=== PATIENT | female | born 1950 | race Caucasian/White ===

== ENCOUNTER → 2018-09-28 | Outpatient (CLI) | payer MEDICARE, OTHER ==
[~2018-09-28] MED LIST: CALC600T12 PO; CRAN500C4 PO; CYAN100088 PO; DULO60CA6 PO; FERR-65 PO; FURO40TA4 PO; GABA-488 PO; LEVO750T9 PO; MORP-33 PO; NF-MYC250C PO; NF-PYRD60T PO; NFBIOT1000 PO; OMEP40CA36 PO; ONDN4T PO; OXYC10TA7 PO; PRD10T PO; ROPI0.5T2 PO; SPIR25TA5 PO
[2018-09-28 11:32] LABS: BASOPHILS # (AUTO) 0.1 10^3/uL (0.0-0.1); BASOPHILS % (AUTO) 1 % (0-10); EOSINOPHILS # (AUTO) 0.1 10^3/uL (0.0-0.3); EOSINOPHILS % (AUTO) 1 % (0-10); HEMATOCRIT 34 % (35-52); HEMOGLOBIN 10.7 G/DL (11.5-16.0); LYMPHOCYTES # (AUTO) 2.1 X 10^3 (1.0-4.0); LYMPHOCYTES % (AUTO) 22 % (12-44); MEAN CORPUSCULAR HEMOGLOBIN 33 PG (25-34); MEAN CORPUSCULAR HGB CONC 32 G/DL (32-36); MEAN CORPUSCULAR VOLUME 105 FL (80-99); MEAN PLATELET VOLUME 10.3 FL (7.4-10.4); MONOCYTES # (AUTO) 0.6 X 10^3 (0.0-1.0); MONOCYTES % (AUTO) 6 % (0-12); NEUTROPHILS # (AUTO) 6.8 X 10^3 (1.8-7.8); NEUTROPHILS % (AUTO) 71 % (42-75); PLATELET COUNT 319 10^3/uL (130-400); RED CELL DISTRIBUTION WIDTH 13.5 % (10.0-14.5); WHITE BLOOD COUNT 9.6 10^3/uL (4.3-11.0)
== END ==
LOC: LAB 11:19
PROVIDERS: ATTEND Surgery
DX: L98.494 Non-pressure chronic ulcer of skin of other sites with necrosis of bone (principal)
CPT/HCPCS: 36415; 85025

== ENCOUNTER → 2018-09-28 | Outpatient (CLI) | payer MEDICARE, OTHER | LOC: WOUNDCARE 09:06 | PROVIDERS: ATTEND Surgery | DX: M27.2 Inflammatory conditions of jaws (principal); M86.48 Chronic osteomyelitis with draining sinus, other site; E44.0 Moderate protein-calorie malnutrition; S01.80XA Unspecified open wound of other part of head, initial encounter; Z79.83 Long term (current) use of bisphosphonates | CPT/HCPCS: 99213 ==

== ENCOUNTER → 2018-10-16 | Outpatient (CLI) | payer MEDICARE, OTHER ==
[~2018-10-16] MED LIST changes: +ONDA4TAB11 PO
== END ==
LOC: WOUNDCARE 08:10
PROVIDERS: ATTEND Surgery
DX: M86.48 Chronic osteomyelitis with draining sinus, other site (principal); S01.80XA Unspecified open wound of other part of head, initial encounter; E44.0 Moderate protein-calorie malnutrition; M27.2 Inflammatory conditions of jaws; Z79.83 Long term (current) use of bisphosphonates
CPT/HCPCS: 99212

== ENCOUNTER 2018-10-17 23:47 | Emergency (ER) | payer MEDICARE, OTHER ==
[~2018-10-17] VITALS: Ht 165.1 cm; Wt 51.3 kg
[~2018-10-17 23:47] MED LIST changes: -ONDA4TAB11 PO
--- NOTE | 2018-10-18 00:09 | ED GI ---
General Stated Complaint: FEEDING TUBE CAME OUT Source of Information: Patient Exam Limitations: No Limitations History of Present Illness Date Seen by Provider: Oct 18, 2018 Time Seen by Provider: 23:55 Initial Comments The patient presents to ER by private conveyance from home with chief complaint that she had her jejunum nasal tube displaced tonight. She tried passing it back down herself was unable. She had it placed about 10 days ago at for malabsorption. She has not been able to tolerate any of the oral feeds she was put on. She is now on Isocal which has been working and she gained 8 pounds in the last 10 days. She originally had malabsorption secondary to having a Fidelia-en -Y gastric bypass secondary to multiple adhesions during surgery a few years ago. She also has been having some difficulties with eating because of a necrosis of the right lower mandible for which she is given start hyperbaric treatment with Dr. Dhaliwal next week. She denies any nausea vomiting fevers chills cough. Allergies and Home Medications Allergies Coded Allergies: No Known Drug Allergies (Unverified , 07/07/15) Home Medications Biotin 1,000 Mcg Tablet, 1,000 MCG PO DAILY, (Reported) Calcium Carbonate 600 Mg Tablet, 600 MG PO DAILY, (Reported) Cranberry Extract 500 Mg Capsule, 500 MG PO DAILY, (Reported) Cyanocobalamin (Vitamin B-12) 1,000 Mcg Tablet, 1,000 MCG PO DAILY, (Reported) Duloxetine HCl 60 Mg Capsule.dr, 60 MG PO DAILY, (Reported) Ferrous Sulfate 325 Mg Tablet, 325 MG PO DAILY, (Reported) Furosemide 40 Mg Tablet, 40 MG PO DAILY, (Reported) Gabapentin 300 Mg Capsule, 300 MG PO TID, (Reported) Mycophenolate Mofetil 250 Mg Capsule, 750 MG PO BID Prescribed by: ARIAS SANTANA on 07/09/15 0946 Omeprazole 40 Mg Capsule.dr, 40 MG PO DAILY, (Reported) Ondansetron HCl 4 Mg Tab, 4 MG PO Q6H PRN for NAUSEA, (Reported) Oxycodone HCl 10 Mg Tablet, 10 MG PO Q4H PRN for PAIN, (Reported) Prednisone 10 Mg Tab, 10 MG PO DAILY, (Reported) Pyridostigmine Duke 60 Mg Tab, 60 MG PO TID, (Reported) Ropinirole HCl 0.5 Mg Tablet, 0.5 MG PO HS, (Reported) Spironolactone 25 Mg Tablet, 25 MG PO DAILY, (Reported) Patient Home Medication List Home Medication List Reviewed: Yes Review of Systems Review of Systems Constitutional: No chills, No diaphoresis EENTM: No Blurred Vision, No Double Vision Respiratory: Denies Cough, Denies Shortness of Air Cardiovascular: Denies Chest Pain, Denies Edema Gastrointestinal: Denies Constipated, Denies Diarrhea Genitourinary: Denies Burning, Denies Discharge Musculoskeletal: No back pain, No joint pain Past Aawkbvq-Unqnoj-Msbnsf Hx Patient Social History Alcohol Use: Denies Use Recreational Drug Use: No Smoking Status: Never a Smoker Recent Foreign Travel: No Contact w/Someone Who Travel: No Immunizations Up To Date Date of Pneumonia Vaccine: Aug 18, 2012 Date of Influenza Vaccine: Jul 06, 2015 Past Medical History Pneumonia Currently Using CPAP: No Currently Using BIPAP: No Reproductive Disorders: No Fibromyalgia Anxiety, Depression Family Medical History Diabetes mellitus 19 MOTHER FH: lung cancer 19 FATHER Physical Exam Vital Signs Vital Signs - First Documented 10/18/18 00:08 Temp 99.3 Pulse 64 Resp 18 B/P (MAP) 112/55 (74) Pulse Ox 97 O2 Delivery Room Air Capillary Refill : Height/Weight/BMI Height: 5'6.00" Weight: 108lbs. 9.0oz. 49.067082wm; BMI Method: General Appearance: WD/WN, no apparent distress HEENT: PERRL/EOMI, normal ENT inspection, pharynx normal Neck: non-tender, full range of motion, normal inspection Respiratory: no respiratory distress, no accessory muscle use Cardiovascular: normal peripheral pulses, regular rate, rhythm, no edema Peripheral Pulses: 2+ Radial Pulses (R), 2+ Radial Pulses (L) Gastrointestinal: non tender, soft Progress/Results/Core Measures Results/Orders My Orders Orders - KIRT JAMES Ondansetron Injection (Zofran Injectio (10/18/18 00:30) Chest 1 View, Ap/Pa Only (10/18/18 00:42) Chest 1 View, Ap/Pa Only (10/18/18 ) Medications Given in ED Current Medications Medications Dose Ordered Sig/Lola Route Start Time Stop Time Status Last Admin Dose Admin Ondansetron HCl 4 mg ONCE ONCE IM 10/18/18 00:30 10/18/18 00:31 DC 10/18/18 00:52 4 MG Vital Signs/I&O 10/18/18 00:08 Temp 99.3 Pulse 64 Resp 18 B/P (MAP) 112/55 (74) Pulse Ox 97 O2 Delivery Room Air Progress Progress Note #1: Time: 00:09 Progress Note 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 Progress Note #2: Time: 01:02 Progress Note We'll let her lie on her right side for about 20-30 minutes and then repeat an x -ray. Diagnostic Imaging Diagonstic Imaging: Xray Plain Films/CT/US/NM/MRI: chest, abdomen Comments The distal tip of the nasoduodenal tube is on the left side of the midline moving into or away from the detector. Reviewed: Reviewed by Me Diagonstic Imaging: Xray Plain Films/CT/US/NM/MRI: chest, abdomen Comments No real interval change from previous x-ray. Reviewed: Reviewed by Me Departure Impression Primary Impression: Gastrointestinal tube present Additional Impression: Complaint associated with gastric tube Disposition: 01 HOME, SELF-CARE Condition: Improved Departure-Patient Inst. Decision time for Depature: 02:03 Referrals: SELFHAILEY MD (PCP/Family) Primary Care Physician Patient Instructions: Enteral Feeding Add. Discharge Instructions: Current sleep in her right side tonight. Tomorrow resume your feeds. If you have nausea or vomiting you can take the ondansetron one tablet every 6 hours as needed. Scripts Ondansetron (Ondansetron Odt) 4 Mg Tab.rapdis 4 MG PO Q6H PRN for NAUSEA/VOMITING, #8 TAB 0 Refills Prov: KIRT JAMES 10/18/18 KIRT JAMES Oct 18, 2018 00:09
[2018-10-18] MEDS ORDERED: ONDANSETRON 4 MG/2 ML (SDV) Z0FRAN IM ONE (00:30)
[2018-10-18] MEDS ORDERED: ONDA4TAB11 PO (02:04)
[2018-10-18 02:15] VITALS: BP 98/40
--- NOTE | 2018-10-18 05:44 | Diagnostic Imaging Report ---
INDICATION: CHECK TUBE PLACEMENT COMPARISON: Earlier the same day FINDINGS: Single frontal view of the chest demonstrates normal heart size and pulmonary vascularity. The lungs are well aerated and clear. No large pleural effusion or pneumothorax is seen. The visualized osseous structures show no acute abnormalities. Dobbhoff tube remains coiled in the stomach. IMPRESSION: 1. No acute cardiopulmonary process. 2. Dobbhoff tube coiled in the stomach. Dictated by: Dictated on workstation # [id number]
--- NOTE | 2018-10-18 05:45 | Diagnostic Imaging Report ---
INDICATION: Evaluate Dobbhoff tube COMPARISON: 07/10/2015 FINDINGS: Single frontal view of the chest demonstrates normal heart size and pulmonary vascularity. The lungs are well aerated and clear. No large pleural effusion or pneumothorax is seen. The visualized osseous structures show no acute abnormalities. Indwelling Dobbhoff tube is coiled in the stomach. IMPRESSION: 1. No acute cardiopulmonary process. Dictated by: Dictated on workstation # [id number]
== END 2018-10-18 02:16 | disposition home or self-care (01) ==
LOC: EDUNIT# 23:47 → ER 23:49
DX: K94.23 Gastrostomy malfunction (principal); F41.9 Anxiety disorder, unspecified; F32.9 Major depressive disorder, single episode, unspecified; Z98.84 Bariatric surgery status; Z79.52 Long term (current) use of systemic steroids; Z87.01 Personal history of pneumonia (recurrent); Z80.1 Family history of malignant neoplasm of trachea, bronchus and lung
CPT/HCPCS: 71045

== ENCOUNTER → 2018-10-23 | Outpatient (CLI) | payer MEDICARE, OTHER ==
[~2018-10-23] MED LIST changes: +ONDA4TAB11 PO
== END ==
LOC: WOUNDCARE 08:16
PROVIDERS: ATTEND Surgery
DX: M86.48 Chronic osteomyelitis with draining sinus, other site (principal); S01.80XA Unspecified open wound of other part of head, initial encounter; E44.0 Moderate protein-calorie malnutrition; M27.2 Inflammatory conditions of jaws; Z79.83 Long term (current) use of bisphosphonates
CPT/HCPCS: 99212

== ENCOUNTER → 2018-10-30 | Outpatient (CLI) | payer MEDICARE, OTHER | LOC: WOUNDCARE 08:21 | PROVIDERS: ATTEND Surgery | DX: M86.48 Chronic osteomyelitis with draining sinus, other site (principal); S01.80XA Unspecified open wound of other part of head, initial encounter; E44.0 Moderate protein-calorie malnutrition; M27.2 Inflammatory conditions of jaws; X58.XXXA Exposure to other specified factors, initial encounter; Z79.83 Long term (current) use of bisphosphonates | CPT/HCPCS: 99212 ==

== ENCOUNTER → 2018-11-06 | Outpatient (CLI) | payer MEDICARE, OTHER | LOC: WOUNDCARE 08:12 | PROVIDERS: ATTEND Surgery | DX: M86.48 Chronic osteomyelitis with draining sinus, other site (principal); S01.80XA Unspecified open wound of other part of head, initial encounter; E44.0 Moderate protein-calorie malnutrition; M27.2 Inflammatory conditions of jaws; Z79.83 Long term (current) use of bisphosphonates; X58.XXXA Exposure to other specified factors, initial encounter | CPT/HCPCS: 99212 ==

== ENCOUNTER → 2018-11-13 | Outpatient (CLI) | payer MEDICARE, OTHER | LOC: WOUNDCARE 08:08 | PROVIDERS: ATTEND Surgery | DX: M86.48 Chronic osteomyelitis with draining sinus, other site (principal); S01.80XA Unspecified open wound of other part of head, initial encounter; E44.0 Moderate protein-calorie malnutrition; M27.2 Inflammatory conditions of jaws; H61.21 Impacted cerumen, right ear; Z79.83 Long term (current) use of bisphosphonates; X58.XXXA Exposure to other specified factors, initial encounter | CPT/HCPCS: 99212 ==

== ENCOUNTER → 2018-11-27 | Outpatient (CLI) | payer MEDICARE, OTHER | LOC: WOUNDCARE 08:09 | PROVIDERS: ATTEND Surgery | DX: S01.80XA Unspecified open wound of other part of head, initial encounter (principal); M86.48 Chronic osteomyelitis with draining sinus, other site; M27.2 Inflammatory conditions of jaws; T70.0XXA Otitic barotrauma, initial encounter; Z79.83 Long term (current) use of bisphosphonates; X58.XXXA Exposure to other specified factors, initial encounter | CPT/HCPCS: 99212 ==

== ENCOUNTER → 2018-12-11 | Outpatient (CLI) | payer MEDICARE, OTHER | LOC: WOUNDCARE 08:15 | PROVIDERS: ATTEND Surgery | DX: S01.80XA Unspecified open wound of other part of head, initial encounter (principal); M86.48 Chronic osteomyelitis with draining sinus, other site; M27.2 Inflammatory conditions of jaws; Z79.83 Long term (current) use of bisphosphonates; X58.XXXA Exposure to other specified factors, initial encounter | CPT/HCPCS: 99212 ==

== ENCOUNTER → 2018-12-23 | Outpatient (CLI) | payer MEDICARE, OTHER | LOC: WOUNDCARE 12:36 | PROVIDERS: ATTEND Nurse Practitioner | DX: M86.48 Chronic osteomyelitis with draining sinus, other site (principal); M27.2 Inflammatory conditions of jaws; S01.80XA Unspecified open wound of other part of head, initial encounter; Z79.83 Long term (current) use of bisphosphonates; X58.XXXA Exposure to other specified factors, initial encounter | CPT/HCPCS: 99212 ==

== ENCOUNTER → 2018-12-30 | Outpatient (CLI) | payer MEDICARE, OTHER | LOC: WOUNDCARE 09:29 | PROVIDERS: ATTEND Surgery | DX: M86.48 Chronic osteomyelitis with draining sinus, other site (principal); M27.2 Inflammatory conditions of jaws; S01.80XA Unspecified open wound of other part of head, initial encounter; X58.XXXA Exposure to other specified factors, initial encounter; Z79.83 Long term (current) use of bisphosphonates | CPT/HCPCS: 99212 ==

== ENCOUNTER → 2019-01-04 | Outpatient (CLI) | payer MEDICARE, OTHER | LOC: WOUNDCARE 08:06 | PROVIDERS: ATTEND Surgery | DX: M86.48 Chronic osteomyelitis with draining sinus, other site (principal); M27.2 Inflammatory conditions of jaws | CPT/HCPCS: 99212 ==

== ENCOUNTER → 2019-01-15 | Outpatient (CLI) | payer MEDICARE, OTHER | LOC: WOUNDCARE 08:01 | PROVIDERS: ATTEND Surgery | DX: M86.48 Chronic osteomyelitis with draining sinus, other site (principal); M27.2 Inflammatory conditions of jaws | CPT/HCPCS: 99212 ==

== ENCOUNTER → 2019-01-20 | Outpatient (CLI) | payer MEDICARE, OTHER | LOC: WOUNDCARE 08:11 | PROVIDERS: ATTEND Surgery | DX: M86.48 Chronic osteomyelitis with draining sinus, other site (principal); M27.2 Inflammatory conditions of jaws | CPT/HCPCS: 99212 ==

== ENCOUNTER 2019-01-26 08:30 | Outpatient (RCR) | payer MEDICARE, OTHER | END 2019-01-26 12:00 | disposition home or self-care (01) | LOC: WOUNDCARE 08:30 | PROVIDERS: ATTEND Surgery | DX: M27.2 Inflammatory conditions of jaws (principal); M86.48 Chronic osteomyelitis with draining sinus, other site; S01.80XA Unspecified open wound of other part of head, initial encounter; E44.0 Moderate protein-calorie malnutrition; H61.21 Impacted cerumen, right ear; Z79.83 Long term (current) use of bisphosphonates; X58.XXXA Exposure to other specified factors, initial encounter | CPT/HCPCS: 99183; 99212 ==

== ENCOUNTER → 2019-01-27 | Outpatient (CLI) | payer MEDICARE, OTHER | LOC: WOUNDCARE 08:17 | PROVIDERS: ATTEND Surgery | DX: M86.48 Chronic osteomyelitis with draining sinus, other site (principal); M27.2 Inflammatory conditions of jaws | CPT/HCPCS: 99212 ==

== ENCOUNTER → 2019-02-15 | Outpatient (CLI) | payer MEDICARE, OTHER | LOC: WOUNDCARE 13:01 | PROVIDERS: ATTEND Surgery | DX: M86.48 Chronic osteomyelitis with draining sinus, other site (principal); M27.2 Inflammatory conditions of jaws | CPT/HCPCS: 99212 ==

== ENCOUNTER → 2019-03-10 | Outpatient (CLI) | payer MEDICARE, OTHER | LOC: WOUNDCARE 08:53 | PROVIDERS: ATTEND Surgery | DX: S01.80XA Unspecified open wound of other part of head, initial encounter (principal); M86.48 Chronic osteomyelitis with draining sinus, other site; M27.2 Inflammatory conditions of jaws; I96 Gangrene, not elsewhere classified | CPT/HCPCS: 99212 ==

== ENCOUNTER → 2019-03-23 | Outpatient (CLI) | payer MEDICARE, OTHER | LOC: WOUNDCARE 14:00 | PROVIDERS: ATTEND Surgery | DX: M86.48 Chronic osteomyelitis with draining sinus, other site (principal); S01.80XA Unspecified open wound of other part of head, initial encounter; M27.2 Inflammatory conditions of jaws; I96 Gangrene, not elsewhere classified | CPT/HCPCS: 99212 ==

== ENCOUNTER → 2019-04-02 | Outpatient (CLI) | payer MEDICARE, OTHER | LOC: WOUNDCARE 08:20 | PROVIDERS: ATTEND Surgery | DX: M46.48 Discitis, unspecified, sacral and sacrococcygeal region (principal); S01.80XA Unspecified open wound of other part of head, initial encounter; M27.2 Inflammatory conditions of jaws; E44.1 Mild protein-calorie malnutrition; I96 Gangrene, not elsewhere classified | CPT/HCPCS: 87070; 87075; 87076; 87077; 87205; 99212 ==

== ENCOUNTER → 2019-04-02 | Outpatient (CLI) | payer MEDICARE, OTHER | LOC: LAB 09:00 | PROVIDERS: ATTEND Surgery | DX: M86.48 Chronic osteomyelitis with draining sinus, other site (principal); S01.80XA Unspecified open wound of other part of head, initial encounter; M27.2 Inflammatory conditions of jaws; E44.1 Mild protein-calorie malnutrition | CPT/HCPCS: 36415; 84134; 85652 ==

== ENCOUNTER → 2019-04-07 | Outpatient (CLI) | payer MEDICARE, OTHER | LOC: WOUNDCARE 14:37 | PROVIDERS: ATTEND Surgery | DX: M86.48 Chronic osteomyelitis with draining sinus, other site (principal); S01.80XA Unspecified open wound of other part of head, initial encounter; M27.2 Inflammatory conditions of jaws; E44.1 Mild protein-calorie malnutrition; I96 Gangrene, not elsewhere classified | CPT/HCPCS: 99212 ==

== ENCOUNTER → 2019-04-16 | Outpatient (CLI) | payer MEDICARE, OTHER | LOC: WOUNDCARE 08:04 | PROVIDERS: ATTEND Surgery | DX: M86.48 Chronic osteomyelitis with draining sinus, other site (principal); S01.80XA Unspecified open wound of other part of head, initial encounter; M27.2 Inflammatory conditions of jaws; E44.1 Mild protein-calorie malnutrition | CPT/HCPCS: 99212 ==

== ENCOUNTER → 2019-04-23 | Outpatient (CLI) | payer MEDICARE, OTHER | LOC: WOUNDCARE 10:08 | PROVIDERS: ATTEND Surgery | DX: M86.48 Chronic osteomyelitis with draining sinus, other site (principal); S01.80XA Unspecified open wound of other part of head, initial encounter; M27.2 Inflammatory conditions of jaws; E44.1 Mild protein-calorie malnutrition | CPT/HCPCS: 99212 ==

== ENCOUNTER → 2019-04-28 | Outpatient (CLI) | payer MEDICARE, OTHER | LOC: WOUNDCARE 10:19 | PROVIDERS: ATTEND Surgery | DX: M86.48 Chronic osteomyelitis with draining sinus, other site (principal); S01.80XA Unspecified open wound of other part of head, initial encounter; M27.2 Inflammatory conditions of jaws; E44.1 Mild protein-calorie malnutrition | CPT/HCPCS: 99212 ==

== ENCOUNTER → 2019-05-12 | Outpatient (CLI) | payer MEDICARE, OTHER | LOC: WOUNDCARE 09:54 | PROVIDERS: ATTEND Surgery | DX: M86.48 Chronic osteomyelitis with draining sinus, other site (principal); S01.80XA Unspecified open wound of other part of head, initial encounter; M27.2 Inflammatory conditions of jaws; E44.1 Mild protein-calorie malnutrition | CPT/HCPCS: 99212 ==

== ENCOUNTER → 2019-05-18 | Outpatient (CLI) | payer MEDICARE, OTHER ==
--- NOTE | 2019-05-18 09:59 | Diagnostic Imaging Report ---
INDICATION: Mid back pain. COMPARISON: None. FINDINGS: 3 views of the thoracic column demonstrate a single mid thoracic compression fracture with approximately 30% height loss. This is chronic and was seen on the 2015 CT examination. Questionable minimal compression deformity seen involving T11. This was not present on the 2015 CT. There is no osseous lesion. Mild degenerative changes are seen throughout. IMPRESSION: 1. Age indeterminate T11 compression fracture. 2. Chronic T7 compression fracture. 3. Mild diffuse degenerative disc disease. Dictated by: Dictated on workstation # [id number]
== END ==
LOC: RAD FS 09:28
PROVIDERS: ATTEND Family Medicine
DX: M48.54XA Collapsed vertebra, not elsewhere classified, thoracic region, initial encounter for fracture (principal); M51.34 Other intervertebral disc degeneration, thoracic region
CPT/HCPCS: 72072

== ENCOUNTER → 2019-05-24 | Outpatient (CLI) | payer MEDICARE, OTHER | LOC: WOUNDCARE 08:21 | PROVIDERS: ATTEND Surgery | DX: M86.48 Chronic osteomyelitis with draining sinus, other site (principal); S01.80XA Unspecified open wound of other part of head, initial encounter; M27.2 Inflammatory conditions of jaws; E44.1 Mild protein-calorie malnutrition | CPT/HCPCS: 99212 ==

== ENCOUNTER 2019-06-09 09:39 | Inpatient (IN) | payer MEDICARE, OTHER ==
[~2019-06-09] VITALS: Ht 165.1 cm; Wt 56.1 kg
[2019-06-09] MEDS ORDERED: LOPERAMIDE 2 MG (IMODIUM) TABLET PO PRN (10:30)
[2019-06-09] MEDS ORDERED: diphenhydrAMINE 25 MG TAB (BENADRYL) PO PRN (10:30)
[2019-06-09] MEDS ORDERED: MELATONIN 3 MG TABLET PO PRN (10:30)
[2019-06-09] MEDS ORDERED: ONDANSETRON 4 MG (ZOFRAN) ORAL DISSOLVE TAB PO PRN (10:30)
[2019-06-09] MEDS ORDERED: CALCIUM CARBONATE 500 MG (TUMS) TAB.CHEW PO PRN (10:30)
[2019-06-09] MEDS ORDERED: DOCUSATE SODIUM 100 MG (COLACE) CAP PO PRN (10:30)
[2019-06-09] MEDS ORDERED: BIOT10005 PO (13:40)
[2019-06-09] MEDS ORDERED: POLY17PO6 PO (13:40)
[2019-06-09] MEDS ORDERED: VITA-203 PO (13:40)
[2019-06-09] MEDS ORDERED: CALC-231 PO (13:40)
[2019-06-09] MEDS ORDERED: IMMU1VIA SC (13:40)
[2019-06-09] MEDS ORDERED: CARV3.122 PO (13:40)
[2019-06-09] MEDS ORDERED: SENN-145 PO (13:40)
[2019-06-09] MEDS ORDERED: TEMA30CA PO (13:40)
[2019-06-09] MEDS ORDERED: DOXY100C2 PO (13:40)
[2019-06-09] MEDS ORDERED: LIPA1CAP4 PO ×2 (13:40)
[2019-06-09] MEDS ORDERED: CHOL5000 PO (13:40)
[2019-06-09] MEDS ORDERED: DULO60CA59 PO (13:40)
[2019-06-09] MEDS ORDERED: PRD20T JT (13:40)
[2019-06-09] MEDS ORDERED: MULT1TAB69 PO (13:40)
[2019-06-09] MEDS ORDERED: MELO15TA39 PO (13:40)
[2019-06-09] MEDS ORDERED: ERGO50006 PO (13:40)
[2019-06-09] MEDS ORDERED: PYRI100T2 PO (13:40)
[2019-06-09] MEDS ORDERED: PRAV10TA PO (13:40)
[2019-06-09] MEDS ORDERED: CYAN500T44 PO (13:40)
[2019-06-09] MEDS ORDERED: CALC-962 PO (13:48)
--- NOTE | 2019-06-09 13:49 | NUR ---
UPDATED MED REC WITH DISCHARGE ORDERS FROM AT THIS TIME. WHEN THE PATIENT ARRIVES AND I CAN SEE THE EXT MED HX I WILL CHECK THAT WITH WHAT WAS ON THE DISCHARGE FROM . I WILL CHANGE THE MED REC BACK TO WHAT THE PATIENT WAS TAKING PRIOR TO DISCHARGE FROM AT A LATER DATE FOR PROPER DISCHARGE TO HOME ORDERS. Addendum: 06/11/19 at 1100 by ANGELO SETH [facility] REMOVED NEW PRESCRIPTION ORDERED FOR PREDNISONE. I COMPARED THE OTHER ORDERS WITH THE EXT MED HX. ROPINIROLE 0.5MG 2 TABS AT HS WAS CONTINUED HOWEVER ACCORDING TO THE EXT MED HX ROPINIROLE 0.5MG #30 WAS FILLED 05-14-19 - I UPDATED THE MED REC WITH 1 AT HS DIRECTIONS. DOXYCYCLINE 100MG BID WAS CONTINUED, ACCORDING TO THE EXT MED HX IT WAS LAST FILLED #60 03-30-19 - I LEFT IT ON THE MED REC BUT NOTED THE PAST DUE FILL DATE. IN ADDITION TRAMADOL 50MG 1-2 BID PRN WAS FILLED #116 05-21-19 - THIS WAS NOT ADDRESSED ON THE DISCHARGE INSTRUCTIONS, I ADDED IT TO THE MED REC AT THIS TIME TO BE ADDRESSED AT DISCHARGE. OTC MEDS REPORTED: BIOTIN 10,000 DAILY CALCIUM +D TID VITAMIN D3 5000 UNITS DAILY B 12 DAILY IRON 325MG DAILY MTV 2 DAILY MIRALAX DAILY B6 DAILY SENNA S BID VITAMIN A DAILY
--- NOTE | 2019-06-09 21:10 | NUR ---
QuianaJack becker admitted to room 228-1, with an admitting diagnosis of Myasthenia Gravis Exacerbation, on 06/09/19 from home via private vehicle, accompanied by family. JACK CARDONA introduced to surroundings, call light, bed controls, phone, TV, temperature control, lights, meal times, smoking policy, visitor policy, side rail policy, bathrooms and showers. Patient Rights given to patient in the handbook. JACK CARDONA verbalizes understanding that [facility] is not responsible for the loss or damage to any personal effects or valuables that are kept in the patients posession during their hospitalization. The following Patient Care Plans were discussed with the patient and her family: Discharge Planning,Physical therapy, and tissue perfusion. JACK CARDONA verbalizes understanding of Interdisciplinary Patient Education. Patient and family were informed about the Rapid Response Team and its purpose. Patient received Patient Rights Booklet, which includes Privacy Act Statement and Data Collection Information Summary.
[2019-06-09] MEDS: SENNA W/DOCUSATE (SENOKOT S) TABLET PO SCH (21:47)
[2019-06-09 21:50] VITALS: BP 115/56
[2019-06-09 21:53] VITALS: BP 115/56
[2019-06-09] MEDS: rOPINIRole 0.25 MG (REQUIP) TAB PO SCH (22:16)
[2019-06-10] MEDS: FERROUS SULF 325 MG (IRON) TAB PO SCH (06:08)
[2019-06-10] MEDS: LIPASE/AMYLASE/PROTEASE (PANCRELIPASE) 5,000 UNITS CAP PO SCH ×3 (06:08→17:22)
[2019-06-10] MEDS: predniSONE 20 MG TAB PO SCH (06:08)
[2019-06-10] MEDS: MULTIVIT W/MINERALS TAB (THERAGRAN M) PO SCH (06:08)
[2019-06-10] MEDS: CYANOCOBALAMIN 1,000 MCG (VITAMIN B-12) TABLET PO SCH ×2 (06:10→09:53)
[2019-06-10 06:33] VITALS: BP 126/64
[2019-06-10] MEDS ORDERED: FLU QUADRIvalent (5+ YOA) 2019-2020 (AFLURIA) 0.5 ML IM ONE (07:15)
[2019-06-10] MEDS ORDERED: LIPASE/AMYLASE/PROTEASE (PANCRELIPASE) 5,000 UNITS CAP PO PRN (08:00)
[2019-06-10] MEDS ORDERED: DOXYCYCLINE 100 MG (VIBRAMYCIN) TABLET PO SCH (09:00)
--- NOTE | 2019-06-10 09:39 | PM&R H&P / Post Admit Assess ---
History of Present Illness HPI/Chief Complaint PCP Dr. Carbone CC: Severe debility with MyastheniaGravis HPI: This is a pt who is being transferredfrom Med after and ICU coursefollowing klebsiella pneumoniaseptic shock, completed Meropenem and. extubated doing very well. 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 J Tube maintained for nutrition support and that did get replaced prior to transfer from since a piece had broken off when she was getting into the car to come to rehab She has been to rehab in the past and she usually runs low on minerals and B12 due to gastric bypass before. Her Hgb remains stable at 11.9 and her phosphorus was low but it was 2.4 today and creatinine remains normal at 0.6 She remains on Prednisone 40mg since she is tolerating her diet well.PLOF is use of walker at home and mostly independent with ADL's. Elliot Gutiérrez, MSIII: Barriers to discharge/return home: * Pneumonia has resolved, however she reports she remains SOB * Main concern for therapy is her endurance and SOB * Otherwise feels capable of going about her ADLs, has assistance from her at home. Looks forward to numerous family events next year. 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, continues to see for management * PE * L eye ptosis noted * On auscultation, heart RRR, lungs CTAB * Strength testing 5 for UE, LE * Patellar reflex present on L, not elicited on R * No deficits noted on exam of CN 7 * on testing of CN 3,4,6, noted L eye nystagmus when looking down and away Source: patient, old records Exam Limitations: no limitations Date Seen 06/10/19 Time Seen by a Provider: 08:30 Attending Physician Brenda Phillips DO PCP Jesus Carbone MD Referring Physician Date of Admission Jun 09, 2019 at 21:01 Home Medications & Allergies Home Medications Reviewed patient Home Medication Reconciliation performed by pharmacy medication reconciliations injection molding technician and/or nursing. Patients Allergies have been reviewed. Allergies Allergies Coded Allergies diphenhydramine (Verified Allergy, Intermediate, MUSCLE PAIN; AGITATION, 06/09/19) promethazine (Verified Allergy, Mild, AGITATION, 06/09/19) Past Mgbpqku-Smgdwj-Lhozjs Hx Past Med/Social Hx: Reviewed Nursing Past Med/Soc Hx, Reviewed and Corrections made Patient Social History Marrital Status: Employed/Student: retired Alcohol Use: Denies Use Recreational Drug Use: No Smoking Status: Never a Smoker Physical Abuse Screen: No Sexual Abuse: No Recent Foreign Travel: No Contact w/other who traveled: No Recent Hopitalizations: Yes (05/28/19) Recent Infectious Disease Expo: No Immunizations Up To Date Date of Pneumonia Vaccine: Aug 18, 2012 Date of Influenza Vaccine: Jul 06, 2015 Seasonal Allergies Seasonal Allergies: No Past Medical History Currently Using CPAP: No Currently Using BIPAP: No MG 8 yrs ago Reproductive: No Sexually Transmitted Disease: No HIV/AIDS: No Female Reproductive Disorders: Denies Gastrointestinal: Pancreatitis, Chronic Diarrhea Musculoskeletal: Osteoporosis, Fractures HEENT: Tonsilitis Loss of Vision: Denies Hearing Impairment: Denies Psychosocial: Anxiety, Depression History of Blood Disorders: No Adverse Reaction to Blood Castellanos: No Family History Diabetes mellitus 19 MOTHER FH: lung cancer 19 FATHER Review of Systems Constitutional: see HPI, malaise, weakness EENTM: no symptoms reported Respiratory: dyspnea on exertion Cardiovascular: no symptoms reported Gastrointestinal: no symptoms reported Genitourinary: no symptoms reported Musculoskeletal: back pain, joint pain Skin: no symptoms reported Psychiatric/Neurological: No Symptoms Reported All Other Systems Reviewed Negative Unless Noted: Yes Physical Exam Exam Vital Signs Vital Signs Date Time Temp Pulse Resp B/P (MAP) Pulse Ox O2 Delivery O2 Flow Rate FiO2 06/10/19 08:15 Room Air 06/10/19 06:33 36.6 81 18 126/64 (84) 91 Capillary Refill : General Appearance: No Apparent Distress, WD/WN, Chronically ill, Cachetic, Thin HEENT: PERRL/EOMI, Normal ENT Inspection, Pharynx Normal, Moist Mucous Membranes Neck: Full Range of Motion, Normal Inspection, Non Tender, Supple Respiratory: Chest Non Tender, Lungs Clear, Normal Breath Sounds, No Accessory Muscle Use, No Respiratory Distress Cardiovascular: Regular Rate, Rhythm, No Edema, No Gallop, No JVD, No Murmur Gastrointestinal: Normal Bowel Sounds, No Organomegaly, No Pulsatile Mass, Non Tender, Soft Back: Normal Inspection, No CVA Tenderness, No Vertebral Tenderness Extremity: Normal Capillary Refill, Normal Inspection, Normal Range of Motion, Non Tender, No Calf Tenderness, No Pedal Edema Neurologic/Psychiatric: Alert, Oriented x3, No Motor/Sensory Deficits, Normal Mood/Affect, online education manager II-XII Norm as Tested, Motor Weakness (generalized all extremities) Skin: Normal Color, Warm/Dry Lymphatic: No Adenopathy Results Results/Procedures Labs Patient resulted labs reviewed. Assessment/Plan Assessment and Plan Assess & Plan/Chief Complaint Assessment: MG s/p vent dependency s/p Klebsiella pneumoniae Osteonecrosis of the jaw hx Gastric bypass hx Vitamin deficiency Chronic diarrhea Malabsorption Plan: Home meds IRF protocol Checked meds (1) Myasthenia gravis Status: Acute (2) S/P gastric bypass (3) Malnutrition (4) B12 deficiency (5) History of ventilator dependency (6) Klebsiella pneumonia (7) Osteonecrosis of jaw (8) Gastrointestinal tube present Status: Acute Post Admission Physician Asses Date seen by provider: Jun 10, 2019 Time seen by provider: 08:30 Admisison Dx: (1) Myasthenia gravis Status: Acute The preadmission screen agrees with the post admission assessment that the patient is a good candidate for inpatient rehabilitation. The patient will have a comprehensive program of inpatient rehabilitation with a goal of maximizing level of functional independence prior to discharge home with family. The patient will have PT/OT ninety minutes per day, each discipline, five days a week for gait, strengthening, conditioning, balance, ADLs, any patient/family/caregiver training as necessary. Speech therapy to do cognitive assessment and treat as indicated. Rehabilitation nursing to assist with bowel, bladder, skin, wound care, medication administration, pain management. Relocation Counselor to assist with discharge planning, community reentry. SCD's for DVT prophylaxis. She appears to be well motivated to participate in three hours of therapy a day. She should be able to tolerate three hours of therapy a day from a medical standpoint. She should benefit from the three hours of therapy a day. She has a reasonable discharge plan, reasonable discharge rehabilitation goals and a supportive family. She has various comorbidities that need to be closely monitored with medications and treatments adjusted on a daily basis as needed. These include: see list Barriers to discharge for this patient who had been independent prior to this are for her to be modified independent to supervision for ADLs and mobility skills prior to discharge home with family, so as to lessen the burden of the caregivers. Risks for this patient include: 1. Fall 2. Fracture 3. DVT 4. Pulmonary embolism 5. Wound infection 6. Skin breakdown 7. Contractures 8. Poorly controlled pain 9. Urinary retention 10. UTI 11. Respiratory infection 12. Aspiration Estimated Length of Stay: 7 days Prognosis: Rehab prognosis appears good for goal of discharge home with family modified independent to supervision for ADLs and mobility skills. BRENDA PHILLIPS DO Jun 10, 2019 09:39
--- NOTE | 2019-06-10 09:47 | Occupational Therapy Eval ---
OT Evaluation-General/PLF Medical Diagnosis Admission Date Jun 09, 2019 at 21:01 Medical Diagnosis: sepsis, pneumonia, myasthenia gravis Onset Date: Jun 03, 2019 Therapy Diagnosis Therapy Diagnosis: decreased functional mobility and ADL function Height/Weight Height (Feet): 5 Height (Inches): 5.00 Weight (Pounds): 113 Weight (Ounces): 0 Precautions Precautions/Isolations: Fall Prevention, Standard Precautions Safety Interventions: Reorient-Attempt Weight Bear Status Weight Bearing Restriction: Weight Bearing/Tolerated Referral Physician: Brenda Pearson DO Referral Reason: Activity Tolerance, Self Care, Evaluation/Treatment, Strengthening/ROM Medical History Pertinent Medical History: GERD Additional Medical History arthritis, pancreatitis, CHD, GERD Current History aspiration; Pneumonia/ sepsis; pt experiencing MG symptoms Reviewed History: Yes Social History Home: Single Level Current Living Status: Spouse Entry Into Home: Stairs With Railing Steps Into Home: 1 Steps Inside Home: 0 Pt lives with spouse, pt expresses spouse also has health concerns. Pt and sp ouse have 1 son within immediate area, 2 children further away. ADL-Prior Level of Function SCALE: Activities may be completed with or without assistive devices. 8-Lxckmpfhes-bfrskwn completes the activity by him/herself with no assistance from a helper. 5-Set-up or Clean-up Assistance-helper sets up or cleans up; patient completes activity. [place] assists only prior to or following the activity. 4-Supervision or Touching Assistance-helper provides verbal cues and/or touching/steadying and/or contact guard assistance as patient completes activity. Assistance may be provided throughout the activity or intermittently. 3-Partial/Moderate Assistance-helper does LESS THAN HALF the effort. Weiser lifts, holds or supports trunk or limbs, but provides less than half the effort. 2-Substantial/Maximal Assistance-helper does MORE THAN HALF the effort. [place]iser lifts or holds trunk or limbs and provides more than half the effort. 0-Adiecblpm-uwxbkm does ALL the effort. Patient does none of the effort to complete the activity. Or, the assistance of 2 or more helpers is required for the patient to complete the activity. If activity was not attempted, code reason: 7-Patient Refused. 9-Not Applicable-not attempted and the patient did not perform the activity before the current illness, exacerbation or injury. 10-Not Attempted due to Environmental Limitations-(lack of equipment, weather restraints, etc.). 88-Not Attempted due to Medical Conditions or Safety Concerns. Self Care: Independent Functional Cognition: Independent DME/Equipment: Bath Chair, Grab Bars (inside walk in shower) DME/Equipment Comments Pt has FWW, used intermittently prior to hospitalization. Occupation: [employer] Self: Yes (did not immediately prior to hospitalization) Leisure Interests: kori OT Current Status Subjective Pt seen reclined in bed, alert and oriented; states "uncomfort" of abdominal tube, expresses she typically has a sponge between skin/ tubing for comfort. Nursing notified. Pt agreeable to OT eval/ treat. Mental Status/Objective Patient Orientation: Person, Place, Time, Situation, Normal For Age Current Glasses/Contacts: Yes Hearing Aids: No Dentures/Partials: Yes Hand Dominance: Left Upper Extremity ROM Impaired BUE L shoulder flexion ~90* R shoulder flexion ~120* Upper Extremity Coordination WFL BUE Upper Extremity Sensation WFL BUE Pt states R LE nerve pain and restless leg syndrome Upper Extremity Strength Impaired BUE 3+/5 ADL-Treatment Eating (QC): 6 Oral Hygiene (QC): 6 (managed packaging, brushed mouth with sponge) Shower/Bathe Self (QC): 5 (SUP) Upper Body Dressing (QC): 5 (SUP) Lower Body Dressing (QC): 5 (SUP) On/Off Footwear (QC): 6 (Completes while sitting) Toileting Hygiene (QC): 6 (Completes with thoroughness) Toilet Transfer (QC): 5 (SBA ) Other Treatments Pt completes ADLs within room, states she did not use FWW immediately prior to hospitalization. Pt utilizes FWW for functional mobility, has good dynamic standing balance. Pt completes grooming at sink, including deodorant and hair care with SUP while seated on FWW. Pt demonstrates good knowledge of current status and past medical history, able to utilize paper/ pen for memory techniques. Pt ambulates with SBA with FWW to therapy gym, states SOB during talking and at night due to anxious thoughts since night she aspirated (1 week ago). Pt states she attempts deep breathing but is anxious that aspiration will happen again. Pt educated and demonstrates back diaphragmatic breathing techniques, pt educated on benefits and use of recoil method to enable greater breathing. Pt educated on benefits of sitting rather than laying down during rehabilitation, and ARU expectations. Pt returns to room, seated in recliner. Pt completes 3 UE theraband exercises with cues for positioning and repetitions; pt educated on not overdoing self, but completing when feeling energized. Pt states goal is to increase safety and endurance. Pt return-demonstrates 3 back/ UE exercises. Pt left with call light in reach, all needs met. Education OT Patient Education: Correct positioning, Disease process, Energy conservation, Exercise program, Home exercise program, Purpose of tx/functional activities, Rehab process, Safety issues Teaching Recipient: Patient Teaching Methods: Demonstration, Discussion Response to Teaching: Verbalize Understanding, Return Demonstration OT Short Term Goals Short Term Goals Eating(FIM): 7 Grooming(FIM): 7 Upper Body Dressing(FIM): 6 Lower Body Dressing(FIM): 6 Toilet/Commode Transfer(FIM): 6 Additional Short Term Goals: 1-Demonstrate ADL Tasks, 2-Verbalize Understanding, 3-ImproveStrength/Mary Grace 1=Demonstrate adherence to instructed precautions during ADL tasks. 2=Patient will verbalize/demonstrate understanding of assistive devices/modifications for ADL. 3=Patient will improve strength/tolerance for activity to enable patient to perform ADL's. OT Retirement Goals Retirement Goals Eating (QC): 6 Oral Hygiene (QC): 6 Shower/Bathe Self (QC): 6 Upper Body Dressing (QC): 6 Lower Body Dressing (QC): 6 On/Off Footwear (QC): 6 Toileting Hygiene (QC): 6 Toilet/Commode Transfer (QC): 6 Additional Goals: 1-Demonstrate ADL Tasks, 2-Verbalize Understanding, 3- ImproveStrength/Mary Grace 1=Demonstrate adherence to instructed precautions during ADL tasks. 2=Patient will verbalize/demonstrate understanding of assistive devices/modifications for ADL. 3=Patient will improve strength/tolerance for activity to enable patient to perform ADL's. OT Education/Plan Problem List/Assessment Assessment: Decreased Activ Tolerance, Decreased UE Strength, Impaired I ADL's, Impaired Self-Care Skills, Restricted Funct UE ROM Discharge Recommendations Plan/Recommendations: Continue POC Therapy Discharge Recommendati: Intermittent Supervision Equpiment Recommendations-D/C: None Patient/Family Goals Pt states goals are to gain endurance and strength. Treatment Plan/Plan of Care Treatment,Training & Education: Yes Patient would benefit from OT for education, treatment and training to promote independence in ADL's, mobility, safety and/or upper extremity function for ADL's. Plan of Care: ADL Retraining, Functional Mobility, Group Exercise/Act as Ind, UE Funct Exercise/Act Treatment Duration: Jun 24, 2019 Frequency: At least 5 of 7 days/Wk (IRF) Estimated Hrs Per Day: 1.5 hours per day Agreement: Yes Rehab Potential: Good Time/GCodes Start Time: 08:15 Stop Time: 09:45 Total Time Billed (hr/min): 90 Billed Treatment Time 1, EVM (15), ADL 4 (60), EX (15)= 90 RAMIRO MAYS OTR Jun 10, 2019 09:47
[2019-06-10] MEDS: VITAMIN D2 50,000 UNITS (1.25 MG) CAP PO SCH (09:51)
[2019-06-10] MEDS: DULoxetine 30 MG (CYMBALTA) CAP PO SCH (09:52)
[2019-06-10] MEDS: PYRIDOXINE (VITAMIN B-6) 50 MG TABLET PO SCH (09:52)
[2019-06-10] MEDS: CARVEDILOL 3.125 MG (COREG) TABLET PO SCH ×2 (09:53→20:32)
[2019-06-10] MEDS: MELOXICAM 7.5 MG (MOBIC) TABLET PO SCH (09:53)
[2019-06-10] MEDS: PANTOPRAZOLE 40 MG (PROTONIX) TAB PO SCH (09:53)
[2019-06-10] MEDS: VITAMIN D3 5,000 UNITS (CHOLECALCIFEROL ) CAPSULE PO SCH (09:53)
[2019-06-10] MEDS: SPIRONOLACTONE 25 MG (ALDACTONE) TAB PO SCH (09:53)
[2019-06-10] MEDS: GABAPENTIN 300 MG (NEURONTIN) CAP PO SCH ×4 (09:54→20:33)
[2019-06-10] MEDS: SENNA W/DOCUSATE (SENOKOT S) TABLET PO SCH ×2 (09:55→20:33)
--- NOTE | 2019-06-10 10:51 | Physical Therapy Evaluation ---
PT Evaluation-General Medical Diagnosis Admission Date Jun 09, 2019 at 21:01 Medical Diagnosis: sepsis, pneumonia, myasthenia gravis Onset Date: Jun 03, 2019 Therapy Diagnosis Therapy Diagnosis: impaired mobility, strength, endurance, balance Height/Weight Height (Feet): 5 Height (Inches): 5.00 Weight (Pounds): 113 Weight (Ounces): 0 Precautions Precautions/Isolations: Fall Prevention, Standard Precautions Referral Physician: Brenda Pearson DO Reason for Referral: Evaluation/Treatment Medical History Pertinent Medical History: GERD Additional Medical History Past Medical History Currently Using CPAP: No Currently Using BIPAP: No Reproductive: No Sexually Transmitted Disease: No HIV/AIDS: No Female Reproductive Disorders: Denies Musculoskeletal: Osteoporosis, Fractures HEENT: Tonsilitis Loss of Vision: Denies Hearing Impairment: Denies Psychosocial: Anxiety, Depression History of Blood Disorders: No Adverse Reaction to Blood Castellanos: No Reviewed History: Yes Social History Home: Single Level Current Living Status: Spouse Entry Into Home: Stairs With Railing PT Steps Into Home: 1 PT Steps Inside Home: 0 Prior Prior Level of Function SCALE: Activities may be completed with or without assistive devices. 6-Ftadpqkiqa-wwnyeqd completes the activity by him/herself with no assistance from a helper. 5-Set-up or Clean-up Assistance-helper sets up or cleans up; patient completes activity. [place] assists only prior to or following the activity. 4-Supervision or Touching Assistance-helper provides verbal cues and/or touching/steadying and/or contact guard assistance as patient completes activity. Assistance may be provided throughout the activity or intermittently. 3-Partial/Moderate Assistance-helper does LESS THAN HALF the effort. [place] lifts, holds or supports trunk or limbs, but provides less than half the effort. 2-Substantial/Maximal Assistance-helper does MORE THAN HALF the effort. [place] lifts or holds trunk or limbs and provides more than half the effort. 5-Djquvnezj-tfguws does ALL the effort. Patient does none of the effort to complete the activity. Or, the assistance of 2 or more helpers is required for the patient to complete the activity. If activity was not attempted, code reason: 7-Patient Refused. 9-Not Applicable-not attempted and the patient did not perform the activity before the current illness, exacerbation or injury. 10-Not Attempted due to Environmental Limitations-(lack of equipment, weather restraints, etc.). 88-Not Attempted due to Medical Conditions or Safety Concerns. Bed Mobility: 6 Transfers (B,C,W/C): 6 Gait: 6 Stairs: 6 Indoor Mobility (Ambulation): Independent Stairs: Independent PT Evaluation-Current Subjective pt in recliner pre-tx. pt agrees to PT this morning. Pt reports no pain at this time but reports she just gets SOB when she works very much. Pt/Family Goals Pt in recliner post-tx with feet down. Pt with nurse call light, room phone, tray table, and all needs met at this time. Objective Patient Orientation: Person, Place, Time, Situation Attachments: Other-See Comments (J tube in lower left quadrant of abdomen.) ROM/Strength Strength Lower Extremities R hip flexor 3+/5 L hip flexor 4-/5 R knee flexion 4-/5 L knee flexion 4+/5 R dorsiflexors 3+/5 L dorsiflexors 4+/5 B/L knee extension 5/5 Integumentary/Posture Posture Pt stands slightly flexed at the hips with mod R sided genu valgus and B/L out toeing. Neuromuscular (Tone, Coordination, Reflexes) hester slides displayed minor coordination impairments in BLE Sensory Vision: Wears Glasses (Pt reports she goes in and out of double vision but currently has none. Pt has decreased L peripheral vision upper worse than lower. Pt has normal visual tracking except for to the left visual varela where the L eye has a jerky response.) Hearing: Functional Hand Dominance: Left Sensation Right Lower Extremit: Impaired (Pt has feeling in all dermatomes but reports decreased sensation around the R great toe from previous nerve damage.) Sensation Left Lower Extremity: Intact Transfers Roll Left to Right (QC): 6 Sit to Lying (QC): 6 Lying to Sitting/Side of Bed(Q: 6 Sit to Stand (QC): 5 Chair/Pma-wu-Jcdws Xfer(QC): 4 (SBA. Pt tries to reach without coming to a full stand.) Car Transfer (QC): 6 Gait Does the Patient Walk?: Yes Mode of Locomotion: Walk Anticipated Mode of Locomotion: Walk Distance (FIM): 3=150 ft Walk 10 feet (QC): 6 Walk 50 ft with 2 Turns(QC): 4 (SBA) Walk 150 ft (QC): 6 Walking 10ft/uneven surface-QC: 4 (SBA) Gait Assistive Device: Walker 4 Wheeled Comments/Gait Description Pt ambulates with a step through pattern with decreased R LE heel first contact and occasional R toe drag. If pt is trying to talk or gets distracted she kicks her walker from time to time with no gross LOB. When turning, pt has minor imbalance but no gross LOB. Wheelchair Training Does the Pt Use a Wheelchair?: No Stairs 1 Step (curb) (QC): 4 (CGA. Pt uses 4 wheeeled walker and picks up to put over step.) 4 Steps (QC): 4 (SBA) 12 Steps (QC): 4 (SBA) Pt navigates stairs SBA with B/L hand rails. Pt uses step to pattern with emphasis on L LE as the strong LE. Balance Sitting Static: Normal Sitting Dynamic: Normal Standing Static: Normal Standing Dynamic: Fair Picking up an Object (QC): 4 (SBA) Treatment Pt performed skilled ambulation training, functional bed mobility, functional transfer training, education, and LE strengthening ex this date (standing heel raises, standing hip abduction, seated LAQ's 3sets 10reps) Assessment/Needs Pt had mod SOB after flight of stairs and with 150' walking. Pt is a fall risk with Tinneti balance assessment of 18. Pt has good sitting balance and static standing balance however balance deteriorates once patient is moving. Pt is very knowledgeable of condition and her limits and abilities and pushes herself to work for improvements. Rehab Potential: Fair PT Short Term Goals Short Term Goals Time Frame: Jun 17, 2019 Gait Distance Comment: 300' SBA Gait Assistive Device: FWW PT Penitentiary Goals City Planning Teacher Goals PT Penitentiary Goals Time Frame: Jul 01, 2019 Sit to Lying (QC): 6 Lying-Sitting on Side/Bed(QC): 6 Sit to Stand (QC): 6 Roll Left to Right (QC): 6 Chair/Lop-pl-Qvurf Xfer(QC): 6 Car Transfer (QC): 6 Distance: 500' Walk 10 feet (QC): 6 Walk 10ft-Uneven Surface(QC): 6 Walk 50ft with 2 Turns (QC): 6 Walk 150 ft (QC): 6 Gait Assistive Device: Walker 4 Wheeled Does the Pt use WC or Scooter?: No # of Steps: 12 (SBA) 1 Step (curb) (QC): 4 4 Steps (QC): 4 12 Steps (QC): 4 Picking up an Object (QC): 6 PT Plan Problem List Problem List: Activity Tolerance, Functional Strength, Safety, Balance, Gait, Transfer Treatment/Plan Treatment Plan: Continue Plan of Care Treatment Plan: Education, Functional Activity Mary Grace, Functional Strength, Group Therapy, Gait, Safety, Therapeutic Exercise, Transfers Frequency: At least 5 of 7 days/Wk (IRF) Estimated Hrs Per Day: 1.5 hours per day Patient and/or Family Agrees t: Yes Safety Risks/Education Patient Education: Gait Training, Transfer Techniques, Correct Positioning, Safety Issues Teaching Recipient: Patient Teaching Methods: Demonstration, Discussion Response to Teaching: Verbalize Understanding, Return Demonstration, Reinforcement Needed Discharge Recommendations Plan Pt will perform functional LE strengthening, transfer training, balance training, skilled ambulation training, endurance training, and education. Therapy Discharge Recommendati: Other, See Comments (Home with spouse) Equpiment Recommendations-D/C: Other, Please Explain (4 wheeled walker) Time/GCodes Time In: 1000 Time Out: 1100 Total Billed Treatment Time: 60 Total Billed Treatment 1 visit EVM 25' FA 35' SAAD SAINZ PT Jun 10, 2019 10:51
[2019-06-10] MEDS: CALCIUM CARB + VIT D 600 MG (CALCARB + D) TAB PO SCH ×3 (11:31→17:22)
[2019-06-10] MEDS: PYRIDOSTIGMINE 60 MG TAB (MESTINON) NON-FORMULARY PO SCH ×3 (11:31→20:33)
--- NOTE | 2019-06-10 11:51 | Progress Note ---
ADRYAN CARRILLO MED STUDENT 06/10/19 1151: Progress Note Barriers to discharge/return home: * Pneumonia has resolved, however she reports she remains SOB * Main concern for therapy is her endurance and SOB * Otherwise feels capable of going about her ADLs, has assistance from her at home. Looks forward to numerous family events next year. 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, continues to see [facility] for management * PE * L eye ptosis noted * On auscultation, heart RRR, lungs CTAB * Strength testing 5 for UE, LE * Patellar reflex present on L, not elicited on R * No deficits noted on exam of CN 7 * on testing of CN 3,4,6, noted L eye nystagmus when looking down and away BRENDA PHILLIPS DO 06/10/19 2118: Supervisory-Addendum Brief Verification & Attestation Participated in pt care: history, MDM, physical Personally performed: exam, history, MDM, supervision of care Care discussed with: Medical Student Procedures: n/a Results interpretation: Verified all documentation Verification and Attestation of Medical Student E/M Service A medical student performed and documented this service in my presence. I reviewed and verified all information documented by the medical student and made modifications to such information, when appropriate. I personally performed the physical exam and medical decision making. Brenda Phillips, Jun 10, 2019,21:18 ADRYAN CARRILLO MED STUDENT Jun 10, 2019 11:51 BRENDA PHILLISP DO Jun 10, 2019 21:18
--- NOTE | 2019-06-10 12:01 | ST Cognitive Linguistic Eval ---
Speech Evaluation-General Medical Diagnosis sepsis, pneumonia, myasthenia gravis Onset Date: Jun 03, 2019 Therapy Diagnosis Therapy Diagnosis: Cognitive-Communicaiton Medical History Pertinent Medical History: GERD Reviewed History: Yes Social History Current Living Status: Spouse Speech PLF-Current Status Prior Level of Function Patient lived at the home with her . She was independent for her daily needs. Subjective Patient was pleasant and cooperative with the cognitive assessment. Language Eval: Auditory Comprehends Simple Yes/No Ques: Functional Indent/Objects Multiple Abarca: Functional Ident/Pics in Multiple Abarca: Functional Follows 1-Step Commands: Functional Follows Complex Directions: Functional Follows General Conversations: Functional Language Eval: Verbal Language Completes Spontaneous Greeting: Functional Produces Auto, Serial Info: Functional Imitates Simple Words/Phrases: Functional Word Finding: Functional Requests Basic Needs: Functional States Basic Personal Info: Functional Expresses Complex Ideas: Functional Objective Cognitive Domain Attention: WNL Memory: Mild Problem Solving: Functional Executive Functions: WNL Visuospatial Skills: WNL Composite Severity Rating: WNL Clock Drawing Severity Rating: WNL Objective Formal/Standardized Tests [facility] Status ([facility]) Results 29/30, within normal range of function Oral Motor/Speech Production Within Normal Function Impression Patient is a pleasant 68 year old female who was admitted to the ARU for strengthening before returning home. Patient was given the UMS with a score of 29/30. With patient in the normal range of function she does not qualify for skilled ST at this time. Speech Patient Assess Expression of Ideas/Wants: Expression (4) Understanding Verbal Content: Understands (4) Brief Interview-Mental Status: Yes Repetition of Three Words: Three (3) Temporal Orientation: Year: Correct (3) Temporal Orientation: Month: Accurate within 5 days(2) Temporal Orientation: Day: Correct (1) Recall : Wear to say "Sock": Yes, no cue required (2) Recall : Color: Yes, no cue required (2) Recall : Bed: Yes, no cue required (2) Memory/Recall Ability: Current season, Location of own room, That he or she is in a hsp/hsp unit Speech-Plan Patient/Family Goals Patient/Family Goals: Patient plans on returning home with her upon discharge. Treatment Plan Speech Therapy Treatment Plan: Discontinue ST Patient does not require skilled ST at this time. Treatment Duration: Jun 10, 2019 Frequency: 1 time per week Estimated Hrs Per Day: .5 hour per day Rehab Potential: Good Barriers to Learning: None identified Pt/Family Agrees to Plan: Yes Safety Risks/Education Teaching Recipient: Patient Teaching Methods: Discussion Response to Teaching: Verbalize Understanding Education Topics Provided: Safety within her room Time Speech Therapy Time In: 11:45 Speech Therapy Time Out: 12:00 Total Billed Time: 15 Billed Treatment Time 1, SPSNDCOMP MATEUS Tierney Jun 10, 2019 12:01
--- NOTE | 2019-06-10 13:48 | NUR ---
RD ASSESSMENT PMHx: myasthenia gravis PT INTERACTION: Pt was awake and pleasant during rehab nutrition assessment. Pt states current appetite is good, and has been for sometime. Pt states some difficulty chewing food, as she can not wear her dentures at this time due to problems with her jaw. Pt states no issues with n/v/c at this time, though state some recent issues with diarrhea. Note last BM 06/10, per chart review. Pt states no recent wt changes. Note unable to determine recent wt hx, per chart review. ABNORMAL NUTRITION-RELATED LAB VALUES: No recent lab values available at this time. Est. kcal needs: 5318-5077 kcal (25-30 kcal/kg) Est. Pro needs: 67-78 g Pro (1.2-1.4 g Pro/kg) PES STATEMENT: Inadequate oral intake (NI-2.1) related to chewing/swallowing difficulty as evidenced by pt interview INTERVENTION: Continue with current diet order of Regular diet. Pt may benefit from nutrition supplementation, if PO intake declines. Will follow-up and reassess as needed. MONITOR/EVALUATE: PO Intake; Plan of Care; Hydration Status; Weight Status; Lab Values Pebbles Luz, MS, RD, LD Ext. 133
--- NOTE | 2019-06-10 15:03 | Physical Therapy Daily Note ---
PT Daily Note-Current Subjective Pt in chair crocheting pre-tx. Pt agrees to PT this afternoon. Appearance Pt in chair post-tx. Pt has call light, room phone, tray table and all needs met at this time. Mental Status Patient Orientation: Person, Place, Time, Situation Transfers SCALE: Activities may be completed with or without assistive devices. 8-Ddpydbzpxv-qzwawal completes the activity by him/herself with no assistance from a helper. 5-Set-up or Clean-up Assistance-helper sets up or cleans up; patient completes activity. [place] assists only prior to or following the activity. 4-Supervision or Touching Assistance-helper provides verbal cues and/or touching/steadying and/or contact guard assistance as patient completes activity. Assistance may be provided throughout the activity or intermittently. 3-Partial/Moderate Assistance-helper does LESS THAN HALF the effort. [place] li fts, holds or supports trunk or limbs, but provides less than half the effort. 2-Substantial/Maximal Assistance-helper does MORE THAN HALF the effort. [place] lifts or holds trunk or limbs and provides more than half the effort. 4-Pswmcfoqv-kqyyvr does ALL the effort. Patient does none of the effort to complete the activity. Or, the assistance of 2 or more helpers is required for the patient to complete the activity. If activity was not attempted, code reason: 7-Patient Refused. 9-Not Applicable-not attempted and the patient did not perform the activity before the current illness, exacerbation or injury. 10-Not Attempted due to Environmental Limitations-(lack of equipment, weather restraints, etc.). 88-Not Attempted due to Medical Conditions or Safety Concerns. Sit to Stand (QC): 5 Gait Training Distance: 75'x2 Walk 10 feet (QC): 6 Walk 50 ft with 2 Turns(QC): 4 (SBA) Gait Assistive Device: Walker 4 Wheeled Pt is more stable on her feet this afternoon during turns. Exercises Standing: Side steps (DB in // bars 10 times) NuStep Minutes: 15 NuStep Workload: 5 Assessment Current Status: Good Progress (Pt has decreased SOB this afternoon. Pt had difficulty coordinating side steps but no LOB.) PT Short Term Goals Short Term Goals Time Frame: Jun 17, 2019 Gait Distance Comment: 300' SBA Gait Assistive Device: FWW PT Coke Production Heater Goals Coke Production Heater Goals PT Coke Production Heater Goals Time Frame: Jul 01, 2019 Sit to Lying (QC): 6 Lying-Sitting on Side/Bed(QC): 6 Sit to Stand (QC): 6 Roll Left to Right (QC): 6 Chair/Wgg-ew-Iojqz Xfer(QC): 6 Car Transfer (QC): 6 Distance: 500' Walk 10 feet (QC): 6 Walk 10ft-Uneven Surface(QC): 6 Walk 50ft with 2 Turns (QC): 6 Walk 150 ft (QC): 6 Gait Assistive Device: Walker 4 Wheeled Does the Pt use WC or Scooter?: No # of Steps: 12 (SBA) 1 Step (curb) (QC): 4 4 Steps (QC): 4 12 Steps (QC): 4 Picking up an Object (QC): 6 PT Plan Problem List Problem List: Activity Tolerance, Functional Strength, Safety, Balance, Gait, Transfer Treatment/Plan Treatment Plan: Continue Plan of Care Treatment Plan: Education, Functional Activity Mary [place], Functional Strength, Group Therapy, Gait, Safety, Therapeutic Exercise, Transfers Frequency: At least 5 of 7 days/Wk (IRF) Estimated Hrs Per Day: 1.5 hours per day Patient and/or Family Agrees t: Yes Safety Risks/Education Patient Education: Gait Training, Transfer Techniques, Correct Positioning, Safety Issues Teaching Recipient: Patient Teaching Methods: Demonstration, Discussion Response to Teaching: Return Demonstration, Reinforcement Needed Time/GCodes Time In: 1405 Time Out: 1430 Total Billed Treatment Time: 25 Total Billed Treatment 1 visit FA 15' GT 10' ZAHRA WHITTAKER PT Jun 10, 2019 15:03
[2019-06-10 18:00] VITALS: BP 131/75
[2019-06-10] MEDS: ACETAMINOPHEN 500 MG TAB (TYLENOL) PO PRN (19:06)
[2019-06-10] MEDS: rOPINIRole 0.25 MG (REQUIP) TAB PO SCH (20:33)
[2019-06-10] MEDS: TEMAZEPAM 15 MG (RESTORIL) CAP PO PRN (20:33)
[2019-06-10] MEDS: SIMvastatin 10 MG (ZOCOR) TAB PO SCH (20:33)
[2019-06-11] MEDS: ACETAMINOPHEN 500 MG TAB (TYLENOL) PO PRN ×2 (00:53→05:26)
[2019-06-11 05:31] VITALS: BP 119/68
[2019-06-11 06:00] LABS: BASOPHILS # (AUTO) 0.2 10^3/uL (0.0-0.1); BASOPHILS % (AUTO) 2 % (0-10); EOSINOPHILS # (AUTO) 0.2 10^3/uL (0.0-0.3); EOSINOPHILS % (AUTO) 3 % (0-10); HEMATOCRIT 34 % (35-52); HEMOGLOBIN 10.8 G/DL (11.5-16.0); LYMPHOCYTES # (AUTO) 2.7 X 10^3 (1.0-4.0); LYMPHOCYTES % (AUTO) 37 % (12-44); MEAN CORPUSCULAR HEMOGLOBIN 32 PG (25-34); MEAN CORPUSCULAR HGB CONC 32 G/DL (32-36); MEAN CORPUSCULAR VOLUME 99 FL (80-99); MEAN PLATELET VOLUME 12.1 FL (7.4-10.4); MONOCYTES # (AUTO) 1.2 X 10^3 (0.0-1.0); MONOCYTES % (AUTO) 16 % (0-12); NEUTROPHILS # (AUTO) 3.1 X 10^3 (1.8-7.8); NEUTROPHILS % (AUTO) 42 % (42-75); PLATELET COUNT 465 10^3/uL (130-400); RED CELL DISTRIBUTION WIDTH 16.8 % (10.0-14.5); WHITE BLOOD COUNT 7.3 10^3/uL (4.3-11.0)
[2019-06-11] MEDS: CYANOCOBALAMIN 1,000 MCG (VITAMIN B-12) TABLET PO SCH (06:24)
[2019-06-11] MEDS: FERROUS SULF 325 MG (IRON) TAB PO SCH (06:24)
[2019-06-11] MEDS: LIPASE/AMYLASE/PROTEASE (PANCRELIPASE) 5,000 UNITS CAP PO SCH ×3 (06:24→17:26)
[2019-06-11] MEDS: MULTIVIT W/MINERALS TAB (THERAGRAN M) PO SCH (06:24)
[2019-06-11 06:25] LABS: ALANINE AMINOTRANSFERASE 23 U/L (0-55); ALBUMIN 3.9 GM/DL (3.2-4.5); ALKALINE PHOSPHATASE 75 U/L (40-136); BILIRUBIN,TOTAL 0.3 MG/DL (0.1-1.0); BUN/CREATININE RATIO 25; CALCIUM 7.9 MG/DL (8.5-10.1); CARBON DIOXIDE 26 MMOL/L (21-32); CHLORIDE 108 MMOL/L (98-107); CREATININE SERUM 0.67 MG/DL (0.60-1.30); GFR ESTIMATED > 60; GLUCOSE 98 MG/DL (70-105); POTASSIUM 3.8 MMOL/L (3.6-5.0); SODIUM 141 MMOL/L (135-145); TOTAL PROTEIN 5.7 GM/DL (6.4-8.2)
[2019-06-11] MEDS: predniSONE 20 MG TAB PO SCH (06:25)
[2019-06-11] MEDS: CALCIUM CARB + VIT D 600 MG (CALCARB + D) TAB PO SCH ×3 (06:25→17:26)
[2019-06-11] MEDS ORDERED: PATIENT MAY USE OWN MEDS, ALL MC SCH (07:45)
[2019-06-11] MEDS: SENNA W/DOCUSATE (SENOKOT S) TABLET PO SCH ×2 (09:00→21:52)
--- NOTE | 2019-06-11 09:05 | PM&R Progress Note ---
Subjective HPI/CC On Admission Date Seen by Provider: Jun 11, 2019 Time Seen by Provider: 09:[address] Carbone CC: Severe debility with MyastheniaGravis HPI: This is a pt who is being transferredfrom Med after and ICU cour sefollowing klebsiella pneumoniaseptic shock, completed Meropenem and. extubated doing very well. 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 J Tube maintained for nutrition support and that did get replaced prior to transfer from since a piece had broken off when she was getting into the car to come to rehab She has been to rehab in the past and she usually runs low on minerals and B12 due to gastric bypass before. Her Hgb remains stable at 11.9 and her phosphorus was low but it was 2.4 today and creatinine remains normal at 0.6 She remains on Prednisone 40mg since she is tolerating her diet well.PLOF is use of walker at home and mostly independent with ADL's. Elliot Gutiérrez, MSIII: Barriers to discharge/return home: * Pneumonia has resolved, however she reports she remains SOB * Main concern for therapy is her endurance and SOB * Otherwise feels capable of going about her ADLs, has assistance from her at home. Looks forward to numerous family events next year. 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, continues to see for management * PE * L eye ptosis noted * On auscultation, heart RRR, lungs CTAB * Strength testing 5 for UE, LE * Patellar reflex present on L, not elicited on R * No deficits noted on exam of CN 7 * on testing of CN 3,4,6, noted L eye nystagmus when looking down and away Subjective/Events-last exam Patient having a migraine so Excedrin Migraine will be started that she takes at home Labs reviewed all within normal limits Tube feeding tolerated at night Overall slow progress but our goal is to get her back to her baseline No pain otherwise Checked meds and labs Conferred with senior engineering team leader therapy notes Review of Systems General: Fatigue, Other (headache) Musculoskeletal: neck pain Objective Exam Vital Signs Vital Signs Date Time Temp Pulse Resp B/P (MAP) Pulse Ox O2 Delivery O2 Flow Rate FiO2 06/11/19 05:31 36.8 75 18 119/68 (85) 94 Room Air Capillary Refill : General Appearance: No Apparent Distress, WD/WN, Chronically ill, Cachetic, Thin HEENT: PERRL/EOMI, Normal ENT Inspection, Pharynx Normal, Moist Mucous Membranes Neck: Full Range of Motion, Normal Inspection, Non Tender, Supple Respiratory: Chest Non Tender, Lungs Clear, Normal Breath Sounds, No Accessory Muscle Use, No Respiratory Distress Cardiovascular: Regular Rate, Rhythm, No Edema, No Gallop, No JVD, No Murmur Gastrointestinal: Normal Bowel Sounds, No Organomegaly, No Pulsatile Mass, Non Tender, Soft Back: Normal Inspection, No CVA Tenderness, No Vertebral Tenderness Extremity: Normal Capillary Refill, Normal Inspection, Normal Range of Motion, Non Tender, No Calf Tenderness, No Pedal Edema Neurologic/Psychiatric: Alert, Oriented x3, No Motor/Sensory Deficits, Normal Mood/Affect, tipple oiler II-XII Norm as Tested, Motor Weakness (generalized all extremities) Skin: Normal Color, Warm/Dry Lymphatic: No Adenopathy Results/Procedures Lab Laboratory Tests 06/11/19 05:30 Patient resulted labs reviewed. FIM Transfers Therapy Code Descriptions/Definitions Functional [place] Measure: 0=Not Assessed/NA 4=Minimal Assistance 1=Total Assistance 5=Supervision or Setup 2=Maximal Assistance 6=Modified [place] 3=Moderate Assistance 7=Complete IndependenceSCALE: Activities may be completed with or without assistive devices. 3-Vrbopmugab-cyimtja completes the activity by him/herself with no assistance from a helper. 5-Set-up or Clean-up Assistance-helper sets up or cleans up; patient completes activity. [place] assists only prior to or following the activity. 4-Supervision or Touching Assistance-helper provides verbal cues and/or touching/steadying and/or contact guard assistance as patient completes activity. Assistance may be provided throughout the activity or intermittently. 3-Partial/Moderate Assistance-helper does LESS THAN HALF the effort. [place] lifts, holds or supports trunk or limbs, but provides less than half the effort. 2-Substantial/Maximal Assistance-helper does MORE THAN HALF the effort. [place] l ifts or holds trunk or limbs and provides more than half the effort. 9-Sqjnotfdd-zowwll does ALL the effort. Patient does none of the effort to complete the activity. Or, the assistance of 2 or more helpers is required for the patient to complete the activity. If activity was not attempted, code reason: 7-Patient Refused. 9-Not Applicable-not attempted and the patient did not perform the activity before the current illness, exacerbation or injury. 10-Not Attempted due to Environmental Limitations-(lack of equipment, weather restraints, etc.). 88-Not Attempted due to Medical Conditions or Safety Concerns. Roll Left to Right (QC): 6 Sit to Lying (QC): 6 Sit to Stand (QC): 5 Chair/Vvs-oi-Cbxob Xfer(QC): 4 (SBA. Pt tries to reach without coming to a full stand.) Car Transfer (QC): 6 Gait Training Does the Patient Walk?: Yes Distance (FIM): 3=150 ft Distance: 75'x2 Walk 10 feet (QC): 6 Walk 50 ft with 2 Turns(QC): 4 (SBA) Walk 150 ft (QC): 6 Walking 10ft/uneven surface-QC: 4 (SBA) Gait Assistive Device: Walker 4 Wheeled Wheelchair Training Does the Pt Use a Wheelchair?: No Stair Training 1 Step (curb) (QC): 4 (CGA. Pt uses 4 wheeeled walker and picks up to put over step.) 4 Steps (QC): 4 (SBA) 12 Steps (QC): 4 (SBA) Balance Picking up an Object (QC): 4 (SBA) ADL-Treatment Eating (QC): 6 Oral Hygiene (QC): 6 (managed packaging, brushed mouth with sponge) Shower/Bathe Self (QC): 5 (SUP) Upper Body Dressing (QC): 5 (SUP) Lower Body Dressing (QC): 5 (SUP) On/Off Footwear (QC): 6 (Completes while sitting) Toileting Hygiene (QC): 6 (Completes with thoroughness) Toilet Transfer (QC): 5 (SBA ) Assessment/Plan Assessment and Plan Assess & Plan/Chief Complaint Assessment: MG s/p vent dependency s/p Klebsiella pneumoniae Osteonecrosis of the jaw hx Gastric bypass hx Vitamin deficiency Chronic diarrhea Malabsorption Acute migraine Plan: Home meds IRF protocol Checked meds Migraine treatment (1) Myasthenia gravis Status: Acute (2) S/P gastric bypass (3) Malnutrition (4) B12 deficiency (5) History of ventilator dependency (6) Klebsiella pneumonia (7) Osteonecrosis of jaw (8) Gastrointestinal tube present Status: Acute JESSE PHILLIPS DO Jun 11, 2019 09:05
--- NOTE | 2019-06-11 09:05 | Individualized Plan of Care ---
Individualized Plan of Care Rehab Nursing IPOC Order Admission Date Jun 09, 2019 at 21:01 Current Orders Orders Admission Order(Inpt,Obs,Sdc) (06/09/19 10:21) Vital Signs: Per Unit Policy ( 08,16,00 (06/09/19 10:21) Taxation Accountant-Inpt Rehab Con (06/09/19 10:21) Rehab Nursing Orders-Ipoc (06/09/19 10:21) Physical Therapy Rehab Orders (06/09/19 10:21) Occupational Therapy Rehab Ord (06/09/19 10:21) Speech Therapy Rehab Orders (06/09/19 10:21) General/Regular (06/09/19 Dinner) Intake & Output 06,14,22 (06/09/19 10:21) Precautions (Aru) (06/09/19 10:21) Weekly Weight WEEK (06/09/19 10:21) Rehab-Intensity Of Therapy (06/09/19 10:21) Initiate Admission Nursing Pro .admission (06/09/19 10:21) Initiate Admission Nursing Pro .admission (06/09/19 10:21) Acetaminophen Tablet (Tylenol Tablet) (06/09/19 10:30) Calcium Carbonate Chew Tablet (Antacid C (06/09/19 10:30) Docusate Sodium Capsule (Colace Capsule) (06/09/19 10:30) Loperamide Tablet (Imodium Tablet) (06/09/19 10:30) Melatonin Tablet (Melatonin Tablet) (06/09/19 10:30) Ondansetron Oral Dissolve Tab (Zofran (06/09/19 10:30) Senna S Tablet (Senokot S Tablet) (06/09/19 21:00) Ropinirole Tablet (Requip Tablet) (06/09/19 21:00) Sequential Compression Device Q4H (06/10/19 08:00) Dvt/Vte Risk - Notifiy Physici Q4H (06/10/19 08:00) Request Ot Evaluate & Treat (06/10/19 07:00) Speech Therapy Rehab Orders (06/10/19 07:00) Follow-Up Appointment D/C (06/10/19 08:00) Follow-Up Appointment D/C (06/10/19 08:00) Follow-Up Appointment D/C (06/10/19 08:00) Follow-Up Appointment D/C (06/10/19 08:00) General/Regular (06/10/19 Breakfast) Activity As Ordered UD (06/10/19 08:00) Prednisone Tablet (Deltasone Tablet) (06/10/19 07:00) Gabapentin Capsule/Tablet (Neurontin Cap (06/10/19 09:00) Carvedilol Tablet (Coreg Tablet) (06/10/19 09:00) Cholecalciferol Capsule/Tablet (Vitamin (06/10/19 09:00) Cyanocobalamin Tablet (Vitamin B-12 Tabl (06/10/19 07:00) Doxycycline Hyclate Tablet (Vibramycin T (06/10/19 09:00) Duloxetine Capsule (Cymbalta Capsule) (06/10/19 09:00) Ergocalciferol Capsule (Vitamin D2 Capsu (06/10/19 09:00) Ferrous Sulfate Tablet (Feosol Tablet) (06/10/19 07:00) Meloxicam Tablet (Mobic Tablet) (06/10/19 09:00) Therapeutic Multivitamin Tab (Vitamins, (06/10/19 07:00) Lipase/Amylase/Protease Caps (Pancrelipa (06/10/19 07:00) Lipase/Amylase/Protease Caps (Pancrelipa (06/10/19 08:00) Pyridoxine Tablet (Vitamin B-6 Tablet) (06/10/19 09:00) Temazepam Capsule (Restoril Capsule) (06/10/19 01:15) Influenza Quad (5+Yoa) 2019-20 (Afluria (06/10/19 07:15) Pyridostigmine (Non-Formulary) (Mestinon (06/10/19 09:00) Spironolactone Tablet (Aldactone Tablet) (06/10/19 09:00) Calcium Carbonate W/Vitamin D3 (Calcarb (06/10/19 09:00) Pantoprazole Tablet (Protonix Tablet) (06/10/19 09:00) Simvastatin Tablet (Zocor Tablet) (06/10/19 21:00) Patient Visit (06/10/19 ) Speech Sound Lang Comp (06/10/19 ) Patient Visit (06/10/19 ) Pt Eval Moderate Complexity (06/10/19 ) Functional Activities, Ea 15 (06/10/19 ) Patient Visit (06/10/19 ) Functional Activities, Ea 15 (06/10/19 ) Gait Training, Ea 15 Min (06/10/19 ) Cbc With Automated Diff (06/11/19 06:00) Comprehensive Metabolic Panel (06/11/19 06:00) Patient May Use Own Meds, All (Patient M (06/11/19 07:45) (Nf) Biotin (06/11/19 07:49) Pyridostigmine (Non-Formulary) (Mestinon (06/11/19 09:00) Apap/Asa/Caff (Non-Formulary) (Excedrin (06/11/19 10:15) Rehab Nursing Orders: Ongoing Assess. of Cognitive Status, Ongoing Assess. of Function Status, Bladder Scan, Bladder Training, Bowel Management, Bowel Training, Disease Management & Educaiton, DVT Prophylaxis, Fall Prevention, Fluid/Electrolyte/Nutrition Mgmt, Infection Prevention, Medication Management & Education, Management of Risks & Complications, Nutrition Management, Pain Management, Patient/Family Support, Safety Management Intensity of Therapy to be met Patient to be seen: Min.3h per day/5 of 7d PT IPOC Problem List: Activity Tolerance, Functional Strength, Safety, Balance, Gait, Transfer Treatment Plan: Continue Plan of Care Education, Functional Activity [place], Functional Strength, Group Therapy, Gait, Safety, Therapeutic Exercise, Transfers Treatment Duration: Jun 10, 2019 Frequency: At least 5 of 7 days/Wk (IRF) Estimated Hrs Per Day: 1.5 hours per day OT IPOC Problems: Decreased Activ Tolerance, Decreased UE Strength, Impaired I ADL's, Impaired Self-Care Skills, Restricted Funct UE ROM OT Treatment, Training and Edu: Yes Plan of Care: ADL Retraining, Functional Mobility, Group Exercise/Act as Ind, UE Funct Exercise/Act Treatment Duration: Jun 24, 2019 Frequency: At least 5 of 7 days/Wk (IRF) Estimated Hrs Per Day: 1.[address] IPOC Speech Therapy Treatment Plan: Discontinue ST Treatment Duration: Jun 10, 2019 Frequency: 1 time per week Estimated Hrs Per Day: .5 hour per day Taxation Accountant/Case Mgmt Taxation Accountant/Case Managemen: Discharge Planning Dietitian/Roof Foreman Dietitian/Roof Foreman to monitor nutritional status and make changes and/or recommendations as needed and work with speech pathology on dietary upgrades as the occur. Physician IPOC Medical Issues being managed closely and that require the 24 hour availability of a physician: Recent intubation for 1 week for respiratory failure from Klebsiella pneumoniae and septic shock with myasthenia gravis will need close monitoring for d ecompensation Medical Issues: Bowel/Bladder Function, DVT Prophylaxis, Falls Precautions, Fluid/Electrolyte/Nutrition Balance, Infection Protection, Pain Management Brief Synthesis of Preadmission Screen, Post-Admission Evaluation, and Therapy Evaluations: PT will focus on ambulation and use of walker with fall prevention OT we'll focus on increasing independence with ADLs Medical Prognosis: Good Anticipated Length of Stay: 7 days JESSE PHILLIPS DO Jun 11, 2019 09:05
--- NOTE | 2019-06-11 09:30 | NUR ---
Patient is complaining of Migraine headache this morning. Patient states she takes Excedrin Migraine at home. Order obtained from Dr. Pearson for Excedrin. Patient asks to wait to take morning pills until she Excedrin is back from being labeled at Pharmacy, so that she can take all medications at the same time. Dark room maintained and cool wash cloth offered.
--- NOTE | 2019-06-11 09:51 | Physical Therapy Daily Note ---
PT Daily Note-Current Subjective Pt in bed curled up on left side with eyes closed pre-tx. Pt reports she has a migraine this morning and her head feels like it is "being smashed by chains". RN is aware. Pt refuses getting out of bed but agrees to bed exercises this morning. Appearance Pt in bed post-tx. Pt with call light, room phone, tray table in reach and all needs met at this time. RN in room at this time. Mental Status Patient Orientation: Person, Unable to Assess, Situation Transfers SCALE: Activities may be completed with or without assistive devices. 2-Yocxwkhzqk-bltglhu completes the activity by him/herself with no assistance f rom a helper. 5-Set-up or Clean-up Assistance-helper sets up or cleans up; patient completes activity. [place] assists only prior to or following the activity. 4-Supervision or Touching Assistance-helper provides verbal cues and/or touching/steadying and/or contact guard assistance as patient completes activity. Assistance may be provided throughout the activity or intermittently. 3-Partial/Moderate Assistance-helper does LESS THAN HALF the effort. [place] lifts, holds or supports trunk or limbs, but provides less than half the effort. 2-Substantial/Maximal Assistance-helper does MORE THAN HALF the effort. [place] lifts or holds trunk or limbs and provides more than half the effort. 9-Zjrvxencc-rkbwmf does ALL the effort. Patient does none of the effort to complete the activity. Or, the assistance of 2 or more helpers is required for the patient to complete the activity. If activity was not attempted, code reason: 7-Patient Refused. 9-Not Applicable-not attempted and the patient did not perform the activity before the current illness, exacerbation or injury. 10-Not Attempted due to Environmental Limitations-(lack of equipment, weather restraints, etc.). 88-Not Attempted due to Medical Conditions or Safety Concerns. Roll Left to Right (QC): 6 Pt indep scoots up in bed and readjusts for comfort. Exercises Supine Ex: Ankle pumps, Glut sets, Heel Slides, Short Arc Quads, Straight leg raise, Hip abd/add Supine Reps: 30 (2sets 15reps) Treatments Pt performed bed mobility and LE exercises this date. Assessment Current Status: Poor Progress Pt was able to do LE exercises in bed this morning. Session was limited by pt's head pain and pt reports she can't continue with exercises this morning as pain is worsening. Pt moves very slow through exercises. PT Short Term Goals Short Term Goals Time Frame: Jun 17, 2019 Gait Distance Comment: 300' SBA Gait Assistive Device: FWW PT Mcc Goals Bingo Caller Goals PT Bingo Caller Goals Time Frame: Jul 01, 2019 Sit to Lying (QC): 6 Lying-Sitting on Side/Bed(QC): 6 Sit to Stand (QC): 6 Roll Left to Right (QC): 6 Chair/Vxi-gj-Viqpy Xfer(QC): 6 Car Transfer (QC): 6 Distance: 500' Walk 10 feet (QC): 6 Walk 10ft-Uneven Surface(QC): 6 Walk 50ft with 2 Turns (QC): 6 Walk 150 ft (QC): 6 Gait Assistive Device: Walker 4 Wheeled Does the Pt use WC or Scooter?: No # of Steps: 12 (SBA) 1 Step (curb) (QC): 4 4 Steps (QC): 4 12 Steps (QC): 4 Picking up an Object (QC): 6 PT Plan Problem List Problem List: Activity Tolerance, Functional Strength, Safety, Balance, Gait, Transfer Treatment/Plan Treatment Plan: Continue Plan of Care Treatment Plan: Education, Functional Activity [place], Functional Strength, Group Therapy, Gait, Safety, Therapeutic Exercise, Transfers Frequency: At least 5 of 7 days/Wk (IRF) Estimated Hrs Per Day: 1.5 hours per day Patient and/or Family Agrees t: Yes Safety Risks/Education Patient Education: Correct Positioning, Safety Issues Teaching Recipient: Patient Teaching Methods: Demonstration, Discussion Response to Teaching: Reinforcement Needed Time/GCodes Time In: 900 Time Out: 950 Total Billed Treatment Time: 50 Total Billed Treatment 1 visit EX 50' SAAD SAINZ PT Jun 11, 2019 09:51
--- NOTE | 2019-06-11 10:08 | NUR ---
Call Placed to Dr. Marinelli's office, Neuro Physician, regarding clarification of patient's IVIg injections for her Myasthenia Gravis treatment. Message left with Nurse, awaiting call back.
[2019-06-11] MEDS: GABAPENTIN 300 MG (NEURONTIN) CAP PO SCH ×4 (10:29→21:53)
[2019-06-11] MEDS: EXCEDRIN MIGRAINE PO PRN (10:29)
[2019-06-11] MEDS: PYRIDOXINE (VITAMIN B-6) 50 MG TABLET PO SCH (10:30)
[2019-06-11] MEDS: DULoxetine 30 MG (CYMBALTA) CAP PO SCH (10:30)
[2019-06-11] MEDS: SPIRONOLACTONE 25 MG (ALDACTONE) TAB PO SCH (10:30)
[2019-06-11] MEDS: MELOXICAM 7.5 MG (MOBIC) TABLET PO SCH (10:31)
[2019-06-11] MEDS: VITAMIN D3 5,000 UNITS (CHOLECALCIFEROL ) CAPSULE PO SCH (10:31)
[2019-06-11] MEDS: CARVEDILOL 3.125 MG (COREG) TABLET PO SCH ×2 (10:31→21:53)
[2019-06-11] MEDS: PANTOPRAZOLE 40 MG (PROTONIX) TAB PO SCH (10:31)
[2019-06-11] MEDS: BIOTIN 10000 MCG PO SCH (10:32)
[2019-06-11] MEDS: PYRIDOSTIGMINE 60 MG TAB (MESTINON) NON-FORMULARY PO SCH ×3 (10:32→21:54)
--- NOTE | 2019-06-11 10:48 | Occupational Ther Daily Note ---
OT Current Status-Daily Note Subjective Pt seen supine in bed, neck pillow wrapped around eyes. Pt responds with vocalization, softly and inaudibly. Pt states she has a migraine and that she requires medication for it to subside. Pt states no other pain currently. Pt reluctantly agreeable to OT tx session. Mental Status/Objective Patient Orientation: Normal For Age ADL-Treatment Therapy Code Descriptions/Definitions Functional [place] Measure: 0=Not Assessed/NA 4=Minimal Assistance 1=Total Assistance 5=Supervision or Setup 2=Maximal Assistance 6=Modified [place] 3=Moderate Assistance 7=Complete IndependenceSCALE: Activities may be completed with or without assistive devices. 7-Sgcmxybkzr-erqggpj completes the activity by him/herself with no assistance from a helper. 5-Set-up or Clean-up Assistance-helper sets up or cleans up; patient completes activity. [place] assists only prior to or following the activity. 4-Supervision or Touching Assistance-helper provides verbal cues and/or touching/steadying and/or contact guard assistance as patient completes activity. Assistance may be provided throughout the activity or intermittently. 3-Partial/Moderate Assistance-helper does LESS THAN HALF the effort. [place] lifts, holds or supports trunk or limbs, but provides less than half the effort. 2-Substantial/Maximal Assistance-helper does MORE THAN HALF the effort. [place] lifts or holds trunk or limbs and provides more than half the effort. 4-Cdlueurfe-hwhfxf does ALL the effort. Patient does none of the effort to complete the activity. Or, the assistance of 2 or more helpers is required for the patient to complete the activity. If activity was not attempted, code reason: 7-Patient Refused. 9-Not Applicable-not attempted and the patient did not perform the activity before the current illness, exacerbation or injury. 10-Not Attempted due to Environmental Limitations-(lack of equipment, weather restraints, etc.). 88-Not Attempted due to Medical Conditions or Safety Concerns. Eating (QC): 6 (Pt completes eating while seated in bed. Pt states she had diff iculties eating prior to hospitalization, but has been doing well since. Pt completes with good motor control, completes with increased time.) Toileting Hygiene (QC): 5 (SUP) Toilet Transfer (QC): 5 (SBA utilizing FWW into bathroom, SBA from FWW to commode) Other Treatment Pt states migraine, lights dimmed to comfort. Pt agreeable to session, stating she requires use of restroom. Pt sits in bed to eat, refuses chair due to it "hurting tailbone" previous day. Modified seating offered for comfort in recliner chair, pt denies and returns to bed with HOB elevated to ~90* for seated eating position. Pt completes eating in bed; pt states she was not anxious previous night and slept well. Pt states she utilized deep breathing techniques and stress management previous day to relieve anxiety. Pt holds head in neutral throughout session, only ~3 instances of neck flexion. Pt completes UE theraband exercises in bed, completes 10 reps of each exercise- external rotations, diagonals. Pt completes back flies and forward flexion without theraband. Pt utilized stress ball within BUE to squeeze, completing diaphragmatic breathing throughout 10x. Pt educated on PT scheduled next and group therapy purpose. Pt acknowledges understanding, left with HOB raised, in bed, call light in reach, all needs met. Education OT Patient Education: Correct positioning, Exercise program, Home exercise program, Purpose of tx/functional activities, Rehab process, Safety issues Teaching Recipient: Patient Teaching Methods: Demonstration, Discussion Response to Teaching: Verbalize Understanding, Return Demonstration, Reinforcement Needed OT Short Term Goals Short Term Goals Eating(FIM): 7 Grooming(FIM): 7 Upper Body Dressing(FIM): 6 Lower Body Dressing(FIM): 6 Toilet/Commode Transfer(FIM): 6 Additional Short Term Goals: 1-Demonstrate ADL Tasks, 2-Verbalize Under standing, 3-ImproveStrength/[place] 1=Demonstrate adherence to instructed precautions during ADL tasks. 2=Patient will verbalize/demonstrate understanding of assistive devices/modifications for ADL. 3=Patient will improve strength/tolerance for activity to enable patient to perform ADL's. OT Penitentiary Goals Penitentiary Goals Eating (QC): 6 Oral Hygiene (QC): 6 Shower/Bathe Self (QC): 6 Upper Body Dressing (QC): 6 Lower Body Dressing (QC): 6 On/Off Footwear (QC): 6 Toileting Hygiene (QC): 6 Toilet/Commode Transfer (QC): 6 Additional Goals: 1-Demonstrate ADL Tasks, 2-Verbalize Understanding, 3- ImproveStrength/[place] 1=Demonstrate adherence to instructed precautions during ADL tasks. 2=Patient will verbalize/demonstrate understanding of assistive devices/modifications for ADL. 3=Patient will improve strength/tolerance for activity to enable patient to perform ADL's. OT Education/Plan Problem List/Assessment Assessment: Decreased Activ Tolerance, Decreased UE Strength, Impaired Funct Balance, Impaired I ADL's, Impaired Self-Care Skills, Restricted Funct UE ROM Discharge Recommendations Plan/Recommendations: Continue POC Treatment Plan/Plan of Care Treatment,Training & Education: Yes Patient would benefit from OT for education, treatment and training to promote independence in ADL's, mobility, safety and/or upper extremity function for ADL's. Plan of Care: ADL Retraining, Functional Mobility, Group Exercise/Act as Ind, U E Funct Exercise/Act Treatment Duration: Jun 24, 2019 Frequency: At least 5 of 7 days/Wk (IRF) Estimated Hrs Per Day: 1.5 hours per day Agreement: Yes Rehab Potential: Good Time/GCodes Start Time: 08:00 Stop Time: 09:00 Total Time Billed (hr/min): 60 Billed Treatment Time 1 ADL 2(30), EX 2 (30)= 60 RAMIRO MAYS OTR Jun 11, 2019 10:48
[2019-06-11] MEDS ORDERED: TRAM50TA2 PO (10:55)
--- NOTE | 2019-06-11 13:03 | NUR ---
Call back received from Neurology. Patient is to restart her 25g of Hizentra 20% subcutaneously as soon as possible. Dr. Pearson notified, orders entered. Addendum: 06/11/19 at 1340 by OMARI RAO RN Patient's will be bringing medication from home.
--- NOTE | 2019-06-11 14:29 | Therapy Group Daily Note ---
Therapy Daily Group Note Patient Education Topic Other List Below (ambulation, ARU description/expectations) Exercises LE Seated Exercise, UE Exercise Session Ratio (pt:therapist): 4:1 Goal of Session: Education on ARU Expectations, UE/LE Strengthing Goal Met for this Session: Yes Pt Benefit of Group: Contributions to Others, Increased Functional Strength, Improved Cognition, Recognition of Peers, Socialization, Other Other/Notes Pt ambulated using FWW to [facility] for OT/PT group. Group consisted of introductions (name, place living, telling a joke), socialization, UE/LE seated exercises, education of ARU description/expectations and walking safely utilizing AE. Pt's food came late so pt was able to eat during group time and participate fully. Pt introduced self appropriately and actively listened to peers. Pt demonstrated understanding of educational topics by asking questions or giving personal observations and stories. Pt was able to tolerate UE/LE seated exercises. After therapy, pt lying in bed with call light/phone in reach. All needs met in room. Start Time: 13:00 Stop Time: 14:15 Total Billed Treatment Time: 75 Total Billed Treatment 1-GRP ZAHRA LEDEZMA Jun 11, 2019 14:29
--- NOTE | 2019-06-11 15:37 | NUR ---
Met with patient to complete initial assessment. Patient admitted to the ARU, 06/09 with Myasthenia Gravis. Prior to hospitalization the patient was reportedly independent with ADLs and functionally mobile without an AD. She was working part-time at [employer], and driving. Patient identifies her , Wade as her primary contact. Wade can be reached at . Patient confirms her primary insurance provider is [facility], with supplemental coverage provided by [employer]. Patient's preferred pharmacy is [facility] [place], [place]. The purpose of weekly Team Conference discussed, patient agreeable with no concerns. Will continue to follow for discharge planning.
[2019-06-11 18:16] VITALS: BP 119/67
--- NOTE | 2019-06-11 19:28 | NUR ---
bedside report received from OMARI SANTIAGO, assume care of pt
[2019-06-11] MEDS ORDERED: NON-FORMULARY MEDICATION 1 EA EA INJ SCH (20:00)
[2019-06-11] MEDS: SIMvastatin 10 MG (ZOCOR) TAB PO SCH (21:52)
[2019-06-11] MEDS: rOPINIRole 0.25 MG (REQUIP) TAB PO SCH (21:52)
--- NOTE | 2019-06-11 22:00 | NUR ---
tube feeding iso source 1.5 at 80ml/hr, j-tube dressing changed had grayish colored drainage on dressing
--- NOTE | 2019-06-12 04:15 | NUR ---
tube feeding completed, j-tube flushed by pt
[2019-06-12 05:35] VITALS: BP 129/65
[2019-06-12] MEDS: FERROUS SULF 325 MG (IRON) TAB PO SCH (06:38)
[2019-06-12] MEDS: CALCIUM CARB + VIT D 600 MG (CALCARB + D) TAB PO SCH ×3 (06:39→18:40)
[2019-06-12] MEDS: LIPASE/AMYLASE/PROTEASE (PANCRELIPASE) 5,000 UNITS CAP PO SCH ×3 (06:40→18:40)
[2019-06-12] MEDS: MULTIVIT W/MINERALS TAB (THERAGRAN M) PO SCH (06:40)
[2019-06-12] MEDS: CYANOCOBALAMIN 1,000 MCG (VITAMIN B-12) TABLET PO SCH (06:41)
[2019-06-12] MEDS: predniSONE 20 MG TAB PO SCH (06:43)
[2019-06-12] MEDS: BIOTIN 10000 MCG PO SCH (06:43)
--- NOTE | 2019-06-12 07:16 | NUR ---
bedside report given to RIZWAN SANTIAGO
--- NOTE | 2019-06-12 07:29 | Occupational Ther Daily Note ---
OT Current Status-Daily Note Subjective Pt seen reclined in bed, breakfast being eaten. Pt states no pain, just "stiffness" in anterior and posterior neck. Pt agreeable to OT tx session. Mental Status/Objective Patient Orientation: Normal For Age ADL-Treatment Therapy Code Descriptions/Definitions Functional [place] Measure: 0=Not Assessed/NA 4=Minimal Assistance 1=Total Assistance 5=Supervision or Setup 2=Maximal Assistance 6=Modified [place] 3=Moderate Assistance 7=Complete IndependenceSCALE: Activities may be completed with or without assistive devices. 3-Kuzuykkcuv-vqjslsx completes the activity by him/herself with no assistance from a helper. 5-Set-up or Clean-up Assistance-helper sets up or cleans up; patient completes activity. [place] assists only prior to or following the activity. 4-Supervision or Touching Assistance-helper provides verbal cues and/or touching/steadying and/or contact guard assistance as patient completes activity. Assistance may be provided throughout the activity or intermittently. 3-Partial/Moderate Assistance-helper does LESS THAN HALF the effort. [place] lifts, holds or supports trunk or limbs, but provides less than half the effort. 2-Substantial/Maximal Assistance-helper does MORE THAN HALF the effort. [place] lifts or holds trunk or limbs and provides more than half the effort. 0-Gogzdyfxo-maxhrj does ALL the effort. Patient does none of the effort to complete the activity. Or, the assistance of 2 or more helpers is required for the patient to complete the activity. If activity was not attempted, code reason: 7-Patient Refused. 9-Not Applicable-not attempted and the patient did not perform the activity before the current illness, exacerbation or injury. 10-Not Attempted due to Environmental Limitations-(lack of equipment, weather restraints, etc.). 88-Not Attempted due to Medical Conditions or Safety Concerns. Eating (QC): 6 (Completes reclined in bed, no dentation.) Oral Hygiene (QC): 5 (Pt rinses mouth with SBA at sink) Shower/Bathe Self (QC): 5 (SBA for shower transfer onto shower chairPt completes with SUP, able to wash all areas.) Upper Body Dressing (QC): 6 Lower Body Dressing (QC): 5 (SBA in stance during pull up) Toileting Hygiene (QC): 6 (completes thoroughly after BM) Toilet Transfer (QC): 5 (SUP with FWW to toilet) Other Treatment Pt completes eating in bed; pt states she did not sleep well last night due to mind racing. Pt completes UE stretching to encourage warm-up and increased ROM of R shoulder. Pt bed mob with SUP, sit to stand with FWW with SBA. Pt completes ADLs in room. Pt transfers clothes with FWW to laundry room to complete laundry tasks with min cues. Pt ambulates to 1st floor with FWW and SBA, mod cues for navigation through unfamiliar corridors. Pt sits within [facility] to focus on deep breathing and relaxation. Pt returns to ARU, min cues for directionality; states "See, no shortness of breath!" Sits EOM within rehab gym to complete UB exercise program to focus on endurance, strength, and ROM. Pt completes following exercises (3 sets of 15) with 2# weighted bar: abdominal twists, shoulder forward flexion. Pt increases balance and abdominal strength by lifting one leg during activities to offset base of support and increase abdominal activity. Pt completes bicep curls (3 sets of 15 exercises) with 5# weighted bar. Pt completes with skilled cues for positioning and graduation. Pt returns to room, bed mob with SUP. Pt left in bed, HOB raised, call light in reach, all needs met and nursing present. Education OT Patient Education: Correct positioning, Exercise program, Home exercise program, Progress toward Goal/Update tx plan, Rehab process, Safety issues Teaching Recipient: Patient Teaching Methods: Demonstration, Discussion Response to Teaching: Verbalize Understanding, Return Demonstration OT Short Term Goals Short Term Goals Eating(FIM): 7 Grooming(FIM): 7 Upper Body Dressing(FIM): 6 Lower Body Dressing(FIM): 6 Toilet/Commode Transfer(FIM): 6 Additional Short Term Goals: 1-Demonstrate ADL Tasks, 2-Verbalize Understanding, 3-ImproveStrength/[place] 1=Demonstrate adherence to instructed precautions during ADL tasks. 2=Patient will verbalize/demonstrate understanding of assistive devices/modifica tions for ADL. 3=Patient will improve strength/tolerance for activity to enable patient to perform ADL's. OT Cell Tester Goals Cell Tester Goals Eating (QC): 6 Oral Hygiene (QC): 6 Shower/Bathe Self (QC): 6 Upper Body Dressing (QC): 6 (met) Lower Body Dressing (QC): 6 On/Off Footwear (QC): 6 Toileting Hygiene (QC): 6 (met) Toilet/Commode Transfer (QC): 6 Additional Goals: 1-Demonstrate ADL Tasks, 2-Verbalize Understanding, 3- ImproveStrength/[place] 1=Demonstrate adherence to instructed precautions during ADL tasks. 2=Patient will verbalize/demonstrate understanding of assistive devices/modifications for ADL. 3=Patient will improve strength/tolerance for activity to enable patient to perform ADL's. OT Education/Plan Problem List/Assessment Assessment: Decreased Activ Tolerance, Decreased UE Strength, Impaired I ADL's, Restricted Funct UE ROM Discharge Recommendations Plan/Recommendations: Continue POC Equpiment Recommendations-D/C: None Treatment Plan/Plan of Care Treatment,Training & Education: Yes Patient would benefit from OT for education, treatment and training to promote independence in ADL's, mobility, safety and/or upper extremity function for ADL's. Plan of Care: ADL Retraining, Functional Mobility, Group Exercise/Act as Ind, UE Funct Exercise/Act Treatment Duration: Jun 24, 2019 Frequency: At least 5 of 7 days/Wk (IRF) Estimated Hrs Per Day: 1.5 hours per day Agreement: Yes Rehab Potential: Good Time/GCodes Start Time: 07:00 Stop Time: 08:30 Total Time Billed (hr/min): 90 Billed Treatment Time 1, ADL (60), EX (30)= 90 RAMIRO MAYS OTR Jun 12, 2019 07:29
[2019-06-12] MEDS: EXCEDRIN MIGRAINE PO PRN (08:42)
[2019-06-12] MEDS: PYRIDOSTIGMINE 60 MG TAB (MESTINON) NON-FORMULARY PO SCH ×3 (08:42→21:51)
[2019-06-12] MEDS: MELOXICAM 7.5 MG (MOBIC) TABLET PO SCH (08:48)
[2019-06-12] MEDS: CARVEDILOL 3.125 MG (COREG) TABLET PO SCH ×2 (08:48→21:50)
[2019-06-12] MEDS: PANTOPRAZOLE 40 MG (PROTONIX) TAB PO SCH (08:48)
[2019-06-12] MEDS: DULoxetine 30 MG (CYMBALTA) CAP PO SCH (08:48)
[2019-06-12] MEDS: PYRIDOXINE (VITAMIN B-6) 50 MG TABLET PO SCH (08:48)
[2019-06-12] MEDS: SPIRONOLACTONE 25 MG (ALDACTONE) TAB PO SCH (08:49)
[2019-06-12] MEDS: GABAPENTIN 300 MG (NEURONTIN) CAP PO SCH ×4 (08:49→21:50)
[2019-06-12] MEDS: VITAMIN D3 5,000 UNITS (CHOLECALCIFEROL ) CAPSULE PO SCH (08:57)
[2019-06-12] MEDS: SENNA W/DOCUSATE (SENOKOT S) TABLET PO SCH ×2 (09:00→21:55)
--- NOTE | 2019-06-12 10:35 | Physical Therapy Daily Note ---
PT Daily Note-Current Subjective Pt laying Supine in bed upon arrival. Pt agrees to PT. Pain Location: No Pain Reported Mental Status Patient Orientation: Person, Place, Time, Situation Transfers SCALE: Activities may be completed with or without assistive devices. 0-Pqeydfeufg-lenhocl completes the activity by him/herself with no assistance from a helper. 5-Set-up or Clean-up Assistance-helper sets up or cleans up; patient completes activity. [place] assists only prior to or following the activity. 4-Supervision or Touching Assistance-helper provides verbal cues and/or touching/steadying and/or contact guard assistance as patient completes activity. Assistance may be provided throughout the activity or intermittently. 3-Partial/Moderate Assistance-helper does LESS THAN HALF the effort. [place] lifts, holds or supports trunk or limbs, but provides less than half the effort. 2-Substantial/Maximal Assistance-helper does MORE THAN HALF the effort. [place] lifts or holds trunk or limbs and provides more than half the effort. 1-Rtaxvlvqc-lhfqlp does ALL the effort. Patient does none of the effort to complete the activity. Or, the assistance of 2 or more helpers is required for the patient to complete the activity. If activity was not attempted, code reason: 7-Patient Refused. 9-Not Applicable-not attempted and the patient did not perform the activity be fore the current illness, exacerbation or injury. 10-Not Attempted due to Environmental Limitations-(lack of equipment, weather restraints, etc.). 88-Not Attempted due to Medical Conditions or Safety Concerns. Roll Left to Right (QC): 5 Sit to Lying (QC): 5 Sit to Stand (QC): 5 Chair/Unu-ru-Cdezh Xfer(QC): 5 Bed to/from Chair: 5 Weight Bearing Full Weight Bearing Full Weight Bearing Gait Training Does the Patient Walk?: Yes Gait: 5 Distance: 1000'+ Walk 10 feet (QC): 5 Walk 50 ft with 2 Turns(QC): 5 Walk 150 ft (QC): 5 Gait Persons Needed: 1 Gait Assistive Device: FWW Wheelchair Training Does the Pt Use a Wheelchair?: No Exercises Supine Ex: Ankle pumps, Quad Set, Glut sets, Heel Slides, Straight leg raise, Hip abd/add Supine Reps: 20 Standing: Heel/toe raises, 3 way Ex=Flex, Abd, Ext, Marching, Mini squats, Weight shifts Standing Reps: 20 NuStep Minutes: 15 NuStep Workload: 5 Treatments Pt transfers from bed to standing and ambulates in hallway then to Therapy Gym. Pt uses NuStep for 15m at WL 5. Pt then completes Standing EX in //bars. Pt takes short RB then ambulates in hallway and on main floor of hospital. Pt takes one seated RB on 4WW. Pt returns to room to use restroom then returns to rest in bed. Pt completes Supine Ex then rests at end of tx. Pt has all needs met, call light in hand. Assessment Pt continues to make progress with gaining strength and activity tolerance during Rx. PT Short Term Goals Short Term Goals Time Frame: Jun 17, 2019 Gait Distance Comment: 300' SBA Gait Assistive Device: FWW PT Jail Goals Curriculum Development Manager Goals PT Curriculum Development Manager Goals Time Frame: Jul 01, 2019 Sit to Lying (QC): 6 Lying-Sitting on Side/Bed(QC): 6 Sit to Stand (QC): 6 Roll Left to Right (QC): 6 Chair/Bwh-vs-Eynjh Xfer(QC): 6 Car Transfer (QC): 6 Distance: 500' Walk 10 feet (QC): 6 Walk 10ft-Uneven Surface(QC): 6 Walk 50ft with 2 Turns (QC): 6 Walk 150 ft (QC): 6 Gait Assistive Device: Walker 4 Wheeled Does the Pt use WC or Scooter?: No # of Steps: 12 (SBA) 1 Step (curb) (QC): 4 4 Steps (QC): 4 12 Steps (QC): 4 Picking up an Object (QC): 6 PT Plan Problem List Problem List: Activity Tolerance, Functional Strength, Gait Treatment/Plan Treatment Plan: Continue Plan of Care Treatment Plan: Education, Functional Activity [place], Functional Strength, Group Therapy, Gait, Safety, Therapeutic Exercise, Transfers Treatment Duration: Jun 10, 2019 Frequency: At least 5 of 7 days/Wk (IRF) Estimated Hrs Per Day: 1.5 hours per day Patient and/or Family Agrees t: Yes Safety Risks/Education Patient Education: Gait Training, Transfer Techniques, Correct Positioning, Safety Issues Teaching Recipient: Patient Teaching Methods: Discussion Response to Teaching: Verbalize Understanding Time/GCodes Time In: 845 Time Out: 1015 Total Billed Treatment Time: 90 Total Billed Treatment 1, GT x2 (30m), FA (15m) & EX x3 (45m) ARIAS DAVILA STRESS ANALYST Jun 12, 2019 10:35
--- NOTE | 2019-06-12 14:57 | PM&R Progress Note ---
Subjective HPI/CC On Admission Date Seen by Provider: Jun 12, 2019 Time Seen by Provider: 13:[address] Carbone CC: Severe debility with MyastheniaGravis HPI: This is a pt who is being transferredfrom Med after and ICU coursefollowing klebsiella pneumoniaseptic shock, completed Meropenem and. extubated doing very well. 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 J Tube maintained for nutrition support and that did get replaced prior to transfer from since a piece had broken off when she was getting into the car to come to rehab She has been to rehab in the past and she usually runs low on minerals and B12 due to gastric bypass before. Her Hgb remains stable at 11.9 and her phosphorus was low but it was 2.4 today and creatinine remains normal at 0.6 She remains on Prednisone 40mg since she is tolerating her diet well.PLOF is use of walker at home and mostly independent with ADL's. Elliot Gutiérrez, MSIII: Barriers to discharge/return home: * Pneumonia has resolved, however she reports she remains SOB * Main concern for therapy is her endurance and SOB * Otherwise feels capable of going about her ADLs, has assistance from her at home. Looks forward to numerous family events next year. 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, continues to see for management * PE * L eye ptosis noted * On auscultation, heart RRR, lungs CTAB * Strength testing 5 for UE, LE * Patellar reflex present on L, not elicited on R * No deficits noted on exam of CN 7 * on testing of CN 3,4,6, noted L eye nystagmus when looking down and away Subjective/Events-last exam Patient having another migraine so Excedrin Migraine started earlier than yesterday, has a lot of migraines at times then other times not many BM+ Tube feeding tolerated at night Overall slow progress but our goal is to get her back to her baseline No pain otherwise Checked meds and labs Conferred with patrol man therapy notes Review of Systems General: Fatigue, Other (BROOKS) Musculoskeletal: back pain Objective Exam Vital Signs Vital Signs Date Time Temp Pulse Resp B/P (MAP) Pulse Ox O2 Delivery O2 Flow Rate FiO2 06/12/19 09:00 Room Air 06/12/19 05:35 36.3 64 20 129/65 (86) 95 Capillary Refill : General Appearance: No Apparent Distress, WD/WN, Chronically ill, Cachetic, Thin, Other (frail) HEENT: PERRL/EOMI, Normal ENT Inspection, Pharynx Normal, Moist Mucous Membranes Neck: Full Range of Motion, Normal Inspection, Non Tender, Supple Respiratory: Chest Non Tender, Lungs Clear, Normal Breath Sounds, No Accessory Muscle Use, No Respiratory Distress Cardiovascular: Regular Rate, Rhythm, No Edema, No Gallop, No JVD, No Murmur Gastrointestinal: Normal Bowel Sounds, No Organomegaly, No Pulsatile Mass, Non Tender, Soft Back: Normal Inspection, No CVA Tenderness, No Vertebral Tenderness Extremity: Normal Capillary Refill, Normal Inspection, Normal Range of Motion, Non Tender, No Calf Tenderness, No Pedal Edema Neurologic/Psychiatric: Alert, Oriented x3, No Motor/Sensory Deficits, Normal Mood/Affect, cloth finishing range tender II-XII Norm as Tested, Motor Weakness (generalized all extremities) Skin: Normal Color, Warm/Dry Lymphatic: No Adenopathy Results/Procedures Lab Patient resulted labs reviewed. FIM Transfers Therapy Code Descriptions/Definitions Functional [place] Measure: 0=Not Assessed/NA 4=Minimal Assistance 1=Total Assistance 5=Supervision or Setup 2=Maximal Assistance 6=Modified [place] 3=Moderate Assistance 7=Complete IndependenceSCALE: Activities may be completed with or without assistive devices. 8-Apfrecckjk-ajekyke completes the activity by him/herself with no assistance from a helper. 5-Set-up or Clean-up Assistance-helper sets up or cleans up; patient completes activity. [place] assists only prior to or following the activity. 4-Supervision or Touching Assistance-helper provides verbal cues and/or touching/steadying and/or contact guard assistance as patient completes activity. Assistance may be provided throughout the activity or intermittently. 3-Partial/Moderate Assistance-helper does LESS THAN HALF the effort. [place] lif ts, holds or supports trunk or limbs, but provides less than half the effort. 2-Substantial/Maximal Assistance-helper does MORE THAN HALF the effort. [place] lifts or holds trunk or limbs and provides more than half the effort. 1-Ukffawbps-didyzk does ALL the effort. Patient does none of the effort to complete the activity. Or, the assistance of 2 or more helpers is required for the patient to complete the activity. If activity was not attempted, code reason: 7-Patient Refused. 9-Not Applicable-not attempted and the patient did not perform the activity before the current illness, exacerbation or injury. 10-Not Attempted due to Environmental Limitations-(lack of equipment, weather restraints, etc.). 88-Not Attempted due to Medical Conditions or Safety Concerns. Roll Left to Right (QC): 5 Sit to Lying (QC): 5 Sit to Stand (QC): 5 Chair/Mgv-hg-Xzghv Xfer(QC): 5 Bed to/from Chair: 5 Car Transfer (QC): 6 Gait Training Does the Patient Walk?: Yes Gait (FIM): 5 Distance (FIM): 3=150 ft Distance: 1000'+ Walk 10 feet (QC): 5 Walk 50 ft with 2 Turns(QC): 5 Walk 150 ft (QC): 5 Walking 10ft/uneven surface-QC: 4 (SBA) Gait Persons Needed: 1 Gait Assistive Device: FWW Wheelchair Training Does the Pt Use a Wheelchair?: No Stair Training 1 Step (curb) (QC): 4 (CGA. Pt uses 4 wheeeled walker and picks up to put over step.) 4 Steps (QC): 4 (SBA) 12 Steps (QC): 4 (SBA) Balance Picking up an Object (QC): 4 (SBA) ADL-Treatment Eating (QC): 6 (Completes reclined in bed, no dentation.) Oral Hygiene (QC): 5 (Pt rinses mouth with SBA at sink) Shower/Bathe Self (QC): 5 (SBA for shower transfer onto shower chairPt completes with SUP, able to wash all areas.) Upper Body Dressing (QC): 6 Lower Body Dressing (QC): 5 (SBA in stance during pull up) On/Off Footwear (QC): 6 (Completes while sitting) Toileting Hygiene (QC): 6 (completes thoroughly after BM) Toilet Transfer (QC): 5 (SUP with FWW to toilet) Assessment/Plan Assessment and Plan Assess & Plan/Chief Complaint Assessment: MG s/p vent dependency s/p Klebsiella pneumoniae Osteonecrosis of the jaw hx Gastric bypass hx Vitamin deficiency Chronic diarrhea Malabsorption Acute on chronic migraine Plan: Home meds IRF protocol Checked meds Migraine treatment Monitor pain (1) Myasthenia gravis Status: Acute (2) S/P gastric bypass (3) Malnutrition (4) B12 deficiency (5) History of ventilator dependency (6) Klebsiella pneumonia (7) Osteonecrosis of jaw (8) Gastrointestinal tube present Status: Acute JESSE PHILLIPS DO Jun 12, 2019 14:57
[2019-06-12] MEDS ORDERED: ceTIRizine 10 MG (ZyrTEC) TAB NON-FORMULARY PO SCH (17:30)
[2019-06-12 18:00] VITALS: BP 144/67
[2019-06-12] MEDS ORDERED: [UNRECOGNIZED DRUG - OTHER] SQ SCH (18:00)
[2019-06-12] MEDS ORDERED: IMMUNE GLOBULIN SQ SCH (18:00)
--- NOTE | 2019-06-12 19:07 | NUR ---
bedside report received from RIZWAN SANTIAGO, assume care of pt
[2019-06-12 21:50] VITALS: BP 142/75
[2019-06-12] MEDS: rOPINIRole 0.25 MG (REQUIP) TAB PO SCH (21:50)
[2019-06-12] MEDS: SIMvastatin 10 MG (ZOCOR) TAB PO SCH (21:52)
--- NOTE | 2019-06-12 21:53 | NUR ---
pt refused Senokot 2 tabs states have loose stools from tube feeding
[2019-06-12] MEDS: TEMAZEPAM 15 MG (RESTORIL) CAP PO PRN (22:00)
--- NOTE | 2019-06-12 22:00 | NUR ---
tube feeding started iso source 80ml/hr per j-tube
--- NOTE | 2019-06-13 03:50 | NUR ---
tube feeding completed, j-tube flushed with 30ml warm water
[2019-06-13 05:36] VITALS: BP 119/68
[2019-06-13] MEDS: LIPASE/AMYLASE/PROTEASE (PANCRELIPASE) 5,000 UNITS CAP PO SCH ×3 (06:49→16:55)
[2019-06-13] MEDS: FERROUS SULF 325 MG (IRON) TAB PO SCH (06:49)
[2019-06-13] MEDS: predniSONE 20 MG TAB PO SCH (06:50)
[2019-06-13] MEDS: CYANOCOBALAMIN 1,000 MCG (VITAMIN B-12) TABLET PO SCH (06:50)
[2019-06-13] MEDS: MULTIVIT W/MINERALS TAB (THERAGRAN M) PO SCH (06:50)
[2019-06-13] MEDS: BIOTIN 10000 MCG PO SCH (06:50)
[2019-06-13] MEDS: CALCIUM CARB + VIT D 600 MG (CALCARB + D) TAB PO SCH ×3 (06:50→16:55)
--- NOTE | 2019-06-13 07:22 | NUR ---
bedside report given to MARYANNE SANTIAGO
--- NOTE | 2019-06-13 09:12 | PM&R Progress Note ---
Subjective HPI/CC On Admission Date Seen by Provider: Jun 13, 2019 Time Seen by Provider: 09:[address] Carbone CC: Severe debility with MyastheniaGravis HPI: This is a pt who is being transferredfrom Med after and ICU coursefollowing klebsiella pneumoniaseptic shock, completed Meropenem and. extubated doing very well. 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 J Tube maintained for nutrition support and that did get replaced prior to transfer from since a piece had broken off when she was getting into the car to come to rehab She has been to rehab in the past and she usually runs low on minerals and B12 due to gastric bypass before. Her Hgb remains stable at 11.9 and her phosphorus was low but it was 2.4 today and creatinine remains normal at 0.6 She remains on Prednisone 40mg since she is tolerating her diet well.PLOF is use of walker at home and mostly independent with ADL's. Elliot Gutiérrez, MSIII: Barriers to discharge/return home: * Pneumonia has resolved, however she reports she remains SOB * Main concern for therapy is her endurance and SOB * Otherwise feels capable of going about her ADLs, has assistance from her at home. Looks forward to numerous family events next year. 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, continues to see for management * PE * L eye ptosis noted * On auscultation, heart RRR, lungs CTAB * Strength testing 5 for UE, LE * Patellar reflex present on L, not elicited on R * No deficits noted on exam of CN 7 * on testing of CN 3,4,6, noted L eye nystagmus when looking down and away Subjective/Events-last exam Patient having another migraine today. Has cycles of multiple migraines as she is having today BM+ Tube feeding tolerated at night Overall slow progress but our goal is to get her back to her baseline Family dynamics will require SW consultation No pain otherwise Checked meds and labs Conferred with social sciences chair therapy notes Review of Systems General: Fatigue Pulmonary: Dyspnea Objective Exam Vital Signs Vital Signs Date Time Temp Pulse Resp B/P (MAP) Pulse Ox O2 Delivery O2 Flow Rate FiO2 06/13/19 05:36 36.4 70 18 119/68 (85) 93 Room Air 06/12/19 18:00 2.00 Capillary Refill : General Appearance: No Apparent Distress, WD/WN, Chronically ill, Cachetic, Thin, Other (frail) HEENT: PERRL/EOMI, Normal ENT Inspection, Pharynx Normal, Moist Mucous Membranes Neck: Full Range of Motion, Normal Inspection, Non Tender, Supple Respiratory: Chest Non Tender, Lungs Clear, Normal Breath Sounds, No Accessory Muscle Use, No Respiratory Distress Cardiovascular: Regular Rate, Rhythm, No Edema, No Gallop, No JVD, No Murmur Gastrointestinal: Normal Bowel Sounds, No Organomegaly, No Pulsatile Mass, Non Tender, Soft Back: Normal Inspection, No CVA Tenderness, No Vertebral Tenderness Extremity: Normal Capillary Refill, Normal Inspection, Normal Range of Motion, Non Tender, No Calf Tenderness, No Pedal Edema Neurologic/Psychiatric: Alert, Oriented x3, No Motor/Sensory Deficits, Normal Mood/Affect, oracle technical architect II-XII Norm as Tested, Motor Weakness (generalized all extremities) Skin: Normal Color, Warm/Dry Lymphatic: No Adenopathy Results/Procedures Lab Patient resulted labs reviewed. FIM Transfers Therapy Code Descriptions/Definitions Functional [place] Measure: 0=Not Assessed/NA 4=Minimal Assistance 1=Total Assistance 5=Supervision or Setup 2=Maximal Assistance 6=Modified [place] 3=Moderate Assistance 7=Complete IndependenceSCALE: Activities may be completed with or without assistive devices. 4-Lyttbwtuqw-yhfhxut completes the activity by him/herself with no assistance from a helper. 5-Set-up or Clean-up Assistance-helper sets up or cleans up; patient completes activity. [place] assists only prior to or following the activity. 4-Supervision or Touching Assistance-helper provides verbal cues and/or t ouching/steadying and/or contact guard assistance as patient completes activity. Assistance may be provided throughout the activity or intermittently. 3-Partial/Moderate Assistance-helper does LESS THAN HALF the effort. [place] lifts, holds or supports trunk or limbs, but provides less than half the effort. 2-Substantial/Maximal Assistance-helper does MORE THAN HALF the effort. [place] lifts or holds trunk or limbs and provides more than half the effort. 5-Zrhtjorhp-brrpfl does ALL the effort. Patient does none of the effort to complete the activity. Or, the assistance of 2 or more helpers is required for the patient to complete the activity. If activity was not attempted, code reason: 7-Patient Refused. 9-Not Applicable-not attempted and the patient did not perform the activity before the current illness, exacerbation or injury. 10-Not Attempted due to Environmental Limitations-(lack of equipment, weather restraints, etc.). 88-Not Attempted due to Medical Conditions or Safety Concerns. Roll Left to Right (QC): 5 Sit to Lying (QC): 5 Sit to Stand (QC): 5 Chair/Rjv-ol-Roqbu Xfer(QC): 5 Bed to/from Chair: 5 Car Transfer (QC): 6 Gait Training Does the Patient Walk?: Yes Gait (FIM): 5 Distance (FIM): 3=150 ft Distance: 1000'+ Walk 10 feet (QC): 5 Walk 50 ft with 2 Turns(QC): 5 Walk 150 ft (QC): 5 Walking 10ft/uneven surface-QC: 4 (SBA) Gait Persons Needed: 1 Gait Assistive Device: FWW Wheelchair Training Does the Pt Use a Wheelchair?: No Stair Training 1 Step (curb) (QC): 4 (CGA. Pt uses 4 wheeeled walker and picks up to put over step.) 4 Steps (QC): 4 (SBA) 12 Steps (QC): 4 (SBA) Balance Picking up an Object (QC): 4 (SBA) ADL-Treatment Eating (QC): 6 (Completes reclined in bed, no dentation.) Oral Hygiene (QC): 5 (Pt rinses mouth with SBA at sink) Shower/Bathe Self (QC): 5 (SBA for shower transfer onto shower chairPt completes with SUP, able to wash all areas.) Upper Body Dressing (QC): 6 Lower Body Dressing (QC): 5 (SBA in stance during pull up) On/Off Footwear (QC): 6 (Completes while sitting) Toileting Hygiene (QC): 6 (completes thoroughly after BM) Toilet Transfer (QC): 5 (SUP with FWW to toilet) Assessment/Plan Assessment and Plan Assess & Plan/Chief Complaint Assessment: MG s/p vent dependency s/p Klebsiella pneumoniae Osteonecrosis of the jaw hx Gastric bypass hx Vitamin deficiency Chronic diarrhea Malabsorption Acute on chronic migraine Plan: Home meds IRF protocol Checked meds Migraine treatment Monitor pain (1) Myasthenia gravis Status: Acute (2) S/P gastric bypass (3) Malnutrition (4) B12 deficiency (5) History of ventilator dependency (6) Klebsiella pneumonia (7) Osteonecrosis of jaw (8) Gastrointestinal tube present Status: Acute JESSE PHILLIPS DO Jun 13, 2019 09:12
[2019-06-13] MEDS: ACETAMINOPHEN 500 MG TAB (TYLENOL) PO PRN (09:54)
[2019-06-13] MEDS: DULoxetine 30 MG (CYMBALTA) CAP PO SCH (09:55)
[2019-06-13] MEDS: PYRIDOXINE (VITAMIN B-6) 50 MG TABLET PO SCH (09:55)
[2019-06-13] MEDS: VITAMIN D3 5,000 UNITS (CHOLECALCIFEROL ) CAPSULE PO SCH (09:55)
[2019-06-13] MEDS: SPIRONOLACTONE 25 MG (ALDACTONE) TAB PO SCH (09:55)
[2019-06-13] MEDS: GABAPENTIN 300 MG (NEURONTIN) CAP PO SCH ×4 (09:55→20:33)
[2019-06-13] MEDS: PANTOPRAZOLE 40 MG (PROTONIX) TAB PO SCH (09:55)
[2019-06-13] MEDS: CARVEDILOL 3.125 MG (COREG) TABLET PO SCH ×2 (09:55→20:33)
[2019-06-13] MEDS: MELOXICAM 7.5 MG (MOBIC) TABLET PO SCH (09:55)
[2019-06-13] MEDS: SENNA W/DOCUSATE (SENOKOT S) TABLET PO SCH ×3 (09:56→20:40)
[2019-06-13] MEDS: PYRIDOSTIGMINE 60 MG TAB (MESTINON) NON-FORMULARY PO SCH ×3 (09:56→20:40)
[2019-06-13] MEDS ORDERED: ceTIRizine 10 MG (ZyrTEC) TAB NON-FORMULARY PO SCH (17:30)
[2019-06-13 18:00] VITALS: BP 124/75
[2019-06-13] MEDS ORDERED: IMMUNE GLOBULIN SUBCUTANEOUS SQ SCH (18:00)
[2019-06-13] MEDS ORDERED: [UNRECOGNIZED DRUG - OTHER] SQ SCH (18:00)
--- NOTE | 2019-06-13 19:07 | NUR ---
bedside report received from MARYANNE SANTIAGO, assume care of pt
[2019-06-13 20:31] VITALS: BP 121/68
[2019-06-13] MEDS: rOPINIRole 0.25 MG (REQUIP) TAB PO SCH (20:33)
[2019-06-13] MEDS: SIMvastatin 10 MG (ZOCOR) TAB PO SCH (20:34)
--- NOTE | 2019-06-13 20:35 | NUR ---
pt refused Senokot, up with minimal assist, took Restoril 30mg for sleep
[2019-06-13] MEDS: TEMAZEPAM 15 MG (RESTORIL) CAP PO PRN (20:38)
--- NOTE | 2019-06-13 22:15 | NUR ---
tube feeding 1.5 iso source at 80ml/hr started after flushing j-tube with warm water
--- NOTE | 2019-06-14 04:15 | NUR ---
tube feeding completed, flushed with 30ml warm water
[2019-06-14 05:19] VITALS: BP 106/57
[2019-06-14 05:36] LABS: BASOPHILS # (AUTO) 0.1 10^3/uL (0.0-0.1); BASOPHILS % (AUTO) 2 % (0-10); EOSINOPHILS # (AUTO) 0.3 10^3/uL (0.0-0.3); EOSINOPHILS % (AUTO) 5 % (0-10); HEMATOCRIT 35 % (35-52); HEMOGLOBIN 10.8 G/DL (11.5-16.0); LYMPHOCYTES % (AUTO) 28 % (12-44); MEAN CORPUSCULAR HEMOGLOBIN 31 PG (25-34); MEAN CORPUSCULAR HGB CONC 31 G/DL (32-36); MEAN CORPUSCULAR VOLUME 101 FL (80-99); MEAN PLATELET VOLUME 11.2 FL (7.4-10.4); MONOCYTES # (AUTO) 1.1 X 10^3 (0.0-1.0); MONOCYTES % (AUTO) 16 % (0-12); NEUTROPHILS # (AUTO) 3.7 X 10^3 (1.8-7.8); NEUTROPHILS % (AUTO) 51 % (42-75); PLATELET COUNT 530 10^3/uL (130-400); RED CELL DISTRIBUTION WIDTH 16.4 % (10.0-14.5); WHITE BLOOD COUNT 7.2 10^3/uL (4.3-11.0)
[2019-06-14 06:08] LABS: ALANINE AMINOTRANSFERASE 24 U/L (0-55); ALBUMIN 3.7 GM/DL (3.2-4.5); ALKALINE PHOSPHATASE 72 U/L (40-136); BILIRUBIN,TOTAL 0.3 MG/DL (0.1-1.0); BUN/CREATININE RATIO 25; CALCIUM 8.5 MG/DL (8.5-10.1); CARBON DIOXIDE 24 MMOL/L (21-32); CHLORIDE 107 MMOL/L (98-107); CREATININE SERUM 0.79 MG/DL (0.60-1.30); GFR ESTIMATED > 60; SODIUM 140 MMOL/L (135-145); TOTAL PROTEIN 5.8 GM/DL (6.4-8.2)
[2019-06-14 06:23] LABS: GLUCOSE 58 MG/DL (70-105)
[2019-06-14] MEDS: EXCEDRIN MIGRAINE PO PRN (06:30)
--- NOTE | 2019-06-14 06:30 | NUR ---
lab called blood glucose 58 given 4 oz oj
--- NOTE | 2019-06-14 06:52 | NUR ---
fsbs 132, pt eating breakfast
[2019-06-14] MEDS: FERROUS SULF 325 MG (IRON) TAB PO SCH (06:54)
[2019-06-14] MEDS: CALCIUM CARB + VIT D 600 MG (CALCARB + D) TAB PO SCH ×3 (06:54→17:05)
[2019-06-14] MEDS: BIOTIN 10000 MCG PO SCH (06:54)
[2019-06-14] MEDS: MULTIVIT W/MINERALS TAB (THERAGRAN M) PO SCH (06:55)
[2019-06-14] MEDS: LIPASE/AMYLASE/PROTEASE (PANCRELIPASE) 5,000 UNITS CAP PO SCH ×3 (06:55→17:04)
[2019-06-14] MEDS: CYANOCOBALAMIN 1,000 MCG (VITAMIN B-12) TABLET PO SCH (06:55)
[2019-06-14] MEDS: predniSONE 20 MG TAB PO SCH (06:55)
--- NOTE | 2019-06-14 07:22 | NUR ---
bedside report given to ADRY SANTIAGO
--- NOTE | 2019-06-14 09:03 | PM&R Progress Note ---
Subjective HPI/CC On Admission Date Seen by Provider: Jun 14, 2019 Time Seen by Provider: 08:[address] Carbone CC: Severe debility with MyastheniaGravis HPI: This is a pt who is being transferredfrom Med after and ICU cour sefollowing klebsiella pneumoniaseptic shock, completed Meropenem and. extubated doing very well. 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 J Tube maintained for nutrition support and that did get replaced prior to transfer from since a piece had broken off when she was getting into the car to come to rehab She has been to rehab in the past and she usually runs low on minerals and B12 due to gastric bypass before. Her Hgb remains stable at 11.9 and her phosphorus was low but it was 2.4 today and creatinine remains normal at 0.6 She remains on Prednisone 40mg since she is tolerating her diet well.PLOF is use of walker at home and mostly independent with ADL's. Elliot Gutiérrez, MSIII: Barriers to discharge/return home: * Pneumonia has resolved, however she reports she remains SOB * Main concern for therapy is her endurance and SOB * Otherwise feels capable of going about her ADLs, has assistance from her at home. Looks forward to numerous family events next year. 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, continues to see for management * PE * L eye ptosis noted * On auscultation, heart RRR, lungs CTAB * Strength testing 5 for UE, LE * Patellar reflex present on L, not elicited on R * No deficits noted on exam of CN 7 * on testing of CN 3,4,6, noted L eye nystagmus when looking down and away Subjective/Events-last exam Sugar is 58 this morning Albumin discussed Diarrhea continues to be an issue but that is chronic Red area on her buttock will be monitored Ivig treatment given this weekend with steroids Checked meds and labs Conferred with briar wood sorter therapy notes Review of Systems General: Fatigue Pulmonary: Cough Objective Exam Vital Signs Vital Signs Date Time Temp Pulse Resp B/P (MAP) Pulse Ox O2 Delivery O2 Flow Rate FiO2 06/14/19 17:25 36.7 81 20 131/73 (92) 99 Room Air 06/12/19 18:00 2.00 Capillary Refill : General Appearance: No Apparent Distress, WD/WN, Chronically ill, Cachetic, Thin, Other (frail) HEENT: PERRL/EOMI, Normal ENT Inspection, Pharynx Normal, Moist Mucous Membranes Neck: Full Range of Motion, Normal Inspection, Non Tender, Supple Respiratory: Chest Non Tender, Lungs Clear, Normal Breath Sounds, No Accessory Muscle Use, No Respiratory Distress Cardiovascular: Regular Rate, Rhythm, No Edema, No Gallop, No JVD, No Murmur Gastrointestinal: Normal Bowel Sounds, No Organomegaly, No Pulsatile Mass, Non Tender, Soft Back: Normal Inspection, No CVA Tenderness, No Vertebral Tenderness Extremity: Normal Capillary Refill, Normal Inspection, Normal Range of Motion, Non Tender, No Calf Tenderness, No Pedal Edema Neurologic/Psychiatric: Alert, Oriented x3, No Motor/Sensory Deficits, Normal M ood/Affect, block sawyer II-XII Norm as Tested, Motor Weakness (generalized all extremities) Skin: Normal Color, Warm/Dry Lymphatic: No Adenopathy Results/Procedures Lab Laboratory Tests 06/14/19 05:05 Patient resulted labs reviewed. FIM Transfers Therapy Code Descriptions/Definitions Functional [place] Measure: 0=Not Assessed/NA 4=Minimal Assistance 1=Total Assistance 5=Supervision or Setup 2=Maximal Assistance 6=Modified [place] 3=Moderate Assistance 7=Complete IndependenceSCALE: Activities may be completed with or without assistive devices. 5-Wvynsqtvcs-ubukpyo completes the activity by him/herself with no assistance from a helper. 5-Set-up or Clean-up Assistance-helper sets up or cleans up; patient completes activity. [place] assists only prior to or following the activity. 4-Supervision or Touching Assistance-helper provides verbal cues and/or touching/steadying and/or contact guard assistance as patient completes activity. Assistance may be provided throughout the activity or intermittently. 3-Partial/Moderate Assistance-helper does LESS THAN HALF the effort. [place] lifts, holds or supports trunk or limbs, but provides less than half the effort. 2-Substantial/Maximal Assistance-helper does MORE THAN HALF the effort. [place] lifts or holds trunk or limbs and provides more than half the effort. 9-Tbxwofnbg-rykggc does ALL the effort. Patient does none of the effort to complete the activity. Or, the assistance of 2 or more helpers is required for the patient to complete the activity. If activity was not attempted, code reason: 7-Patient Refused. 9-Not Applicable-not attempted and the patient did not perform the activity before the current illness, exacerbation or injury. 10-Not Attempted due to Environmental Limitations-(lack of equipment, weather restraints, etc.). 88-Not Attempted due to Medical Conditions or Safety Concerns. Roll Left to Right (QC): 5 Sit to Lying (QC): 5 Sit to Stand (QC): 5 Chair/Fjm-fj-Irsqj Xfer(QC): 5 Bed to/from Chair: 5 Car Transfer (QC): 6 Gait Training Does the Patient Walk?: Yes Gait (FIM): 5 Distance (FIM): 3=150 ft Distance: 1000'+ Walk 10 feet (QC): 5 Walk 50 ft with 2 Turns(QC): 5 Walk 150 ft (QC): 5 Walking 10ft/uneven surface-QC: 4 (SBA) Gait Persons Needed: 1 Gait Assistive Device: FWW Wheelchair Training Does the Pt Use a Wheelchair?: No Stair Training 1 Step (curb) (QC): 4 (CGA. Pt uses 4 wheeeled walker and picks up to put over step.) 4 Steps (QC): 4 (SBA) 12 Steps (QC): 4 (SBA) Balance Picking up an Object (QC): 4 (SBA) ADL-Treatment Eating (QC): 6 (Completes reclined in bed, no dentation.) Oral Hygiene (QC): 5 (Pt rinses mouth with SBA at sink) Shower/Bathe Self (QC): 5 (SBA for shower transfer onto shower chairPt completes with SUP, able to wash all areas.) Upper Body Dressing (QC): 6 Lower Body Dressing (QC): 5 (SBA in stance during pull up) On/Off Footwear (QC): 6 (Completes while sitting) Toileting Hygiene (QC): 6 (completes thoroughly after BM) Toilet Transfer (QC): 5 (SUP with FWW to toilet) Assessment/Plan Assessment and Plan Assess & Plan/Chief Complaint Assessment: MG s/p vent dependency s/p Klebsiella pneumoniae Osteonecrosis of the jaw hx Gastric bypass hx Vitamin deficiency Chronic diarrhea Malabsorption Acute on chronic migraine Plan: Home meds IRF protocol Checked meds Migraine treatment Monitor pain (1) Myasthenia gravis Status: Acute (2) S/P gastric bypass (3) Malnutrition (4) B12 deficiency (5) History of ventilator dependency (6) Klebsiella pneumonia (7) Osteonecrosis of jaw (8) Gastrointestinal tube present Status: Acute JESSE PHILLIPS DO Jun 14, 2019 09:03 POS
--- NOTE | 2019-06-14 09:29 | Occupational Ther Daily Note ---
OT Current Status-Daily Note Subjective Pt seen reclined in bed, pt states no pain today. Pt's eyes demonstrate increased strength/ less droopiness; pt states no diplopia. Pt agreeable to OT tx session. Mental Status/Objective Patient Orientation: Normal For Age ADL-Treatment Therapy Code Descriptions/Definitions Functional [place] Measure: 0=Not Assessed/NA 4=Minimal Assistance 1=Total Assistance 5=Supervision or Setup 2=Maximal Assistance 6=Modified [place] 3=Moderate Assistance 7=Complete IndependenceSCALE: Activities may be completed with or without assistive devices. 1-Lniqvovczq-svusppv completes the activity by him/herself with no assistance from a helper. 5-Set-up or Clean-up Assistance-helper sets up or cleans up; patient completes activity. [place] assists only prior to or following the activity. 4-Supervision or Touching Assistance-helper provides verbal cues and/or touching/steadying and/or contact guard assistance as patient completes activity. Assistance may be provided throughout the activity or intermittently. 3-Partial/Moderate Assistance-helper does LESS THAN HALF the effort. [place] lifts, holds or supports trunk or limbs, but provides less than half the effort. 2-Substantial/Maximal Assistance-helper does MORE THAN HALF the effort. [place] lifts or holds trunk or limbs and provides more than half the effort. 3-Israowsqj-gxcqsl does ALL the effort. Patient does none of the effort to complete the activity. Or, the assistance of 2 or more helpers is required for the patient to complete the activity. If activity was not attempted, code reason: 7-Patient Refused. 9-Not Applicable-not attempted and the patient did not perform the activity before the current illness, exacerbation or injury. 10-Not Attempted due to Environmental Limitations-(lack of equipment, weather restraints, etc.). 88-Not Attempted due to Medical Conditions or Safety Concerns. Eating (QC): 6 (Pt completes drinking/eating in bed. ) Oral Hygiene (QC): 6 (Pt completes standing at sink, supports self with sink. ) Shower/Bathe Self (QC): 6 (Pt completes shower transfer and showering on shower chair with IND. ) Upper Body Dressing (QC): 6 (Completes in chair.) Lower Body Dressing (QC): 6 (Completes on shower chair, IND.) Toileting Hygiene (QC): 6 (Completes hygiene IND.) Toilet Transfer (QC): 6 (Increased time with FWW, IND.) Other Treatment Pt gathers clothing items with support from FWW. Pt completes ADLs in room; stands at sink with good dynamic and static balance to complete grooming activities at sink. Pt sits in recliner chair to complete UE theraband exercises; pt educated on strength based and endurance based activities to follow through at home. Pt completes UE exercises (15 reps, 1 set) of back flies, external rotations, and bicep curls. Pt left in recliner chair, call light in reach, all needs met. Education OT Patient Education: Correct positioning, Exercise program, Home exercise program, Purpose of tx/functional activities, Rehab process Teaching Recipient: Patient Teaching Methods: Demonstration, Discussion Response to Teaching: Verbalize Understanding, Return Demonstration OT Short Term Goals Short Term Goals Eating(FIM): 7 (met) Grooming(FIM): 7 Upper Body Dressing(FIM): 6 (met) Lower Body Dressing(FIM): 6 (met) Toilet/Commode Transfer(FIM): 6 (met) Additional Short Term Goals: 1-Demonstrate ADL Tasks, 2-Verbalize Understanding, 3-ImproveStrength/[place] 1=Demonstrate adherence to instructed precautions during ADL tasks. 2=Patient will verbalize/demonstrate understanding of assistive devices/modifications for ADL. 3=Patient will improve strength/tolerance for activity to enable patient to perform ADL's. OT Jail Goals Jail Goals Eating (QC): 6 (met) Oral Hygiene (QC): 6 (met) Shower/Bathe Self (QC): 6 (met) Upper Body Dressing (QC): 6 (met) Lower Body Dressing (QC): 6 (met) On/Off Footwear (QC): 6 (met) Toileting Hygiene (QC): 6 (met) Toilet/Commode Transfer (QC): 6 (met) Additional Goals: 1-Demonstrate ADL Tasks, 2-Verbalize Understanding, 3- ImproveStrength/[place] 1=Demonstrate adherence to instructed precautions during ADL tasks. 2=Patient will verbalize/demonstrate understanding of assistive devices/modifications for ADL. 3=Patient will improve strength/tolerance for activity to enable patient to perform ADL's. OT Education/Plan Problem List/Assessment Assessment: Decreased Activ Tolerance, Decreased UE Strength, Impaired I ADL's, Restricted Funct UE ROM Discharge Recommendations Plan/Recommendations: Continue POC Treatment Plan/Plan of Care Treatment,Training & Education: Yes Patient would benefit from OT for education, treatment and training to promote independence in ADL's, mobility, safety and/or upper extremity function for ADL's. Plan of Care: ADL Retraining, Functional Mobility, Group Exercise/Act as Ind, UE Funct Exercise/Act Treatment Duration: Jun 24, 2019 Frequency: At least 5 of 7 days/Wk (IRF) Estimated Hrs Per Day: 1.5 hours per day Agreement: Yes Rehab Potential: Good Time/GCodes Start Time: 09:00 Stop Time: 10:30 Total Time Billed (hr/min): 90 Billed Treatment Time 1, ADLx3 (45) EX (15)= 60 RAMIRO MAYS OTR Jun 14, 2019 09:29
[2019-06-14 10:02] VITALS: BP 126/66
[2019-06-14] MEDS: DULoxetine 30 MG (CYMBALTA) CAP PO SCH (10:04)
[2019-06-14] MEDS: SPIRONOLACTONE 25 MG (ALDACTONE) TAB PO SCH (10:04)
[2019-06-14] MEDS: VITAMIN D3 5,000 UNITS (CHOLECALCIFEROL ) CAPSULE PO SCH (10:04)
[2019-06-14] MEDS: MELOXICAM 7.5 MG (MOBIC) TABLET PO SCH (10:04)
[2019-06-14] MEDS: PYRIDOXINE (VITAMIN B-6) 50 MG TABLET PO SCH (10:04)
[2019-06-14] MEDS: PANTOPRAZOLE 40 MG (PROTONIX) TAB PO SCH (10:04)
[2019-06-14] MEDS: GABAPENTIN 300 MG (NEURONTIN) CAP PO SCH ×4 (10:05→20:43)
[2019-06-14] MEDS: CARVEDILOL 3.125 MG (COREG) TABLET PO SCH ×2 (10:05→20:44)
[2019-06-14] MEDS: SENNA W/DOCUSATE (SENOKOT S) TABLET PO SCH ×2 (10:06→20:44)
[2019-06-14] MEDS: PYRIDOSTIGMINE 60 MG TAB (MESTINON) NON-FORMULARY PO SCH ×3 (10:07→20:43)
--- NOTE | 2019-06-14 10:08 | Progress Note ---
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 Received IVIG y , has June appointment with neurologist. * Had migraines over the weekend, no complaints of migraine today. * When seen today, denies having any SOB. Reports increased endurance, feels capable of performing her ADLs. Would like to have more freedom to walk on her own due to her restless leg syndrome. * Complains of double vision, ptosis noted on L * PT/OT reports she needs only set up/clean up assistance with her activities * Prior to admission reports she was able to ambulate with use of walker at home, was mostly independent with ADLs * Estimated date of discharge: June 17 BRENDA PHILLIPS DO 06/14/192031: Supervisory-Addendum Brief Verification & Attestation Participated in pt care: history, MDM, physical Personally performed: exam, history, MDM, supervision of care Care discussed with: Medical Student Procedures: n/a Results interpretation: Verified all documentation Verification and Attestation of Medical Student E/M Service A medical student performed and documented this service in my presence. I reviewed and verified all information documented by the medical student and made modifications to such information, when appropriate. I personally performed the physical exam and medical decision making. Brenda Phillips, Jun 14, 2019,20:31 ADRYAN CARRILLO MED STUDENT Jun 14, 2019 10:08 BRENDA SAUCEDO DO Jun 14, 2019 20:32 POS
--- NOTE | 2019-06-14 10:25 | NUR ---
Pastoral care visit.
--- NOTE | 2019-06-14 11:07 | Occupational Ther Daily Note ---
OT Current Status-Daily Note Subjective Pt seen in recliner chair, pt agreeable to OT tx session. Pt states no pain. Mental Status/Objective Patient Orientation: Normal For Age ADL-Treatment Therapy Code Descriptions/Definitions Functional [place] Measure: 0=Not Assessed/NA 4=Minimal Assistance 1=Total Assistance 5=Supervision or Setup 2=Maximal Assistance 6=Modified [place] 3=Moderate Assistance 7=Complete IndependenceSCALE: Activities may be completed with or without assistive devices. 0-Qoqwdcwlgz-gwfhzbj completes the activity by him/herself with no assistance from a helper. 5-Set-up or Clean-up Assistance-helper sets up or cleans up; patient completes activity. [place] assists only prior to or following the activity. 4-Supervision or Touching Assistance-helper provides verbal cues and/or touching/steadying and/or contact guard assistance as patient completes activity. Assistance may be provided throughout the activity or intermittently. 3-Partial/Moderate Assistance-helper does LESS THAN HALF the effort. [place] lifts, holds or supports trunk or limbs, but provides less than half the effort. 2-Substantial/Maximal Assistance-helper does MORE THAN HALF the effort. [place] lifts or holds trunk or limbs and provides more than half the effort. 4-Gxrrxgyrt-owkvvz does ALL the effort. Patient does none of the effort to complete the activity. Or, the assistance of 2 or more helpers is required for the patient to complete the activity. If activity was not attempted, code reason: 7-Patient Refused. 9-Not Applicable-not attempted and the patient did not perform the activity before the current illness, exacerbation or injury. 10-Not Attempted due to Environmental Limitations-(lack of equipment, weather restraints, etc.). 88-Not Attempted due to Medical Conditions or Safety Concerns. Eating (QC): 6 Toileting Hygiene (QC): 6 Toilet Transfer (QC): 6 (Pt utilizes FWW for ambulation, completes IND.) Other Treatment Pt ambulates to first floor to gift shop for IADL shopping/ navigation task. Pt requires min cues for trip down and min cues for return for navigation. Pt demonstrates good endurance and mobility with FWW, able to navigate through small areas safely without cues. Pt returns to recliner chair, states she is feeling very well and has not had any SOB for a while; states she is "breathing much better." Pt left in recliner with call light in reach, all needs met. Education OT Patient Education: Disease process, Purpose of tx/functional activities, Sa fety issues Teaching Recipient: Patient Teaching Methods: Demonstration, Discussion Response to Teaching: Verbalize Understanding, Return Demonstration OT Short Term Goals Short Term Goals Eating(FIM): 7 (met) Grooming(FIM): 7 Upper Body Dressing(FIM): 6 (met) Lower Body Dressing(FIM): 6 (met) Toilet/Commode Transfer(FIM): 6 (met) Additional Short Term Goals: 1-Demonstrate ADL Tasks, 2-Verbalize Understanding, 3-ImproveStrength/[place] 1=Demonstrate adherence to instructed precautions during ADL tasks. 2=Patient will verbalize/demonstrate understanding of assistive devices/modifications for ADL. 3=Patient will improve strength/tolerance for activity to enable patient to perform ADL's. OT [facility] Goals [employer] Goals Eating (QC): 6 (met) Oral Hygiene (QC): 6 (met) Shower/Bathe Self (QC): 6 (met) Upper Body Dressing (QC): 6 (met) Lower Body Dressing (QC): 6 (met) On/Off Footwear (QC): 6 (met) Toileting Hygiene (QC): 6 (met) Toilet/Commode Transfer (QC): 6 (met) Additional Goals: 1-Demonstrate ADL Tasks, 2-Verbalize Understanding, 3- ImproveStrength/[place] 1=Demonstrate adherence to instructed precautions during ADL tasks. 2=Patient will verbalize/demonstrate understanding of assistive devices/modifications for ADL. 3=Patient will improve strength/tolerance for activity to enable patient to perform ADL's. OT Education/Plan Problem List/Assessment Assessment: Decreased Activ Tolerance, Decreased UE Strength, Impaired I ADL's Discharge Recommendations Plan/Recommendations: Continue POC Equpiment Recommendations-D/C: None Treatment Plan/Plan of Care Treatment,Training & Education: Yes Patient would benefit from OT for education, treatment and training to promote independence in ADL's, mobility, safety and/or upper extremity function for ADL's. Plan of Care: ADL Retraining, Functional Mobility, Group Exercise/Act as Ind, UE Funct Exercise/Act Treatment Duration: Jun 24, 2019 Frequency: At least 5 of 7 days/Wk (IRF) Estimated Hrs Per Day: 1.5 hours per day Agreement: Yes Rehab Potential: Good Time/GCodes Start Time: 10:30 Stop Time: 11:00 Total Time Billed (hr/min): 30 Billed Treatment Time 1, ADL (10), FA (20)= 30 RAMIRO MAYS OTR Jun 14, 2019 11:07
--- NOTE | 2019-06-14 12:06 | Physical Therapy Daily Note ---
PT Daily Note-Current Subjective Pt sitting in recliner knitting upon arrival. Pt agrees to PT. Pain Location: No Pain Reported Mental Status Patient Orientation: Person, Place, Time, Situation Transfers SCALE: Activities may be completed with or without assistive devices. 6-Ppteandjea-ioppuyh completes the activity by him/herself with no assistance from a helper. 5-Set-up or Clean-up Assistance-helper sets up or cleans up; patient completes activity. [place] assists only prior to or following the activity. 4-Supervision or Touching Assistance-helper provides verbal cues and/or touching/steadying and/or contact guard assistance as patient completes activity. Assistance may be provided throughout the activity or intermittently. 3-Partial/Moderate Assistance-helper does LESS THAN HALF the effort. [place] lifts, holds or supports trunk or limbs, but provides less than half the effort. 2-Substantial/Maximal Assistance-helper does MORE THAN HALF the effort. [place] lifts or holds trunk or limbs and provides more than half the effort. 2-Dsuwaejwo-dfonvf does ALL the effort. Patient does none of the effort to complete the activity. Or, the assistance of 2 or more helpers is required for the patient to complete the activity. If activity was not attempted, code reason: 7-Patient Refused. 9-Not Applicable-not attempted and the patient did not perform the activity before the current illness, exacerbation or injury. 10-Not Attempted due to Environmental Limitations-(lack of equipment, weather restraints, etc.). 88-Not Attempted due to Medical Conditions or Safety Concerns. Transfers (B, C, W/C): 6 Roll Left to Right (QC): 6 Sit to Lying (QC): 6 Sit to Stand (QC): 6 Chair/Heu-bp-Hyfrj Xfer(QC): 6 Bed to/from Chair: 6 Weight Bearing Full Weight Bearing Full Weight Bearing Gait Training Does the Patient Walk?: Yes Gait: 6 Distance: 1000' Walk 10 feet (QC): 6 Walk 50 ft with 2 Turns(QC): 6 Walk 150 ft (QC): 6 Gait Persons Needed: 1 Gait Assistive Device: Walker 4 Wheeled Wheelchair Training Does the Pt Use a Wheelchair?: No Exercises NuStep Minutes: 15 NuStep Workload: 7 Treatments Pt transfers from recliner to standing then ambulates in hallway. Pt uses NuStep for 15m at WL 7. Pt then ambulates in hallway and on main floor of hospital. Pt takes a couple short standing RB as needed. Pt returns to ARU to use restroom and rest at end of Rx with all needs met, call light in hand. Assessment Current Status: Excellent Progress Pt tolerates Rx well. PT Short Term Goals Short Term Goals Time Frame: Jun 17, 2019 Gait Distance Comment: 300' SBA Gait Assistive Device: FWW PT Music Video Director Goals Care Home Goals PT Care Home Goals Time Frame: Jul 01, 2019 Sit to Lying (QC): 6 Lying-Sitting on Side/Bed(QC): 6 Sit to Stand (QC): 6 Roll Left to Right (QC): 6 Chair/Gec-wi-Zvvka Xfer(QC): 6 Car Transfer (QC): 6 Distance: 500' Walk 10 feet (QC): 6 Walk 10ft-Uneven Surface(QC): 6 Walk 50ft with 2 Turns (QC): 6 Walk 150 ft (QC): 6 Gait Assistive Device: Walker 4 Wheeled Does the Pt use WC or Scooter?: No # of Steps: 12 (SBA) 1 Step (curb) (QC): 4 4 Steps (QC): 4 12 Steps (QC): 4 Picking up an Object (QC): 6 PT Plan Problem List Problem List: Activity Tolerance Treatment/Plan Treatment Plan: Continue Plan of Care Treatment Plan: Education, Functional Activity [place], Functional Strength, Group Therapy, Gait, Safety, Therapeutic Exercise, Transfers Treatment Duration: Jun 10, 2019 Frequency: At least 5 of 7 days/Wk (IRF) Estimated Hrs Per Day: 1.5 hours per day Patient and/or Family Agrees t: Yes Safety Risks/Education Patient Education: Gait Training, Transfer Techniques, Correct Positioning, Safety Issues Teaching Recipient: Patient Teaching Methods: Discussion Response to Teaching: Verbalize Understanding Time/GCodes Time In: 1100 Time Out: 1200 Total Billed Treatment Time: 60 Total Billed Treatment 1, GT x2 (30m), EX (15m) & FA (15m) ARIAS DAVILA TOURIST ESCORT Jun 14, 2019 12:06 POS
--- NOTE | 2019-06-14 14:47 | Physical Therapy Daily Note ---
PT Daily Note-Current Subjective Pt sitting in recliner knitting upon arrival. Pt agrees to PT. Pain Location: No Pain Reported Mental Status Patient Orientation: Person, Place, Time, Situation Transfers SCALE: Activities may be completed with or without assistive devices. 1-Uuzhhwkjlc-ftqepdw completes the activity by him/herself with no assistance from a helper. 5-Set-up or Clean-up Assistance-helper sets up or cleans up; patient completes activity. [place] assists only prior to or following the activity. 4-Supervision or Touching Assistance-helper provides verbal cues and/or touching/steadying and/or contact guard assistance as patient completes activity. Assistance may be provided throughout the activity or intermittently. 3-Partial/Moderate Assistance-helper does LESS THAN HALF the effort. [place] lifts, holds or supports trunk or limbs, but provides less than half the effort. 2-Substantial/Maximal Assistance-helper does MORE THAN HALF the effort. [place] lifts or holds trunk or limbs and provides more than half the effort. 5-Ejcyagbxq-rzvnko does ALL the effort. Patient does none of the effort to complete the activity. Or, the assistance of 2 or more helpers is required for the patient to complete the activity. If activity was not attempted, code reason: 7-Patient Refused. 9-Not Applicable-not attempted and the patient did not perform the activity before the current illness, exacerbation or injury. 10-Not Attempted due to Environmental Limitations-(lack of equipment, weather restraints, etc.). 88-Not Attempted due to Medical Conditions or Safety Concerns. Transfers (B, C, W/C): 6 Roll Left to Right (QC): 6 Sit to Lying (QC): 6 Sit to Stand (QC): 6 Chair/Mbh-du-Cjgba Xfer(QC): 6 Bed to/from Chair: 6 Car Transfer (QC): 6 Weight Bearing Full Weight Bearing Full Weight Bearing Gait Training Does the Patient Walk?: Yes Gait: 6 Distance: 150', 250' Walk 10 feet (QC): 6 Walk 50 ft with 2 Turns(QC): 6 Walk 150 ft (QC): 6 Walking 10ft/uneven surface-QC: 6 Gait Persons Needed: 1 Gait Assistive Device: Walker 4 Wheeled Wheelchair Training Does the Pt Use a Wheelchair?: No Stair Training Stair Training: Handrails/: 2 handrails #of Steps: 12 1 Step (curb) (QC): 6 4 Steps (QC): 6 12 Steps (QC): 6 Stairs: Pattern: Step to Level of Assist: 6 Balance Picking up an Object (QC): 88 Special Test Comments 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 Treatments Pt transfers from recliner to standing. Pt completes QC scoring items this afternoon, see above. Pt returns to room to rest in recliner at end of Rx with all needs met, call light in hand. Assessment Current Status: Excellent Progress Pt tolerates Rx well. PT Short Term Goals Short Term Goals Time Frame: Jun 17, 2019 Gait Distance Comment: 300' SBA Gait Assistive Device: FWW PT Moving Worker Goals Moving Worker Goals PT Moving Worker Goals Time Frame: Jul 01, 2019 Sit to Lying (QC): 6 Lying-Sitting on Side/Bed(QC): 6 Sit to Stand (QC): 6 Roll Left to Right (QC): 6 Chair/Nmn-fe-Mjzpq Xfer(QC): 6 Car Transfer (QC): 6 Distance: 500' Walk 10 feet (QC): 6 Walk 10ft-Uneven Surface(QC): 6 Walk 50ft with 2 Turns (QC): 6 Walk 150 ft (QC): 6 Gait Assistive Device: Walker 4 Wheeled Does the Pt use WC or Scooter?: No # of Steps: 12 (SBA) 1 Step (curb) (QC): 4 4 Steps (QC): 4 12 Steps (QC): 4 Picking up an Object (QC): 6 PT Plan Problem List Problem List: Activity Tolerance Treatment/Plan Treatment Plan: Continue Plan of Care Treatment Plan: Education, Functional Activity [place], Functional Strength, Group Therapy, Gait, Safety, Therapeutic Exercise, Transfers Treatment Duration: Jun 10, 2019 Frequency: At least 5 of 7 days/Wk (IRF) Estimated Hrs Per Day: 1.5 hours per day Patient and/or Family Agrees t: Yes Safety Risks/Education Patient Education: Gait Training, Transfer Techniques, Steps, Correct Positioning, Safety Issues Teaching Recipient: Patient Teaching Methods: Discussion Response to Teaching: Verbalize Understanding Time/GCodes Time In: 1400 Time Out: 1430 Total Billed Treatment Time: 30 Total Billed Treatment 1, GT (15m) & FA (15m) ARIAS DAVILA MICROECONOMICS PROFESSOR Jun 14, 2019 14:47 POS
[2019-06-14 17:25] VITALS: BP 131/73
[2019-06-14 20:40] VITALS: BP 126/65
[2019-06-14] MEDS: SIMvastatin 10 MG (ZOCOR) TAB PO SCH (20:43)
[2019-06-14] MEDS: rOPINIRole 0.25 MG (REQUIP) TAB PO SCH (20:44)
[2019-06-14] MEDS: TEMAZEPAM 15 MG (RESTORIL) CAP PO PRN (22:29)
[2019-06-15 05:45] VITALS: BP 102/65
[2019-06-15] MEDS: MULTIVIT W/MINERALS TAB (THERAGRAN M) PO SCH (06:28)
[2019-06-15] MEDS: FERROUS SULF 325 MG (IRON) TAB PO SCH (06:28)
[2019-06-15] MEDS: CYANOCOBALAMIN 1,000 MCG (VITAMIN B-12) TABLET PO SCH (06:28)
[2019-06-15] MEDS: BIOTIN 10000 MCG PO SCH (06:28)
[2019-06-15] MEDS: LIPASE/AMYLASE/PROTEASE (PANCRELIPASE) 5,000 UNITS CAP PO SCH ×3 (06:29→17:14)
[2019-06-15] MEDS: predniSONE 20 MG TAB PO SCH (06:29)
[2019-06-15] MEDS: CALCIUM CARB + VIT D 600 MG (CALCARB + D) TAB PO SCH ×3 (06:29→17:14)
[2019-06-15] MEDS: SENNA W/DOCUSATE (SENOKOT S) TABLET PO SCH ×2 (08:25→21:26)
--- NOTE | 2019-06-15 08:37 | PM&R Progress Note ---
Subjective HPI/CC On Admission Date Seen by Provider: Jun 15, 2019 Time Seen by Provider: 08:[address] Carbone CC: Severe debility with MyastheniaGravis HPI: This is a pt who is being transferredfrom Med after and ICU coursefollowing klebsiella pneumoniaseptic shock, completed Meropenem and. extubated doing very well. 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 J Tube maintained for nutrition support and that did get replaced prior to transfer from since a piece had broken off when she was getting into the car to come to rehab She has been to rehab in the past and she usually runs low on minerals and B12 due to gastric bypass before. Her Hgb remains stable at 11.9 and her phosphorus was low but it was 2.4 today and creatinine remains normal at 0.6 She remains on Prednisone 40mg since she is tolerating her diet well.PLOF is use of walker at home and mostly independent with ADL's. Elliot Gutiérrez, MSIII: Barriers to discharge/return home: * Pneumonia has resolved, however she reports she remains SOB * Main concern for therapy is her endurance and SOB * Otherwise feels capable of going about her ADLs, has assistance from her at home. Looks forward to numerous family events next year. 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, continues to see for management * PE * L eye ptosis noted * On auscultation, heart RRR, lungs CTAB * Strength testing 5 for UE, LE * Patellar reflex present on L, not elicited on R * No deficits noted on exam of CN 7 * on testing of CN 3,4,6, noted L eye nystagmus when looking down and away Subjective/Events-last exam Albumin is 3.7 updated to patient She does follow that on a regular basis Tube feedings are performed on her own Overall feels like she is gaining strength and ready to go home soon Already had a bowel movement today Checked meds and labs 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 Review of Systems General: Fatigue Pulmonary: Dyspnea Objective Exam Vital Signs Vital Signs Date Time Temp Pulse Resp B/P (MAP) Pulse Ox O2 Delivery O2 Flow Rate FiO2 06/15/19 05:45 36.4 86 16 102/65 (77) 99 Room Air 10/26/19 18:00 2.00 Capillary Refill : General Appearance: No Apparent Distress, WD/WN, Chronically ill, Cachetic, Thin, Other (frail) HEENT: PERRL/EOMI, Normal ENT Inspection, Pharynx Normal, Moist Mucous Membranes Neck: Full Range of Motion, Normal Inspection, Non Tender, Supple Respiratory: Chest Non Tender, Lungs Clear, Normal Breath Sounds, No Accessory Muscle Use, No Respiratory Distress Cardiovascular: Regular Rate, Rhythm, No Edema, No Gallop, No JVD, No Murmur Gastrointestinal: Normal Bowel Sounds, No Organomegaly, No Pulsatile Mass, Non Tender, Soft Back: Normal Inspection, No CVA Tenderness, No Vertebral Tenderness Extremity: Normal Capillary Refill, Normal Inspection, Normal Range of Motion, Non Tender, No Calf Tenderness, No Pedal Edema Neurologic/Psychiatric: Alert, Oriented x3, No Motor/Sensory Deficits, Normal Mood/Affect, orthotic/prosthetic clinician II-XII Norm as Tested, Motor Weakness (generalized all extremities) Skin: Normal Color, Warm/Dry Lymphatic: No Adenopathy Results/Procedures Lab Patient resulted labs reviewed. FIM Transfers Therapy Code Descriptions/Definitions Functional [place] Measure: 0=Not Assessed/NA 4=Minimal Assistance 1=Total Assistance 5=Supervision or Setup 2=Maximal Assistance 6=Modified [place] 3=Moderate Assistance 7=Complete IndependenceSCALE: Activities may be completed with or without assistive devices. 6-Nxzicsjmig-twlviul completes the activity by him/herself with no assistance from a helper. 5-Set-up or Clean-up Assistance-helper sets up or cleans up; patient completes activity. [place] assists only prior to or following the activity. 4-Supervision or Touching Assistance-helper provides verbal cues and/or touching/steadying and/or contact guard assistance as patient completes activity. Assistance may be provided throughout the activity or intermittently. 3-Partial/Moderate Assistance-helper does LESS THAN HALF the effort. [place] lifts, holds or supports trunk or limbs, but provides less than half the effort. 2-Substantial/Maximal Assistance-helper does MORE THAN HALF the effort. [place] lifts or holds trunk or limbs and provides more than half the effort. 8-Grifzvgrv-zmodvq does ALL the effort. Patient does none of the effort to complete the activity. Or, the assistance of 2 or more helpers is required for the patient to complete the activity. If activity was not attempted, code reason: 7-Patient Refused. 9-Not Applicable-not attempted and the patient did not perform the activity before the current illness, exacerbation or injury. 10-Not Attempted due to Environmental Limitations-(lack of equipment, weather restraints, etc.). 88-Not Attempted due to Medical Conditions or Safety Concerns. Transfers (B, C, W/C) (FIM): 6 Roll Left to Right (QC): 6 Sit to Lying (QC): 6 Sit to Stand (QC): 6 Chair/Gtc-vx-Qdkds Xfer(QC): 6 Bed to/from Chair: 6 Car Transfer (QC): 6 Gait Training Does the Patient Walk?: Yes Gait (FIM): 6 Distance (FIM): 3=150 ft Distance: 150', 250' Walk 10 feet (QC): 6 Walk 50 ft with 2 Turns(QC): 6 Walk 150 ft (QC): 6 Walking 10ft/uneven surface-QC: 6 Gait Persons Needed: 1 Gait Assistive Device: Walker 4 Wheeled Wheelchair Training Does the Pt Use a Wheelchair?: No Stair Training Stair Training: Handrails/: 2 handrails #of Steps: 12 1 Step (curb) (QC): 6 4 Steps (QC): 6 12 Steps (QC): 6 Stairs: Pattern: Step to Level of Assist: 6 Balance Picking up an Object (QC): 88 ADL-Treatment Eating (QC): 6 Oral Hygiene (QC): 6 (Pt completes standing at sink, supports self with sink. ) Shower/Bathe Self (QC): 6 (Pt completes shower transfer and showering on shower chair with IND. ) Upper Body Dressing (QC): 6 (Completes in chair.) Lower Body Dressing (QC): 6 (Completes on shower chair, IND.) On/Off Footwear (QC): 6 (Completes while sitting) Toileting Hygiene (QC): 6 Toilet Transfer (QC): 6 (Pt utilizes FWW for ambulation, completes IND.) Assessment/Plan Assessment and Plan Assess & Plan/Chief Complaint Assessment: MG s/p vent dependency s/p Klebsiella pneumoniae Osteonecrosis of the jaw hx Gastric bypass hx Vitamin deficiency Chronic diarrhea Malabsorption Acute on chronic migraine Plan: Home meds IRF protocol Checked meds Migraine treatment Monitor pain DC planning (1) Myasthenia gravis Status: Acute (2) S/P gastric bypass (3) Malnutrition (4) B12 deficiency (5) History of ventilator dependency (6) Klebsiella pneumonia (7) Osteonecrosis of jaw (8) Gastrointestinal tube present Status: Acute JESSE PHILLIPS DO Jun 15, 2019 08:37 POS
[2019-06-15] MEDS: PYRIDOSTIGMINE 60 MG TAB (MESTINON) NON-FORMULARY PO SCH ×3 (08:50→21:25)
[2019-06-15] MEDS: PYRIDOXINE (VITAMIN B-6) 50 MG TABLET PO SCH (08:51)
[2019-06-15] MEDS: DULoxetine 30 MG (CYMBALTA) CAP PO SCH (08:51)
[2019-06-15] MEDS: SPIRONOLACTONE 25 MG (ALDACTONE) TAB PO SCH (08:52)
[2019-06-15] MEDS: MELOXICAM 7.5 MG (MOBIC) TABLET PO SCH (08:52)
[2019-06-15] MEDS: PANTOPRAZOLE 40 MG (PROTONIX) TAB PO SCH (08:52)
[2019-06-15] MEDS: CARVEDILOL 3.125 MG (COREG) TABLET PO SCH ×2 (08:52→21:23)
[2019-06-15] MEDS: GABAPENTIN 300 MG (NEURONTIN) CAP PO SCH ×4 (08:52→21:23)
[2019-06-15] MEDS: VITAMIN D3 5,000 UNITS (CHOLECALCIFEROL ) CAPSULE PO SCH (08:58)
--- NOTE | 2019-06-15 09:23 | Progress Note ---
ADRYAN CARRILLO MED STUDENT 06/15/19 0923: Progress Note CC: debilitation following treatment for aspiration pneumonia * Vitals: HR 86, RR 16, BP 102/65 * No complaints today. Woke her up to speak to her, fell back asleep several times during interview. * Feels her endurance is improving. * Feels her double vision is improving since IVIG treatment. * Nursing reports she will walk around outside her room on her own. * Lungs CTAB, Heart RRR, no murmurs or gallops BRENDA PHILLIPS DO 06/15/1926: Supervisory-Addendum Brief Verification & Attestation Participated in pt care: history, MDM, physical Personally performed: exam, history, MDM, supervision of care Care discussed with: Medical Student Procedures: n/a Results interpretation: Verified all documentation Verification and Attestation of Medical Student E/M Service A medical student performed and documented this service in my presence. I reviewed and verified all information documented by the medical student and made modifications to such information, when appropriate. I personally performed the physical exam and medical decision making. Brenda Phillips, Jun 15, 2019,09:25 ADRYAN CARRILLO MED STUDENT Jun 15, 2019 09:23 BRENDA SAUCEDO DO Jun 15, 2019 09:25 POS
--- NOTE | 2019-06-15 09:38 | Occupational Ther Daily Note ---
OT Current Status-Daily Note Subjective Pt seen in bed, pt states no pain but that she did not sleep well previous night. Pt agreeable to OT tx session. Mental Status/Objective Patient Orientation: Normal For Age ADL-Treatment Therapy Code Descriptions/Definitions Functional [place] Measure: 0=Not Assessed/NA 4=Minimal Assistance 1=Total Assistance 5=Supervision or Setup 2=Maximal Assistance 6=Modified [place] 3=Moderate Assistance 7=Complete IndependenceSCALE: Activities may be completed with or without assistive devices. 1-Ayuibjdgrp-hrqmgcu completes the activity by him/herself with no assistance from a helper. 5-Set-up or Clean-up Assistance-helper sets up or cleans up; patient completes activity. [place] assists only prior to or following the activity. 4-Supervision or Touching Assistance-helper provides verbal cues and/or touching/steadying and/or contact guard assistance as patient completes activity. Assistance may be provided throughout the activity or intermittently. 3-Partial/Moderate Assistance-helper does LESS THAN HALF the effort. [place] lifts, holds or supports trunk or limbs, but provides less than half the effort. 2-Substantial/Maximal Assistance-helper does MORE THAN HALF the effort. [place] lifts or holds trunk or limbs and provides more than half the effort. 7-Clssntthh-dsccal does ALL the effort. Patient does none of the effort to complete the activity. Or, the assistance of 2 or more helpers is required for the patient to complete the activity. If activity was not attempted, code reason: 7-Patient Refused. 9-Not Applicable-not attempted and the patient did not perform the activity before the current illness, exacerbation or injury. 10-Not Attempted due to Environmental Limitations-(lack of equipment, weather restraints, etc.). 88-Not Attempted due to Medical Conditions or Safety Concerns. Eating (QC): 6 (Pt s/u drink, IND.) Oral Hygiene (QC): 6 (Completes with SBA at sink) Shower/Bathe Self (QC): 6 (Completes with IND on shower chair, good safety awareness.) Upper Body Dressing (QC): 6 (Pt gathers clothing items, able to complete standing in shower with good dynamic balance.) Lower Body Dressing (QC): 6 (Completes on shower chair/ standing in shower, IND.) Toileting Hygiene (QC): 6 Toilet Transfer (QC): 6 (Pt demonstrates IND with transfer, utilizes FWW for ambulation and controlled sit without use of grab bars ) On/ off footwear QC: 6, IND. Other Treatment Pt states she feels strong today, but tired. Pt completes ADLs in room. Pt sits in recliner chair, pt directs treatment of tube dressing, demonstrates good competence of health and advocacy of needs. Pt sit to stand with IND, utilizes FWW for ambulation to washer/ dryer. Pt completes laundry routine with SUP; pt states she will be completing cooking and cleaning tasks and agrees she will benefit from continued education and training of endurance and strengthening of UE for IADL/ ADL tasks. Pt educated on energy conservation techniques to utilize within the home. Pt sits EOM, completes UE exercises to focus on education of home exercise program for continued strengthening and endurance at home within comfortable range with skilled cues. Pt completes shoulder flexion, bicep curls, trunk twists, and shoulder abduction exercises (30 reps, 2 sets) to encourage UE endurance. Pt educated on items to use throughout home for endurance and strength training; pt demonstrates understanding. Pt completes with no SOB. Pt completes UE theraband exercises within recliner chair in room to further focus on HEP. Pt requires moderate cues for theraband use and correct placement. Pt left in recliner chair with call light in reach and all needs met. Education OT Patient Education: Correct positioning, Energy conservation, Exercise program, Home exercise program, Progress toward Goal/Update tx plan, Purpose of tx/functional activities, Rehab process Teaching Recipient: Patient Teaching Methods: Demonstration, Discussion Response to Teaching: Verbalize Understanding, Return Demonstration, Reinforcement Needed OT Short Term Goals Short Term Goals Eating(FIM): 7 (met) Grooming(FIM): 7 Upper Body Dressing(FIM): 6 (met) Lower Body Dressing(FIM): 6 (met) Toilet/Commode Transfer(FIM): 6 (met) Additional Short Term Goals: 1-Demonstrate ADL Tasks, 2-Verbalize Understanding, 3-ImproveStrength/[place] 1=Demonstrate adherence to instructed precautions during ADL tasks. 2=Patient will verbalize/demonstrate understanding of assistive devices/modifications for ADL. 3=Patient will improve strength/tolerance for activity to enable patient to perform ADL's. OT Halfway Goals Halfway Goals Eating (QC): 6 (met) Oral Hygiene (QC): 6 (met) Shower/Bathe Self (QC): 6 (met) Upper Body Dressing (QC): 6 (met) Lower Body Dressing (QC): 6 (met) On/Off Footwear (QC): 6 (met) Toileting Hygiene (QC): 6 (met) Toilet/Commode Transfer (QC): 6 (met) Additional Goals: 1-Demonstrate ADL Tasks, 2-Verbalize Understanding, 3- ImproveStrength/[place] 1=Demonstrate adherence to instructed precautions during ADL tasks. 2=Patient will verbalize/demonstrate understanding of assistive devices/modifications for ADL. 3=Patient will improve strength/tolerance for activity to enable patient to perform ADL's. OT Education/Plan Problem List/Assessment Assessment: Decreased Activ Tolerance, Decreased UE Strength, Impaired I ADL's, Restricted Funct UE ROM Discharge Recommendations Plan/Recommendations: Continue POC Treatment Plan/Plan of Care Treatment,Training & Education: Yes Patient would benefit from OT for education, treatment and training to promote independence in ADL's, mobility, safety and/or upper extremity function for ADL's. Plan of Care: ADL Retraining, Functional Mobility, Group Exercise/Act as Ind, UE Funct Exercise/Act Treatment Duration: Jun 24, 2019 Frequency: At least 5 of 7 days/Wk (IRF) Estimated Hrs Per Day: 1.5 hours per day Agreement: Yes Rehab Potential: Good Time/GCodes Start Time: 08:00 Stop Time: 09:30 Total Time Billed (hr/min): 90 Billed Treatment Time 1, ADLx3 (45), FA (15), EXx2 (30) RAMIRO MAYS OTR Jun 15, 2019 09:38 POS
--- NOTE | 2019-06-15 10:58 | Physical Therapy Daily Note ---
PT Daily Note-Current Subjective Pt. agrees to Rx. States she feels confident to have survived this and now knows more about MG now. Pt. is anxious to go home but will take it easier. Pain Location: No Pain Reported Mental Status Patient Orientation: Normal For Age Transfers SCALE: Activities may be completed with or without assistive devices. 4-Kngamrsquj-drietll completes the activity by him/herself with no assistance from a helper. 5-Set-up or Clean-up Assistance-helper sets up or cleans up; patient completes activity. [place] assists only prior to or following the activity. 4-Supervision or Touching Assistance-helper provides verbal cues and/or touching/steadying and/or contact guard assistance as patient completes activity. Assistance may be provided throughout the activity or intermittently. 3-Partial/Moderate Assistance-helper does LESS THAN HALF the effort. [place] lifts, holds or supports trunk or limbs, but provides less than half the effort. 2-Substantial/Maximal Assistance-helper does MORE THAN HALF the effort. [place] lifts or holds trunk or limbs and provides more than half the effort. 3-Hmuuukbpd-bnxagg does ALL the effort. Patient does none of the effort to complete the activity. Or, the assistance of 2 or more helpers is required for the patient to complete the activity. If activity was not attempted, code reason: 7-Patient Refused. 9-Not Applicable-not attempted and the patient did not perform the activity before the current illness, exacerbation or injury. 10-Not Attempted due to Environmental Limitations-(lack of equipment, weather restraints, etc.). 88-Not Attempted due to Medical Conditions or Safety Concerns. Transfers (B, C, W/C): 6 Roll Left to Right (QC): 6 Sit to Lying (QC): 6 Sit to Stand (QC): 6 Chair/Ady-kl-Pasvp Xfer(QC): 6 Bed to/from Chair: 6 Car Transfer (QC): 6 Weight Bearing Full Weight Bearing Full Weight Bearing Gait Training Does the Patient Walk?: Yes Gait: 6 Walk 10 feet (QC): 6 Walk 50 ft with 2 Turns(QC): 6 Walk 150 ft (QC): 6 Walking 10ft/uneven surface-QC: 6 Gait Persons Needed: 0 Gait Assistive Device: Walker 4 Wheeled Stair Training Stair Training: Handrails/: 2 handrails #of Steps: 12 1 Step (curb) (QC): 6 4 Steps (QC): 6 12 Steps (QC): 6 Stairs: Pattern: Step to Level of Assist: 6 Exercises Supine Ex: Bridging, Ankle pumps, Quad Set, Rolling, Glut sets, Heel Slides, Short Arc Quads, Scooting, Straight leg raise, Hip abd/add Supine Reps: 20 Seated Therapy Exercises: Ankle pumps, Sit to stand, Long arc quads, Hip flexion, Hip abd/add Seated Reps: 20 NuStep Minutes: 15 NuStep Workload: 6 Assessment Current Status: Excellent Progress PT Short Term Goals Short Term Goals Time Frame: Jun 17, 2019 Gait Distance Comment: 300' SBA Gait Assistive Device: FWW PT [facility] Goals [facility] Goals PT Glue Specialty Supervisor Goals Time Frame: Jul 01, 2019 Sit to Lying (QC): 6 Lying-Sitting on Side/Bed(QC): 6 Sit to Stand (QC): 6 Roll Left to Right (QC): 6 Chair/Qlx-sj-Gblgi Xfer(QC): 6 Car Transfer (QC): 6 Distance: 500' Walk 10 feet (QC): 6 Walk 10ft-Uneven Surface(QC): 6 Walk 50ft with 2 Turns (QC): 6 Walk 150 ft (QC): 6 Gait Assistive Device: Walker 4 Wheeled Does the Pt use WC or Scooter?: No # of Steps: 12 (SBA) 1 Step (curb) (QC): 4 4 Steps (QC): 4 12 Steps (QC): 4 Picking up an Object (QC): 6 PT Plan Treatment/Plan Treatment Plan: Continue Plan of Care Treatment Plan: Education, Functional Activity [place], Functional Strength, Group Therapy, Gait, Safety, Therapeutic Exercise, Transfers Treatment Duration: Jun 10, 2019 Frequency: At least 5 of 7 days/Wk (IRF) Estimated Hrs Per Day: 1.5 hours per day Patient and/or Family Agrees t: Yes Safety Risks/Education Patient Education: Gait Training, Transfer Techniques, Steps, Correct Positioning, Disease Process, Safety Issues Teaching Recipient: Patient Teaching Methods: Demonstration, Discussion Response to Teaching: Verbalize Understanding, Return Demonstration, Reinforcement Needed Time/GCodes Time In: 930 Time Out: 1100 Total Billed Treatment Time: 90 Total Billed Treatment 1,FA30m,EX30m,GT30m LATISHA CAVANAUGH WATER PURIFICATION CHEMIST Jun 15, 2019 10:58 POS
[2019-06-15 18:00] VITALS: BP 110/72
[2019-06-15] MEDS: TEMAZEPAM 15 MG (RESTORIL) CAP PO PRN (21:23)
[2019-06-15] MEDS: SIMvastatin 10 MG (ZOCOR) TAB PO SCH (21:23)
[2019-06-15] MEDS: rOPINIRole 0.25 MG (REQUIP) TAB PO SCH (21:23)
[2019-06-16 05:54] VITALS: BP 108/65
[2019-06-16] MEDS: BIOTIN 10000 MCG PO SCH (06:46)
[2019-06-16] MEDS: LIPASE/AMYLASE/PROTEASE (PANCRELIPASE) 5,000 UNITS CAP PO SCH ×3 (06:47→18:01)
[2019-06-16] MEDS: CALCIUM CARB + VIT D 600 MG (CALCARB + D) TAB PO SCH ×3 (06:47→18:00)
[2019-06-16] MEDS: MULTIVIT W/MINERALS TAB (THERAGRAN M) PO SCH (06:47)
[2019-06-16] MEDS: FERROUS SULF 325 MG (IRON) TAB PO SCH (06:47)
[2019-06-16] MEDS: predniSONE 20 MG TAB PO SCH (06:48)
[2019-06-16] MEDS: CYANOCOBALAMIN 1,000 MCG (VITAMIN B-12) TABLET PO SCH (06:48)
--- NOTE | 2019-06-16 08:48 | Occupational Ther Daily Note ---
OT Current Status-Daily Note Subjective Pt seen in bed, pt states no pain but discomfort/ "dull ache" through L abdomen due to tube. Pt agreeable to OT session. Mental Status/Objective Patient Orientation: Normal For Age ADL-Treatment Therapy Code Descriptions/Definitions Functional [place] Measure: 0=Not Assessed/NA 4=Minimal Assistance 1=Total Assistance 5=Supervision or Setup 2=Maximal Assistance 6=Modified [place] 3=Moderate Assistance 7=Complete IndependenceSCALE: Activities may be completed with or without assistive devices. 2-Vloailjzxb-ygspnbj completes the activity by him/herself with no assistance from a helper. 5-Set-up or Clean-up Assistance-helper sets up or cleans up; patient completes activity. [place] assists only prior to or following the activity. 4-Supervision or Touching Assistance-helper provides verbal cues and/or touching/steadying and/or contact guard assistance as patient completes activity. Assistance may be provided throughout the activity or intermittently. 3-Partial/Moderate Assistance-helper does LESS THAN HALF the effort. [place] lif ts, holds or supports trunk or limbs, but provides less than half the effort. 2-Substantial/Maximal Assistance-helper does MORE THAN HALF the effort. [place] lifts or holds trunk or limbs and provides more than half the effort. 1-Bsjvceryg-kllkga does ALL the effort. Patient does none of the effort to complete the activity. Or, the assistance of 2 or more helpers is required for the patient to complete the activity. If activity was not attempted, code reason: 7-Patient Refused. 9-Not Applicable-not attempted and the patient did not perform the activity before the current illness, exacerbation or injury. 10-Not Attempted due to Environmental Limitations-(lack of equipment, weather restraints, etc.). 88-Not Attempted due to Medical Conditions or Safety Concerns. Eating (QC): 6 (drinks from straw) Oral Hygiene (QC): 6 (Pt completes ) Shower/Bathe Self (QC): 6 (Completes sponge bath EOB with good endurance and ROM, able to wash all areas with IND.) Upper Body Dressing (QC): 6 (Pt completes EOB with IND.) Lower Body Dressing (QC): 6 (Pt gathers clothing and completes undergarment donning while standing with good dynamic standing balance and dons pants sitting EOB with IND) Toileting Hygiene (QC): 6 Toilet Transfer (QC): 6 (No use of grab bars, IND.) Other Treatment Pt completes ADLs in room. Pt completes arm bike for 10 minutes with minimal resistance (~20 watt) and 5 minutes of moderate (35 watt) resistance. Pt completes with no SOB and increased endurance. Pt completes UE exercises to address strength and endurance EOM, completes wrist flexion, wrist extension, pronation/ supination, bicep curls, trunk rotations, and external rotations with 3# weights bilaterally; pt completes 3 sets of 15 reps. Pt educated on energy conservation usages during work and home, pt demonstrates understanding. Pt returns to bedroom, makes bed with good dynamic balance, no use of AE. Pt left in recliner chair, call light in reach, all needs met. Education OT Patient Education: Correct positioning, Energy conservation, Exercise program, Home exercise program, Progress toward Goal/Update tx plan, Purpose of tx/functional activities, Rehab process, Safety issues Teaching Recipient: Patient Teaching Methods: Demonstration, Discussion Response to Teaching: Verbalize Understanding, Return Demonstration OT Short Term Goals Short Term Goals Eating(FIM): 7 (met) Grooming(FIM): 7 (met) Upper Body Dressing(FIM): 6 (met) Lower Body Dressing(FIM): 6 (met) Toilet/Commode Transfer(FIM): 6 (met) Additional Short Term Goals: 1-Demonstrate ADL Tasks, 2-Verbalize Understanding, 3-ImproveStrength/[place] 1=Demonstrate adherence to instructed precautions during ADL tasks. 2=Patient will verbalize/demonstrate understanding of assistive devices/modifications for ADL. 3=Patient will improve strength/tolerance for activity to enable patient to perform ADL's. OT Fdc Goals Fdc Goals Eating (QC): 6 (met) Oral Hygiene (QC): 6 (met) Shower/Bathe Self (QC): 6 (met) Upper Body Dressing (QC): 6 (met) Lower Body Dressing (QC): 6 (met) On/Off Footwear (QC): 6 (met) Toileting Hygiene (QC): 6 (met) Toilet/Commode Transfer (QC): 6 (met) Additional Goals: 1-Demonstrate ADL Tasks, 2-Verbalize Understanding, 3- ImproveStrength/[place] 1=Demonstrate adherence to instructed precautions during ADL tasks. 2=Patient will verbalize/demonstrate understanding of assistive devices/modifications for ADL. 3=Patient will improve strength/tolerance for activity to enable patient to perform ADL's. OT Education/Plan Problem List/Assessment Assessment: Decreased Activ Tolerance, Decreased UE Strength, Impaired I ADL's, Restricted Funct UE ROM Discharge Recommendations Plan/Recommendations: Continue POC Equpiment Recommendations-D/C: None Treatment Plan/Plan of Care Treatment,Training & Education: Yes Patient would benefit from OT for education, treatment and training to promote independence in ADL's, mobility, safety and/or upper extremity function for ADL's. Plan of Care: ADL Retraining, Functional Mobility, Group Exercise/Act as Ind, UE Funct Exercise/Act Treatment Duration: Jun 24, 2019 Frequency: At least 5 of 7 days/Wk (IRF) Estimated Hrs Per Day: 1.5 hours per day Agreement: Yes Rehab Potential: Good Time/GCodes Start Time: 08:00 Stop Time: 09:30 Total Time Billed (hr/min): 90 Billed Treatment Time 1, ADL 3(45), EX 3(45)= 90 RAMIRO MAYS OTR Jun 16, 2019 08:48 POS
--- NOTE | 2019-06-16 09:08 | PM&R Progress Note ---
Subjective HPI/CC On Admission Date Seen by Provider: Jun 16, 2019 Time Seen by Provider: 08:[address] Carbone CC: Severe debility with MyastheniaGravis HPI: This is a pt who is being transferredfrom Med after and ICU coursefollowing klebsiella pneumoniaseptic shock, completed Meropenem and. extubated doing very well. 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 J Tube maintained for nutrition support and that did get replaced prior to transfer from since a piece had broken off when she was getting into the car to come to rehab She has been to rehab in the past and she usually runs low on minerals and B12 due to gastric bypass before. Her Hgb remains stable at 11.9 and her phosphorus was low but it was 2.4 today and creatinine remains normal at 0.6 She remains on Prednisone 40mg since she is tolerating her diet well.PLOF is use of walker at home and mostly independent with ADL's. Elliot Gutiérrez, MSIII: Barriers to discharge/return home: * Pneumonia has resolved, however she reports she remains SOB * Main concern for therapy is her endurance and SOB * Otherwise feels capable of going about her ADLs, has assistance from her at home. Looks forward to numerous family events next year. 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, continues to see for management * PE * L eye ptosis noted * On auscultation, heart RRR, lungs CTAB * Strength testing 5 for UE, LE * Patellar reflex present on L, not elicited on R * No deficits noted on exam of CN 7 * on testing of CN 3,4,6, noted L eye nystagmus when looking down and away Subjective/Events-last exam Pt doing extremely well Stronger since admit Pegtube is leaking so will ask Dr. Estrada to evaluate that today Due to pegtube dysfunction that is delaying DC but we need to be sure that is functioning properly before she goes home because she has tube feedings at night and her nutrition status is 3.7 actually replaced the pegtube because it broke off right before she was transferred from to rehab Appreciate Dr. Estrada Checked meds and labs Conferred with title clerk therapy notes Review of Systems General: Fatigue Objective Exam Vital Signs Vital Signs Date Time Temp Pulse Resp B/P (MAP) Pulse Ox O2 Delivery O2 Flow Rate FiO2 06/16/19 09:00 Room Air 06/16/19 05:54 36.4 98 18 108/65 (79) 96 06/12/19 18:00 2.00 Capillary Refill : General Appearance: No Apparent Distress, WD/WN, Chronically ill, Cachetic, Thin, Other (frail) HEENT: PERRL/EOMI, Normal ENT Inspection, Pharynx Normal, Moist Mucous Membra estefani Neck: Full Range of Motion, Normal Inspection, Non Tender, Supple Respiratory: Chest Non Tender, Lungs Clear, Normal Breath Sounds, No Accessory Muscle Use, No Respiratory Distress Cardiovascular: Regular Rate, Rhythm, No Edema, No Gallop, No JVD, No Murmur Gastrointestinal: Normal Bowel Sounds, No Organomegaly, No Pulsatile Mass, Non Tender, Soft Back: Normal Inspection, No CVA Tenderness, No Vertebral Tenderness Extremity: Normal Capillary Refill, Normal Inspection, Normal Range of Motion, Non Tender, No Calf Tenderness, No Pedal Edema Neurologic/Psychiatric: Alert, Oriented x3, No Motor/Sensory Deficits, Normal Mood/Affect, staff nurse midwife II-XII Norm as Tested, Motor Weakness (generalized all extremities) Skin: Normal Color, Warm/Dry Lymphatic: No Adenopathy Results/Procedures Lab Patient resulted labs reviewed. FIM Transfers Therapy Code Descriptions/Definitions Functional [place] Measure: 0=Not Assessed/NA 4=Minimal Assistance 1=Total Assistance 5=Supervision or Setup 2=Maximal Assistance 6=Modified [place] 3=Moderate Assistance 7=Complete IndependenceSCALE: Activities may be completed with or without assistive devices. 9-Oenzaegfie-vvqcyvs completes the activity by him/herself with no assistance from a helper. 5-Set-up or Clean-up Assistance-helper sets up or cleans up; patient completes activity. [place] assists only prior to or following the activity. 4-Supervision or Touching Assistance-helper provides verbal cues and/or touching/steadying and/or contact guard assistance as patient completes activity. Assistance may be provided throughout the activity or intermittently. 3-Partial/Moderate Assistance-helper does LESS THAN HALF the effort. [place] lifts, holds or supports trunk or limbs, but provides less than half the effort. 2-Substantial/Maximal Assistance-helper does MORE THAN HALF the effort. [place] lifts or holds trunk or limbs and provides more than half the effort. 4-Dgpjjnwxe-vynagr does ALL the effort. Patient does none of the effort to complete the activity. Or, the assistance of 2 or more helpers is required for the patient to complete the activity. If activity was not attempted, code reason: 7-Patient Refused. 9-Not Applicable-not attempted and the patient did not perform the activity before the current illness, exacerbation or injury. 10-Not Attempted due to Environmental Limitations-(lack of equipment, weather restraints, etc.). 88-Not Attempted due to Medical Conditions or Safety Concerns. Transfers (B, C, W/C) (FIM): 6 Roll Left to Right (QC): 6 Sit to Lying (QC): 6 Sit to Stand (QC): 6 Chair/Amu-dj-Mpxwk Xfer(QC): 6 Bed to/from Chair: 6 Car Transfer (QC): 6 Gait Training Does the Patient Walk?: Yes Gait (FIM): 6 Distance (FIM): 3=150 ft Distance: 150', 250' Walk 10 feet (QC): 6 Walk 50 ft with 2 Turns(QC): 6 Walk 150 ft (QC): 6 Walking 10ft/uneven surface-QC: 6 Gait Persons Needed: 0 Gait Assistive Device: Walker 4 Wheeled Wheelchair Training Does the Pt Use a Wheelchair?: No Stair Training Stair Training: Handrails/: 2 handrails #of Steps: 12 1 Step (curb) (QC): 6 4 Steps (QC): 6 12 Steps (QC): 6 Stairs: Pattern: Step to Level of Assist: 6 Balance Picking up an Object (QC): 88 ADL-Treatment Eating (QC): 6 Oral Hygiene (QC): 6 (Pt completes ) Shower/Bathe Self (QC): 6 Upper Body Dressing (QC): 6 Lower Body Dressing (QC): 6 On/Off Footwear (QC): 6 (Completes while sitting) Toileting Hygiene (QC): 6 Toilet Transfer (QC): 6 Assessment/Plan Assessment and Plan Assess & Plan/Chief Complaint Assessment: MG s/p vent dependency s/p Klebsiella pneumoniae Osteonecrosis of the jaw hx Gastric bypass hx Vitamin deficiency Chronic diarrhea Malabsorption Acute on chronic migraine PEG dysfunction consulting Dr Estrada Plan: Home meds IRF protocol Checked meds Migraine treatment Monitor pain DC planning Appreciate Dr Estrada (1) Myasthenia gravis Status: Acute (2) S/P gastric bypass (3) Malnutrition (4) B12 deficiency (5) History of ventilator dependency (6) Klebsiella pneumonia (7) Osteonecrosis of jaw (8) Gastrointestinal tube present Status: Acute JESSE PHILLIPS DO Jun 16, 2019 09:08 POS
[2019-06-16] MEDS: SENNA W/DOCUSATE (SENOKOT S) TABLET PO SCH ×2 (09:45→21:47)
[2019-06-16] MEDS: PYRIDOSTIGMINE 60 MG TAB (MESTINON) NON-FORMULARY PO SCH ×3 (09:45→21:30)
[2019-06-16] MEDS: PANTOPRAZOLE 40 MG (PROTONIX) TAB PO SCH (09:56)
[2019-06-16] MEDS: MELOXICAM 7.5 MG (MOBIC) TABLET PO SCH (09:56)
[2019-06-16] MEDS: DULoxetine 30 MG (CYMBALTA) CAP PO SCH (09:57)
[2019-06-16] MEDS: SPIRONOLACTONE 25 MG (ALDACTONE) TAB PO SCH (09:57)
[2019-06-16] MEDS: PYRIDOXINE (VITAMIN B-6) 50 MG TABLET PO SCH (09:57)
[2019-06-16] MEDS: CARVEDILOL 3.125 MG (COREG) TABLET PO SCH ×2 (09:57→21:28)
[2019-06-16] MEDS: VITAMIN D3 5,000 UNITS (CHOLECALCIFEROL ) CAPSULE PO SCH (09:57)
[2019-06-16] MEDS: GABAPENTIN 300 MG (NEURONTIN) CAP PO SCH ×4 (09:57→21:29)
--- NOTE | 2019-06-16 09:57 | Progress Note ---
ADRYAN CARRILLO MED STUDENT 06/16/19 0957: Progress Note CC: debilitation following treatment for aspiration pneumonia * Vitals: HR 98, RR 18, BP 108/65 * She reports leakage from her J-tube last night, nursing describes grayish discharge on dressings, dressings were changed and were dry when I saw her this morning. Dr. Estrada has been consulted. * She reports she is doing well, she is able to walk without accompaniment and has no worries about her ability to go about her ADLs at home. * No recurrence of migraines * Feels her double vision has improved slightly and that her voice is stronger since IVIG treatment. * Denies fevers/chills, congestion, cough, SOB, CP, palpitations, N/V, abdominal pain, constipation, diarrhea, dysuria, hematuria, paresthesias, numbness or tingling * Reports that she has nerve damage in her R leg from back surgery, that sometimes causes pain or numbness in that leg, but has not had any issues recently * Lungs CTAB, Heart RRR, no murmurs or gallops * 2+ pedal pulses, no calf tenderness on palpation, no LE edema BRENDA PHILLIPS DO 06/16/19 1641: Supervisory-Addendum Brief Verification & Attestation Participated in pt care: history, MDM, physical Personally performed: exam, history, MDM, supervision of care Care discussed with: Medical Student Procedures: n/a Results interpretation: Verified all documentation Verification and Attestation of Medical Student E/M Service A medical student performed and documented this service in my presence. I reviewed and verified all information documented by the medical student and made modifications to such information, when appropriate. I personally performed the physical exam and medical decision making. Brenda Phillips, Jun 16, 2019,16:41 ADRYAN CARRILLO MED STUDENT Jun 16, 2019 09:57 BRENDA SAUCEDO DO Jun 16, 2019 16:41 POS
--- NOTE | 2019-06-16 10:49 | Physical Therapy Daily Note ---
PT Daily Note-Current Subjective Pt. states she feels ready to go home. Pain Location: No Pain Reported Mental Status Patient Orientation: Normal For Age Transfers SCALE: Activities may be completed with or without assistive devices. 0-Golnwrzlfe-mdmyajp completes the activity by him/herself with no assistance from a helper. 5-Set-up or Clean-up Assistance-helper sets up or cleans up; patient completes activity. [place] assists only prior to or following the activity. 4-Supervision or Touching Assistance-helper provides verbal cues and/or touching/steadying and/or contact guard assistance as patient completes activity. Assistance may be provided throughout the activity or intermittently. 3-Partial/Moderate Assistance-helper does LESS THAN HALF the effort. [place] lifts, holds or supports trunk or limbs, but provides less than half the effort. 2-Substantial/Maximal Assistance-helper does MORE THAN HALF the effort. [place] lifts or holds trunk or limbs and provides more than half the effort. 3-Lsmwmxmzo-futrsr does ALL the effort. Patient does none of the effort to complete the activity. Or, the assistance of 2 or more helpers is required for the patient to complete the activity. If activity was not attempted, code reason: 7-Patient Refused. 9-Not Applicable-not attempted and the patient did not perform the activity before the current illness, exacerbation or injury. 10-Not Attempted due to Environmental Limitations-(lack of equipment, weather restraints, etc.). 88-Not Attempted due to Medical Conditions or Safety Concerns. Transfers (B, C, W/C): 6 Roll Left to Right (QC): 6 Sit to Lying (QC): 6 Sit to Stand (QC): 6 Chair/Kcy-gd-Felut Xfer(QC): 6 Bed to/from Chair: 6 Car Transfer (QC): 6 Weight Bearing Full Weight Bearing Full Weight Bearing Gait Training Does the Patient Walk?: Yes Gait: 6 Walk 10 feet (QC): 6 Walk 50 ft with 2 Turns(QC): 6 Walk 150 ft (QC): 6 Walking 10ft/uneven surface-QC: 6 Gait Persons Needed: 0 Gait Assistive Device: Walker 4 Wheeled up ad lauren Stair Training Stair Training: Handrails/: 2 handrails #of Steps: 12 1 Step (curb) (QC): 6 4 Steps (QC): 6 12 Steps (QC): 6 Level of Assist: 6 reciprocates ascending and step to going down Balance Picking up an Object (QC): 6 Exercises NuStep Minutes: 15 NuStep Workload: 6 Assessment Current Status: Excellent Progress meets goals PT Short Term Goals Short Term Goals Time Frame: Jun 17, 2019 Gait Distance Comment: 300' SBA Gait Assistive Device: FWW PT Mill Hand Plate Mill Goals Jail Goals PT Jail Goals Time Frame: Jul 01, 2019 Sit to Lying (QC): 6 Lying-Sitting on Side/Bed(QC): 6 Sit to Stand (QC): 6 Roll Left to Right (QC): 6 Chair/Ihj-ag-Eqgkv Xfer(QC): 6 Car Transfer (QC): 6 Distance: 500' Walk 10 feet (QC): 6 Walk 10ft-Uneven Surface(QC): 6 Walk 50ft with 2 Turns (QC): 6 Walk 150 ft (QC): 6 Gait Assistive Device: Walker 4 Wheeled Does the Pt use WC or Scooter?: No # of Steps: 12 (SBA) 1 Step (curb) (QC): 4 4 Steps (QC): 4 12 Steps (QC): 4 Picking up an Object (QC): 6 PT Plan Treatment/Plan Treatment Plan: Continue Plan of Care Treatment Plan: Education, Functional Activity Mary [place], Functional Strength, Group Therapy, Gait, Safety, Therapeutic Exercise, Transfers Treatment Duration: Jun 10, 2019 Frequency: At least 5 of 7 days/Wk (IRF) Estimated Hrs Per Day: 1.5 hours per day Patient and/or Family Agrees t: Yes Safety Risks/Education Patient Education: Gait Training, Transfer Techniques, Steps, Correct Positioning, Disease Process, Safety Issues Teaching Recipient: Patient Teaching Methods: Demonstration, Discussion Response to Teaching: Verbalize Understanding, Return Demonstration Time/GCodes Time In: 1015 Time Out: 1050 Total Billed Treatment Time: 35 Total Billed Treatment 1,FA20m,EX15m ALTISHA CAVANAUGH COMPRESSOR TECHNICIAN Jun 16, 2019 10:49 POS
--- NOTE | 2019-06-16 14:41 | Therapy Group Daily Note ---
Therapy Daily Group Note Patient Education Topic Other List Below (memory and strategies) Exercises LE Seated Exercise, UE Exercise Session Ratio (pt:therapist): 4:1 Goal of Session: Education on ARU Expectations, Memory Strategies, UE/LE Strengthing Goal Met for this Session: Yes Pt Benefit of Group: Contributions to Others, Increased Functional Safety, Increased Functional Strength, Improved Cognition, Socialization Other/Notes Pt. participated in group PT OT session . [place] [facility] [place] Pt. was social and participated sharing name and contributing to exercises session by demonstrating exercises from written illustrated card. Pt. also active participant in memory activity utilizing matching images challenge. Pts were reviewed in the routines and expectations of ARU. Pt. to room after group , call ball at hand Start Time: 13:00 Stop Time: 14:15 Total Billed Treatment Time: 75 Total Billed Treatment 1,GRP LATISHA CAVANAUGH SUPERINTENDENT COLLIERY Jun 16, 2019 14:41 POS
--- NOTE | 2019-06-16 15:59 | NUR ---
Weekly team conference Met with patient to discuss weekly team conference. Patient reported that the surgeon had been by to assess her J-tube. Patient reported that no intervention is necessary at this time. Discharge date had been set for 06/18/19, to allow surgeon to evaluate and treat the J-tube. Since no intervention is necessary, patient would like to discharge home tomorrow, 06/17/19. The team is agreeable to this. Patient denied need for home health care or for outpatient therapy. Patient reported she does not need any adaptive equipment. Patient verbalized she is ready to go home. RN and Dr. Pearson updated on dc plan, home with spouse on 06/17/19.
--- NOTE | 2019-06-16 16:14 | NUR ---
IMM discussed with patient and signature obtained. Patient is "ready to go home."
[2019-06-16] MEDS ORDERED: PRD20T PO (16:28)
--- NOTE | 2019-06-16 16:32 | Consultation - Surgery ---
KELBY SAUER,MED STUDENT 06/16/19 1632: History of Present Illness History of Present Illness Patient Consulted On(dillon/time) 06/16/19 16:30 Date Seen by Provider: Jun 16, 2019 Time Seen by Provider: 13:45 History of Present Illness Consult requested by Dr. Phillips for infection at J-tube site. Patient reports mild pain around the site and some leakage, however the site is still functionin g properly. This pt is currently in rehab due to Myasthenic crisis. She has a hx of gastric bypass, and has a J-tube for nutrition support. Allergies and Home Medications Allergies Coded Allergies: diphenhydramine (Verified Allergy, Intermediate, MUSCLE PAIN; AGITATION, 06/09/19) promethazine (Verified Allergy, Mild, AGITATION, 06/09/19) Home Medications Biotin 10,000 Mcg Capsule, 10,000 MCG PO DAILY, (Reported) Calcium Citrate/Vitamin D3 1 Each Tablet, 2 TAB.CHEW PO TIDWM, (Reported) 500MG/400 UNITS Carvedilol 3.125 Mg Tablet, 3.125 MG PO BID, (Reported) HOLD FOR HR <55 BPM OR SBP<95 Cholecalciferol (Vitamin D3) 5,000 Unit Capsule, 5,000 UNIT PO DAILY, (Reported) Cyanocobalamin (Vitamin B-12) 500 Mcg Tablet, 500 MCG PO DAILY, (Reported) Doxycycline Hyclate 100 Mg Capsule, 100 MG PO BID, (Reported) LAST FILLED #60 03-30-19 Duloxetine HCl 60 Mg Capsule.dr, 60 MG PO DAILY, (Reported) Ergocalciferol (Vitamin D2) 50,000 Unit Capsule, 50,000 UNIT PO WEEK, (Reported) Ferrous Sulfate 325 Mg Tablet, 325 MG PO DAILY, (Reported) Gabapentin 300 Mg Capsule, 300 MG PO QID, (Reported) Immune Globulin,Gamma(IgG) 1 Gm/5 Ml Vial, SC UD, (Reported) Lipase/Protease/Amylase 1 Each Capsule.dr, 3 CAP PO TIDWM, (Reported) Lipase/Protease/Amylase 1 Each Capsule.dr, 2 CAP PO WITH SNACKS, (Reported) Meloxicam 15 Mg Tablet, 15 MG PO DAILY, (Reported) Multivitamin 1 Each Tablet, 2 TAB PO DAILY, (Reported) Omeprazole 40 Mg Capsule.dr, 40 MG PO DAILY, (Reported) Polyethylene Glycol 3350 17 Gm Powd.pack, 17 GM PO DAILY, (Reported) Pravastatin Sodium 10 Mg Tablet, 10 MG PO HS, (Reported) Prednisone 20 Mg Tab, 40 MG PO DAILY@0700 Prescribed by: JESSE PHILLIPS on 06/16/19 1628 Pyridostigmine [place] 60 Mg Tab, 60 MG PO TID, (Reported) Pyridoxine HCl 100 Mg Tablet, 100 MG PO DAILY, (Reported) Ropinirole HCl 0.5 Mg Tablet, 0.5 MG PO HS, (Reported) Sennosides/Docusate Sodium 1 Each Tablet, 1 TAB PO BID, (Reported) Spironolactone 25 Mg Tablet, 25 MG PO DAILY, (Reported) Temazepam 30 Mg Capsule, 30 MG PO HS PRN for SLEEP, (Reported) Tramadol HCl 50 Mg Tablet, 50-100 MG PO BID PRN for PAIN-MODERATE, (Reported) Vitamin A Palmitate 10,000 Unit Capsule, 10,000 UNIT PO DAILY, (Reported) Past Jxhcivz-Bhftir-Cqkjqw Hx Patient Social History Alcohol Use: Denies Use Recreational Drug Use: No Smoking Status: Never a Smoker Recent Foreign Travel: No Contact w/Someone Who Travel: No Recent Infectious Disease Expo: No Recent Hopitalizations: Yes (05/28/19) Physical Abuse Screen: No Sexual Abuse: No Immunizations Up To Date Date of Pneumonia Vaccine: Aug 18, 2012 Date of Influenza Vaccine: Jul 06, 2015 Seasonal Allergies Seasonal Allergies: No Surgeries History of Surgeries: Yes (ORIF left hip, right shoulder sx, cholecystectomy, spleenectomy) Respiratory History of Respiratory Disorde: Yes Respiratory Disorders: Pneumonia Cardiovascular History of Cardiac Disorders: Yes Neurological History of Neurological Disord: Yes (MYASTHENIA GRAVIS) Reproductive System Hx Reproductive Disorders: No Sexually Transmitted Disease: No HIV/AIDS: No Female Reproductive Disorders: Denies Genitourinary History of Genitourinary Disor: No Gastrointestinal History of Gastrointestinal Di: Yes (GASTRITIS, MALNUTRITION, GASTRIC BYPASS, STOMACH STAPLING) Gastrointestinal Disorders: Pancreatitis, Chronic Diarrhea Musculoskeletal History of Musculoskeletal Dis: Yes Musculoskeletal Disorders: Osteoporosis, Fractures Endocrine History of Endocrine Disorders: No HEENT History of HEENT Disorders: Yes HEENT Disorders: Tonsilitis Loss of Vision: Denies Hearing Impairment: Denies Cancer History of Cancer: No Psychosocial History of Psychiatric Problem: Yes Behavioral Health Disorders: Anxiety, Depression Integumentary History of Skin or Integumenta: No Blood Transfusions History of Blood Disorders: No Adverse Reaction to a Blood Tr: No Family Medical History Family Medial History: Diabetes mellitus 19 MOTHER FH: lung cancer 19 FATHER Physical Exam-General Problems Physical Exam Vital Signs Vital Signs - First Documented 06/10/19 06/10/19 06/12/19 00:00 06:33 18:00 Temp 36.6 Pulse 81 Resp 18 B/P (MAP) 126/64 (84) Pulse Ox 91 O2 Delivery Room Air O2 Flow Rate 2.00 Capillary Refill : General Appearance: no apparent distress Respiratory: no respiratory distress, no accessory muscle use Gastrointestinal: soft; No distended; tenderness (mild, at site of J-tube) Skin: normal color, warm/dry, rash (Red rash at J-tube site) Assessment/Plan Assessment/Plan Assessment/Plan Infection at J-tube site Rash J-tube site dressing changed and cleaned. Discussed with patient and nursing staff keeping the site clean, dry and not occluded. J-tube continues to function properly and will stay in place. Apply topical antifungal powder. Clinical Quality Measures DVT/VTE Risk/Contraindication: Risk Factor Score Per Nursin RFS Level Per Nursing on Admit: 2=Moderate Contraindications-Pharm: Other *list below* Contraindications-Mechi: Other *list below* Other: SCD's only. Myasthenia Gravis EVELYN FUNEZ DO 06/16/192024: History of Present Illness History of Present Illness History of Present Illness Consult requested by Dr. Phillips for J-tube leaking/irritation. Patient is a 68 year old female that has had a J-tube since about September she states. She was having difficulty with malabsorbtion, therefore she has it placed. She states that she has had a couple of episodes where it has fallen out and had to be replaced, but had no difficulty with having it replaced. She states that she is still using the j-tube. It is leaking from around the tube and causing irritation, and it has a slight sour odor she states. Some slight discomfort around the area. Currently in rehab she states to get stronger due to Myasthenia Crisis. Denies any difficulties at this time. Denies n/v fever sweats chills shortness of breath or chest pain. Allergies and Home Medications Allergies Coded Allergies: diphenhydramine (Verified Allergy, Intermediate, MUSCLE PAIN; AGITATION, 06/09/19) promethazine (Verified Allergy, Mild, AGITATION, 06/09/19) Home Medications Biotin 10,000 Mcg Capsule, 10,000 MCG PO DAILY, (Reported) Calcium Citrate/Vitamin D3 1 Each Tablet, 2 TAB.CHEW PO TIDWM, (Reported) 500MG/400 UNITS Carvedilol 3.125 Mg Tablet, 3.125 MG PO BID, (Reported) HOLD FOR HR <55 BPM OR SBP<95 Cholecalciferol (Vitamin D3) 5,000 Unit Capsule, 5,000 UNIT PO DAILY, (Reported) Cyanocobalamin (Vitamin B-12) 500 Mcg Tablet, 500 MCG PO DAILY, (Reported) Doxycycline Hyclate 100 Mg Capsule, 100 MG PO BID, (Reported) LAST FILLED #60 03-30-19 Duloxetine HCl 60 Mg Capsule.dr, 60 MG PO DAILY, (Reported) Ergocalciferol (Vitamin D2) 50,000 Unit Capsule, 50,000 UNIT PO WEEK, (Reported) Ferrous Sulfate 325 Mg Tablet, 325 MG PO DAILY, (Reported) Gabapentin 300 Mg Capsule, 300 MG PO QID, (Reported) Immune Globulin,Gamma(IgG) 1 Gm/5 Ml Vial, SC UD, (Reported) Lipase/Protease/Amylase 1 Each Capsule.dr, 3 CAP PO TIDWM, (Reported) Lipase/Protease/Amylase 1 Each Capsule.dr, 2 CAP PO WITH SNACKS, (Reported) Meloxicam 15 Mg Tablet, 15 MG PO DAILY, (Reported) Multivitamin 1 Each Tablet, 2 TAB PO DAILY, (Reported) Omeprazole 40 Mg Capsule.dr, 40 MG PO DAILY, (Reported) Polyethylene Glycol 3350 17 Gm Powd.pack, 17 GM PO DAILY, (Reported) Pravastatin Sodium 10 Mg Tablet, 10 MG PO HS, (Reported) Prednisone 20 Mg Tab, 40 MG PO DAILY@0700 Prescribed by: JESSE PHILLIPS on 06/16/19 3408 Pyridostigmine [place] 60 Mg Tab, 60 MG PO TID, (Reported) Pyridoxine HCl 100 Mg Tablet, 100 MG PO DAILY, (Reported) Ropinirole HCl 0.5 Mg Tablet, 0.5 MG PO HS, (Reported) Sennosides/Docusate Sodium 1 Each Tablet, 1 TAB PO BID, (Reported) Spironolactone 25 Mg Tablet, 25 MG PO DAILY, (Reported) Temazepam 30 Mg Capsule, 30 MG PO HS PRN for SLEEP, (Reported) Tramadol HCl 50 Mg Tablet, 50-100 MG PO BID PRN for PAIN-MODERATE, (Reported) Vitamin A Palmitate 10,000 Unit Capsule, 10,000 UNIT PO DAILY, (Reported) Patient Home Medication List Home Medication List Reviewed: Yes Past Chbhwnb-Sfdlyt-Jrcmei Hx Patient Social History Alcohol Use: Denies Use Recreational Drug Use: No Smoking Status: Never a Smoker Recent Foreign Travel: No Contact w/Someone Who Travel: No Recent Infectious Disease Expo: No Recent Hopitalizations: Yes (05/28/19) Physical Abuse Screen: No Sexual Abuse: No Surgeries History of Surgeries: Yes (ORIF left hip, right shoulder sx, cholecystectomy, spleenectomy) Respiratory History of Respiratory Disorde: Yes Respiratory Disorders: Pneumonia Neurological History of Neurological Disord: Yes (MYASTHENIA GRAVIS) Reproductive System Female Reproductive Disorders: Denies Gastrointestinal History of Gastrointestinal Di: Yes (GASTRITIS, MALNUTRITION, GASTRIC BYPASS, STOMACH STAPLING) Gastrointestinal Disorders: Pancreatitis, Chronic Diarrhea Musculoskeletal History of Musculoskeletal Dis: Yes Musculoskeletal Disorders: Osteoporosis, Fractures Endocrine History of Endocrine Disorders: No HEENT History of HEENT Disorders: Yes HEENT Disorders: Tonsilitis Loss of Vision: Denies Hearing Impairment: Denies Cancer History of Cancer: No Psychosocial Behavioral Health Disorders: Anxiety Family Medical History Significant Family History: No Pertinent Family Hx Family Medial History: Diabetes mellitus 19 MOTHER FH: lung cancer 19 FATHER Review of Systems-General Constitutional: no symptoms reported EENTM: no symptoms reported Respiratory: no symptoms reported Cardiovascular: no symptoms reported Gastrointestinal: see HPI Genitourinary: no symptoms reported Musculoskeletal: no symptoms reported Skin: no symptoms reported Psychiatric/Neurological: No Symptoms Reported Physical Exam-General Problems Physical Exam General Appearance: no apparent distress HEENT: PERRL/EOMI, normal ENT inspection Neck: non-tender, full range of motion Respiratory: no respiratory distress, no accessory muscle use Cardiovascular: regular rate, rhythm Gastrointestinal: soft, tenderness (mild, at site of J-tube, slight irritation appears yeasty, j tube not very snug at skin and at 8 cm) Back: no CVA tenderness Neurologic/Psychiatric: alert, normal mood/affect, oriented x 3 Skin: normal color, warm/dry, rash (erthematous yeasty rash at j tube site) Lymphatic: no adenopathy Assessment/Plan Assessment/Plan Assessment/Plan Yeast skin infection at j-tube malabsorption history of gastric bypass j tube is leaking would recommend keeping it more secure. i secured it at the 4 cm peter would begin using antifungal powder and changing dressing as needed keeping the area as dry as possible this was communicated to the patient and the nurse which both understand. will follow no surgical interventions needed at this time. Supervisory-Addendum Brief Verification & Attestation Participated in pt care: history, MDM, physical Personally performed: exam, history, MDM, supervision of care Care discussed with: Medical Student Procedures: n/a Results interpretation: Verified all documentation Verification and Attestation of Medical Student E/M Service A medical student performed and documented this service in my presence. I reviewed and verified all information documented by the medical student and made modifications to such information, when appropriate. I personally performed the physical exam and medical decision making. Evelyn Funez, Jun 16, 2019,20:32 KELBY SAUER,MED STUDENT Jun 16, 2019 16:32 EVELYN MARC DO Jun 16, 2019 20:25 POS
[2019-06-16 18:00] VITALS: BP 129/63
[2019-06-16] MEDS: SIMvastatin 10 MG (ZOCOR) TAB PO SCH (21:28)
[2019-06-16] MEDS: rOPINIRole 0.25 MG (REQUIP) TAB PO SCH (21:28)
[2019-06-16] MEDS: MICONAZOLE 2% POWDER (DESENEX AF) 90 GM TOP SCH (21:40)
[2019-06-16] MEDS: TEMAZEPAM 15 MG (RESTORIL) CAP PO PRN (22:31)
[2019-06-17 05:18] VITALS: BP 107/64
[2019-06-17] MEDS: FERROUS SULF 325 MG (IRON) TAB PO SCH (06:38)
[2019-06-17] MEDS: MULTIVIT W/MINERALS TAB (THERAGRAN M) PO SCH (06:38)
[2019-06-17] MEDS: CALCIUM CARB + VIT D 600 MG (CALCARB + D) TAB PO SCH (06:38)
[2019-06-17] MEDS: CYANOCOBALAMIN 1,000 MCG (VITAMIN B-12) TABLET PO SCH (06:38)
[2019-06-17] MEDS: LIPASE/AMYLASE/PROTEASE (PANCRELIPASE) 5,000 UNITS CAP PO SCH (06:38)
[2019-06-17] MEDS: BIOTIN 10000 MCG PO SCH (06:38)
[2019-06-17] MEDS: predniSONE 20 MG TAB PO SCH (06:38)
--- NOTE | 2019-06-17 08:20 | Therapy Team Discharge Summary ---
Therapy Discharge Summary Discharge Recommendations Date of Discharge Physical Therapy Patient came to rehab with sepsis, pneumonia, myasthenia gravis. Upon evaluation patient performed bed mobility with independence, transfers with SBA, car transfer with independence, ambulated 150' with a 4 wheeled walker with SBA (including 50' with at least 2 turns of 90 degrees and 10' over an uneven surface), can go up and down 12 steps using 2 handrails with SBA, and picked up an object from the floor with SBA. Patient has made good progress and has met all of her fdc goals. Now, patient is independent with bed mobility and transfers, independent with car transfer, independent with picking up an object off the floor, independent with ambulation using a 4 wheeled walker (including 50' with at least 2 turns of 90 degrees and 10' over an uneven surface). Patient is being discharged from this facility today and will be discharged from PT at this time. Occupational Therapy Decreased Activ Tolerance, Decreased UE Strength, Impaired I ADL's, Restricted F unct UE ROM PT Urology Teacher Goals Urology Teacher Goals PT Urology Teacher Goals Time Frame: Jul 01, 2019 Roll Left to Right (QC): 6 Sit to Lying (QC): 6 Lying-Sitting on Side/Bed(QC): 6 Sit to Stand (QC): 6 Chair/Spv-ks-Wzheu Xfer(QC): 6 Car Transfer (QC): 6 Distance: 500' Walk 10 feet (QC): 6 Walk 10ft-Uneven Surface(QC): 6 Walk 50ft with 2 Turns (QC): 6 Walk 150 ft (QC): 6 Gait Assistive Device: Walker 4 Wheeled Does the Pt use WC or Scooter?: No # of Steps: 12 (SBA) 1 Step (curb) (QC): 4 4 Steps (QC): 4 12 Steps (QC): 4 Picking up an Object (QC): 6 OT Correction Goals Urology Teacher Goals Eating (QC): 6 (met) Oral Hygiene (QC): 6 (met) Shower/Bathe Self (QC): 6 (met) Upper Body Dressing (QC): 6 (met) Lower Body Dressing (QC): 6 (met) On/Off Footwear (QC): 6 (met) Toileting Hygiene (QC): 6 (met) Toilet/Commode Transfer (QC): 6 (met) Additional Goals: 1-Demonstrate ADL Tasks, 2-Verbalize Understanding, 3- ImproveStrength/Mary Grace 1=Demonstrate adherence to instructed precautions during ADL tasks. 2=Patient will verbalize/demonstrate understanding of assistive devices/modifications for ADL. 3=Patient will improve strength/tolerance for activity to enable patient to perform ADL's. SAAD SAINZ PT Jun 17, 2019 08:20 POS
[2019-06-17] MEDS: SENNA W/DOCUSATE (SENOKOT S) TABLET PO SCH (08:24)
[2019-06-17] MEDS: PYRIDOXINE (VITAMIN B-6) 50 MG TABLET PO SCH (08:39)
[2019-06-17] MEDS: PANTOPRAZOLE 40 MG (PROTONIX) TAB PO SCH (08:39)
[2019-06-17] MEDS: VITAMIN D2 50,000 UNITS (1.25 MG) CAP PO SCH (08:39)
[2019-06-17] MEDS: SPIRONOLACTONE 25 MG (ALDACTONE) TAB PO SCH (08:39)
[2019-06-17] MEDS: DULoxetine 30 MG (CYMBALTA) CAP PO SCH (08:39)
[2019-06-17] MEDS: VITAMIN D3 5,000 UNITS (CHOLECALCIFEROL ) CAPSULE PO SCH (08:39)
[2019-06-17] MEDS: GABAPENTIN 300 MG (NEURONTIN) CAP PO SCH (08:40)
[2019-06-17] MEDS: CARVEDILOL 3.125 MG (COREG) TABLET PO SCH (08:40)
[2019-06-17] MEDS: MELOXICAM 7.5 MG (MOBIC) TABLET PO SCH (08:40)
[2019-06-17] MEDS: PYRIDOSTIGMINE 60 MG TAB (MESTINON) NON-FORMULARY PO SCH (08:41)
[2019-06-17] MEDS: MICONAZOLE 2% POWDER (DESENEX AF) 90 GM TOP SCH (08:41)
--- NOTE | 2019-06-17 10:22 | Progress Note ---
ADRYAN CARRILLO MED STUDENT 06/17/19 1022: Progress Note Mrs. Araya was transferred to [facility] from with a chief complaint of debilitation following a myasthenic crisis that resulted in aspiration klebsiella pneumonia, during the treatment of which she was on a ventilator. Her main goal for therapy was to improve her endurance, and she made good progre ss in PT/OT, last session she was independent in all activities. There was some concern before discharge about her J-tube, which was placed in the past due to complications of gastric bypass, due to increased leaking. Dr. Estrada was consulted and determined it is functioning properly, and instructed to keep site clean and to apply topical antifungal powder for rash. When seen today she reports feeling well, she feels that her double vision, ptosis, and speaking voice are slowly improving since IVIG treatment for myasthenia gravis, and she feels very confident about her abilities to perform her ADLs, and is very enthusiastic about going home. BRENDA PHILLIPS DO 06/18/19 0828: Supervisory-Addendum Brief Verification & Attestation Participated in pt care: history, MDM, physical Personally performed: exam, history, MDM, supervision of care Care discussed with: Medical Student Procedures: n/a Results interpretation: Verified all documentation Verification and Attestation of Medical Student E/M Service A medical student performed and documented this service in my presence. I reviewed and verified all information documented by the medical student and made modifications to such information, when appropriate. I personally performed the physical exam and medical decision making. Brenda Phillips, Jun 18, 2019,08:28 ADRYAN CARRILLO MED STUDENT Jun 17, 2019 10:22 BRENDA SAUCEDO DO Jun 18, 2019 08:28 POS
--- NOTE | 2019-06-17 10:57 | Therapy Team Discharge Summary ---
Therapy Discharge Summary Discharge Recommendations Date of Discharge Occupational Therapy Pt admitted with diagnosis of sepsis, pneumonia, myasthenia gravis. Upon evaluation, pt demonstrated decreased endurance and strength of UE and required SUP for dressing and showering tasks and SBA for functional transfers. Pt and OT worked toward IND within ADLs and increasing strength/ endurance within everyday tasks. Pt educated on energy conservation tasks and demonstrated competency in skilled home exercise program to continue at home. Pt met all LTG's, IND within showering, dressing, transfers, oral hygiene, feeding, and on/off footwear. Pt has walk in shower at home with grab bars and shower chair, no other AE required. No other therapy recommendations. Decreased Activ Tolerance, Decreased UE Strength, Impaired I ADL's, Restricted Funct UE ROM PT Retirement Goals Crime Scene Technician Goals PT Crime Scene Technician Goals Time Frame: Jul 01, 2019 Roll Left to Right (QC): 6 Sit to Lying (QC): 6 Lying-Sitting on Side/Bed(QC): 6 Sit to Stand (QC): 6 Chair/Rsm-pr-Mzpwn Xfer(QC): 6 Car Transfer (QC): 6 Distance: 500' Walk 10 feet (QC): 6 Walk 10ft-Uneven Surface(QC): 6 Walk 50ft with 2 Turns (QC): 6 Walk 150 ft (QC): 6 Gait Assistive Device: Walker 4 Wheeled Does the Pt use WC or Scooter?: No # of Steps: 12 (SBA) 1 Step (curb) (QC): 4 4 Steps (QC): 4 12 Steps (QC): 4 Picking up an Object (QC): 6 OT Crime Scene Technician Goals Retirement Goals Eating (QC): 6 (met) Oral Hygiene (QC): 6 (met) Shower/Bathe Self (QC): 6 (met) Upper Body Dressing (QC): 6 (met) Lower Body Dressing (QC): 6 (met) On/Off Footwear (QC): 6 (met) Toileting Hygiene (QC): 6 (met) Toilet/Commode Transfer (QC): 6 (met) Additional Goals: 1-Demonstrate ADL Tasks, 2-Verbalize Understanding, 3- ImproveStrength/Mary Grace 1=Demonstrate adherence to instructed precautions during ADL tasks. 2=Patient will verbalize/demonstrate understanding of assistive devices/modifications for ADL. 3=Patient will improve strength/tolerance for activity to enable patient to perform ADL's. RAMIRO MAYS OTR Jun 17, 2019 10:57 POS
--- NOTE | 2019-06-17 10:57 | NUR ---
RD ASSESSMENT PMHx: myasthenia gravis PT INTERACTION: Pt was awake and pleasant during nutrition follow-up. Pt states current appetite is good, and has been since last assessment. Pt states no issues with n/v/c/d since last assessment. ABNORMAL NUTRITION-RELATED LAB VALUES: Labs WNL Est. kcal needs: [id number] kcal (25-30 kcal/kg) Est. Pro needs: 56-67 g Pro (1.0-1.2 g Pro/kg) PES STATEMENT: No nutrition diagnosis at this time (NO-1.1) INTERVENTION: Continue with current diet order of Regular diet. From nutrition standpoint, pt has no needs and is ready for discharge. MONITOR/EVALUATE: PO Intake; Plan of Care; Hydration Status; Weight Status; Lab Values Pebbles Luz, MS, RD, LD Ext. [phone]
--- NOTE | 2019-06-17 11:34 | Progress Note - Surgery ---
Subjective Date Seen by a Provider: Jun 17, 2019 Time Seen by a Provider: 07:10 Subjective/Events-last exam Patient seen and examined. Irritation and rash around J-tube site is still present, although patient states she believes it is improving. Miconazole powder was administered to the area twice yesterday, and the area has been kept dry. She denies any itching or tenderness in the area. She also denies fever, n/v/d and abdominal pain. Objective Exam Vital Signs Date Time Temp Pulse Resp B/P (MAP) Pulse Ox O2 Delivery O2 Flow Rate FiO2 06/17/19 08:02 Room Air 06/17/19 05:18 36.4 82 18 107/64 (78) 96 Room Air 06/16/19 20:30 Room Air 06/16/19 18:00 36.8 101 20 129/63 (85) 98 Room Air I & O 06/17/19 07:00 Intake Total 1530 ml Balance 1530 ml Capillary Refill : General Appearance: No Apparent Distress, WD/WN, Chronically ill, Cachetic, Thin, Other (frail) HEENT: No Scleral Icterus (L), No Scleral Icterus (R) Neck: Full Range of Motion, Normal Inspection Respiratory: Lungs Clear, Normal Breath Sounds, No Accessory Muscle Use, No Respiratory Distress Cardiovascular: Regular Rate, Rhythm, No Edema, No Murmur Peripheral Pulses: 2+ Radial Pulses (R), 2+ Radial Pulses (L) Gastrointestinal: soft, tenderness (mild irritation and rash at J-tube site) Extremity: Normal Capillary Refill, Normal Inspection, Non Tender, No Pedal Edema Neurologic/Psychiatric: Alert, Oriented x3, Normal Mood/Affect, Motor Weakness (generalized all extremities) Skin: Normal Color, Warm/Dry Lymphatic: No Adenopathy Assessment/Plan Assessment/Plan Assessment/Plan Yeast skin infection at j-tube malabsorption history of gastric bypass Apply miconazole powder to J-tube area Continue changing dressing as needed keeping the area as dry as possible no surgical interventions needed at this time Clinical Quality Measures DVT/VTE Risk/Contraindication: Risk Factor Score Per Nursin RFS Level Per Nursing on Admit: 2=Moderate Contraindications-Pharm: Other *list below* Contraindications-Mechi: Other *list below* Other: SCD's only. Myasthenia Gravis KELBY SAUER,MED STUDENT Jun 17, 2019 11:34 POS
--- NOTE | 2019-06-17 13:33 | PM&R Progress Note ---
Subjective HPI/CC On Admission Date Seen by Provider: Jun 17, 2019 Time Seen by Provider: 09:[address] Carbone CC: Severe debility with MyastheniaGravis HPI: This is a pt who is being transferredfrom Med after and ICU coursefollowing klebsiella pneumoniaseptic shock, completed Meropenem and. extubated doing very well. 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 J Tube maintained for nutrition support and that did get replaced prior to transfer from since a piece had broken off when she was getting into the car to come to rehab She has been to rehab in the past and she usually runs low on minerals and B12 due to gastric bypass before. Her Hgb remains stable at 11.9 and her phosphorus was low but it was 2.4 today and creatinine remains normal at 0.6 She remains on Prednisone 40mg since she is tolerating her diet well.PLOF is use of walker at home and mostly independent with ADL's. Elliot Gutiérrez, MSIII: Barriers to discharge/return home: * Pneumonia has resolved, however she reports she remains SOB * Main concern for therapy is her endurance and SOB * Otherwise feels capable of going about her ADLs, has assistance from her at home. Looks forward to numerous family events next year. 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, continues to see for management * PE * L eye ptosis noted * On auscultation, heart RRR, lungs CTAB * Strength testing 5 for UE, LE * Patellar reflex present on L, not elicited on R * No deficits noted on exam of CN 7 * on testing of CN 3,4,6, noted L eye nystagmus when looking down and away Subjective/Events-last exam DC summary completed Checked meds and labs Conferred with director surface transportation therapy notes Objective Exam Vital Signs Vital Signs Date Time Temp Pulse Resp B/P (MAP) Pulse Ox O2 Delivery O2 Flow Rate FiO2 06/17/19 11:50 06/17/19 08:02 Room Air 06/17/19 05:18 36.4 82 18 96 06/12/19 18:00 2.00 Capillary Refill : General Appearance: No Apparent Distress, WD/WN, Chronically ill, Cachetic, Thin, Other (frail) HEENT: No Scleral Icterus (L), No Scleral Icterus (R) Neck: Full Range of Motion, Normal Inspection Respiratory: Lungs Clear, Normal Breath Sounds, No Accessory Muscle Use, No Respiratory Distress Cardiovascular: Regular Rate, Rhythm, No Edema, No Murmur Gastrointestinal: Normal Bowel Sounds, No Organomegaly, No Pulsatile Mass, Non Tender, Soft Back: Normal Inspection, No CVA Tenderness, No Vertebral Tenderness Extremity: Normal Capillary Refill, Normal Inspection, Non Tender, No Pedal Edema Neurologic/Psychiatric: Alert, Oriented x3, Normal Mood/Affect, Motor Weakness (generalized all extremities) Skin: Normal Color, Warm/Dry Lymphatic: No Adenopathy Results/Procedures Lab Patient resulted labs reviewed. FIM Transfers Therapy Code Descriptions/Definitions Functional [place] Measure: 0=Not Assessed/NA 4=Minimal Assistance 1=Total Assistance 5=Supervision or Setup 2=Maximal Assistance 6=Modified [place] 3=Moderate Assistance 7=Complete IndependenceSCALE: Activities may be completed with or without assistive devices. 8-Qnqbkuaahs-ofoecrw completes the activity by him/herself with no assistance from a helper. 5-Set-up or Clean-up Assistance-helper sets up or cleans up; patient completes activity. [place] assists only prior to or following the activity. 4-Supervision or Touching Assistance-helper provides verbal cues and/or touching/steadying and/or contact guard assistance as patient completes activity. Assistance may be provided throughout the activity or intermittently. 3-Partial/Moderate Assistance-helper does LESS THAN HALF the effort. [place] lifts, holds or supports trunk or limbs, but provides less than half the effort. 2-Substantial/Maximal Assistance-helper does MORE THAN HALF the effort. [place] lifts or holds trunk or limbs and provides more than half the effort. 8-Gllzthdoy-oxfswr does ALL the effort. Patient does none of the effort to complete the activity. Or, the assistance of 2 or more helpers is required for the patient to complete the activity. If activity was not attempted, code reason: 7-Patient Refused. 9-Not Applicable-not attempted and the patient did not perform the activity before the current illness, exacerbation or injury. 10-Not Attempted due to Environmental Limitations-(lack of equipment, weather restraints, etc.). 88-Not Attempted due to Medical Conditions or Safety Concerns. Transfers (B, C, W/C) (FIM): 6 Roll Left to Right (QC): 6 Sit to Lying (QC): 6 Sit to Stand (QC): 6 Chair/Oxi-zd-Lwqzy Xfer(QC): 6 Bed to/from Chair: 6 Car Transfer (QC): 6 Gait Training Does the Patient Walk?: Yes Gait (FIM): 6 Distance (FIM): 3=150 ft Distance: 150', 250' Walk 10 feet (QC): 6 Walk 50 ft with 2 Turns(QC): 6 Walk 150 ft (QC): 6 Walking 10ft/uneven surface-QC: 6 Gait Persons Needed: 0 Gait Assistive Device: Walker 4 Wheeled Wheelchair Training Does the Pt Use a Wheelchair?: No Stair Training Stair Training: Handrails/: 2 handrails #of Steps: 12 1 Step (curb) (QC): 6 4 Steps (QC): 6 12 Steps (QC): 6 Stairs: Pattern: Step to Level of Assist: 6 Balance Picking up an Object (QC): 6 ADL-Treatment Eating (QC): 6 (drinks from straw) Oral Hygiene (QC): 6 (Pt completes ) Shower/Bathe Self (QC): 6 (Completes sponge bath EOB with good endurance and ROM, able to wash all areas with IND.) Upper Body Dressing (QC): 6 (Pt completes EOB with IND.) Lower Body Dressing (QC): 6 (Pt gathers clothing and completes undergarment donning while standing with good dynamic standing balance and dons pants sitting EOB with IND) On/Off Footwear (QC): 6 (Completes while sitting) Toileting Hygiene (QC): 6 Toilet Transfer (QC): 6 (No use of grab bars, IND.) Assessment/Plan Assessment and Plan Assess & Plan/Chief Complaint Assessment: MG s/p vent dependency s/p Klebsiella pneumoniae Osteonecrosis of the jaw hx Gastric bypass hx Vitamin deficiency Chronic diarrhea Malabsorption Acute on chronic migraine PEG dysfunction consulting Dr Estrada Plan: Home meds IRF protocol Checked meds Migraine treatment Monitor pain DC planning Appreciate Dr Estrada (1) Myasthenia gravis Status: Acute (2) S/P gastric bypass (3) Malnutrition (4) B12 deficiency (5) History of ventilator dependency (6) Klebsiella pneumonia (7) Osteonecrosis of jaw (8) Gastrointestinal tube present Status: Acute JESSE PHILLIPS DO Jun 17, 2019 13:33 POS
--- NOTE | 2019-06-17 13:34 | Discharge Summary ---
Diagnosis/Chief Complaint Date of Admission Jun 09, 2019 at 21:01 Date of Discharge Discharge Date: Jun 17, 2019 Discharge Diagnosis Assessment: MG s/p vent dependency s/p Klebsiella pneumoniae Osteonecrosis of the jaw hx Gastric bypass hx Vitamin deficiency Chronic diarrhea Malabsorption Acute on chronic migraine Plan: Home meds IRF protocol Checked meds Migraine treatment Monitor pain DC planning (1) Myasthenia gravis Status: Acute (2) S/P gastric bypass (3) Malnutrition (4) B12 deficiency (5) History of ventilator dependency (6) Klebsiella pneumonia (7) Osteonecrosis of jaw (8) Gastrointestinal tube present Status: Acute Discharge Summary Discharge Physical Examination Allergies: Coded Allergies: diphenhydramine (Verified Allergy, Intermediate, MUSCLE PAIN; AGITATION, 06/09/19) promethazine (Verified Allergy, Mild, AGITATION, 06/09/19) Vitals & I&Os Vital Signs Date Time Temp Pulse Resp B/P (MAP) Pulse Ox O2 Delivery O2 Flow Rate FiO2 06/17/19 11:50 06/17/19 08:02 Room Air 06/17/19 05:18 36.4 82 18 96 06/12/19 18:00 2.00 General Appearance: Alert, Oriented X3, Cooperative Respiratory: Clear to Auscultation Cardiovascular: Regular Rate Neuro: Normal Gait, Normal Speech, Strength at 5/5 X4 Ext Psych/Mental Status: Mental Status NL, Mood NL Hospital Course Was the Problem List Reviewed?: Yes Hospital course: Pt had a standard hospital course after she was admitted, transferred from for recovery following septic shock and respiratory failure ventilator and she was able to restart all of her Myasthenia Gravis medications in addition to steroids in addition to tube feedings were maintained at night and good appetite returned. Labs remained stable, no significant decompensation occurred during the hospital course. She did have peg tube issues which Dr. Estrada evaluated to have just a little bit of yeast around the tube so that was resolved and will be discharged in improved condition. She will resume her PT she had for her compression fracture of T11 when she gets home. Labs (last 24 hrs) Laboratory Tests 06/11/19 05:30: White Blood Count 7.3, Red Blood Count 3.42L, Hemoglobin 10.8L, Hematocrit 34L, Mean Corpuscular Volume 99, Mean Corpuscular Hemoglobin 32, Mean Corpuscular Hemoglobin Concent 32, Red Cell Distribution Width 16.8H, Platelet Count 465H, Mean Platelet Volume 12.1H, Neutrophils (%) (Auto) 42, Lymphocytes (%) (Auto) 37, Monocytes (%) (Auto) 16H, Eosinophils (%) (Auto) 3, Basophils (%) (Auto) 2, Neutrophils # (Auto) 3.1, Lymphocytes # (Auto) 2.7, Monocytes # (Auto) 1.2H, Eosinophils # (Auto) 0.2, Basophils # (Auto) 0.2H, Sodium Level 141, Potassium Level 3.8, Chloride Level 108H, Carbon Dioxide Level 26, Anion Gap 7, Blood Urea Nitrogen 17, Creatinine 0.67, Estimat Glomerular Filtration Rate > 60, BUN/Creatinine Ratio 25, Glucose Level 98, Calcium Level 7.9L, Corrected Calcium 8.0L, Total Bilirubin 0.3, Aspartate Amino Transf (AST/SGOT) 33, Alanine Aminotransferase (ALT/SGPT) 23, Alkaline Phosphatase 75, Total Protein 5.7L, Albumin 3.9 06/14/19 05:05: White Blood Count 7.2, Red Blood Count 3.44L, Hemoglobin 10.8L, Hematocrit 35, Mean Corpuscular Volume 101H, Mean Corpuscular Hemoglobin 31, Mean Corpuscular Hemoglobin Concent 31L, Red Cell Distribution Width 16.4H, Platelet Count 530H, Mean Platelet Volume 11.2H, Neutrophils (%) (Auto) 51, Lymphocytes (%) (Auto) 28, Monocytes (%) (Auto) 16H, Eosinophils (%) (Auto) 5, Basophils (%) (Auto) 2, Neutrophils # (Auto) 3.7, Lymphocytes # (Auto) 2.0, Monocytes # (Auto) 1.1H, Eosinophils # (Auto) 0.3, Basophils # (Auto) 0.1, Sodium Level 140, Potassium Level 4.0, Chloride Level 107, Carbon Dioxide Level 24, Anion Gap 9, Blood Urea Nitrogen 20H, Creatinine 0.79, Estimat Glomerular Filtration Rate > 60, BUN/Creatinine Ratio 25, Glucose Level 58*L, Calcium Level 8.5, Corrected Calcium 8.7, Total Bilirubin 0.3, Aspartate Amino Transf (AST/SGOT) 29, Alanine Aminotransferase (ALT/SGPT) 24, Alkaline Phosphatase 72, Total Protein 5.8L, Albumin 3.7 06/14/19 06:52: Glucometer 132H Pending Labs Laboratory Tests 06/11/19 05:30: White Blood Count 7.3, Red Blood Count 3.42, Hemoglobin 10.8, Hematocrit 34, Mean Corpuscular Volume 99, Mean Corpuscular Hemoglobin 32, Mean Corpuscular Hemoglobin Concent 32, Red Cell Distribution Width 16.8, Platelet Count 465, Mean Platelet Volume 12.1, Neutrophils (%) (Auto) 42, Lymphocytes (%) (Auto) 37, Monocytes (%) (Auto) 16, Eosinophils (%) (Auto) 3, Basophils (%) (Auto) 2, Neutrophils # (Auto) 3.1, Lymphocytes # (Auto) 2.7, Monocytes # (Auto) 1.2, Eosinophils # (Auto) 0.2, Basophils # (Auto) 0.2, Sodium Level 141, Potassium Level 3.8, Chloride Level 108, Carbon Dioxide Level 26, Anion Gap 7, Blood Urea Nitrogen 17, Creatinine 0.67, Estimat Glomerular Filtration Rate > 60, BUN/Creatinine Ratio 25, Glucose Level 98, Calcium Level 7.9, Corrected Calcium 8.0, Total Bilirubin 0.3, Aspartate Amino Transf (AST/SGOT) 33, Alanine Aminotransferase (ALT/SGPT) 23, Alkaline Phosphatase 75, Total Protein 5.7, Albumin 3.9 06/14/19 05:05: White Blood Count 7.2, Red Blood Count 3.44, Hemoglobin 10.8, Hematocrit 35, Mean Corpuscular Volume 101, Mean Corpuscular Hemoglobin 31, Mean Corpuscular Hemoglobin Concent 31, Red Cell Distribution Width 16.4, Platelet Count 530, Mean Platelet Volume 11.2, Neutrophils (%) (Auto) 51, Lymphocytes (%) (Auto) 28, Monocytes (%) (Auto) 16, Eosinophils (%) (Auto) 5, Basophils (%) (Auto) 2, Neutrophils # (Auto) 3.7, Lymphocytes # (Auto) 2.0, Monocytes # (Auto) 1.1, Eosinophils # (Auto) 0.3, Basophils # (Auto) 0.1, Sodium Level 140, Potassium Level 4.0, Chloride Level 107, Carbon Dioxide Level 24, Anion Gap 9, Blood Urea Nitrogen 20, Creatinine 0.79, Estimat Glomerular Filtration Rate > 60, BUN/Creatinine Ratio 25, Glucose Level 58, Calcium Level 8.5, Corrected Calcium 8.7, Total Bilirubin 0.3, Aspartate Amino Transf (AST/SGOT) 29, Alanine Aminotransferase (ALT/SGPT) 24, Alkaline Phosphatase 72, Total Protein 5.8, Albumin 3.7 06/14/19 06:52: Glucometer 132 Discharge Home Medications: Active Scripts Active Prednisone 20 Mg Tab 40 Mg PO DAILY@0700 Reported Tramadol HCl 50 Mg Tablet 50-100 Mg PO BID PRN Calcium Citrate +Vit D3 Tablet (Calcium Citrate/Vitamin D3) 1 Each Tablet 2 Tab.chew PO TIDWM 500MG/400 UNITS Vitamin A (Vitamin A Palmitate) 10,000 Unit Capsule 10,000 Unit PO DAILY Temazepam 30 Mg Capsule 30 Mg PO HS PRN Senna S Tablet (Sennosides/Docusate Sodium) 1 Each Tablet 1 Tab PO BID Vitamin B-6 (Pyridoxine HCl) 100 Mg Tablet 100 Mg PO DAILY Pravastatin Sodium 10 Mg Tablet 10 Mg PO HS Miralax (Polyethylene Glycol 3350) 17 Gm Powd.pack 17 Gm PO DAILY Creon 24,000 Units Capsule (Lipase/Protease/Amylase) 1 Each Capsule.dr 2 Cap PO WITH SNACKS Creon Dr 24,000 Units Capsule (Lipase/Protease/Amylase) 1 Each Capsule.dr 3 Cap PO TIDWM Multivitamins (Multivitamin) 1 Each Tablet 2 Tab PO DAILY Meloxicam 15 Mg Tablet 15 Mg PO DAILY Hizentra (Immune Globulin,Gamma(IgG)) 1 Gm/5 Ml Vial SC UD Vitamin D2 (Ergocalciferol (Vitamin D2)) 50,000 Unit Capsule 50,000 Unit PO WEEK Duloxetine HCl 60 Mg Capsule.dr 60 Mg PO DAILY Vitamin D3 (Cholecalciferol (Vitamin D3)) 5,000 Unit Capsule 5,000 Unit PO DAILY Carvedilol 3.125 Mg Tablet 3.125 Mg PO BID HOLD FOR HR <55 BPM OR SBP<95 B-12 (Cyanocobalamin (Vitamin B-12)) 500 Mcg Tablet 500 Mcg PO DAILY Biotin 10,000 Mcg Capsule 10,000 Mcg PO DAILY Ropinirole HCl 0.5 Mg Tablet 0.5 Mg PO HS Omeprazole 40 Mg Capsule. 40 Mg PO DAILY Gabapentin 300 Mg Capsule 300 Mg PO QID Feosol (Ferrous Sulfate) 325 Mg Tablet 325 Mg PO DAILY Spironolactone 25 Mg Tablet 25 Mg PO DAILY Mestinon (Pyridostigmine Artemas) 60 Mg Tab 60 Mg PO TID Instructions to patient/family Please see electronic discharge instructions given to patient. Diagnosis/Problems Diagnosis/Problems (1) Myasthenia gravis Status: Acute (2) S/P gastric bypass (3) Malnutrition (4) B12 deficiency (5) History of ventilator dependency (6) Klebsiella pneumonia (7) Osteonecrosis of jaw (8) Gastrointestinal tube present Status: Acute Clinical Quality Measures DVT/VTE Risk/Contraindication: Risk Factor Score Per Nursin RFS Level Per Nursing on Admit: 2=Moderate Contraindications-Pharm: Other *list below* Contraindications-Mechi: Other *list below* Other: SCD's only. Myasthenia Gravis JESSE PHILLIPS DO Jun 17, 2019 13:34 POS
== END 2019-06-17 11:50 | disposition home or self-care (01) | DRG 57 ==
PROVIDERS: ADMIT Internal Medicine; ATTEND Internal Medicine
DX: G70.01 Myasthenia gravis with (acute) exacerbation (principal); H02.422 Myogenic ptosis of left eyelid; H53.2 Diplopia; H55.09 Other forms of nystagmus; E46 Unspecified protein-calorie malnutrition; R64 Cachexia; M87.88 Other osteonecrosis, other site; K90.9 Intestinal malabsorption, unspecified; K94.12 Enterostomy infection; K94.19 Other complications of enterostomy; B37.2 Candidiasis of skin and nail; R53.81 Other malaise; R53.1 Weakness; E53.8 Deficiency of other specified B group vitamins; G43.909 Migraine, unspecified, not intractable, without status migrainosus; K52.9 Noninfective gastroenteritis and colitis, unspecified; M81.0 Age-related osteoporosis without current pathological fracture; F41.9 Anxiety disorder, unspecified; F32.9 Major depressive disorder, single episode, unspecified; Z93.4 Other artificial openings of gastrointestinal tract status; Z87.01 Personal history of pneumonia (recurrent); Z87.19 Personal history of other diseases of the digestive system; Z79.899 Other long term (current) drug therapy
CPT/HCPCS: 36415; 80053; 82962; 85025

== ENCOUNTER 2019-07-29 15:31 | Emergency (ER) | payer MEDICARE, OTHER ==
[~2019-07-29] VITALS: Ht 165.1 cm; Wt 56.8 kg
[~2019-07-29 15:31] MED LIST changes: +BIOT10005 PO; +CALC-231 PO; +CALC-962 PO; +CARV3.122 PO; +CHOL5000 PO; +CYAN500T44 PO; +DOXY100C2 PO; +DULO60CA59 PO; +ERGO50006 PO; +IMMU1VIA SC; +LIPA1CAP4 PO; +MELO15TA39 PO; +MULT1TAB69 PO; +POLY17PO6 PO; +PRAV10TA PO; +PRD20T JT; +PRD20T PO; +PYRI100T2 PO; +SENN-145 PO; +TEMA30CA PO; +TRAM50TA2 PO; +VITA-203 PO
--- NOTE | 2019-07-29 15:35 | NUR ---
Pt given warm blankets
--- NOTE | 2019-07-29 15:38 | ED General ---
General Stated Complaint: FALL Source of Information: Patient Exam Limitations: No Limitations History of Present Illness Date Seen by Provider: Jul 29, 2019 Time Seen by Provider: 15:37 Initial Comments To ER with reports of a fall after she tripped while stepping up onto a curb in the parking lot, did hit the right side of her face, complains of some pain to the right shoulder superiorly and between the shoulder and the base of her neck, right elbow skin tear and right knee pain. Timing/Duration: 1/2 Hour Severity: Moderate Associated Systoms: Denies Symptoms Allergies and Home Medications Allergies Coded Allergies: diphenhydramine (Verified Allergy, Intermediate, MUSCLE PAIN; AGITATION, 06/09/19) promethazine (Verified Allergy, Mild, AGITATION, 06/09/19) Home Medications Biotin 10,000 Mcg Capsule, 10,000 MCG PO DAILY, (Reported) Calcium Citrate/Vitamin D3 1 Each Tablet, 2 TAB.CHEW PO TIDWM, (Reported) 500MG/400 UNITS Carvedilol 3.125 Mg Tablet, 3.125 MG PO BID, (Reported) HOLD FOR HR <55 BPM OR SBP<95 Cholecalciferol (Vitamin D3) 5,000 Unit Capsule, 5,000 UNIT PO DAILY, (Reported) Cyanocobalamin (Vitamin B-12) 500 Mcg Tablet, 500 MCG PO DAILY, (Reported) Duloxetine HCl 60 Mg Capsule.dr, 60 MG PO DAILY, (Reported) Ergocalciferol (Vitamin D2) 50,000 Unit Capsule, 50,000 UNIT PO WEEK, (Reported) Ferrous Sulfate 325 Mg Tablet, 325 MG PO DAILY, (Reported) Gabapentin 300 Mg Capsule, 300 MG PO QID, (Reported) Hydrocodone/Acetaminophen 1 Each Tablet, 1 TAB PO Q6H Prescribed by: JAIRO TORRES on 07/29/19 6588 Immune Globulin,Gamma(IgG) 1 Gm/5 Ml Vial, SC UD, (Reported) Lipase/Protease/Amylase 1 Each Capsule.dr, 3 CAP PO TIDWM, (Reported) Lipase/Protease/Amylase 1 Each Capsule.dr, 2 CAP PO WITH SNACKS, (Reported) Meloxicam 15 Mg Tablet, 15 MG PO DAILY, (Reported) Multivitamin 1 Each Tablet, 2 TAB PO DAILY, (Reported) Omeprazole 40 Mg Capsule.dr, 40 MG PO DAILY, (Reported) Polyethylene Glycol 3350 17 Gm Powd.pack, 17 GM PO DAILY, (Reported) Pravastatin Sodium 10 Mg Tablet, 10 MG PO HS, (Reported) Prednisone 20 Mg Tab, 40 MG PO DAILY@0700 Prescribed by: JESSE PHILLIPS on 06/16/19 1628 Pyridostigmine [place] 60 Mg Tab, 60 MG PO TID, (Reported) Pyridoxine HCl 100 Mg Tablet, 100 MG PO DAILY, (Reported) Ropinirole HCl 0.5 Mg Tablet, 0.5 MG PO HS, (Reported) Sennosides/Docusate Sodium 1 Each Tablet, 1 TAB PO BID, (Reported) Spironolactone 25 Mg Tablet, 25 MG PO DAILY, (Reported) Temazepam 30 Mg Capsule, 30 MG PO HS PRN for SLEEP, (Reported) Tramadol HCl 50 Mg Tablet, 50-100 MG PO BID PRN for PAIN-MODERATE, (Reported) Vitamin A Palmitate 10,000 Unit Capsule, 10,000 UNIT PO DAILY, (Reported) Patient Home Medication List Home Medication List Reviewed: Yes Review of Systems Review of Systems Constitutional: see HPI EENTM: see HPI Respiratory: no symptoms reported Cardiovascular: no symptoms reported Genitourinary: no symptoms reported Musculoskeletal: no symptoms reported Skin: no symptoms reported Psychiatric/Neurological: No Symptoms Reported Hematologic/Lymphatic: No Symptoms Reported Past Nqetbmp-Nnnyce-Bcdqvb Hx Patient Social History Recent Foreign Travel: No Contact w/Someone Who Travel: No Recent Hopitalizations: Yes (05/28/19) Immunizations Up To Date Date of Pneumonia Vaccine: Aug 18, 2012 Date of Influenza Vaccine: Jul 06, 2015 Seasonal Allergies Seasonal Allergies: No Past Medical History Surgeries: Yes (ORIF left hip, right shoulder sx, cholecystectomy, spleenectomy) Respiratory: Yes Pneumonia Currently Using CPAP: No Currently Using BIPAP: No Cardiac: Yes Neurological: Yes (MYASTHENIA GRAVIS) Reproductive Disorders: No Female Reproductive Disorders: Denies Sexually Transmitted Disease: No HIV/AIDS: No Genitourinary: No Gastrointestinal: Yes (GASTRITIS, MALNUTRITION, GASTRIC BYPASS, STOMACH STAPLING) Pancreatitis, Chronic Diarrhea Musculoskeletal: Yes Osteoporosis, Fractures Endocrine: No HEENT: Yes Tonsilitis Loss of Vision: Denies Hearing Impairment: Denies Cancer: No Psychosocial: Yes Anxiety Integumentary: No Blood Disorders: No Adverse Reaction/Blood Tranf: No Family Medical History Diabetes mellitus 19 MOTHER FH: lung cancer 19 FATHER No Pertinent Family Hx Physical Exam Vital Signs Capillary Refill : Height, Weight, BMI Height: 5'5.00" Weight: 113lbs. 0oz. 51.960067br; 20.36 BMI Method:Stated General Appearance: No Apparent Distress, WD/WN Eyes: Bilateral Eye Normal Inspection, Bilateral Eye PERRL, Bilateral Eye EOMI HEENT: PERRL/EOMI, TMs Normal Neck: Full Range of Motion, Normal Inspection Respiratory: No Accessory Muscle Use, No Respiratory Distress Cardiovascular: Regular Rate, Rhythm, Normal Peripheral Pulses Extremity: Normal Capillary Refill, Normal Inspection, Other (abrasion/ecchymosis over the acromioclavicular joint on the right, skin tear over the dorsal aspect right elbow) Neurologic/Psychiatric: Alert, Oriented x3, No Motor/Sensory Deficits Skin: Normal Color, Warm/Dry Progress/Results/Core Measures Suspected Sepsis SIRS Temperature: Pulse: Respiratory Rate: Blood Pressure / Mean: Results/Orders My Orders Orders - JAIRO TORRES APRN Ct Head/Cervical Spine Wo (07/29/19 15:35) Shoulder, Right, 3 Views (07/29/19 15:35) Elbow, Right, 3 Views (07/29/19 15:35) Knee, Right, 3 Views (07/29/19 15:35) Chest 1 View, Ap/Pa Only (07/29/19 15:35) Vital Signs/I&O Capillary Refill : Departure Impression Primary Impression: Clavicle fracture Qualified Codes: S42.031A - Displaced fracture of lateral end of right clavicle, initial encounter for closed fracture Disposition: 01 HOME, SELF-CARE Condition: Stable Departure-Patient Inst. Decision time for Depature: 16:27 Referrals: BRADEN ESCOBAR JOHN T MD SCHWAB, TERRY D MD SELF, MAXWELL MD (PCP/Family) Primary Care Physician LESLIE FINE MICHAEL P MD Patient Instructions: Clavicle Fracture Add. Discharge Instructions: 1. Wear the sling for comfort when you're up walking around 2. Follow-up with your doctor, or call one of the orthopedic surgeons listed. Scripts Hydrocodone/Acetaminophen ([place] 5-325 Tablet) 1 Each Tablet 1 TAB PO Q6H for Pain MDD 10 TABS for 7 Days, #20 TAB Prov: JAIRO TORRES APRN 07/29/19 JAIRO TORRES APRN Jul 29, 2019 15:38 POS
--- NOTE | 2019-07-29 16:14 | Diagnostic Imaging Report ---
CLINICAL INDICATION: Patient status post fall on the right side. Patient hit head. No loss of consciousness. EXAM: Head CT without IV contrast. Axial CT scan of the cervical spine with sagittal and coronal reformations. Auto Exposure Controls were utilized during the CT exam to meet ALARA standards for radiation dose reduction. COMPARISON: None. FINDINGS: Head CT: There is no evidence of acute cerebral infarct, intracranial hemorrhage, or gross mass effect. The brain parenchymal volume appears appropriate for patient's age. There is normal arevalo-white matter distinction. There is no significant midline shift or herniation. There is no evidence of hydrocephalus. The basal cisterns are unremarkable. The skull, extracranial soft tissue, and orbits are unremarkable. The paranasal sinuses are unremarkable. Temporal bones show no significant abnormality. Cervical spine: There is no acute cervical spine fracture. There is grade 1 retrolisthesis of C3 on C4 and C4 on C5 with no pars defect and is degenerative. There are hypertrophic spurs seen throughout the cervical spine and facet arthropathy. There is severe bilateral C3-C4 and C4-C5 neural foramen narrowing due to uncinate spurs. There is severe right C5-C6 neural foramen narrowing and ohrycdad-zz-bptyne left C5-C6 neural foramen narrowing due to uncinate spurs. There is at least aiwj-zy-ogparkps central canal stenosis seen at the C3-C4 level. There is no significant neck soft tissue abnormality. Visualized upper lung varela are clear. IMPRESSION: 1: There is no evidence of acute intracranial process. There is no intracranial hemorrhage or skull fracture. 2: There is no acute cervical spine fracture. 3: There is multilevel cervical spine degenerative disease including grade 1 retrolisthesis of C3 on C4 and C4 on C5. Dictated by: Dictated on workstation # [id number]
[2019-07-29] MEDS ORDERED: HYDR-4226 PO (16:28)
--- NOTE | 2019-07-29 16:30 | Diagnostic Imaging Report ---
INDICATION: Fall. Elbow pain. COMPARISON: None. FINDINGS: Three views of the right elbow show no fractures, dislocations, or other acute bony abnormalities identified. Joint spaces are well maintained throughout. The soft tissues appear unremarkable. No radiopaque foreign bodies are identified. IMPRESSION: No acute fractures or dislocations of the right elbow. Dictated by: Dictated on workstation # [id number]
--- NOTE | 2019-07-29 16:31 | Diagnostic Imaging Report ---
INDICATION: Fall. COMPARISON: 10/18/2018. FINDINGS: Single frontal view of the chest demonstrates normal heart size and pulmonary vascularity. The lungs are well aerated and clear. No large pleural effusion or pneumothorax is seen. The visualized osseous structures show distal right clavicle fracture. IMPRESSION: 1. No acute cardiopulmonary process. 2. Distal right clavicle fracture. Dictated by: Dictated on workstation # [id number]
--- NOTE | 2019-07-29 16:34 | Diagnostic Imaging Report ---
INDICATION: Fall. Knee pain. COMPARISON: None. FINDINGS: Three views of the right knee joint demonstrate no acute fracture or dislocation. No focal osseous lesions are seen. Mild tricompartmental osteoarthritic changes are noted. There is also generalized decreased bone mineral density. No significant joint effusion is seen. The surrounding soft tissue structures are unremarkable. There are no radiopaque foreign bodies. IMPRESSION: 1. No acute fractures or dislocations of the right knee joint. 2. Mild tricompartmental osteoarthritis. 3. Mild generalized diminished bone mineral density concerning for underlying osteopenia/osteoporosis. Correlation with DEXA scan is recommended. Dictated by: Dictated on workstation # [id number]
--- NOTE | 2019-07-29 16:36 | Diagnostic Imaging Report ---
EXAMINATION: Right shoulder at 04:17 p.m. INDICATION: Fell, shoulder pain. FINDINGS: Three views were obtained. As noted on the prior chest exam of 10/18/2018, there is an orthopedic plate and screw fixation device securing a long-standing fracture of the proximal right humerus. The orthopedic hardware appears to be in good position. However, there is a slightly displaced fracture of the distal tip of the right clavicle. No other fracture or acute bony abnormality is noted. There is moderately severe degenerative disease involving the glenohumeral joint and mild degenerative disease of the acromioclavicular joint. The soft tissues are unremarkable. IMPRESSION: 1. There is an acute slightly displaced fracture of the distal tip of the right clavicle. There is no acute bony abnormality noted otherwise. 2. The postsurgical and posttraumatic changes involving the right humerus seen previously are again evident and no different. Dictated by: Dictated on workstation # [id number]
[2019-07-29] MEDS ORDERED: HYDROcodone/APAP 5 MG/325 MG (LORTAB) TAB PO ONE (16:45)
[2019-07-29] MEDS ORDERED: ONDANSETRON 4 MG (ZOFRAN) ORAL DISSOLVE TAB PO ONE (16:45)
[2019-07-29 17:03] VITALS: BP 130/78
== END 2019-07-29 16:50 | disposition home or self-care (01) ==
LOC: EDUNIT# 15:31 → ER 15:32
DX: S42.031A Displaced fracture of lateral end of right clavicle, initial encounter for closed fracture (principal); F41.9 Anxiety disorder, unspecified; Z88.8 Allergy status to other drugs, medicaments and biological substances; Z79.52 Long term (current) use of systemic steroids; Z90.49 Acquired absence of other specified parts of digestive tract; Z90.81 Acquired absence of spleen; Z80.1 Family history of malignant neoplasm of trachea, bronchus and lung; W01.10XA Fall on same level from slipping, tripping and stumbling with subsequent striking against unspecified object, initial encounter; Y92.481 Parking lot as the place of occurrence of the external cause
CPT/HCPCS: 70450; 71045; 72125; 73030; 73080; 73562

== ENCOUNTER → 2019-10-12 | Outpatient (CLI) | payer MEDICARE, OTHER ==
[~2019-10-12] MED LIST changes: +HYDR-4226 PO; -MORP-33 PO; +MORP-68 PO; +OMEP40CA27 PO; -OMEP40CA36 PO; +PYRI100T10 PO; -PYRI100T2 PO; -ROPI0.5T2 PO; +ROPI0.5T4 PO; -TRAM50TA2 PO; +TRM50T PO
--- NOTE | 2019-10-12 16:57 | Diagnostic Imaging Report ---
INDICATION: Thoracic spine pain. COMPARISON: 05/18/2019 TECHNIQUE: Three views of the thoracic spine. FINDINGS: There is a new anterior wedging compression fracture involving the superior endplate of T7. There is approximately 60% of height loss anteriorly. There is some height loss at the superior endplate of L2, which was not included in the [id number] on prior exam. Slight dextrocurvature of the lumbar spine is unchanged. No spondylolisthesis. Degenerative changes are present in the upper lumbar spine. IMPRESSION: 1. There is a compression fracture of the superior endplate of T7 which is new since 05/18/2019. If it will alter the patient's management, consider MRI to evaluate for bone marrow edema or nuclear medicine bone scan. 2. Age-indeterminate height loss of the superior endplate of L2. Dictated by: Dictated on workstation # [id number]
== END ==
LOC: RAD FS 11:50
PROVIDERS: ATTEND Family Medicine
DX: M48.54XA Collapsed vertebra, not elsewhere classified, thoracic region, initial encounter for fracture (principal); M51.36 Other intervertebral disc degeneration, lumbar region
CPT/HCPCS: 72072

== ENCOUNTER → 2019-11-30 | Outpatient (CLI) | payer MEDICARE, OTHER ==
--- NOTE | 2019-11-30 16:36 | Diagnostic Imaging Report ---
EXAMINATION: Chest, 2 views. HISTORY: FALL. COMPARISON: 07/29/2019. FINDINGS: The lungs are clear without edema or pneumonia. No pleural effusion or pneumothorax. The heart size is normal. There has been open reduction and internal fixation of the right proximal humerus, not evaluated on these dedicated chest images. Cholecystectomy clips are seen. A metallic object projecting over the left upper quadrant may be from prior surgery as well. IMPRESSION: Clear lungs. Dictated by: Dictated on workstation # [id number]
--- NOTE | 2019-11-30 16:40 | Diagnostic Imaging Report ---
INDICATION: Fall, pain COMPARISON: Imaging from the same date as well as from 07/29/2019 TECHNIQUE: 2 radiographs of the right clavicle are obtained dated 11/30/2019. FINDINGS: Previously noted fracture involving the distal one third of the right clavicle is again identified. Persistent fracture plane remains with the fracture margins appearing somewhat corticated. No significant osseous bridging. Overall alignment appears similar to the prior exam. Postsurgical changes associated with the proximal right humerus are again noted. Degenerative changes of the glenohumeral joint. Fracturing of the lateral right 3rd rib is present, which is new since July 2019. This is very minimally displaced. IMPRESSION: Interval minimally displaced lateral right 3rd rib fracture without significant pneumothorax within the [id number]. Exact chronicity is uncertain. Ununited fracture involving the distal one third of the right clavicle. Postsurgical and degenerative changes associated with the right shoulder. Dictated by: Dictated on workstation # [id number]
--- NOTE | 2019-11-30 16:44 | Diagnostic Imaging Report ---
INDICATION: Fall, pain. COMPARISON: Imaging from the same date as well as from 07/29/2019. TECHNIQUE: Two radiographs of the right shoulder are dated 11/30/2019. FINDINGS: An ununited fracture involving the distal one/third of the right clavicle is present. The alignment is near anatomic. Plate and screw fixation of the proximal right humerus is noted with associated deformity of the proximal right humerus. No evidence of hardware complication. Irregularity is noted involving the humeral head articular surface which has worsened since the prior examination. A minimally displaced lateral right 3rd rib fracture is new from the prior examination; however, there is suggestion of possible periosteal reaction. No significant pneumothorax. Calcified granuloma within the right lung base. IMPRESSION: Ununited fracture involving the distal one/third of the right clavicle remaining in stable alignment. Post surgical changes associated with the proximal right humerus without evidence of hardware complication. Worsening degenerative changes associated with the glenohumeral joint. Minimally displaced posterior right 3rd rib fracture. Given the appearance, it is favored that this is subacute in nature. Dictated by: Dictated on workstation # [id number]
== END ==
LOC: RAD FS 16:01
PROVIDERS: ATTEND Nurse Practitioner Family
DX: S22.31XA Fracture of one rib, right side, initial encounter for closed fracture (principal); S42.001K Fracture of unspecified part of right clavicle, subsequent encounter for fracture with nonunion; M19.011 Primary osteoarthritis, right shoulder; M89.8X1 Other specified disorders of bone, shoulder; R07.89 Other chest pain; W19.XXXA Unspecified fall, initial encounter
CPT/HCPCS: 71046; 73000; 73030

== ENCOUNTER 2019-12-14 14:13 | Emergency (ER) | payer MEDICARE, OTHER ==
[~2019-12-14] VITALS: Ht 165.1 cm; Wt 50.0 kg
--- OUTSIDE RECORDS SUMMARY | 2019-12-14 14:20 | XMS REPORT | Encounter Summary ---
Author Author [facility] Address Unknown Phone Unavailable Care Team Providers Care Deputy Coroner Name Role Phone Erlinda Massey RN Unavailable Unavailable [facility] Unavailable [phone] Alissa Black RN Unavailable Unavailable Zuhair Poon MD Unavailable Wade Perez MD Unavailable Wade Cornejo MD Unavailable Torie Hurtado MD Unavailable Tika Kessler RN Unavailable Unavailable Mary Marley MD Unavailable Jesus Carbone MD PCP Reason for Visit * Reason Comments Medication Refill Encounter Details Care Team Description Date Type Department Farzana Vu MD [address] [place] [address] 10/19/2019 Refill [facility] [address] [place] [address] Social History Date Tobacco Use Types Packs/Day Years Used Never Smoker Smokeless Tobacco: Never Used Drinks/Week oz/Week Comments Alcohol Use 0 Standard drinks or equivalent 0.0 No Sex Assigned at Date Recorded Not on file Industry Job Start Date Occupation Not on file Not on file Not on file Travel End Travel History Travel Start No recent travel history available. documented as of this encounter Functional Status Date of Assessment Functional Status Response 06/09/2019 Does the patient have a hearing impairment: No 06/09/2019 Does the patient have a visual impairment: No 06/09/2019 Does the patient have impaired ambulation: No 06/09/2019 Does the patient have an activity of daily living No (ADL) impairment: 06/09/2019 Does the patient have an instrumental activity of No daily living (IADL) impairment: Date of Assessment Cognitive Status Response 06/09/2019 Does the patient have a cognitive impairment: No documented as of this encounter Plan of Treatment Not on filedocumented as of this encounter Goals Goal Patient Associated Recent Progress Patient-Stat Aut hor Goal Type Problems ed? Recover from illness Hospital No Melissa Miranda, PAMELA Improve quality of life [facility] No Melissa Calvillo RN documented as of this encounter Visit Diagnoses Not on filedocumented in this encounter
--- OUTSIDE RECORDS SUMMARY | 2019-12-14 14:20 | XMS REPORT | Encounter Summary ---
Author Author [facility] Organization [facility] Address Unknown Phone Unavailable Care Team Providers Care Canvas Repairer Name Role Phone Erlinda Massey RN Unavailable Unavailable Carl Castaneda [facility] Unavailable [phone] Alissa Black RN Unavailable Unavailable Zuhair Poon MD Unavailable Wade Perez MD Unavailable Ranch[place] CordovaWade MD Unavailable Torie Hurtado MD Unavailable Tika Kessler RN Unavailable Unavailable Mary Marley MD Unavailable Jesus Carbone MD PCP Reason for Visit * Reason Comments Prior Authorization Tymlos APPROVED Encounter Details Care Team Description Date Type Department Maria Teresa Whalen MD [address] [facility] [address] [place] [address] [phone] Prior Authorization (Tymlos APPROVED) 09/24/2019 Telephone [facility] [address] [place] [address] Social History Date Tobacco Use Types Packs/Day [...] impairment: No documented as of this encounter Miscellaneous Notes * Telephone Encounter - Daniela Verma LPN - 09/24/2019 2:45 PM INSTRUCTIONAL SERVICES SPECIALIST Approvedtoday Request Reference Number: [id number]. TYMLOS INJ is approved through 08/17/2020 . For further questions, call Received above Email from [employer] notified RUCTIONAL SERVICES SPECIALIST * Telephone Encounter - Daniela Verma LPN - 09/24/2019 2:20 PM INSTRUCTIONAL SERVICES SPECIALIST Received a PA request from hike for Tymlos Went to Prescreen completed form and submitted to insurance [employer] is reviewing your PA request. Typically an electronic response will be r eceived within 72 hours. To check for an update later, open this request from [employer]. You may close this dialog and return to your dashboard to perform other tasks. RUCTIONAL SERVICES SPECIALIST documented in this encounter Plan of Treatment Not on filedocumented as of this encounter Goals Goal Patient Associated Recent Progress Patient-Stat Aut hor Goal Type Problems ed? Recover from illness Hospital No Melissa Miranda, RN Improve quality of life Hospital No Melissa Calvillo, RN documented as of this encounter Visit Diagnoses Not on filedocumented in this encounter
--- OUTSIDE RECORDS SUMMARY | 2019-12-14 14:20 | XMS REPORT | Encounter Summary ---
Author Author [facility] Organization [facility] Address Unknown Phone Unavailable Care Team Providers Care Sandwich Hand Name Role Phone Erlinda Massey RN Unavailable Unavailable Carl Castaneda [facility] Unavailable [phone] Alissa Black RN Unavailable Unavailable Zuhair Poon MD Unavailable Wade Perez MD Unavailable Wade Cornejo MD Unavailable Torie Hurtado MD Unavailable Tika Kessler RN Unavailable Unavailable Mary Marley MD Unavailable Jesus Carbone MD PCP Reason for Visit * Reason Comments Test/procedure * (Routine) Referred By Contact Referred To Contact Status Reason Specialty Diagnoses / Procedures Wade Cornejo MD [address] [facility] [address] [place] [address] Incomplete Encounter Details Care Team Description Date Type Department Maria Teresa Whalen MD [address] [facility] [address] [place], [place] [id number] Postmenopausal osteoporosis 09/07/2019 Clinical [facility] [address] [place] [address] Social History Date Tobacco Use Types Packs/Day [...] ed? Recover from illness Hospital No Melissa Miranda RN Improve quality of life [facility] No Melissa Calvillo RN documented as of this encounter Visit Diagnoses Diagnosis Postmenopausal osteoporosis Senile osteoporosis documented in this encounter
--- OUTSIDE RECORDS SUMMARY | 2019-12-14 14:20 | XMS REPORT | Encounter Summary ---
Author Author [facility] Organization [facility] Address Unknown Phone Unavailable Care Team Providers Care Wax Molder Name Role Phone Erlinda Massye RN Unavailable Unavailable Carl Castaneda [facility] Unavailable [phone] Alissa Black RN Unavailable Unavailable Zuhair Poon MD Unavailable Wade Perez MD Unavailable WeyerhaeuserWade MD Unavailable Torie Hurtado MD Unavailable iTka Kessler RN Unavailable Unavailable Mary Marley MD Unavailable Jesus Crabone MD PCP Reason for Visit * Reason Comments Records Request Encounter Details Care Team Description Date Type Department Maria Teresa Whalen MD [address] [facility] [place] [address] [phone] Records Request 09/14/2019 Telephone [facility] [address] [place] [address] Social History Date Tobacco Use Types Packs/Day [...] Telephone Encounter - Daniela Verma LPN - 09/14/2019 8:26 AM AIRPLANE RIGGER Received a fax from [employer] requesting records for PA for Tymlos Printed and faxed to [phone] L[address] RIGGER documented in this encounter Plan of Treatment Not on filedocumented as of this encounter Goals Goal Patient Associated Recent Progress Patient-Stat Aut hor Goal Type Problems ed? Recover from illness Hospital No Melissa Miranda, PAMELA Improve quality of life [facility] No Melissa Calvillo RN documented as of this encounter Visit Diagnoses Not on filedocumented in this encounter
--- OUTSIDE RECORDS SUMMARY | 2019-12-14 14:20 | XMS REPORT | Clinical Summary ---
Author Author [facility] Organization [facility] Address Unknown Phone Unavailable Care Team Providers Care Tree Cutter Name Role Phone Erlinda Massey RN Unavailable Unavailable Carl Castaneda [facility] Unavailable [phone] Alissa Black RN Unavailable Unavailable Zuhair Poon MD Unavailable Wade Perez MD Unavailable Wade Cornejo MD Unavailable Torie Hurtado MD Unavailable Tika Kessler RN Unavailable Unavailable Mary Marley MD Unavailable Jesus Carbone MD PCP Source Comments Some departments are not documenting in the electronic medical record. If you d o not see the information that you expected, contact Release of Information in [facility] Information Management department at [phone] for further assistan ce in locating additional records.[facility] Allergies Comments Active Allergy Reactions Severity Noted Date Diphenhydramine Hcl MUSCLE PAIN, Medium 08/22/2017 AGITATION Promethazine AGITATION Low 07/15/2015 Medications End Date Status Medication Sig Dispensed Refills Start Date Active DULoxetine DR (CYMBALTA) Take 60 mg by 0 60 mg capsule mouth daily. Active pyridostigmine (MESTINON) Take 60 mg by 0 60 mg tablet mouth three times daily. Active Biotin 10,000 mcg cap Take 1 Cap by 0 mouth daily. Active cyanocobalamin(+) Take 500 mcg 0 (VITAMIN B-12) 500 mcg by mouth tablet daily. Active ferrous sulfate 325 mg Take 325 mg 0 (65 mg iron) tablet by mouth daily. Active pyridoxine (vitamin B6) Take 100 mg 0 100 mg tablet by mouth daily. Active omeprazole DR(+) Take 1 Cap by 90 Cap 3 01 (PRILOSEC) 40 mg capsule mouth daily. 5 Active temazepam (RESTORIL) 30 Take 30 mg by 0 mg capsule mouth at bedtime as needed. Active carvedilol (COREG) 3.125 TAKE ONE 180 Tab 3 0 03/04/ mg tablet TABLET BY 7 MOUTH TWICE DAILY. HOLD FOR HEART RATE LESS THAN 55 BPM OR SYSTOLIC BP LESS THAN 95 Active meloxicam (MOBIC) 15 mg Take 1 tablet 0 tabletIndications: for by mouth arthritis in neck and daily. shoulder Indications: for arthritis in neck and shoulder Active Immune Globulin (Human) Inject under 0 (IGG) (HIZENTRA) 2 the skin. gram/10 mL (20 %) soln Active cholecalciferol(+) Take 5,000 0 (VITAMIN D-3) 5,000 unit Units by tablet mouth daily. Active Calcium Citrate-Vitamin Chew 2 0 D3 500 mg calcium -400 tablets by unit chew mouth three times daily with meals. Active rOPINIRole (REQUIP) 0.5 Take two 60 tablet 0 / mg tablet tablets by 8 mouth at bedtime daily. Additional Information Patient taking differently: 0.5 mg Oral AT BEDTIME DAILY, Reported on 05/28/2019 2:43 PM Active pancrelipase (CREON Take two 250 capsule 3 24,000) 24,000-76,000 capsules by 8 -120,000 units capsule mouth with snacks. Additional Information Patient taking differently: (No dose reported), Oral, (No frequency reported), 3 caps with each meal and 2 with snacks, Reported on 09/07/2019 9:49 AM Active vitamin A 10,000 unit Take one 30 capsule 1 07/19 capsule capsule by 8 mouth daily. Active ergocalciferol (VITAMIN Take one 12 capsule 0 D-2) 50,000 unit capsule capsule by 8 mouth every 7 days. Active spironolactone Take one 90 tablet 0 (ALDACTONE) 25 mg tablet tablet by 9 mouth daily. Take with food. Active gabapentin (NEURONTIN) Take one 0 01 300 mg capsule capsule by 9 mouth four times daily. Active ciplzcguzrao-dnj-thli-FA- Take 1-2 60 capsule 11 vit K 45 mg iron- 800 tablets by 9 mcg-120 mcg cap mouth daily. Fill with covered bariatric multivitamin or select OTC product Additional Information Patient taking differently: 1 tablet Oral DAILY, Fill with covered bariatric multivitamin or select OTC product, Reported on 09/07/2019 9:49 AM Active pravastatin (PRAVACHOL) TAKE 1 TABLET 90 tablet 3 10 mg tablet BY MOUTH ONCE 9 DAILY AT BEDTIME Active abaloparatide (TYMLOS) 80 Inject eighty 3 each 4 mcg (3,120 mcg/1.56 mL) mcg under the 0 injection penIndications: skin daily. postmenopausal Administer osteoporosis into abdomen while sitting or lying down in case of orthostatic hypotension. Indications: decreased bone mass following menopause 01/15/2020 Active insulin pen needles Use one each 100 each 3 10/07 (disposable) (BD UF JIMENA as directed 0 PEN NEEDLES) 32 gauge x daily for 100 32" pen needle days. Use as needed 01/17/2020 Active predniSONE (DELTASONE) 5 Take three 105 tablet 0 0 mg tablet tablets by 0 mouth every 48 hours for 30 days, THEN two tablets every 48 hours for 60 days. 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 Diarrhea 08/04/2018 Malnutrition 08/04/2018 Arthritis 06/23/2018 Overview: neck and shoulder, currently on mobic Spondylosis of lumbosacral region without myelopathy or radiculopathy 05/28/2016 Facet arthropathy, lumbar 05/28/2016 Closed compression fracture of lumbar vertebra 05/28 CAD (coronary artery disease) 04/29/2016 Chronic systolic heart failure 03/13/2016 Abnormal thallium stress test 03/13/2016 Vitamin D deficiency 01/08/2016 Non-ischemic cardiomyopathy 12/21/2015 History of Fidelia-en-Y gastric bypass 10/16/2015 Dumping syndrome 07/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 Myasthenia gravis 07/16/2015 RLS (restless legs syndrome) 07/16/2015 Chronic pancreatitis 07/16/2015 Peripheral neuropathy 07/16/2015 Severe protein-calorie malnutrition 07/16/2015 Resolved Problems Problem Noted Date Resolved Date 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 01/25/2019 Anasarca 2015 11/12/2016 Severe malnutrition 2015 01/25/2019 Diarrhea 07/16/2015 05/14/2016 Enteritis 07/16/2015 07/17/2015 Encounters Care Team Description Date Type Specialty Farzana Vu MD 12/09/2019 Documentation Neurology Maria Teresa Whalen MD Lab Request ([facility]) 11/10/2019 Telephone Endocrinology, [place] Farzana Vu MD 10/19/2019 Refill Neurology Maria Teresa Whalen MD Results 10/08/2019 Telephone Endocrinology Maria Teresa Whalen MD 10/07/2019 Hospital Lab Encounter Maria Teresa Whalen MD 10/07/2019 Refill Endocrinology, [place] [facility] Maria Teresa Whalen MD Prior Authorization ([employer] APPROVED) 09/24/2019 Telephone Endocrinology, [place] [facility] Maria Teresa Whalen MD Records Request 09/14/2019 Telephone Endocrinology, [place] [facility] from Last 3 Months Family History Medical History Relation Name Comments Cancer Father Diabetes Mother Relation Name Status Comments Father Mother Social History Date Tobacco Use Types Packs/Day Years Used Never Smoker Smokeless Tobacco: Never Used Tobacco Cessation: Counseling Given: No Drinks/Week oz/Week Comments Alcohol Use 0 Standard drinks or equivalent 0.0 No Sex Assigned at Date Recorded Not on file Industry Job Start Date Occupation Not on file Not on file Not on file Travel End Travel History Travel Start No recent travel history available. Last Filed Vital Signs Reading Time Taken Comments Vital Sign 101/63 09/07/2019 9:44 AM SYSTEM SUPPORT ANALYST Blood Pressure 56 09/07/2019 9:44 AM SYSTEM SUPPORT ANALYST Pulse 36.8 C (98.2 F) 06/09/2019 12:00 PM CDT Temperature 16 07/08/2019 12:51 PM SYSTEM SUPPORT ANALYST Respiratory Rate 99% 07/08/2019 12:51 PM SYSTEM SUPPORT ANALYST Oxygen Saturation - - Inhaled Oxygen Concentration 54.4 kg (120 lb) 09/07/2019 9:44 AM SYSTEM SUPPORT ANALYST Weight 162.3 cm (5' 3.9") 09/07/2019 9:44 AM SYSTEM SUPPORT ANALYST Height 20.66 09/07/2019 9:44 AM SYSTEM SUPPORT ANALYST Body Mass Index Plan of Treatment Health Maintenance Due Date Last Done Comments MEDICARE ANNUAL WELLNESS 1950 VISIT DTAP/TDAP VACCINES (1 - 11/07/1967 Tdap) PHYSICAL (COMPREHENSIVE) 11/07/1967 EXAM BREAST CANCER SCREENING 1989 SHINGLES RECOMBINANT 11/07/1999 VACCINE (1 of 2) PNEUMONIA (PPSV23) 2014 VACCINE (1 of 1 - PPSV23) INFLUENZA VACCINE 05/18/2020 05/18/2017 (Previously completed) COLORECTAL CANCER 01/06/2027 01/06/2017 SCREENING HEPATITIS C SCREENING Completed 11/19/2015, 11/18/2015 OSTEOPOROSIS Completed 09/07/2019, SCREENING/MONITORING 02/14/2016 Goals Goal Patient Associated Recent Progress Patient-Stat Aut hor Goal Type Problems ed? Recover from illness Hospital No Melissa Miranda, PAMELA Improve quality of life [facility] No Melissa Calvillo RN Procedures Comments Procedure Name Priority Date/Time Associated Diag nosis HC *FREE T4 (REFLEX) Routine 10/07/2019 Osteoporo sis, idiopathic 2:09 PM SYSTEM SUPPORT ANALYST Vitamin D deficiency HC COMPREHENSIVE Routine 10/07/2019 Myasthenia gr mark (HCC) METABOLIC PANEL 2:09 PM SYSTEM SUPPORT ANALYST HC CELIAC SCREEN Routine 10/07/2019 Osteoporosis, idiopathic 2:09 PM SYSTEM SUPPORT ANALYST HC KAPPA QNT FLC(KLFLC) Routine 10/07/2019 Osteop orosis, idiopathic 2:09 PM SYSTEM SUPPORT ANALYST Vitamin D deficiency HC TSH SCREEN Routine 10/07/2019 Osteoporosis, i diopathic 2:09 PM SYSTEM SUPPORT ANALYST Vitamin D deficiency HC PHOSPHOROUS, SERUM Routine 10/07/2019 Osteopor osis, idiopathic 2:09 PM SYSTEM SUPPORT ANALYST Vitamin D deficiency HC 25-OH VITAMIN D Routine 10/07/2019 Osteoporosi s, idiopathic 2:09 PM SYSTEM SUPPORT ANALYST Vitamin D deficiency HC ELECTROPHORESIS-SERUM Routine 10/07/2019 Osteo porosis, idiopathic 2:09 PM SYSTEM SUPPORT ANALYST Vitamin D deficiency from Last 3 Months Results * CELIAC SCREEN (10/07/2019 2:09 PM SYSTEM SUPPORT ANALYST) TTG IgA <0.5 <15 U/mL MAIN LAB Interpretation NORMAL [facility] MAIN LAB Specimen Blood Performing Organization Address [facility] Ph one Number MAIN LAB [address] [place] [address] * FREE T4-FREE THYROXINE (10/07/2019 2:09 PM SYSTEM SUPPORT ANALYST) T4-Free 0.8 0.6 - 1.6 NG/DL [facility] MAIN LAB Specimen Performing Organization Address [facility] one Number MAIN LAB [address] [place] [address] * TSH WITH FREE T4 REFLEX (10/07/2019 2:09 PM SYSTEM SUPPORT ANALYST) TSH 8.25 (H) 0.35 - 5.00 MCU/ML MAIN LAB Specimen Performing Organization Address [facility] one Number MAIN LAB [address] [place] [address] * KAPPA/LAMBDA FREE LIGHT CHAINS (10/07/2019 2:09 PM SYSTEM SUPPORT ANALYST) [place], FLC 1.96 (H) 0.33 - 1.94 MG/DL MAIN LAB L[place], FLC 1.81 0.57 - 2.63 MG/DL MAIN LAB [place]/Lambda 1.08 0.26 - 1.65 MAIN LAB FLC Specimen Blood Performing Organization Address [facility] one Number MAIN LAB [address] [place] [id number] * 25-OH VITAMIN D (D2 + D3) (10/07/2019 2:09 PM SYSTEM SUPPORT ANALYST) Vitamin 42.1 30 - 80 NG/ML MAIN LAB D(25-OH)Total Specimen Performing Organization [facility] one Number MAIN LAB [address] [place] [address] * ELECTROPHORESIS-SERUM PROTEIN (10/07/2019 2:09 PM SYSTEM SUPPORT ANALYST) Total 6.4 6.0 - 8.0 G/DL MAIN LAB Protein-SEP Albumin % 40.2 (L) 48 - 68 % [facility] MAIN LAB Alpha 1 % 5.2 2 - 6 % [facility] MAIN LAB Alpha 2 % 10.9 5 - 15 % [facility] MAIN LAB Beta %,Serum 9.1 9 - 17 % [facility] MAIN LAB Gamma % 34.6 (H) 9 - 21 % [facility] MAIN LAB Interpretation HYPOALBUMINEMIA AND POLYCLONAL [facility] N LAB - SEP GAMMOPATHY CONSISTENT WITH CHRONIC INFLAMMATION Pathologist INTERPRETED BY NARESH CHRISTIE M.D. [facility] MAIN L AB Signature By the PATH SIGNATURE ABOVE , I attest that I have personally formulated the final interpretation expressed in this report and that the above diagnosis is based upon my examination of the slides and/or other material indicated in this report. Specimen Blood Performing Organization Address [facility] Ph [facility] Number [facility] MAIN LAB [address] [place] [address] * PHOSPHORUS (10/07/2019 2:09 PM SYSTEM SUPPORT ANALYST) Phosphorus 3.3Comment: NOTE NEW REFERENCE 2.0 - 4.5 MG/DL [facility] MAIN LAB RANGES Specimen Performing Organization Address [facility] Ph one Number [facility] MAIN LAB [address] [place] [address] * COMPREHENSIVE METABOLIC PANEL (10/07/2019 2:09 PM SYSTEM SUPPORT ANALYST) Sodium 139 137 - 147 MMOL/L [facility] MAIN LAB Potassium 3.9 3.5 - 5.1 MMOL/L [facility] MAIN LAB Chloride 107 98 - 110 MMOL/L [facility] MAIN LAB Glucose 79 70 - 100 MG/DL [facility] MAIN LAB Blood Urea 16 7 - 25 MG/DL [facility] MAIN LAB Nitrogen Creatinine 1.08 (H) 0.4 - 1.00 MG/DL [facility] MAIN LAB Calcium 8.5 8.5 - 10.6 MG/DL [facility] MAIN LAB Total Protein 6.7 6.0 - 8.0 G/DL [facility] MAIN LAB Total Bilirubin 0.4 0.3 - 1.2 MG/DL [facility] MAIN LAB Albumin 2.8 (L) 3.5 - 5.0 G/DL [facility] MAIN LAB Alk Phosphatase 114 (H) 25 - 110 U/L [facility] MAIN LAB AST (SGOT) 92 (H) 7 - 40 U/L [facility] MAIN LAB CO2 28 21 - 30 MMOL/L [facility] MAIN LAB ALT (SGPT) 44 7 - 56 U/L [facility] MAIN LAB Anion Gap 4 3 - 12 [facility] MAIN LAB eGFR Non 50 (L) >60 mL/min [facility] MAIN LAB Comment: Bah[place]ian The eGFR is not validated f or use in drug dosing adjustments. Continue to use estimated creatinine clearance per dosing reference text. Please contact the Clinical Pharmacist for questions. eGFR >60 >60 mL/min [facility] MAIN LAB Bah[place]ian Comment: The eGFR is not validated for use in drug dosing adjustments. Continue to use estimated creatinine clearance per dosing reference text. Please contact the Clinical Pharmacist for questions. Specimen Blood Performing Organization Address City/State/Zipcode Ph one Number MAIN LAB [address] [place] [address] from Last 3 Months Insurance Type Payer Benefit Subscriber ID Effective Phone Address Plan / Dates Group Medicare MEDICARE MEDICARE xxxxxxxxxxx 2012- PART A AND Present B AETNA AETNA xxxxxxxxxx 2012- SUPPLEMENT Present [phone] Advance Directives Patient Process Inspector Explanation Type Date Recorded Advance 07/15/2015 9:55 PM Directive/DPOA Date Inactivated Comments Code Status Date Activated 06/09/2019 4:46 PM Intubation OK DNAR-Full 05/28/2019 8:32 PM Intervention Provider has discussed Code Status Yes w/Patient or Family? Does the patient want any intervention No for a pre-arrest emergency which would necessitate transfer to an ICU setting? 05/28/2019 8:32 PM Full Code 05/28/2019 10:14 AM Provider has discussed Code Status No, more discussi on w/Patient or Family? needed 12/19/2018 4:51 PM Full Code 12/17/2018 10:54 PM Provider has discussed Code Status No, discussion no t w/Patient or Family? necessary based on Dx 12/10/2018 8:24 PM Full Code 12/09/2018 4:40 PM Provider has discussed Code Status No, more discussi on w/Patient or Family? needed 08/11/2018 5:35 PM Full Code 08/04/2018 2:30 AM Provider has discussed Code Status Yes w/Patient or Family?
--- OUTSIDE RECORDS SUMMARY | 2019-12-14 14:20 | XMS REPORT | Encounter Summary ---
Author Author [facility] Organization [facility] Address Unknown Phone Unavailable Care Team Providers Care Grid Operator Name Role Phone Erlinda Massey RN Unavailable Unavailable Carl Castaneda [facility] Unavailable [phone] Alissa Black RN Unavailable Unavailable Zuhair Poon MD Unavailable Wade Perez MD Unavailable ElectraWade MD Unavailable Torie Hurtado MD Unavailable Tika Kessler RN Unavailable Unavailable Mary Marley MD Unavailable Jesus Carbone MD PCP Reason for Visit * Reason Comments Medication Refill Encounter Details Care Team Description Date Type Department Maria Teresa Whalen MD [address] [facility] [address] [place] [address] [phone] 10/07/2019 Refill [facility] [address] [place] [address] Social History Date Tobacco Use Types Packs/Day [...] Improve quality of life Hospital No Melissa Calvillo RN documented as of this encounter Visit Diagnoses Not on filedocumented in this encounter
--- OUTSIDE RECORDS SUMMARY | 2019-12-14 14:20 | XMS REPORT | Encounter Summary ---
Author Author [facility] Organization [facility] Address Unknown Phone Unavailable Care Team Providers Care Semiconductor Wafers Etch Operator Name Role Phone Erlinda Massey RN Unavailable Unavailable Carl Castaneda [facility] Unavailable [phone] Alissa Black RN Unavailable Unavailable Zuhair Poon MD Unavailable Wade Perez MD Unavailable Black OakWade MD Unavailable Torie Hurtado MD Unavailable Tika Kessler RN Unavailable Unavailable Mary Marley MD Unavailable Jesus Carbone MD PCP Reason for Visit * Reason Comments Osteoporosis Encounter Details Care Team Description Date Type Department Maria Teresa Whalen MD [address] [facility] [address] [place] [address] Osteoporosis, idiopathic (Primary Dx); Vitamin D deficiency 09/07/2019 Office Visit [facility] [address] [place] [address] Social History Date Tobacco Use [...] history available. documented as of this encounter Last Filed Vital Signs Reading Time Taken Comments Vital Sign 101/63 09/07/2019 9:44 AM MANAGER FORENSIC Blood Pressure 56 09/07/2019 9:44 AM MANAGER FORENSIC Pulse - - Temperature - - Respiratory Rate - - Oxygen Saturation - - Inhaled Oxygen Concentration 54.4 kg (120 lb) 09/07/2019 9:44 AM MANAGER FORENSIC Weight 162.3 cm (5' 3.9") 09/07/2019 9:44 AM MANAGER FORENSIC Height 20.66 09/07/2019 9:44 AM MANAGER FORENSIC Body Mass Index documented in this encounter Functional Status Date of Assessment [...] impairment: No documented as of this encounter Progress Notes * Maria Teresa Whalen MD - 09/07/2019 9:00 AM MANAGER FORENSIC Subjective: History of Present Illness Marcia Araya is a 68 y.o. female. 65 yo F comes for osteoporosis. PMH included chronic pancreatitis, bariatric s/ p gastric sleeve and oh-en-Y later on. She suffered from malnutrition and deve loped Anasarca and CHF in 2014. She was having explosive diarrhea and abdominal pain after eating. She was put on pancreatic enzymes and was seen Dr. Cornejo for management of her malnutrition.She follows up with dr. Cornejo and was put on V itamin D3 and Calcium. 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 She had hip fracture 5-6 years ago when she fell backward. Latest fracture was b roken finger in October 2016. T11 compression fracture in 2017. Most recently had a R clavicular fracture in July 2019 after fall. Denies maternal or paternal history of fractures. Denies significant EtoH use. Denies active smoking. On pr olonged prednisone taper after recent admission in May for myastehnia crisis . Currently down to 20mg from initial 40mg with planned 5mg taper/week.. Denies current anti-epileptic medications. Fragility fractures: yes Loss of height:no Smoking: no Alcohol : no Diabetes:no Thyroid problems:no Change in weight: stable Calcium and vitamin D supplement: Yes Vitamin D3 5000 daily and calcium citrate 250 mg 2 tabs x 3 times daily Cancer:no Family history of osteoporosis: no Kidney stones:no Glucocorticoids : no Rheumatoid arthritis : no Review of Systems Constitutional: Negative. HENT: Negative. Eyes: Negative. Respiratory: Negative. Cardiovascular: Negative. Gastrointestinal: Positive for diarrhea. Endocrine: Negative. Genitourinary: Negative. Musculoskeletal: Negative. Skin: Negative. Allergic/Immunologic: Negative. Neurological: Negative. Hematological: Negative. Objective: Biotin 10,000 mcg cap Take 1 Cap by mouth daily. Calcium Citrate-Vitamin D3 500 mg calcium -400 unit chew Chew 2 tablets by m outh three times daily with meals. carvedilol (COREG) 3.125 mg tablet TAKE ONE TABLET BY MOUTH TWICE DAILY. HOL D FOR HEART RATE LESS THAN 55 BPM OR SYSTOLIC BP LESS THAN 95 cholecalciferol(+) (VITAMIN D-3) 5,000 unit tablet Take 5,000 Units by mouth daily. cyanocobalamin(+) (VITAMIN B-12) 500 mcg tablet Take 500 mcg by mouth daily. DULoxetine DR (CYMBALTA) 60 mg capsule Take 60 mg by mouth daily. ergocalciferol (VITAMIN D-2) 50,000 unit capsule Take one capsule by mouth e very 7 days. ferrous sulfate 325 mg (65 mg iron) tablet Take 325 mg by mouth daily. gabapentin (NEURONTIN) 300 mg capsule Take one capsule by mouth four times d aily. Immune Globulin (Human) (IGG) (HIZENTRA) 2 gram/10 mL (20 %) soln Inject un fili the skin. meloxicam (MOBIC) 15 mg tablet Take 1 tablet by mouth daily. Indications: fo r arthritis in neck and shoulder tskaeefbnwhf-wuk-hxud-FA-vit K 45 mg iron- 800 mcg-120 mcg cap Take 1-2 tabl ets by mouth daily. Fill with covered bariatric multivitamin or select OTC produ ct omeprazole DR(+) (PRILOSEC) 40 mg capsule Take 1 Cap by mouth daily. pancrelipase (CREON 24,000) 24,000-76,000 -120,000 units capsule Take two ca psules by mouth with snacks. pancrelipase (CREON) 24,000-76,000 -120,000 units capsule Take three capsule s by mouth three times daily with meals. polyethylene glycol 3350 (MIRALAX) 17 g packet Take one packet by mouth aden y. pravastatin (PRAVACHOL) 10 mg tablet TAKE 1 TABLET BY MOUTH ONCE DAILY AT BE DTIME prednisone (DELTASONE) 20 mg tablet two tablets by Per J Tube route daily. pyridostigmine (MESTINON) 60 mg tablet Take 60 mg by mouth three times daily . pyridoxine (vitamin B6) 100 mg tablet Take 100 mg by mouth daily. rOPINIRole (REQUIP) 0.5 mg tablet Take two tablets by mouth at bedtime daily . (Patient taking differently: Take 0.5 mg by mouth at bedtime daily.) senna/docusate (SENOKOT-S) 8.6/50 mg tablet Take one tablet by mouth twice d aily. spironolactone (ALDACTONE) 25 mg tablet Take one tablet by mouth daily. Take with food. temazepam (RESTORIL) 30 mg capsule Take 30 mg by mouth at bedtime as needed. vitamin A 10,000 unit capsule Take one capsule by mouth daily. Vitals: 09/07/19 0944 BP: 101/63 Pulse: 56 Weight: 54.4 kg (120 lb) Height: 162.3 cm (63.9") Body mass index is 20.66 kg/m. BP 101/63 | Pulse 56 | Ht 162.3 cm (63.9") | Wt 54.4 kg (120 lb) | BMI 20.66 kg/m General: Patient in no acute distress, resting comfortably Head: Normocephalic, atraumatic Eyes: EOMI, conjunctiva clear, no scleral icterus Throat: no erythema noted Chest wall: No TTP or deformity noted Cardiac: Regular rate and rhythm, no rubs clicks or murmurs noted Pulmonary: Clear to auscultation bilaterally, no wheezes or crackles auscultated GI: Soft, non-distended. No tenderness to palpation. Bowel sounds active Ext: no lower extremity edema. Pulses intact bilaterally Derm: No bruises or skin rashes noted Psych: Appropriate mood and affect. Assessment and Plan: Osteoporosis - BMD 02/2016 L1-3 - 0.1 and Radius 33% -3.3 - Repeat BMD 09/07/19: L1-L3 0.7, R Femoral neck -1.9, Radius 33% -3.8 - Prior treatment with fosamax, transitioned to prolia in 2017. Underwent teeth extraction shortly after prolia initiation which was complicated by R jaw osteon ecrosis. Unlikely that her necrosis was related to the prolia given the short ti mya to prolia intiation. - Patient very high risk for recurrent fracture, >8 fractures in last 4 year period as well as continued steroid therapy. PLAN: >Initiate Tymlos >continue vitamin D3 and Calcium supplement: follow up with Dr. Cornejo for nutrition management >pt understands the risk of side effect. >Throacic Spine XR ordered >Following labs ordered: Vit D, Ca, Phos, SPEP, light chains, BMP, TSH and 24hr Urine Ca. Osteoporosis- We will rule out secondary causes of osteoporosis. I have romna wright reviewed the bone density and formulated my own interpretation.The spine is 0.7 and the hip is -2.6. We have discussed different therapeutic options. Amy mental issue is that she only had Prolia one time and then stopped the medicatio n without my understanding. She had her last injection 2016. She unfortunately had osteonecrosis. Therefore she cannot get Prolia again her only agent that is available for her as an anabolic agent I would recommend Tymlos I put in the p rescriptions for that and then she will continue to follow-up. We will work wit h her insurance to make sure that she gets it approved Thryoid We will check thyroid functions. Renal We will check a 24 hour urine. Vitamin D. We will check a vitamin D level. At this time I would like you to con tinue the calcium and Vitamin D 2000. This vitamin D will be in addition to the amount in your calcium supplement We will follow up in one year. At that time we will do a repeat bone density. ATTESTATION I personally performed the llanes portions of the E/M visit, discussed case with re batool and concur with resident documentation of history, physical exam, assessm ent, and treatment plan unless otherwise noted. Staff name: Maria Teresa Whalen MD Date: 09/07/2019 GER FORENSIC documented in this encounter Plan of Treatment Order Schedule Name Type Priority Associated Diag noses Expected: 09/07/2019 (Approximate), Expi res: 09/07/2020 CALCIUM-URINE 24HR Lab Routine Osteoporosi s, idiopathic Vitamin D deficiency Expected: 09/07/2019 (Approximate), Expi res: 09/07/2020 CREATININE-URINE 24 HR Lab Routine Osteopo rosis, idiopathic Vitamin D deficiency Expected: 09/07/2019 (Approximate), Expi res: 09/07/2020 ELECTROPHORESIS-UR 24 HR Lab Routine Osteo porosis, idiopathic Vitamin D deficiency Expected: 09/07/2019 (Approximate), Expi res: 09/07/2020 SODIUM-URINE 24 HR Lab Routine Osteoporosi s, idiopathic Vitamin D deficiency Expected: 09/07/2019 (Approximate), Expi res: 09/07/2020 T SPINE AP & LAT 2 VIEWS Imaging Routine Osteo porosis, idiopathic Expected: 09/07/2019 (Approximate), Expi res: 09/07/2020 SCAPULA RIGHT Imaging Routine Osteoporosis, i diopathic documented as of this encounter Goals Goal Patient Associated Recent Progress Patient-Stat Aut hor Goal Type Problems ed? Recover from illness Hospital No Melissa Miranda, PAMELA Improve quality of life Hospital No Melissa Calvillo, PAMELA documented as of this encounter Results * CELIAC SCREEN (10/07/2019 2:09 PM MANAGER FORENSIC) TTG IgA <0.5 <15 U/mL [facility] Interpretation NORMAL [facility] Specimen Blood Performing Organization Address [facility] [place] [place] Ph one Number [facility] [address] [place] [address] * KAPPA/LAMBDA FREE LIGHT CHAINS (10/07/2019 2:09 PM MANAGER FORENSIC) [place], FLC 1.96 (H) 0.33 - 1.94 MG/DL [facility] Lambda, FLC 1.81 0.57 - 2.63 MG/DL [facility] [place]/Lambda 1.08 0.26 - 1.65 [facility] FLC Specimen Blood Performing Organization Address [facility] [place] [place] Ph one Number MAIN LAB [address] [place] [address] * ELECTROPHORESIS-SERUM PROTEIN (10/07/2019 2:09 PM MANAGER FORENSIC) Total 6.4 6.0 - 8.0 G/DL [facility] Protein-SEP Albumin % 40.2 (L) [...] this report. Specimen Blood Performing Organization Address [facility] [place] [place] Ph one Number MAIN LAB [address] [place] [address] * TSH WITH FREE T4 REFLEX (10/07/2019 2:09 PM MANAGER FORENSIC) TSH 8.25 (H) 0.35 - 5.00 MCU/ML MAIN LAB Specimen Performing Organization Address [facility] [place] [place] Ph one Number MAIN LAB [address] [place] [address] * PHOSPHORUS (10/07/2019 2:09 PM MANAGER FORENSIC) Phosphorus 3.3Comment: NOTE NEW REFERENCE 2.0 - 4.5 MG/DL [facility] RANGES Specimen Performing Organization Address City/[facility] [place] Ph one Number MAIN LAB [address] [place] [address] * 25-OH VITAMIN D (D2 + D3) (10/07/2019 2:09 PM MANAGER FORENSIC) Vitamin 42.1 30 - 80 NG/ML MAIN LAB D(25-OH)Total Specimen Performing Organization Address [facility] [place] Ph one Number MAIN LAB [address] [place] [address] documented in this encounter Visit Diagnoses Diagnosis Osteoporosis, idiopathic Idiopathic osteoporosis Vitamin D deficiency Unspecified vitamin D deficiency documented in this encounter
--- OUTSIDE RECORDS SUMMARY | 2019-12-14 14:20 | XMS REPORT | Encounter Summary ---
Author Author [facility] Organization [facility] Address Unknown Phone Unavailable Care Team Providers Care Suture Winder Hand Name Role Phone Erlinda Massey RN Unavailable Unavailable Carl Castaneda [facility] Unavailable [phone] Alissa Black RN Unavailable Unavailable Zuhair Poon MD Unavailable Wade Perez MD Unavailable [place] LakeWade MD Unavailable Torie Hurtado MD Unavailable Tika Kessler RN Unavailable Unavailable Mary Marley MD Unavailable Jesus Carbone MD PCP Encounter Details Care Team Description Date Type Department Maria Teresa Whalen MD [address] Ortho[facility]Med [facility] [address] [place] [address] [phone] 10/07/2019 [facility] Social History Date Tobacco Use Types Packs/Day [...] impairment: No documented as of this encounter Medications at Time of Discharge Start Date End Date Medication Sig Dispensed Refills 09/07/2019 abaloparatide (TYMLOS) 80 Inject eighty 3 each 4 mcg (3,120 mcg/1.56 mL) mcg under the injection penIndications: skin daily. postmenopausal Administer osteoporosis into abdomen while sitting or lying down in case of orthostatic hypotension. Indications: decreased bone mass following menopause Biotin 10,000 mcg cap Take 1 Cap by 0 mouth daily. Calcium Citrate-Vitamin Chew 2 0 D3 500 mg calcium -400 tablets by unit chew mouth three times daily with meals. 03/04/2017 carvedilol (COREG) 3.125 TAKE ONE 180 Tab 3 mg tablet TABLET BY MOUTH TWICE DAILY. HOLD FOR HEART RATE LESS THAN 55 BPM OR SYSTOLIC BP LESS THAN 95 cholecalciferol(+) Take 5,000 0 (VITAMIN D-3) 5,000 unit Units by tablet mouth daily. cyanocobalamin(+) Take 500 mcg 0 (VITAMIN B-12) 500 mcg by mouth tablet daily. DULoxetine DR (CYMBALTA) Take 60 mg by 0 60 mg capsule mouth daily. 08/16/2018 ergocalciferol (VITAMIN Take one 12 capsule 0 D-2) 50,000 unit capsule capsule by mouth every 7 days. ferrous sulfate 325 mg Take 325 mg 0 (65 mg iron) tablet by mouth daily. 06/09/2019 gabapentin (NEURONTIN) Take one 0 300 mg capsule capsule by mouth four times daily. Immune Globulin (Human) Inject under 0 (IGG) (HIZENTRA) 2 the skin. gram/10 mL (20 %) soln 10/07/2019 01/15/2020 insulin pen needles Use one each 100 each 3 (disposable) (BD UF JIMENA as directed PEN NEEDLES) 32 gauge x daily for 100 532" pen needle days. Use as needed meloxicam (MOBIC) 15 mg Take 1 tablet 0 tabletIndications: for by mouth arthritis in neck and daily. shoulder Indications: for arthritis in neck and shoulder 06/09/2019 ornfeqpqdbok-sxm-myzz-FA- Take 1-2 60 capsule 11 vit K 45 mg iron- 800 tablets by mcg-120 mcg cap mouth daily. Fill with covered bariatric multivitamin or select OTC product 07/18/[address](+) Take 1 Cap by 90 Cap 3 (PRILOSEC) 40 mg capsule mouth daily. 08/11/2018 pancrelipase (CREON Take two 250 capsule 3 24,000) 24,000-76,000 capsules by -120,000 units capsule mouth with snacks. 06/30/2019 pravastatin (PRAVACHOL) TAKE 1 TABLET 90 tablet 3 10 mg tablet BY MOUTH ONCE DAILY AT BEDTIME pyridostigmine (MESTINON) Take 60 mg by 0 60 mg tablet mouth three times daily. pyridoxine (vitamin B6) Take 100 mg 0 100 mg tablet by mouth daily. 08/11/2018 rOPINIRole (REQUIP) 0.5 Take two 60 tablet 0 mg tablet tablets by mouth at bedtime daily. 05/11/2019 spironolactone Take one 90 tablet 0 (ALDACTONE) 25 mg tablet tablet by mouth daily. Take with food. temazepam (RESTORIL) 30 Take 30 mg by 0 mg capsule mouth at bedtime as needed. 08/12/2018 vitamin A 10,000 unit Take one 30 capsule 1 capsule capsule by mouth daily. 06/10/2019 10/19/2019 prednisone (DELTASONE) 20 two tablets 60 tablet 3 mg tablet by Per J Tube route daily. documented as of this encounter Plan of Treatment Not on filedocumented as of this encounter Goals Goal Patient Associated Recent Progress Patient-Stat Aut hor Goal Type Problems ed? Recover from illness Hospital No Melissa Miranda RN Improve quality of life [facility] No Melissa Calvillo RN documented as of this encounter Procedures Comments Procedure Name Priority Date/Time Associated Diag nosis HC CELIAC SCREEN Routine 10/07/2019 Osteoporosis, idiopathic 2:09 PM EMBOSSING PRESS OPERATOR HC *FREE T4 (REFLEX) Routine 10/07/2019 Osteoporo sis, idiopathic 2:09 PM EMBOSSING PRESS OPERATOR Vitamin D deficiency HC TSH SCREEN Routine 10/07/2019 Osteoporosis, i diopathic 2:09 PM EMBOSSING PRESS OPERATOR Vitamin D deficiency HC KAPPA QNT FLC(KLFLC) Routine 10/07/2019 Osteop orosis, idiopathic 2:09 PM EMBOSSING PRESS OPERATOR Vitamin D deficiency HC 25-OH VITAMIN D Routine 10/07/2019 Osteoporosi s, idiopathic 2:09 PM EMBOSSING PRESS OPERATOR Vitamin D deficiency HC ELECTROPHORESIS-SERUM Routine 10/07/2019 Osteo porosis, idiopathic 2:09 PM EMBOSSING PRESS OPERATOR Vitamin D deficiency HC PHOSPHOROUS, SERUM Routine 10/07/2019 Osteopor osis, idiopathic 2:09 PM EMBOSSING PRESS OPERATOR Vitamin D deficiency HC COMPREHENSIVE Routine 10/07/2019 Myasthenia gr mark (HCC) METABOLIC PANEL 2:09 PM EMBOSSING PRESS OPERATOR documented in this encounter Results * FREE T4-FREE THYROXINE (10/07/2019 2:09 PM EMBOSSING PRESS OPERATOR) T4-Free 0.8 0.6 - 1.6 NG/DL [facility] Specimen Performing Organization Address [facility] [address] [place] [address] * COMPREHENSIVE METABOLIC PANEL (10/07/2019 2:09 PM EMBOSSING PRESS OPERATOR) Sodium 139 137 - 147 MMOL/L [facility] [...] (L) >60 mL/min [facility] Comment: [place] The eGFR is not validated f or use in drug dosing adjustments. Continue to use estimated creatinine clearance per dosing reference text. Please contact the Clinical Pharmacist for questions. eGFR >60 >60 mL/min [facility] [place] Comment: The eGFR is not validated for use in drug dosing adjustments. Continue to use estimated creatinine clearance per dosing reference text. Please contact the Clinical Pharmacist for questions. Specimen Blood Performing Organization Address [facility] one Number MAIN LAB [address] [place] [address] * CELIAC SCREEN (10/07/2019 2:09 PM EMBOSSING PRESS OPERATOR) TTG IgA <0.5 <15 U/mL MAIN LAB Interpretation NORMAL MAIN LAB Specimen Blood Performing Organization Address [facility] one Number MAIN LAB [address] [place] [address] * KAPPA/LAMBDA FREE LIGHT CHAINS (10/07/2019 2:09 PM EMBOSSING PRESS OPERATOR) [place], FLC 1.96 (H) 0.33 - 1.94 MG/DL MAIN LAB Lambda, FLC 1.81 0.57 - 2.63 MG/DL MAIN LAB [place]/Lambda 1.08 0.26 - 1.65 MAIN LAB FLC Specimen Blood Performing Organization Address [facility] one Number MAIN LAB [address] [place] [id number] * TSH WITH FREE T4 REFLEX (10/07/2019 2:09 PM EMBOSSING PRESS OPERATOR) TSH 8.25 (H) 0.35 - 5.00 MCU/ML MAIN LAB Specimen Performing Organization Address [facility] one Number MAIN LAB [address] [place] [address] * PHOSPHORUS (10/07/2019 2:09 PM EMBOSSING PRESS OPERATOR) Phosphorus 3.3Comment: NOTE NEW REFERENCE 2.0 - 4.5 MG/DL MAIN LAB RANGES Specimen Performing Organization Address [facility] one Number MAIN LAB [address] [place] [address] * 25-OH VITAMIN D (D2 + D3) (10/07/2019 2:09 PM EMBOSSING PRESS OPERATOR) Vitamin 42.1 30 - 80 NG/ML [facility] D(25-OH)Total Specimen Performing Organization Address City/[facility] Ph one Number [facility] [address] [place] [address] * ELECTROPHORESIS-SERUM PROTEIN (10/07/2019 2:09 PM EMBOSSING PRESS OPERATOR) Total 6.4 6.0 - 8.0 G/DL K[facility] [...] this report. Specimen Blood Performing Organization Address City/State/Zipcode Ph one Number [facility] [address] [place] [address] documented in this encounter Visit Diagnoses Diagnosis Osteoporosis, idiopathic Idiopathic osteoporosis Vitamin D deficiency Unspecified vitamin D deficiency Myasthenia gravis (HCC) Myasthenia gravis without exacerbation documented in this encounter
--- OUTSIDE RECORDS SUMMARY | 2019-12-14 14:20 | XMS REPORT | Encounter Summary ---
Author Author [facility] Organization [facility] Address Unknown Phone Unavailable Care Team Providers Care Slide Maker Name Role Phone Erlinda Massey RN Unavailable Unavailable Carl Castaneda [facility] Unavailable [phone] Alissa Black RN Unavailable Unavailable Zuhair Poon MD Unavailable Wade Perez MD Unavailable MuirWade MD Unavailable Torie Hurtado MD Unavailable Tika Kessler RN Unavailable Unavailable Mary Marley MD Unavailable Jesus Carbone MD PCP Reason for Visit * Reason Comments Results Encounter Details Care Team Description Date Type Department Maria Teresa Whalen MD [address] Ortho[facility] [address] [place] [address] Results 10/08/2019 Telephone The [facility] [address] [facility] [address] [place] [address] Social History Date Tobacco Use Types Packs/Day [...] Telephone Encounter - Daniela Verma LPN - 10/11/2019 8:29 AM FINANCIAL COMPLIANCE MANAGER Called Patient relayed message Patient VU Will take it out of pill box NCIAL COMPLIANCE MANAGER * Telephone Encounter - Maria Teresa Whalen MD - 10/09/2019 2:41 PM FINANCIAL COMPLIANCE MANAGER Biotin interferes with the thyroid lab tests. I would recommend stopping it. We can repeat the labs in four weeks. I would not recommend restarting it NCIAL COMPLIANCE MANAGER * Telephone Encounter - Daniela Verma LPN - 10/08/2019 10:44 AM FINANCIAL COMPLIANCE MANAGER Called Patient relayed message Patient states she is taking Biotin in her multiv itamin and a biotin cap as well 5000 mcg Patient states is going to work for last day please call Wade at [phone] with instructions NCIAL COMPLIANCE MANAGER * Telephone Encounter - Maria Teresa Whalen MD - 10/08/2019 8:52 AM FINANCIAL COMPLIANCE MANAGER Your thyroid blood tests are abnormal I was just wondering if you are currently taking biotin. NCIAL COMPLIANCE MANAGER documented in this encounter Plan of Treatment Order Schedule Name Type Priority Associated Diag noses ONE TIME for 3 Occurrences starting 09/19 until 10/09/2020 TSH WITH FREE T4 REFLEX Lab Routine Hypoth yroidism (acquired) documented as of this encounter Goals Goal Patient Associated Recent Progress Patient-Stat Aut hor Goal Type Problems ed? Recover from illness Hospital No Melissa Miranda, RN Improve quality of life [facility] No Jeffri Melissa dupree RN documented as of this encounter Visit Diagnoses Diagnosis Abnormal thyroid blood test Nonspecific abnormal results of thyroid function study Hypothyroidism (acquired) Unspecified hypothyroidism documented in this encounter
--- OUTSIDE RECORDS SUMMARY | 2019-12-14 14:20 | XMS REPORT | Encounter Summary ---
Author Author [facility] Organization [facility] Address Unknown Phone Unavailable Care Team Providers Care Access Liaison Name Role Phone Erlinda Massey RN Unavailable Unavailable Carl Castaneda [facility] Unavailable [phone] Alissa Black RN Unavailable Unavailable Zuhair Poon MD Unavailable Wade Perez MD Unavailable Wade Cornejo MD Unavailable Torie Hurtado MD Unavailable Tika Kessler RN Unavailable Unavailable Mary Marley MD Unavailable Jesus Carbone MD PCP Reason for Referral * Radiology Services (Routine) Referred By Contact Referred To Contact Status Reason Specialty Diagnoses / Procedures Maria Teresa Whalen MD [address] [facility] [address] [place] [address] New Request Radiology Diagnoses Post-menopausal osteoporosis P rocedures BONE DENSITY SPINE/HIP Encounter Details Care Team Description Date Type Department Maria Teresa Whalen MD [address] [facility] [address] [place] [phone] Post-menopausal osteoporosis (Primary Dx ) 09/03/2019 Orders Only The [facility] [address] [place] [address] Social History Date Tobacco Use Types Packs/Day [...] Melissa Miranda RN Improve quality of life [facility] No Melissa Calvillo RN documented as of this encounter Procedures Comments Procedure Name Priority Date/Time Associated Diag nosis BONE DENSITY SPINE/HIP Routine 09/07/2019 Post-me nopausal osteoporosis documented in this encounter Results * BONE DENSITY SPINE/HIP (09/07/2019) Specimen Narrative Performed At This result has an attachment that is n ot available. Performing Organization Address City/State/Zipcode Ph one Number [facility] documented in this encounter Visit Diagnoses Diagnosis Post-menopausal osteoporosis Senile osteoporosis documented in this encounter
--- OUTSIDE RECORDS SUMMARY | 2019-12-14 14:20 | XMS REPORT | Encounter Summary ---
Author Author [facility] Organization [facility] Address Unknown Phone Unavailable Care Team Providers Care Dry Cell Battery Assembler Name Role Phone Erlinda Massey RN Unavailable Unavailable Carl Castaneda [facility] Unavailable [phone] Alissa Black RN Unavailable Unavailable Zuhair Poon MD Unavailable Wade Perez MD Unavailable [place] MD Unavailable Torie Hurtado MD Unavailable Tika Kessler RN Unavailable Unavailable Mary Marley MD Unavailable Jesus Carbone MD PCP Reason for Visit * Reason Comments Lab Request [facility] Encounter Details Care Team Description Date Type Department Maria Teresa Whalen MD [address] [facility]ilion [address] [place] [address] [phone] Lab Request ([facility]) 11/10/2019 Telephone The [facility] [address] [place], [place] [id number] Social History Date Tobacco Use Types Packs/Day [...] Telephone Encounter - Daniela Verma LPN - 11/10/2019 3:58 PM CDT Received a call from Patient stating she doesn't feel safe coming to [facility] with the COVID-19 Request lab orders be faxed to [facility] in [place] Printed and faxed to [phone] documented in this encounter Plan of Treatment Not on filedocumented as of this encounter Goals Goal Patient Associated Recent Progress Patient-Stat Aut hor Goal Type Problems ed? Recover from illness Hospital No Melissa Miranda, RN Improve quality of life [facility] No Melissa Calvillo, RN documented as of this encounter Visit Diagnoses Not on filedocumented in this encounter
--- OUTSIDE RECORDS SUMMARY | 2019-12-14 14:20 | XMS REPORT | Encounter Summary ---
Author Author [facility] Organization [facility] Address Unknown Phone Unavailable Care Team Providers Care Litigation Paralegal Name Role Phone Erlinda Massey RN Unavailable Unavailable Cral Castaneda [facility] Unavailable [phone] Alissa Black RN Unavailable Unavailable Zuhair Poon MD Unavailable Wade Perez MD Unavailable Wade Cornejo MD Unavailable Torie Hurtado MD Unavailable Tika Kessler RN Unavailable Unavailable Mary Marley MD Unavailable Jesus Carbone MD PCP Encounter Details Care Team Description Date Type Department Farzana Vu MD [address] [place] [address] 12/09/2019 Documentation [facility] [address] [place] [address] Social History Date Tobacco Use [...] Melissa Miranda, RN Improve quality of life [facility] No Melissa Calvillo RN documented as of this encounter Visit Diagnoses Not on filedocumented in this encounter
--- OUTSIDE RECORDS SUMMARY | 2019-12-14 14:21 | XMS REPORT | Encounter Summary ---
Author Author [facility] Organization [facility] Address Unknown Phone Unavailable Care Team Providers Care Linen Room Houseperson Name Role Phone Erlinda Massey RN Unavailable Unavailable Carl Castaneda [facility] Unavailable [phone] Alissa Black RN Unavailable Unavailable Zuhair Poon MD Unavailable Wade Perez MD Unavailable Wade Cornejo MD Unavailable Torie Hurtado MD Unavailable Tika Kessler RN Unavailable Unavailable Mary Marley MD Unavailable Jesus Carbone MD PCP Reason for Visit * Reason Comments Prior Authorization [facility] Encounter Details Care Team Description Date Type Department Farzana Vu MD [address] [place] [address] Prior Authorization ([facility]) 08/31/2019 Telephone [facility] [address] [place] [address] Social History Date Tobacco Use [...] encounter Miscellaneous Notes * Telephone Encounter - Amarilis Duval RN - 09/02/2019 9:19 AM PANEL EDGE SEALER Encrypted email sent from Brittney of pt's [place] approval through [employer]. Drug: [facility] inj 10/50 mL Ref#: [id number] Valid: 3 months through 12/01/19 under Medicare Part D Reviewed by: Marie GALVEZ Letter sent to medical records. Pooja/[facility] stated pt has been LVM for call back to discuss delivery of Ig. L EDGE SEALER * Telephone Encounter - Amarilis Duval RN - 08/31/2019 9:25 AM PANEL EDGE SEALER Pt LVM stating Ig was not approved through Medicare D. RN informed pt, this has been discussed with [facility]. RN was informed by [facility], updated cl inical documents were needed. RN to keep pt updated. Pt thankful. RN faxed OV dated 07/13/19, CBC/diff and CMP (both dated 07/13/19) to [facility] at [phone][place] [id number]. [facility] emailed of fax. L EDGE SEALER documented in this encounter Plan of Treatment Not on filedocumented as of this encounter Goals Goal Patient Associated Recent Progress Patient-Stat Aut hor Goal Type Problems ed? Recover from illness Hospital No Melissa Miranda, RN Improve quality of life [facility] No Melissa Calvillo, RN documented as of this encounter Visit Diagnoses Not on filedocumented in this encounter
--- OUTSIDE RECORDS SUMMARY | 2019-12-14 14:21 | XMS REPORT | Encounter Summary ---
Author Author [facility] Organization [facility] Address Unknown Phone Unavailable Care Team Providers Care Video Photographer Name Role Phone Erlinda Massey RN Unavailable Unavailable Carl Castaneda [facility] Unavailable [phone] Alissa Black RN Unavailable Unavailable Zuhair Poon MD Unavailable Wade Perez MD Unavailable Wade Cornejo MD Unavailable Torie Hurtado MD Unavailable Tika Kessler RN Unavailable Unavailable Mary Marley MD Unavailable Jesus Carbone MD PCP Encounter Details Care Team Description Date Type Department Wade Cornejo MD [address] Orth[facility] [address] [place], [place] [id number] Unspecified protein-calorie malnutrition (HCC) 07/08/2019 [facility] [address] [address] Social History Date Tobacco Use Types Packs/Day [...] Date End Date Medication Sig Dispensed Refills Biotin 10,000 mcg cap Take 1 Cap [...] the skin. 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 01/25/2019 09/07/2019 doxycycline(+) Take one 60 capsule 4 (VIBRAMYCIN) 100 mg capsule by capsule mouth twice daily. 08/11/2018 09/07/2019 pancrelipase (CREON) Take three 250 capsule 3 24,000-76,000 -120,000 capsules by units capsule mouth three times daily with meals. 12/11/2018 09/07/2019 polyethylene glycol 3350 Take one 12 each 1 (MIRALAX) 17 g packet packet by mouth daily. 06/10/2019 10/19/2019 prednisone (DELTASONE) 20 two tablets 60 tablet 3 mg tablet by Per J Tube route daily. 12/10/2018 09/07/2019 senna/docusate Take one 30 tablet 1 (SENOKOT-S) 8.6/50 mg tablet by tablet mouth twice daily. documented as of this encounter Plan of Treatment Not on filedocumented as of this encounter Goals Goal Patient Associated Recent Progress Patient-Stat Aut hor Goal Type Problems ed? Recover from illness Hospital No Melissa Miranda RN Improve quality of life Hospital No Melissa Calvillo RN documented as of this encounter Procedures Comments Procedure Name Priority Date/Time Associated Diag nosis HC VITAMIN A Routine 07/08/2019 Malnutrition, u nspecified 1:54 PM TRAINING PROJECT MANAGER type (HCC) HC 25-OH VITAMIN D Routine 07/08/2019 Malnutritio n, unspecified 1:54 PM TRAINING PROJECT MANAGER type (HCC) Vitamin D deficiency documented in this encounter Results * VITAMIN A (07/08/2019 1:54 PM TRAINING PROJECT MANAGER) [facility] Vitamin A 58.7 REFERENCE LAB Comment: Reference range: 32.5 to 78.0 Unit: mcg/dL ADDITIONAL INFORMATION This test was developed and its performance characteristics determined by [facility] in a manner consistent with CLIA requirements. This test has not been cleared or approved by the U.S. Food and Drug Administration. [facility], [address] [place] [address] Specimen Blood Performing Organization Address [facility] Ph one Number REFERENCE LAB REFERENCE LAB See results for address. * 25-OH VITAMIN D (D2 + D3) (07/08/2019 1:54 PM TRAINING PROJECT MANAGER) [facility] Vitamin 16.8 (L) 30 - 80 NG/ML [facility] D(25-OH)Total Specimen Blood Performing Organization Address City/[facility] Ph one Number [facility] [address] [place] [address] documented in this encounter Visit Diagnoses Diagnosis Malnutrition, unspecified type (HCC) Vitamin D deficiency Unspecified vitamin D deficiency documented in this encounter
--- OUTSIDE RECORDS SUMMARY | 2019-12-14 14:21 | XMS REPORT | Encounter Summary ---
Author Author [facility] Organization [facility] Address Unknown Phone Unavailable Care Team Providers Care Ton Cylinder Inspector Name Role Phone Erlinda Massey RN Unavailable Unavailable Carl Castaneda [facility] Unavailable [phone] Alissa Black RN Unavailable Unavailable Zuhair Poon MD Unavailable Wade Perez MD Unavailable Wade Cornejo MD Unavailable Torie Hurtado MD Unavailable Tika Kessler RN Unavailable Unavailable Mary Marley MD Unavailable Jesus Carbone MD PCP Reason for Visit * Reason Comments Medication Refill Encounter Details Care Team Description Date Type Department Humphrey Segura MD [address] [facility] [place], [place] [phone] Medication Refill 06/30/2019 Refill [facility] [address] [facility] [place] [address] Social History Date Tobacco Use Types Packs/Day [...] Melissa Miranda, PAMELA Improve quality of life [facility] No Melissa Calvillo RN documented as of this encounter Visit Diagnoses Not on filedocumented in this encounter
--- OUTSIDE RECORDS SUMMARY | 2019-12-14 14:21 | XMS REPORT | Encounter Summary ---
Author Author [facility] Organization [facility] Address Unknown Phone Unavailable Care Team Providers Care Estate Conservator Name Role Phone Erlinda Massey RN Unavailable Unavailable Carl Castaneda [facility] Unavailable [phone] Alissa Black RN Unavailable Unavailable Zuhair Poon MD Unavailable Wade Perez MD Unavailable Wade Cornejo MD Unavailable Torie Hurtado MD Unavailable Tika Kessler RN Unavailable Unavailable Mary Marley MD Unavailable Jesus Carbone MD PCP Reason for Visit * Reason Comments Other malnutrition Encounter Details Care Team Description Date Type Department Wade Cornejo MD [address] Orth[facility] Pavilion [address] [place] [address] Malnutrition, unspecified type (HCC) (Pr imary Dx); Vitamin D deficiency 07/08/2019 Office Visit [facility] [address] [address] Social History Date Tobacco Use Types [...] Signs Reading Time Taken Comments Vital Sign 113/65 07/08/2019 12:51 PM ASIC DESIGN ENGINEER Blood Pressure 65 07/08/2019 12:51 PM ASIC DESIGN ENGINEER Pulse - - Temperature 16 07/08/2019 12:51 PM ASIC DESIGN ENGINEER Respiratory Rate 99% 07/08/2019 12:51 PM ASIC DESIGN ENGINEER Oxygen Saturation - - Inhaled Oxygen Concentration 56.2 kg (123 lb 14.4 oz) 07/08/2019 12:51 PM ASIC DESIGN ENGINEER Weight 165.1 cm (5' 5") 07/08/2019 12:51 PM ASIC DESIGN ENGINEER Height 20.62 07/08/2019 12:51 PM ASIC DESIGN ENGINEER Body Mass Index documented in this encounter [...] impairment: No documented as of this encounter Patient Instructions * Patient Instructions* Wade Cornejo MD - 07/08/2019 1:00 PM ASIC DESIGN ENGINEER 1. I think you are doing well from a nutritional standpoint. Let's stop the tube feeds completely. We need at least a couple of weeks to make sure that your cristina ght is stable before removing the tube. 2. I think you're going to be OK with just over the counter vitamin A (5000 unit s per day) and vitamin D (2000 units per day). We'll check blood levels of these vitamins today. Call the Friday after to discuss the results. 3. I'll set up an appointment with Dr. Whalen. DESIGN ENGINEER documented in this encounter Progress Notes * Wade Cornejo MD - 07/08/2019 1:00 PM ASIC DESIGN ENGINEER Date of Service: 07/08/2019 Subjective: Marcia Araya is a 68 y.o. female. History of Present Illness Ms. Araya returns for a recheck. We last saw her in March. She was hospital ized at [facility] in the ICU last month for 11 days because of a myasthenia gravis cr lia. She still has some diplopia. At the last visit, we reduced her tube feeding from 4 cartons per night to 2 car tons per night. This resulted in an improvement in daytime appetite. She has h ad no change in weight. The serum albumin was recently normal. She denies stea torrhea or diarrhea. She has had some leakage around her tube when she eats, bu t not when she is doing the nocturnal feeding. She is taking ocwa-lkr-gtljqyy v itamin A 5000 units daily, ewlb-tfw-pxkeytc vitamin D 2000 units daily and ergo calciferol 50,000 units once weekly. Until October, she was also taking a vitamin A supplement, 10,000 units daily. She is doing her best to eat an appropriate low-fat diet. She is scheduled for a bone density study in [place]. She was seen by Dr. Karli mcgowan here 2 years ago, but she was having severe problems with osteonecros is of the jaw at that time. Her most recent bone density at [facility] was in 2015. Review of Systems Eyes: Positive for visual disturbance. Endocrine: Positive for heat intolerance. Neurological: Positive for headaches. Psychiatric/Behavioral: Positive for dysphoric mood and sleep disturbance. The p atient is nervous/anxious. All other systems reviewed and are negative. Objective: Biotin 10,000 mcg cap Take 1 [...] tablet Take 500 mcg by mouth daily. doxycycline(+) (VIBRAMYCIN) 100 mg capsule Take one capsule by mouth twice d aily. DULoxetine DR (CYMBALTA) 60 mg capsule Take [...] fo r arthritis in neck and shoulder mmtymutlcvnq-ynk-kect-FA-vit K 45 mg iron- 800 mcg-120 mcg [...] Take one capsule by mouth daily. Vitals: 07/08/19 1251 BP: 113/65 Pulse: 65 Resp: 16 SpO2: 99% Weight: 56.2 kg (123 lb 14.4 oz) Height: 165.1 cm (65") Body mass index is 20.62 kg/m. Physical Exam Constitutional: She is oriented to person, place, and time. She appears well-dev eloped and well-nourished. Excellent subcutaneous fat and somatic protein stores. HENT: Head: Normocephalic. Eyes: Conjunctivae are normal. Neck: Normal range of motion. Cardiovascular: Normal rate, regular rhythm, normal heart sounds and intact dist al pulses. Pulmonary/Chest: Effort normal and breath sounds normal. Abdominal: Soft. Bowel sounds are normal. Musculoskeletal: Normal range of motion. Neurological: She is alert and oriented to person, place, and time. Skin: Skin is warm and dry. Psychiatric: She has a normal mood and affect. Her behavior is normal. Nursing note and vitals reviewed. Assessment and Plan: 1. Malnutrition, improved 2. History of fat-soluble vitamin deficiency 3. Myasthenia gravis 4. Osteoporosis 5. Osteonecrosis of the jaw Plan: She is doing quite well from a nutritional standpoint. I have asked her t o stop tube feeds. We will need several weeks to confirm weight stability befor e removing her tube. I am optimistic that she will do well without supplemental nutrition. We will obtain blood today for measurement of vitamin D and vitamin A, and she will call in about 10 days to discuss the results. We will schedule a follow-up appointment for a bone density study and a visit with with Dr. Radha garza. I will see her again in about 3 months. DESIGN ENGINEER documented in this encounter Plan of Treatment Not on filedocumented as of this encounter Goals Goal Patient Associated Recent Progress Patient-Stat Aut hor Goal Type Problems ed? Recover from illness Hospital No Melissa Miranda, PAMELA Improve quality of life [facility] No Melissa Calvillo RN documented as of this encounter Results * VITAMIN A (07/08/2019 1:54 PM ASIC DESIGN ENGINEER) Vitamin A 58.7 REFERENCE LAB Comment: Reference range: 32.5 to 78.0 Unit: mcg/dL ADDITIONAL INFORMATION This test was developed and its performance characteristics determined by [facility] in a manner consistent with CLIA requirements. This test has not been cleared or approved by the U.S. Food and Drug Administration. [facility], [address] [facility], [place] [address] Specimen Blood Performing Organization Address City/[facility] Ph one Number REFERENCE LAB REFERENCE LAB See results for address. * 25-OH VITAMIN D (D2 + D3) (07/08/2019 1:54 PM ASIC DESIGN ENGINEER) Vitamin 16.8 (L) 30 - 80 NG/ML [facility] D(25-OH)Total Specimen Blood Performing Organization Address City/[facility] one Number [facility] [address] [place] [address] documented in this encounter Visit Diagnoses Diagnosis Malnutrition, unspecified type (HCC) Vitamin D deficiency Unspecified vitamin D deficiency documented in this encounter
--- OUTSIDE RECORDS SUMMARY | 2019-12-14 14:21 | XMS REPORT | Encounter Summary ---
Author [facility] Address Unknown Phone Unavailable Care Team Providers Care Labor Supervisor Name Role Phone Erlinda Massey RN Unavailable Unavailable Carl Castaneda [facility] Unavailable [phone] Alissa Black RN Unavailable Unavailable Zuhair Poon MD Unavailable Wade Perez MD Unavailable Wade Cornejo MD Unavailable Torie Hurtado MD Unavailable Tika Kessler RN Unavailable Unavailable Mary Marley MD Unavailable Jesus Carbone MD PCP Reason for Visit * Reason Comments Follow Up Neuromuscular Disease Myasthenia Gravis Encounter Details Care Team Description Date Type Department Farzana Vu MD [address] [place] [address] Myasthenia gravis (HCC) (Primary Dx) 07/13/2019 Office Visit [facility] [address] [place] [address] Social History Date Tobacco Use [...] Signs Reading Time Taken Comments Vital Sign 116/68 07/13/2019 11:13 AM MAINTENANCE SUPERINTENDENT Blood Pressure 62 07/13/2019 11:13 AM MAINTENANCE SUPERINTENDENT Pulse - - Temperature - - Respiratory Rate - - Oxygen Saturation - - Inhaled Oxygen Concentration 56.7 kg (125 lb) 07/13/2019 11:13 AM MAINTENANCE SUPERINTENDENT Weight 165.1 cm (5' 5") 07/13/2019 11:13 AM MAINTENANCE SUPERINTENDENT Height 20.8 07/13/2019 11:13 AM MAINTENANCE SUPERINTENDENT Body Mass Index documented in this encounter [...] this encounter Patient Instructions * Patient Instructions* Makayla Coffey MD - 07/13/2019 11:00 AM MAINTENANCE SUPERINTENDENT Mrs. Araya - It was very nice to see you today. Dr. Vu's plan is as fol lows: Prednisone taper as follows below: Decrease prednisone to 40 mg every other day starting tomorrow. Then in August decrease to 30 mg every other day then In September decrease to 20 mg every other day In October decrease to 15 every other day In November decrease to 10 every other dayObtain lab work today(CBC, CMP) Obtain lab work today. You will also need labs in the form of CBC with diff a nd CMP drawn monthly locally. Follow ups as scheduled and in 1 year. Please reach out to our office if you have any questions or concerns regarding daniel guero's visit with Dr. Vu. My direct phone number is [phone]. If you have any scheduling needs, please contact Tamiko at phone number [phone]. Have a great day and take care! Giles Jean LPN Department of Neurology- Neuromuscular Team TENANCE SUPERINTENDENT documented in this encounter Progress Notes * Makayla Coffey MD - 07/13/2019 11:00 AM MAINTENANCE SUPERINTENDENT Date of Service: 07/13/2019 Subjective: Marcia Araya is a 68 y.o. female. History of Present Illness She is doing better compared to last visit. She was recently admitted to the [facility] on 05/28/2019 due to altered mental status and increased SOB, found to hav e MG crisis. Initially got intubated and completed PLEX 5 sessions and started o n prednisone 40mg Qday with continued mestinon 60mg TID. It was thought that she had exacerbation from sepsis secondary to pneumonia completed antibiotics for 7 days. She was then discharged to rehab for a week then continued outpatient PT 2 times a week. She was also found to have small bowel obstruction around the J tube, underwent IR prior to discharge. However, still reports leakage from the tube. She still feels in weakness in both arms. No difficulty breathing or swallowing. She reports having old T5 fracture, new T11 fracture on DEXA on 05/18 because of shoulder, back pascual n, neck pain. She states that she has droopy eyelid on the left is much better. No diplopia any longer. She recently saw Dr. Cornejo for nutrition and was told th at J tube can be removed in 2 weeks if no weight loss. No speech changes. Still needs to push up from the chair with her hands to get up. No other concerns at t his time. Talking: Intermittent slurring or nasal speech Chewing: Fatigue with soft food Swallowing: Normal Breathing: Shortness of breath with exertion Impairment of ability to brush teeth or comb hair: Extra effort, but no rest per iods needed Impairment of ability to arise from chair: Moderate, always uses arms Double vision: None Eyelid droop: Daily, but not constant MG-ADL Score: 9 Review of Systems Constitutional: Positive for diaphoresis. HENT: Positive for dental problem and voice change. Eyes: Positive for visual disturbance. Respiratory: Positive for cough and shortness of breath. Endocrine: Positive for heat intolerance. Musculoskeletal: Positive for myalgias. Neurological: Positive for headaches. Psychiatric/Behavioral: Positive for sleep disturbance. The patient is nervous/a nxious. Objective: Biotin 10,000 mcg cap Take 1 [...] fo r arthritis in neck and shoulder fzxldpyhwtvg-edd-gvdl-FA-vit K 45 mg iron- 800 mcg-120 mcg [...] Take one capsule by mouth daily. Vitals: 07/13/19 1113 BP: 116/68 Pulse: 62 Weight: 56.7 kg (125 lb) Height: 165.1 cm (65") Body mass index is 20.8 kg/m. Physical Exam Neurological examination: Mental Status: Alert, oriented to time, place and person CN II thru XII: Pupils 3mm, reactive to light and accommodation, intact extraocu lar movements, intact facial sensation, intact hearing, symmetric palatal eleva tion, able to shrug shoulders equally on both sides, tongue midline. Palpebral Fissure 6/4 Orb Oculi 5/5 Orb Adele 5/5 Tongue 5/5 Speech: No Dysarthria Motor Exam: Need to use both hands to push up from the chair Neck flexors: 3+ Neck extensors: 5 Right Left Right Left Shoulder abductors: 5 5 Hip flexion: 4+ 4 Elbow flexors: 5 5 Hip abduction: Elbow extensors: 5 5 Hip Adduction: Wrist extensors: 5 5 Knee extension: 5 5 Wrist flexors: 5 5 Knee flexion: 5 5 Finger flexors: 5 5 Ankle dorsiflexion: 5 5 Finger extensors: 5 5 Ankle plantar flexion: 5 5 Finger abductors: 4 5 Ankle eversion: Thumb abductors: Ankle inversion: Toe extension: Toe flexion: Tone R/L Bishop scale: UE:0/0 LE:0/0 Sensory: light touch intact Coordination: Normal finger to nose, heel to hester Reflexes: Reflex Right Left Brachioradialis 2 2 Biceps 2 2 Triceps 2 2 Knee 2 2 Ankle 0 0 Jaw Jerk Gait and Station: normal based steady gait. Could heel walk, toe walk and tandem . FVC 74% this visit. Assessment and Plan: Impression: Acetylcholine receptor antibody binding titer positive myasthenia gravis. The patient with current MG ADL of 9 with improving in MG symptoms. Exam showed improved weakness since the last visit. She was recently hospitalized for MG crisis in 05/2019 and started on prednisone 40mg Qday and mestinon 60mg TID since then. She is currently on hizentra 25g/we ek as well. As her MG symptoms have improved, will taper down prednisone. Previously elevated AST and ALT in 05/2019 during hospitalization but no labs si nce then. Will repeat CMP today to check LFT. 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 Baez. Current ly,on doxycycline and undergoing hyperbaric oxygen therapy. She is on J tube for nutrition supplement as well. Reports leakage through the J tube since hospital ization. Plan -Prednisone taper as follows below: Decrease prednisone to 40 mg every other day starting tomorrow. The n in August decrease to 30 mg every other day then In September decrease to 20 mg every other day In October decrease to 15 every other day In November decrease to 10 every other day -Obtain lab work today(CBC, CMP) -Continue SCIG 25g/week -Patient to contact the PCP regarding the J tube leakage -Follow ups as scheduled and in 1 year. Patient seen and discussed with . I saw and evaluated the patient. I agree with the findings and plan of care as d ocumented in the resident's note. I had the pleasure of evaluating Marcia Araya in conjunction with the clinical neurophysiology fellow. She describes still drooping of the left eye, but no br eathing or swallowing issues. She had a significant discussion about her PEG tu be feeding. She is eating orally, but it turns out her PEG tube was placed sam use of jaw osteonecrosis and is being regulated by Dr. Cornejo and Dr. Baez. However, she is having leakage from the tube and she has recently seen Dr. Cornejo only 2 weeks ago, who did not think it is the right time yet to remove the tube. Maintaining it, whether from inconvenience care or the smell is not something she is interested in, and therefore, she is having issues with that. Her feedi ng tube again was due to her jaw necrosis, which required hyperbaric oxygen in t he last year, but also debridement and removal of some of the bone there in that area. She describes the arms and legs being unchanged. She is stronger s mega having been admitted to the hospital for sepsis and then NG crisis and intu bation for roughly 10 days in the time interval between 05/28/2019 and 9, during which she received plasma exchange times 5, therefore, in negative ins piratory force of -16, this went up to a negative inspiratory force of -60 towar ds the discharge, then she went to rehab and now she is continuing to be active. She is back on SCIG 14 g one day and 11 g the other day on a weekly basis, tot aling 25 g of subcutaneous immunoglobulin. In the hospital, she had increased l iver enzymes, and however, these normalized by 05/31/2019. In addition, her lab s from 06/09/2019 show hemoglobin 11.9, platelets 403, glucose 104, creatinine 0 .6. Her AST and ALT from 12/31/2018 were 85 and 43, and the most recent AST and ALT from 05/31/2019 are ok and 27. To my examination, she has 6 and 4 mm palpebral fissures of full eye motion with out any diplopia. 5/5 upper and lower face strength with 5/5 tongue. Neck flex ion is 3+ and neck extension is 5. Shoulder abduction, elbow flexion and extens ion, and crew chief are 5/5. Interossei are 5 on the right, 4 on the left. At lower extremities, she is 4+ at hip flexion and 5 at knee and ankle flexion extension. She has to push herself to stand. Her gait is normal. Reflexes are 2. Sensa tion is intact to touch. Her MG-ADL today is 7 and was previously 9. Her FVC was 2.33, being 74% of pred icted. Impression: Acetylcholine receptor antibody binding titer positive myasthenia g ravis in a patient, who currently has improvement of MG-ADL down to 7 from previ ous value of 9 with improvement of her MG symptoms, status post plasma exchange in the time interval between 05/28/2019 and 06/09/2019 and currently on predniso ne, which was started in the hospital stay after treatment of her sepsis at 40 m g daily and in addition to baseline treatment with Mestinon 60 t.i.d. and subcut aneous immunoglobulin 25 g weekly. Lumbar degenerative disk disease, status post surgery and Dr. Bolivar had seen he r and indicated no need for further surgical intervention. Previously elevated AST, ALT with normalization on 05/31/2019. Right shoulder impingement syndrome, for which she has seen Orthopedic Surgery. 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 Baez, Dr. Ericka conner. The plan is as follows: We will obtain on her today CBC with diff and aldairen sive metabolic profile today and monthly. She is to continue on Hizentra 25 g per week. She is to continue on Mestinon 60 mg t.i.d. Reduce prednisone to a dosage of 40 mg every other day, but in August 2019, larissa n to 30 mg every other day; in September, 20 mg every other day; in October, 15 mg every other day; in November, 10 mg every other day. I look forward to see her on her programmed return to clinic on January 04, 2020, to determine the next step. I am providing with release to work, so that she can return back to work. She is to again as previously instructed and according to my note of 12/31/2018 not to infuse Hizentra in the abdominal area. She is scheduled on 01/04/2020 and in 1 year or earlier. ([id number]) Time spent with the patient was 40 minutes, 25 minutes of which were towards cou nseling regarding diagnosis, prognosis and management. Farzana Vu MD TENANCE SUPERINTENDENT documented in this encounter Plan of Treatment Not on filedocumented as of this encounter Goals Goal Patient Associated Recent Progress Patient-Stat Aut hor Goal Type Problems ed? Recover from illness Hospital No Melissa Miranda, PAMELA Improve quality of life [facility] No Melissa Calvillo, PAMELA documented as of this encounter Procedures Comments Procedure Name Priority Date/Time Associated Diag nosis HC CBC W/ AUTOMATED DIFF Routine 07/13/2019 Myast henia gravis (HCC) 1:24 PM MAINTENANCE SUPERINTENDENT HC COMPREHENSIVE Routine 07/13/2019 Myasthenia gr mark (HCC) METABOLIC PANEL 1:24 PM MAINTENANCE SUPERINTENDENT documented in this encounter Results * COMPREHENSIVE METABOLIC PANEL (07/13/2019 1:24 PM MAINTENANCE SUPERINTENDENT) Sodium 135 (L) 137 - 147 MMOL/L [facility] Potassium 5.8 (H) 3.5 - 5.1 MMOL/L [facility] Chloride 101 98 - 110 MMOL/L [facility] Glucose 87 70 - 100 MG/DL [facility] Blood Urea 32 (H) 7 - 25 MG/DL [facility] Nitrogen Creatinine 1.14 (H) 0.4 - 1.00 MG/DL [facility] Calcium 8.5 8.5 - 10.6 MG/DL [facility] Total Protein 7.1 6.0 - 8.0 G/DL [facility] Total Bilirubin 0.3 0.3 - 1.2 MG/DL [facility] Albumin 3.4 (L) 3.5 - 5.0 G/DL [facility] Alk Phosphatase 100 25 - 110 U/L [facility] AST (SGOT) 39 7 - 40 U/L [facility] CO2 30 21 - 30 MMOL/L [facility] ALT (SGPT) 31 7 - 56 U/L [facility] Anion Gap 4 3 - 12 [facility] eGFR Non 47 (L) >60 mL/min [facility] Comment: [place] The eGFR is not validated f or use in drug dosing adjustments. Continue to use estimated creatinine clearance per dosing reference text. Please contact the Clinical Pharmacist for questions. eGFR 57 (L) >60 mL/min [facility] [place] Comment: The eGFR is not validated for use in drug dosing adjustments. Continue to use estimated creatinine clearance per dosing reference text. Please contact the Clinical Pharmacist for questions. Specimen Blood Performing Organization Address City/State/Zipcode Ph one Number [facility] [address] [place] [address] * CBC AND DIFF (07/13/2019 1:24 PM MAINTENANCE SUPERINTENDENT) White Blood 9.6 4.5 - 11.0 K/UL [facility] Cells RBC 4.06 4.0 - 5.0 M/UL [facility] Hemoglobin 12.9 12.0 - 15.0 GM/DL [facility] Hematocrit 40.0 36 - 45 % [facility] MCV 98.6 80 - 100 FL [facility] MCH 31.8 26 - 34 PG [facility] MCHC 32.3 32.0 - 36.0 G/DL [facility] RDW 14.0 11 - 15 % [facility] Platelet Count 384 150 - 400 K/UL [facility] MPV 8.6 7 - 11 FL [facility] Neutrophils 69 41 - 77 % [facility] Lymphocytes 20 (L) 24 - 44 % [facility] Monocytes 9 4 - 12 % [facility] Eosinophils 1 0 - 5 % [facility] Basophils 1 0 - 2 % [facility] Absolute 6.70 1.8 - 7.0 K/UL [facility] Neutrophil Count Absolute Lymph 1.90 1.0 - 4.8 K/UL [facility] Count Absolute 0.80 0 - 0.80 K/UL [facility] Monocyte Count Absolute 0.10 0 - 0.45 K/UL [facility] Eosinophil Count Absolute 0.10 0 - 0.20 K/UL [facility] Basophil Count Specimen Blood Performing Organization Address City/State/Zipcode Ph one Number [facility] [address] [place] [address] documented in this encounter Visit Diagnoses Diagnosis Myasthenia gravis (HCC) Myasthenia gravis without exacerbation documented in this encounter
--- OUTSIDE RECORDS SUMMARY | 2019-12-14 14:21 | XMS REPORT | Encounter Summary ---
Author Author [facility] Organization [facility] Address Unknown Phone Unavailable Care Team Providers Care Monitoring Manager Name Role Phone Erlinda Massey RN Unavailable Unavailable Carl Castaneda [facility] Unavailable [phone] Alissa Black RN Unavailable Unavailable Zuhair Poon MD Unavailable Wade Perez MD Unavailable Wade Cornejo MD Unavailable Torie Hurtado MD Unavailable Tika Kessler RN Unavailable Unavailable Mary Marley MD Unavailable Jesus Carbone MD PCP Encounter Details Care Team Description Date Type Department Farzana Vu MD [address] [place] [address] Myasthenia gravis (HCC) (Primary Dx) 07/23/2019 Orders Only [facility] [address] [place] [address] Social History Date Tobacco Use [...] Melissa Miranda, RN Improve quality of life [facility] No Melissa Calvillo RN documented as of this encounter Results * COMPREHENSIVE METABOLIC PANEL (10/07/2019 2:09 PM MANAGER OF PATIENT) Sodium 139 137 - 147 MMOL/L [facility] [...] (L) >60 mL/min [facility] Comment: [place] The eGFR is not validated f or use in drug dosing adjustments. Continue to use estimated creatinine clearance per dosing reference text. Please contact the Clinical Pharmacist for questions. eGFR >60 >60 mL/min [facility] [place] Comment: The eGFR is not validated for use in drug dosing adjustments. Continue to use estimated creatinine clearance per dosing reference text. Please contact the Clinical Pharmacist for questions. Specimen Blood Performing Organization Address City/State/Zipcode Ph one Number [facility] [address] [place] [address] documented in this encounter Visit Diagnoses Diagnosis Myasthenia gravis (HCC) Myasthenia gravis without exacerbation documented in this encounter
--- OUTSIDE RECORDS SUMMARY | 2019-12-14 14:21 | XMS REPORT | Encounter Summary ---
Author Author [facility] Address Unknown Phone Unavailable Care Team Providers Care Pipe Threader Name Role Phone Erlinda Massey RN Unavailable Unavailable [facility] Unavailable [phone] Alissa Black RN Unavailable Unavailable Zuhair Poon MD Unavailable Wade Perez MD Unavailable Wade Cornejo MD Unavailable Torie Hurtado MD Unavailable Tika Kessler RN Unavailable Unavailable Mary Marley MD Unavailable Jesus Carbone MD PCP Reason for Visit * Reason Comments Other Encounter Details Care Team Description Date Type Department Wade Cornejo MD [address] [facility] [address] [place] [address] [phone] Other 07/22/2019 Telephone [facility] [address] [place] [address] Social History Date Tobacco Use Types Packs/Day [...] encounter Miscellaneous Notes * Telephone Encounter - Maricarmen Wilcox RN - 07/22/2019 4:41 PM DIRECTOR BANKING Called pt, relayed provider message Pt will call IR department regarding tube removal Verbalized understanding on other results CTOR BANKING * Telephone Encounter - Wade Cornejo MD - 07/22/2019 4:22 PM DIRECTOR BANKING It sounds like her weight is holding its own. I think the tube can be removed. [facility] if she needs help with this I could look into it on Friday. The vitamin A level was normal. The vitamin D level was low, but I am not sure I trust the results. I am looking into whether there is a problem with the test a nd hope to have an answer when I get back. CTOR BANKING * Telephone Encounter - Maricarmen Wilcox RN - 07/22/2019 2:55 PM DIRECTOR BANKING Pt called, LVM States she was trying to get her lab results Also reports her current weight: 128lbs Pt states it was discussed about her losing her feeding tube Would like to hear Dr. Cornejo' recommendations Routing to Dr. Cornejo for review CTOR BANKING documented in this encounter Plan of Treatment Not on filedocumented as of this encounter Goals Goal Patient Associated Recent Progress Patient-Stat Aut hor Goal Type Problems ed? Recover from illness Hospital No Melissa Miranda, PAMELA Improve quality of life [facility] No Melissa Calvillo RN documented as of this encounter Visit Diagnoses Not on filedocumented in this encounter
--- OUTSIDE RECORDS SUMMARY | 2019-12-14 14:21 | XMS REPORT | Encounter Summary ---
Author Author [facility] Organization [facility] Address Unknown Phone Unavailable Care Team Providers Care Lease Broker Name Role Phone Erlinda Massey RN Unavailable Unavailable Carl Castaneda [facility] Unavailable [phone] Alissa Black RN Unavailable Unavailable Zuhair Poon MD Unavailable Wade Perez MD Unavailable Wade Cornejo MD Unavailable Torie Hurtado MD Unavailable Tika Kessler RN Unavailable Unavailable Mary Marley MD Unavailable Jesus Carbone MD PCP Reason for Referral * Consult, Test & Treat (Routine) Referred By Contact Referred To Contact Status Reason Specialty Diagnoses / Procedures Humphrey Segura MD [address] [address] New Request Procedures REQUEST FOR CARDIOLOGY APPOINTMENT Reason for Visit * Reason Comments Cardiac Eval non-ischemic cardiomyopathy , chronic systolic HF, CAD Encounter Details Care Team Description Date Type Department Humphrey Segura MD [address] [address] Cardiac Eval (non-ischemic cardiomyopath y, chronic systolic HF, CAD) 06/29/2019 Office Visit [facility] [address] [address] Social History Date Tobacco Use Types Packs/Day [...] Signs Reading Time Taken Comments Vital Sign 124/64 06/29/2019 3:41 PM CHROMOSOMAL DISORDERS COUNSELOR Blood Pressure 60 06/29/2019 3:41 PM CHROMOSOMAL DISORDERS COUNSELOR Pulse - - Temperature - - Respiratory Rate 97% 06/29/2019 3:41 PM CHROMOSOMAL DISORDERS COUNSELOR Oxygen Saturation - - Inhaled Oxygen Concentration 55.6 kg (122 lb 9.6 oz) 06/29/2019 3:41 PM CHROMOSOMAL DISORDERS COUNSELOR Weight 165.1 cm (5' 5") 06/29/2019 3:41 PM CHROMOSOMAL DISORDERS COUNSELOR Height 20.4 06/29/2019 3:41 PM CHROMOSOMAL DISORDERS COUNSELOR Body Mass Index documented in this encounter [...] as of this encounter Progress Notes * Humphrey Segura MD - 06/29/2019 3:00 PM CHROMOSOMAL DISORDERS COUNSELOR Date of Service: 06/29/2019 Marcia Araya is a 68 y.o. female. HPI Mrs. Araya comes for cardiac followup. We saw her about 18 months ago. She is a very pleasant 68-year-old woman. She has a previous history of obesity. Previous vertical banded gastroplasty, followed by gastric bypass. She had peter ed weight loss. She has chronic malnutrition, dumping syndrome, and chronic leong creatitis. She follows with Dr. Cornejo. 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 She had a previous J-tube placed. She was diagnosed with myasthenia gravis. jerod follows with Dr. Vu. She had been getting immunoglobulin treatment. S he has a history of congestive heart failure. She has had normal ejection fract ion. She has some coronary calcification. She had a previous heart catheteriza tion in 2015 that showed no obstructive coronary disease. She had recent myasth enia crisis and was hospitalized between May 28 and June 09. She dev eloped acute respiratory failure, altered mental status, and had evidence for my asthenia crisis complicated by aspiration and pneumonia. She was on the ventila tor between May 28 and June 06. She had 5 plasmapheresis exchanges. She had an echocardiogram that showed normal ejection fraction, with no valvular pr oblems and no interval change. She is now feeling improved. Her nutrition has improved. Her weight has increased. She is going to be seeing Dr. Cornejo. She is hopeful to get the J-tube removed. She is not having chest pain or shortness of breath. She denies palpitations, presyncope, syncope, TIA, stroke, and tomasa dication. There has been no fever, chills, or sweats. ([id number]) Vitals: 06/29/19 1541 BP: 124/64 Pulse: 60 SpO2: 97% Weight: 55.6 kg (122 lb 9.6 oz) Height: 1.651 m (5' 5") Body mass index is 20.4 kg/m. Past Medical History Patient Active Problem List Diagnosis Date Noted Pneumonia 05/28/2019 Cellulitis 12/17/2018 S/P jejunostomy ([facility]) 12/09/2018 Osteomyelitis of mandible 10/12/2018 Diarrhea 08/04/2018 Malnutrition ([facility]) 08/04/2018 Arthritis 06/23/2018 neck and shoulder, currently on mobic Spondylosis of lumbosacral region without myelopathy or radiculopathy 2015 Facet arthropathy, lumbar 05/28/2016 Closed compression fracture of lumbar vertebra ([facility]) 05/28/2016 CAD (coronary artery disease) 04/29/2016 Chronic systolic heart failure ([facility]) 03/13/2016 Abnormal thallium stress test 03/13/2016 Vitamin D deficiency 01/08/2016 Non-ischemic cardiomyopathy ([facility]) 12/21/2015 History of Fidelia-en-Y gastric bypass 10/16/2015 Dumping syndrome 07/16/2015 Myasthenia gravis ([facility]) 07/16/2015 RLS (restless legs syndrome) 07/16/2015 Chronic pancreatitis (HCC) 07/16/2015 Peripheral neuropathy 07/16/2015 Severe protein-calorie malnutrition (HCC) 07/16/2015 Review of Systems Constitution: Positive for diaphoresis. HENT: Negative. Eyes: Positive for double vision and visual halos. Cardiovascular: Positive for dyspnea on exertion. Respiratory: Positive for cough and shortness of breath. Endocrine: Positive for heat intolerance. Hematologic/Lymphatic: Bruises/bleeds easily. Skin: Negative. Musculoskeletal: Positive for arthritis, back pain and myalgias. Gastrointestinal: Positive for abdominal pain. Genitourinary: Positive for bladder incontinence. Neurological: Positive for aphonia, focal weakness and weakness. Psychiatric/Behavioral: Positive for depression. The patient is nervous/anxious. Allergic/Immunologic: Negative. Review of systems is documented in the database. (DOC:[id number]) Physical Exam On examination, she is in no distress. She is 5 feet 5 inches, weight 122, BMI is 20.4, blood pressure 124/64. Pulse is regular. Rhythm is sinus at 60 beats per minute. Venous pressure is normal. There is no edema. Lungs are clear. T here is no wheeze or rhonchi. PMI is not felt. Heart sounds are normal. I do not hear any gallops, murmurs, or rubs. There is no hepatomegaly. There are no abdominal bruits. Bowel sounds are normal. There is no icterus. There is no focal neurologic deficit. Distal pulses are 2+ bilaterally. There are no carot id bruits. She is alert and oriented times 3. Her mood, judgment, and affect a re normal. (DOC:[id number]) Cardiovascular Studies EKG shows sinus rhythm with nonspecific T-wave changes. (DOC:[id number]) Problems Addressed Today Encounter Diagnoses Name Primary? Non-ischemic cardiomyopathy (HCC) Yes Coronary artery disease involving [place] coronary artery of [place] heart wit h angina pectoris (HCC) Myasthenia gravis (HCC) Assessment and Plan Mrs. Starr is stable from a cardiac perspective. She has been critically ill recently with myasthenia crisis. She seems to be improving. Her recent echo is reassuring and unchanged. I would like to continue with her current treatment plan. I would like to see her back next year for followup. She will continue to follow closely with Dr. Cornejo and Dr. Vu. If I can be of further assi stance, please do not hesitate to let me know. ([id number]) Current Medications (including today's revisions) Biotin 10,000 mcg cap Take 1 Cap [...] fo r arthritis in neck and shoulder [id number]-vit K 45 mg iron- 800 mcg-120 mcg [...] mg tablet TAKE 1 TABLET BY MOUTH AT BEDTIME DAILY prednisone (DELTASONE) 20 mg tablet two tablets [...] capsule Take one capsule by mouth daily. MOSOMAL DISORDERS COUNSELOR documented in this encounter Plan of Treatment Order Schedule Name Type Priority Associated Diag noses Ordered: 06/29/2019 ECG 12-LEAD ECG Routine Non-ischemic cardiomyopathy (HCC) Coronary artery disease involving [place] coronary artery of [place] heart with angina pectoris (HCC) documented as of this encounter Goals Goal Patient Associated Recent Progress Patient-Stat Aut hor Goal Type Problems ed? Recover from illness Hospital No Melissa Miranda, PAMELA Improve quality of life [facility] No Melissa Calvillo RN documented as of this encounter Procedures Comments Procedure Name Priority Date/Time Associated Diag nosis ECG-SCAN 06/29/2019 12:00 AM CHROMOSOMAL DISORDERS COUNSELOR documented in this encounter Results * ECG-SCAN (06/29/2019 12:00 AM CHROMOSOMAL DISORDERS COUNSELOR) Narrative Performed At This result has an attachment that is n ot available. Ordered by an unspecified provider. documented in this encounter Visit Diagnoses Diagnosis Non-ischemic cardiomyopathy (HCC) Other primary cardiomyopathies Coronary artery disease involving nativ e coronary artery of [place] heart with angina pectoris (HCC) Myasthenia gravis (HCC) Myasthenia gravis without exacerbation documented in this encounter
--- OUTSIDE RECORDS SUMMARY | 2019-12-14 14:23 | XMS REPORT | Continuity of Care Document ---
Author Organization Unknown Address Unknown Phone Unavailable Allergies Active Description Code Type Severity Reaction Onset Reported/Identified Relationship to Patient Clinical Status Yes No Known Drug Allergies [id number] Drug Allergy Unknown N/A 07/07/2015 Yes diphenhydramine [id number] D rug Allergy Moderate MUSCLE PAIN; AG Yes promethazine [id number] Drug Allergy Mild AGITATION 06/09/2019 Medications There is no data. Problems Date Dx Coded Attending Type Code Diagnosis Diagnosed By 07/17/1199 JEET MONROY MD, Ot E44 .0 MODERATE PROTEIN-CALORIE MALNUTRITION 07/17/1199 JEET MONROY MD, Ot H61.21 IMPACTED CERUMEN, RIGHT EAR 07/17/1199 JEET MONROY MD, Ot M27 .2 INFLAMMATORY CONDITIONS OF JAWS 07/17/1199 JEET MONROY MD, Ot M86.48 CHRONIC OSTEOMYELITIS WITH DRAINING SINU 07/17/1199 JEET MONROY MD, Ot S01.80XA UNSPECIFIED OPEN WOUND OF OTHER PART OF 07/17/1199 JEET MONROY MD, Ot X58.XXXA EXPOSURE TO OTHER SPECIFIED FACTORS, INI 07/17/1199 JEET MONROY MD, Ot 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 07/12/2015 GISELLA TREADWELL MD Ot E46 UNSPECIFIED PROTEIN-CALORIE MALNUTRITION 07/12/2015 GISELLA TREADWELL MD Ot E87.6 HYPOKALEMIA 07/12/2015 GISELLA TREADWELL MD Ot G70.0 1 MYASTHENIA GRAVIS WITH (ACUTE) EXACERBAT 07/12/2015 GISELLA TREADWELL MD Ot J18.9 PNEUMONIA, UNSPECIFIED ORGANISM 07/12/2015 GISELLA TREADWELL MD, Ot J90 PLEURAL EFFUSION, NOT ELSEWHERE CLASSIFI 07/12/2015 GISELLA TREADWELL MD Ot J98.1 1 ATELECTASIS 07/12/2015 GISELLA TREADWELL MD Ot K21.9 GASTRO-ESOPHAGEAL REFLUX DISEASE WITHOUT 07/12/2015 MILE TORRES GISELLA Brock Ot 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 07/12/2015 GISELLA TREADWELL MD Ot R60.1 GENERALIZED EDEMA 09/29/2018 JEET MONROY MD, Ot L98.494 NON-PRS CHRONIC ULCER OF SKIN OF SITES W 09/30/2018 JEET MONROY MD, Ot E44 .0 MODERATE PROTEIN-CALORIE MALNUTRITION 09/30/2018 JEET MONROY MD, Ot M27 .2 INFLAMMATORY CONDITIONS OF JAWS 09/30/2018 JEET MONROY MD, Ot M86.48 CHRONIC OSTEOMYELITIS WITH DRAINING SINU 09/30/2018 JEET MONROY MD, Ot S01.80XA UNSPECIFIED OPEN WOUND OF OTHER PART OF 09/30/2018 JEET MONROY MD, Ot 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 10/17/2018 JEET MONROY MD, Ot E44 .0 MODERATE PROTEIN-CALORIE MALNUTRITION 10/17/2018 JEET MONROY MD, Ot M27 .2 INFLAMMATORY CONDITIONS OF JAWS 10/17/2018 JEET MONROY MD, Ot M86.48 CHRONIC OSTEOMYELITIS WITH DRAINING SINU 10/17/2018 JEET MONROY MD, Ot S01.80XA UNSPECIFIED OPEN WOUND OF OTHER PART OF 10/17/2018 JEET MONROY MD, Ot Z79.83 SHELTER (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 10/17/2018 JEET MONROY MD, Ot L98.494 NON-PRS CHRONIC ULCER OF SKIN OF SITES W 10/18/2018 KIRT JAMES MD Ot F32. 9 MAJOR DEPRESSIVE DISORDER, SINGLE EPISOD 10/18/2018 KIRT JAMES MD Ot F41. 9 ANXIETY DISORDER, UNSPECIFIED 10/18/2018 KIRT JAMES MD Ot K94. 23 GASTROSTOMY MALFUNCTION 10/18/2018 KIRT JAMES MD Ot Z79. 52 ESL PROFESSOR (CURRENT) USE OF SYSTEMIC STER 10/18/2018 KIRT JAMES MD Ot Z80. 1 FAMILY HISTORY OF MALIG NEOPLASM OF TRAC 10/18/2018 KIRT JAMES MD Ot Z87. 01 PERSONAL HISTORY OF PNEUMONIA (RECURRENT 10/18/2018 KIRT JAMES MD Ot Z98. 84 BARIATRIC SURGERY STATUS 10/19/2018 JEET MONROY MD, Ot E44 .0 MODERATE PROTEIN-CALORIE MALNUTRITION 10/19/2018 JEET MONROY MD, Ot M27 .2 INFLAMMATORY CONDITIONS OF JAWS 10/19/2018 JEET MONROY MD, Ot M86.48 CHRONIC OSTEOMYELITIS WITH DRAINING SINU 10/19/2018 JEET MONROY MD, Ot S01.80XA UNSPECIFIED OPEN WOUND OF OTHER PART OF 10/19/2018 JEET MONROY MD, Ot 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 10/20/2018 KIRT JAMES MD Ot F32. 9 MAJOR DEPRESSIVE DISORDER, SINGLE EPISOD 10/20/2018 KIRT JAMES MD, Ot F41. 9 ANXIETY DISORDER, UNSPECIFIED 10/20/2018 KIRT JAMES MD, Ot K94. 23 GASTROSTOMY MALFUNCTION 10/20/2018 KIRT JAMES MD, Ot Z79. 52 SHELTER (CURRENT) USE OF SYSTEMIC STER 10/20/2018 KIRT JAMES MD Ot Z80. 1 FAMILY HISTORY OF MALIG NEOPLASM OF TRAC 10/20/2018 KIRT JAMES MD, Ot Z87. 01 PERSONAL HISTORY OF PNEUMONIA (RECURRENT 10/20/2018 KIRT JAMES MD, Ot Z98. 84 BARIATRIC SURGERY STATUS 10/20/2018 JEET MONROY MD, Ot E44 .0 MODERATE PROTEIN-CALORIE MALNUTRITION 10/20/2018 JEET MONROY MD, Ot M27 .2 INFLAMMATORY CONDITIONS OF JAWS 10/20/2018 JEET MONROY MD, Ot M86.48 CHRONIC OSTEOMYELITIS WITH DRAINING SINU 10/20/2018 JEET MONROY MD, Ot S01.80XA UNSPECIFIED OPEN WOUND OF OTHER PART OF 10/20/2018 JEET MONROY MD, Ot 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 10/20/2018 JEET MONROY MD, Ot L98.494 NON-PRS CHRONIC ULCER OF SKIN OF SITES W 10/27/2018 JEET MONROY MD, Ot E44 .0 MODERATE PROTEIN-CALORIE MALNUTRITION 10/27/2018 JEET MONROY MD, Ot M27 .2 INFLAMMATORY CONDITIONS OF JAWS 10/27/2018 JEET MONROY MD, Ot M86.48 CHRONIC OSTEOMYELITIS WITH DRAINING SINU 10/27/2018 JEET MONROY MD, Ot S01.80XA UNSPECIFIED OPEN WOUND OF OTHER PART OF 10/27/2018 JEET MONROY MD, Ot Z79.83 SHELTER (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 11/02/2018 JEET MONROY MD, Ot E44 .0 MODERATE PROTEIN-CALORIE MALNUTRITION 11/02/2018 JEET MONROY MD, Ot M27 .2 INFLAMMATORY CONDITIONS OF JAWS 11/02/2018 JEET MONROY MD, Ot M86.48 CHRONIC OSTEOMYELITIS WITH DRAINING SINU 11/02/2018 JEET MONROY MD, Ot S01.80XA UNSPECIFIED OPEN WOUND OF OTHER PART OF 11/02/2018 JEET MONROY MD, Ot X58.XXXA EXPOSURE TO OTHER SPECIFIED FACTORS, INI 11/02/2018 JEET MONROY MD, Ot 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 2018 JEET MONROY MD, Ot E44 .0 MODERATE PROTEIN-CALORIE MALNUTRITION 2018 JEET MONROY MD, Ot M27 .2 INFLAMMATORY CONDITIONS OF JAWS 2018 JEET MONROY MD, Ot M86.48 CHRONIC OSTEOMYELITIS WITH DRAINING SINU 2018 JEET MONROY MD, Ot S01.80XA UNSPECIFIED OPEN WOUND OF OTHER PART OF 2018 JEET MONROY MD, Ot Z79.83 SHELTER (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 11/10/2018 JEET MONROY MD, Ot E44 .0 MODERATE PROTEIN-CALORIE MALNUTRITION 11/10/2018 JEET MONROY MD, Ot M27 .2 INFLAMMATORY CONDITIONS OF JAWS 11/10/2018 JEET MONROY MD, Ot M86.48 CHRONIC OSTEOMYELITIS WITH DRAINING SINU 11/10/2018 JEET MONROY MD, Ot S01.80XA UNSPECIFIED OPEN WOUND OF OTHER PART OF 11/10/2018 JEET MONROY MD, Ot X58.XXXA EXPOSURE TO OTHER SPECIFIED FACTORS, INI 11/10/2018 JEET MONROY MD, Ot Z79.83 SHELTER (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 11/12/2018 JEET MONROY MD, Ot E44 .0 MODERATE PROTEIN-CALORIE MALNUTRITION 11/12/2018 JEET MONROY MD, Ot M27 .2 INFLAMMATORY CONDITIONS OF JAWS 11/12/2018 JEET MONROY MD, Ot M86.48 CHRONIC OSTEOMYELITIS WITH DRAINING SINU 11/12/2018 JEET MONROY MD, Ot S01.80XA UNSPECIFIED OPEN WOUND OF OTHER PART OF 11/12/2018 JEET MONROY MD, Ot Z79.83 SHELTER (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 11/12/2018 JEET MONROY MD, Ot L98.494 NON-PRS CHRONIC ULCER OF SKIN OF SITES W 11/12/2018 JEET MONROY MD, Ot E44 .0 MODERATE PROTEIN-CALORIE MALNUTRITION 11/12/2018 JEET MONROY MD, Ot M27 .2 INFLAMMATORY CONDITIONS OF JAWS 11/12/2018 JEET MONROY MD, Ot M86.48 CHRONIC OSTEOMYELITIS WITH DRAINING SINU 11/12/2018 JEET MONROY MD, Ot S01.80XA UNSPECIFIED OPEN WOUND OF OTHER PART OF 11/12/2018 JEET MONROY MD, Ot 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 11/12/2018 JEET MONROY MD, Ot E44 .0 MODERATE PROTEIN-CALORIE MALNUTRITION 11/12/2018 JEET MONROY MD, Ot M27 .2 INFLAMMATORY CONDITIONS OF JAWS 11/12/2018 JEET MONROY MD, Ot M86.48 CHRONIC OSTEOMYELITIS WITH DRAINING SINU 11/12/2018 EJET MONROY MD, Ot S01.80XA UNSPECIFIED OPEN WOUND OF OTHER PART OF 11/12/2018 JEET MONROY MD, Ot Z79.83 SHELTER (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 11/12/2018 JEET MONROY MD, Ot E44 .0 MODERATE PROTEIN-CALORIE MALNUTRITION 11/12/2018 JEET MONROY MD, Ot M27 .2 INFLAMMATORY CONDITIONS OF JAWS 11/12/2018 JEET MONROY MD, Ot M86.48 CHRONIC OSTEOMYELITIS WITH DRAINING SINU 11/12/2018 JEET MONROY MD, Ot S01.80XA UNSPECIFIED OPEN WOUND OF OTHER PART OF 11/12/2018 JEET MONROY MD, Ot X58.XXXA EXPOSURE TO OTHER SPECIFIED FACTORS, INI 11/12/2018 JEET MONROY MD, Ot 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 11/12/2018 JEET MONROY MD, Ot E44 .0 MODERATE PROTEIN-CALORIE MALNUTRITION 11/12/2018 JEET MONROY MD, Ot M27 .2 INFLAMMATORY CONDITIONS OF JAWS 11/12/2018 JEET MONROY MD, Ot M86.48 CHRONIC OSTEOMYELITIS WITH DRAINING SINU 11/12/2018 ELIANA MD, JEET G Ot S01.80XA UNSPECIFIED OPEN WOUND OF OTHER PART OF 11/12/2018 JEET MONROY MD, Ot X58.XXXA EXPOSURE TO OTHER SPECIFIED FACTORS, INI 11/12/2018 JEET MONROY MD, Ot Z79.83 SHELTER (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 11/12/2018 JEET MONROY MD, Ot M27 .2 INFLAMMATORY CONDITIONS OF JAWS 11/12/2018 JEET MONROY MD, Ot E44 .0 MODERATE PROTEIN-CALORIE MALNUTRITION 11/12/2018 JEET MONROY MD, Ot M27 .2 INFLAMMATORY CONDITIONS OF JAWS 11/12/2018 JEET MONROY MD, Ot M86.48 CHRONIC OSTEOMYELITIS WITH DRAINING SINU 11/12/2018 JEET MONROY MD, Ot S01.80XA UNSPECIFIED OPEN WOUND OF OTHER PART OF 11/12/2018 JEET MONROY MD, Ot 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 11/16/2018 JEET MONROY MD, Ot E44 .0 MODERATE PROTEIN-CALORIE MALNUTRITION 11/16/2018 JEET MONROY MD, Ot H61.21 IMPACTED CERUMEN, RIGHT EAR 11/16/2018 JEET MONROY MD, Ot M27 .2 INFLAMMATORY CONDITIONS OF JAWS 11/16/2018 JEET MONROY MD, Ot M86.48 CHRONIC OSTEOMYELITIS WITH DRAINING SINU 11/16/2018 JEET MONROY MD, Ot S01.80XA UNSPECIFIED OPEN WOUND OF OTHER PART OF 11/16/2018 JEET MONROY MD, Ot X58.XXXA EXPOSURE TO OTHER SPECIFIED FACTORS, INI 11/16/2018 JEET MONROY MD, Ot 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 11/23/2018 JEET MONROY MD, Ot E44 .0 MODERATE PROTEIN-CALORIE MALNUTRITION 11/23/2018 JEET MONROY MD, Ot M27 .2 INFLAMMATORY CONDITIONS OF JAWS 11/23/2018 JEET MONROY MD, Ot M86.48 CHRONIC OSTEOMYELITIS WITH DRAINING SINU 11/23/2018 JEET MONROY MD, Ot S01.80XA UNSPECIFIED OPEN WOUND OF OTHER PART OF 11/23/2018 JEET MONROY MD, Ot X58.XXXA EXPOSURE TO OTHER SPECIFIED FACTORS, INI 11/23/2018 JEET MONROY MD, Ot Z79.83 SHELTER (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 11/26/2018 JEET MONROY MD, Ot E44 .0 MODERATE PROTEIN-CALORIE MALNUTRITION 11/26/2018 JEET MONROY MD, Ot M27 .2 INFLAMMATORY CONDITIONS OF JAWS 11/26/2018 JEET MONROY MD, Ot M86.48 CHRONIC OSTEOMYELITIS WITH DRAINING SINU 11/26/2018 JEET MONROY MD, Ot S01.80XA UNSPECIFIED OPEN WOUND OF OTHER PART OF 11/26/2018 JEET MONROY MD, Ot X58.XXXA EXPOSURE TO OTHER SPECIFIED FACTORS, INI 11/26/2018 JEET MONROY MD, Ot 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 11/30/2018 JEET MONROY MD, Ot M27 .2 INFLAMMATORY CONDITIONS OF JAWS 11/30/2018 JEET MONROY MD, Ot M86.48 CHRONIC OSTEOMYELITIS WITH DRAINING SINU 11/30/2018 JEET MONORY MD, Ot S01.80XA UNSPECIFIED OPEN WOUND OF OTHER PART OF 11/30/2018 JEET MONROY MD, Ot T70.0XXA OTITIC BAROTRAUMA, INITIAL ENCOUNTER 11/30/2018 EJET MONROY MD, Ot X58.XXXA EXPOSURE TO OTHER SPECIFIED FACTORS, INI 11/30/2018 JEET MONROY MD, Ot Z79.83 SHELTER (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 12/03/2018 JEET MONROY MD, Ot M27 .2 INFLAMMATORY CONDITIONS OF JAWS 12/03/2018 JEET MONROY MD, Ot M86.48 CHRONIC OSTEOMYELITIS WITH DRAINING SINU 12/03/2018 JEET MONROY MD, Ot S01.80XA UNSPECIFIED OPEN WOUND OF OTHER PART OF 12/03/2018 JEET MONROY MD, Ot T70.0XXA OTITIC BAROTRAUMA, INITIAL ENCOUNTER 12/03/2018 JEET MONROY MD, Ot X58.XXXA EXPOSURE TO OTHER SPECIFIED FACTORS, INI 12/03/2018 JEET MONROY MD, Ot Z79.83 SHELTER (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 12/07/2018 JEET MONROY MD, Ot E44 .0 MODERATE PROTEIN-CALORIE MALNUTRITION 12/07/2018 JEET MONROY MD, Ot H61.21 IMPACTED CERUMEN, RIGHT EAR 12/07/2018 JEET MONROY MD, Ot M27 .2 INFLAMMATORY CONDITIONS OF JAWS 12/07/2018 JEET MONROY MD, Ot M86.48 CHRONIC OSTEOMYELITIS WITH DRAINING SINU 12/07/2018 JEET MONROY MD, Ot S01.80XA UNSPECIFIED OPEN WOUND OF OTHER PART OF 12/07/2018 JEET MONROY MD, Ot X58.XXXA EXPOSURE TO OTHER SPECIFIED FACTORS, INI 12/07/2018 JEET MONROY MD, Ot Z79.83 SHELTER (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 12/14/2018 JEET MONROY MD, Ot M27 .2 INFLAMMATORY CONDITIONS OF JAWS 12/14/2018 JEET MONROY MD, Ot M86.48 CHRONIC OSTEOMYELITIS WITH DRAINING SINU 12/14/2018 EJET MONROY MD, Ot S01.80XA UNSPECIFIED OPEN WOUND OF OTHER PART OF 12/14/2018 JEET MONROY MD, Ot X58.XXXA EXPOSURE TO OTHER SPECIFIED FACTORS, INI 12/14/2018 JEET MONROY MD, Ot Z79.83 SHELTER (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 12/14/2018 JEET MONROY MD, Ot M27 .2 INFLAMMATORY CONDITIONS OF JAWS 12/14/2018 JEET MONROY MD, Ot M86.48 CHRONIC OSTEOMYELITIS WITH DRAINING SINU 12/14/2018 JEET MONROY MD, Ot S01.80XA UNSPECIFIED OPEN WOUND OF OTHER PART OF 12/14/2018 JEET MONROY MD, Ot X58.XXXA EXPOSURE TO OTHER SPECIFIED FACTORS, INI 12/14/2018 JEET MONROY MD, Ot 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 12/17/2018 JEET MONROY MD, Ot M27 .2 INFLAMMATORY CONDITIONS OF JAWS 12/17/2018 JEET MONROY MD, Ot M86.48 CHRONIC OSTEOMYELITIS WITH DRAINING SINU 12/17/2018 JEET MONROY MD, Ot S01.80XA UNSPECIFIED OPEN WOUND OF OTHER PART OF 12/17/2018 JEET MONROY MD, Ot T70.0XXA OTITIC BAROTRAUMA, INITIAL ENCOUNTER 12/17/2018 JEET MONROY MD, Ot X58.XXXA EXPOSURE TO OTHER SPECIFIED FACTORS, INI 12/17/2018 JEET MONROY MD, Ot Z79.83 SHELTER (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 12/18/2018 JEET MONROY MD, Ot E44 .0 MODERATE PROTEIN-CALORIE MALNUTRITION 12/18/2018 JEET MONROY MD, Ot H61.21 IMPACTED CERUMEN, RIGHT EAR 12/18/2018 JEET MONROY MD, Ot M27 .2 INFLAMMATORY CONDITIONS OF JAWS 12/18/2018 JEET MONROY MD, Ot M86.48 CHRONIC OSTEOMYELITIS WITH DRAINING SINU 12/18/2018 JEET MONROY MD, Ot S01.80XA UNSPECIFIED OPEN WOUND OF OTHER PART OF 12/18/2018 JEET MONROY MD, Ot X58.XXXA EXPOSURE TO OTHER SPECIFIED FACTORS, INI 12/18/2018 JEET MONROY MD, Ot Z79.83 SHELTER (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 12/25/2018 SARITA AYALA APRN Ot M27.2 INFLAMMATORY CONDITIONS OF JAWS 12/25/2018 SARITA AYALA APRN Ot M86.48 CHRONIC OSTEOMYELITIS WITH DRAINING SINU 12/25/2018 SARITA AYALA APRN Ot S01.80XA UNSPECIFIED OPEN WOUND OF OTHER PART OF 12/25/2018 SARITA AYALA APRN Ot X58.XXXA EXPOSURE TO OTHER SPECIFIED FACTORS, INI 12/25/2018 SARITA AYALA APRN Ot Z79.83 SHELTER (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 01/04/2019 JEET MONROY MD, Ot M27 .2 INFLAMMATORY CONDITIONS OF JAWS 01/04/2019 JEET MONROY MD, Ot M86.48 CHRONIC OSTEOMYELITIS WITH DRAINING SINU 01/04/2019 JEET MONROY MD, Ot S01.80XA UNSPECIFIED OPEN WOUND OF OTHER PART OF 01/04/2019 JEET MONROY MD, Ot X58.XXXA EXPOSURE TO OTHER SPECIFIED FACTORS, INI 01/04/2019 JEET MONROY MD, Ot 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 01/05/2019 JEET MONROY MD, Ot M27 .2 INFLAMMATORY CONDITIONS OF JAWS 01/05/2019 JEET MONROY MD, Ot M86.48 CHRONIC OSTEOMYELITIS WITH DRAINING SINU 01/05/2019 JEET MONROY MD, Ot S01.80XA UNSPECIFIED OPEN WOUND OF OTHER PART OF 01/05/2019 JEET MONROY MD, Ot X58.XXXA EXPOSURE TO OTHER SPECIFIED FACTORS, INI 01/05/2019 JEET MONROY MD, Ot Z79.83 SHELTER (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 01/07/2019 JEET MONROY MD, Ot M27 .2 INFLAMMATORY CONDITIONS OF JAWS 01/07/2019 JEET MONROY MD, Ot M86.48 CHRONIC OSTEOMYELITIS WITH DRAINING SINU 01/14/2019 SARITA AYALA APRN Ot M27.2 INFLAMMATORY CONDITIONS OF JAWS 01/14/2019 SARITA AYALA APRN Ot M86.48 CHRONIC OSTEOMYELITIS WITH DRAINING SINU 01/14/2019 SARITA AYALA ELECTRICAL INSTALLATION INSPECTOR Ot S01.80XA UNSPECIFIED OPEN WOUND OF OTHER PART OF 01/14/2019 SARITA AYALA APRN Ot X58.XXXA EXPOSURE TO OTHER SPECIFIED FACTORS, INI 01/14/2019 SARITA AYALA APRN Ot Z79.83 SHELTER (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 01/22/2019 JEET MONROY MD, Ot M27 .2 INFLAMMATORY CONDITIONS OF JAWS 01/22/2019 JEET MONROY MD, Ot M86.48 CHRONIC OSTEOMYELITIS WITH DRAINING SINU 01/22/2019 JEET MONROY MD, Ot S01.80XA UNSPECIFIED OPEN WOUND OF OTHER PART OF 01/22/2019 JEET MONROY MD, Ot X58.XXXA EXPOSURE TO OTHER SPECIFIED FACTORS, INI 01/22/2019 JEET MONROY MD, Ot Z79.83 SHELTER (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 01/22/2019 JEET MONROY MD Ot E44 .0 MODERATE PROTEIN-CALORIE MALNUTRITION 01/22/2019 JEET MONROY MD, Ot H61.21 IMPACTED CERUMEN, RIGHT EAR 01/22/2019 JEET MONROY MD, Ot M27 .2 INFLAMMATORY CONDITIONS OF JAWS 01/22/2019 JEET MONROY MD, Ot M86.48 CHRONIC OSTEOMYELITIS WITH DRAINING SINU 01/22/2019 JEET MONROY MD, Ot S01.80XA UNSPECIFIED OPEN WOUND OF OTHER PART OF 01/22/2019 JEET MONROY MD, Ot X58.XXXA EXPOSURE TO OTHER SPECIFIED FACTORS, INI 01/22/2019 JEET MONROY MD, Ot 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 01/26/2019 JEET MONROY MD, Ot M27 .2 INFLAMMATORY CONDITIONS OF JAWS 01/26/2019 JEET MONROY MD, Ot M86.48 CHRONIC OSTEOMYELITIS WITH DRAINING SINU 01/26/2019 JEET MONROY MD, Ot E44 .0 MODERATE PROTEIN-CALORIE MALNUTRITION 01/26/2019 JEET MONROY MD, Ot H61.21 IMPACTED CERUMEN, RIGHT EAR 01/26/2019 JEET MONROY MD, Ot M27 .2 INFLAMMATORY CONDITIONS OF JAWS 01/26/2019 JEET MONROY MD, Ot M86.48 CHRONIC OSTEOMYELITIS WITH DRAINING SINU 01/26/2019 JEET MONROY MD, Ot S01.80XA UNSPECIFIED OPEN WOUND OF OTHER PART OF 01/26/2019 JEET MONROY MD, Ot X58.XXXA EXPOSURE TO OTHER SPECIFIED FACTORS, INI 01/26/2019 JEET MONROY MD, Ot Z79.83 SHELTER (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 01/26/2019 JEET MONROY MD, Ot M27 .2 INFLAMMATORY CONDITIONS OF JAWS 01/26/2019 JEET MONROY MD, Ot M86.48 CHRONIC OSTEOMYELITIS WITH DRAINING SINU 01/29/2019 JEET MONROY MD, Ot M27 .2 INFLAMMATORY CONDITIONS OF JAWS 01/29/2019 JEET MONROY MD, Ot M86.48 CHRONIC OSTEOMYELITIS WITH DRAINING SINU 02/05/2019 JEET MONROY MD, Ot M27 .2 INFLAMMATORY CONDITIONS OF JAWS 02/05/2019 JEET MONROY MD, Ot M86.48 CHRONIC OSTEOMYELITIS WITH DRAINING SINU 02/11/2019 JEET MONROY MD, Ot M27 .2 INFLAMMATORY CONDITIONS OF JAWS 02/11/2019 JEET MONROY MD Ot M86.48 CHRONIC OSTEOMYELITIS WITH DRAINING SINU 02/19/2019 JEET MONROY MD Ot M27 .2 INFLAMMATORY CONDITIONS OF JAWS 02/19/2019 JEET MONROY MD, Ot M86.48 CHRONIC OSTEOMYELITIS WITH DRAINING SINU 02/21/2019 JEET MONROY MD Ot M27 .2 INFLAMMATORY CONDITIONS OF JAWS 02/21/2019 JEET MONROY MD, Ot M86.48 CHRONIC OSTEOMYELITIS WITH DRAINING SINU 02/22/2019 JEET MONROY MD, Ot M27 .2 INFLAMMATORY CONDITIONS OF JAWS 02/22/2019 JEET MONROY MD, Ot M86.48 CHRONIC OSTEOMYELITIS WITH DRAINING SINU 03/11/2019 JEET MONROY MD Ot M27 .2 INFLAMMATORY CONDITIONS OF JAWS 03/11/2019 JEET MONROY MD, Ot M86.48 CHRONIC OSTEOMYELITIS WITH DRAINING SINU 03/29/2019 JEET MONROY MD, Ot I96 GANGRENE, NOT ELSEWHERE CLASSIFIED 03/29/2019 JEET MONROY MD, Ot M27 .2 INFLAMMATORY CONDITIONS OF JAWS 03/29/2019 JEET MONROY MD, Ot M86.48 CHRONIC OSTEOMYELITIS WITH DRAINING SINU 03/29/2019 JEET MONROY MD, Ot S01.80XA UNSPECIFIED OPEN WOUND OF OTHER PART OF 03/30/2019 JEET MONROY MD, Ot I96 GANGRENE, NOT ELSEWHERE CLASSIFIED 03/30/2019 JEET MONROY MD, Ot M27 .2 INFLAMMATORY CONDITIONS OF JAWS 03/30/2019 JEET MONROY MD, Ot M86.48 CHRONIC OSTEOMYELITIS WITH DRAINING SINU 03/30/2019 JEET MONROY MD, Ot S01.80XA UNSPECIFIED OPEN WOUND OF OTHER PART OF 04/02/2019 JEET MNOROY MD, Ot E44 .0 MODERATE PROTEIN-CALORIE MALNUTRITION 04/02/2019 JEET MONROY MD, Ot M27 .2 INFLAMMATORY CONDITIONS OF JAWS 04/02/2019 JEET MONROY MD, Ot M86.48 CHRONIC OSTEOMYELITIS WITH DRAINING SINU 04/02/2019 JEET MONROY MD, Ot S01.80XA UNSPECIFIED OPEN WOUND OF OTHER PART OF 04/02/2019 JEET MONROY MD, Ot 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 04/02/2019 JEET MONROY MD, Ot L98.494 NON-PRS CHRONIC ULCER OF SKIN OF SITES W 04/02/2019 JEET MONROY MD, Ot E44 .0 MODERATE PROTEIN-CALORIE MALNUTRITION 04/02/2019 JEET MONROY MD, Ot M27 .2 INFLAMMATORY CONDITIONS OF JAWS 04/02/2019 JEET MONROY MD, Ot M86.48 CHRONIC OSTEOMYELITIS WITH DRAINING SINU 04/02/2019 JEET MONROY MD, Ot S01.80XA UNSPECIFIED OPEN WOUND OF OTHER PART OF 04/02/2019 JEET MONROY MD, Ot Z79.83 SHELTER (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 04/02/2019 JEET MONROY MD, Ot E44 .0 MODERATE PROTEIN-CALORIE MALNUTRITION 04/02/2019 JEET MONROY MD, Ot M27 .2 INFLAMMATORY CONDITIONS OF JAWS 04/02/2019 JEET MONROY MD, Ot M86.48 CHRONIC OSTEOMYELITIS WITH DRAINING SINU 04/02/2019 JEET MONROY MD, Ot S01.80XA UNSPECIFIED OPEN WOUND OF OTHER PART OF 04/02/2019 JEET MONROY MD, Ot Z79.83 SHELTER (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 04/02/2019 JEET MONROY MD, Ot E44 .0 MODERATE PROTEIN-CALORIE MALNUTRITION 04/02/2019 JEET MONROY MD, Ot M27 .2 INFLAMMATORY CONDITIONS OF JAWS 04/02/2019 JEET MONROY MD, Ot M86.48 CHRONIC OSTEOMYELITIS WITH DRAINING SINU 04/02/2019 JEET MONROY MD, Ot S01.80XA UNSPECIFIED OPEN WOUND OF OTHER PART OF 04/02/2019 JEET MONROY MD, Ot X58.XXXA EXPOSURE TO OTHER SPECIFIED FACTORS, INI 04/02/2019 JEET MONROY MD, Ot 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 04/02/2019 JEET MONROY MD, Ot E44 .0 MODERATE PROTEIN-CALORIE MALNUTRITION 04/02/2019 JEET MONROY MD, Ot M27 .2 INFLAMMATORY CONDITIONS OF JAWS 04/02/2019 JEET MONROY MD, Ot M86.48 CHRONIC OSTEOMYELITIS WITH DRAINING SINU 04/02/2019 JEET MONROY MD, Ot S01.80XA UNSPECIFIED OPEN WOUND OF OTHER PART OF 04/02/2019 JEET MONROY MD, Ot X58.XXXA EXPOSURE TO OTHER SPECIFIED FACTORS, INI 04/02/2019 JEET MONROY MD, Ot 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 04/02/2019 JEET MONROY MD, Ot E44 .0 MODERATE PROTEIN-CALORIE MALNUTRITION 04/02/2019 JEET MONROY MD, Ot H61.21 IMPACTED CERUMEN, RIGHT EAR 04/02/2019 JEET MONROY MD, Ot M27 .2 INFLAMMATORY CONDITIONS OF JAWS 04/02/2019 JEET MONROY MD, Ot M86.48 CHRONIC OSTEOMYELITIS WITH DRAINING SINU 04/02/2019 JEET MONROY MD, Ot S01.80XA UNSPECIFIED OPEN WOUND OF OTHER PART OF 04/02/2019 JEET MONROY MD, Ot X58.XXXA EXPOSURE TO OTHER SPECIFIED FACTORS, INI 04/02/2019 JEET MONROY MD, Ot 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 04/02/2019 JEET MONROY MD, Ot M27 .2 INFLAMMATORY CONDITIONS OF JAWS 04/02/2019 JEET MONROY MD, Ot M86.48 CHRONIC OSTEOMYELITIS WITH DRAINING SINU 04/02/2019 JEET MONROY MD, Ot S01.80XA UNSPECIFIED OPEN WOUND OF OTHER PART OF 04/02/2019 JEET MONROY MD, Ot T70.0XXA OTITIC BAROTRAUMA, INITIAL ENCOUNTER 04/02/2019 JEET MONROY MD, Ot X58.XXXA EXPOSURE TO OTHER SPECIFIED FACTORS, INI 04/02/2019 JEET MONROY MD, Ot 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.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 (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 04/02/2019 JEET MONROY MD, Ot M27 .2 INFLAMMATORY CONDITIONS OF JAWS 04/02/2019 JEET MONROY MD, Ot M86.48 CHRONIC OSTEOMYELITIS WITH DRAINING SINU 04/02/2019 JEET MONROY MD, Ot S01.80XA UNSPECIFIED OPEN WOUND OF OTHER PART OF 04/02/2019 JEET MONROY MD, Ot X58.XXXA EXPOSURE TO OTHER SPECIFIED FACTORS, INI 04/02/2019 JEET MONROY MD, Ot 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 04/02/2019 SARITA AYALA APRN Ot M27.2 INFLAMMATORY CONDITIONS OF JAWS 04/02/2019 SARITA AYALA APRN Ot M86.48 CHRONIC OSTEOMYELITIS WITH DRAINING SINU 04/02/2019 SARITA AYALA APRN Ot S01.80XA UNSPECIFIED OPEN WOUND OF OTHER PART OF 04/02/2019 SARITA AYALA APRN Ot X58.XXXA EXPOSURE TO OTHER SPECIFIED FACTORS, INI 04/02/2019 SARITA AYALA ELECTRICAL INSTALLATION INSPECTOR Ot 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 04/02/2019 JEET MONROY MD, Ot M27 .2 INFLAMMATORY CONDITIONS OF JAWS 04/02/2019 JEET MONROY MD, Ot M86.48 CHRONIC OSTEOMYELITIS WITH DRAINING SINU 04/02/2019 JEET MONROY MD, Ot S01.80XA UNSPECIFIED OPEN WOUND OF OTHER PART OF 04/02/2019 JEET MONROY MD, Ot X58.XXXA EXPOSURE TO OTHER SPECIFIED FACTORS, INI 04/02/2019 JEET MONROY MD, Ot Z79.83 SHELTER (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 04/02/2019 JEET MONROY MD, Ot M27 .2 INFLAMMATORY CONDITIONS OF JAWS 04/02/2019 JEET MONROY MD, Ot M86.48 CHRONIC OSTEOMYELITIS WITH DRAINING SINU 04/02/2019 JEET MONROY MD, Ot M27 .2 INFLAMMATORY CONDITIONS OF JAWS 04/02/2019 JEET MONROY MD, Ot M86.48 CHRONIC OSTEOMYELITIS WITH DRAINING SINU 04/02/2019 JEET MONROY MD, Ot M27 .2 INFLAMMATORY CONDITIONS OF JAWS 04/02/2019 JEET MONROY MD, Ot M86.48 CHRONIC OSTEOMYELITIS WITH DRAINING SINU 04/02/2019 JEET MONROY MD, Ot M27 .2 INFLAMMATORY CONDITIONS OF JAWS 04/02/2019 JEET MONROY MD, Ot M86.48 CHRONIC OSTEOMYELITIS WITH DRAINING SINU 04/02/2019 JEET MONROY MD, Ot M27 .2 INFLAMMATORY CONDITIONS OF JAWS 04/02/2019 JEET MONROY MD, Ot M86.48 CHRONIC OSTEOMYELITIS WITH DRAINING SINU 04/02/2019 JEET MONROY MD Ot I96 GANGRENE, NOT ELSEWHERE CLASSIFIED 04/02/2019 JEET MONROY MD Ot M27 .2 INFLAMMATORY CONDITIONS OF JAWS 04/02/2019 JEET MONROY MD, Ot M86.48 CHRONIC OSTEOMYELITIS WITH DRAINING SINU 04/02/2019 JEET MONROY MD Ot S01.80XA UNSPECIFIED OPEN WOUND OF OTHER PART OF 04/02/2019 JEET MONROY MD Ot I96 GANGRENE, NOT ELSEWHERE CLASSIFIED 04/02/2019 JEET MONROY MD Ot M27 .2 INFLAMMATORY CONDITIONS OF JAWS 04/02/2019 JEET MONROY MD Ot M86.48 CHRONIC OSTEOMYELITIS WITH DRAINING SINU 04/02/2019 JEET MONROY MD Ot S01.80XA UNSPECIFIED OPEN WOUND OF OTHER PART OF 04/06/2019 JEET MONROY MD Ot E44 .1 MILD PROTEIN-CALORIE MALNUTRITION 04/06/2019 JEET MONROY MD Ot M27 .2 INFLAMMATORY CONDITIONS OF JAWS 04/06/2019 JEET MONROY MD, Ot M86.48 CHRONIC OSTEOMYELITIS WITH DRAINING SINU 04/06/2019 JEET MONROY MD Ot S01.80XA UNSPECIFIED OPEN WOUND OF OTHER PART OF 04/07/2019 JEET MONROY MD Ot E44 .0 MODERATE PROTEIN-CALORIE MALNUTRITION 04/07/2019 JEET MONROY MD, Ot M27 .2 INFLAMMATORY CONDITIONS OF JAWS 04/07/2019 JEET MONROY MD, Ot M86.48 CHRONIC OSTEOMYELITIS WITH DRAINING SINU 04/07/2019 JEET MONROY MD, Ot S01.80XA UNSPECIFIED OPEN WOUND OF OTHER PART OF 04/07/2019 JEET MONROY MD, Ot Z79.83 SHELTER (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 04/07/2019 JEET MONROY MD, Ot L98.494 NON-PRS CHRONIC ULCER OF SKIN OF SITES W 04/07/2019 JEET MONROY MD, Ot E44 .0 MODERATE PROTEIN-CALORIE MALNUTRITION 04/07/2019 JEET MONROY MD, Ot M27 .2 INFLAMMATORY CONDITIONS OF JAWS 04/07/2019 JEET MONROY MD, Ot M86.48 CHRONIC OSTEOMYELITIS WITH DRAINING SINU 04/07/2019 JEET MONROY MD, Ot S01.80XA UNSPECIFIED OPEN WOUND OF OTHER PART OF 04/07/2019 JEET MONROY MD, Ot 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 04/07/2019 JEET MONROY MD, Ot E44 .0 MODERATE PROTEIN-CALORIE MALNUTRITION 04/07/2019 JEET MONRYO MD, Ot M27 .2 INFLAMMATORY CONDITIONS OF JAWS 04/07/2019 JEET MONROY MD, Ot M86.48 CHRONIC OSTEOMYELITIS WITH DRAINING SINU 04/07/2019 JEET MONROY MD, Ot S01.80XA UNSPECIFIED OPEN WOUND OF OTHER PART OF 04/07/2019 JEET MONROY MD, Ot Z79.83 SHELTER (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 04/07/2019 JEET MONROY MD, Ot E44 .0 MODERATE PROTEIN-CALORIE MALNUTRITION 04/07/2019 JEET MONROY MD, Ot M27 .2 INFLAMMATORY CONDITIONS OF JAWS 04/07/2019 JEET MONROY MD, Ot M86.48 CHRONIC OSTEOMYELITIS WITH DRAINING SINU 04/07/2019 JEET MONROY MD, Ot S01.80XA UNSPECIFIED OPEN WOUND OF OTHER PART OF 04/07/2019 JEET MONROY MD, Ot X58.XXXA EXPOSURE TO OTHER SPECIFIED FACTORS, INI 04/07/2019 JEET MONROY MD, Ot Z79.83 SHELTER (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 04/07/2019 JEET MONROY MD, Ot E44 .0 MODERATE PROTEIN-CALORIE MALNUTRITION 04/07/2019 JEET MONROY MD, Ot M27 .2 INFLAMMATORY CONDITIONS OF JAWS 04/07/2019 JEET MONROY MD, Ot M86.48 CHRONIC OSTEOMYELITIS WITH DRAINING SINU 04/07/2019 JEET MONROY MD, Ot S01.80XA UNSPECIFIED OPEN WOUND OF OTHER PART OF 04/07/2019 JEET MONROY MD, Ot X58.XXXA EXPOSURE TO OTHER SPECIFIED FACTORS, INI 04/07/2019 JEET MONROY MD, Ot 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 04/07/2019 JEET MONROY MD, Ot E44 .0 MODERATE PROTEIN-CALORIE MALNUTRITION 04/07/2019 JEET MONROY MD, Ot H61.21 IMPACTED CERUMEN, RIGHT EAR 04/07/2019 JEET MONROY MD, Ot M27 .2 INFLAMMATORY CONDITIONS OF JAWS 04/07/2019 JEET MONROY MD, Ot M86.48 CHRONIC OSTEOMYELITIS WITH DRAINING SINU 04/07/2019 JEET MONROY MD, Ot S01.80XA UNSPECIFIED OPEN WOUND OF OTHER PART OF 04/07/2019 JEET MONROY MD, Ot X58.XXXA EXPOSURE TO OTHER SPECIFIED FACTORS, INI 04/07/2019 JEET MONROY MD, Ot Z79.83 SHELTER (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 04/07/2019 JEET MONROY MD, Ot M27 .2 INFLAMMATORY CONDITIONS OF JAWS 04/07/2019 JEET MONROY MD, Ot M86.48 CHRONIC OSTEOMYELITIS WITH DRAINING SINU 04/07/2019 JEET MONROY MD, Ot S01.80XA UNSPECIFIED OPEN WOUND OF OTHER PART OF 04/07/2019 JEET MONROY MD, Ot T70.0XXA OTITIC BAROTRAUMA, INITIAL ENCOUNTER 04/07/2019 JEET MONROY MD, Ot X58.XXXA EXPOSURE TO OTHER SPECIFIED FACTORS, INI 04/07/2019 JEET MONROY MD, Ot Z79.83 SHELTER (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 04/07/2019 JEET MONROY MD, Ot M27 .2 INFLAMMATORY CONDITIONS OF JAWS 04/07/2019 JEET MONROY MD, Ot M86.48 CHRONIC OSTEOMYELITIS WITH DRAINING SINU 04/07/2019 ELIANA MD, JEET G Ot S01.80XA UNSPECIFIED OPEN WOUND OF OTHER PART OF 04/07/2019 JEET MONROY MD Ot X58.XXXA EXPOSURE TO OTHER SPECIFIED FACTORS, INI 04/07/2019 JEET MONROY MD, Ot Z79.83 SHELTER (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 04/07/2019 SARITA AYALA APRN Ot M27.2 INFLAMMATORY CONDITIONS OF JAWS 04/07/2019 SARITA AYALA APRN Ot M86.48 CHRONIC OSTEOMYELITIS WITH DRAINING SINU 04/07/2019 SARITA AYALA ELECTRICAL INSTALLATION INSPECTOR Ot S01.80XA UNSPECIFIED OPEN WOUND OF OTHER PART OF 04/07/2019 SARITA AYALA APRN Ot X58.XXXA EXPOSURE TO OTHER SPECIFIED FACTORS, INI 04/07/2019 SARITA AYALA APRN Ot 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 04/07/2019 JEET MONROY MD, Ot M27 .2 INFLAMMATORY CONDITIONS OF JAWS 04/07/2019 JEET MONROY MD, Ot M86.48 CHRONIC OSTEOMYELITIS WITH DRAINING SINU 04/07/2019 JEET MONROY MD, Ot S01.80XA UNSPECIFIED OPEN WOUND OF OTHER PART OF 04/07/2019 JEET MONROY MD, Ot X58.XXXA EXPOSURE TO OTHER SPECIFIED FACTORS, INI 04/07/2019 JEET MONROY MD, Ot 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 04/07/2019 JEET MONROY MD, Ot M27 .2 INFLAMMATORY CONDITIONS OF JAWS 04/07/2019 JEET MONROY MD, Ot M86.48 CHRONIC OSTEOMYELITIS WITH DRAINING SINU 04/07/2019 JEET MONROY MD, Ot M27 .2 INFLAMMATORY CONDITIONS OF JAWS 04/07/2019 JEET MONROY MD, Ot M86.48 CHRONIC OSTEOMYELITIS WITH DRAINING SINU 04/07/2019 JEET MONROY MD, Ot M27 .2 INFLAMMATORY CONDITIONS OF JAWS 04/07/2019 JEET MONROY MD, Ot M86.48 CHRONIC OSTEOMYELITIS WITH DRAINING SINU 04/07/2019 JEET MONROY MD, Ot M27 .2 INFLAMMATORY CONDITIONS OF JAWS 04/07/2019 JEET MONROY MD, Ot M86.48 CHRONIC OSTEOMYELITIS WITH DRAINING SINU 04/07/2019 JEET MONROY MD, Ot M27 .2 INFLAMMATORY CONDITIONS OF JAWS 04/07/2019 JEET MONROY MD, Ot M86.48 CHRONIC OSTEOMYELITIS WITH DRAINING SINU 04/07/2019 JEET MONROY MD, Ot I96 GANGRENE, NOT ELSEWHERE CLASSIFIED 04/07/2019 JEET MONROY MD, Ot M27 .2 INFLAMMATORY CONDITIONS OF JAWS 04/07/2019 JEET MONROY MD, Ot M86.48 CHRONIC OSTEOMYELITIS WITH DRAINING SINU 04/07/2019 JEET MONROY MD, Ot S01.80XA UNSPECIFIED OPEN WOUND OF OTHER PART OF 04/07/2019 JEET MONROY MD, Ot I96 GANGRENE, NOT ELSEWHERE CLASSIFIED 04/07/2019 JEET MONROY MD, Ot M27 .2 INFLAMMATORY CONDITIONS OF JAWS 04/07/2019 JEET MONROY MD, Ot M86.48 CHRONIC OSTEOMYELITIS WITH DRAINING SINU 04/07/2019 JEET MONROY MD, Ot S01.80XA UNSPECIFIED OPEN WOUND OF OTHER PART OF 04/07/2019 JEET MONROY MD, Ot E44 .1 MILD PROTEIN-CALORIE MALNUTRITION 04/07/2019 JEET MONROY MD, Ot I96 GANGRENE, NOT ELSEWHERE CLASSIFIED 04/07/2019 JEET MONROY MD, Ot M27 .2 INFLAMMATORY CONDITIONS OF JAWS 04/07/2019 JEET MONROY MD, Ot M46.48 DISCITIS, UNSPECIFIED, SACRAL AND SACROC 04/07/2019 JEET MONROY MD, Ot S01.80XA UNSPECIFIED OPEN WOUND OF OTHER PART OF 04/07/2019 JEET MONROY MD, Ot E44 .1 MILD PROTEIN-CALORIE MALNUTRITION 04/07/2019 JEET MONROY MD, Ot M27 .2 INFLAMMATORY CONDITIONS OF JAWS 04/07/2019 JEET MONROY MD, Ot M86.48 CHRONIC OSTEOMYELITIS WITH DRAINING SINU 04/07/2019 JEET MONROY MD, Ot S01.80XA UNSPECIFIED OPEN WOUND OF OTHER PART OF 04/09/2019 JEET MONROY MD, Ot E44 .1 MILD PROTEIN-CALORIE MALNUTRITION 04/09/2019 JEET MONROY MD, Ot I96 GANGRENE, NOT ELSEWHERE CLASSIFIED 04/09/2019 JEET MONROY MD, Ot M27 .2 INFLAMMATORY CONDITIONS OF JAWS 04/09/2019 JEET MONROY MD, Ot M86.48 CHRONIC OSTEOMYELITIS WITH DRAINING SINU 04/09/2019 ELIANA MD, JEET G Ot S01.80XA UNSPECIFIED OPEN WOUND OF OTHER PART OF 04/13/2019 JEET MONROY MD, Ot E44 .1 MILD PROTEIN-CALORIE MALNUTRITION 04/13/2019 JEET MONROY MD, Ot M27 .2 INFLAMMATORY CONDITIONS OF JAWS 04/13/2019 JEET MONROY MD, Ot M86.48 CHRONIC OSTEOMYELITIS WITH DRAINING SINU 04/13/2019 EJET MONROY MD, Ot S01.80XA UNSPECIFIED OPEN WOUND OF OTHER PART OF 04/13/2019 JEET MONROY MD, Ot E44 .1 MILD PROTEIN-CALORIE MALNUTRITION 04/13/2019 JEET MONROY MD, Ot M27 .2 INFLAMMATORY CONDITIONS OF JAWS 04/13/2019 JEET MONROY MD, Ot M86.48 CHRONIC OSTEOMYELITIS WITH DRAINING SINU 04/13/2019 JEET MONROY MD, Ot S01.80XA UNSPECIFIED OPEN WOUND OF OTHER PART OF 04/15/2019 JEET MONROY MD, Ot I96 GANGRENE, NOT ELSEWHERE CLASSIFIED 04/15/2019 JEET MONROY MD, Ot M27 .2 INFLAMMATORY CONDITIONS OF JAWS 04/15/2019 JEET MONROY MD, Ot M86.48 CHRONIC OSTEOMYELITIS WITH DRAINING SINU 04/15/2019 JEET MONROY MD, Ot S01.80XA UNSPECIFIED OPEN WOUND OF OTHER PART OF 04/26/2019 JEET MONROY MD, Ot E44 .1 MILD PROTEIN-CALORIE MALNUTRITION 04/26/2019 JEET MONROY MD, Ot I96 GANGRENE, NOT ELSEWHERE CLASSIFIED 04/26/2019 JEET MONROY MD, Ot M27 .2 INFLAMMATORY CONDITIONS OF JAWS 04/26/2019 JEET MONROY MD, Ot M46.48 DISCITIS, UNSPECIFIED, SACRAL AND SACROC 04/26/2019 JEET MONROY MD, Ot S01.80XA UNSPECIFIED OPEN WOUND OF OTHER PART OF 04/27/2019 JEET MONROY MD, Ot E44 .1 MILD PROTEIN-CALORIE MALNUTRITION 04/27/2019 JEET MONROY MD, Ot M27 .2 INFLAMMATORY CONDITIONS OF JAWS 04/27/2019 JEET MONROY MD, Ot M86.48 CHRONIC OSTEOMYELITIS WITH DRAINING SINU 04/27/2019 JEET MONROY MD Ot S01.80XA UNSPECIFIED OPEN WOUND OF OTHER PART OF 04/28/2019 JEET MONROY MD, Ot E44 .1 MILD PROTEIN-CALORIE MALNUTRITION 04/28/2019 JEET MONROY MD, Ot I96 GANGRENE, NOT ELSEWHERE CLASSIFIED 04/28/2019 JEET MONROY MD, Ot M27 .2 INFLAMMATORY CONDITIONS OF JAWS 04/28/2019 JEET MONROY MD, Ot M86.48 CHRONIC OSTEOMYELITIS WITH DRAINING SINU 04/28/2019 JEET MONROY MD, Ot S01.80XA UNSPECIFIED OPEN WOUND OF OTHER PART OF 05/03/2019 JEET MONROY MD, Ot E44 .1 MILD PROTEIN-CALORIE MALNUTRITION 05/03/2019 JEET MONROY MD, Ot M27 .2 INFLAMMATORY CONDITIONS OF JAWS 05/03/2019 JEET MONROY MD, Ot M86.48 CHRONIC OSTEOMYELITIS WITH DRAINING SINU 05/03/2019 JEET MONROY MD, Ot S01.80XA UNSPECIFIED OPEN WOUND OF OTHER PART OF 05/14/2019 JEET MONROY MD, Ot E44 .1 MILD PROTEIN-CALORIE MALNUTRITION 05/14/2019 JEET MONROY MD, Ot M27 .2 INFLAMMATORY CONDITIONS OF JAWS 05/14/2019 JEET MONROY MD, Ot M86.48 CHRONIC OSTEOMYELITIS WITH DRAINING SINU 05/14/2019 JEET MONROY MD, Ot S01.80XA UNSPECIFIED OPEN WOUND OF OTHER PART OF 05/14/2019 JEET MONROY MD, Ot E44 .1 MILD PROTEIN-CALORIE MALNUTRITION 05/14/2019 JEET MONROY MD, Ot M27 .2 INFLAMMATORY CONDITIONS OF JAWS 05/14/2019 JEET MONROY MD, Ot M86.48 CHRONIC OSTEOMYELITIS WITH DRAINING SINU 05/14/2019 JEET MONROY MD, Ot S01.80XA UNSPECIFIED OPEN WOUND OF OTHER PART OF 05/14/2019 JEET MONROY MD, Ot E44 .1 MILD PROTEIN-CALORIE MALNUTRITION 05/14/2019 JEET MONROY MD, Ot M27 .2 INFLAMMATORY CONDITIONS OF JAWS 05/14/2019 JEET MONROY MD, Ot M86.48 CHRONIC OSTEOMYELITIS WITH DRAINING SINU 05/14/2019 JEET MONROY MD, Ot S01.80XA UNSPECIFIED OPEN WOUND OF OTHER PART OF 05/18/2019 JEET MONROY MD, Ot E44 .1 MILD PROTEIN-CALORIE MALNUTRITION 05/18/2019 JEET MONROY MD, Ot M27 .2 INFLAMMATORY CONDITIONS OF JAWS 05/18/2019 JEET MONROY MD, Ot M86.48 CHRONIC OSTEOMYELITIS WITH DRAINING SINU 05/18/2019 JEET MONROY MD Ot S01.80XA UNSPECIFIED OPEN WOUND OF OTHER PART OF 05/19/2019 JEET MONROY MD, Ot E44 .1 MILD PROTEIN-CALORIE MALNUTRITION 05/19/2019 JEET MONROY MD Ot M27 .2 INFLAMMATORY CONDITIONS OF JAWS 05/19/2019 JEET MONROY MD, Ot M86.48 CHRONIC OSTEOMYELITIS WITH DRAINING SINU 05/19/2019 JEET MONROY MD, Ot S01.80XA UNSPECIFIED OPEN WOUND OF OTHER PART OF 06/08/2019 HAILEY STANLEY MD Ot M81.0 AGE-RELATED OSTEOPOROSIS W/O CURRENT PAT 06/09/2019 HAILEY STANLEY MD, Ot M81.0 AGE-RELATED OSTEOPOROSIS W/O CURRENT PAT 06/15/2019 JEET MONROY MD, Ot E44 .1 MILD PROTEIN-CALORIE MALNUTRITION 06/15/2019 JEET MONROY MD, Ot M27 .2 INFLAMMATORY CONDITIONS OF JAWS 06/15/2019 JEET MONROY MD, Ot M86.48 CHRONIC OSTEOMYELITIS WITH DRAINING SINU 06/15/2019 JEET MONROY MD, Ot S01.80XA UNSPECIFIED OPEN WOUND OF OTHER PART OF 06/17/2019 JESSE PHILLIPS DO Ot B37.2 CANDIDIASIS OF SKIN AND NAIL 06/17/2019 JESSE PHILLIPS DO Ot E46 UNSPECIFIED PROTEIN-CALORIE MALNUTRITION 06/17/2019 JESSE PHILLIPS DO Ot E53.8 DEFICIENCY OF OTHER SPECIFIED B GROUP 06/17/2019 JESSE PHILLIPS DO Ot F32.9 MAJOR DEPRESSIVE DISORDER, SINGLE EPISOD 06/17/2019 JESSE PHILLIPS DO Ot F41.9 ANXIETY DISORDER, UNSPECIFIED 06/17/2019 JESSE PHILLIPS DO Ot G43.90 9 MIGRAINE, UNSP, NOT INTRACTABLE, WITHOUT 06/17/2019 JESSE PHILLIPS DO Ot G70.01 MYASTHENIA GRAVIS WITH (ACUTE) EXACERBAT 06/17/2019 EJSSE PHILLIPS DO Ot H02.42 2 MYOGENIC PTOSIS OF LEFT EYELID 06/17/2019 JESSE PHILLIPS DO Ot H53.2 DIPLOPIA 06/17/2019 JESSE PHILLIPS DO Ot H55.09 OTHER FORMS OF NYSTAGMUS 06/17/2019 JESSE PHILLIPS DO Ot K52.9 NONINFECTIVE GASTROENTERITIS AND COLITIS 06/17/2019 JESSE PHILLIPS DO Ot K90.9 INTESTINAL MALABSORPTION, UNSPECIFIED 06/17/2019 JESSE PHILLIPS DO Ot K94.12 ENTEROSTOMY INFECTION 06/17/2019 JESSE PHILLIPS DO Ot K94.19 OTHER COMPLICATIONS OF ENTEROSTOMY 06/17/2019 JESSE PHILLIPS DO Ot M81.0 AGE-RELATED OSTEOPOROSIS W/O CURRENT PAT 06/17/2019 JESSE PHILLIPS DO Ot M87.88 OTHER OSTEONECROSIS, OTHER SITE 06/17/2019 JESSE PHILLIPS DO Ot R53.1 WEAKNESS 06/17/2019 JESSE PHILLIPS DO Ot R53.81 OTHER MALAISE 06/17/2019 JESSE PHILLIPS DO Ot R64 CACHEXIA 06/17/2019 JESSE PHILLIPS DO Ot Z79.89 9 OTHER ESL PROFESSOR (CURRENT) DRUG THERAPY 06/17/2019 JESSE PHILLIPS DO Ot Z87.01 PERSONAL HISTORY OF PNEUMONIA (RECURRENT 06/17/2019 JESSE PHILLIPS DO Ot Z87.19 PERSONAL HISTORY OF OTHER DISEASES OF TH 06/17/2019 JESSE PHILLIPS DO Ot Z93.4 OTHER ARTIFICIAL OPENINGS OF GASTROINTES 06/22/2019 SELF HAILEY TORRES Ot M81.0 AGE-RELATED OSTEOPOROSIS W/O CURRENT PAT 07/07/2019 SELF HAILEY TORRES Ot M81.0 AGE-RELATED OSTEOPOROSIS W/O CURRENT PAT 07/07/2019 SELF HAILEY TORRES Ot M81.0 AGE-RELATED OSTEOPOROSIS W/O CURRENT PAT 07/29/2019 JAIRO TORRES APRN Ot F41 .9 ANXIETY DISORDER, UNSPECIFIED 07/29/2019 JAIRO TORRES APRN Ot M25.511 PAIN IN RIGHT SHOULDER 07/29/2019 JAIRO TORRES APRN Ot S42.031A DISP FX OF LATERAL END OF RIGHT CLAVICLE 07/29/2019 JAIRO TORRES APRN Ot W01.10XA FALL SAME LEV FROM SLIP/TRIP W STRIKE AG 07/29/2019 JAIRO TORRES APRN Ot Y92.[address] OF OCCURRENCE O 07/29/2019 JAIRO TORRES APRN Ot Z79.52 ESL PROFESSOR (CURRENT) USE OF SYSTEMIC STER 07/29/2019 JAIRO TORRES APRN Ot Z80 .1 FAMILY HISTORY OF MALIG NEOPLASM OF TRAC 07/29/2019 JAIRO TORRES APRN Ot Z88 .8 ALLERGY STATUS TO OTH DRUG/MEDS/BIOL SUB 07/29/2019 JAIRO TORRES APRN Ot Z90.49 ACQUIRED ABSENCE OF OTHER SPECIFIED PART 07/29/2019 JAIRO TORRES APRN Ot Z90.81 ACQUIRED ABSENCE OF SPLEEN 10/15/2019 SELF HAILEY TORRES Ot M48.54 XA COLLAPSED VERTEBRA, NEC, THORACIC REGION 10/15/2019 SELF HAILEY TORRES Ot M51.36 OTHER INTERVERTEBRAL DISC DEGENERATION, 11/02/2019 SELF HAILEY TORRES Ot M48.54 XA COLLAPSED VERTEBRA, NEC, THORACIC REGION 11/02/2019 SELF HAILEY TORRES Ot M51.36 OTHER INTERVERTEBRAL DISC DEGENERATION, 12/01/2019 O'DELL, CYN Gavin ELECTRICAL INSTALLATION INSPECTOR Ot M19.011 PRIMARY OSTEOARTHRITIS, RIGHT SHOULDER 12/01/2019 O'DELL, CYN Gavin ELECTRICAL INSTALLATION INSPECTOR Ot M89.8X1 OTHER SPECIFIED DISORDERS OF BONE, SHOUL 12/01/2019 O'DELL, CYN Gavin ELECTRICAL INSTALLATION INSPECTOR Ot R07.89 OTHER CHEST PAIN 12/01/2019 O'DELL, CYN K ELECTRICAL INSTALLATION INSPECTOR Ot S22.31XA FRACTURE OF ONE RIB, RIGHT SIDE, INIT FO 12/01/2019 O'DELL, CYN Gavin ELECTRICAL INSTALLATION INSPECTOR Ot S42.001K FRACTURE OF UNSP PART OF R CLAVICLE, SUB 12/01/2019 O'DELL, CYN Gavin ELECTRICAL INSTALLATION INSPECTOR Ot W19.XXXA UNSPECIFIED FALL, INITIAL ENCOUNTER Procedures There is no data. Results Test Result Range Complete blood count (CBC) with automate d white blood cell (WBC) differential - 09/28/18 11:24 Blood leukocytes automated count (number/volume) 9.6 10*3/uL 4.3-11.0 Blood erythrocytes automated count (number/volume) 3.24 10*6/uL 4.35-5.85 Venous blood hemoglobin measurement (mass/volume) 10.7 g/dL 11.5-16.0 Blood hematocrit (volume fraction) 34 % 35-52 Automated erythrocyte mean corpuscular volume 105 [foz_us] 80-99 Automated erythrocyte mean corpuscular h emoglobin (mass per erythrocyte) 33 pg 25-34 Automated erythrocyte mean corpuscular h emoglobin concentration measurement (mass/volume) 32 g/dL 32-36 Automated erythrocyte distribution width ratio 13. 5 % 10.0- 14.5 Automated blood platelet count (count/volume) 319 10*3/uL 130-400 Automated blood platelet mean volume measurement 10.3 [foz_us] 7.4-10.4 Automated blood neutrophils/100 leukocytes 71 % 42-75 Automated blood lymphocytes/100 leukocytes 22 % 12-44 Blood monocytes/100 leukocytes 6 % 0-12 Automated blood eosinophils/100 leukocytes 1 % 0-10 Automated blood basophils/100 leukocytes 1 % 0-10 Blood neutrophils automated count (number/volume) 6.8 10*3 1.8-7.8 Blood lymphocytes automated count (number/volume) 2.1 10*3 1.0-4.0 Blood monocytes automated count (number/volume) 0. 6 10*3 0.0-1.0 Automated eosinophil count 0.1 10*3/uL 0 .0-0.3 Automated blood basophil count (count/volume) 0.1 10*3/uL 0.0-0.1 CBC w/MANUAL DIFF - 01/20/19 12:23 WHITE BLOOD CELL COUNT 9.1 Thousand/uL 3 .8-10.8 RED BLOOD CELL COUNT 3.45 Million/uL 3.8 0-5.10 HEMOGLOBIN 11.1 g/dL 11.7-15.5 HEMATOCRIT 34.7 % 35.0-45.0 MCV 100.6 fL 80.0-100.0 MCH 32.2 pg 27.0-33.0 MCHC 32.0 g/dL 32.0-36.0 RDW 12.9 % 11.0-15.0 PLATELET COUNT 413 Thousand/uL 140-400 MPV 10.7 fL 7.5-12.5 ABSOLUTE NEUTROPHILS 4596 cells/uL 1500- 7800 ABSOLUTE MONOCYTES 619 cells/uL 200-950 ABSOLUTE EOSINOPHILS 173 cells/uL 15-500 ABSOLUTE BASOPHILS 446 cells/uL 0-200 NEUTROPHILS 50.5 % NRG LYMPHOCYTES 33.0 % NRG MONOCYTES 6.8 % NRG EOSINOPHILS 1.9 % NRG BASOPHILS 4.9 % NRG ABSOLUTE BAND NEUTROPHILS 264 cells/uL 0 -750 ABSOLUTE LYMPHOCYTES 3003 cells/uL 850-3 900 BAND NEUTROPHILS 2.9 % NRG PLATELET ESTIMATION ADEQUATE ADEQUATE CBC MORPHOLOGY NORMAL COMMENT(S) NRG Erythrocyte sedimentation rate by jose alfredo gren method - 04/02/19 09:23 Erythrocyte sedimentation rate by westergren method 25 mm 0- 30 Prealbumin - 04/02/19 09:23 Serum or plasma prealbumin measurement (mass/volume) 15.3 % 18.0-37.0 Bacteria identification in isolate by an aerobe culture - 04/02/19 14:00 FREE TEXT EXTERNAL LARGE AMOUNT OF MIXED ANAEROBIC ANNIKA NRG QUANTITY OF GROWTH . NRG Bacteria identification in isolate by anaerobe culture [id number] NRG FREE TEXT EXTERNAL 2 INCLUDING ABOVE LISTED ORGANI SMS NRG FREE TEXT EXTERNAL 3 SEE COMMENTS NRG Gram stain microscopy - 04/02/19 14:00 Gram stain microscopy Mixed Bacterial Annika NRG Bacteria identification in wound by cult ure - 04/02/19 14:00 Bacteria identification in wound by culture [id number] NRG FREE TEXT EXTERNAL BETA LACTAMASE NEGATIVE NRG QUANTITY OF GROWTH . NRG FREE TEXT ENTRY 2 RML REPORTED ID'S 04/06/19 15:05 NRG Serum or plasma C reactive protein measu rement (mass/volume) - 04/09/19 14:27 Serum or plasma C reactive protein measurement (mass/v olume) 0.25 mg/dL 0.00-0.50 VITAMIN D, 25-H - 05/18/19 09:39 VITAMIN D,25-OH,TOTAL,IA 11 ng/mL 30-10 0 PDM - 09 PANEL (PROFILE 1) - 05/20/19 13 :01 Prescribed Drug 1 Aceta w/Codeine NRG Creatinine 68.9 mg/dL > or = 20.0 pH 5.8 4.5-9.0 Oxidant NEGATIVE mcg/mL <200 Amphetamines NEGATIVE ng/mL <500 medMATCH Amphetamines CONSISTENT NRG Benzodiazepines POSITIVE ng/mL <100 Marijuana Metabolite NEGATIVE ng/mL <20 medMATCH Marijuana Metab CONSISTENT NRG Cocaine Metabolite NEGATIVE ng/mL <150 medMATCH Cocaine Metab CONSISTENT NRG Opiates NEGATIVE ng/mL <100 medMATCH Opiates INCONSISTENT NRG Oxycodone NEGATIVE ng/mL <100 medMATCH Oxycodone CONSISTENT NRG COMMENT NRG Alphahydroxyalprazolam NEGATIVE ng/mL <25 medMATCH aOH alprazolam CONSISTENT NRG Alphahydroxymidazolam NEGATIVE ng/mL < 50 medMATCH aOH midazolam CONSISTENT NRG Alphahydroxytriazolam NEGATIVE ng/mL < 50 medMATCH aOH triazolam CONSISTENT NRG Aminoclonazepam NEGATIVE ng/mL <25 medMATCH Aminoclonazepam CONSISTENT NRG Hydroxyethylflurazepam NEGATIVE ng/mL <50 medMATCH OH,Et flurazepam CONSISTENT NR G Lorazepam NEGATIVE ng/mL <50 medMATCH Lorazepam CONSISTENT NRG Nordiazepam NEGATIVE ng/mL <50 medMATCH Nordiazepam CONSISTENT NRG Oxazepam 270 ng/mL <50 medMATCH Oxazepam INCONSISTENT NRG Temazepam >6250 ng/mL <50 medMATCH Temazepam INCONSISTENT NRG Barbiturates NEGATIVE ng/mL <300 medMATCH Barbiturates CONSISTENT NRG Methadone Metabolite NEGATIVE ng/mL <100 medMATCH Methadone Metab CONSISTENT NRG Phencyclidine NEGATIVE ng/mL <25 medMATCH Phencyclidine CONSISTENT NRG Complete blood count (CBC) with automate d white blood cell (WBC) differential - 06/11/19 05:30 Blood leukocytes automated count (number/volume) 7.3 10*3/uL 4.3-11.0 Blood erythrocytes automated count (number/volume) 3.42 10*6/uL 4.35-5.85 Venous blood hemoglobin measurement (mass/volume) 10.8 g/dL 11.5-16.0 Blood hematocrit (volume fraction) 34 % 35-52 Automated erythrocyte mean corpuscular volume 99 [ foz_us] 80-99 Automated erythrocyte mean corpuscular h emoglobin (mass per erythrocyte) 32 pg 25-34 Automated erythrocyte mean corpuscular h emoglobin concentration measurement (mass/volume) 32 g/dL 32-36 Automated erythrocyte distribution width ratio 16. 8 % 10.0- 14.5 Automated blood platelet count (count/volume) 465 10*3/uL 130-400 Automated blood platelet mean volume measurement 12.1 [foz_us] 7.4-10.4 Automated blood neutrophils/100 leukocytes 42 % 42-75 Automated blood lymphocytes/100 leukocytes 37 % 12-44 Blood monocytes/100 leukocytes 16 % 0-12 Automated blood eosinophils/100 leukocytes 3 % 0-10 Automated blood basophils/100 leukocytes 2 % 0-10 Blood neutrophils automated count (number/volume) 3.1 10*3 1.8-7.8 Blood lymphocytes automated count (number/volume) 2.7 10*3 1.0-4.0 Blood monocytes automated count (number/volume) 1. 2 10*3 0.0-1.0 Automated eosinophil count 0.2 10*3/uL 0 .0-0.3 Automated blood basophil count (count/volume) 0.2 10*3/uL 0.0-0.1 Comprehensive metabolic panel - 06/11/19 05:30 Serum or plasma sodium measurement (moles/volume) 141 mmol/L 135-145 Serum or plasma potassium measurement (moles/volume) 3.8 mmol/L 3.6-5.0 Serum or plasma chloride measurement (moles/volume) 108 mmol/L 98-107 Carbon dioxide 26 mmol/L 21-32 Serum or plasma anion gap determination (moles/volume) 7 mmol/L 5-14 Serum or plasma urea nitrogen measurement (mass/volume ) 17 mg/dL 7-18 Serum or plasma creatinine measurement (mass/volume) 0.67 mg/dL 0.60-1.30 Serum or plasma urea nitrogen/creatinine mass ratio 25 NRG Serum or plasma creatinine measurement w ith calculation of estimated glomerular filtration rate > NRG Serum or plasma glucose measurement (mass/volume) 98 mg/dL 70-105 Serum or plasma calcium measurement (mass/volume) 7.9 mg/dL 8.5-10.1 Serum or plasma total bilirubin measurement (mass/volu me) 0.3 mg/dL 0.1-1.0 Serum or plasma alkaline phosphatase david surement (enzymatic activity/volume) 75 U/L 40-136 Serum or plasma aspartate aminotransfera se measurement (enzymatic activity/volume) 33 U/L 5-34 Serum or plasma alanine aminotransferase measurement (enzymatic activity/volume) 23 U/L 0-55 Serum or plasma protein measurement (mass/volume) 5.7 g/dL 6.4-8.2 Serum or plasma albumin measurement (mass/volume) 3.9 g/dL 3.2-4.5 CALCIUM CORRECTED 8.0 mg/dL 8.5-10.1 Complete blood count (CBC) with automate d white blood cell (WBC) differential - 06/14/19 05:05 Blood leukocytes automated count (number/volume) 7.2 10*3/uL 4.3-11.0 Blood erythrocytes automated count (number/volume) 3.44 10*6/uL 4.35-5.85 Venous blood hemoglobin measurement (mass/volume) 10.8 g/dL 11.5-16.0 Blood hematocrit (volume fraction) 35 % 35-52 Automated erythrocyte mean corpuscular volume 101 [foz_us] 80-99 Automated erythrocyte mean corpuscular h emoglobin (mass per erythrocyte) 31 pg 25-34 Automated erythrocyte mean corpuscular h emoglobin concentration measurement (mass/volume) 31 g/dL 32-36 Automated erythrocyte distribution width ratio 16. 4 % 10.0- 14.5 Automated blood platelet count (count/volume) 530 10*3/uL 130-400 Automated blood platelet mean volume measurement 11.2 [foz_us] 7.4-10.4 Automated blood neutrophils/100 leukocytes 51 % 42-75 Automated blood lymphocytes/100 leukocytes 28 % 12-44 Blood monocytes/100 leukocytes 16 % 0-12 Automated blood eosinophils/100 leukocytes 5 % 0-10 Automated blood basophils/100 leukocytes 2 % 0-10 Blood neutrophils automated count (number/volume) 3.7 10*3 1.8-7.8 Blood lymphocytes automated count (number/volume) 2.0 10*3 1.0-4.0 Blood monocytes automated count (number/volume) 1. 1 10*3 0.0-1.0 Automated eosinophil count 0.3 10*3/uL 0 .0-0.3 Automated blood basophil count (count/volume) 0.1 10*3/uL 0.0-0.1 Comprehensive metabolic panel - 06/14/19 05:05 Serum or plasma sodium measurement (moles/volume) 140 mmol/L 135-145 Serum or plasma potassium measurement (moles/volume) 4.0 mmol/L 3.6-5.0 Serum or plasma chloride measurement (moles/volume) 107 mmol/L 98-107 Carbon dioxide 24 mmol/L 21-32 Serum or plasma anion gap determination (moles/volume) 9 mmol/L 5-14 Serum or plasma urea nitrogen measurement (mass/volume ) 20 mg/dL 7-18 Serum or plasma creatinine measurement (mass/volume) 0.79 mg/dL 0.60-1.30 Serum or plasma urea nitrogen/creatinine mass ratio 25 NRG Serum or plasma creatinine measurement w ith calculation of estimated glomerular filtration rate > NRG Serum or plasma glucose measurement (mass/volume) 58 mg/dL 70-105 Serum or plasma calcium measurement (mass/volume) 8.5 mg/dL 8.5-10.1 Serum or plasma total bilirubin measurement (mass/volu me) 0.3 mg/dL 0.1-1.0 Serum or plasma alkaline phosphatase david surement (enzymatic activity/volume) 72 U/L 40-136 Serum or plasma aspartate aminotransfera se measurement (enzymatic activity/volume) 29 U/L 5-34 Serum or plasma alanine aminotransferase measurement (enzymatic activity/volume) 24 U/L 0-55 Serum or plasma protein measurement (mass/volume) 5.8 g/dL 6.4-8.2 Serum or plasma albumin measurement (mass/volume) 3.7 g/dL 3.2-4.5 CALCIUM CORRECTED 8.7 mg/dL 8.5-10.1 Capillary blood glucose measurement by g lucometer (mass/volume) - 06/14/19 06:52 Capillary blood glucose measurement by glucometer (mas s/volume) 132 mg/dL 70-110 [facility] - 10/12/19 12:04 GLUCOSE 89 mg/dL 65-99 UREA NITROGEN (BUN) 18 mg/dL 7-25 CREATININE 1.01 mg/dL 0.50-0.99 eGFR NON-AFR. MONTENEGRIN 57 mL/min/1.73m2 > OR = 60 eGFR 66 mL/min/1.73m2 > OR = 60 BUN/CREATININE RATIO 18 (calc) 6-22 SODIUM 140 mmol/L 135-146 POTASSIUM 4.4 mmol/L 3.5-5.3 CHLORIDE 108 mmol/L 98-110 CARBON DIOXIDE 25 mmol/L 20-32 CALCIUM 8.3 mg/dL 8.6-10.4 PROTEIN, TOTAL 7.1 g/dL 6.1-8.1 ALBUMIN 2.9 g/dL 3.6-5.1 GLOBULIN 4.2 g/dL (calc) 1.9-3.7 ALBUMIN/GLOBULIN RATIO 0.7 (calc) 1.0-2. 5 BILIRUBIN, TOTAL 0.3 mg/dL 0.2-1.2 ALKALINE PHOSPHATASE 144 U/L 37-153 AST 80 U/L 10-35 ALT 43 U/L 6-29 CMP - 03/23/20 17:01 GLUCOSE 117 mg/dL 65-139 UREA NITROGEN (BUN) 20 mg/dL 7-25 CREATININE 1.30 mg/dL 0.60-0.93 eGFR NON-AFR. MONTENEGRIN 42 mL/min/1.73m2 > OR = 60 eGFR 48 mL/min/1.73m2 > OR = 60 BUN/CREATININE RATIO 15 (calc) 6-22 SODIUM 137 mmol/L 135-146 POTASSIUM 4.2 mmol/L 3.5-5.3 CHLORIDE 103 mmol/L 98-110 CARBON DIOXIDE 25 mmol/L 20-32 CALCIUM 8.6 mg/dL 8.6-10.4 PROTEIN, TOTAL 6.7 g/dL 6.1-8.1 ALBUMIN 2.5 g/dL 3.6-5.1 GLOBULIN 4.2 g/dL (calc) 1.9-3.7 ALBUMIN/GLOBULIN RATIO 0.6 (calc) 1.0-2. 5 BILIRUBIN, TOTAL 0.3 mg/dL 0.2-1.2 ALKALINE PHOSPHATASE 226 U/L 37-153 AST 48 U/L 10-35 ALT 27 U/L 6-29 Encounters ACCT No. Visit Date/Time Discharge Status Pt. Type Provider Facility Loc./Unit Complaint [id number] 10/15/2019 11:40:00 10/15/2019 23:59: 59 CLS Outpatient SELFHAILEY [facility] [id number] 11/08/2019 16:00:00 Document Registration [id number] 10/12/2019 11:00:00 Document Registration [id number] 05/20/2019 12:40:00 Document Registration [id number] 05/18/2019 09:00:00 Document Registration [id number] 01/20/2019 13:20:00 Document Registration [id number] 11/30/2019 16:01:00 23:59:59 CLS Outpatient CYN AZUL APRN [facility] RAD FS FALL [id number] 10/12/2019 11:50:00 23:59:59 CLS Outpatient SELF HAILEY TORRES [facility] RAD FS M54.6 [id number] 07/29/2019 15:32:00 019 16:50:00 DIS Emergency JAIRO TORRES APRN [facility] ER FALL [id number] 06/09/2019 21:01:00 11:50:00 DIS Inpatient JESSE PHILLIPS DO [facility] IRF MYASTHENIA GRAVIS [id number] 05/26/2019 08:20:00 23:59:59 CLS Preadmit SELF HAILEY TORRES [facility] RAD OSTEOPOROSIS [id number] 05/24/2019 08:21:00 23:59:59 CLS Outpatient JEET MONROY MD [facility] WOUNDCARE [id number] 05/18/2019 09:28:00 23:59:59 CLS Outpatient HAILEY STANLEY MD [facility] RAD FS M54.6 [id number] 05/12/2019 09:54:00 23:59:59 CLS Outpatient JEET MONROY MD [facility] WOUNDCARE [id number] 04/28/2019 10:19:00 23:59:59 CLS Outpatient JEET OMNROY MD [facility] WOUNDCARE [id number] 04/23/2019 11:58:00 23:59:59 CLS Outpatient JEET MONROY MD [facility] WOUNDCARE [id number] 04/16/2019 08:04:00 23:59:59 CLS Outpatient JEET MONROY MD [facility] WOUNDCARE [id number] 04/09/2019 14:48:00 23:59:59 CLS Outpatient JEET MONROY MD [facility] LAB FS M86.48 S01.80XA M27.2 E 44.1 [id number] 04/07/2019 14:37:00 23:59:59 CLS Outpatient JEET MONROY MD [facility] WOUNDCARE [id number] 04/02/2019 09:00:00 23:59:59 CLS Outpatient JEET MONROY MD [facility] LAB ROUTINE LABS [id number] 04/02/2019 08:20:00 23:59:59 CLS Outpatient JEET MONROY MD [facility] WOUNDCARE [id number] 03/23/2019 14:00:00 23:59:59 CLS Outpatient JEET MONROY MD [facility] WOUNDCARE [id number] 03/10/2019 08:53:00 23:59:59 CLS Outpatient JEET MONROY MD [facility] WOUNDCARE [id number] 02/15/2019 13:01:00 23:59:59 CLS Outpatient JEET MONROY MD [facility] WOUNDCARE [id number] 01/27/2019 08:17:00 23:59:59 CLS Outpatient JEET MONROY MD [facility] WOUNDCARE [id number] 01/26/2019 08:30:00 12:00:00 DIS Outpatient JEET MONROY MD [facility] WOUNDCARE [id number] 01/20/2019 08:11:00 23:59:59 CLS Outpatient JEET MONROY MD [facility] WOUNDCARE [id number] 01/15/2019 08:01:00 23:59:59 CLS Outpatient JEET MONROY MD [facility] WOUNDCARE [id number] 01/04/2019 08:06:00 23:59:59 CLS Outpatient JEET MONROY MD [facility] WOUNDCARE [id number] 12/30/2018 09:29:00 23:59:59 CLS Outpatient JEET MONROY MD [facility] WOUNDCARE [id number] 12/23/2018 12:36:00 23:59:59 CLS Outpatient SARITA AYALA APRN [facility] WOUNDCARE [id number] 12/11/2018 08:15:00 23:59:59 CLS Outpatient JEET MONROY MD [facility] WOUNDCARE [id number] 11/27/2018 08:09:00 23:59:59 CLS Outpatient JEET MONROY MD [facility] WOUNDCARE [id number] 11/13/2018 08:08:00 23:59:59 CLS Outpatient JEET MONROY MD [facility] WOUNDCARE [id number] 2018 08:12:00 23:59:59 CLS Outpatient JEET MONROY MD [facility] WOUNDCARE [id number] 10/30/2018 08:21:00 23:59:59 CLS Outpatient JEET MONROY MD [facility] WOUNDCARE [id number] 10/23/2018 08:16:00 23:59:59 CLS Outpatient JEET MONROY MD [facility] WOUNDCARE [id number] 10/17/2018 23:49:00 02:16:00 DIS Emergency KIRT JAMES MD [facility] ER FEEDING TUBE CAME OUT [id number] 10/16/2018 08:10:00 23:59:59 CLS Outpatient JEET MONROY MD [facility] WOUNDCARE [id number] 09/28/2018 11:19:00 23:59:59 CLS Outpatient JEET MONROY MD [facility] LAB NON PRESSURE CHRONIC UL CER [id number] 09/28/2018 09:06:00 23:59:59 CLS Outpatient JEET MONROY MD [facility] WOUNDCARE [id number] 07/07/2015 13:40:00 14:53:00 DIS Inpatient GISELLA TREADWELL MD [facility] IRF REHAB
--- NOTE | 2019-12-14 15:06 | ED Back Pain ---
General Stated Complaint: NECK/BACK PAIN Source of Information: Patient, Old Records, RN/MD Exam Limitations: No Limitations History of Present Illness Date Seen by Provider: Dec 14, 2019 Time Seen by Provider: 15:03 Initial Comments This patient is a 69-year-old female presents to the emerge department complaining of neck and upper back pain. Patient had a fall 2 weeks ago and had imaging was diagnosed with fractured rib. Patient has long history of chronic back issues with compression fractures in the T-spine has had back surgery on the L-spine with effusion. Patient states she is out of her hydrocodone. Patient tried to go see her family doctor and they recommended the patient come to the emergency department for x-rays of her spine. Patient request x-rays. I did discuss at length with patient about her chronic pain medication. Advised the patient I would not be really feeling any of her narcotic pain medication hydrocodone. Would offer her nostril pain medicine if needed to discharge. Patient states understanding. She will follow up with her primary care physician for refill of her chronic pain medications. Timing/Duration: 1 Week (2 weeks.) Severity: Mild Pain/Injury Location: Back Method of Injury: Other (chronic pain but had suffered a fall 2 weeks ago.) Modifying Factors: Worse With Cold Therapy, Worse With Immobilization, Worse With Jarring, Worse With Movement, Worse With Pain Medication, Worse With Rest, Worse With Other Associated Symptoms: No denies symptoms, No muscle spasms, No fever, No weakness, No numbness in legs/feet, No tingling in legs/feet, No sensory/motor loss, No lower back pain, No loss of bladder control, No loss of bowel control, No other Allergies and Home Medications Allergies Coded Allergies: diphenhydramine (Verified Allergy, Intermediate, MUSCLE PAIN; AGITATION, 06/09/19) promethazine (Verified Allergy, Mild, AGITATION, 06/09/19) Home Medications Biotin 10,000 Mcg Capsule, 10,000 MCG PO DAILY, (Reported) Calcium Citrate/Vitamin D3 1 Each Tablet, 2 TAB.CHEW PO TIDWM, (Reported) 500MG/400 UNITS Carvedilol 3.125 Mg Tablet, 3.125 MG PO BID, (Reported) HOLD FOR HR <55 BPM OR SBP<95 Cholecalciferol (Vitamin D3) 5,000 Unit Capsule, 5,000 UNIT PO DAILY, (Reported) Cyanocobalamin (Vitamin B-12) 500 Mcg Tablet, 500 MCG PO DAILY, (Reported) Duloxetine HCl 60 Mg Capsule.dr, 60 MG PO DAILY, (Reported) Ergocalciferol (Vitamin D2) 50,000 Unit Capsule, 50,000 UNIT PO WEEK, (Reported) Ferrous Sulfate 325 Mg Tablet, 325 MG PO DAILY, (Reported) Gabapentin 300 Mg Capsule, 300 MG PO QID, (Reported) Hydrocodone/Acetaminophen 1 Each Tablet, 1 TAB PO Q6H Prescribed by: JAIRO TORRES on 07/29/191627 Immune Globulin,Gamma(IgG) 1 Gm/5 Ml Vial, SC UD, (Reported) Lipase/Protease/Amylase 1 Each Capsule.dr, 3 CAP PO TIDWM, (Reported) Lipase/Protease/Amylase 1 Each Capsule.dr, 2 CAP PO WITH SNACKS, (Reported) Meloxicam 15 Mg Tablet, 15 MG PO DAILY, (Reported) Multivitamin 1 Each Tablet, 2 TAB PO DAILY, (Reported) Omeprazole 40 Mg Capsule.dr, 40 MG PO DAILY, (Reported) Polyethylene Glycol 3350 17 Gm Powd.pack, 17 GM PO DAILY, (Reported) Pravastatin Sodium 10 Mg Tablet, 10 MG PO HS, (Reported) Prednisone 20 Mg Tab, 40 MG PO DAILY@0700 Prescribed by: JESSE PHILLIPS on 06/16/191627 Pyridostigmine [place] 60 Mg Tab, 60 MG PO TID, (Reported) Pyridoxine HCl 100 Mg Tablet, 100 MG PO DAILY, (Reported) Ropinirole HCl 0.5 Mg Tablet, 0.5 MG PO HS, (Reported) Sennosides/Docusate Sodium 1 Each Tablet, 1 TAB PO BID, (Reported) Spironolactone 25 Mg Tablet, 25 MG PO DAILY, (Reported) Temazepam 30 Mg Capsule, 30 MG PO HS PRN for SLEEP, (Reported) Tramadol HCl 50 Mg Tablet, 50-100 MG PO BID PRN for PAIN-MODERATE, (Reported) Vitamin A Palmitate 10,000 Unit Capsule, 10,000 UNIT PO DAILY, (Reported) Patient Home Medication List Home Medication List Reviewed: Yes Review of Systems Constitutional: see HPI EENTM: No see HPI, No no symptoms reported, No ear discharge, No hearing loss, No ear pain, No blurred vision, No double vision, No eye pain, No tearing, No vision loss, No dental problems, No hoarseness, No mouth pain, No mouth swelling, No epistaxis, No nose congestion, No nose pain, No throat pain, No throat swelling, No other Respiratory: No no symptoms reported, No see HPI, No cough, No dyspnea on exertion, No hemoptysis, No orthopnea, No phlegm, No short of breath, No stridor, No wheezing, No other Cardiovascular: No no symptoms reported, No see HPI, No chest pain, No edema, No Hx of Intervention, No palpitations, No syncope, No vascular heart diseas, No other Gastrointestinal: No RUQ, No LUQ, No RLQ, No LLQ, No no symptoms reported, No see HPI, No abdominal pain, No constipation, No diarrhea, No dysphagia, No hematemesis, No heartburn, No jaundice, No loss of appetite, No melena, No nausea, No vomiting, No other : No Musculoskeletal: No no symptoms reported; see HPI, back pain; No gout, No joint pain, No joint swelling, No muscle pain, No muscle stiffness, No muscle cramps, No muscle twitching, No muscle weakness, No neck pain, No other All Other Systems Reviewed Negative Unless Noted: Yes Past Knfphex-Whtvis-Ontwok Hx Patient Social History 2nd Hand Smoke Exposure: No Recent Foreign Travel: No Contact w/Someone Who Travel: No Recent Hopitalizations: Yes (05/28/19) Immunizations Up To Date Date of Pneumonia Vaccine: Aug 18, 2012 Date of Influenza Vaccine: Jul 06, 2015 Seasonal Allergies Seasonal Allergies: No Past Medical History Surgeries: Yes (ORIF left hip, right shoulder sx, cholecystectomy, spleenectomy) Respiratory: Yes Pneumonia Currently Using CPAP: No Currently Using BIPAP: No Cardiac: Yes Neurological: Yes (MYASTHENIA GRAVIS) Reproductive Disorders: No Female Reproductive Disorders: Denies Sexually Transmitted Disease: No HIV/AIDS: No Genitourinary: No Gastrointestinal: Yes (GASTRITIS, MALNUTRITION, GASTRIC BYPASS, STOMACH STAPLING) Pancreatitis, Chronic Diarrhea Musculoskeletal: Yes Osteoporosis, Fractures Endocrine: No HEENT: Yes Tonsilitis Loss of Vision: Denies Hearing Impairment: Denies Cancer: No Psychosocial: Yes Anxiety Integumentary: No Blood Disorders: No Adverse Reaction/Blood Tranf: No Family Medical History Diabetes mellitus 19 MOTHER FH: lung cancer 19 FATHER No Pertinent Family Hx Physical Exam Vital Signs Capillary Refill : Height, Weight, BMI Height: 5'5.00" Weight: 113lbs. 0oz. 51.814984yj; 20.00 BMI Method:Stated General Appearance: No Apparent Distress, WD/WN HEENT: PERRL/EOMI, TMs Normal, Normal ENT Inspection, Pharynx Normal Neck: Full Range of Motion, Normal Inspection, Non Tender, Supple Cardiovascular: Regular Rate, Rhythm, No Edema, No Gallop, No JVD, No Murmur, Normal Peripheral Pulses Respiratory: Chest Non Tender, Lungs Clear, Normal Breath Sounds, No Accessory Muscle Use, No Respiratory Distress, Accessory Muscle Use Gastrointestinal: Normal Bowel Sounds, No Organomegaly, No Pulsatile Mass, Non Tender, Soft Back: Normal Inspection, No CVA Tenderness, No Vertebral Tenderness, Other Extremity: Normal Capillary Refill, Normal Inspection, Normal Range of Motion, Non Tender, No Calf Tenderness, No Pedal Edema Neurologic/Psychiatric: Alert, Oriented x3, No Motor/Sensory Deficits, Normal Mood/Affect, 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 Chronic degenerative changes and compression fracture T6 chronic changes lumbar spine and degenerative changes throughout the cervical spine. These are chronic in nature does not appear to be anything acute. We will write the patient discretion for diclofenac. Patient is encouraged follow-up with primary care physician for refills of her hydrocodone. Patient might benefit from an outpatient MRI. Patient is discharged home. Encourage by mouth fluids. Alternate heat and I ice as needed for back pain. Continue all home medications. Follow-up with your PCP for any refills of your narcotic pain medication. Take prescriptions as prescribed if needed. Departure Impression Primary Impression: Back pain Additional Impression: DJD (degenerative joint disease), multiple sites Disposition: 01 HOME, SELF-CARE Condition: Stable Departure-Patient Inst. Decision time for Depature: 15:57 Referrals: SELFHAILEY MD (PCP/Family) Primary Care Physician Patient Instructions: Upper Back Pain (DC) Add. Discharge Instructions: Encourage by mouth fluids. Alternate heat and I ice as needed for back pain. Continue all home medications. Follow-up with your PCP for any refills of your narcotic pain medication. Take prescriptions as prescribed if needed.Encourage by mouth fluids. Alternate heat and I ice as needed for back pain. Continue all home medications. Follow-up with your PCP for any refills of your narcotic pain medication. Take prescriptions as prescribed if needed. Scripts Diclofenac Sodium (Diclofenac Sodium) 75 Mg Tablet. 75 MG PO BID for 10 Days, #20 TAB 0 Refills Prov: ALCON QUINTERO MD 12/14/19 ALCON QUINTERO MD Dec 14, 2019 15:06
--- NOTE | 2019-12-14 15:35 | Diagnostic Imaging Report ---
INDICATION: Neck pain. Fell one week ago. COMPARISON: Thoracic spine radiographs performed concurrently. TECHNIQUE: Three views of the cervical spine were obtained. FINDINGS: Advanced degenerative changes are present at C3-C4, C4-C5, and C5-C6. Associated degenerative osseous proliferation limits assessment of the cervical spine in this region. No traumatic subluxation is present. No prevertebral soft tissue swelling. The lateral masses of C1 and C2 are in normal alignment. No features of odontoid fracture. IMPRESSION: Advanced degenerative changes in the cervical spine mildly limit assessment for features of traumatic injury. Allowing for this, no radiographic features of fracture or malalignment in the cervical spine. Dictated by: Dictated on workstation # [id number]
--- NOTE | 2019-12-14 15:36 | Diagnostic Imaging Report ---
INDICATION: Back pain. TECHNIQUE: AP and lateral views of the lumbar spine were obtained. FINDINGS: The patient has had previous laminectomy and posterior fusion at L5-S1. The hardware appears in good alignment. There is loss of height of L3 of mild severity. There is disc space narrowing at L3-L4. There is retrolisthesis of L2 on L3 by about 6 mm. There is disc space narrowing at L2-L3. There is loss of height of L2 with about 30-40% loss of height. There is loss of height of L1 with about 30% loss of height. These compression deformities are of uncertain age. IMPRESSION: Status post laminectomy and fusion at L5-S1 with anatomic alignment. There is some retrolisthesis of L2 on L3. There is disc space narrowing of L3-L4 and L2-L3. There is loss of height of L1, L2, and L3 of uncertain age. If there is focal pain in this area, consider MRI to determinate if any of these compression deformities are acute. Dictated by: Dictated on workstation # [id number]
--- NOTE | 2019-12-14 15:48 | Diagnostic Imaging Report ---
INDICATION: One week post fall with continued pain. TECHNIQUE: AP, Lateral, and Swimmers imaging of the thoracic spine CORRELATION STUDY: 10/12/2019. FINDINGS: There is moderate compression deformity with anterior wedging at the T6 vertebral body. This appears generally stable. Slightly accentuated thoracic kyphosis. Remaining thoracic vertebral body heights are preserved. Mild thoracic spondylosis with various degrees of disc space narrowing. Advanced degenerative change visualized of the lower cervical spine. Mild rightward curvature of the mid thoracic spine. IMPRESSION: Unchanged moderate anterior wedging with loss of height of the T6 vertebral body appearing generally stable. No new bony abnormality or significant change from prior study. Dictated by: Dictated on workstation # [id number]
[2019-12-14] MEDS ORDERED: DICL75TA2 PO (15:58)
[2019-12-14 16:01] VITALS: BP 99/55
== END 2019-12-14 16:01 | disposition home or self-care (01) ==
LOC: EDUNIT# 14:13 → ER FS 14:15
DX: M54.6 Pain in thoracic spine (principal); M15.9 Polyosteoarthritis, unspecified; G70.00 Myasthenia gravis without (acute) exacerbation; M81.0 Age-related osteoporosis without current pathological fracture; F41.9 Anxiety disorder, unspecified; Z88.8 Allergy status to other drugs, medicaments and biological substances; Z80.1 Family history of malignant neoplasm of trachea, bronchus and lung
CPT/HCPCS: 72040; 72072; 72100

== ENCOUNTER → 2019-12-29 | Outpatient (CLI) | payer MEDICARE, OTHER ==
[~2019-12-29] MED LIST changes: +DICL75TA2 PO; +HYDR25SU28 RC
--- NOTE | 2019-12-29 15:28 | Diagnostic Imaging Report ---
PROCEDURE: MRI lumbar spine. TECHNIQUE: Multiplanar, multisequence MRI of the lumbar spine was performed without contrast. INDICATION: Low back pain. Prior lumbar surgeries. COMPARISON: Radiographs from 12/14/2019. FINDINGS: There is posterior fusion of L5-S1 with bilateral pedicle screws and posterior fusion rods. This causes artifact of the surrounding anatomy. There is mild left convex curvature of the lumbar spine centered at L2. There is minimal retrolisthesis at L2-L3 and grade 1 anterolisthesis at L5-S1. There is a compression fracture of the L1 vertebral body with approximately 50% height loss, and associated bone marrow edema. There is no retropulsion seen. There is tkzilobz-we-pgkrvm height loss of L2 which is chronic, and there is also mild height loss of L3, which also appears to be chronic. Schmorl's nodes are seen throughout the lumbar spine. There is multilevel disc height loss throughout the lumbar spine. Degenerative changes are most severe at L5-S1, L3-L4, and L2-L3. The conus terminates in appropriate position. The soft tissues about the lumbar spine demonstrate no acute abnormality. T11-T12: Diffuse disc bulge with moderate spinal canal stenosis and mild flattening of the anterior cord with no cord signal changes. There is mild bilateral foraminal narrowing. T12-L1: Mild diffuse disc bulge and facet arthropathy. No spinal canal stenosis. No foraminal stenosis. L1-L2: Diffuse disc bulge and facet arthropathy. Moderate spinal canal stenosis. No foraminal stenosis. L2-L3: Retrolisthesis and diffuse disc bulge. Facet arthropathy and ligamentous infolding. Mild spinal canal narrowing with marked effacement of the lateral recesses bilaterally. Severe right and xgrufxwi-iy-tumllz left foraminal stenosis. L3-L4: Diffuse disc bulge with facet arthropathy and marked ligamentous infolding. This results in rruokijh-dc-obesml spinal canal stenosis. There is marked effacement of the lateral recesses, with possible compression of the L4 nerve roots. There is severe left and upvwvzwh-ov-tjrasi right foraminal stenosis. L4-L5: Diffuse disc bulge and facet arthropathy. No spinal canal stenosis. Mild bilateral foraminal narrowing. L5-S1: Anterolisthesis. No spinal canal stenosis. Suboptimal evaluation of the foramina due to artifact, however there does appear to be bilateral foraminal stenosis. IMPRESSION: 1. Acute compression fracture of L1 with approximately 50% height loss. No retropulsion is seen. 2. Severe multilevel degenerative changes in the lumbar spine with multilevel spinal canal and foraminal stenosis, as described above. 3. Spinal canal stenosis is most pronounced at L3-L4. Foraminal stenosis is most severe at L2-L3 and L3-L4. Dictated by: Dictated on workstation # [id number]
== END ==
LOC: RAD 14:24
PROVIDERS: ATTEND Physical Medicine & Rehabilitation
DX: M48.56XA Collapsed vertebra, not elsewhere classified, lumbar region, initial encounter for fracture (principal); M47.26 Other spondylosis with radiculopathy, lumbar region; M48.061 Spinal stenosis, lumbar region without neurogenic claudication; Z98.1 Arthrodesis status
CPT/HCPCS: 72148

== ENCOUNTER 2019-12-30 18:33 | Emergency (ER) | payer MEDICARE, OTHER ==
[~2019-12-30] VITALS: Ht 165.1 cm; Wt 50.0 kg
[~2019-12-30 18:33] MED LIST changes: -HYDR25SU28 RC
--- NOTE | 2019-12-30 18:50 | ED General ---
General Stated Complaint: RECTAL BLEEDING Source of Information: Patient, Old Records, RN/MD, RN Notes Reviewed History of Present Illness Date Seen by Provider: December 30, 2019 Time Seen by Provider: 18:40 Initial Comments This patient presents to the emergency department with complaint of painless rectal bleeding when having a bowel movement. She was wiping. Visual Inspector self. Patient states she's never had any issues like this before and has regular call Dr. Sanchez. Yearly M always been normal. On exam patient does have appears a bleeding hemorrhoid externally. Bleeding is controlled at this time. We'll do medical evaluation treatment is needed Timing/Duration: 1 Hour Severity: Mild Associated Systoms: Denies Symptoms; No Chest Pain, No Cough, No Diaphoresis, No Fever/Chills, No Headaches, No Loss of Appetite, No Malaise, No Nausea/Vomiting, No Rash, No Seizure, No Shortness of Air, No Syncope, No Weakness, No Other Allergies and Home Medications Allergies Coded Allergies: diphenhydramine (Verified Allergy, Intermediate, MUSCLE PAIN; AGITATION, 06/09/19) promethazine (Verified Allergy, Mild, AGITATION, 06/09/19) Home Medications Biotin 10,000 Mcg Capsule, 10,000 MCG PO DAILY, (Reported) Calcium Citrate/Vitamin D3 1 Each Tablet, 2 TAB.CHEW PO TIDWM, (Reported) 500MG/400 UNITS Carvedilol 3.125 Mg Tablet, 3.125 MG PO BID, (Reported) HOLD FOR HR <55 BPM OR SBP<95 Cholecalciferol (Vitamin D3) 5,000 Unit Capsule, 5,000 UNIT PO DAILY, (Reported) Cyanocobalamin (Vitamin B-12) 500 Mcg Tablet, 500 MCG PO DAILY, (Reported) Diclofenac Sodium 75 Mg Tablet.dr, 75 MG PO BID Prescribed by: ALCON QUINTERO on 12/14/19 1558 Duloxetine HCl 60 Mg Capsule.dr, 60 MG PO DAILY, (Reported) Ergocalciferol (Vitamin D2) 50,000 Unit Capsule, 50,000 UNIT PO WEEK, (Reported) Ferrous Sulfate 325 Mg Tablet, 325 MG PO DAILY, (Reported) Gabapentin 300 Mg Capsule, 300 MG PO QID, (Reported) Hydrocodone/Acetaminophen 1 Each Tablet, 1 TAB PO Q6H Prescribed by: JAIRO TORRES on 07/29/19 1628 Immune Globulin,Gamma(IgG) 1 Gm/5 Ml Vial, SC UD, (Reported) Lipase/Protease/Amylase 1 Each Capsule.dr, 3 CAP PO TIDWM, (Reported) Lipase/Protease/Amylase 1 Each Capsule.dr, 2 CAP PO WITH SNACKS, (Reported) Meloxicam 15 Mg Tablet, 15 MG PO DAILY, (Reported) Multivitamin 1 Each Tablet, 2 TAB PO DAILY, (Reported) Omeprazole 40 Mg Capsule.dr, 40 MG PO DAILY, (Reported) Polyethylene Glycol 3350 17 Gm Powd.pack, 17 GM PO DAILY, (Reported) Pravastatin Sodium 10 Mg Tablet, 10 MG PO HS, (Reported) Prednisone 20 Mg Tab, 40 MG PO DAILY@0700 Prescribed by: JESSE PHILLIPS on 06/16/19 1628 Pyridostigmine [place] 60 Mg Tab, 60 MG PO TID, (Reported) Pyridoxine HCl 100 Mg Tablet, 100 MG PO DAILY, (Reported) Ropinirole HCl 0.5 Mg Tablet, 0.5 MG PO HS, (Reported) Sennosides/Docusate Sodium 1 Each Tablet, 1 TAB PO BID, (Reported) Spironolactone 25 Mg Tablet, 25 MG PO DAILY, (Reported) Temazepam 30 Mg Capsule, 30 MG PO HS PRN for SLEEP, (Reported) Tramadol HCl 50 Mg Tablet, 50-100 MG PO BID PRN for PAIN-MODERATE, (Reported) Vitamin A Palmitate 10,000 Unit Capsule, 10,000 UNIT PO DAILY, (Reported) Patient Home Medication List Home Medication List Reviewed: Yes Review of Systems Review of Systems Constitutional: No no symptoms reported; see HPI; No chills, No diaphoresis, No dizziness, No fever, No malaise, No weakness, No weight gain, No weight loss, No other EENTM: No see HPI, No no symptoms reported, No ear discharge, No hearing loss, No ear pain, No blurred vision, No double vision, No eye pain, No tearing, No vision loss, No dental problems, No hoarseness, No mouth pain, No mouth swelling, No epistaxis, No nose congestion, No nose pain, No throat pain, No throat swelling, No other Respiratory: No no symptoms reported, No see HPI, No cough, No dyspnea on exertion, No hemoptysis, No orthopnea, No phlegm, No short of breath, No stridor, No wheezing, No other Cardiovascular: No no symptoms reported, No see HPI, No chest pain, No edema, No Hx of Intervention, No palpitations, No syncope, No vascular heart diseas, No other Gastrointestinal: see HPI, melena, other Genitourinary: No no symptoms reported, No see HPI, No decreased output, No discharge, No dysuria, No frequency, No hematuria, No hesitancy, No incontinence, No nocturia, No pain, No other Musculoskeletal: No no symptoms reported, No see HPI, No back pain, No gout, No joint pain, No joint swelling, No muscle pain, No muscle stiffness, No muscle cramps, No muscle twitching, No muscle weakness, No neck pain, No other Skin: No no symptoms reported, No see HPI, No change in color, No change in hair/nails, No dryness, No hx of skin cancer, No lesions, No lumps, No pruritus, No rash, No other All Other Systems Reviewed Negative Unless Noted: Yes Past [id number]-Tehqwb Hx Patient Social History 2nd Hand Smoke Exposure: No Recent Foreign Travel: No Contact w/Someone Who Travel: No Recent Hopitalizations: Yes (05/28/19) Immunizations Up To Date Date of Pneumonia Vaccine: Aug 18, 2012 Date of Influenza Vaccine: Jul 06, 2015 Seasonal Allergies Seasonal Allergies: No Past Medical History Surgeries: Yes (ORIF left hip, right shoulder sx, cholecystectomy, spleenectomy) Respiratory: Yes Pneumonia Currently Using CPAP: No Currently Using BIPAP: No Cardiac: Yes Neurological: Yes (MYASTHENIA GRAVIS) Reproductive Disorders: No Female Reproductive Disorders: Denies Sexually Transmitted Disease: No HIV/AIDS: No Genitourinary: No Gastrointestinal: Yes (GASTRITIS, MALNUTRITION, GASTRIC BYPASS, STOMACH STAPLING) Pancreatitis, Chronic Diarrhea Musculoskeletal: Yes Osteoporosis, Fractures Endocrine: No HEENT: Yes Tonsilitis Loss of Vision: Denies Hearing Impairment: Denies Cancer: No Psychosocial: Yes Anxiety Integumentary: No Blood Disorders: No Adverse Reaction/Blood Tranf: No Family Medical History Diabetes mellitus 19 MOTHER FH: lung cancer 19 FATHER No Pertinent Family Hx Physical Exam Vital Signs Vital Signs - First Documented 12/30/19 18:40 Temp 36.6 Pulse 62 Resp 20 B/P (MAP) 112/44 (66) Pulse Ox 96 O2 Delivery Room Air Capillary Refill : Height, Weight, BMI Height: 5'5.00" Weight: 113lbs. 0oz. 51.317005dl; 18.00 BMI Method:Stated General Appearance: No Apparent Distress, WD/WN HEENT: PERRL/EOMI, TMs Normal, Normal ENT Inspection, Pharynx Normal Neck: Full Range of Motion, Normal Inspection, Non Tender, Supple Respiratory: Chest Non Tender, Lungs Clear, Normal Breath Sounds, No Accessory Muscle Use, No Respiratory Distress Cardiovascular: Regular Rate, Rhythm, No Edema, No Gallop, No JVD, No Murmur, Normal Peripheral Pulses Gastrointestinal: Normal Bowel Sounds, No Organomegaly, No Pulsatile Mass, Non Tender, Soft Rectal: Hemorrhoids (appears to have a hemorrhoid that has been bleeding.) Back: Normal Inspection, No CVA Tenderness, No Vertebral Tenderness Extremity: Normal Capillary Refill, Normal Inspection, Normal Range of Motion, Non Tender, No Calf Tenderness, No Pedal Edema Neurologic/Psychiatric: Alert, Oriented x3, No Motor/Sensory Deficits, Normal Mood/Affect Skin: Normal Color, Warm/Dry Progress/Results/Core Measures Suspected Sepsis SIRS Temperature: Pulse: Respiratory Rate: Laboratory Tests 12/30/19 19:05: White Blood Count 9.2 Blood Pressure / Mean: Laboratory Tests 12/30/19 19:05: Platelet Count 282 Results/Orders Lab Results Laboratory Tests Test 12/30/19 19:05 Range/Units White Blood Count 9.2 4.3-11.0 10^3/uL Red Blood Count 3.39 L 4.35-5.85 10^6/uL Hemoglobin 11.0 L 11.5-16.0 G/DL Hematocrit 35 35-52 % Mean Corpuscular Volume 102 H 80-99 FL Mean Corpuscular Hemoglobin 32 25-34 PG Mean Corpuscular Hemoglobin Concent 32 32-36 G/DL Red Cell Distribution Width 14.1 10.0-14.5 % Platelet Count 282 130-400 10^3/uL Mean Platelet Volume 10.7 H 7.4-10.4 FL Neutrophils (%) (Auto) 79 H 42-75 % Lymphocytes (%) (Auto) 14 12-44 % Monocytes (%) (Auto) 5 0-12 % Eosinophils (%) (Auto) 1 0-10 % Basophils (%) (Auto) 1 0-10 % Neutrophils # (Auto) 7.2 1.8-7.8 X 10^3 Lymphocytes # (Auto) 1.3 1.0-4.0 X 10^3 Monocytes # (Auto) 0.5 0.0-1.0 X 10^3 Eosinophils # (Auto) 0.1 0.0-0.3 10^3/uL Basophils # (Auto) 0.1 0.0-0.1 10^3/uL My Orders Orders - ALCON QUINTERO MD Comprehensive Metabolic Panel (12/30/19 18:47) Cbc With Automated Diff (12/30/19 18:47) Protime With Inr (12/30/19 18:47) Vital Signs/I&O 12/30/19 18:40 Temp 36.6 Pulse 62 Resp 20 B/P (MAP) 112/44 (66) Pulse Ox 96 O2 Delivery Room Air Capillary Refill : Progress Note : Time: 19:23 Progress Note Patient is stable. H&H is stable anemia. Appears to have a bleeding external hemorrhoid. It is resolved. We'll place the patient on Anusol HC. Patient instructed to follow up with her PCP in 2-3 days. May use an [id number] sitz bath to help with using the restroom to keep herself area clean. Departure Impression Primary Impression: Hemorrhoids Disposition: 01 HOME, SELF-CARE Condition: Stable Departure-Patient Inst. Decision time for Depature: 19:24 Referrals: HAILEY STANLEY MD (PCP/Family) Primary Care Physician Patient Instructions: Hemorrhoids (DC) Add. Discharge Instructions: We'll place the patient on Anusol HC. Patient instructed to follow up with her PCP in 2-3 days. May use an [id number] sitz bath to help with using the restroom to keep herself area clean. Scripts Hydrocortisone Acetate (Anusol-Hc) 25 Mg Supp.rect 25 MG RC BID for 7 Days, SUPP.RECT 0 Refills Prov: ALCON QUINTERO MD 12/30/19 ALCON QUINTERO MD December 30, 2019 18:49
[2019-12-30 19:17] LABS: BASOPHILS # (AUTO) 0.1 10^3/uL (0.0-0.1); BASOPHILS % (AUTO) 1 % (0-10); EOSINOPHILS # (AUTO) 0.1 10^3/uL (0.0-0.3); EOSINOPHILS % (AUTO) 1 % (0-10); HEMATOCRIT 35 % (35-52); LYMPHOCYTES # (AUTO) 1.3 X 10^3 (1.0-4.0); LYMPHOCYTES % (AUTO) 14 % (12-44); MEAN CORPUSCULAR HEMOGLOBIN 32 PG (25-34); MEAN CORPUSCULAR HGB CONC 32 G/DL (32-36); MEAN CORPUSCULAR VOLUME 102 FL (80-99); MEAN PLATELET VOLUME 10.7 FL (7.4-10.4); MONOCYTES # (AUTO) 0.5 X 10^3 (0.0-1.0); MONOCYTES % (AUTO) 5 % (0-12); NEUTROPHILS # (AUTO) 7.2 X 10^3 (1.8-7.8); NEUTROPHILS % (AUTO) 79 % (42-75); PLATELET COUNT 282 10^3/uL (130-400); RED CELL DISTRIBUTION WIDTH 14.1 % (10.0-14.5); WHITE BLOOD COUNT 9.2 10^3/uL (4.3-11.0)
--- NOTE | 2019-12-30 19:20 | NUR ---
Pt report to Rosy SANTIAGO.
[2019-12-30 19:24] LABS: PROTHROMBIN TIME PATIENT 13.3 SEC (12.2-14.7)
[2019-12-30] MEDS ORDERED: HYDR25SU28 RC (19:26)
[2019-12-30 19:29] VITALS: BP 112/44
[2019-12-30 19:38] LABS: POTASSIUM 5.4 MMOL/L (3.6-5.0)
[2019-12-30 19:39] LABS: ALBUMIN 2.6 GM/DL (3.2-4.5); BILIRUBIN,TOTAL 0.3 MG/DL (0.1-1.0); CALCIUM 8.3 MG/DL (8.5-10.1); CREATININE SERUM 1.14 MG/DL (0.60-1.30); TOTAL PROTEIN 6.3 GM/DL (6.4-8.2)
== END 2019-12-30 19:29 | disposition home or self-care (01) ==
LOC: EDUNIT# 18:33 → ER FS 18:35
DX: K64.9 Unspecified hemorrhoids (principal); F41.9 Anxiety disorder, unspecified; Z88.8 Allergy status to other drugs, medicaments and biological substances; Z79.52 Long term (current) use of systemic steroids; Z80.1 Family history of malignant neoplasm of trachea, bronchus and lung; Z11.59 Encounter for screening for other viral diseases
CPT/HCPCS: 36415; 80053; 82274; 85025; 85610

== ENCOUNTER 2020-02-27 14:55 | Emergency (ER) | payer MEDICARE, OTHER ==
[~2020-02-27 14:55] MED LIST changes: +HYDR25SU28 RC; +MULT-567 PO; -MULT1TAB69 PO
[2020-02-27] MEDS ORDERED: LIDOCAINE 1% INJ 20 ML 20 ML VIAL ONE (15:00)
[2020-02-27] MEDS ORDERED: TETANUS & DIPHTHERIA TOX,ADULT 0.5 ML (TENIVAC) IM ONE (15:45)
--- NOTE | 2020-02-27 15:54 | ED Lower Extremity ---
General Chief Complaint: Laceration Stated Complaint: FALL History of Present Illness Date Seen by Provider: Feb 27, 2020 Time Seen by Provider: 15:52 Initial Comments Pt present with laceration to right lower leg. She cut it on the pedal of a kids toy. She takes prednisone chronically for myasthenia gravis so her skin cut and tears easily. Allergies and Home Medications Allergies Coded Allergies: diphenhydramine (Verified Allergy, Intermediate, MUSCLE PAIN; AGITATION, 06/09/19) promethazine (Verified Allergy, Mild, AGITATION, 06/09/19) Home Medications Biotin 10,000 Mcg Capsule, 10,000 MCG PO DAILY, (Reported) Calcium Citrate/Vitamin D3 1 Each Tablet, 2 TAB.CHEW PO TIDWM, (Reported) 500MG/400 UNITS Carvedilol 3.125 Mg Tablet, 3.125 MG PO BID, (Reported) HOLD FOR HR <55 BPM OR SBP<95 Cholecalciferol (Vitamin D3) 5,000 Unit Capsule, 5,000 UNIT PO DAILY, (Reported) Cyanocobalamin (Vitamin B-12) 500 Mcg Tablet, 500 MCG PO DAILY, (Reported) Diclofenac Sodium 75 Mg Tablet.dr, 75 MG PO BID Prescribed by: ALCON QUINTERO on 12/14/19 1558 Duloxetine HCl 60 Mg Capsule.dr, 60 MG PO DAILY, (Reported) Ergocalciferol (Vitamin D2) 50,000 Unit Capsule, 50,000 UNIT PO WEEK, (Reported) Ferrous Sulfate 325 Mg Tablet, 325 MG PO DAILY, (Reported) Gabapentin 300 Mg Capsule, 300 MG PO QID, (Reported) Hydrocodone/Acetaminophen 1 Each Tablet, 1 TAB PO Q6H Prescribed by: JAIRO TORRES on 07/29/19 1628 Hydrocortisone Acetate 25 Mg Supp.rect, 25 MG RC BID Prescribed by: ALCON QUINTERO on 12/30/19 1926 Immune Globulin,Gamma(IgG) 1 Gm/5 Ml Vial, SC UD, (Reported) Lipase/Protease/Amylase 1 Each Capsule.dr, 3 CAP PO TIDWM, (Reported) Lipase/Protease/Amylase 1 Each Capsule.dr, 2 CAP PO WITH SNACKS, (Reported) Meloxicam 15 Mg Tablet, 15 MG PO DAILY, (Reported) Multivitamin 1 Each Tablet, 2 TAB PO DAILY, (Reported) Omeprazole 40 Mg Capsule.dr, 40 MG PO DAILY, (Reported) Polyethylene Glycol 3350 17 Gm Powd.pack, 17 GM PO DAILY, (Reported) Pravastatin Sodium 10 Mg Tablet, 10 MG PO HS, (Reported) Prednisone 20 Mg Tab, 40 MG PO DAILY@0700 Prescribed by: JESSE PHILLIPS on 06/16/19 1628 Pyridostigmine [place] 60 Mg Tab, 60 MG PO TID, (Reported) Pyridoxine HCl 100 Mg Tablet, 100 MG PO DAILY, (Reported) Ropinirole HCl 0.5 Mg Tablet, 0.5 MG PO HS, (Reported) Sennosides/Docusate Sodium 1 Each Tablet, 1 TAB PO BID, (Reported) Spironolactone 25 Mg Tablet, 25 MG PO DAILY, (Reported) Temazepam 30 Mg Capsule, 30 MG PO HS PRN for SLEEP, (Reported) Tramadol HCl 50 Mg Tablet, 50-100 MG PO BID PRN for PAIN-MODERATE, (Reported) Vitamin A Palmitate 10,000 Unit Capsule, 10,000 UNIT PO DAILY, (Reported) Patient Home Medication List Home Medication List Reviewed: Yes Review of Systems Constitutional: no symptoms reported EENTM: no symptoms reported Respiratory: no symptoms reported Cardiovascular: no symptoms reported Skin: other (Laceration) Psychiatric/Neurological: No Symptoms Reported Past Lbqnfsy-Qqtcvj-Qwaloy Hx Patient Social History Alcohol Use: Denies Use Recreational Drug Use: No Smoking Status: Never a Smoker 2nd Hand Smoke Exposure: No Recent Hopitalizations: No Immunizations Up To Date Date of Pneumonia Vaccine: Aug 18, 2012 Date of Influenza Vaccine: Jul 06, 2015 Seasonal Allergies Seasonal Allergies: No Past Medical History Surgeries: Yes (ORIF left hip, right shoulder sx, cholecystectomy, spleenectomy) Respiratory: Yes Pneumonia Currently Using CPAP: No Currently Using BIPAP: No Cardiac: Yes Neurological: Yes (MYASTHENIA GRAVIS) Reproductive Disorders: No Female Reproductive Disorders: Denies Sexually Transmitted Disease: No HIV/AIDS: No Genitourinary: No Gastrointestinal: Yes (GASTRITIS, MALNUTRITION, GASTRIC BYPASS, STOMACH STAPLING) Pancreatitis, Chronic Diarrhea Musculoskeletal: Yes Osteoporosis, Fractures Endocrine: No HEENT: Yes Tonsilitis Loss of Vision: Denies Hearing Impairment: Denies Cancer: No Psychosocial: Yes Anxiety Integumentary: No Blood Disorders: No Adverse Reaction/Blood Tranf: No Family Medical History Diabetes mellitus 19 MOTHER FH: lung cancer 19 FATHER No Pertinent Family Hx Physical Exam Vital Signs Vital Signs - First Documented 02/27/20 15:35 Temp 36.8 Pulse 93 Resp 16 B/P (MAP) 118/61 (80) Pulse Ox 95 Capillary Refill : Height, Weight, BMI Height: 5'5.00" Weight: 113lbs. 0oz. 51.570359qn; 18.00 BMI Method:Stated General Appearance: WD/WN HEENT: normal ENT inspection Respiratory: no respiratory distress Neurologic/Tendon: normal sensation, normal motor functions Neurologic/Psychiatric: alert, normal mood/affect, oriented x 3 Skin: other (8 cm laceration right lower leg with some surrounding skin tears) Procedures/Interventions Wound Location: Lower Extremities Other Wound Location Right leg Wound Length (cm): 8 Wound's Depth, Shape: into muscle, linear Wound Explored: clean Anesthesia: 1% Lidocaine Suture: Ethlion Suture Size: 4-0 Number of Sutures: 8 Sterile Dressing Applied?: Yes Progress/Results/Core Measures Results/Orders My Orders Orders - LILLI HANNON MD Lidocaine 1% Inj 20 Ml (Xylocaine 1% Inj (02/27/20 15:00) Tetanus/Diphtheria Inj (Adult) (Tenivac (02/27/20 15:45) Vital Signs/I&O 02/27/20 15:35 Temp 36.8 Pulse 93 Resp 16 B/P (MAP) 118/61 (80) Pulse Ox 95 Departure Impression Primary Impression: Laceration of leg Qualified Codes: S81.811A - Laceration without foreign body, right lower leg, initial encounter Disposition: 01 HOME, SELF-CARE Condition: Stable Departure-Patient Inst. Referrals: SELFHAILEY MD (PCP/Family) Primary Care Physician Patient Instructions: Laceration Repair With Stitches (DC) Add. Discharge Instructions: See your doctor or return for suture removal in 10-14 days. All discharge instructions reviewed with patient and/or family. Voiced understanding. LILLI HANNON MD Feb 27, 2020 15:54
[2020-02-27 16:24] VITALS: BP 130/60
== END 2020-02-27 16:25 | disposition home or self-care (01) ==
LOC: EDUNIT# 14:55 → ER FS 14:56
DX: S81.811A Laceration without foreign body, right lower leg, initial encounter (principal); G70.00 Myasthenia gravis without (acute) exacerbation; F41.9 Anxiety disorder, unspecified; Z80.1 Family history of malignant neoplasm of trachea, bronchus and lung; Z23 Encounter for immunization; Z88.8 Allergy status to other drugs, medicaments and biological substances; Z79.52 Long term (current) use of systemic steroids; W26.8XXA Contact with other sharp object(s), not elsewhere classified, initial encounter
CPT/HCPCS: 90714

== ENCOUNTER 2020-04-16 02:15 | Inpatient (IN) | payer MEDICARE, OTHER ==
[2020-04-16] VITALS (17 sets, daily range): BP systolic 93–161; BP diastolic 53–98
[~2020-04-16] VITALS: Ht 152 cm; Wt 48.3 kg
[~2020-04-16 02:15] MED LIST changes: -CALC600T12 PO; +CALC600T14 PO; +IMMU1VIA INJ; -IMMU1VIA SC
[2020-04-16] MEDS ORDERED: NALOXONE 2 MG/2 ML (NARCAN) SYR IV ONE (02:30)
[2020-04-16] MEDS ORDERED: ONDANSETRON 4 MG/2 ML (SDV) Z0FRAN IVP ONE (02:30)
[2020-04-16 02:59] LABS: BASOPHILS # (AUTO) 0.1 10^3/uL (0.0-0.1); BASOPHILS % (AUTO) 1 % (0-10); EOSINOPHILS % (AUTO) 0 % (0-10); HEMATOCRIT 34 % (35-52); HEMOGLOBIN 10.9 G/DL (11.5-16.0); LYMPHOCYTES # (AUTO) 1.9 X 10^3 (1.0-4.0); LYMPHOCYTES % (AUTO) 31 % (12-44); MEAN CORPUSCULAR HEMOGLOBIN 33 PG (25-34); MEAN CORPUSCULAR HGB CONC 32 G/DL (32-36); MEAN CORPUSCULAR VOLUME 101 FL (80-99); MEAN PLATELET VOLUME 10.4 FL (7.4-10.4); MONOCYTES # (AUTO) 0.6 X 10^3 (0.0-1.0); MONOCYTES % (AUTO) 9 % (0-12); NEUTROPHILS # (AUTO) 3.7 X 10^3 (1.8-7.8); NEUTROPHILS % (AUTO) 59 % (42-75); PLATELET COUNT 346 10^3/uL (130-400); RED CELL DISTRIBUTION WIDTH 13.5 % (10.0-14.5); WHITE BLOOD COUNT 6.2 10^3/uL (4.3-11.0)
[2020-04-16] MEDS ORDERED: LORazepam INJ 2 MG/ML (ATIVAN) VIAL IVP ONE ×3 (03:00→05:30)
[2020-04-16 03:17] LABS: ALANINE AMINOTRANSFERASE 22 U/L (0-55); ALKALINE PHOSPHATASE 130 U/L (40-136); BILIRUBIN,TOTAL 0.2 MG/DL (0.1-1.0); BUN/CREATININE RATIO 22; CALCIUM 8.4 MG/DL (8.5-10.1); CARBON DIOXIDE 26 MMOL/L (21-32); CHLORIDE 103 MMOL/L (98-107); CREATININE SERUM 1.49 MG/DL (0.60-1.30); GFR ESTIMATED 35; GLUCOSE 76 MG/DL (70-105); MAGNESIUM 2.1 MG/DL (1.6-2.4); POTASSIUM 4.6 MMOL/L (3.6-5.0); SODIUM 140 MMOL/L (135-145)
[2020-04-16 03:18] LABS: ALBUMIN 2.8 GM/DL (3.2-4.5); TOTAL PROTEIN 6.9 GM/DL (6.4-8.2)
[2020-04-16 03:43] LABS: BACTERIA,URINE FEW /HPF; BILIRUBIN,URINE NEGATIVE (NEGATIVE); CLARITY,URINE CLEAR; COLOR,URINE YELLOW; GLUCOSE, URINE (UA) NEGATIVE (NEGATIVE); KETONES,URINE NEGATIVE (NEGATIVE); LEUKOCYTE ESTERASE ,URINE NEGATIVE (NEGATIVE); NITRITE,URINE NEGATIVE (NEGATIVE); PH,URINE 5.5 (5-9); PROTEIN,URINE NEGATIVE (NEGATIVE)
[2020-04-16 03:48] LABS: BENZODIAZEPINES SCREEN URINE POSITIVE (NEGATIVE); METHAMPHETAMINE SCREEN URINE S POSITIVE (NEGATIVE)
[2020-04-16 03:49] LABS: AMPHETAMINE SCREEN, URINE NEGATIVE (NEGATIVE); BARBITURATE SCREEN URINE NEGATIVE (NEGATIVE); CANNABINOID SCREEN, URINE NEGATIVE (NEGATIVE); COCAINE SCREEN URINE NEGATIVE (NEGATIVE); METHADONE STAT NEGATIVE (NEGATIVE); OPIATE SCREEN URINE NEGATIVE (NEGATIVE); OXYCODONE STAT POSITIVE (NEGATIVE); PROPOXYPHENE STAT NEGATIVE (NEGATIVE); TRICYCLIC ANTIDEPRESSANTS SCRE NEGATIVE (NEGATIVE)
[2020-04-16] MEDS ORDERED: HALOPERIDOL 5 MG/ML (HALDOL) VIAL IM/IV ONE ×2 (04:15→05:30)
--- NOTE | 2020-04-16 05:26 | ED General ---
General Chief Complaint: Altered Mental Status Stated Complaint: UNRESPONSIVE Nursing Triage Note: Patient presents via EMS with altered mental status. EMS reports that the last known well time of the patient was 20 minutes prior to arrival. Patient is twitching and will wake up intermittently. Patient is confused. Nursing Sepsis Screen: No Definite Risk Source of Information: EMS, Family Exam Limitations: Other (mental status changes) History of Present Illness Date Seen by Provider: Apr 16, 2020 Time Seen by Provider: 03:20 Initial Comments Patient is a 69-year-old female with history of chronic pain, malnutrition secondary to remote bariatric surgery, hypertension and anxiety who presents with altered mental status. Patient's last normal was 1 hour prior to ED arrival. Patient spouse states he checked on patient, she is difficult to alert and was twitching. After waiting 20 minutes, contacted EMS. On EMS arrival, patient is agitated with incomprehensible speech moving all extremities without following commands. Blood sugars checked and was normal. Patient recently evaluated in the ED 2 weeks ago for fall with injury prescribed pain medication. Patient has temazepam, oxycodone and was recently discontinued on fentanyl patches. Patient remains agitated with flailing of extremities and confused on ED arrival was stable vital signs. History is limited patient upon the patient's clinical condition. Severity: Severe Modifying Factors: improves with Other (unknown) Allergies and Home Medications Allergies Coded Allergies: diphenhydramine (Verified Allergy, Intermediate, MUSCLE PAIN; AGITATION, 06/09/19) promethazine (Verified Allergy, Mild, AGITATION, 06/09/19) Home Medications Biotin 10,000 Mcg Capsule, 10,000 MCG PO DAILY, (Reported) Calcium Citrate/Vitamin D3 1 Each Tablet, 2 TAB.CHEW PO TIDWM, (Reported) 500MG/400 UNITS Carvedilol 3.125 Mg Tablet, 3.125 MG PO BID, (Reported) HOLD FOR HR <55 BPM OR SBP<95 Cholecalciferol (Vitamin D3) 5,000 Unit Capsule, 5,000 UNIT PO DAILY, (Reported) Cyanocobalamin (Vitamin B-12) 500 Mcg Tablet, 500 MCG PO DAILY, (Reported) Diclofenac Sodium 75 Mg Tablet.dr, 75 MG PO BID Prescribed by: ALCON QUINTERO on 12/14/19 1558 Duloxetine HCl 60 Mg Capsule.dr, 60 MG PO DAILY, (Reported) Ergocalciferol (Vitamin D2) 50,000 Unit Capsule, 50,000 UNIT PO WEEK, (Reported) Ferrous Sulfate 325 Mg Tablet, 325 MG PO DAILY, (Reported) Gabapentin 300 Mg Capsule, 300 MG PO QID, (Reported) Hydrocodone/Acetaminophen 1 Each Tablet, 1 TAB PO Q6H Prescribed by: JAIRO TORRES on 07/29/19 1628 Hydrocortisone Acetate 25 Mg Supp.rect, 25 MG RC BID Prescribed by: ALCON QUINTERO on 12/30/19 1926 Immune Globulin,Gamma(IgG) 1 Gm/5 Ml Vial, SC UD, (Reported) Lipase/Protease/Amylase 1 Each Capsule.dr, 3 CAP PO TIDWM, (Reported) Lipase/Protease/Amylase 1 Each Capsule.dr, 2 CAP PO WITH SNACKS, (Reported) Meloxicam 15 Mg Tablet, 15 MG PO DAILY, (Reported) Multivitamin 1 Each Tablet, 2 TAB PO DAILY, (Reported) Omeprazole 40 Mg Capsule.dr, 40 MG PO DAILY, (Reported) Polyethylene Glycol 3350 17 Gm Powd.pack, 17 GM PO DAILY, (Reported) Pravastatin Sodium 10 Mg Tablet, 10 MG PO HS, (Reported) Prednisone 20 Mg Tab, 40 MG PO DAILY@0700 Prescribed by: JESSE PHILLIPS on 06/16/19 1628 Pyridostigmine [place] 60 Mg Tab, 60 MG PO TID, (Reported) Pyridoxine HCl 100 Mg Tablet, 100 MG PO DAILY, (Reported) Ropinirole HCl 0.5 Mg Tablet, 0.5 MG PO HS, (Reported) Sennosides/Docusate Sodium 1 Each Tablet, 1 TAB PO BID, (Reported) Spironolactone 25 Mg Tablet, 25 MG PO DAILY, (Reported) Temazepam 30 Mg Capsule, 30 MG PO HS PRN for SLEEP, (Reported) Tramadol HCl 50 Mg Tablet, 50-100 MG PO BID PRN for PAIN-MODERATE, (Reported) Vitamin A Palmitate 10,000 Unit Capsule, 10,000 UNIT PO DAILY, (Reported) Patient Home Medication List Home Medication List Reviewed: Yes Review of Systems Review of Systems Constitutional: other (ROS unable to obtain secondary to mental status changes.) All Other Systems Reviewed Negative Unless Noted: No (unable to obtain due to mental status changes) Past Damlsvr-Mrjisp-Pwafjl Hx Past Med/Social Hx: Reviewed Nursing Past Med/Soc Hx Patient Social History 2nd Hand Smoke Exposure: No Recent Foreign Travel: No Contact w/Someone Who Travel: No Recent Infectious Disease Expo: No Recent Hopitalizations: No Immunizations Up To Date Date of Pneumonia Vaccine: Aug 18, 2012 Date of Influenza Vaccine: Jul 06, 2015 Seasonal Allergies Seasonal Allergies: No Past Medical History Surgeries: Yes (ORIF left hip, right shoulder sx, cholecystectomy, spleenectomy) Respiratory: Yes Pneumonia Currently Using CPAP: No Currently Using BIPAP: No Cardiac: Yes Neurological: Yes (MYASTHENIA GRAVIS) Reproductive Disorders: No Female Reproductive Disorders: Denies Sexually Transmitted Disease: No HIV/AIDS: No Genitourinary: No Gastrointestinal: Yes (GASTRITIS, MALNUTRITION, GASTRIC BYPASS, STOMACH STAPLING) Pancreatitis, Chronic Diarrhea Musculoskeletal: Yes (Kyphoplasty vertebrae of compression fx) Osteoporosis, Fractures Endocrine: No HEENT: Yes Tonsilitis Loss of Vision: Denies Hearing Impairment: Denies Cancer: No Psychosocial: Yes Anxiety Integumentary: No Blood Disorders: No Adverse Reaction/Blood Tranf: No Family Medical History Diabetes mellitus 19 MOTHER FH: lung cancer 19 FATHER No Pertinent Family Hx Physical Exam Vital Signs Vital Signs - First Documented 04/16/20 02:15 Temp 37.1 Pulse 90 Resp 20 B/P (MAP) 120/69 (86) Pulse Ox 95 O2 Delivery Room Air Capillary Refill : Less Than 3 Seconds Height, Weight, BMI Height: 5'5.00" Weight: 113lbs. 0oz. 51.485525ry; 19.00 BMI Method:Stated General Appearance: Thin, Other (agitated) Eyes: Bilateral Eye Normal Inspection, Bilateral Eye PERRL (PinPoint pupils), Bilateral Eye EOMI HEENT: PERRL/EOMI, Pharynx Normal, Moist Mucous Membranes Neck: Non Tender, Supple Respiratory: Lungs Clear, Normal Breath Sounds Cardiovascular: Regular Rate, Rhythm Gastrointestinal: Non Tender, Soft Back: Normal Inspection Extremity: Other (healing abrasions to right leg) Neurologic/Psychiatric: Alert, Other (agitated, confused speech, moves all extremities but does not follow commands) Focused Exam Sepsis Stage: Ruled Out Procedures/Interventions Suture Size: 4-0 Progress/Results/Core Measures Suspected Sepsis Recent Fever Within 48 Hours: No Infection Criteria Present: None New/Unexplained Altered Menta: No Sepsis Screen: No Definite Risk SIRS Temperature: Pulse: 90 Respiratory Rate: 20 Laboratory Tests 04/16/20 02:50: White Blood Count 6.2 Blood Pressure 120 /69 Mean: 86 Laboratory Tests 04/16/20 02:50: Creatinine 1.49H, Platelet Count 346, Total Bilirubin 0.2 Results/Orders Lab Results Laboratory Tests Test 04/16/20 02:50 04/16/20 03:30 Range/Units White Blood Count 6.2 4.3-11.0 10^3/uL Red Blood Count 3.33 L 4.35-5.85 10^6/uL Hemoglobin 10.9 L 11.5-16.0 G/DL Hematocrit 34 L 35-52 % Mean Corpuscular Volume 101 H 80-99 FL Mean Corpuscular Hemoglobin 33 25-34 PG Mean Corpuscular Hemoglobin Concent 32 32-36 G/DL Red Cell Distribution Width 13.5 10.0-14.5 % Platelet Count 346 130-400 10^3/uL Mean Platelet Volume 10.4 7.4-10.4 FL Neutrophils (%) (Auto) 59 42-75 % Lymphocytes (%) (Auto) 31 12-44 % Monocytes (%) (Auto) 9 0-12 % Eosinophils (%) (Auto) 0 0-10 % Basophils (%) (Auto) 1 0-10 % Neutrophils # (Auto) 3.7 1.8-7.8 X 10^3 Lymphocytes # (Auto) 1.9 1.0-4.0 X 10^3 Monocytes # (Auto) 0.6 0.0-1.0 X 10^3 Eosinophils # (Auto) 0.0 0.0-0.3 10^3/uL Basophils # (Auto) 0.1 0.0-0.1 10^3/uL Sodium Level 140 135-145 MMOL/L Potassium Level 4.6 3.6-5.0 MMOL/L Chloride Level 103 98-107 MMOL/L Carbon Dioxide Level 26 21-32 MMOL/L Anion Gap 11 5-14 MMOL/L Blood Urea Nitrogen 33 H 7-18 MG/DL Creatinine 1.49 H 0.60-1.30 MG/DL Estimat Glomerular Filtration Rate 35 BUN/Creatinine Ratio 22 Glucose Level 76 70-105 MG/DL Calcium Level 8.4 L 8.5-10.1 MG/DL Corrected Calcium 9.4 8.5-10.1 MG/DL Magnesium Level 2.1 1.6-2.4 MG/DL Total Bilirubin 0.2 0.1-1.0 MG/DL Aspartate Amino Transf (AST/SGOT) 56 H 5-34 U/L Alanine Aminotransferase (ALT/SGPT) 22 0-55 U/L Alkaline Phosphatase 130 40-136 U/L Total Protein 6.9 6.4-8.2 GM/DL Albumin 2.8 L 3.2-4.5 GM/DL Serum Alcohol < 10 <10 MG/DL Urine Color YELLOW Urine Clarity CLEAR Urine pH 5.5 5-9 Urine Specific [place] >=1.030 1.016-1.022 Urine Protein NEGATIVE NEGATIVE Urine Glucose (UA) NEGATIVE NEGATIVE Urine Ketones NEGATIVE NEGATIVE Urine Nitrite NEGATIVE NEGATIVE Urine Bilirubin NEGATIVE NEGATIVE Urine Urobilinogen 0.2 < = 1.0 MG/DL Urine Leukocyte Esterase NEGATIVE NEGATIVE Urine RBC (Auto) NEGATIVE NEGATIVE Urine RBC 2-5 H /HPF Urine WBC 5-10 H /HPF Urine Squamous Epithelial Cells NONE /HPF Urine Crystals NONE /LPF Urine Bacteria FEW H /HPF Urine Casts PRESENT /LPF Urine Hyaline Casts 10-25 H /LPF Urine Granular Casts 2-5 H /LPF Urine Mucus MODERATE H /LPF Urine Culture Indicated YES Urine Opiates Screen NEGATIVE NEGATIVE Urine Oxycodone Screen POSITIVE H NEGATIVE Urine Methadone Screen NEGATIVE NEGATIVE Urine Propoxyphene Screen NEGATIVE NEGATIVE Urine Barbiturates Screen NEGATIVE NEGATIVE Ur Tricyclic Antidepressants Screen NEGATIVE NEGATIVE Urine Phencyclidine Screen NEGATIVE NEGATIVE Urine Amphetamines Screen NEGATIVE NEGATIVE Urine Methamphetamines Screen POSITIVE H NEGATIVE Urine Benzodiazepines Screen POSITIVE H NEGATIVE Urine Cocaine Screen NEGATIVE NEGATIVE Urine Cannabinoids Screen NEGATIVE NEGATIVE My Orders Orders - BOB QUINTERO DO Ct Head Wo (04/16/20 02:17) Chest 1 View Ap/Pa Only (04/16/20 02:17) Cbc With Automated Diff (04/16/20 02:17) Comprehensive Metabolic Panel (04/16/20 02:17) Arterial Blood Gas (04/16/20 02:17) Alcohol (04/16/20 02:17) Drug Screen Stat (Urine) (04/16/20 02:17) Ua Culture If Indicated (04/16/20 02:17) Catheter(Urinary) Care .0300, 1500 (04/16/20 02:17) Magnesium (04/16/20 02:17) Ekg Tracing (04/16/20 02:17) Accucheck Fasting (04/16/20 02:17) Prolactin (04/16/20 02:17) Blood Culture (04/16/20 02:17) Naloxone Injection (Narcan Injection) (04/16/20 02:30) Ondansetron Injection (Zofran Injectio (04/16/20 02:30) Ammonia (04/16/20 02:25) Thyroid Stimulating Hormone (04/16/20 02:25) Lorazepam Injection (Ativan Injection) (04/16/20 03:00) Urine Culture (04/16/20 03:30) Lorazepam Injection (Ativan Injection) (04/16/20 04:15) Haloperidol Injection (Haldol Injectio (04/16/20 04:15) Villanueva Cath (04/16/20 04:23) Ed Iv/Invasive Line Start (04/16/20 04:30) Haloperidol Injection (Haldol Injectio (04/16/20 05:30) Lorazepam Injection (Ativan Injection) (04/16/20 05:30) Medications Given in ED Current Medications Medications Dose Ordered Sig/Lola Route Start Time Stop Time Status Last Admin Dose Admin Haloperidol Lactate 2 mg ONCE ONCE IM/IV 04/16/20 04:15 04/16/20 04:16 DC 04/16/20 04:15 2 MG Haloperidol Lactate 2.5 mg ONCE ONCE IM/IV 04/16/20 05:30 04/16/20 05:31 04/16/20 05:26 2.5 MG Lorazepam 1 mg ONCE ONCE IVP 04/16/20 03:00 04/16/20 03:01 DC 04/16/20 03:12 1 MG Lorazepam 1 mg ONCE ONCE IVP 04/16/20 04:15 04/16/20 04:16 DC 04/16/20 04:11 1 MG Lorazepam 1 mg ONCE ONCE IVP 04/16/20 05:30 04/16/20 05:31 04/16/20 05:25 1 MG Naloxone HCl 2 mg ONCE ONCE IV 04/16/20 02:30 04/16/20 02:31 DC 04/16/20 03:11 2 MG Ondansetron HCl 4 mg ONCE ONCE IVP 04/16/20 02:30 04/16/20 02:31 DC 04/16/20 03:09 4 MG Vital Signs/I&O 04/16/20 02:15 Temp 37.1 Pulse 90 Resp 20 B/P (MAP) 120/69 (86) Pulse Ox 95 O2 Delivery Room Air Capillary Refill : Less Than 3 Seconds Blood Pressure Mean: 86 Departure Communication (Admissions) CT head: No acute disease Chest x-ray: No acute disease Patient with encephalopathic with decreased/altered LOC and increased psychomotor agitation and pinpoint pupils. Family members removed fentanyl patch prior to ED arrival. Narcan given with increased alertness but patient remains confused with jerking movements of extremities. CT lab reviewed. Patient pus for oxycodone, methamphetamines and benzodiazepines. Suspect combination of polypharmacy/substance abuse as likely explanation. Patient requiring repeat doses of Ativan and Haldol for agitation. IV fluids given her renal insufficiency. Dr. Phillips accepts to [facility] ICU. Impression Primary Impression: Acute encephalopathy Disposition: ADMITTED INPATIENT Condition: Unchanged Admissions Decision to Admit Reason: Admit from ER (General) Decision to Admit/Date: Apr 16, 2020 Time/Decision to Admit Time: 05:15 (Dr. Phillips) Transfer Transfer Reason: Exceeds level of care Method of Transfer: EMS Departure-Patient Inst. Referrals: HAILEY STANLEY MD (PCP/Family) Primary Care Physician BOB QUINTERO DO Apr 16, 2020 05:26
[2020-04-16] MEDS ORDERED: NS IV 1000 ML 1,000 ML IV SCH ×2 (05:45→11:15)
[2020-04-16] MEDS ORDERED: cefTRIAXone FOR IV USE 1,000 MG in WATER (STERILE) FOR INJECTION 10 ML IV ONE (05:45)
--- NOTE | 2020-04-16 07:08 | Diagnostic Imaging Report ---
INDICATION: Altered mental status. TECHNIQUE: Single view chest 2:48 AM. CORRELATION STUDY: 11/30/2019 FINDINGS: The heart size, mediastinal configuration and pulmonary vascularity are within normal limits. Lung varela are with a chronic type change. No consolidating infiltrate. Metallic clip-like densities over the left upper quadrant. Prior kyphoplasty changes at what appears be L1 level, new since prior study. Internal fixation hardware of the proximal right humerus. Ununited distal right clavicle fracture. IMPRESSION: 1. Generally stable chest demonstrating no acute abnormality. Dictated by: Dictated on workstation # [id number]
--- NOTE | 2020-04-16 07:35 | Diagnostic Imaging Report ---
PROCEDURE: CT head without contrast. TECHNIQUE: Multiple contiguous axial images were obtained through the brain without the use of intravenous contrast. Auto Exposure Controls were utilized during the CT exam to meet ALARA standards for radiation dose reduction. INDICATION: Slurred speech, unresponsive. CORRELATION STUDY: 07/29/2019 FINDINGS: This is an essentially nondiagnostic examination owing to extensive patient motion artifact. Gross intracranial hemorrhage or midline shift is not suggested. Rayo low attenuating regional areas suggestive of a large territorial infarct is not suggested. IMPRESSION: 1. Essentially nondiagnostic examination. Large stroke or intracranial hemorrhage not grossly demonstrated. Initial report was provided by [employer]. Dictated by: Dictated on workstation # [id number]
[2020-04-16] MEDS ORDERED: CATHETER FLUSH 10 ML SYR IV PRN (09:30)
[2020-04-16] MEDS ORDERED: LORazepam INJ 2 MG/ML (ATIVAN) VIAL IV PRN (09:30)
[2020-04-16] MEDS ORDERED: DexMEDEtomidine 250 ML DRIP 250 ML IV SCH (09:45)
--- NOTE | 2020-04-16 09:55 | History & Physical-Hospitalist ---
History of Present Illness HPI/Chief Complaint CC: AMS due to meth use HPI: This is a 69yoWF clinic patient of [facility] who presented to the [facility] ER with AMS and found to have meth withdrawal. Patient is requiring Precedex due to agitation. Patient apparently has a h/o gastric bariatric surgeries and appears very thin and chronically ill and skin shows multiple sores c/w meth use. Source: RN/MD Exam Limitations: clinical condition Date Seen 04/16/20 Time Seen by a Provider: 10:15 Attending Physician Brenda Pearson DO PCP Self,eJsus TORRES Referring Physician Date of Admission Apr 16, 2020 at 09:15 Home Medications & Allergies Home Medications Reviewed patient Home Medication Reconciliation performed by pharmacy medication reconciliations electrical engineering technician and/or nursing. Patients Allergies have been reviewed. Allergies Allergies Coded Allergies diphenhydramine (Verified Allergy, Intermediate, MUSCLE PAIN; AGITATION, 06/09/19) promethazine (Verified Allergy, Mild, AGITATION, 06/09/19) Past Svtcyfr-Czmxyf-Gcagvh Hx Past Med/Social Hx: Reviewed Nursing Past Med/Soc Hx, Reviewed and Corrections made Patient Social History Smoking Status: Unknown if Ever Smoked 2nd Hand Smoke Exposure: No Recent Foreign Travel: No Contact w/other who traveled: No Recent Hopitalizations: No Recent Infectious Disease Expo: No Immunizations Up To Date Date of Pneumonia Vaccine: Aug 18, 2012 Date of Influenza Vaccine: Jul 06, 2015 Seasonal Allergies Seasonal Allergies: No Past Medical History Currently Using CPAP: No Currently Using BIPAP: No MG 8 yrs ago Reproductive: No Sexually Transmitted Disease: No HIV/AIDS: No Female Reproductive Disorders: Denies Gastrointestinal: Pancreatitis, Chronic Diarrhea Musculoskeletal: Osteoporosis, Fractures HEENT: Tonsilitis Loss of Vision: Denies Hearing Impairment: Denies Psychosocial: Anxiety History of Blood Disorders: No Adverse Reaction to Blood Castellanos: No Family History Diabetes mellitus 19 MOTHER FH: lung cancer 19 FATHER No Pertinent Family Hx Review of Systems Constitutional: see HPI Physical Exam Physical Exam Vital Signs Vital Signs - First Documented 04/16/20 02:15 Temp 37.1 Pulse 90 Resp 20 B/P (MAP) 120/69 (86) Pulse Ox 95 O2 Delivery Room Air Capillary Refill : Less Than 3 Seconds Height, Weight, BMI Height: 5'5.00" Weight: 113lbs. 0oz. 51.084554fx; 19.00 BMI Method:Stated General Appearance: Chronically ill, Cachetic, Other (agitated) Respiratory: Lungs Clear Cardiovascular: Tachycardia Neurologic/Psychiatric: Disoriented Results Results/Procedures Labs Laboratory Tests 04/16/20 02:50 Patient resulted labs reviewed. Assessment/Plan Admission Diagnosis Assessment: Severe encephalopathy Meth use/withdrawal Cachexia Dehydration Plan: Supportive care IVF Precedex Admission Status: Inpatient Order (span 2 midnights) Reason for Inpatient Admission: ams Diagnosis/Problems Diagnosis/Problems (1) Acute encephalopathy Status: Acute (2) S/P gastric bypass (3) History of ventilator dependency (4) B12 deficiency (5) Malnutrition BRENDA PEARSON DO Apr 16, 2020 09:55
[2020-04-16] MEDS ORDERED: cefTRIAXone FOR IV USE 1,000 MG in WATER (STERILE) FOR INJECTION 10 ML IV NR (11:15)
[2020-04-16] MEDS: NS IV 1000 ML 1,000 ML IV SCH ×2 (11:18→19:50)
--- NOTE | 2020-04-16 14:21 | NUR ---
DR PHILLIPS NOTIFIED OF PT DECREASED URINE OUTPUT, PT NOTED TO HAVE 50 ML OUT IN THE LAST 4 HOURS. ORDERS RECEIVED TO CONSULT E-ICU. THIS RN SPOKE TO EICU DOCTOR AND NEW ORDERS RECEIVED. SEE ORDER HX
[2020-04-16] MEDS: CATHETER FLUSH 10 ML SYR IV SCH ×2 (14:29→23:25)
[2020-04-16] MEDS ORDERED: NS IV 500 ML 500 ML IV ONE (14:30)
[2020-04-17] VITALS (12 sets, daily range): BP systolic 110–177; BP diastolic 64–86
[2020-04-17 03:17] LABS: BASOPHILS # (AUTO) 0.1 10^3/uL (0.0-0.1); BASOPHILS % (AUTO) 2 % (0-10); EOSINOPHILS # (AUTO) 0.1 10^3/uL (0.0-0.3); EOSINOPHILS % (AUTO) 2 % (0-10); HEMATOCRIT 33 % (35-52); HEMOGLOBIN 10.5 G/DL (11.5-16.0); LYMPHOCYTES # (AUTO) 1.8 X 10^3 (1.0-4.0); LYMPHOCYTES % (AUTO) 36 % (12-44); MEAN CORPUSCULAR HEMOGLOBIN 32 PG (25-34); MEAN CORPUSCULAR HGB CONC 32 G/DL (32-36); MEAN CORPUSCULAR VOLUME 102 FL (80-99); MEAN PLATELET VOLUME 10.3 FL (7.4-10.4); MONOCYTES # (AUTO) 0.5 X 10^3 (0.0-1.0); MONOCYTES % (AUTO) 11 % (0-12); NEUTROPHILS # (AUTO) 2.5 X 10^3 (1.8-7.8); NEUTROPHILS % (AUTO) 51 % (42-75); PLATELET COUNT 321 10^3/uL (130-400); RED CELL DISTRIBUTION WIDTH 14.3 % (10.0-14.5)
[2020-04-17 03:37] LABS: CHLORIDE 112 MMOL/L (98-107); POTASSIUM 4.2 MMOL/L (3.6-5.0); SODIUM 140 MMOL/L (135-145)
[2020-04-17 03:38] LABS: CALCIUM 7.3 MG/DL (8.5-10.1)
[2020-04-17 03:39] LABS: GLUCOSE 81 MG/DL (70-105)
[2020-04-17 03:40] LABS: ANISOCYTOSIS SLIGHT; EOSINOPHILS % (MANUAL) 2 %; LYMPHOCYTES % (MANUAL) 35 %; MONOCYTES % (MANUAL) 8 %; NEUTROPHILS % (MANUAL) 55 %
[2020-04-17 03:41] LABS: CARBON DIOXIDE 20 MMOL/L (21-32)
[2020-04-17 03:43] LABS: CREATININE SERUM 0.83 MG/DL (0.60-1.30); GFR ESTIMATED > 60; PHOSPHORUS 3.3 MG/DL (2.3-4.7)
[2020-04-17 03:44] LABS: BUN/CREATININE RATIO 20
[2020-04-17 03:45] LABS: MAGNESIUM 1.8 MG/DL (1.6-2.4)
--- NOTE | 2020-04-17 05:22 | Pulmonary Consultation ---
History of Present Illness History of Present Illness Date Seen by Provider: Apr 17, 2020 Time Seen by Provider: 05:16 Date of Admission History of Present Illness 69yo with hx of drug use and bariatric surgeries presented to ED and dx with methamphetamine withdrawal. Allergies and Home Medications Allergies Coded Allergies: diphenhydramine (Verified Allergy, Intermediate, MUSCLE PAIN; AGITATION, 06/09/19) promethazine (Verified Allergy, Mild, AGITATION, 06/09/19) Home Medications Abaloparatide 1.56 Ml Pen.injctr, 80 MCG SC HS, (Reported) Calcium Citrate/Vitamin D3 1 Each Tablet, 2 TAB.CHEW PO TIDWM, (Reported) 500MG/400 UNITS Carvedilol 3.125 Mg Tablet, 3.125 MG PO BID, (Reported) HOLD FOR HR <55 BPM OR SBP<95 Cyanocobalamin (Vitamin B-12) 500 Mcg Tablet, 500 MCG PO DAILY, (Reported) Duloxetine HCl 60 Mg Capsule.dr, 60 MG PO DAILY, (Reported) Fentanyl 1 Each Patch.td72, 25 MCG TD Q72H, (Reported) Gabapentin 300 Mg Capsule, 300 MG PO QID, (Reported) Immune Globulin,Gamma(IgG) 1 Gm/5 Ml Vial, 1 MG INJ FRIDAY, (Reported) TAKES 14GM (10GM+4GM) ON MONDAYS TAKES 11GM (10GM +1GM) ON TUESDAYS Immune Globulin,Gamma(IgG) 10 Gm/50 Ml Vial, 10 GM INJ , (Reported) TAKES 14GM (10GM+4GM) ON MONDAYS TAKES 11GM (10GM +1GM) ON TUESDAYS Immune Globulin,Gamma(IgG) 4 Gm/20 Ml Vial, 4 GM INJ FRIDAY, (Reported) TAKES 14GM (10GM+4GM) ON MONDAYS TAKES 11GM (10GM +1GM) ON TUESDAYS Levothyroxine Sodium 50 Mcg Tablet, 50 MCG PO HS, (Reported) Lipase/Protease/Amylase 1 Each Capsule.dr, 3 CAP PO TIDWM, (Reported) Lipase/Protease/Amylase 1 Each Capsule.dr, 2 CAP PO WITH SNACKS, (Reported) Meloxicam 15 Mg Tablet, 15 MG PO DAILY, (Reported) Multivitamin 1 Each Tablet, 2 TAB PO DAILY, (Reported) Omeprazole 40 Mg Capsule.dr, 40 MG PO DAILY, (Reported) Oxycodone HCl/Acetaminophen 1 Each Tablet, 0.5 EA PO Q6H PRN for PAIN-MODERATE (5-7), (Reported) Pravastatin Sodium 10 Mg Tablet, 10 MG PO HS, (Reported) Prednisone 5 Mg Tablet, 5 MG PO DAILY, (Reported) TAKES 15MG (10MG +5MG) DAILY Prednisone 10 Mg Tab, 15 MG PO DAILY, (Reported) TAKES 15MG (10MG +5MG) DAILY Pyridostigmine [place] 60 Mg Tab, 60 MG PO TID, (Reported) Pyridoxine HCl 100 Mg Tablet, 100 MG PO DAILY, (Reported) Ropinirole HCl 0.5 Mg Tablet, 0.5 MG PO HS, (Reported) Spironolactone 25 Mg Tablet, 25 MG PO DAILY, (Reported) Temazepam 30 Mg Capsule, 30 MG PO HS PRN for SLEEP, (Reported) Terbinafine HCl 250 Mg Tablet, 250 MG PO DAILY, (Reported) Past Jfrnqxq-Owgsju-Ptbmdc Hx Past Med/Social Hx: Reviewed Nursing Past Med/Soc Hx, Reviewed and Corrections made Patient Social History Smoking Status: Unknown if Ever Smoked 2nd Hand Smoke Exposure: No Recent Foreign Travel: No Contact w/Someone Who Travel: No Recent Infectious Disease Expo: No Recent Hopitalizations: No Immunizations Up To Date Date of Pneumonia Vaccine: Aug 18, 2012 Date of Influenza Vaccine: Jul 06, 2015 Seasonal Allergies Seasonal Allergies: No Past Medical History Surgeries: Yes (ORIF left hip, right shoulder sx, cholecystectomy, spleenectomy) Respiratory: Yes Pneumonia Currently Using CPAP: No Currently Using BIPAP: No Cardiac: Yes Neurological: Yes (MYASTHENIA GRAVIS) Reproductive Disorders: No Female Reproductive Disorders: Denies Sexually Transmitted Disease: No HIV/AIDS: No Genitourinary: No Gastrointestinal: Yes (GASTRITIS, MALNUTRITION, GASTRIC BYPASS, STOMACH STAPLING) Pancreatitis, Chronic Diarrhea Musculoskeletal: Yes (Kyphoplasty vertebrae of compression fx) Osteoporosis, Fractures Endocrine: No HEENT: Yes Tonsilitis Loss of Vision: Denies Hearing Impairment: Denies Cancer: No Psychosocial: Yes Anxiety Integumentary: No Blood Disorders: No Adverse Reaction/Blood Tranf: No Family Medical History Diabetes mellitus 19 MOTHER FH: lung cancer 19 FATHER No Pertinent Family Hx Review of Systems Time Seen by Provider: 05:21 Sepsis Event Evaluation Height, Weight, BMI Height: 5'5.00" Weight: 113lbs. 0oz. 51.571225ki; 19.00 BMI Method:Stated Exam Exam Vital Signs Date Time Temp Pulse Resp B/P (MAP) Pulse Ox O2 Delivery O2 Flow Rate FiO2 04/17/20 04:00 95 Room Air 04/17/20 03:00 84 10 137/80 (99) 98 Room Air 04/17/20 02:00 66 18 124/71 (88) 98 Room Air 04/17/20 01:00 63 04/17/20 01:00 63 15 110/64 (79) 96 Room Air 04/17/20 00:00 95 Room Air 04/17/20 00:00 36.4 04/17/20 00:00 82 23 118/67 (84) 97 Room Air 04/16/20 23:00 75 14 113/64 (80) 98 Room Air 04/16/20 22:00 72 13 103/66 (78) 96 Room Air 04/16/20 21:00 71 18 101/57 (72) 95 Room Air 04/16/20 20:19 79 17 101/58 (72) 97 Room Air 04/16/20 20:00 95 Room Air 04/16/20 20:00 106 10 161/98 (119) 97 Room Air 04/16/20 20:00 36.3 04/16/20 19:00 66 18 117/64 (81) 96 Room Air 04/16/20 19:00 66 04/16/20 18:00 67 17 106/59 (75) 96 Room Air 04/16/20 17:00 57 17 93/53 (66) 96 Room Air 04/16/20 16:37 96 Room Air 04/16/20 16:00 64 13 102/59 (73) 96 Room Air 04/16/20 16:00 36.1 04/16/20 15:00 66 17 103/58 (73) 96 Room Air 04/16/20 14:00 116 15 101/77 (85) 96 Room Air 04/16/20 13:00 101 17 105/68 (80) 92 Room Air 04/16/20 12:35 97 Room Air 04/16/20 12:29 94 04/16/20 12:00 96 9 101/76 (84) 97 Room Air 04/16/20 11:00 102 24 127/69 (88) 95 Room Air 04/16/20 10:24 98 Room Air 04/16/20 10:10 133/82 (99) 04/16/20 10:00 114 24 127/82 (97) 97 Room Air 04/16/20 09:42 113 117/80 04/16/20 09:27 113 04/16/20 09:25 118 15 117/80 (92) 98 Room Air 04/16/20 08:06 110 18 115/72 97 Room Air I & O 04/17/20 07:00 Intake Total 2500 ml Output Total 600 ml Balance 1900 ml Height & Weight Height: 5'5.00" Weight: 113lbs. 0oz. 51.319432nu; 19.00 BMI Method:Stated General Appearance: Chronically ill, Cachetic, Other (agitated) HEENT: PERRL/EOMI, Pharynx Normal, Moist Mucous Membranes Neck: Non Tender, Supple Respiratory: Lungs Clear Cardiovascular: Tachycardia Capillary Refill: Less Than 3 Seconds Gastrointestinal: No normal bowel sounds; non tender, soft Extremity: Normal Capillary Refill, Normal Inspection, No Pedal Edema, Other (h ealing abrasions to right leg) Neurologic/Psychiatric: Alert, Disoriented Skin: Normal Color, Warm/Dry Lymphatic: No Adenopathy Results Lab Laboratory Tests 04/16/20 02:50 04/17/20 02:55 Assessment/Plan Assessment/Plan Methamphetamine use -Education Agitation -pt is currently on Precedex gtt - Titrate to D/C -Add scheduled risperadol and PRN Haldol -PRN Ativan Anemia -Monitor Metabolic acidosis -Monitor Once pt transfers to [facility] I will sign off. Please call with any questions. LING WEBB DO Apr 17, 2020 05:22
[2020-04-17] MEDS: CATHETER FLUSH 10 ML SYR IV SCH ×3 (05:25→21:36)
[2020-04-17] MEDS: NS IV 1000 ML 1,000 ML IV SCH (05:25)
[2020-04-17] MEDS ORDERED: HALOPERIDOL 5 MG/ML (HALDOL) VIAL IV PRN (05:30)
--- NOTE | 2020-04-17 05:31 | Diagnostic Imaging Report ---
Indication: Shortness of breath Portable chest 3:39 AM Heart size and pulmonary vascularity are normal. Lungs are clear. There are no effusions or pneumothoraces. IMPRESSION: Negative chest Dictated by: Dictated on workstation # [id number]
[2020-04-17] MEDS ORDERED: MAGNESIUM 1 GM/100 ML IVPB 100 ML IV SCH (06:00)
[2020-04-17] MEDS ORDERED: KCL 20 MEQ TAB (K-DUR) PO SCH (06:00)
[2020-04-17] MEDS ORDERED: POTASSIUM CL 10MEQ/50ML IVPB 50 ML IV SCH (06:00)
[2020-04-17] MEDS: risperiDONE 1 MG (RisperDAL) TAB PO SCH ×2 (07:54→21:35)
[2020-04-17] MEDS: ENOXAPARIN 40 MG/0.4 ML (LOVENOX) SYR SC SCH (07:54)
[2020-04-17] MEDS ORDERED: PANTOPRAZOLE 40 MG (PROTONIX) VIAL IV SCH (09:00)
--- NOTE | 2020-04-17 09:31 | Progress Note ---
Subjective Subjective/Events-last exam Patient feeling much better this AM. Seems to be at her baseline. Still weak and fatigued. Has not been out of bed. States that her right wrist is hurting her and states that she broke it last week. Has been NPO. Review of Systems Pulmonary: No Dyspnea, No Cough Cardiovascular: No: Chest Pain, Palpitations Gastrointestinal: No: Nausea, Vomiting, Abdominal Pain Musculoskeletal: hand pain (Right) Neurological: Weakness, Incoordination Objective Exam Last Set of Vital Signs Vital Signs Date Time Temp Pulse Resp B/P (MAP) Pulse Ox O2 Delivery O2 Flow Rate FiO2 04/17/20 08:24 Room Air 04/17/20 07:42 37.1 04/17/20 06:00 75 14 141/83 (102) 94 Capillary Refill : Less Than 3 SecondsLess Than 3 Seconds I&O Intake and Output 04/17/20 00:00 Intake Total 2500 ml Output Total 350 ml Balance 2150 ml Intake Oral 0 ml IV Total 2500 ml Output Urine Total 350 ml Daily Weight Change Unsure/Unresponsive General: Alert, Oriented X3, No Acute Distress Lungs: Clear to Auscultation, Normal Air Movement Heart: Regular Rate, No Murmurs Abdomen: Normal Bowel Sounds, Soft, No Tenderness, No Masses Extremities: Other (Right wrist: deformity and mild swelling, mild ttp on lateral side) Skin: Other (diffuse excoriations on arms, legs and face) Neuro: Normal Speech, Sensation Intact, Cranial Nerves 3-12 NL Psych/Mental Status: Mental Status NL, Mood NL Results/Procedures Lab Laboratory Tests 04/17/20 02:55: White Blood Count 5.0, Red Blood Count 3.26L, Hemoglobin 10.5L, Hematocrit 33L, Mean Corpuscular Volume 102H, Mean Corpuscular Hemoglobin 32, Mean Corpuscular Hemoglobin Concent 32, Red Cell Distribution Width 14.3, Platelet Count 321, Mean Platelet Volume 10.3, Neutrophils (%) (Auto) 51, Lymphocytes (%) (Auto) 36, Monocytes (%) (Auto) 11, Eosinophils (%) (Auto) 2, Basophils (%) (Auto) 2, Neutrophils # (Auto) 2.5, Lymphocytes # (Auto) 1.8, Monocytes # (Auto) 0.5, Eosinophils # (Auto) 0.1, Basophils # (Auto) 0.1, Neutrophils % (Manual) 55, Lymphocytes % (Manual) 35, Monocytes % (Manual) 8, Eosinophils % (Manual) 2, Anisocytosis SLIGHT, Macrocytosis MODERATE, Sodium Level 140, Potassium Level 4.2, Chloride Level 112H, Carbon Dioxide Level 20L, Anion Gap 8, Blood Urea Nitrogen 17, Creatinine 0.83, Estimat Glomerular Filtration Rate > 60, BUN/Creatinine Ratio 20, Glucose Level 81, Calcium Level 7.3L, Phosphorus Level 3.3, Magnesium Level 1.8 Microbiology 04/16/20 MRSA Screen - Final, Complete MRSA not isolated Assessment/Plan Assessment/Plan (1) Altered mental status Status: Resolved Assessment & Plan: 04/17: Seems to be at baseline, discussed the need for meth cessation (2) Right arm pain Status: Acute Assessment & Plan: 04/17: Recent h/o fracture, ortho consulted for splinting (3) Myasthenia gravis Status: Acute (4) Acute kidney failure Status: Resolved (5) Normocytic anemia Status: Chronic Assessment & Plan: 04/17: At baseline, no signs of acute bleeding (6) Encephalopathy acute Status: Acute (7) Methamphetamine abuse Status: Chronic Clinical Quality Measures DVT/VTE Risk/Contraindication: Risk Factor Score Per Nursin RFS Level Per Nursing on Admit: 2=Moderate BAYLEE PACHECO MD Apr 17, 2020 09:31
--- NOTE | 2020-04-17 11:05 | NUR ---
pt transferred to room 410 via w/ staff/personal belongings. report given to jj felipe, no questions/concerns voiced.
[2020-04-17] MEDS ORDERED: IMMU10VI14 INJ (11:31)
[2020-04-17] MEDS ORDERED: GABA300C PO (11:31)
[2020-04-17] MEDS ORDERED: IMMU4VIA INJ (11:31)
[2020-04-17] MEDS ORDERED: OXYC-464 PO (11:31)
[2020-04-17] MEDS ORDERED: PRED5TAB PO (11:31)
[2020-04-17] MEDS ORDERED: TERB250T16 PO (11:31)
[2020-04-17] MEDS ORDERED: PRD10T PO (11:31)
[2020-04-17] MEDS ORDERED: LEVO-129 PO (11:31)
[2020-04-17] MEDS ORDERED: ABAL1.56 SC (11:31)
[2020-04-17] MEDS ORDERED: FENT1PAT8 TD (11:31)
--- NOTE | 2020-04-17 11:34 | NUR ---
SPOKE WITH THE PT AND WENT THRU THE EXT MED HISTORY TO COMPLETE THE MED REC PT WASNT SURE OF THE NAMES OF HER MEDICATIONS SO I LISTED THEM USING THE EXT MED HISTORY AND PT WAS ABLE TO TELL ME HOW/WHEN SHE TAKES EACH MED FENTANYL PATCH WAS LAST FILLED 02-29-2020 #10/30DS- PT SAYS SHE WAS RECENTLY AT AND WHILE THERE SHE DIDNT USE ANY OF HER PATCHES, HENCE WHY SHE STILL HAS SOME HIZENTRA- FRIDAY 14GM FRIDAY 11GM PT USES 10GM ON BOTH FRIDAY AND FRIDAY, THEN ON FRIDAY USES AN ADDITIONAL 4GM AND FRIDAY USES AN ADDITIONAL 11GM. OTC MEDS: CALCIUM CIT W/ VIT D VIT B12 VIT B6 MTV
--- NOTE | 2020-04-17 11:38 | Occ Therapy Progress Note ---
Therapy Progress Note OT order received, chart reviewed. OT talked with pt's nurse about R splint that was ordered. Pt's nurse notified she needs to contact orthopedist about obtaining splint due to the nature of wrist injury (pt reports breaking her wrist last week). Pt's nurse notified pt to be d/c'd from OT at this time, new orders needed for additional OT services. LONDON LOPEZ OT Apr 17, 2020 11:38
--- NOTE | 2020-04-17 14:04 | Physical Therapy Evaluation ---
PT Evaluation-General Medical Diagnosis Admission Date Apr 16, 2020 at 09:15 Medical Diagnosis: encephalopathy Onset Date: Apr 16, 2020 Therapy Diagnosis Therapy Diagnosis: debility Height/Weight Height (Feet): 5 Height (Inches): 5.00 Weight (Pounds): 113 Weight (Ounces): 0 Precautions Precautions/Isolations: Fall Prevention, Standard Precautions, Pressure Ulcer Referral Physician: Dylon Reason for Referral: Evaluation/Treatment Medical History Pertinent Medical History: GERD, HTN Additional Medical History anxiety, myasthenia gravis, gastric bypass Current History EMS secondary to AMS/unresponsiveness Reviewed History: Yes Social History Home: Single Level Current Living Status: Spouse Entry Into Home: Level Entry Prior Prior Level of Function SCALE: Activities may be completed with or without assistive devices. 3-Likpuxhztz-fualglz completes the activity by him/herself with no assistance from a helper. 5-Set-up or Clean-up Assistance-helper sets up or cleans up; patient completes activity. [place] assists only prior to or following the activity. 4-Supervision or Touching Assistance-helper provides verbal cues and/or touching/steadying and/or contact guard assistance as patient completes activity. Assistance may be provided throughout the activity or intermittently. 3-Partial/Moderate Assistance-helper does LESS THAN HALF the effort. [place] lifts, holds or supports trunk or limbs, but provides less than half the effort. 2-Substantial/Maximal Assistance-helper does MORE THAN HALF the effort. [place] lifts or holds trunk or limbs and provides more than half the effort. 5-Nyxalcyyw-lpsahg does ALL the effort. Patient does none of the effort to complete the activity. Or, the assistance of 2 or more helpers is required for the patient to complete the activity. If activity was not attempted, code reason: 7-Patient Refused. 9-Not Applicable-not attempted and the patient did not perform the activity before the current illness, exacerbation or injury. 10-Not Attempted due to Environmental Limitations-(lack of equipment, weather restraints, etc.). 88-Not Attempted due to Medical Conditions or Safety Concerns. Bed Mobility: 6 Transfers (B,C,W/C): 6 Gait: 6 Indoor Mobility (Ambulation): Independent Prior Devices Use: None PT Evaluation-Current Subjective Patient states her right shoulder and wrist were broken, 3 yrs ago and wants pain medication due to this. Agrees to PT. Pain Numeric Pain Scale: 8 Location: Right Location Body Site: Shoulder Pain Description: Chronic Objective Patient Orientation: Person, Time, Situation ROM/Strength ROM Lower Extremities bilateral LE WFL Strength Lower Extremities 4-/5 grossly bilateral LE Integumentary/Posture Integumentary refer to nursing notes Bowel Incontinence: No Bladder Incontinence: No Posture slightly kyphotic Neuromuscular (Tone, Coordination, Reflexes) grossly intact Sensory Vision: Functional Hearing: Functional Sensation Right Lower Extremit: Intact Sensation Left Lower Extremity: Intact Transfers Roll Left to Right (QC): 6 Sit to Lying (QC): 6 Lying to Sitting/Side of Bed(Q: 6 Sit to Stand (QC): 6 Chair/Zkn-dd-Nnaxl Xfer(QC): 6 Gait Does the Patient Walk?: Yes Mode of Locomotion: Walk Anticipated Mode of Locomotion: Walk Walk 10 feet (QC): 5 Walk 50 ft with 2 Turns(QC): 5 Walk 150 ft (QC): 5 Distance: 550' Gait Assistive Device: Walker Platform (right) Comments/Gait Description safe and functional gait sequence Wheelchair Training Does the Pt Use a Wheelchair?: No Balance Sitting Static: Normal Sitting Dynamic: Normal Standing Static: Normal Standing Dynamic: Normal Picking up an Object (QC): 6 (picked up socks and donned independently) Assessment/Needs 69 y.o. female, will be seen short term by skilled PT to address functional mobility to ensure safe return to home with family at maximum LOF. Rehab Potential: Fair PT Short Term Goals Short Term Goals Time Frame: Apr 21, 2020 Roll Left & Right: 6 Sit to lyin Lying to sitting on side of be: 6 Sit to stand: 6 Chair/vtn-gt-pmfvb transfer: 6 Toilet transfer: 6 Walk 10 feet: 6 Walk 50 feet with two turns: 6 Walk 150 feet: 6 PT Plan Treatment/Plan Treatment Plan: Continue Plan of Care Treatment Plan: Education, Functional Activity Mary Grace, Functional Strength, Gait, Safety, Therapeutic Exercise, Transfers Treatment Duration: Apr 21, 2020 Frequency: 5 times per week Estimated Hrs Per Day: .25 hour per day Patient and/or Family Agrees t: Yes Discharge Recommendations Therapy Discharge Recommendati: Home & Family Time/GCodes Time In: 1310 Time Out: 1324 Total Billed Treatment Time: 14 Total Billed Treatment 1 visit EVMod 14 min JOSH EMMANUEL PT Apr 17, 2020 14:04
[2020-04-17] MEDS ORDERED: HYDROcodone/APAP 5 MG/325 MG (LORTAB) TAB ONE (15:09)
--- NOTE | 2020-04-17 15:17 | NUR ---
LORENZO visited with the patient for discharge planning. Adult Protective Service Report ID: [id number] The patient was in the bathroom when this sw went to visit. She states that she is needing briefs. ORLY/AMILCAR informed the patient's nurse. She brought patient brief and wheelchair. Home: Patient reports that she live at home with her Wade, Granddaughter, and Great Grandchildren. She states that she is independent at home with all of her daily living activities. The patient does report to using a walker on occasion when she is feeling unsteady. The patient states that she has had multiple falls in the past that lead to broken bones. She verbalized she currently has a broken hand . No steps in the home. Patient has a walk-in shower and handy cap bathroom. Equipment: Patient reports owning a walker. Unsure of what DME. The patient states that she does have a shower chair, and grab bars. Home Health/ Paid Caregivers: None. Supports: patient states that she has good support at home and her granddaughter assist with any needs they have. Drug Use: Patient denies drug use. She states she "does not know why that would be showing up", "what is Methamphetamines?", "how do people even use Meth?", and "how would people be giving it to me without knowing?". Patient denies drug use for any members in the house hold. ORLY/AMILCAR asked Pharmacist to check medication list to confirm that they will not show a false positive. He looked over medications and did not find any that would show false positive. The patient reports that she was helping take care of. ORLY/AMILCAR made an Adult Protective Services report due to young child in home with positive Urine Drug Screen. LORENZO will continue to follow for discharge planning.
[2020-04-17] MEDS: HYDROcodone/APAP 5 MG/325 MG (LORTAB) TAB PO PRN ×2 (15:19→21:35)
[2020-04-17] MEDS ORDERED: LEVOTHYROXINE 50 MCG (LEVOTHROID) TAB PO SCH (21:00)
[2020-04-17] MEDS: CARVEDILOL 3.125 MG (COREG) TABLET PO SCH (21:35)
[2020-04-17] MEDS: GABAPENTIN 300 MG (NEURONTIN) CAP PO SCH (21:35)
[2020-04-18 04:00] VITALS: BP 176/111
--- NOTE | 2020-04-18 04:12 | NUR ---
TARA NOTIFIED OF PT BP OF 176/111, HR 100, PAIN AT 8/10. ORDERS TO GIVE FENTANYL 50MCG IV X1 NOW OBTAINED. TARA ALSO GIVES ORDER TO GIVE AM HYPERTENSION MEDICATIONS EARLY IF PT'S BP DOES NOT DECREASE AFTER FENTANYL IS GIVEN.
[2020-04-18] MEDS ORDERED: fentaNYL INJECTION 100 MCG/2 ML AMP IVP ONE (04:15)
[2020-04-18] MEDS: HYDROcodone/APAP 5 MG/325 MG (LORTAB) TAB PO PRN (04:20)
[2020-04-18] MEDS: CATHETER FLUSH 10 ML SYR IV SCH (04:20)
[2020-04-18 05:15] LABS: BASOPHILS # (AUTO) 0.1 10^3/uL (0.0-0.1); BASOPHILS % (AUTO) 1 % (0-10); EOSINOPHILS # (AUTO) 0.1 10^3/uL (0.0-0.3); EOSINOPHILS % (AUTO) 1 % (0-10); HEMATOCRIT 36 % (35-52); HEMOGLOBIN 11.4 G/DL (11.5-16.0); LYMPHOCYTES # (AUTO) 1.9 X 10^3 (1.0-4.0); LYMPHOCYTES % (AUTO) 38 % (12-44); MEAN CORPUSCULAR HEMOGLOBIN 32 PG (25-34); MEAN CORPUSCULAR HGB CONC 32 G/DL (32-36); MEAN CORPUSCULAR VOLUME 101 FL (80-99); MEAN PLATELET VOLUME 10.5 FL (7.4-10.4); MONOCYTES # (AUTO) 0.6 X 10^3 (0.0-1.0); MONOCYTES % (AUTO) 12 % (0-12); NEUTROPHILS # (AUTO) 2.4 X 10^3 (1.8-7.8); NEUTROPHILS % (AUTO) 47 % (42-75); PLATELET COUNT 320 10^3/uL (130-400); RED CELL DISTRIBUTION WIDTH 14.2 % (10.0-14.5); WHITE BLOOD COUNT 5.1 10^3/uL (4.3-11.0)
[2020-04-18 05:27] LABS: CHLORIDE 109 MMOL/L (98-107); POTASSIUM 3.8 MMOL/L (3.6-5.0); SODIUM 138 MMOL/L (135-145)
[2020-04-18 05:28] LABS: CALCIUM 7.9 MG/DL (8.5-10.1)
[2020-04-18 05:29] LABS: GLUCOSE 95 MG/DL (70-105)
[2020-04-18 05:30] LABS: CARBON DIOXIDE 20 MMOL/L (21-32)
[2020-04-18 05:32] LABS: PHOSPHORUS 2.8 MG/DL (2.3-4.7)
[2020-04-18 05:33] LABS: CREATININE SERUM 0.79 MG/DL (0.60-1.30); GFR ESTIMATED > 60
[2020-04-18 05:34] LABS: BUN/CREATININE RATIO 11
[2020-04-18 05:35] LABS: MAGNESIUM 1.8 MG/DL (1.6-2.4)
[2020-04-18 08:00] VITALS: BP 160/88
[2020-04-18] MEDS: CARVEDILOL 3.125 MG (COREG) TABLET PO SCH (08:47)
[2020-04-18] MEDS: risperiDONE 1 MG (RisperDAL) TAB PO SCH (08:47)
[2020-04-18] MEDS: GABAPENTIN 300 MG (NEURONTIN) CAP PO SCH (08:47)
[2020-04-18] MEDS: ENOXAPARIN 40 MG/0.4 ML (LOVENOX) SYR SC SCH (08:48)
[2020-04-18] MEDS ORDERED: SPIRONOLACTONE 25 MG (ALDACTONE) TAB PO SCH (09:00)
[2020-04-18] MEDS ORDERED: predniSONE 5 MG TAB PO SCH ×2 (09:00)
[2020-04-18] MEDS ORDERED: DULoxetine 30 MG (CYMBALTA) CAP PO SCH (09:00)
--- NOTE | 2020-04-18 10:06 | Physical Therapy Daily Note ---
PT Daily Note-Current Subjective Patient is dressed and up in recliner watching television. Pain Numeric Pain Scale: 0-No Pain Location: No Pain Reported Mental Status Patient Orientation: Person, Time, Situation Transfers SCALE: Activities may be completed with or without assistive devices. 4-Mxzlvgtazz-bovyfal completes the activity by him/herself with no assistance from a helper. 5-Set-up or Clean-up Assistance-helper sets up or cleans up; patient completes a ctivity. [place] assists only prior to or following the activity. 4-Supervision or Touching Assistance-helper provides verbal cues and/or touching/steadying and/or contact guard assistance as patient completes activity. Assistance may be provided throughout the activity or intermittently. 3-Partial/Moderate Assistance-helper does LESS THAN HALF the effort. [place] lifts, holds or supports trunk or limbs, but provides less than half the effort. 2-Substantial/Maximal Assistance-helper does MORE THAN HALF the effort. [place] lifts or holds trunk or limbs and provides more than half the effort. 4-Xaalyqnye-ovfwyq does ALL the effort. Patient does none of the effort to complete the activity. Or, the assistance of 2 or more helpers is required for the patient to complete the activity. If activity was not attempted, code reason: 7-Patient Refused. 9-Not Applicable-not attempted and the patient did not perform the activity before the current illness, exacerbation or injury. 10-Not Attempted due to Environmental Limitations-(lack of equipment, weather restraints, etc.). 88-Not Attempted due to Medical Conditions or Safety Concerns. Sit to Stand (QC): 6 Gait Training Does the Patient Walk?: Yes Distance: 750' Walk 10 feet (QC): 6 Walk 50 ft with 2 Turns(QC): 6 Walk 150 ft (QC): 6 Gait Assistive Device: Walker Platform (right) safe and functional with no deviation Exercises Seated Therapy Exercises: Ankle pumps, Long arc quads, Hip flexion, Hip abd/add Seated Reps: 15 (2 sets) Standing: Mini squats Standing Reps: 15 Assessment Patient tolerated treatment well and remains up in recliner. Patient has right wrist/hand wrapped on this date. PT Short Term Goals Short Term Goals Time Frame: Apr 21, 2020 Roll Left & Right: 6 Sit to lyin Lying to sitting on side of be: 6 Sit to stand: 6 Chair/oju-rf-noeez transfer: 6 Toilet transfer: 6 Walk 10 feet: 6 Walk 50 feet with two turns: 6 Walk 150 feet: 6 PT Plan Treatment/Plan Treatment Plan: Continue Plan of Care Treatment Plan: Education, Functional Activity Mary Grace, Functional Strength, Gait, Safety, Therapeutic Exercise, Transfers Treatment Duration: Apr 21, 2020 Frequency: 5 times per week Estimated Hrs Per Day: .25 hour per day Patient and/or Family Agrees t: Yes Time/GCodes Time In: 912 Time Out: 935 Total Billed Treatment Time: 23 Total Billed Treatment 1 visit FA 15 min EX 8 min JOSH EMMANUEL PT Apr 18, 2020 10:06
--- NOTE | 2020-04-18 10:59 | NUR ---
CM/SS finalized discharge. Plan: Patient will return home today 04/18 with a new platform for her walker. DME: The patient was provided with a patient preference form. She chose [facility] in [place]. CM/SS contacted DME to make sure they had a platform in stock. They verbalized they do and patient prefers to go pick it up. CM/SS will fax face sheet, script, H&P when available. CM/SS received email with additional follow up questions for report. Followed up with vocational case manager. No further needs at this time.
--- NOTE | 2020-04-18 11:21 | Discharge Summary ---
Diagnosis/Chief Complaint Date of Admission Apr 16, 2020 at 09:15 Date of Discharge 04/18/2020 Admission Diagnosis Admission Diagnosis See problem list Discharge Diagnosis See below Problems/Diagnosis: (1) Altered mental status Assessment & Plan: 04/17: Seems to be at baseline, discussed the need for meth cessation 04/18: Patient at baseline at time of discharge Status: Resolved Resolution Date/Time: 04/17/20 @ 09:30 (2) Right arm pain Assessment & Plan: 04/17: Recent h/o fracture, ortho consulted for splinting 04/18: Splint present, walker platform ordered for home Status: Acute (3) Myasthenia gravis Status: Acute (4) Acute kidney failure Status: Resolved Resolution Date/Time: 04/17/20 @ 18:24 (5) Normocytic anemia Assessment & Plan: 04/17: At baseline, no signs of acute bleeding Status: Chronic (6) Encephalopathy acute Status: Acute (7) Methamphetamine abuse Status: Chronic Discharge Summary-Simple/Stand Consultations Discharge Physical Examination Allergies: Coded Allergies: diphenhydramine (Verified Allergy, Intermediate, MUSCLE PAIN; AGITATION, 06/09/19) promethazine (Verified Allergy, Mild, AGITATION, 06/09/19) Vitals & I&Os Vital Sign - Last 12Hours Date Time Temp Pulse Resp B/P (MAP) Pulse Ox O2 Delivery O2 Flow Rate FiO2 04/18/20 08:00 99 Room Air 04/18/20 08:00 37.0 85 20 160/88 (112) Intake and Output 04/18/20 00:00 Intake Total 1090 ml Balance 1090 ml General Appearance: Alert, Oriented X3, Cooperative, No Acute Distress HEENT: Mucous Memb Moist/[place] Respiratory: Clear to Auscultation, Normal Air Movement Cardiovascular: Regular Rate, No Murmurs Abdominal: Normal Bowel Sounds, Soft, No Tenderness, No Masses Extremities: No Edema, No Tenderness/Swelling Skin: Other (excoriations on face, arms and legs) Neuro: Strength at 5/5 X4 Ext, Sensation Intact, Cranial Nerves 3-12 NL Psych/Mental Status: Mental Status NL, Mood NL Hospital Course Was the Problem List Reviewed?: Yes See final discharge diagnosis. Discussion & Recommendations 69 yo F that presented with altered mental status. Patient was found to have a positive UDS for meth. Patient states that she does not know why she would be positive and denies using meth. Patient was started on IVFs and monitored in the ICU overnight. Patient returned to baseline and will be discharge home with close followup. Discharge Condition at discharge stable Instructions to patient/family Please see electronic discharge instructions given to patient. Discharge Medications Reviewed and agree with Discharge Medication list on patient's Discharge Instruction sheet Clinical Quality Measures DVT/VTE Risk/Contraindication: Risk Factor Score Per Nursin RFS Level Per Nursing on Admit: 2=Moderate Copy Copies To 1: SELF,BAYLEE BURNETTE MD, MD Apr 18, 2020 11:21
--- NOTE | 2020-04-18 11:25 | Discharge Summary ---
Discharge [facility] Reconcile Patient Problems Problems Reviewed?: Yes Discharge Medications New, Converted or Re-Newed RX: Transmitted to Pharmacy Continued Medications: Abaloparatide (Tymlos) 1.56 Ml Pen.injctr 80 MCG SC HS, EA Calcium Citrate/Vitamin D3 (Calcium Citrate +Vit D3 Tablet) 1 Each Tablet 2 TAB.CHEW PO TIDWM, TAB 500MG/400 UNITS Carvedilol (Carvedilol) 3.125 Mg Tablet 3.125 MG PO BID, TAB HOLD FOR HR <55 BPM OR SBP<95 Cyanocobalamin (Vitamin B-12) (B-12) 500 Mcg Tablet 500 MCG PO DAILY, TAB Duloxetine HCl (Duloxetine HCl) 60 Mg Capsule.dr 60 MG PO DAILY, CAP Fentanyl (Fentanyl Patch 25 MCG) 1 Each Patch.td72 25 MCG TD Q72H, PATCH Gabapentin (Neurontin) 300 Mg Capsule 300 MG PO QID, CAP Immune Globulin,Gamma(IgG) (Hizentra) 1 Gm/5 Ml Vial 1 MG INJ FRIDAY, EA TAKES 14GM (10GM+4GM) ON MONDAYS TAKES 11GM (10GM +1GM) ON TUESDAYS Immune Globulin,Gamma(IgG) (Hizentra) 10 Gm/50 Ml Vial 10 GM INJ FRI,, EACH TAKES 14GM (10GM+4GM) ON MONDAYS TAKES 11GM (10GM +1GM) ON TUESDAYS Immune Globulin,Gamma(IgG) (Hizentra) 4 Gm/20 Ml Vial 4 GM INJ FRIDAY, EA TAKES 14GM (10GM+4GM) ON MONDAYS TAKES 11GM (10GM +1GM) ON TUESDAYS Levothyroxine Sodium (Euthyrox) 50 Mcg Tablet 50 MCG PO HS, TAB Lipase/Protease/Amylase (Ashlee Layton 24,000 Units Capsule) 1 Each Capsule.dr 3 CAP PO TIDWM, CAP Lipase/Protease/Amylase (Ashlee Layton 24,000 Units Capsule) 1 Each Capsule.dr 2 CAP PO WITH SNACKS, CAP Meloxicam (Meloxicam) 15 Mg Tablet 15 MG PO DAILY, TAB Multivitamin (Multivitamins) 1 Each Tablet 2 TAB PO DAILY, TAB Omeprazole (Omeprazole) 40 Mg Capsule.dr 40 MG PO DAILY, CAP Oxycodone HCl/Acetaminophen (Oxycodon-Acetaminophen 7.5-325) 1 Each Tablet 0.5 EA PO Q6H PRN for PAIN-MODERATE (5-7), TAB Pravastatin Sodium (Pravastatin Sodium) 10 Mg Tablet 10 MG PO HS, TAB Prednisone (Prednisone) 5 Mg Tablet 5 MG PO DAILY, TAB TAKES 15MG (10MG +5MG) DAILY Prednisone (Prednisone) 10 Mg Tab 15 MG PO DAILY, TAB TAKES 15MG (10MG +5MG) DAILY Pyridostigmine [place] (Mestinon) 60 Mg Tab 60 MG PO TID, TAB Pyridoxine HCl (Vitamin B-6) 100 Mg Tablet 100 MG PO DAILY, TAB Ropinirole HCl (Ropinirole HCl) 0.5 Mg Tablet 0.5 MG PO HS, TAB Spironolactone (Spironolactone) 25 Mg Tablet 25 MG PO DAILY, TAB Temazepam (Temazepam) 30 Mg Capsule 30 MG PO HS PRN for SLEEP, CAP Terbinafine HCl (Terbinafine HCl) 250 Mg Tablet 250 MG PO DAILY, TAB Patient Instructions Goal/Follow Up Appt: You have an appt with Patricia Rdz next week on 04/26 @ 2 PM (Dr Carbone is out of the office) Activity & Diet Discharge Diet: No Restrictions Activity as Tolerated: Yes Copy Copies To 1: LIZETH,BAYLEE BURNETTE MD, MD Apr 18, 2020 11:25
[2020-04-18 11:54] VITALS: BP 160/88
--- NOTE | 2020-04-18 12:37 | NUR ---
"RD ASSESSMENT PMHx: pancreatitis; chronic diarrhea; osteoporosis; methamphetamine use PT INTERACTION: Pt was awake and pleasant during nutrition assessment. Pt states current appetite is good. Note avg PO intake 50% x2meal. Pt states following a low-fat diet at home, and has no issues with chewing/swallowing food. Note pt has dentures, per visual assessment. Pt states no recent issues with nausea, vomiting, constipation, or diarrhea. Note last BM was 04/17, and pt not currently on bowel regimen per chart review. Pt states recent wt changes up and down. Note recent 5# wt loss x2w, per chart review. ABNORMAL NUTRITION-RELATED LAB VALUES LOW: Ca 7.9 HIGH: Cl 109 Est. kcal needs: 1450 kcal | 30 kcal/kg Est. Pro needs: 58 g Pro | 1.2 g Pro/kg PES STATEMENT: Inadequate oral intake (NI-2.1) related to loss of appetite as evidenced by pt interview | avg PO intake 50% x2meal INTERVENTION: Continue with current diet order of DYS3 Advanced diet. Pt may benefit from nutrition supplementation if PO intake declines. Will continue to follow and reassess as pt needs, intake, and status change. MONITOR/EVALUATE: PO Intake; Plan of Care; Hydration Status; Weight Status; Lab Values Pebbles Luz, MS, RD, LD"
== END 2020-04-18 11:50 | disposition home or self-care (01) | DRG 896 ==
LOC: ER FS 02:16 → ICU 09:15 → 4TH 04-17 10:20 → ICU 04-17 12:29
PROVIDERS: ADMIT Internal Medicine; ATTEND Family Medicine
DX: F15.23 Other stimulant dependence with withdrawal (principal); G92 Toxic encephalopathy; E87.2 Acidosis; E46 Unspecified protein-calorie malnutrition; Z68.1 Body mass index [BMI] 19.9 or less, adult; R45.1 Restlessness and agitation; D64.9 Anemia, unspecified; E86.0 Dehydration; E53.8 Deficiency of other specified B group vitamins; M79.601 Pain in right arm; G70.00 Myasthenia gravis without (acute) exacerbation; M81.0 Age-related osteoporosis without current pathological fracture; F41.9 Anxiety disorder, unspecified; Z90.81 Acquired absence of spleen; Z87.19 Personal history of other diseases of the digestive system; Z98.84 Bariatric surgery status
CPT/HCPCS: 36415; 51702; 70450; 71045; 80048; 80053; 80306; 80320; 81000; 82140; 82550; 83735; 84100; 84146; 84443; 85007; 85025; 85027; 87040; 87081; 87088

== ENCOUNTER 2020-04-27 14:43 | Emergency (ER) | payer MEDICARE, OTHER ==
[~2020-04-27] VITALS: Ht 165.3 cm; Wt 48.1 kg
[~2020-04-27 14:43] MED LIST changes: +ABAL1.56 SC; -CALC600T14 PO; +CLC600T PO; +FENT1PAT8 TD; +GABA300C PO; +IMMU10VI14 INJ; +IMMU4VIA INJ; +LEVO-129 PO; +OXYC-464 PO; +PRED5TAB PO; +TERB250T16 PO
[2020-04-27] MEDS ORDERED: NS IV 1000 ML 1,000 ML IV STA (14:58)
--- NOTE | 2020-04-27 15:03 | ED General ---
General Chief Complaint: General Problems/Pain Stated Complaint: GENERAL WEAKNESS; HEADACHE Source of Information: Patient, Old Records, RN/MD Exam Limitations: No Limitations History of Present Illness Date Seen by Provider: Apr 27, 2020 Time Seen by Provider: 15:00 Initial Comments This patient is a 69-year-old female that presents to the emergency department complaining of a headache and fatigue. Patient has long history of myasthenia gravis and takes prednisone daily. Patient recently went from 15 mg daily down to 15 mg every other day. Patient states she's fatigued and has concerned she might be having a myasthenia gravis flare patient states she takes Excedrin Migraine at home but has not relieved her headache. Patient also concern for possible dehydration. Timing/Duration: 3-4 Days Severity: Moderate Associated Systoms: Headaches, Malaise Allergies and Home Medications Allergies Coded Allergies: diphenhydramine (Verified Allergy, Intermediate, MUSCLE PAIN; AGITATION, 06/09/19) promethazine (Verified Allergy, Mild, AGITATION, 06/09/19) Home Medications Abaloparatide 1.56 Ml Pen.injctr, 80 MCG SC HS, (Reported) Calcium Citrate/Vitamin D3 1 Each Tablet, 2 TAB.CHEW PO TIDWM, (Reported) 500MG/400 UNITS Carvedilol 3.125 Mg Tablet, 3.125 MG PO BID, (Reported) HOLD FOR HR <55 BPM OR SBP<95 Cyanocobalamin (Vitamin B-12) 500 Mcg Tablet, 500 MCG PO DAILY, (Reported) Duloxetine HCl 60 Mg Capsule.dr, 60 MG PO DAILY, (Reported) Fentanyl 1 Each Patch.td72, 25 MCG TD Q72H, (Reported) Gabapentin 300 Mg Capsule, 300 MG PO QID, (Reported) Immune Globulin,Gamma(IgG) 1 Gm/5 Ml Vial, 1 MG INJ FRIDAY, (Reported) TAKES 14GM (10GM+4GM) ON MONDAYS TAKES 11GM (10GM +1GM) ON TUESDAYS Immune Globulin,Gamma(IgG) 10 Gm/50 Ml Vial, 10 GM INJ , (Reported) TAKES 14GM (10GM+4GM) ON MONDAYS TAKES 11GM (10GM +1GM) ON TUESDAYS Immune Globulin,Gamma(IgG) 4 Gm/20 Ml Vial, 4 GM INJ FRIDAY, (Reported) TAKES 14GM (10GM+4GM) ON MONDAYS TAKES 11GM (10GM +1GM) ON TUESDAYS Levothyroxine Sodium 50 Mcg Tablet, 50 MCG PO HS, (Reported) Lipase/Protease/Amylase 1 Each Capsule.dr, 3 CAP PO TIDWM, (Reported) Lipase/Protease/Amylase 1 Each Capsule.dr, 2 CAP PO WITH SNACKS, (Reported) Meloxicam 15 Mg Tablet, 15 MG PO DAILY, (Reported) Multivitamin 1 Each Tablet, 2 TAB PO DAILY, (Reported) Omeprazole 40 Mg Capsule.dr, 40 MG PO DAILY, (Reported) Oxycodone HCl/Acetaminophen 1 Each Tablet, 0.5 EA PO Q6H PRN for PAIN-MODERATE (5-7), (Reported) Pravastatin Sodium 10 Mg Tablet, 10 MG PO HS, (Reported) Prednisone 5 Mg Tablet, 5 MG PO DAILY, (Reported) TAKES 15MG (10MG +5MG) DAILY Prednisone 10 Mg Tab, 15 MG PO DAILY, (Reported) TAKES 15MG (10MG +5MG) DAILY Pyridostigmine [place] 60 Mg Tab, 60 MG PO TID, (Reported) Pyridoxine HCl 100 Mg Tablet, 100 MG PO DAILY, (Reported) Ropinirole HCl 0.5 Mg Tablet, 0.5 MG PO HS, (Reported) Spironolactone 25 Mg Tablet, 25 MG PO DAILY, (Reported) Temazepam 30 Mg Capsule, 30 MG PO HS PRN for SLEEP, (Reported) Terbinafine HCl 250 Mg Tablet, 250 MG PO DAILY, (Reported) Patient Home Medication List Home Medication List Reviewed: Yes Review of Systems Review of Systems Constitutional: No no symptoms reported; see HPI; No chills, No diaphoresis, No dizziness, No fever; malaise, weakness; No weight gain, No weight loss, No other EENTM: No see HPI, No no symptoms reported, No ear discharge, No hearing loss, No ear pain, No blurred vision, No double vision, No eye pain, No tearing, No vision loss, No dental problems, No hoarseness, No mouth pain, No mouth swelling, No epistaxis, No nose congestion, No nose pain, No throat pain, No throat swelling, No other Respiratory: No no symptoms reported, No see HPI, No cough, No dyspnea on exertion, No hemoptysis, No orthopnea, No phlegm, No short of breath, No stridor, No wheezing, No other Cardiovascular: No no symptoms reported, No see HPI, No chest pain, No edema, No Hx of Intervention, No palpitations, No syncope, No vascular heart diseas, No other Gastrointestinal: No RUQ, No LUQ, No RLQ, No LLQ, No no symptoms reported, No see HPI, No abdominal pain, No constipation, No diarrhea, No dysphagia, No hematemesis, No heartburn, No jaundice, No loss of appetite, No melena, No nausea, No vomiting, No other Genitourinary: No no symptoms reported, No see HPI, No decreased output, No discharge, No dysuria, No frequency, No hematuria, No hesitancy, No incontinence, No nocturia, No pain, No other Musculoskeletal: No no symptoms reported, No see HPI, No back pain, No gout, No joint pain, No joint swelling, No muscle pain, No muscle stiffness, No muscle cramps, No muscle twitching, No muscle weakness, No neck pain, No other Skin: No no symptoms reported, No see HPI, No change in color, No change in hair/nails, No dryness, No hx of skin cancer, No lesions, No lumps, No pruritus, No rash, No other Psychiatric/Neurological: Denies No Symptoms Reported, Denies See HPI, Denies Anxiety, Denies Depressed, Denies Emotional Problems; Headache; Denies Numbness, Denies Paresthesia, Denies Pre-Existing Deficit, Denies Seizure, Denies Tingling, Denies Tremors, Denies Weakness, Denies Other All Other Systems Reviewed Negative Unless Noted: Yes Past Iybufoq-Koasxy-Kkzort Hx Patient Social History Alcohol Use: Denies Use Recreational Drug Use: No Smoking Status: Never a Smoker 2nd Hand Smoke Exposure: No Recent Foreign Travel: No Contact w/Someone Who Travel: No Recent Hopitalizations: No Physical Abuse: No Sexual Abuse: No Mistreated: No Fear: No Immunizations Up To Date Date of Pneumonia Vaccine: Aug 18, 2012 Date of Influenza Vaccine: Jul 06, 2015 Seasonal Allergies Seasonal Allergies: No Past Medical History Surgeries: Yes (ORIF left hip, right shoulder sx, cholecystectomy, spleenectomy) Gallbladder, Orthopedic Respiratory: Yes Pneumonia Currently Using CPAP: No Currently Using BIPAP: No Cardiac: Yes Neurological: Yes (MYASTHENIA GRAVIS) Reproductive Disorders: No Female Reproductive Disorders: Denies Sexually Transmitted Disease: No HIV/AIDS: No Genitourinary: No Gastrointestinal: Yes (GASTRITIS, MALNUTRITION, GASTRIC BYPASS, STOMACH STAPLING) Pancreatitis, Chronic Diarrhea Musculoskeletal: Yes (Kyphoplasty vertebrae of compression fx) Osteoporosis, Fractures Endocrine: No HEENT: Yes Tonsilitis Loss of Vision: Denies Hearing Impairment: Denies Cancer: No Psychosocial: Yes Anxiety Integumentary: No Blood Disorders: No Adverse Reaction/Blood Tranf: No Family Medical History Diabetes mellitus 19 MOTHER FH: lung cancer 19 FATHER No Pertinent Family Hx Physical Exam Vital Signs Vital Signs - First Documented 04/27/20 14:56 Temp 36.7 Pulse 97 Resp 16 B/P (MAP) 118/63 (81) Pulse Ox 97 O2 Delivery Room Air Capillary Refill : Height, Weight, BMI Height: 5'5.00" Weight: 113lbs. 0oz. [id number]; 19.00 BMI Method:Stated General Appearance: No Apparent Distress, WD/WN Respiratory: Chest Non Tender, Lungs Clear, Normal Breath Sounds, No Accessory Muscle Use, No Respiratory Distress Cardiovascular: Regular Rate, Rhythm, No Edema, No Gallop, No JVD, No Murmur, Normal Peripheral Pulses Gastrointestinal: Normal Bowel Sounds, No Organomegaly, No Pulsatile Mass, Non Tender, Soft Back: Normal Inspection, No CVA Tenderness, No Vertebral Tenderness Extremity: Normal Capillary Refill, Normal Inspection, Normal Range of Motion, Non Tender, No Calf Tenderness, No Pedal Edema Neurologic/Psychiatric: Alert, Oriented x3, No Motor/Sensory Deficits, Normal Mood/Affect Procedures/Interventions Suture Size: 4-0 Progress/Results/Core Measures Suspected Sepsis SIRS Temperature: Pulse: Respiratory Rate: Laboratory Tests 04/27/20 15:14: White Blood Count 4.2L Blood Pressure / Mean: Laboratory Tests 04/27/20 15:14: Creatinine 1.22, Platelet Count 283, Total Bilirubin 0.3 Results/Orders Lab Results Laboratory Tests Test 04/27/20 15:14 04/27/20 16:30 Range/Units White Blood Count 4.2 L 4.3-11.0 10^3/uL Red Blood Count 3.74 L 4.35-5.85 10^6/uL Hemoglobin 12.1 11.5-16.0 G/DL Hematocrit 38 35-52 % Mean Corpuscular Volume 102 H 80-99 FL Mean Corpuscular Hemoglobin 32 25-34 PG Mean Corpuscular Hemoglobin Concent 32 32-36 G/DL Red Cell Distribution Width 13.5 10.0-14.5 % Platelet Count 283 130-400 10^3/uL Mean Platelet Volume 11.1 H 7.4-10.4 FL Neutrophils (%) (Auto) 51 42-75 % Lymphocytes (%) (Auto) 31 12-44 % Monocytes (%) (Auto) 13 H 0-12 % Eosinophils (%) (Auto) 3 0-10 % Basophils (%) (Auto) 2 0-10 % Neutrophils # (Auto) 2.1 1.8-7.8 X 10^3 Lymphocytes # (Auto) 1.3 1.0-4.0 X 10^3 Monocytes # (Auto) 0.5 0.0-1.0 X 10^3 Eosinophils # (Auto) 0.1 0.0-0.3 10^3/uL Basophils # (Auto) 0.1 0.0-0.1 10^3/uL Sodium Level 138 135-145 MMOL/L Potassium Level 5.1 H 3.6-5.0 MMOL/L Chloride Level 103 98-107 MMOL/L Carbon Dioxide Level 29 21-32 MMOL/L Anion Gap 6 5-14 MMOL/L Blood Urea Nitrogen 13 7-18 MG/DL Creatinine 1.22 0.60-1.30 MG/DL Estimat Glomerular Filtration Rate 44 BUN/Creatinine Ratio 11 Glucose Level 99 70-105 MG/DL Calcium Level 8.6 8.5-10.1 MG/DL Corrected Calcium 9.7 8.5-10.1 MG/DL Total Bilirubin 0.3 0.1-1.0 MG/DL Aspartate Amino Transf (AST/SGOT) 49 H 5-34 U/L Alanine Aminotransferase (ALT/SGPT) 23 0-55 U/L Alkaline Phosphatase 122 40-136 U/L Total Protein 6.5 6.4-8.2 GM/DL Albumin 2.6 L 3.2-4.5 GM/DL Urine Color YELLOW Urine Clarity CLEAR Urine pH 7.0 5-9 Urine Specific [place] 1.010 L 1.016-1.022 Urine Protein NEGATIVE NEGATIVE Urine Glucose (UA) NEGATIVE NEGATIVE Urine Ketones NEGATIVE NEGATIVE Urine Nitrite NEGATIVE NEGATIVE Urine Bilirubin NEGATIVE NEGATIVE Urine Urobilinogen 0.2 < = 1.0 MG/DL Urine Leukocyte Esterase TRACE H NEGATIVE Urine RBC (Auto) NEGATIVE NEGATIVE Urine RBC NONE /HPF Urine WBC 0-2 /HPF Urine Squamous Epithelial Cells 0-2 /HPF Urine Crystals NONE /LPF Urine Bacteria NEGATIVE /HPF Urine Casts NONE /LPF Urine Mucus NEGATIVE /LPF Urine Culture Indicated NO Urine Opiates Screen NEGATIVE NEGATIVE Urine Oxycodone Screen NEGATIVE NEGATIVE Urine Methadone Screen NEGATIVE NEGATIVE Urine Propoxyphene Screen NEGATIVE NEGATIVE Urine Barbiturates Screen NEGATIVE NEGATIVE Ur Tricyclic Antidepressants Screen NEGATIVE NEGATIVE Urine Phencyclidine Screen NEGATIVE NEGATIVE Urine Amphetamines Screen NEGATIVE NEGATIVE Urine Methamphetamines Screen NEGATIVE NEGATIVE Urine Benzodiazepines Screen NEGATIVE NEGATIVE Urine Cocaine Screen NEGATIVE NEGATIVE Urine Cannabinoids Screen NEGATIVE NEGATIVE My Orders Orders - ALCON QUINTERO MD Ct Head Wo (04/27/20 14:58) Comprehensive Metabolic Panel (04/27/20 14:58) Cbc With Automated Diff (04/27/20 14:58) Urinalysis (04/27/20 14:58) Ed Iv/Invasive Line Start (04/27/20 14:58) Ns Iv 1000 Ml (Sodium Chloride 0.9%) (04/27/20 14:58) Dexamethasone Injection (Decadron Inje (04/27/20 15:00) Drug Screen Stat (Urine) (04/27/20 16:12) Medications Given in ED Current Medications Medications Dose Ordered Sig/Lola Route Start Time Stop Time Status Last Admin Dose Admin Dexamethasone Sodium Phosphate 10 mg ONCE ONCE IV 04/27/20 15:00 04/27/20 15:01 DC 04/27/20 15:20 10 MG Vital Signs/I&O 04/27/20 14:56 Temp 36.7 Pulse 97 Resp 16 B/P (MAP) 118/63 (81) Pulse Ox 97 O2 Delivery Room Air Capillary Refill : Progress Note : Time: 17:22 Progress Note Negative evaluation in the emergency department. I did discuss at length with Dr. Vu who is neuromuscular physician at for this patient. Dr. Vu recommends the patient be placed on 20 mg of prednisone daily for the next 30 days and they will reduce back down to 15 mg daily for 30 days and then back down to 15 mg twice a day until seen by him in the clinic. Patient is to call Dr. Vu office tomorrow for another updated appointment time. Patient is to continue all other home medications. Departure Impression Primary Impression: Chronic pain Additional Impressions: Fatigue History of myasthenia gravis Disposition: HOME, SELF-CARE Condition: Stable Departure-Patient Inst. Decision time for Depature: 17:25 Referrals: SELF,HAILEY TRORES (PCP/Family) Primary Care Physician Add. Discharge Instructions: Dr. Vu recommends the patient be placed on 20 mg of prednisone daily for the next 30 days and they will reduce back down to 15 mg daily for 30 days and then back down to 15 mg twice a day until seen by him in the clinic. Patient is to call Dr. Vu office tomorrow for another updated appointment time. Patient is to continue all other home medications. All discharge instructions reviewed with patient and/or family. Voiced understanding. Scripts Prednisone (Prednisone) 20 Mg Tab 20 MG PO DAILY for 30 Days, #30 TAB 0 Refills Prov: ALCON QUINTERO MD 04/27/20 ALCON QUINTERO MD Apr 27, 2020 15:02
[2020-04-27 15:27] LABS: BASOPHILS % (AUTO) 2 % (0-10); EOSINOPHILS % (AUTO) 3 % (0-10); HEMATOCRIT 38 % (35-52); HEMOGLOBIN 12.1 G/DL (11.5-16.0); LYMPHOCYTES % (AUTO) 31 % (12-44); MEAN CORPUSCULAR HEMOGLOBIN 32 PG (25-34); MEAN CORPUSCULAR HGB CONC 32 G/DL (32-36); MEAN CORPUSCULAR VOLUME 102 FL (80-99); MEAN PLATELET VOLUME 11.1 FL (7.4-10.4); MONOCYTES % (AUTO) 13 % (0-12); NEUTROPHILS % (AUTO) 51 % (42-75); PLATELET COUNT 283 10^3/uL (130-400); WHITE BLOOD COUNT 4.2 10^3/uL (4.3-11.0)
[2020-04-27 15:28] LABS: BASOPHILS # (AUTO) 0.1 10^3/uL (0.0-0.1); EOSINOPHILS # (AUTO) 0.1 10^3/uL (0.0-0.3); LYMPHOCYTES # (AUTO) 1.3 X 10^3 (1.0-4.0); MONOCYTES # (AUTO) 0.5 X 10^3 (0.0-1.0); NEUTROPHILS # (AUTO) 2.1 X 10^3 (1.8-7.8)
[2020-04-27 15:42] LABS: ALBUMIN 2.6 GM/DL (3.2-4.5); BILIRUBIN,TOTAL 0.3 MG/DL (0.1-1.0); CALCIUM 8.6 MG/DL (8.5-10.1); CREATININE SERUM 1.22 MG/DL (0.60-1.30); POTASSIUM 5.1 MMOL/L (3.6-5.0); TOTAL PROTEIN 6.5 GM/DL (6.4-8.2)
--- NOTE | 2020-04-27 15:48 | Diagnostic Imaging Report ---
CLINICAL INDICATION: Patient with left-sided temporal headache and weakness. EXAM: Axial CT scan of the brain without IV contrast with coronal and sagittal reformatted images. Auto Exposure Controls were utilized during the CT exam to meet ALARA standards for radiation dose reduction. COMPARISON: None. FINDINGS: There is no evidence of acute cerebral infarct, intracranial hemorrhage, or gross mass effect. The brain parenchymal volume appears appropriate for patient's age. There are small patchy areas of low-attenuation white matter changes involving both cerebral hemispheres likely representing chronic small vessel ischemic disease. There is normal arevalo-white matter distinction. There is no significant midline shift or herniation. There is no evidence of hydrocephalus. The basal cisterns are unremarkable. The skull, extracranial soft tissue, and orbits are unremarkable. The paranasal sinuses are unremarkable. Temporal bones show no significant abnormality. IMPRESSION: Unremarkable CT scan of the brain for age. Dictated by: Dictated on workstation # [id number]
[2020-04-27 16:48] LABS: CLARITY,URINE CLEAR; COLOR,URINE YELLOW
[2020-04-27 16:49] LABS: BACTERIA,URINE NEGATIVE /HPF; BILIRUBIN,URINE NEGATIVE (NEGATIVE); GLUCOSE, URINE (UA) NEGATIVE (NEGATIVE); KETONES,URINE NEGATIVE (NEGATIVE); LEUKOCYTE ESTERASE ,URINE TRACE (NEGATIVE); NITRITE,URINE NEGATIVE (NEGATIVE); PROTEIN,URINE NEGATIVE (NEGATIVE); SQUAMOUS EPITHELIAL CELL,UR 0-2 /HPF; WBC,URINE 0-2 /HPF
[2020-04-27 17:00] LABS: AMPHETAMINE SCREEN, URINE NEGATIVE (NEGATIVE); BARBITURATE SCREEN URINE NEGATIVE (NEGATIVE); BENZODIAZEPINES SCREEN URINE NEGATIVE (NEGATIVE); CANNABINOID SCREEN, URINE NEGATIVE (NEGATIVE); COCAINE SCREEN URINE NEGATIVE (NEGATIVE); METHADONE STAT NEGATIVE (NEGATIVE); METHAMPHETAMINE SCREEN URINE S NEGATIVE (NEGATIVE); OPIATE SCREEN URINE NEGATIVE (NEGATIVE); OXYCODONE STAT NEGATIVE (NEGATIVE); PROPOXYPHENE STAT NEGATIVE (NEGATIVE); TRICYCLIC ANTIDEPRESSANTS SCRE NEGATIVE (NEGATIVE)
[2020-04-27] MEDS ORDERED: PRD20T PO (17:27)
[2020-04-27 17:45] VITALS: BP 108/54
== END 2020-04-27 17:31 | disposition home or self-care (01) ==
LOC: EDUNIT# 14:43 → ER FS 14:44
DX: G89.29 Other chronic pain (principal); R51 Headache; R53.83 Other fatigue; G70.00 Myasthenia gravis without (acute) exacerbation; F41.9 Anxiety disorder, unspecified; Z79.52 Long term (current) use of systemic steroids; Z88.8 Allergy status to other drugs, medicaments and biological substances; Z80.1 Family history of malignant neoplasm of trachea, bronchus and lung
CPT/HCPCS: 36415; 70450; 80053; 80306; 81000; 85025

== ENCOUNTER 2020-06-13 21:53 | Emergency (ER) | payer MEDICARE, OTHER ==
[~2020-06-13] VITALS: Ht 165.1 cm; Wt 49.8 kg
--- NOTE | 2020-06-13 22:10 | ED Fall/Injury ---
General Chief Complaint: Trauma-Non Activation Stated Complaint: FELL,HIT HEAD,LOSS OF HEARING Source: patient Exam Limitations: no limitations History of Present Illness Date Seen by Provider: Jun 13, 2020 Time Seen by Provider: 21:56 Initial Comments patient presents to the ER by private conveyance from home with her spouse and chief complaint that just prior to arrival she was walking up the driveway and there was a limb in the driveway she did not see. She tripped on it fell landing on the right side of her face. Now she has decreased since of hearing on the right side only. She has no weakness or numbness. She's having pain in her right hand on the fifth metacarpal which she fractured earlier. She also abraded her right knee but has had no problems walking on it since then. She says she has known degenerative disease in her knee and it needs to be replaced. 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 Surgeon at told her it would take 8 surgeries to fix everything. She is on prednisone chronically for myasthenia gravis. She denies use of any blood thinners. She denies loss of consciousness. She did take a hydrocodone about one hour prior to arrival and feels that it is not helping her headache. Allergies and Home Medications Allergies Coded Allergies: diphenhydramine (Verified Allergy, Intermediate, MUSCLE PAIN; AGITATION, 06/09/19) promethazine (Verified Allergy, Mild, AGITATION, 06/09/19) Home Medications Abaloparatide 1.56 Ml Pen.injctr, 80 MCG SC HS, (Reported) Calcium Citrate/Vitamin D3 1 Each Tablet, 2 TAB.CHEW PO TIDWM, (Reported) 500MG/400 UNITS Carvedilol 3.125 Mg Tablet, 3.125 MG PO BID, (Reported) HOLD FOR HR <55 BPM OR SBP<95 Cyanocobalamin (Vitamin B-12) 500 Mcg Tablet, 500 MCG PO DAILY, (Reported) Duloxetine HCl 60 Mg Capsule.dr, 60 MG PO DAILY, (Reported) Fentanyl 1 Each Patch.td72, 25 MCG TD Q72H, (Reported) Gabapentin 300 Mg Capsule, 300 MG PO QID, (Reported) Immune Globulin,Gamma(IgG) 1 Gm/5 Ml Vial, 1 MG INJ FRIDAY, (Reported) TAKES 14GM (10GM+4GM) ON MONDAYS TAKES 11GM (10GM +1GM) ON TUESDAYS Immune Globulin,Gamma(IgG) 10 Gm/50 Ml Vial, 10 GM INJ , (Reported) TAKES 14GM (10GM+4GM) ON MONDAYS TAKES 11GM (10GM +1GM) ON TUESDAYS Immune Globulin,Gamma(IgG) 4 Gm/20 Ml Vial, 4 GM INJ FRIDAY, (Reported) TAKES 14GM (10GM+4GM) ON MONDAYS TAKES 11GM (10GM +1GM) ON TUESDAYS Levothyroxine Sodium 50 Mcg Tablet, 50 MCG PO HS, (Reported) Lipase/Protease/Amylase 1 Each Capsule.dr, 3 CAP PO TIDWM, (Reported) Lipase/Protease/Amylase 1 Each Capsule.dr, 2 CAP PO WITH SNACKS, (Reported) Meloxicam 15 Mg Tablet, 15 MG PO DAILY, (Reported) Multivitamin 1 Each Tablet, 2 TAB PO DAILY, (Reported) Omeprazole 40 Mg Capsule.dr, 40 MG PO DAILY, (Reported) Oxycodone HCl/Acetaminophen 1 Each Tablet, 0.5 EA PO Q6H PRN for PAIN-MODERATE (5-7), (Reported) Oxycodone HCl/Acetaminophen 1 Each Tablet, 1 TAB PO Q4H PRN for PAIN- BREAKTHROUGH Prescribed by: KIRT JAMES on 06/13/20 2342 Pravastatin Sodium 10 Mg Tablet, 10 MG PO HS, (Reported) Prednisone 5 Mg Tablet, 5 MG PO DAILY, (Reported) TAKES 15MG (10MG +5MG) DAILY Prednisone 10 Mg Tab, 15 MG PO DAILY, (Reported) TAKES 15MG (10MG +5MG) DAILY Prednisone 20 Mg Tab, 20 MG PO DAILY Prescribed by: ALCON QUINTERO on 04/27/20 1727 Pyridostigmine [place] 60 Mg Tab, 60 MG PO TID, (Reported) Pyridoxine HCl 100 Mg Tablet, 100 MG PO DAILY, (Reported) Ropinirole HCl 0.5 Mg Tablet, 0.5 MG PO HS, (Reported) Spironolactone 25 Mg Tablet, 25 MG PO DAILY, (Reported) Temazepam 30 Mg Capsule, 30 MG PO HS PRN for SLEEP, (Reported) Terbinafine HCl 250 Mg Tablet, 250 MG PO DAILY, (Reported) Patient Home Medication List Home Medication List Reviewed: Yes Review of Systems Review of Systems Constitutional: No chills, No fever, No malaise Eyes: Denies Blindness, Denies Drainage Ears, Nose, Mouth, Throat: see HPI; denies ear pain Respiratory: No cough, No short of breath Cardiovascular: No edema, No palpitations Gastrointestinal: No abdominal pain, No nausea, No vomiting Genitourinary: No discharge, No dysuria Musculoskeletal: see HPI, back pain (chronic), neck pain (chronic) All Other Systems Reviewed Negative Unless Noted: Yes Past Jxfjprs-Xiarhu-Luesgo Hx Patient Social History Alcohol Use: Denies Use Recreational Drug Use: No Smoking Status: Never a Smoker 2nd Hand Smoke Exposure: No Recent Foreign Travel: No Contact w/Someone Who Travel: No Recent Hopitalizations: No Immunizations Up To Date Date of Pneumonia Vaccine: Aug 18, 2012 Date of Influenza Vaccine: Jul 06, 2015 Seasonal Allergies Seasonal Allergies: No Past Medical History Surgeries: Yes (ORIF left hip, right shoulder sx, cholecystectomy, spleenectomy) Gallbladder, Orthopedic Respiratory: Yes Pneumonia Currently Using CPAP: No Currently Using BIPAP: No Cardiac: Yes Neurological: Yes (MYASTHENIA GRAVIS) Reproductive Disorders: No Female Reproductive Disorders: Denies Sexually Transmitted Disease: No HIV/AIDS: No Genitourinary: No Gastrointestinal: Yes (GASTRITIS, MALNUTRITION, GASTRIC BYPASS, STOMACH STAPLING) Pancreatitis, Chronic Diarrhea Musculoskeletal: Yes (Kyphoplasty vertebrae of compression fx) Osteoporosis, Fractures Endocrine: No HEENT: Yes Tonsilitis Loss of Vision: Denies Hearing Impairment: Denies Cancer: No Psychosocial: Yes Anxiety Integumentary: No Blood Disorders: No Adverse Reaction/Blood Tranf: No Family Medical History Diabetes mellitus 19 MOTHER FH: lung cancer 19 FATHER No Pertinent Family Hx Physical Exam Vital Signs Vital Signs - First Documented 06/13/20 21:57 Temp 36.2 Pulse 70 Resp 16 B/P (MAP) 137/88 (104) Pulse Ox 99 O2 Delivery Room Air Capillary Refill : Height, Weight, BMI Height: 5'5.00" Weight: 113lbs. 0oz. 51.405981da; 17.00 BMI Method:Stated General Appearance: WD/WN, mild distress HEENT: PERRL/EOMI, TMs normal, pharynx normal, other (ear exam tender to manipulation. Small abrasion on the pinna and right forehead. Decreased hearing on the right side.) Neck: full range of motion, normal inspection, tender midline Cardiovascular: normal peripheral pulses, regular rate, rhythm Respiratory: lungs clear, normal breath sounds, no respiratory distress, no accessory muscle use Peripheral Pulses: 2+ Dorsalis Pedis (R), 2+ Left Dors-Pedis (L), 2+ Radial Pulses (R), 2+ Radial Pulses (L) Back: normal inspection, no vertebral tenderness Extremities: normal range of motion, non-tender, normal capillary refill, other (minor superficial abrasions right anterior knee. Right hand fifth metacarpal tender to palpation without deformity or swelling.) Neurologic/Psychiatric: No no motor/sensory deficits (decreased hearing on the right side); alert, normal mood/affect, oriented x 3, other (superficial laceration over the right eyebrow. 2 cm long.) Hitesh Coma Score Best Eye Response: (4) Open Spontaneously Best Verbal Response: (5) Oriented Best Motor Response: (6) Obeys Commands Hitesh Total: 15 Procedures/Interventions Suture Size: 4-0 Progress/Results/Core Measures Results/Orders Lab Results Laboratory Tests Test 06/13/20 23:10 Range/Units White Blood Count 6.3 4.3-11.0 10^3/uL Red Blood Count 3.50 L 4.35-5.85 10^6/uL Hemoglobin 11.4 L 11.5-16.0 G/DL Hematocrit 36 35-52 % Mean Corpuscular Volume 103 H 80-99 FL Mean Corpuscular Hemoglobin 33 25-34 PG Mean Corpuscular Hemoglobin Concent 32 32-36 G/DL Red Cell Distribution Width 15.0 H 10.0-14.5 % Platelet Count 321 130-400 10^3/uL Mean Platelet Volume 10.1 7.4-10.4 FL Immature Granulocyte % (Auto) 0 % Neutrophils (%) (Auto) 84 H 42-75 % Lymphocytes (%) (Auto) 14 12-44 % Monocytes (%) (Auto) 1 0-12 % Eosinophils (%) (Auto) 0 0-10 % Basophils (%) (Auto) 1 0-10 % Neutrophils # (Auto) 5.3 1.8-7.8 X 10^3 Lymphocytes # (Auto) 0.9 L 1.0-4.0 X 10^3 Monocytes # (Auto) 0.1 0.0-1.0 X 10^3 Eosinophils # (Auto) 0.0 0.0-0.3 10^3/uL Basophils # (Auto) 0.1 0.0-0.1 10^3/uL Immature Granulocyte # (Auto) 0.0 0.0-0.1 10^3/uL Sodium Level 137 135-145 MMOL/L Potassium Level 5.1 H 3.6-5.0 MMOL/L Chloride Level 106 98-107 MMOL/L Carbon Dioxide Level 19 L 21-32 MMOL/L Anion Gap 12 5-14 MMOL/L Blood Urea Nitrogen 26 H 7-18 MG/DL Creatinine 1.16 0.60-1.30 MG/DL Estimat Glomerular Filtration Rate 46 BUN/Creatinine Ratio 22 Glucose Level 115 H 70-105 MG/DL Calcium Level 8.6 8.5-10.1 MG/DL Corrected Calcium 8.8 8.5-10.1 MG/DL Total Bilirubin 0.3 0.1-1.0 MG/DL Aspartate Amino Transf (AST/SGOT) 76 H 5-34 U/L Alanine Aminotransferase (ALT/SGPT) 52 0-55 U/L Alkaline Phosphatase 164 H 40-136 U/L Total Protein 6.5 6.4-8.2 GM/DL Albumin 3.8 3.2-4.5 GM/DL My Orders Orders - KIRT JAMES Fentanyl Injection (Sublimaze Injection (06/13/20 22:15) Ct Head/Face/Cervical Wo (06/13/20 22:06) Hand 3 View Right (06/13/20 22:06) Cbc With Automated Diff (06/13/20 22:06) Comprehensive Metabolic Panel (06/13/20 22:06) Hydralazine Injection (Apresoline Inject (06/13/20 22:15) Fentanyl Injection (Sublimaze Injection (06/13/20 23:00) Fentanyl Injection (Sublimaze Injection (06/13/20 23:00) Rx-Oxycodone/Apap 5-325 Mg (Rx-Percocet (06/13/20 23:45) Medications Given in ED Current Medications Medications Dose Ordered Sig/Lola Route Start Time Stop Time Status Last Admin Dose Admin Fentanyl Citrate 100 mcg ONCE ONCE IM 06/13/20 23:00 10/27/20 23:01 DC 06/13/20 22:51 100 MCG Oxycodone/ Acetaminophen 1 ea Q4H PRN PO 06/13/20 23:45 06/13/20 23:47 DC 06/13/20 23:47 1 EA Vital Signs/I&O 06/13/20 06/13/20 21:57 23:47 Temp 36.2 Pulse 70 76 Resp 16 16 B/P (MAP) 137/88 (104) 126/82 (104) Pulse Ox 99 99 O2 Delivery Room Air Room Air Progress Progress Note #1: Time: 22:[address] of the head maxillofacial and C-spine. Basic labs and 50 g of fentanyl for her discomfort. X-ray of the right hand. She declined imaging of her right knee. Progress Note #2: Time: 22:48 Progress Note Nursing staff made several attempts at an IV unsuccessfully. We're going to just give her 100 g fentanyl IM. Diagnostic Imaging Diagonstic Imaging: Xray Plain Films/CT/US/NM/MRI: hand (right) Comments No acute osseous fracture. Healing fracture in the fifth metacarpal right hand. Reviewed: Reviewed by Me Diagonstic Imaging: CT (without IV contrast) Plain Films/CT/US/NM/MRI: facial bones, c-spine, head Comments No acute intracranial hemorrhage, mass effect, midline shift or tumor. No calvarial fractures. No fracture or acute malalignment of the cervical spine. Prior MRI from 2 weeks ago demonstrated C4 over C5 retrolisthesis. Acute, relatively nondisplaced nasal fractures. Reviewed: Reviewed Night [facility] Study, Reviewed by Me Departure Impression Primary Impression: Fall Qualified Codes: W19.XXXA - Unspecified fall, initial encounter Additional Impressions: Nasal bones, closed fracture Qualified Codes: S02.2XXA - Fracture of nasal bones, initial encounter for closed fracture Abrasion of right eyebrow Qualified Codes: S00.211A - Abrasion of right eyelid and periocular area, initial encounter Disposition: HOME, SELF-CARE Condition: Stable Departure-Patient Inst. Decision time for Depature: 23:25 Referrals: SELF,HAILEY TORRES (PCP/Family) Primary Care Physician Patient Instructions: Nose Fracture (DC), Preventing Falls Add. Discharge Instructions: An ice pack applied directly to your nose can help with pain. Tylenol, Motrin and Percocet 1 tablet every 6 hours as necessary for br eakthrough pain. if you're still having significant discomfort after 3 days you may follow-up with your primary care doctor for reevaluation. All discharge instructions reviewed with patient and/or family. Voiced understanding. Scripts Oxycodone HCl/Acetaminophen (Percocet 5-325 mg Tablet) 1 Each Tablet 1 TAB PO Q4H PRN for PAIN-BREAKTHROUGH MDD 6 TABS for 4 Days, #20 TAB 0 Refills Prov: KIRT JAMES 06/13/20 KIRT JAMES Jun 13, 2020 22:10
[2020-06-13] MEDS ORDERED: hydrALAZINE (APESOLINE) 20 MG/ML VIAL IV ONE (22:15)
[2020-06-13] MEDS ORDERED: fentaNYL INJECTION 100 MCG/2 ML AMP IVP ONE ×2 (22:15→23:00)
[2020-06-13] MEDS ORDERED: fentaNYL INJECTION 100 MCG/2 ML AMP IM ONE (23:00)
[2020-06-13 23:28] LABS: BASOPHILS % (AUTO) 1 % (0-10); EOSINOPHILS % (AUTO) 0 % (0-10); HEMATOCRIT 36 % (35-52); HEMOGLOBIN 11.4 G/DL (11.5-16.0); LYMPHOCYTES # (AUTO) 0.9 X 10^3 (1.0-4.0); LYMPHOCYTES % (AUTO) 14 % (12-44); MEAN CORPUSCULAR HEMOGLOBIN 33 PG (25-34); MEAN CORPUSCULAR HGB CONC 32 G/DL (32-36); MEAN CORPUSCULAR VOLUME 103 FL (80-99); MEAN PLATELET VOLUME 10.1 FL (7.4-10.4); MONOCYTES # (AUTO) 0.1 X 10^3 (0.0-1.0); MONOCYTES % (AUTO) 1 % (0-12); NEUTROPHILS # (AUTO) 5.3 X 10^3 (1.8-7.8); NEUTROPHILS % (AUTO) 84 % (42-75); PLATELET COUNT 321 10^3/uL (130-400); WHITE BLOOD COUNT 6.3 10^3/uL (4.3-11.0)
[2020-06-13 23:29] LABS: BASOPHILS # (AUTO) 0.1 10^3/uL (0.0-0.1)
[2020-06-13] MEDS ORDERED: OXYC1TAB87 PO (23:42)
[2020-06-13] MEDS ORDERED: RX-OXYCODONE/APAP 5-325 MG #4 TAB PK PO PRN (23:45)
[2020-06-13 23:47] VITALS: BP 126/82
[2020-06-13 23:51] LABS: ALBUMIN 3.8 GM/DL (3.2-4.5); BILIRUBIN,TOTAL 0.3 MG/DL (0.1-1.0); CALCIUM 8.6 MG/DL (8.5-10.1); CREATININE SERUM 1.16 MG/DL (0.60-1.30); POTASSIUM 5.1 MMOL/L (3.6-5.0); TOTAL PROTEIN 6.5 GM/DL (6.4-8.2)
--- NOTE | 2020-06-14 06:17 | Diagnostic Imaging Report ---
INDICATION: Fall. Right hand pain. Comparison with 04/01/2020. FINDINGS: There is an old healing fracture noted within the 5th metacarpal which shows good alignment. There are no acute fractures. There is advanced arthritic disease noted throughout the hand. Most advanced arthritic change is noted at the 1st CORRECTION joint. IMPRESSION: 1. No acute abnormalities. 2. Healing fracture 5th metacarpal. Dictated by: Dictated on workstation # [id number]
--- NOTE | 2020-06-14 07:24 | Diagnostic Imaging Report ---
PROCEDURE: CT head, face, and cervical spine without contrast. TECHNIQUE: Multiple contiguous axial images were obtained through the head, neck, and facial bones without the use of intravenous contrast. Sagittal and coronal reformations through the cervical spine and facial bones were also performed. Auto Exposure Controls were utilized during the CT exam to meet ALARA standards for radiation dose reduction. INDICATION: Fall. Head and neck pain. Comparison with CT head of 04/27/2020. FINDINGS: CT HEAD: No evidence of intracranial hemorrhage or mass effect. No extra-axial fluid collection. Basal cisterns are clear. CP angles are normal. The mastoid air cells and paranasal sinuses are clear. No calvarial fractures. IMPRESSION: Negative CT head without contrast. CT FACIAL BONES: Coronal and sagittal images show good aeration of the paranasal sinuses. There are no fractures demonstrated. Nasal septum is midline. Orbital rims are intact. Zygomatic arches appear normal. IMPRESSION: Negative facial bones. CT cervical spine: Good alignment. There is advanced disc disease at C3-C7 with loss of disc space height with large bridging osteophyte. Considerable hypertrophic change noted along the uncovertebral joints especially at C3-C4 and C4-C5 causing moderate spinal stenosis and encroachment upon the foramen. The atlantoaxial joint normal. Facets show good alignment with moderate hypertrophic change. There are no fractures. Prevertebral soft tissues are not widened. IMPRESSION: Advanced cervical spondylosis with hypertrophic changes. No acute abnormalities. Findings are concordant with the preliminary report. Dictated by: Dictated on workstation # [id number]
== END 2020-06-13 23:47 | disposition home or self-care (01) ==
LOC: EDUNIT# 21:53 → ER FS 21:55
DX: S02.2XXA Fracture of nasal bones, initial encounter for closed fracture (principal); S01.111A Laceration without foreign body of right eyelid and periocular area, initial encounter; S80.211A Abrasion, right knee, initial encounter; S62.306D Unspecified fracture of fifth metacarpal bone, right hand, subsequent encounter for fracture with routine healing; F41.9 Anxiety disorder, unspecified; G70.00 Myasthenia gravis without (acute) exacerbation; M81.0 Age-related osteoporosis without current pathological fracture; R40.2360 Coma scale, best motor response, obeys commands, unspecified time; R40.2140 Coma scale, eyes open, spontaneous, unspecified time; R40.2250 Coma scale, best verbal response, oriented, unspecified time; Z88.8 Allergy status to other drugs, medicaments and biological substances; Z87.01 Personal history of pneumonia (recurrent); Z87.81 Personal history of (healed) traumatic fracture; Z98.84 Bariatric surgery status; Z79.52 Long term (current) use of systemic steroids; Z79.890 Hormone replacement therapy; Z83.3 Family history of diabetes mellitus; Z80.1 Family history of malignant neoplasm of trachea, bronchus and lung; W18.09XA Striking against other object with subsequent fall, initial encounter; Y92.093 Driveway of other non-institutional residence as the place of occurrence of the external cause
CPT/HCPCS: 36415; 70450; 70486; 72125; 73130; 80053; 85025

== ENCOUNTER 2020-08-02 07:09 | Emergency (ER) | payer MEDICARE, OTHER ==
[~2020-08-02] VITALS: Ht 165 cm; Wt 49.8 kg
[~2020-08-02 07:09] MED LIST changes: +OXYC1TAB87 PO
--- NOTE | 2020-08-02 07:18 | ED Fall/Injury ---
General Stated Complaint: FALL; LT HIP INJ Source: patient, EMS History of Present Illness Date Seen by Provider: Aug 02, 2020 Time Seen by Provider: 07:13 Initial Comments 69-year-old female presents following a fall out of bed. Patient complains of p ain in her "pelvis" and left hip. Patient denies any other injuries. Patient reports she just rolled out of bed while sleeping. Patient did not hit her head, has no chest pain or other systemic complaints. She does have a history of frequent falls and has numerous well-healing skin tears. Allergies and Home Medications Allergies Coded Allergies: diphenhydramine (Verified Allergy, Intermediate, MUSCLE PAIN; AGITATION, 06/09/19) promethazine (Verified Allergy, Mild, AGITATION, 06/09/19) Home Medications Abaloparatide 1.56 Ml Pen.injctr, 80 MCG SC HS, (Reported) Calcium Citrate/Vitamin D3 1 Each Tablet, 2 TAB.CHEW PO TIDWM, (Reported) 500MG/400 UNITS Carvedilol 3.125 Mg Tablet, 3.125 MG PO BID, (Reported) HOLD FOR HR <55 BPM OR SBP<95 Cyanocobalamin (Vitamin B-12) 500 Mcg Tablet, 500 MCG PO DAILY, (Reported) Duloxetine HCl 60 Mg Capsule.dr, 60 MG PO DAILY, (Reported) Fentanyl 1 Each Patch.td72, 25 MCG TD Q72H, (Reported) Gabapentin 300 Mg Capsule, 300 MG PO QID, (Reported) Immune Globulin,Gamma(IgG) 1 Gm/5 Ml Vial, 1 MG INJ FRIDAY, (Reported) TAKES 14GM (10GM+4GM) ON MONDAYS TAKES 11GM (10GM +1GM) ON TUESDAYS Immune Globulin,Gamma(IgG) 10 Gm/50 Ml Vial, 10 GM INJ , (Reported) TAKES 14GM (10GM+4GM) ON MONDAYS TAKES 11GM (10GM +1GM) ON TUESDAYS Immune Globulin,Gamma(IgG) 4 Gm/20 Ml Vial, 4 GM INJ FRIDAY, (Reported) TAKES 14GM (10GM+4GM) ON MONDAYS TAKES 11GM (10GM +1GM) ON TUESDAYS Levothyroxine Sodium 50 Mcg Tablet, 50 MCG PO HS, (Reported) Lipase/Protease/Amylase 1 Each Capsule.dr, 3 CAP PO TIDWM, (Reported) Lipase/Protease/Amylase 1 Each Capsule.dr, 2 CAP PO WITH SNACKS, (Reported) Meloxicam 15 Mg Tablet, 15 MG PO DAILY, (Reported) Multivitamin 1 Each Tablet, 2 TAB PO DAILY, (Reported) Omeprazole 40 Mg Capsule.dr, 40 MG PO DAILY, (Reported) Oxycodone HCl/Acetaminophen 1 Each Tablet, 0.5 EA PO Q6H PRN for PAIN-MODERATE (5-7), (Reported) Oxycodone HCl/Acetaminophen 1 Each Tablet, 1 TAB PO Q4H PRN for PAIN- BREAKTHROUGH Prescribed by: KIRT JAMES on 06/13/20 2342 Pravastatin Sodium 10 Mg Tablet, 10 MG PO HS, (Reported) Prednisone 5 Mg Tablet, 5 MG PO DAILY, (Reported) TAKES 15MG (10MG +5MG) DAILY Prednisone 10 Mg Tab, 15 MG PO DAILY, (Reported) TAKES 15MG (10MG +5MG) DAILY Prednisone 20 Mg Tab, 20 MG PO DAILY Prescribed by: ALCON QUINTERO on 04/27/20 1727 Pyridostigmine [place] 60 Mg Tab, 60 MG PO TID, (Reported) Pyridoxine HCl 100 Mg Tablet, 100 MG PO DAILY, (Reported) Ropinirole HCl 0.5 Mg Tablet, 0.5 MG PO HS, (Reported) Spironolactone 25 Mg Tablet, 25 MG PO DAILY, (Reported) Temazepam 30 Mg Capsule, 30 MG PO HS PRN for SLEEP, (Reported) Terbinafine HCl 250 Mg Tablet, 250 MG PO DAILY, (Reported) Patient Home Medication List Home Medication List Reviewed: Yes Review of Systems Review of Systems Constitutional: No chills, No fever Eyes: No Symptoms Reported Ears, Nose, Mouth, Throat: no symptoms reported Respiratory: No cough, No short of breath Cardiovascular: No chest pain, No palpitations Gastrointestinal: No abdominal pain, No nausea, No vomiting Musculoskeletal: see HPI Skin: see HPI Psychiatric/Neurological: No Symptoms Reported Past Rymadwb-Ffrlft-Waehwn Hx Past Med/Social Hx: Reviewed Nursing Past Med/Soc Hx Patient Social History 2nd Hand Smoke Exposure: No Recent Hopitalizations: No Immunizations Up To Date Date of Pneumonia Vaccine: Aug 18, 2012 Date of Influenza Vaccine: Jul 06, 2015 Seasonal Allergies Seasonal Allergies: No Past Medical History Surgeries: Yes (ORIF left hip, right shoulder sx, cholecystectomy, spleenectomy) Gallbladder, Orthopedic Respiratory: Yes Pneumonia Currently Using CPAP: No Currently Using BIPAP: No Cardiac: Yes Neurological: Yes (MYASTHENIA GRAVIS) Reproductive Disorders: No Female Reproductive Disorders: Denies Sexually Transmitted Disease: No HIV/AIDS: No Genitourinary: No Gastrointestinal: Yes (GASTRITIS, MALNUTRITION, GASTRIC BYPASS, STOMACH STAPLING) Pancreatitis, Chronic Diarrhea Musculoskeletal: Yes (Kyphoplasty vertebrae of compression fx) Osteoporosis, Fractures Endocrine: No HEENT: Yes Tonsilitis Loss of Vision: Denies Hearing Impairment: Denies Cancer: No Psychosocial: Yes Anxiety Integumentary: No Blood Disorders: No Adverse Reaction/Blood Tranf: No Family Medical History Diabetes mellitus 19 MOTHER FH: lung cancer 19 FATHER No Pertinent Family Hx Physical Exam Vital Signs Vital Signs - First Documented Capillary Refill : Height, Weight, BMI Height: 5'5.00" Weight: 113lbs. 0oz. 51.809518mp; 18.00 BMI Method:Stated General Appearance: no apparent distress, cachetic, thin HEENT: PERRL/EOMI, pharynx normal Neck: full range of motion, supple Respiratory: lungs clear, normal breath sounds Gastrointestinal: non tender, soft Extremities: other (patient has some mild tenderness in the generalized hip area but no pinpoint tenderness I was able to lift her legs and go through range of motion with minimal and no tenderness.) Neurologic/Psychiatric: paramedic rn II-XII nml as tested, oriented x 3, depressed affect, other (withdrawn doesn't answer a lot of questions) Skin: other (multiple scabs over her body with other multiple healing skin avulsions/abrasions of varying age) Procedures/Interventions Suture Size: 4-0 Progress/Results/Core Measures Results/Orders My Orders Orders - HALLEY LONG DO Chest 1 View Ap/Pa Only (08/02/20 07:18) Pelvis With Left Hip 2-3 View (08/02/20 07:18) Vital Signs/I&O 08/02/20 08/02/20 07:10 07:10 Temp 35.8 35.8 35.8 Pulse 54 54 Resp 16 16 B/P (MAP) 128/67 (87) 128/67 (87) Pulse Ox 98 98 O2 Delivery Room Air Room Air Diagnostic Imaging Diagonstic Imaging: Xray Plain Films/CT/US/NM/MRI: chest, pelvis, hip Comments [facility] [place], [place] NAME: JACK CARDONA [employer] [facility] REC#: [id number] PT STATUS: REG ER : 1950 PHYSICIAN: HALLEY LONG DO ADMIT DATE: 08/02/20/ER FS Draft Date of Exam:08/02/20 PELVIS WITH LEFT HIP 2-3 VIEW INDICATION: Fall. Left hip pain. FINDINGS: 5 views. There is a long stem gamma nail in good position left femur. There is a old healed trochanteric fracture. No evidence of hardware complication. No acute fractures are noted. Moderate degenerative change noted of the hip. IMPRESSION: 1. The gamma nail present without hardware complication. No evidence of acute fractures. [facility] [place] [place] NAME: JACK CARDONA [facility] REC#: [id number] PT STATUS: REG ER : 1950 PHYSICIAN: HALLEY LONG DO ADMIT DATE: 08/02/20/ER FS Draft Date of Exam:08/02/20 CHEST 1 VIEW AP/PA ONLY INDICATION: Fall. Comparison with 04/17/2020. FINDINGS: Portable chest. The lungs are well-aerated and clear. No pneumothorax or pleural effusion. There is mild cortical irregularity along the distal right 3rd rib. Heart is not enlarged. No pulmonary edema. There is a old fracture of the distal right clavicle and humerus. IMPRESSION: Irregularity of the distal right 3rd rib likely representing old healed deformity as well as a right clavicular and humeral healed fractures. Reviewed: Reviewed by Me, Reviewed/Discussed Departure Impression Primary Impression: Fall from bed, initial encounter Additional Impression: Chronic hip pain after total replacement of left hip joint Disposition: 01 HOME, SELF-CARE Condition: Stable Departure-Patient Inst. Referrals: POOJA GORDON MD (PCP/Family) Primary Care Physician Patient Instructions: Chronic Pain Add. Discharge Instructions: Follow-up with Dr. Gordon as needed HALLEY LONG DO Aug 02, 2020 07:18
[2020-08-02] MEDS ORDERED: OXYC-471 (07:55)
[2020-08-02] MEDS ORDERED: MORP-68 (07:55)
--- NOTE | 2020-08-02 07:59 | Diagnostic Imaging Report ---
INDICATION: Fall. Comparison with 04/17/2020. FINDINGS: Portable chest. The lungs are well-aerated and clear. No pneumothorax or pleural effusion. There is mild cortical irregularity along the distal right 3rd rib. Heart is not enlarged. No pulmonary edema. There is a old fracture of the distal right clavicle and humerus. IMPRESSION: Irregularity of the distal right 3rd rib likely representing old healed deformity as well as a right clavicular and humeral healed fractures. Dictated by: Dictated on workstation # [id number]
--- NOTE | 2020-08-02 08:00 | Diagnostic Imaging Report ---
INDICATION: Fall. Left hip pain. FINDINGS: 5 views. There is a long stem gamma nail in good position left femur. There is a old healed trochanteric fracture. No evidence of hardware complication. No acute fractures are noted. Moderate degenerative change noted of the hip. IMPRESSION: 1. The gamma nail present without hardware complication. No evidence of acute fractures. Dictated by: Dictated on workstation # [id number]
[2020-08-02 08:39] VITALS: BP 95/55
== END 2020-08-02 08:39 | disposition home or self-care (01) ==
LOC: EDUNIT# 07:09 → ER FS 07:10
DX: T84.84XA Pain due to internal orthopedic prosthetic devices, implants and grafts, initial encounter (principal); F41.9 Anxiety disorder, unspecified; F32.9 Major depressive disorder, single episode, unspecified; Z80.1 Family history of malignant neoplasm of trachea, bronchus and lung; Z96.642 Presence of left artificial hip joint; Z83.3 Family history of diabetes mellitus; Z88.8 Allergy status to other drugs, medicaments and biological substances; Z79.52 Long term (current) use of systemic steroids
CPT/HCPCS: 71045; 73502

== ENCOUNTER 2020-12-15 21:07 | Emergency (ER) | payer MEDICARE, OTHER ==
[~2020-12-15] VITALS: Ht 165.1 cm; Wt 50.0 kg
[~2020-12-15 21:07] MED LIST changes: +CALC600T91 PO; -CLC600T PO; +MORP-68; +OXYC1TAB11
[2020-12-15] MEDS ORDERED: fentaNYL INJ 100 MCG/2 ML AMP IVP ONE (21:30)
[2020-12-15] MEDS ORDERED: ONDANSETRON 4 MG/2 ML (SDV) Z0FRAN IVP ONE (21:30)
[2020-12-15] MEDS ORDERED: NS IV 1000 ML 1,000 ML IV SCH (21:30)
--- NOTE | 2020-12-15 21:39 | Diagnostic Imaging Report ---
INDICATION: Shortness of breath. Frontal chest obtained at 9:14 p.m. and compared to 08/02/2020. Heart and mediastinal silhouette are normal in appearance. The lungs appear clear except for some scarring or atelectasis in the right base. There is no pneumothorax or pleural fluid. There is an old right clavicle fracture. IMPRESSION: Poor inspiration with some right basilar scarring or atelectasis. No consolidation or pleural fluid. Dictated by: Dictated on workstation # [id number]
[2020-12-15 21:52] LABS: BASOPHILS % (AUTO) 0 % (0-10); EOSINOPHILS % (AUTO) 0 % (0-10); HEMATOCRIT 47 % (35-52); HEMOGLOBIN 14.8 G/DL (11.5-16.0); LYMPHOCYTES % (AUTO) 9 % (12-44); MEAN CORPUSCULAR HEMOGLOBIN 32 PG (25-34); MEAN CORPUSCULAR HGB CONC 31 G/DL (32-36); MEAN CORPUSCULAR VOLUME 102 FL (80-99); MEAN PLATELET VOLUME 9.8 FL (7.4-10.4); MONOCYTES % (AUTO) 2 % (0-12); NEUTROPHILS % (AUTO) 88 % (42-75); PLATELET COUNT 331 10^3/uL (130-400); WHITE BLOOD COUNT 15.9 10^3/uL (4.3-11.0)
[2020-12-15 21:53] LABS: BASOPHILS # (AUTO) 0.1 10^3/uL (0.0-0.1); EOSINOPHILS # (AUTO) 0.1 10^3/uL (0.0-0.3); LYMPHOCYTES # (AUTO) 1.4 X 10^3 (1.0-4.0); MONOCYTES # (AUTO) 0.3 X 10^3 (0.0-1.0)
[2020-12-15 22:12] LABS: ALANINE AMINOTRANSFERASE 32 U/L (0-55); ALKALINE PHOSPHATASE 99 U/L (40-136); BILIRUBIN,TOTAL 0.4 MG/DL (0.1-1.0); BUN/CREATININE RATIO 22; CALCIUM 8.4 MG/DL (8.5-10.1); CARBON DIOXIDE 20 MMOL/L (21-32); CHLORIDE 101 MMOL/L (98-107); CREATININE SERUM 1.62 MG/DL (0.60-1.30); GFR ESTIMATED 31; GLUCOSE 140 MG/DL (70-105); POTASSIUM 5.4 MMOL/L (3.6-5.0); SODIUM 133 MMOL/L (135-145); TOTAL PROTEIN 5.7 GM/DL (6.4-8.2)
[2020-12-15 22:19] LABS: BAND NEUTROPHILS 1 %; LYMPHOCYTES % (MANUAL) 9 %; MONOCYTES % (MANUAL) 14 %; NEUTROPHILS % (MANUAL) 76 %; TOXIC GRANULATION/VACUOLAZATIO 4+
[2020-12-15] MEDS ORDERED: FUROSEMIDE 40 MG/4 ML INJ (LASIX) IVP ONE (23:15)
[2020-12-15 23:29] LABS: AMORPHOUS SEDIMENT,UR LARGE AMOR PHOSPHATE /LPF; BACTERIA,URINE MODERATE /HPF; BILIRUBIN,URINE 1+ (NEGATIVE); CLARITY,URINE CLEAR; COLOR,URINE DARK YELLOW; GLUCOSE, URINE (UA) NEGATIVE (NEGATIVE); KETONES,URINE NEGATIVE (NEGATIVE); LEUKOCYTE ESTERASE ,URINE NEGATIVE (NEGATIVE); NITRITE,URINE NEGATIVE (NEGATIVE); PROTEIN,URINE NEGATIVE (NEGATIVE); WBC,URINE 0-2 /HPF
[2020-12-15 23:30] LABS: GRANULAR CASTS,URINE 0-2 /LPF
[2020-12-15] MEDS ORDERED: cefTRIAXone FOR IV USE 1,000 MG in WATER (STERILE) FOR INJECTION 10 ML IV ONE (23:45)
[2020-12-16] MEDS ORDERED: KETOROLAC 30 MG/ML VIAL IVP ONE (00:15)
[2020-12-16] MEDS ORDERED: PIPERACILLIN SODIUM/TAZOBACTAM 4.5 GM in NS (IVPB) 100 ML IV ONE (00:30)
--- NOTE | 2020-12-16 00:32 | ED Abdominal Pain ---
General Chief Complaint: Respiratory Problems Stated Complaint: DIFFICULTY BREATHING Nursing Triage Note: Pt in per [facility] with SOB abd abd pain, feeding tube inserted yesterday at . Pt arrived with breathing treatment in process, reports she was lying flat when they arrived. 89-90 RA, 106, 114/76, 20 ga right hand. Sepsis Screen: No Definite Risk Source of Information: Patient Exam Limitations: Other (Poor historian) History of Present Illness Date Seen by Provider: December 16, 2020 Time Seen by Provider: 21:15 Initial Comments Patient is a 70-year-old female with history of myasthenia gravis, congestive heart failure, chronic pancreatitis, cholecystectomy, splenectomy, gastric bypass and recent discharge from [facility] yesterday for PEG tube placement who presents with diffuse abdominal pain with increased pain medication requirements and shortness of breath today while at home today. Patient states she has been taking oxycodone every 2 hours for the past several hours throughout the day. On EMS arrival, the patient is was reportedly obtunded with mild respiratory depression with an O2 saturation of 88 to 90% on room air. Patient is more dyspneic when supine. Patient was placed on 2 L of oxygen during transport. She does not have a home O2 requirement. On ED arrival, the patient is patient is tachycardic, rate 106 and normotensive. She appears to be in moderate distress secondary to abdominal pain and mildly obtunded secondary to pain medication. She currently denies nausea vomiting diarrhea or bloody stools,. Denies chest pain she denies fevers chills, nausea vomiting or sweats. No urinary frequency urgency or dysuria. No other acute symptoms or complaints. Timing/Duration: 1 Day Severity/Quality: Severe Location: Generalized Abdomen Radiation: Other Associated Symptoms: Shortness of Air, Other Allergies and Home Medications Allergies Coded Allergies: diphenhydramine (Verified Allergy, Intermediate, MUSCLE PAIN; AGITATION, 06/09/19) promethazine (Verified Allergy, Mild, AGITATION, 06/09/19) Home Medications Abaloparatide 1.56 Ml Pen.injctr, 80 MCG SC HS, (Reported) Calcium Citrate/Vitamin D3 1 Each Tablet, 2 TAB.CHEW PO TIDWM, (Reported) 500MG/400 UNITS Carvedilol 3.125 Mg Tablet, 3.125 MG PO BID, (Reported) HOLD FOR HR <55 BPM OR SBP<95 Cyanocobalamin (Vitamin B-12) 500 Mcg Tablet, 500 MCG PO DAILY, (Reported) Duloxetine HCl 60 Mg Capsule.dr, 60 MG PO DAILY, (Reported) Fentanyl 1 Each Patch.td72, 25 MCG TD Q72H, (Reported) Gabapentin 300 Mg Capsule, 300 MG PO QID, (Reported) Immune Globulin,Gamma(IgG) 1 Gm/5 Ml Vial, 1 MG INJ FRIDAY, (Reported) TAKES 14GM (10GM+4GM) ON MONDAYS TAKES 11GM (10GM +1GM) ON TUESDAYS Immune Globulin,Gamma(IgG) 10 Gm/50 Ml Vial, 10 GM INJ , (Reported) TAKES 14GM (10GM+4GM) ON MONDAYS TAKES 11GM (10GM +1GM) ON TUESDAYS Immune Globulin,Gamma(IgG) 4 Gm/20 Ml Vial, 4 GM INJ FRIDAY, (Reported) TAKES 14GM (10GM+4GM) ON MONDAYS TAKES 11GM (10GM +1GM) ON TUESDAYS Levothyroxine Sodium 50 Mcg Tablet, 50 MCG PO HS, (Reported) Lipase/Protease/Amylase 1 Each Capsule.dr, 3 CAP PO TIDWM, (Reported) Lipase/Protease/Amylase 1 Each Capsule.dr, 2 CAP PO WITH SNACKS, (Reported) Meloxicam 15 Mg Tablet, 15 MG PO DAILY, (Reported) Multivitamin 1 Each Tablet, 2 TAB PO DAILY, (Reported) Omeprazole 40 Mg Capsule.dr, 40 MG PO DAILY, (Reported) Oxycodone HCl/Acetaminophen 1 Each Tablet, 0.5 EA PO Q6H PRN for PAIN-MODERATE (5-7), (Reported) Oxycodone HCl/Acetaminophen 1 Each Tablet, 1 TAB PO Q4H PRN for PAIN- BREAKTHROUGH Prescribed by: KIRT JAMES on 06/13/20 3282 Pravastatin Sodium 10 Mg Tablet, 10 MG PO HS, (Reported) Prednisone 5 Mg Tablet, 5 MG PO DAILY, (Reported) TAKES 15MG (10MG +5MG) DAILY Prednisone 10 Mg Tab, 15 MG PO DAILY, (Reported) TAKES 15MG (10MG +5MG) DAILY Prednisone 20 Mg Tab, 20 MG PO DAILY Prescribed by: ALCON QUINTERO on 04/27/20 1727 Pyridostigmine [place] 60 Mg Tab, 60 MG PO TID, (Reported) Pyridoxine HCl 100 Mg Tablet, 100 MG PO DAILY, (Reported) Ropinirole HCl 0.5 Mg Tablet, 0.5 MG PO HS, (Reported) Spironolactone 25 Mg Tablet, 25 MG PO DAILY, (Reported) Temazepam 30 Mg Capsule, 30 MG PO HS PRN for SLEEP, (Reported) Terbinafine HCl 250 Mg Tablet, 250 MG PO DAILY, (Reported) Patient Home Medication List Home Medication List Reviewed: Yes Review of Systems Review of Systems Constitutional: see HPI EENTM: See HPI Respiratory: See HPI Cardiovascular: See HPI Gastrointestinal: See HPI Genitourinary: See HPI Musculoskeletal: see HPI Skin: see HPI Psychiatric/Neurological: See HPI Endocrine: See HPI Hematologic/Lymphatic: See HPI All Other Systems Reviewed Negative Unless Noted: Yes Past Ztndcwg-Elagkb-Vepikw Hx Patient Social History Alcohol Use: Denies Use Smoking Status: Never a Smoker 2nd Hand Smoke Exposure: No Recent Infectious Disease Expo: No Recent Hopitalizations: No Immunizations Up To Date Date of Pneumonia Vaccine: Aug 18, 2012 Date of Influenza Vaccine: Jul 06, 2015 Seasonal Allergies Seasonal Allergies: No Past Medical History Surgeries: Yes (ORIF left hip, right shoulder sx, cholecystectomy, spleenectomy) Gallbladder, Orthopedic Respiratory: Yes Pneumonia Currently Using CPAP: No Currently Using BIPAP: No Cardiac: Yes Neurological: Yes (MYASTHENIA GRAVIS) Reproductive Disorders: No Female Reproductive Disorders: Denies Sexually Transmitted Disease: No HIV/AIDS: No Genitourinary: No Gastrointestinal: Yes (GASTRITIS, MALNUTRITION, GASTRIC BYPASS, STOMACH STAPLING) Pancreatitis, Chronic Diarrhea Musculoskeletal: Yes (Kyphoplasty vertebrae of compression fx) Osteoporosis, Fractures Endocrine: No HEENT: Yes Tonsilitis Loss of Vision: Denies Hearing Impairment: Denies Cancer: No Psychosocial: Yes Anxiety Integumentary: No Blood Disorders: No Adverse Reaction/Blood Tranf: No Family Medical History Diabetes mellitus 19 MOTHER FH: lung cancer 19 FATHER No Pertinent Family Hx Physical Exam Vital Signs Vital Signs - First Documented 12/15/20 21:07 Temp 35.8 Pulse 110 Resp 14 B/P (MAP) 113/56 (75) Pulse Ox 97 O2 Delivery Room Air Capillary Refill : Greater Than 3 Seconds Height/Weight/BMI Height: 5'5.00" Weight: 113lbs. 0oz. 51.028201di; 18.00 BMI Method:Stated General Appearance: moderate distress (Secondary to pain) HEENT: PERRL/EOMI, normal ENT inspection, pharynx normal, other (Dry mucous membranes) Neck: supple Respiratory: lungs clear, decreased breath sounds, other (Decreased respiratory effort) Cardiovascular: normal peripheral pulses, tachycardia Gastrointestinal: soft; No abnormal bowel sounds; distended; No guarding; tenderness; No hernia, No mass; other (Mild distention, diffuse tenderness disproportionate on additional exam. Surgical scars present with central surgical wound with PEG tube and placement. Appears to be positioned well with appropriate postsurgical tenderness. Serosanguineous drainage only around insertion site.) Extremities: normal range of motion, non-tender Back: normal inspection, no CVA tenderness Neurologic/Psychiatric: representative II-XII nml as tested, no motor/sensory deficits, alert Skin: normal color Focused Exam Sepsis Stage: Sepsis Possible Source: GI Tract/Intra-Abdominal Lactate Level 12/15/20 21:50: Lactic Acid Level 2.87*H 12/15/20 23:55: Lactic Acid Level 3.55*H Time of Focused Exam: 21:40 Respiratory: Lungs Clear Cardiovascular: Tachycardia Capillary Refill: Less Than 3 Seconds Skin: normal color Lactic Acid Level Laboratory Tests Test 12/15/20 21:50 12/15/20 23:55 Lactic Acid Level 2.87 MMOL/L (0.50-2.00) *H 3.55 MMOL/L (0.50-2.00) *H Within 3hrs of presentation: Admin fluids, Admin ABX, Blood cultures prior to ABX's, Focus exam (IV fluids cautiously given as the patient is normotensive and in congestive heart failure and hypoxic.), Lactate level, Other Procedures/Interventions Suture Size: 4-0 Progress/Results/Core Measures Results/Orders Lab Results Laboratory Tests Test 12/15/20 21:50 12/15/20 23:19 12/15/20 23:55 12/16/20 00:35 Range/Units White Blood Count 15.9 H 4.3-11.0 10^3/uL Red Blood Count 4.67 4.35-5.85 10^6/uL Hemoglobin 14.8 11.5-16.0 G/DL Hematocrit 47 35-52 % Mean Corpuscular Volume 102 H 80-99 FL Mean Corpuscular Hemoglobin 32 25-34 PG Mean Corpuscular Hemoglobin Concent 31 L 32-36 G/DL Red Cell Distribution Width 15.6 H 10.0-14.5 % Platelet Count 331 130-400 10^3/uL Mean Platelet Volume 9.8 7.4-10.4 FL Immature Granulocyte % (Auto) 1 % Neutrophils (%) (Auto) 88 H 42-75 % Lymphocytes (%) (Auto) 9 L 12-44 % Monocytes (%) (Auto) 2 0-12 % Eosinophils (%) (Auto) 0 0-10 % Basophils (%) (Auto) 0 0-10 % Neutrophils # (Auto) 14.0 H 1.8-7.8 X 10^3 Lymphocytes # (Auto) 1.4 1.0-4.0 X 10^3 Monocytes # (Auto) 0.3 0.0-1.0 X 10^3 Eosinophils # (Auto) 0.1 0.0-0.3 10^3/uL Basophils # (Auto) 0.1 0.0-0.1 10^3/uL Immature Granulocyte # (Auto) 0.1 0.0-0.1 10^3/uL Neutrophils % (Manual) 76 % Lymphocytes % (Manual) 9 % Monocytes % (Manual) 14 % Band Neutrophils 1 % Toxic Granulation 4+ Prothrombin Time 15.8 H 12.2-14.7 SEC INR Comment 1.2 0.8-1.4 Activated Partial Thromboplast Time 30 24-35 SEC Sodium Level 133 L 135-145 MMOL/L Potassium Level 5.4 H 3.6-5.0 MMOL/L Chloride Level 101 98-107 MMOL/L Carbon Dioxide Level 20 L 21-32 MMOL/L Anion Gap 12 5-14 MMOL/L Blood Urea Nitrogen 35 H 7-18 MG/DL Creatinine 1.62 H 0.60-1.30 MG/DL Estimat Glomerular Filtration Rate 31 BUN/Creatinine Ratio 22 Glucose Level 140 H 70-105 MG/DL Lactic Acid Level 2.87 *H 3.55 *H 0.50-2.00 MMOL/L Calcium Level 8.4 L 8.5-10.1 MG/DL Corrected Calcium 9.2 8.5-10.1 MG/DL Total Bilirubin 0.4 0.1-1.0 MG/DL Aspartate Amino Transf (AST/SGOT) 45 H 5-34 U/L Alanine Aminotransferase (ALT/SGPT) 32 0-55 U/L Alkaline Phosphatase 99 40-136 U/L Troponin I < 0.30 <0.30 NG/ML Pro-B-Type Natriuretic Peptide 1824.0 H <75.0 PG/ML Total Protein 5.7 L 6.4-8.2 GM/DL Albumin 3.0 L 3.2-4.5 GM/DL Lipase 5 L 8-78 U/L Urine Color DARK YELLOW Urine Clarity CLEAR Urine pH 5.0 5-9 Urine Specific [place] >=1.030 1.016-1.022 Urine Protein NEGATIVE NEGATIVE Urine Glucose (UA) NEGATIVE NEGATIVE Urine Ketones NEGATIVE NEGATIVE Urine Nitrite NEGATIVE NEGATIVE Urine Bilirubin 1+ H NEGATIVE Urine Urobilinogen 0.2 < = 1.0 MG/DL Urine Leukocyte Esterase NEGATIVE NEGATIVE Urine RBC (Auto) NEGATIVE NEGATIVE Urine RBC NONE /HPF Urine WBC 0-2 /HPF Urine Crystals PRESENT H /LPF Urine Amorphous Sediment LARGE [place]ARON PHOSPHATE H /LPF Urine Bacteria MODERATE H /HPF Urine Casts PRESENT /LPF Urine Hyaline Casts 10-25 H /LPF Urine Granular Casts 0-2 H /LPF Urine Mucus NEGATIVE /LPF Urine Culture Indicated YES Blood Gas Puncture Site LEFT WRIST Blood Gas Patient Temperature 35.8 Arterial Blood pH 7.30 *L 7.37-7.43 Arterial Blood Partial Pressure CO2 47 H 35-45 MMHG Arterial Blood Partial Pressure O2 91 79-93 MMHG Arterial Blood HCO3 23 23-27 MMOL/L Arterial Blood Total CO2 24.5 21.0-31.0 MMOL/L Arterial Blood Oxygen Saturation 96 94-100 % Arterial Blood Base Excess -3.5 L -2.5-2.5 MMOL/L Anupam Test N/A Blood Gas Ventilator Setting NO Blood Gas Inspired Oxygen ROOM AIR My Orders Orders - BOB QUINTERO DO Cbc With Automated Diff (12/15/20 21:11) Comprehensive Metabolic Panel (12/15/20 21:11) Troponin I Fs (12/15/20 21:11) Probnp Fs (12/15/20 21:11) Ekg Tracing (12/15/20 21:11) Chest 1 View Ap/Pa Only (12/15/20 21:12) Ns Iv 1000 Ml (Sodium Chloride 0.9%) (12/15/20 21:30) Fentanyl Inj (Sublimaze Injection) (12/15/20 21:30) Ondansetron Injection (Zofran Injectio (12/15/20 21:30) Manual Differential (12/15/20 21:50) Ct Abdomen/Pelvis Wo (12/15/20 21:16) Ua Culture If Indicated (12/15/20 23:02) Lactic Acid Analyzer (12/15/20 23:02) Furosemide Injection (Lasix Injection) (12/15/20 23:15) Urine Culture (12/15/20 23:19) Ceftriaxone For Iv Use (Rocephin For I (12/15/20 23:45) Blood Culture (12/15/20 23:33) Blood Culture (12/15/20 23:55) Ketorolac Injection (Toradol Injection) (12/16/20 00:15) Arterial Blood Gas (12/16/20 00:25) Piperacillin Sodium/Tazobactam (Zosyn Vi (12/16/20 00:30) Lipase (12/16/20 00:38) Heparin Drip 96938 Unit/500ml (Heparin (12/16/20 00:45) Heparin (Bolus Per Protocol) (Heparin (B (12/16/20 00:45) Protime With Inr (12/16/20 00:44) Partial Thromboplastin Time (12/16/20 00:44) Medications Given in ED Current Medications Medications Dose Ordered Sig/Lola Route Start Time Stop Time Status Last Admin Dose Admin Ceftriaxone Sodium 1000 mg/ Sterile Water 10 ml @ 200 mls/hr ONCE ONCE IV 12/15/20 23:45 12/15/20 23:47 DC 12/15/20 23:46 200 MLS/HR Fentanyl Citrate 50 mcg ONCE ONCE IVP 12/15/20 21:30 12/15/20 21:31 DC 12/15/20 21:51 50 MCG Furosemide 40 mg ONCE ONCE IVP 12/15/20 23:15 12/15/20 23:16 DC 12/15/20 23:46 40 MG Ketorolac Tromethamine 15 mg ONCE ONCE IVP 12/16/20 00:15 12/16/20 00:17 DC 12/16/20 00:22 15 MG Ondansetron HCl 4 mg ONCE ONCE IVP 12/15/20 21:30 12/15/20 21:31 DC 12/15/20 21:51 4 MG Vital Signs/I&O 12/15/20 21:07 Temp 35.8 Pulse 110 Resp 14 B/P (MAP) 113/56 (75) Pulse Ox 97 O2 Delivery Room Air Blood Pressure Mean: 75 Departure Communication (Admissions) EKG: Date 12/15/20202136: Sinus tachycardia, rate 106, [place] 124, QRS 74, QTc 391, no acute ST-T wave changes. CT abdomen pelvis without contrast: Midline ventral coronal and pelvic incision scar with skin vanessa and subcutaneous gas and inflamed duration compatible with recent surgery, percutaneous small bowel feeding tube is in place. Post gastric surgery. No bowel obstruction or ileus. Left abdominal wall small bowel wall thickening. Mild ascites. Small amount of intraperitoneal gas compatible with recent surgery. Chronic pancreatitis. Splenectomy and cholecystectomy. Small bilateral pleural effusions Medically complex patient with diffuse abdominal pain with superimposed acute abdominal pain secondary to recent PEG tube placement with elevated white blood cell count and worsening lactic acidosis. Concern for possible sepsis versus ischemic gut. Patient is immune compromised due to splenectomy and chronic daily steroid use. Limited evaluation of abdomen due to noncontrast CT scan. Empiric antibiotic and heparin given. Patient hypoxic and in congestive heart failure. IV fluids cautiously given as the patient is normotensive and in congestive heart failure and hypoxic. Patient received less than the 30mL/kg dose along with single dose of Lasix. Pain controlled proved with single dose of Lasix and Toradol. [facility] contacted for transfer. Dr. Andres echolspts patient at 01:15 to surgical ICU. Critical care time excluding procedures: 35 minutes Impression Primary Impression: Abdominal pain Additional Impressions: Sepsis Congestive heart failure Acute on chronic renal insufficiency Hyperkalemia Hyponatremia Disposition: XF T-[facility] Condition: Critical (Critical care time: 35 minutes) Transfer Transfer Reason: Exceeds level of care Method of Transfer: EMS Departure-Patient Inst. Referrals: POOJA GORDON MD (PCP/Family) Primary Care Physician BOB QUINTERO DO December 16, 2020 00:32
[2020-12-16 00:45] LABS: ABG BASE EXCESS -3.5 MMOL/L (-2.5-2.5); ABG OXYGEN SATURATION 96 % (94-100); ABG PCO2 47 MMHG (35-45); ABG PO2 91 MMHG (79-93); ABG TCO2 24.5 MMOL/L (21.0-31.0); INSPIRED O2 ROOM AIR; PATIENT TEMP 35.8; VENTILATOR NO
[2020-12-16] MEDS ORDERED: HEParin 1000 UNIT/ML (10ML VIAL) FOR BOLUS IV ONE (00:45)
[2020-12-16] MEDS ORDERED: HEParin DRIP 25000 UNIT/500ML 500 ML IV ONE (00:45)
[2020-12-16 01:05] LABS: INR 1.2 (0.8-1.4); PROTHROMBIN TIME PATIENT 15.8 SEC (12.2-14.7)
[2020-12-16 02:02] LABS: AMPHETAMINE SCREEN, URINE NEGATIVE (NEGATIVE); BARBITURATE SCREEN URINE NEGATIVE (NEGATIVE); BENZODIAZEPINES SCREEN URINE POSITIVE (NEGATIVE); CANNABINOID SCREEN, URINE NEGATIVE (NEGATIVE); COCAINE SCREEN URINE NEGATIVE (NEGATIVE); METHADONE STAT NEGATIVE (NEGATIVE); METHAMPHETAMINE SCREEN URINE S NEGATIVE (NEGATIVE); PROPOXYPHENE STAT NEGATIVE (NEGATIVE); TRICYCLIC ANTIDEPRESSANTS SCRE POSITIVE (NEGATIVE)
[2020-12-16 02:03] LABS: OPIATE SCREEN URINE NEGATIVE (NEGATIVE); OXYCODONE STAT POSITIVE (NEGATIVE)
[2020-12-16 02:17] VITALS: BP 76/42
--- NOTE | 2020-12-16 07:26 | Diagnostic Imaging Report ---
PROCEDURE: CT abdomen and pelvis without contrast. TECHNIQUE: Multiple contiguous axial images were obtained through the abdomen and pelvis without the use of intravenous contrast. Auto Exposure Controls were utilized during the CT exam to meet ALARA standards for radiation dose reduction. Indication: Dyspnea and abdominal pain after recently placed jejunostomy tube. Comparison: None. Discussion: Small bilateral pleural effusions are noted with associated atelectasis. Normal heart size. Trace pericardial effusion. The gallbladder and spleen are surgically absent. Changes of chronic pancreatitis are noted. The liver and adrenal glands are unremarkable. No renal stone or hydronephrosis. The aorta is normal in caliber and contains moderate atherosclerotic plaque. Midline incision and skin vanessa are noted. Small amount of free air within the anterior body wall and also the peritoneum consistent with recent surgery. Jejunostomy tube is present and appears to be in good position on this noncontrast exam. Mild free fluid is noted, likely postoperative. No walled off abscess or suspicious fluid collection identified otherwise. Nonobstructive bowel gas pattern. Bowel wall thickening is noted within the small bowel within the left abdomen, likely reactive from recent surgery. Postoperative changes are noted within the spine and left femur. Multiple compression deformities noted throughout the thoracolumbar spine. Old posttraumatic deformity noted involving the left inferior and superior pubic rami. Impression: 1. Postoperative changes as noted consistent with recent jejunostomy tube placement. No acute abnormality identified otherwise. 2. Agree with preliminary report. Dictated by: Dictated on workstation # [id number]
== END 2020-12-16 02:17 | disposition short-term general hospital (02) ==
LOC: EDUNIT# 21:07 → ER FS 21:08
DX: R10.84 Generalized abdominal pain (principal); A41.9 Sepsis, unspecified organism; I50.9 Heart failure, unspecified; N28.9 Disorder of kidney and ureter, unspecified; E87.5 Hyperkalemia; E87.1 Hypo-osmolality and hyponatremia; F41.9 Anxiety disorder, unspecified; Z88.8 Allergy status to other drugs, medicaments and biological substances; Z79.52 Long term (current) use of systemic steroids; Z79.899 Other long term (current) drug therapy
CPT/HCPCS: 36415; 51701; 71045; 74176; 80053; 80306; 81000; 83605; 83690; 83880; 84484; 85007; 85027; 85610; 85730; 87040; 87088; 93005; 96374; 96375; 99291

== ENCOUNTER 2021-03-21 20:52 | Emergency (ER) | payer MEDICARE, OTHER ==
[~2021-03-21 20:52] MED LIST changes: -OMEP40CA27 PO; +OMEP40CA6 PO; -OXYC-464 PO; +OXYC1TAB15 PO
== END 2021-03-21 22:31 | disposition left against medical advice (07) ==
LOC: EDUNIT# 20:52 → ER FS 20:53
DX: S81.812A Laceration without foreign body, left lower leg, initial encounter (principal); X58.XXXA Exposure to other specified factors, initial encounter

== ENCOUNTER 2021-03-22 17:20 | Emergency (ER) | payer MEDICARE, OTHER ==
[~2021-03-22] VITALS: Ht 165.1 cm; Wt 51.8 kg
[2021-03-22] MEDS ORDERED: TRANEXAMIC ACID INJECTION 1,000 MG in NS (IVPB) 250 ML IV STA (17:35)
[2021-03-22] MEDS ORDERED: TRANEXAMIC ACID 100 MG/ML 10 ML INJECTION ONE ×2 (17:41→17:45)
--- NOTE | 2021-03-22 17:53 | ED Lower Extremity ---
General Chief Complaint: Laceration Stated Complaint: LEFT LEG LAC Source: patient Exam Limitations: no limitations History of Present Illness Date Seen by Provider: Mar 22, 2021 Time Seen by Provider: 17:25 Initial Comments 70-year-old female with past medical history of myasthenia gravis, pulmonary embolism on blood thinners, and chronic steroid use coming in due to a wound on her left lower leg. She was walking with a walker yesterday when she hit something in her left hester when against the walker causing a wound with some bleeding. She presented to emergency department around shortly after that last night. Unfortunately she did not want to wait so left shortly after that. She came back because there is still some minimal bleeding. She states she tried a pressure dressing which did help some but there continued to be some oozing. She is able to walk without any pain in her hester. Her tetanus is up-to-date within the past year. She is otherwise denying any other acute complaints. Allergies and Home Medications Allergies Coded Allergies: diphenhydramine (Verified Allergy, Intermediate, MUSCLE PAIN; AGITATION, 06/09/19) promethazine (Verified Allergy, Mild, AGITATION, 06/09/19) Home Medications Abaloparatide 1.56 Ml Pen.injctr, 80 MCG SC HS, (Reported) Calcium Citrate/Vitamin D3 1 Each Tablet, 2 TAB.CHEW PO TIDWM, (Reported) 500MG/400 UNITS Carvedilol 3.125 Mg Tablet, 3.125 MG PO BID, (Reported) HOLD FOR HR <55 BPM OR SBP<95 Cyanocobalamin (Vitamin B-12) 500 Mcg Tablet, 500 MCG PO DAILY, (Reported) Duloxetine HCl 60 Mg Capsule.dr, 60 MG PO DAILY, (Reported) Fentanyl 1 Each Patch.td72, 25 MCG TD Q72H, (Reported) Gabapentin 300 Mg Capsule, 300 MG PO QID, (Reported) Immune Globulin,Gamma(IgG) 1 Gm/5 Ml Vial, 1 MG INJ FRIDAY, (Reported) TAKES 14GM (10GM+4GM) ON MONDAYS TAKES 11GM (10GM +1GM) ON TUESDAYS Immune Globulin,Gamma(IgG) 10 Gm/50 Ml Vial, 10 GM INJ , (Reported) TAKES 14GM (10GM+4GM) ON MONDAYS TAKES 11GM (10GM +1GM) ON TUESDAYS Immune Globulin,Gamma(IgG) 4 Gm/20 Ml Vial, 4 GM INJ FRIDAY, (Reported) TAKES 14GM (10GM+4GM) ON MONDAYS TAKES 11GM (10GM +1GM) ON TUESDAYS Levothyroxine Sodium 50 Mcg Tablet, 50 MCG PO HS, (Reported) Lipase/Protease/Amylase 1 Each Capsule.dr, 3 CAP PO TIDWM, (Reported) Lipase/Protease/Amylase 1 Each Capsule.dr, 2 CAP PO WITH SNACKS, (Reported) Meloxicam 15 Mg Tablet, 15 MG PO DAILY, (Reported) Multivitamin 1 Each Tablet, 2 TAB PO DAILY, (Reported) Omeprazole 40 Mg Capsule.dr, 40 MG PO DAILY, (Reported) Oxycodone HCl/Acetaminophen 1 Each Tablet, 0.5 EA PO Q6H PRN for PAIN-MODERATE (5-7), (Reported) Oxycodone HCl/Acetaminophen 1 Each Tablet, 1 TAB PO Q4H PRN for PAIN- BREAKTHROUGH Prescribed by: KIRT JAMES on 06/13/20 2342 Pravastatin Sodium 10 Mg Tablet, 10 MG PO HS, (Reported) Prednisone 5 Mg Tablet, 5 MG PO DAILY, (Reported) TAKES 15MG (10MG +5MG) DAILY Prednisone 10 Mg Tab, 15 MG PO DAILY, (Reported) TAKES 15MG (10MG +5MG) DAILY Prednisone 20 Mg Tab, 20 MG PO DAILY Prescribed by: ALCON QUINTERO on 04/27/20 1727 Pyridostigmine [place] 60 Mg Tab, 60 MG PO TID, (Reported) Pyridoxine HCl 100 Mg Tablet, 100 MG PO DAILY, (Reported) Ropinirole HCl 0.5 Mg Tablet, 0.5 MG PO HS, (Reported) Spironolactone 25 Mg Tablet, 25 MG PO DAILY, (Reported) Temazepam 30 Mg Capsule, 30 MG PO HS PRN for SLEEP, (Reported) Terbinafine HCl 250 Mg Tablet, 250 MG PO DAILY, (Reported) Patient Home Medication List Home Medication List Reviewed: Yes Review of Systems Constitutional: No fever EENTM: No blurred vision Respiratory: No cough Cardiovascular: No chest pain Gastrointestinal: No abdominal pain Genitourinary: No frequency Musculoskeletal: No joint swelling, No muscle weakness Skin: rash Psychiatric/Neurological: Denies Numbness, Denies Weakness All Other Systems Reviewed Negative Unless Noted: Yes Past Plshuxm-Odrnpz-Rcvjhw Hx Patient Social History Tobacco Use?: No Seasonal Allergies Seasonal Allergies: No Past Medical History Surgeries: Yes (ORIF left hip, right shoulder sx, cholecystectomy, spleenectomy) Gallbladder, Orthopedic Respiratory: Yes Pneumonia Currently Using CPAP: No Currently Using BIPAP: No Cardiac: Yes Neurological: Yes (MYASTHENIA GRAVIS) Reproductive Disorders: No Female Reproductive Disorders: Denies Sexually Transmitted Disease: No HIV/AIDS: No Genitourinary: No Gastrointestinal: Yes (GASTRITIS, MALNUTRITION, GASTRIC BYPASS, STOMACH STAPLING) Pancreatitis, Chronic Diarrhea Musculoskeletal: Yes (Kyphoplasty vertebrae of compression fx) Osteoporosis, Fractures Endocrine: No HEENT: Yes Tonsilitis Loss of Vision: Denies Hearing Impairment: Denies Cancer: No Psychosocial: Yes Anxiety Integumentary: No Blood Disorders: No Adverse Reaction/Blood Tranf: No Family Medical History Diabetes mellitus 19 MOTHER FH: lung cancer 19 FATHER No Pertinent Family Hx Physical Exam Vital Signs Vital Signs - First Documented 03/22/21 17:25 Temp 36.9 Pulse 75 Resp 18 B/P (MAP) 126/69 (88) Pulse Ox 96 O2 Delivery Room Air Capillary Refill : Height, Weight, BMI Height: 5'5.00" Weight: 113lbs. 0oz. 51.595322ly; 18.00 BMI Method:Stated General Appearance: WD/WN, no apparent distress HEENT: PERRL/EOMI, normal ENT inspection, pharynx normal Neck: non-tender, full range of motion, supple Cardiovascular: regular rate, rhythm, no edema, no murmur Respiratory: chest non-tender, lungs clear, normal breath sounds, no respiratory distress, no accessory muscle use Gastrointestinal: normal bowel sounds, non tender, soft; No distended, No guarding, No rebound Back: normal inspection, no CVA tenderness, no vertebral tenderness Legs: left leg other (Small skin tear to the left hester that is roughly 2 cm with a very minimal amount of oozing, nontender along the tibia however it) Neurologic/Tendon: normal sensation, normal motor functions Neurologic/Psychiatric: no motor/sensory deficits, alert Skin: normal color, warm/dry Lymphatic: no adenopathy Procedures/Interventions Wound Location: Lower Extremities Wound Length (cm): 2 Wound's Depth, Shape: superficial Wound Explored: clean Irrigated w/ Saline (ccs): 500 Betadine Prep?: Yes Anesthesia: Lidocaine w/ Epi Volume Anesthetic (ccs): 3 Suture Size: 4-0 Other Closure Supply: Steri Strip 08/21" (3 strips applied) Sterile Dressing Applied?: Yes tolerated well with no complications Progress/Results/Core Measures Results/Orders My Orders Orders - BART NORMAN MD (Ivpb) (Sodium C... W/Tranexamic Acid (03/22/21 17:35) Tranexamic Acid Injection (Cyklokapron I (03/22/21 17:41) Tranexamic Acid Injection (Cyklokapron I (03/22/21 17:45) Lidocaine/Epi 2% 1:100,000 (Xylocaine/Ep (03/22/21 18:15) Lidocaine/Epi 2% 1:100,000 (Xylocaine/Ep (03/22/21 18:09) Medications Given in ED Current Medications Medications Dose Ordered Sig/Lola Route Start Time Stop Time Status Last Admin Dose Admin Lidocaine/ Epinephrine 20 ml ONCE ONCE INJ 03/22/21 18:15 03/22/21 18:16 DC 03/22/21 18:12 20 ML Tranexamic Acid 1,000 mg ONCE ONCE NA 03/22/21 17:45 03/22/21 17:46 DC 03/22/21 17:48 1,000 MG Vital Signs/I&O 03/22/21 17:25 Temp 36.9 Pulse 75 Resp 18 B/P (MAP) 126/69 (88) Pulse Ox 96 O2 Delivery Room Air Progress Progress Note : Progress Note 70-year-old female coming in after she kicked her walker causing a wound to her left hester. ABCs were intact and vitals were stable on presentation. Physical exam with roughly 2 cm skin tear to the left hester that has a very minimal amount of oozing. Tetanus is up-to-date. This was cleansed at the bedside and pressure was applied. Afterwards there continued to be some small amount of bruising. TXA was then applied to some gauze with a pressure dressing and we have reassessed afterwards. There continues to be some oozing afterwards so I injected it with lidocaine wi th epinephrine which did stop the bleeding. Tissue adhesive was then applied and Steri-Strips and the wound was dressed with a small pressure dressing. She was given instructions on how to take the dressing off especially if she is feeling any numbness or tingling distal to the dressing. Bleeding has all stopped, the wound is appropriately cleansed, and I believe she is stable for discharge. She was sent home with strict return precautions. Departure Impression Primary Impression: Leg laceration Qualified Codes: S81.812A - Laceration without foreign body, left lower leg, initial encounter Disposition: HOME, SELF-CARE Condition: Improved Departure-Patient Inst. Decision time for Depature: 18:26 Referrals: POOJA GORDON MD (PCP/Family) Primary Care Physician Patient Instructions: Laceration Repair With Glue ED Add. Discharge Instructions: You were seen in the emergency department for a skin tear. We used some medications to help stop the bleeding. Please keep the pressure dressing on that for the next 24 hours if you are able to tolerate it. If you have any numbness, tingling, or any other pain concerns then please take the dressing off or loosen it. If you have any redness around the wound or drainage that is concerning for infection please come back to the emergency department. Steri- Strips that are on there should fall off with time. Do not pull them off yourself. Within the next 2 days it is okay to get the area wet. All discharge instructions reviewed with patient and/or family. Voiced understanding. BART NORMAN MD Mar 22, 2021 17:53
[2021-03-22] MEDS ORDERED: LIDOCAINE/EPI 2% 1:100,00 (XYLOCAINE) 20 ML VIAL ONE (18:09)
[2021-03-22] MEDS ORDERED: LIDOCAINE/EPI 2% 1:100,00 (XYLOCAINE) 20 ML VIAL INJ ONE (18:15)
[2021-03-22 18:28] VITALS: BP 121/68
== END 2021-03-22 18:28 | disposition home or self-care (01) ==
LOC: EDUNIT# 17:20 → ER FS 17:21
DX: S81.812A Laceration without foreign body, left lower leg, initial encounter (principal); F41.9 Anxiety disorder, unspecified; Z79.899 Other long term (current) drug therapy; Z79.52 Long term (current) use of systemic steroids; W22.8XXA Striking against or struck by other objects, initial encounter
CPT/HCPCS: 12002

== ENCOUNTER 2021-05-26 13:13 | Emergency (ER) | payer MEDICARE, OTHER ==
[~2021-05-26] VITALS: Ht 165.1 cm; Wt 52.2 kg
[~2021-05-26 13:13] MED LIST changes: -DOXY100C2 PO; +DOXY100C5 PO
--- NOTE | 2021-05-26 13:35 | ED Upper Extremity ---
General Chief Complaint: Trauma-Non Activation Stated Complaint: FALL History of Present Illness Date Seen by Provider: May 26, 2021 Time Seen by Provider: 13:30 Initial Comments 70-year-old female presents via EMS after a fall at home today. Fell on her left side complains of pain to her left shoulder and chest wall. No other concerns or complaints, states she feels fine otherwise. History of broken shoulders in the past as well as her left femur. PMHx signif for Myasthenia Gravis Allergies and Home Medications Allergies Coded Allergies: diphenhydramine (Verified Allergy, Intermediate, MUSCLE PAIN; AGITATION, 06/09/19) promethazine (Verified Allergy, Mild, AGITATION, 06/09/19) Patient Home Medication List Home Medication List Reviewed: Yes Abaloparatide (Tymlos) 1.56 Ml Pen.injctr, 80 MCG SC HS, (Reported) Entered as Reported by: MAY MASON on 04/17/20 1131 Calcium Citrate/Vitamin D3 (Calcium Citrate +Vit D3 Tablet) 1 Each Tablet, 2 TAB.CHEW PO TIDWM, (Reported) Entered as Reported by: ANGELO SETH on 06/09/19 1348 Carvedilol (Carvedilol) 3.125 Mg Tablet, 3.125 MG PO BID, (Reported) Entered as Reported by: ANGELO SETH on 06/09/19 1340 Cyanocobalamin (Vitamin B-12) (B-12) 500 Mcg Tablet, 500 MCG PO DAILY, (Reported) Entered as Reported by: ANGELO SETH on 06/09/19 1340 Duloxetine HCl (Duloxetine HCl) 60 Mg Capsule.dr, 60 MG PO DAILY, (Reported) Entered as Reported by: ANGELO SETH on 06/09/19 1340 Fentanyl (Fentanyl Patch 25 MCG) 1 Each Patch.td72, 25 MCG TD Q72H, (Reported) Entered as Reported by: MAY MASON on 04/17/20 1131 Gabapentin (Neurontin) 300 Mg Capsule, 300 MG PO QID, (Reported) Entered as Reported by: MAY MASON on 04/17/20 1131 Immune Globulin,Gamma(IgG) (Hizentra) 1 Gm/5 Ml Vial, 1 MG INJ FRIDAY, (Reported) Entered as Reported by: ANGELO SETH on 06/09/19 1340 Immune Globulin,Gamma(IgG) (Hizentra) 10 Gm/50 Ml Vial, 10 GM INJ , (Reported) Entered as Reported by: MAY MASON on 04/17/20 113 Immune Globulin,Gamma(IgG) (Hizentra) 4 Gm/20 Ml Vial, 4 GM INJ FRIDAY, (Reported) Entered as Reported by: MAY MASON on 04/17/20 113 Levothyroxine Sodium (Euthyrox) 50 Mcg Tablet, 50 MCG PO HS, (Reported) Entered as Reported by: MAY MASON on 04/17/20 1131 Lipase/Protease/Amylase (Creon Dr 24,000 Units Capsule) 1 Each Capsule., 3 CAP PO TIDWM, (Reported) Entered as Reported by: ANGELO SETH on 06/09/19 1340 Lipase/Protease/Amylase (Creon Dr 24,000 Units Capsule) 1 Each Capsule., 2 CAP PO WITH SNACKS, (Reported) Entered as Reported by: ANGELO ESTH on 06/09/19 1340 Meloxicam (Meloxicam) 15 Mg Tablet, 15 MG PO DAILY, (Reported) Entered as Reported by: ANGELO SETH on 06/09/19 134 Morphine Sulfate (Morphine Sulfate ER) 15 Mg Tablet.er, (Reported) Entered as Reported by: JOHNIE PASTRANA on 08/02/20 0755 Multivitamin (Multivitamins) 1 Each Tablet, 2 TAB PO DAILY, (Reported) Entered as Reported by: ANGELO SETH on 06/09/19 134 Omeprazole (Omeprazole) 40 Mg Capsule., 40 MG PO DAILY, (Reported) Entered as Reported by: RICCI BLAIR on 07/07/15 1540 Oxycodone HCl/Acetaminophen (Oxycodon-Acetaminophen 7.5-325) 1 Each Tablet, 0.5 EA PO Q6H PRN for PAIN-MODERATE (5-7), (Reported) Entered as Reported by: MAY MASON on 04/17/20 113 Oxycodone HCl/Acetaminophen (Percocet 5-325 mg Tablet) 1 Each Tablet, 1 TAB PO Q4H PRN for PAIN-BREAKTHROUGH Prescribed by: KIRT JAMES on 06/13/20 2342 Oxycodone HCl/Acetaminophen (Oxycodone-Acetaminophen 5-325) 1 Each Tablet, (Reported) Entered as Reported by: JOHNIE PASTRANA on 08/02/20 0755 Pravastatin Sodium (Pravastatin Sodium) 10 Mg Tablet, 10 MG PO HS, (Reported) Entered as Reported by: ANGELO SETH on 06/09/19 1340 Prednisone (Prednisone) 5 Mg Tablet, 5 MG PO DAILY, (Reported) Entered as Reported by: MAY MASON on 04/17/20 1131 Prednisone (Prednisone) 10 Mg Tab, 15 MG PO DAILY, (Reported) Entered as Reported by: MAY MASON on 04/17/20 113 Prednisone (Prednisone) 20 Mg Tab, 20 MG PO DAILY Prescribed by: ALCON QUINTERO on 04/27/20 1727 Pyridostigmine [place] (Mestinon) 60 Mg Tab, 60 MG PO TID, (Reported) Entered as Reported by: RICCI BLAIR on 07/07/15 1445 Pyridoxine HCl (Vitamin B-6) 100 Mg Tablet, 100 MG PO DAILY, (Reported) Entered as Reported by: ANGELO SETH on 06/09/19 1340 Ropinirole HCl (Ropinirole HCl) 0.5 Mg Tablet, 0.5 MG PO HS, (Reported) Entered as Reported by: RICCI BLAIR on 07/07/15 1540 Spironolactone (Spironolactone) 25 Mg Tablet, 25 MG PO DAILY, (Reported) Entered as Reported by: RICCI BLAIR on 07/07/15 1529 Temazepam (Temazepam) 30 Mg Capsule, 30 MG PO HS PRN for SLEEP, (Reported) Entered as Reported by: ANGELO SETH on 06/09/19 1340 Terbinafine HCl (Terbinafine HCl) 250 Mg Tablet, 250 MG PO DAILY, (Reported) Entered as Reported by: MAY MASON on 04/17/20 113 Review of Systems Constitutional: No fever, No malaise; weakness (baseline) EENTM: no symptoms reported Respiratory: no symptoms reported; No cough, No short of breath Cardiovascular: no symptoms reported; No chest pain, No edema, No palpitations Gastrointestinal: No abdominal pain, No nausea, No vomiting Musculoskeletal: see HPI; No back pain; joint pain; No neck pain Skin: No lesions, No lumps; other (skin tears to left arm) Psychiatric/Neurological: Denies Headache, Denies Numbness; Weakness Past Eilsldd-Rlsumn-Vbhhkc Hx Patient Social History Tobacco Use?: No Seasonal Allergies Seasonal Allergies: No Past Medical History Surgery/Hospitalization HX: Myasthenia Gravis, Malnutrition with feeding tube, Spinal Stenosis, Heart Failure, Chronic Pain Surgeries: Yes (ORIF left hip, right shoulder sx, cholecystectomy, spleenectomy) Gallbladder, Orthopedic Respiratory: Yes Pneumonia Currently Using CPAP: No Currently Using BIPAP: No Cardiac: Yes Neurological: Yes (MYASTHENIA GRAVIS) Reproductive Disorders: No Female Reproductive Disorders: Denies Sexually Transmitted Disease: No HIV/AIDS: No Genitourinary: No Gastrointestinal: Yes (GASTRITIS, MALNUTRITION, GASTRIC BYPASS, STOMACH STAPLING) Pancreatitis, Chronic Diarrhea Musculoskeletal: Yes (Kyphoplasty vertebrae of compression fx) Osteoporosis, Fractures Endocrine: No HEENT: Yes Tonsilitis Loss of Vision: Denies Hearing Impairment: Denies Cancer: No Psychosocial: Yes Anxiety Integumentary: No Blood Disorders: No Adverse Reaction/Blood Tranf: No Family Medical History Diabetes mellitus 19 MOTHER FH: lung cancer 19 FATHER No Pertinent Family Hx Physical Exam Vital Signs Vital Signs - First Documented 05/26/21 05/26/21 13:15 14:55 Temp 36.5 Pulse 115 Resp 17 B/P (MAP) 91/45 (60) Pulse Ox 99 O2 Delivery Room Air Capillary Refill : Height, Weight, BMI Height: 5'5.00" Weight: 113lbs. 0oz. 51.485263nt; 19.00 BMI Method:Stated General Appearance: no apparent distress, cachetic HEENT: PERRL/EOMI, normal ENT inspection Neck: non-tender, supple Cardiovascular: regular rate, rhythm, no edema Respiratory: chest non-tender, lungs clear Gastrointestinal: non tender, soft Back: normal inspection, no CVA tenderness, no vertebral tenderness Shoulder: normal inspection, no evidence of injury; No asymmetry, No deformity; limited ROM, pain, soft tissue tenderness; No swelling Elbow/Forearm: normal inspection, no evidence of injury Wrist: Yes normal inspection, Yes non-tender, Yes no evidence of injury, Yes normal ROM Hand: normal inspection, non-tender, no evidence of injury, normal ROM Neurologic/Psychiatric: no motor/sensory deficits, alert, normal mood/affect Skin: other (superficial skin tears to left forearm- dorso-lateral) Procedures/Interventions Suture Size: 4-0 Progress/Results/Core Measures Results/Orders My Orders Orders - BOB MARES DO Shoulder 3 View Left (05/26/21 13:29) Chest 1 View Ap/Pa Only (05/26/21 13:29) Bacitracin Ointment (Bacitracin Ointment (05/26/21 13:45) Oxycodone/Acet 10/325mg Tablet (Percocet (05/26/21 14:30) Oxycodone/Apap 5/325mg Tablet (Percocet (05/26/21 14:52) Medications Given in ED Current Medications Medications Dose Ordered Sig/Lola Route Start Time Stop Time Status Last Admin Dose Admin Oxycodone/ Acetaminophen 1 tab STK-MED ONCE .ROUTE 05/26/21 14:52 05/26/21 14:56 DC 05/26/21 14:57 2 TAB Vital Signs/I&O 05/26/21 05/26/21 13:15 14:55 Temp 36.5 Pulse 115 82 Resp 17 19 B/P (MAP) 91/45 (60) 158/80 Pulse Ox 99 O2 Delivery Room Air Room Air Progress Progress Note : Progress Note offered to give pt a sling for her LUE and she declined saying she has one at home and will use it. No distess, VSS. Discussed follow up w PCP in 3 to 5 days if not improving, ER sooner if worse Diagnostic Imaging Diagonstic Imaging: Xray Comments FINDINGS: There is no fracture, dislocation or acute bony abnormality evident. There is slight deformity of the distal left clavicle. This may be a sequela of prior trauma as opposed to an acute nondisplaced fracture. Clinical follow-up is recommended. There is at least moderate degenerative disease of the glenohumeral and acromioclavicular joints. There is the suggestion of soft tissue edema over the acromioclavicular joint, as well. IMPRESSION: 1. There is no acute bony abnormality identified with certainty. The slight deformity of the tip of the distal left clavicle may be related to a fracture. Whether this is chronic or acute is not certain. Clinical follow-up is recommended. Dictated on workstation # [id number] Dict: 05/26/21 1414 Trans: 05/26/21 1432 [facility] [id number] Interpreted by: JAMIL ARRIOLA MD Electronically signed by: IMPRESSION: 1. There is no evidence for an acute cardiopulmonary abnormality on this suboptimal exam. 2. If clinical concern regarding an underlying abnormality persists, then a follow-up PA and lateral chest would be recommended. Dictated on workstation # [id number] Dict: 05/26/21 1406 Trans: 05/26/21 1430 [facility] [id number] Interpreted by: JAMIL ARRIOLA MD Electronically signed by: Departure Impression Primary Impression: Fall Qualified Codes: W19.XXXA - Unspecified fall, initial encounter Additional Impression: Shoulder pain, left Qualified Codes: M25.512 - Pain in left shoulder Disposition: 01 HOME, SELF-CARE Condition: Stable Departure-Patient Inst. Decision time for Depature: 14:40 Referrals: POOJA GORDON MD (PCP/Family) Primary Care Physician Patient Instructions: Preventing Falls ED Add. Discharge Instructions: Follow up with Dr Gordon in a few days if not improving, ER sooner if worse All discharge instructions reviewed with patient and/or family. Voiced understanding. BOB MARES DO May 26, 2021 13:35
[2021-05-26] MEDS ORDERED: BACITRACIN OINTMENT 28 GM TUBE TOP SCH (13:45)
[2021-05-26] MEDS ORDERED: oxyCODONE/APAP 10/325MG (PERCOCET 10) TABLET PO ONE (14:30)
--- NOTE | 2021-05-26 14:32 | Diagnostic Imaging Report ---
EXAM: Portable erect AP chest at 1:55 PM INDICATION: Chest wall pain after a fall. FINDINGS: This exam is less than optimal as the patient is rotated. Allowing for this technical factor, the heart is stable in size when compared to the prior exam of 12/15/2020. There are chronic pulmonary changes evident but there is no sign of failure, pneumonia or of pleural effusion to indicate an acute abnormality. The mediastinum is not widened. The previous exam did note postsurgical changes involving the proximal right humerus. There is again evidence of an orthopedic plate and screw fixation device along the proximal humerus. The long-standing fracture of the distal right clavicle seen previously is also unchanged. In addition, there has been a prior kyphoplasty procedure of T9, L1 and L2. Surgical clips are also seen overlying the left upper quadrant. IMPRESSION: 1. There is no evidence for an acute cardiopulmonary abnormality on this suboptimal exam. 2. If clinical concern regarding an underlying abnormality persists, then a follow-up PA and lateral chest would be recommended. Dictated by: Dictated on workstation # [id number]
--- NOTE | 2021-05-26 14:32 | Diagnostic Imaging Report ---
EXAM: Left shoulder at 1:50 PM INDICATION: Shoulder pain after a fall. 3 views were obtained. There are no prior left shoulder examinations available for comparison. FINDINGS: There is no fracture, dislocation or acute bony abnormality evident. There is slight deformity of the distal left clavicle. This may be a sequela of prior trauma as opposed to an acute nondisplaced fracture. Clinical follow-up is recommended. There is at least moderate degenerative disease of the glenohumeral and acromioclavicular joints. There is the suggestion of soft tissue edema over the acromioclavicular joint, as well. IMPRESSION: 1. There is no acute bony abnormality identified with certainty. The slight deformity of the tip of the distal left clavicle may be related to a fracture. Whether this is chronic or acute is not certain. Clinical follow-up is recommended. Dictated by: Dictated on workstation # [id number]
[2021-05-26] MEDS ORDERED: oxyCODONE/APAP 5/325MG (PERCOCET 5) TABLET ONE (14:52)
[2021-05-26 14:55] VITALS: BP 158/80
== END 2021-05-26 15:01 | disposition home or self-care (01) ==
LOC: EDUNIT# 13:13 → ER FS 13:13
DX: S51.812A Laceration without foreign body of left forearm, initial encounter (principal); M25.512 Pain in left shoulder; F41.9 Anxiety disorder, unspecified; G89.29 Other chronic pain; Z79.52 Long term (current) use of systemic steroids; Z79.899 Other long term (current) drug therapy; W19.XXXA Unspecified fall, initial encounter; Y92.009 Unspecified place in unspecified non-institutional (private) residence as the place of occurrence of the external cause
CPT/HCPCS: 71045; 73030

== ENCOUNTER 2021-05-27 00:41 | Emergency (ER) | payer MEDICARE, OTHER ==
[~2021-05-27] VITALS: Ht 165 cm; Wt 62.5 kg
[2021-05-27] MEDS ORDERED: morphine INJ 10 MG/ML 1ML (SYR OR VIAL) IVP STA (01:03)
--- NOTE | 2021-05-27 01:03 | ED General ---
General Stated Complaint: ABDOMINAL PAIN Source of Information: Patient Exam Limitations: No Limitations History of Present Illness Date Seen by Provider: May 27, 2021 Time Seen by Provider: 12:45 Initial Comments 70-year-old female presents to the ER by private vehicle with complaint of generalized pain. Patient seen earlier myself after a fall, x-rays of her left shoulder and chest were done as she had complained of left shoulder pain. Patient sent home with her at that time. See note for details. Patient's called prior to bring her in and states that she has been moaning and complaining of pain and is not sure what is wrong with her. Patient moaning on arrival without being specific of where she is having pain, no distress and vital signs stable. On my initial encounter, asked patient where she was hurting she said she was " with twins and about to have a baby" Stops moaning in pain when asked to stop and rests comfortably in bed Allergies and Home Medications Allergies Coded Allergies: diphenhydramine (Verified Allergy, Intermediate, MUSCLE PAIN; AGITATION, 06/09/19) promethazine (Verified Allergy, Mild, AGITATION, 06/09/19) Patient Home Medication List Home Medication List Reviewed: Yes Abaloparatide (Tymlos) 1.56 Ml Pen.injctr, 80 MCG SC HS, (Reported) Entered as Reported by: MAY MASON on 04/17/20 1131 Calcium Citrate/Vitamin D3 (Calcium Citrate +Vit D3 Tablet) 1 Each Tablet, 2 TAB.CHEW PO TIDWM, (Reported) Entered as Reported by: ANGELO SETH on 06/09/19 1348 Carvedilol (Carvedilol) 3.125 Mg Tablet, 3.125 MG PO BID, (Reported) Entered as Reported by: ANGELO SETH on 06/09/19 1340 Cyanocobalamin (Vitamin B-12) (B-12) 500 Mcg Tablet, 500 MCG PO DAILY, (Reported) Entered as Reported by: ANGELO SETH on 06/09/19 1340 Duloxetine HCl (Duloxetine HCl) 60 Mg Capsule.dr, 60 MG PO DAILY, (Reported) Entered as Reported by: ANGELO SETH on 06/09/19 1340 Fentanyl (Fentanyl Patch 25 MCG) 1 Each Patch.td72, 25 MCG TD Q72H, (Reported) Entered as Reported by: MAY MASON on 04/17/20 113 Gabapentin (Neurontin) 300 Mg Capsule, 300 MG PO QID, (Reported) Entered as Reported by: MAY MASON on 04/17/20 113 Immune Globulin,Gamma(IgG) (Hizentra) 1 Gm/5 Ml Vial, 1 MG INJ FRIDAY, (Reported) Entered as Reported by: ANGELO SETH on 06/09/19 134 Immune Globulin,Gamma(IgG) (Hizentra) 10 Gm/50 Ml Vial, 10 GM INJ , (Reported) Entered as Reported by: MAY MASON on 04/17/20 113 Immune Globulin,Gamma(IgG) (Hizentra) 4 Gm/20 Ml Vial, 4 GM INJ FRIDAY, (Reported) Entered as Reported by: MAY MASON on 04/17/20 113 Levothyroxine Sodium (Euthyrox) 50 Mcg Tablet, 50 MCG PO HS, (Reported) Entered as Reported by: MAY MASON on 04/17/20 113 Lipase/Protease/Amylase (Creon 24,000 Units Capsule) 1 Each Capsule., 3 CAP PO TIDWM, (Reported) Entered as Reported by: ANGELO SETH on 06/09/19 134 Lipase/Protease/Amylase (Creon Dr 24,000 Units Capsule) 1 Each Capsule.dr, 2 CAP PO WITH SNACKS, (Reported) Entered as Reported by: ANGELO SETH on 06/09/19 134 Meloxicam (Meloxicam) 15 Mg Tablet, 15 MG PO DAILY, (Reported) Entered as Reported by: ANGELO SETH on 06/09/19 134 Morphine Sulfate (Morphine Sulfate ER) 15 Mg Tablet.er, (Reported) Entered as Reported by: JOHNIE PASTRNAA on 08/02/20 0755 Multivitamin (Multivitamins) 1 Each Tablet, 2 TAB PO DAILY, (Reported) Entered as Reported by: ANGELO SETH on 06/09/19 134 Omeprazole (Omeprazole) 40 Mg Capsule.dr, 40 MG PO DAILY, (Reported) Entered as Reported by: RICCI BLAIR on 07/07/15 1540 Oxycodone HCl/Acetaminophen (Oxycodon-Acetaminophen 7.5-325) 1 Each Tablet, 0.5 EA PO Q6H PRN for PAIN-MODERATE (5-7), (Reported) Entered as Reported by: MAY MASON on 04/17/20 1131 Oxycodone HCl/Acetaminophen (Percocet 5-325 mg Tablet) 1 Each Tablet, 1 TAB PO Q4H PRN for PAIN-BREAKTHROUGH Prescribed by: KIRT JAMES on 06/13/20 2342 Oxycodone HCl/Acetaminophen (Oxycodone-Acetaminophen 5-325) 1 Each Tablet, (Reported) Entered as Reported by: JOHNIE PASTRANA on 08/02/20 0755 Pravastatin Sodium (Pravastatin Sodium) 10 Mg Tablet, 10 MG PO HS, (Reported) Entered as Reported by: ANGELO SETH on 06/09/19 1340 Prednisone (Prednisone) 5 Mg Tablet, 5 MG PO DAILY, (Reported) Entered as Reported by: MAY MASON on 04/17/20 113 Prednisone (Prednisone) 10 Mg Tab, 15 MG PO DAILY, (Reported) Entered as Reported by: MAY MASON on 04/17/20 113 Prednisone (Prednisone) 20 Mg Tab, 20 MG PO DAILY Prescribed by: ALCON QUINTERO on 04/27/20 1727 Pyridostigmine Bailey (Mestinon) 60 Mg Tab, 60 MG PO TID, (Reported) Entered as Reported by: RICCI BLAIR on 07/07/15 1445 Pyridoxine HCl (Vitamin B-6) 100 Mg Tablet, 100 MG PO DAILY, (Reported) Entered as Reported by: ANGELO SETH on 06/09/19 1340 Ropinirole HCl (Ropinirole HCl) 0.5 Mg Tablet, 0.5 MG PO HS, (Reported) Entered as Reported by: RICCI BLAIR on 07/07/15 1540 Spironolactone (Spironolactone) 25 Mg Tablet, 25 MG PO DAILY, (Reported) Entered as Reported by: RICCI BLAIR on 07/07/15 1529 Temazepam (Temazepam) 30 Mg Capsule, 30 MG PO HS PRN for SLEEP, (Reported) Entered as Reported by: ANGELO SETH on 06/09/19 1340 Terbinafine HCl (Terbinafine HCl) 250 Mg Tablet, 250 MG PO DAILY, (Reported) Entered as Reported by: MAY MASON on 04/17/20 1131 Review of Systems Review of Systems Constitutional: malaise (unable to give specifics. Delusional regarding and labor. Unsure of baseline MSMelanie States she hurts all over) Gastrointestinal: abdominal pain, diarrhea (BM (in adult diaper) on arrival) Musculoskeletal: other (pain all over) Past Usdfnhw-Giocme-Lywfre Hx Patient Social History Tobacco Use?: No Immunizations Up To Date First/Initial COVID19 Vaccinat: 10/2020 Second COVID19 Vaccination Miki: 11/2020 Seasonal Allergies Seasonal Allergies: No Past Medical History Surgery/Hospitalization HX: Myasthenia Gravis, Malnutrition with feeding tube, Spinal Stenosis, Heart Failure, Chronic Pain Surgeries: Yes (ORIF left hip, right shoulder sx, cholecystectomy, spleenectomy) Gallbladder, Orthopedic Respiratory: Yes Pneumonia Currently Using CPAP: No Currently Using BIPAP: No Cardiac: Yes Neurological: Yes (MYASTHENIA GRAVIS) Reproductive Disorders: No Female Reproductive Disorders: Denies Sexually Transmitted Disease: No HIV/AIDS: No Genitourinary: No Gastrointestinal: Yes (GASTRITIS, MALNUTRITION, GASTRIC BYPASS, STOMACH STAPLING) Pancreatitis, Chronic Diarrhea Musculoskeletal: Yes (Kyphoplasty vertebrae of compression fx) Osteoporosis, Fractures Endocrine: No HEENT: Yes Tonsilitis Loss of Vision: Denies Hearing Impairment: Denies Cancer: No Psychosocial: Yes Anxiety Integumentary: No Blood Disorders: No Adverse Reaction/Blood Tranf: No Family Medical History Diabetes mellitus 19 MOTHER FH: lung cancer 19 FATHER No Pertinent Family Hx Physical Exam Vital Signs Vital Signs - First Documented 05/27/21 00:47 Temp 37.0 Pulse 86 Resp 18 B/P (MAP) 138/83 (101) Pulse Ox 95 O2 Delivery Room Air Capillary Refill : Height, Weight, BMI Height: 5'5.00" Weight: 113lbs. 0oz. 51.101305jj; 19.00 BMI Method:Stated General Appearance: No Apparent Distress, Chronically ill, Cachetic HEENT: PERRL/EOMI, Normal ENT Inspection Respiratory: Chest Non Tender, Lungs Clear, Normal Breath Sounds Cardiovascular: No Edema, No Gallop, No JVD, Tachycardia Gastrointestinal: No Organomegaly, No Pulsatile Mass, Soft (- PEG tube in place); No Distended, No Guarding Back: Normal Inspection, No CVA Tenderness Extremity: Normal Capillary Refill, Normal Range of Motion Neurologic/Psychiatric: Alert, No Motor/Sensory Deficits, Disoriented Skin: Normal Color, Warm/Dry Focused Exam Lactate Level 05/27/21 00:55: Lactic Acid Level 2.57*H Lactic Acid Level Laboratory Tests Test 05/27/21 00:55 Lactic Acid Level 2.57 MMOL/L (0.50-2.00) *H Procedures/Interventions Suture Size: 4-0 Progress/Results/Core Measures Suspected Sepsis SIRS Temperature: Pulse: Respiratory Rate: Laboratory Tests 05/27/21 00:55: White Blood Count 15.2H Blood Pressure / Mean: 05/27/21 00:55: Lactic Acid Level 2.57*H Laboratory Tests 05/27/21 00:55: Creatinine 1.20, Platelet Count 465H, Total Bilirubin 0.3 Results/Orders Lab Results Laboratory Tests Test 05/27/21 00:55 05/27/21 01:34 Range/Units White Blood Count 15.2 H 4.3-11.0 10^3/uL Red Blood Count 4.72 3.80-5.11 10^6/uL Hemoglobin 14.5 11.5-16.0 g/dL Hematocrit 47 35-52 % Mean Corpuscular Volume 99 80-99 fL Mean Corpuscular Hemoglobin 31 25-34 pg Mean Corpuscular Hemoglobin Concent 31 L 32-36 g/dL Red Cell Distribution Width 13.8 10.0-14.5 % Platelet Count 465 H 130-400 10^3/uL Mean Platelet Volume 9.2 9.0-12.2 fL Immature Granulocyte % (Auto) 10 % Neutrophils (%) (Auto) 66 42-75 % Lymphocytes (%) (Auto) 18 12-44 % Monocytes (%) (Auto) 10 0-12 % Eosinophils (%) (Auto) 4 0-10 % Basophils (%) (Auto) 1 0-10 % Neutrophils # (Auto) 2.7 1.8-7.8 X 10^3 Lymphocytes # (Auto) 1.5 1.0-4.0 X 10^3 Monocytes # (Auto) 0.6 0.0-1.0 X 10^3 Eosinophils # (Auto) 0.2 0.0-0.3 10^3/uL Basophils # (Auto) 0.1 0.0-0.1 10^3/uL Neutrophils % (Manual) 59 % Lymphocytes % (Manual) 17 % Monocytes % (Manual) 11 % Eosinophils % (Manual) 13 % Sodium Level 140 135-145 MMOL/L Potassium Level 5.3 H 3.6-5.0 MMOL/L Chloride Level 99 98-107 MMOL/L Carbon Dioxide Level 28 21-32 MMOL/L Anion Gap 13 5-14 MMOL/L Blood Urea Nitrogen 22 H 7-18 MG/DL Creatinine 1.20 0.60-1.30 MG/DL Estimat Glomerular Filtration Rate 44 BUN/Creatinine Ratio 18 Glucose Level 118 H 70-105 MG/DL Lactic Acid Level 2.57 *H 0.50-2.00 MMOL/L Calcium Level 9.0 8.5-10.1 MG/DL Corrected Calcium 9.6 8.5-10.1 MG/DL Total Bilirubin 0.3 0.1-1.0 MG/DL Aspartate Amino Transf (AST/SGOT) 51 H 5-34 U/L Alanine Aminotransferase (ALT/SGPT) 31 0-55 U/L Alkaline Phosphatase 164 H 40-136 U/L Total Protein 6.9 6.4-8.2 GM/DL Albumin 3.3 3.2-4.5 GM/DL Urine Color YELLOW Urine Clarity CLERA Urine pH 6.5 5-9 Urine Specific [place] 1.020 1.016-1.022 Urine Protein NEGATIVE NEGATIVE Urine Glucose (UA) NEGATIVE NEGATIVE Urine Ketones NEGATIVE NEGATIVE Urine Nitrite NEGATIVE NEGATIVE Urine Bilirubin NEGATIVE NEGATIVE Urine Urobilinogen 0.2 < = 1.0 MG/DL Urine Leukocyte Esterase NEGATIVE NEGATIVE Urine RBC (Auto) NEGATIVE NEGATIVE Urine RBC NONE /HPF Urine WBC 0-2 /HPF Urine Squamous Epithelial Cells 0-2 /HPF Urine Crystals NONE /LPF Urine Bacteria TRACE /HPF Urine Casts NONE /LPF Urine Mucus NEGATIVE /LPF Urine Culture Indicated NO My Orders Orders - JYOTIVENSTINEBOB DO Ed Iv/Invasive Line Start (05/27/21 00:49) Cbc With Automated Diff (05/27/21 00:49) Comprehensive Metabolic Panel (05/27/21 00:49) Lactic Acid Analyzer (05/27/21 00:49) Urinalysis (05/27/21 00:50) Ct Abdomen/Pelvis Wo (05/27/21 01:03) Morphine Injection (Morphine Injection (05/27/21 01:03) Manual Differential (05/27/21 00:55) Ns Iv 1000 Ml (Sodium Chloride 0.9%) (05/27/21 01:30) Ct Head Wo (05/27/21 01:43) Vital Signs/I&O 05/27/21 05/27/21 00:47 02:41 Temp 37.0 Pulse 86 80 Resp 18 18 B/P (MAP) 138/83 (101) 146/84 Pulse Ox 95 96 O2 Delivery Room Air Room Air Capillary Refill : Progress Note : Progress Note Patient presented moaning and in discomfort, but wouldn't communicate where she was hurting. MS seemed to fluctuate and difficult to distinguish if pt was joking or being sarcastic vs delirium. After BM and cleaned up, pt demeanor completely chnaged, normal. Work-up with no acute findings and patient conversing and understanding without delusional thought Diagnostic Imaging Diagonstic Imaging: CT Plain Films/CT/US/NM/MRI: abdomen, head Comments CT abdomen- moderate stool burden. no obstruction feeding tube in place CT head- no acute hemorrhage, hydroceph or mass Departure Impression Primary Impression: Abdominal pain Qualified Codes: R10.84 - Generalized abdominal pain Additional Impression: Fluctuating mental status Disposition: 01 HOME, SELF-CARE Condition: Improved Departure-Patient Inst. Decision time for Depature: 02:36 Referrals: POOJA GORDON MD (PCP/Family) Primary Care Physician Patient Instructions: Delirium (Confusion) (DC), Stomach Ache and Stomach Upset Add. Discharge Instructions: Follow up with Dr Gordon this week for re-evaluation of mental status BOB MARES DO May 27, 2021 01:03
[2021-05-27 01:04] LABS: HEMATOCRIT 47 % (35-52); HEMOGLOBIN 14.5 g/dL (11.5-16.0); MEAN CORPUSCULAR HEMOGLOBIN 31 pg (25-34); MEAN CORPUSCULAR VOLUME 99 fL (80-99); WHITE BLOOD COUNT 15.2 10^3/uL (4.3-11.0)
[2021-05-27 01:05] LABS: BASOPHILS # (AUTO) 0.1 10^3/uL (0.0-0.1); BASOPHILS % (AUTO) 1 % (0-10); EOSINOPHILS # (AUTO) 0.2 10^3/uL (0.0-0.3); EOSINOPHILS % (AUTO) 4 % (0-10); LYMPHOCYTES # (AUTO) 1.5 X 10^3 (1.0-4.0); LYMPHOCYTES % (AUTO) 18 % (12-44); MEAN CORPUSCULAR HGB CONC 31 g/dL (32-36); MEAN PLATELET VOLUME 9.2 fL (9.0-12.2); MONOCYTES # (AUTO) 0.6 X 10^3 (0.0-1.0); MONOCYTES % (AUTO) 10 % (0-12); NEUTROPHILS # (AUTO) 2.7 X 10^3 (1.8-7.8); NEUTROPHILS % (AUTO) 66 % (42-75); PLATELET COUNT 465 10^3/uL (130-400)
[2021-05-27 01:19] LABS: BILIRUBIN,TOTAL 0.3 MG/DL (0.1-1.0); CREATININE SERUM 1.2 MG/DL (0.60-1.30); POTASSIUM 5.3 MMOL/L (3.6-5.0); TOTAL PROTEIN 6.9 GM/DL (6.4-8.2)
[2021-05-27 01:20] LABS: ALBUMIN 3.3 GM/DL (3.2-4.5)
[2021-05-27 01:25] LABS: EOSINOPHILS % (MANUAL) 13 %; LYMPHOCYTES % (MANUAL) 17 %; MONOCYTES % (MANUAL) 11 %; NEUTROPHILS % (MANUAL) 59 %
[2021-05-27] MEDS ORDERED: NS IV 1000 ML 1,000 ML IV SCH (01:30)
[2021-05-27 01:38] LABS: BACTERIA,URINE TRACE /HPF; BILIRUBIN,URINE NEGATIVE (NEGATIVE); CLARITY,URINE CLERA; COLOR,URINE YELLOW; GLUCOSE, URINE (UA) NEGATIVE (NEGATIVE); KETONES,URINE NEGATIVE (NEGATIVE); LEUKOCYTE ESTERASE ,URINE NEGATIVE (NEGATIVE); NITRITE,URINE NEGATIVE (NEGATIVE); PH,URINE 6.5 (5-9); PROTEIN,URINE NEGATIVE (NEGATIVE); SQUAMOUS EPITHELIAL CELL,UR 0-2 /HPF; WBC,URINE 0-2 /HPF
[2021-05-27 02:41] VITALS: BP 146/84
--- NOTE | 2021-05-27 06:48 | Diagnostic Imaging Report ---
PROCEDURE: CT head without contrast. TECHNIQUE: Multiple contiguous axial images were obtained through the brain without the use of intravenous contrast. Auto Exposure Controls were utilized during the CT exam to meet ALARA standards for radiation dose reduction. INDICATION: Confusion. Altered mental status. There is no mass, shift of the midline or hemorrhage to suggest an acute intracranial abnormality. The ventricles are not abnormally dilated and stable in size when compared to the prior exam of 06/13/2020. The mild senescent changes seen previously including cortical atrophy and periventricular encephalomalacia are again evident and no different. The bone windows show no evidence for a skull fracture or for a destructive lesion. The orbits are symmetrical and within normal limits. There is mild mucosal thickening of the right maxillary antrum. The sinuses are otherwise generally clear. IMPRESSION: 1. There is no evidence for an acute intracranial abnormality. 2. If clinical concern regarding an underlying abnormality persists, then MRI would be recommended for further study. 3. I agree with the [facility] interpretation of this exam. Dictated by: Dictated on workstation # [id number]
--- NOTE | 2021-05-27 07:44 | Diagnostic Imaging Report ---
PROCEDURE: CT abdomen and pelvis without contrast. TECHNIQUE: Multiple contiguous axial images were obtained through the abdomen and pelvis without the use of intravenous contrast. Auto Exposure Controls were utilized during the CT exam to meet ALARA standards for radiation dose reduction. INDICATION: Diffuse abdominal pain The previous CT abdomen/pelvis exam of 12/15/2020 noted postsurgical changes consistent with a recent jejunostomy tube placement. On this exam, the postsurgical changes have healed. The jejunostomy tube is still evident and seems to be in good position. If further evaluation of the position of the jejunostomy tube is desired, then a follow-up plain film examination of the abdomen after contrast has been injected would be recommended. There are a few fluid-filled segments of small bowel throughout the abdomen or pelvis. This appearance is nonspecific. There is no sign of a bowel obstruction. There does appear to be a considerable amount of fecal material throughout the colon. The amount of fecal material has increased since the prior exam. There is no mass or free fluid collection to suggest an acute abnormality. Surgical clips are again seen about the stomach. There does appear to be a small amount of fluid within the distal esophagus. This is of uncertain etiology. If further study is desired, then either endoscopy or an esophagram would be recommended. The major solid organs of the upper abdomen are unchanged when compared to the prior exam. The spleen and gallbladder are surgically absent. The uterus also appears to be absent. The urinary bladder is grossly unremarkable. The appendix was not well-visualized. The bibasilar atelectasis/infiltrate and fluid seen on the prior study has diminished. There is only a small amount of residual density present in each lower lobe. Bone windows again show posttraumatic and degenerative changes throughout the visualized thoracic and lumbar spine. The bilateral pedicle screws in place at L5 and S1 seen previously remain in good positions. There is no acute bony abnormality noted. IMPRESSION: 1. The postsurgical changes involving the anterior abdominal wall seen on the prior study have resolved. The jejunostomy tube seems to be in good position. Recommendations as above. 2. There is no acute abnormality of the abdomen or pelvis noted. 3. There is a considerable amount of fecal material throughout the colon. 4. The gallbladder, spleen and the uterus are surgically absent. There are also postsurgical changes involving the stomach. 5. There is a small amount of fluid in the distal esophagus. This is of uncertain etiology. 6. There are degenerative and posttraumatic changes involving the spine as well as a prior fusion of L5 and S1. There is no acute bony abnormality appreciated. I agree with the [facility] interpretation of this exam. Dictated by: Dictated on workstation # [id number]
== END 2021-05-27 02:41 | disposition home or self-care (01) ==
LOC: EDUNIT# 00:41 → ER FS 00:44
DX: R10.84 Generalized abdominal pain (principal); R41.82 Altered mental status, unspecified; F41.9 Anxiety disorder, unspecified; R00.0 Tachycardia, unspecified; Z79.899 Other long term (current) drug therapy
CPT/HCPCS: 36415; 70450; 74176; 80053; 81000; 83605; 85007; 85027

== ENCOUNTER 2021-06-07 01:26 | Emergency (ER) | payer MEDICARE, OTHER ==
[~2021-06-07] VITALS: Ht 165 cm; Wt 54.4 kg
[2021-06-07] MEDS ORDERED: HYDROcodone/APAP 5 MG/325 MG (LORTAB) TAB PO ONE (01:45)
--- NOTE | 2021-06-07 01:55 | ED Chest Pain ---
General Chief Complaint: Trauma-Non Activation Stated Complaint: SOA Source: patient Exam Limitations: no limitations History of Present Illness Date Seen by Provider: Jun 07, 2021 Time Seen by Provider: 01:20 Initial Comments Patient is a 70-year-old female presents with left-sided sided chest wall pain after fall 2 days ago striking her face and landing on her left side. Patient reports pain with deep breathing and difficulty catching her breath. Pain is n onradiating. Patient hit her face. She did not loss consciousness. She denies headache and neck pain. She denies history of asthma COPD congestive heart failure or asthma. She is not on anticoagulation therapy. Timing/Duration: 4-6 hours Severity/Quality: moderate Location: other Radiation: other Activities at Onset: other Prior CP/Workup: other Modifying Factors: improves with other Allergies and Home Medications Allergies Coded Allergies: diphenhydramine (Verified Allergy, Intermediate, MUSCLE PAIN; AGITATION, 06/09/19) promethazine (Verified Allergy, Mild, AGITATION, 06/09/19) Patient Home Medication List Home Medication List Reviewed: Yes Abaloparatide (Tymlos) 1.56 Ml Pen.injctr, 80 MCG SC HS, (Reported) Entered as Reported by: MAY MASON on 04/17/20 1131 Calcium Citrate/Vitamin D3 (Calcium Citrate +Vit D3 Tablet) 1 Each Tablet, 2 TAB.CHEW PO TIDWM, (Reported) Entered as Reported by: ANGELO SETH on 06/09/19 1348 Carvedilol (Carvedilol) 3.125 Mg Tablet, 3.125 MG PO BID, (Reported) Entered as Reported by: ANGELO SETH on 06/09/19 1340 Cyanocobalamin (Vitamin B-12) (B-12) 500 Mcg Tablet, 500 MCG PO DAILY, (Reported) Entered as Reported by: ANGELO SETH on 06/09/19 1340 Duloxetine HCl (Duloxetine HCl) 60 Mg Capsule.dr, 60 MG PO DAILY, (Reported) Entered as Reported by: ANGELO SETH on 06/09/19 1340 Fentanyl (Fentanyl Patch 25 MCG) 1 Each Patch.td72, 25 MCG TD Q72H, (Reported) Entered as Reported by: MAY MASON on 04/17/20 1131 Gabapentin (Neurontin) 300 Mg Capsule, 300 MG PO QID, (Reported) Entered as Reported by: MAY MASON on 04/17/20 113 Immune Globulin,Gamma(IgG) (Hizentra) 1 Gm/5 Ml Vial, 1 MG INJ FRIDAY, (Reported) Entered as Reported by: ANGELO SETH on 06/09/19 134 Immune Globulin,Gamma(IgG) (Hizentra) 10 Gm/50 Ml Vial, 10 GM INJ , (Reported) Entered as Reported by: MAY MASON on 04/17/20 113 Immune Globulin,Gamma(IgG) (Hizentra) 4 Gm/20 Ml Vial, 4 GM INJ FRIDAY, (Reported) Entered as Reported by: MAY MASON on 04/17/20 113 Levothyroxine Sodium (Euthyrox) 50 Mcg Tablet, 50 MCG PO HS, (Reported) Entered as Reported by: MAY MASON on 04/17/20 113 Lipase/Protease/Amylase (Creon 24,000 Units Capsule) 1 Each Capsule., 3 CAP PO TIDWM, (Reported) Entered as Reported by: ANGELO SETH on 06/09/19 134 Lipase/Protease/Amylase (Creon Dr 24,000 Units Capsule) 1 Each Capsule., 2 CAP PO WITH SNACKS, (Reported) Entered as Reported by: ANGELO SETH on 06/09/19 134 Meloxicam (Meloxicam) 15 Mg Tablet, 15 MG PO DAILY, (Reported) Entered as Reported by: ANGELO SETH on 06/09/19 134 Morphine Sulfate (Morphine Sulfate ER) 15 Mg Tablet.er, (Reported) Entered as Reported by: JOHNIE PASTRANA on 08/02/20 0755 Multivitamin (Multivitamins) 1 Each Tablet, 2 TAB PO DAILY, (Reported) Entered as Reported by: ANGELO SETH on 06/09/19 134 Omeprazole (Omeprazole) 40 Mg Capsule.dr, 40 MG PO DAILY, (Reported) Entered as Reported by: RICCI BLAIR on 07/07/15 1540 Oxycodone HCl/Acetaminophen (Oxycodon-Acetaminophen 7.5-325) 1 Each Tablet, 0.5 EA PO Q6H PRN for PAIN-MODERATE (5-7), (Reported) Entered as Reported by: MAY MASON on 04/17/20 1131 Oxycodone HCl/Acetaminophen (Percocet 5-325 mg Tablet) 1 Each Tablet, 1 TAB PO Q4H PRN for PAIN-BREAKTHROUGH Prescribed by: KIRT JAMES on 06/13/20 2342 Oxycodone HCl/Acetaminophen (Oxycodone-Acetaminophen 5-325) 1 Each Tablet, (Reported) Entered as Reported by: JOHNIE PASTRANA on 08/02/20 0755 Pravastatin Sodium (Pravastatin Sodium) 10 Mg Tablet, 10 MG PO HS, (Reported) Entered as Reported by: ANGELO SETH on 06/09/19 1340 Prednisone (Prednisone) 5 Mg Tablet, 5 MG PO DAILY, (Reported) Entered as Reported by: MAY MASON on 04/17/20 113 Prednisone (Prednisone) 10 Mg Tab, 15 MG PO DAILY, (Reported) Entered as Reported by: MAY MASON on 04/17/20 113 Prednisone (Prednisone) 20 Mg Tab, 20 MG PO DAILY Prescribed by: ALCON QUINTERO on 04/27/20 1727 Pyridostigmine [place] (Mestinon) 60 Mg Tab, 60 MG PO TID, (Reported) Entered as Reported by: RICCI BLAIR on 07/07/15 1445 Pyridoxine HCl (Vitamin B-6) 100 Mg Tablet, 100 MG PO DAILY, (Reported) Entered as Reported by: ANGELO SETH on 06/09/19 1340 Ropinirole HCl (Ropinirole HCl) 0.5 Mg Tablet, 0.5 MG PO HS, (Reported) Entered as Reported by: RICCI BLAIR on 07/07/15 1540 Spironolactone (Spironolactone) 25 Mg Tablet, 25 MG PO DAILY, (Reported) Entered as Reported by: RICCI BLAIR on 07/07/15 1529 Temazepam (Temazepam) 30 Mg Capsule, 30 MG PO HS PRN for SLEEP, (Reported) Entered as Reported by: ANGELO SETH on 06/09/19 1340 Terbinafine HCl (Terbinafine HCl) 250 Mg Tablet, 250 MG PO DAILY, (Reported) Entered as Reported by: MAY MASON on 04/17/20 113 Review of Systems Review of Systems Constitutional: see HPI EENTM: See HPI Respiratory: See HPI Cardiovascular: See HPI Gastrointestinal: See HPI Genitourinary: See HPI Musculoskeletal: see HPI Skin: see HPI Psychiatric/Neurological: See HPI Endocrine: See HPI Hematologic/Lymphatic: See HPI All Other Systems Reviewed Negative Unless Noted: Yes Past Htjsfdl-Mlaqek-Xajive Hx Patient Social History Tobacco Use?: Yes Immunizations Up To Date First/Initial COVID19 Vaccinat: 10/2020 Second COVID19 Vaccination Miki: 11/2020 Seasonal Allergies Seasonal Allergies: No Past Medical History Surgery/Hospitalization HX: ER visit 05/26/21 for fall Surgeries: Yes (ORIF left hip, right shoulder sx, cholecystectomy, spleenectomy) Gallbladder, Orthopedic Respiratory: Yes Pneumonia Currently Using CPAP: No Currently Using BIPAP: No Cardiac: Yes Neurological: Yes (MYASTHENIA GRAVIS) Reproductive Disorders: No Female Reproductive Disorders: Denies Sexually Transmitted Disease: No HIV/AIDS: No Genitourinary: No Gastrointestinal: Yes (GASTRITIS, MALNUTRITION, GASTRIC BYPASS, STOMACH STAPLI NG) Pancreatitis, Chronic Diarrhea Musculoskeletal: Yes (Kyphoplasty vertebrae of compression fx) Osteoporosis, Fractures Endocrine: No HEENT: Yes Tonsilitis Loss of Vision: Denies Hearing Impairment: Denies Cancer: No Psychosocial: Yes Anxiety Integumentary: No Blood Disorders: No Adverse Reaction/Blood Tranf: No Family Medical History Diabetes mellitus 19 MOTHER FH: lung cancer 19 FATHER No Pertinent Family Hx Physical Exam Vital Signs Vital Signs - First Documented 06/07/21 01:31 Temp 36.4 Pulse 90 Resp 14 B/P (MAP) 117/71 (86) Pulse Ox 99 O2 Delivery Room Air Capillary Refill : Height, Weight, BMI Height: 5'5.00" Weight: 113lbs. 0oz. 51.984293th; 22.00 BMI Method:Stated General Appearance: No Apparent Distress, WD/WN, Anxious HEENT: PERRL/EOMI, Normal ENT Inspection, Pharynx Normal, Other (Left orbital, maxillary facial abrasions with submandibular mandibular ecchymosis.) Neck: Full Range of Motion, Non Tender, Supple Respiratory: Lungs Clear, Normal Breath Sounds, Decreased Breath Sounds (On the left side with splinting), Other (Left-sided chest wall tenderness. No crepitus or subcutaneous emphysema) Cardiovascular: Regular Rate, Rhythm, No Edema Gastrointestinal: Non Tender, Soft Extremity: Non Tender, No Calf Tenderness Neurologic/Psychiatric: Alert, Oriented x3, package maker II-XII Norm as Tested Skin: Normal Color Focused Exam Sepsis Stage: Ruled Out Procedures/Interventions Suture Size: 4-0 Progress/Results/Core Measures Results/Orders My Orders Orders - BOB QUINTERO DO Ribs/Unilateral With Chest (06/07/21 01:39) Hydrocodone/Apap 5/325 Tablet (Lortab 5 (06/07/21 01:45) Medications Given in ED Current Medications Medications Dose Ordered Sig/Lola Route Start Time Stop Time Status Last Admin Dose Admin Acetaminophen/ Hydrocodone Bitart 1 ea ONCE ONCE PO 06/07/21 01:45 06/07/21 01:46 DC 06/07/21 01:50 1 EA Vital Signs/I&O 06/07/21 06/07/21 01:31 01:47 Temp 36.4 36.4 Pulse 90 90 Resp 14 14 B/P (MAP) 117/71 (86) 117/71 (86) Pulse Ox 99 99 O2 Delivery Room Air Room Air Departure Communication (Admissions) Left rib series/chest x-ray: Posterior rib fractures, no pneumothorax Accidental fall from standing 3 days ago resulting in chest wall and head injury. Patient was not using her walker at the time of the fall. Chest wall pain secondary to chest wall trauma. Pain addressed. Recommendations are supportive care watchful waiting and PCP follow-up. Return precautions reviewed. Patient verbalizes understanding and agreement with discharge instructions prior to departure. Impression Primary Impression: Fracture of rib of left side Disposition: HOME, SELF-CARE Condition: Stable Departure-Patient Inst. Decision time for Depature: 02:16 Referrals: POOJA GORDON MD (PCP/Family) Primary Care Physician Patient Instructions: Rib Fractures in Adults Add. Discharge Instructions: You were evaluated in the emergency department for fall with chest wall injury. X-ray showed left-sided rib fractures. Please take hydrocodone as directed for pain and use incentive spirometer to take deep breaths. Follow-up with your PCP in 3 to 5 days for reevaluation. Return to the ED if new or worsening symptoms All discharge instructions reviewed with patient and/or family. Voiced understanding. Scripts Hydrocodone/Acetaminophen (Hydrocodone-Acetamin 5-325 mg) 1 Each Tablet 1-2 TAB PO Q6H PRN for PAIN-MODERATE (5-7), #20 TAB Prov: BOB QUINTERO DO 06/07/21 BOB QUINTERO DO Jun 07, 2021 01:55
[2021-06-07] MEDS ORDERED: ACHD5005 PO (02:20)
[2021-06-07 02:30] VITALS: BP 117/71
--- NOTE | 2021-06-07 05:49 | Diagnostic Imaging Report ---
INDICATION: Left chest wall injury from a fall PA chest and 2 views of the left ribs There appears to be fractures of the left lateral 5th and 6th ribs. Lungs are clear. There are no effusions or pneumothoraces. IMPRESSION: Fractures of the left posterolateral 5th and 6th ribs. There is no effusion or pneumothorax. Dictated by: Dictated on workstation # [id number]
== END 2021-06-07 02:30 | disposition home or self-care (01) ==
LOC: EDUNIT# 01:26 → ER FS 01:31
DX: S22.32XA Fracture of one rib, left side, initial encounter for closed fracture (principal); S00.83XA Contusion of other part of head, initial encounter; F41.9 Anxiety disorder, unspecified; Z72.0 Tobacco use; Z79.899 Other long term (current) drug therapy; Z79.52 Long term (current) use of systemic steroids; W22.8XXA Striking against or struck by other objects, initial encounter
CPT/HCPCS: 71101

== ENCOUNTER 2021-08-24 16:37 | Emergency (ER) | payer OTHER, MEDICARE ==
[~2021-08-24] VITALS: Ht 162.6 cm; Wt 54.1 kg
[~2021-08-24 16:37] MED LIST changes: +ACHD5005 PO; -DULO60CA6 PO; +DULO60CA7 PO; -TERB250T16 PO; +TERB250T88 PO
[2021-08-24 17:10] VITALS: BP 135/73
--- NOTE | 2021-08-24 17:15 | ED Lower Extremity ---
General Chief Complaint: Laceration Stated Complaint: RT LEG LAC Nursing Triage Note: Patient reports she opened her car door and cut her right lower leg on the edge of the door. She reports she had a tetanus shot earlier this year. Source: patient Exam Limitations: no limitations History of Present Illness Date Seen by Provider: Aug 24, 2021 Time Seen by Provider: 16:45 Initial Comments Patient is a 70-year-old female who presents with a skin tear to her right anterior leg. Patient caught her leg on a metal car door just prior to ED arrival. On exam, there is a 4 cm chevron full-thickness skin tear with intact skin flap. Minimal bleeding is noted. Patient's pain is moderate. No medi cations or therapies taken prior to ED arrival. Patient's tetanus is up-to-date. Onset: just prior to arrival Pain/Injury Location: right leg Method of Injury: incised Modifying Factors: Improves With Other Allergies and Home Medications Allergies Coded Allergies: diphenhydramine (Verified Allergy, Intermediate, MUSCLE PAIN; AGITATION, 06/09/19) promethazine (Verified Allergy, Mild, AGITATION, 06/09/19) Patient Home Medication List Home Medication List Reviewed: Yes Abaloparatide (Tymlos) 1.56 Ml Pen.injctr, 80 MCG SC HS, (Reported) Entered as Reported by: MYA MASON on 04/17/20 1131 Calcium Citrate/Vitamin D3 (Calcium Citrate +Vit D3 Tablet) 1 Each Tablet, 2 TAB.CHEW PO TIDWM, (Reported) Entered as Reported by: ANGELO SETH on 06/09/19 1348 Carvedilol (Carvedilol) 3.125 Mg Tablet, 3.125 MG PO BID, (Reported) Entered as Reported by: ANGELO SETH on 06/09/19 1340 Cyanocobalamin (Vitamin B-12) (B-12) 500 Mcg Tablet, 500 MCG PO DAILY, (Report ed) Entered as Reported by: ANGELO STEH on 06/09/19 1340 Duloxetine HCl (Duloxetine HCl) 60 Mg Capsule.dr, 60 MG PO DAILY, (Reported) Entered as Reported by: ANGELO SETH on 06/09/19 1340 Fentanyl (Fentanyl Patch 25 MCG) 1 Each Patch.td72, 25 MCG TD Q72H, (Reported) Entered as Reported by: MAY MASON on 04/17/20 113 Gabapentin (Neurontin) 300 Mg Capsule, 300 MG PO QID, (Reported) Entered as Reported by: MAY MASON on 04/17/20 113 Hydrocodone/Acetaminophen (Hydrocodone-Acetamin 5-325 mg) 1 Each Tablet, 1-2 TAB PO Q6H PRN for PAIN-MODERATE (5-7) Prescribed by: BOB QUINTERO on 06/07/21 0220 Immune Globulin,Gamma(IgG) (Hizentra) 1 Gm/5 Ml Vial, 1 MG INJ FRIDAY, (Reported) Entered as Reported by: ANGELO SETH on 06/09/19 134 Immune Globulin,Gamma(IgG) (Hizentra) 10 Gm/50 Ml Vial, 10 GM INJ , (Reported) Entered as Reported by: MAY MASON on 04/17/20 113 Immune Globulin,Gamma(IgG) (Hizentra) 4 Gm/20 Ml Vial, 4 GM INJ FRIDAY, (Reported) Entered as Reported by: MAY MASON on 04/17/20 113 Levothyroxine Sodium (Euthyrox) 50 Mcg Tablet, 50 MCG PO HS, (Reported) Entered as Reported by: MAY MASON on 04/17/20 113 Lipase/Protease/Amylase (Ashlee [place] 24,000 Units Capsule) 1 Each Capsule., 3 CAP PO TIDWM, (Reported) Entered as Reported by: ANGELO SETH on 06/09/19 134 Lipase/Protease/Amylase (Ashlee [place] 24,000 Units Capsule) 1 Each Capsule., 2 CAP PO WITH SNACKS, (Reported) Entered as Reported by: ANGELO SETH on 06/09/19 134 Meloxicam (Meloxicam) 15 Mg Tablet, 15 MG PO DAILY, (Reported) Entered as Reported by: ANGELO SETH on 06/09/19 134 Morphine Sulfate (Morphine Sulfate ER) 15 Mg Tablet.er, (Reported) Entered as Reported by: JOHNIE PASTRANA on 08/02/20 0755 Multivitamin (Multivitamins) 1 Each Tablet, 2 TAB PO DAILY, (Reported) Entered as Reported by: ANGELO SETH on 06/09/19 134 Omeprazole (Omeprazole) 40 Mg Capsule.dr, 40 MG PO DAILY, (Reported) Entered as Reported by: RICCI BLAIR on 07/07/15 1540 Oxycodone HCl/Acetaminophen (Oxycodon-Acetaminophen 7.5-325) 1 Each Tablet, 0.5 EA PO Q6H PRN for PAIN-MODERATE (5-7), (Reported) Entered as Reported by: MAY MASON on 04/17/20 1131 Oxycodone HCl/Acetaminophen (Percocet 5-325 mg Tablet) 1 Each Tablet, 1 TAB PO Q4H PRN for PAIN-BREAKTHROUGH Prescribed by: KIRT JAMES on 06/13/20 2342 Oxycodone HCl/Acetaminophen (Oxycodone-Acetaminophen 5-325) 1 Each Tablet, (Reported) Entered as Reported by: JOHNIE PASTRANA on 08/02/20 0755 Pravastatin Sodium (Pravastatin Sodium) 10 Mg Tablet, 10 MG PO HS, (Reported) Entered as Reported by: ANGELO SETH on 06/09/19 1340 Prednisone (Prednisone) 5 Mg Tablet, 5 MG PO DAILY, (Reported) Entered as Reported by: MAY MASON on 04/17/20 1131 Prednisone (Prednisone) 10 Mg Tab, 15 MG PO DAILY, (Reported) Entered as Reported by: MAY MASON on 04/17/20 1131 Prednisone (Prednisone) 20 Mg Tab, 20 MG PO DAILY Prescribed by: ALCON QUINTERO on 04/27/20 1727 Pyridostigmine [place] (Mestinon) 60 Mg Tab, 60 MG PO TID, (Reported) Entered as Reported by: RICCI BLAIR on 07/07/15 1445 Pyridoxine HCl (Vitamin B-6) 100 Mg Tablet, 100 MG PO DAILY, (Reported) Entered as Reported by: ANGELO SETH on 06/09/19 1340 Ropinirole HCl (Ropinirole HCl) 0.5 Mg Tablet, 0.5 MG PO HS, (Reported) Entered as Reported by: RICCI BLAIR on 07/07/15 1540 Spironolactone (Spironolactone) 25 Mg Tablet, 25 MG PO DAILY, (Reported) Entered as Reported by: RICCI BLAIR on 07/07/15 1529 Temazepam (Temazepam) 30 Mg Capsule, 30 MG PO HS PRN for SLEEP, (Reported) Entered as Reported by: ANGELO SETH on 06/09/19 1340 Terbinafine HCl (Terbinafine HCl) 250 Mg Tablet, 250 MG PO DAILY, (Reported) Entered as Reported by: MAY MASON on 04/17/20 1131 Review of Systems Constitutional: see HPI EENTM: see HPI Respiratory: see HPI Cardiovascular: see HPI Gastrointestinal: see HPI Genitourinary: see HPI Musculoskeletal: see HPI Skin: see HPI Psychiatric/Neurological: See HPI All Other Systems Reviewed Negative Unless Noted: Yes Past Oxnyllj-Cdskiv-Qorcxn Hx Patient Social History Tobacco Use?: Yes Substance use?: No Alcohol Use?: No Pt feels they are or have been: No Immunizations Up To Date First/Initial COVID19 Vaccinat: 10/2020 Second COVID19 Vaccination Miki: SEP 2020 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: [employer] Seasonal Allergies Seasonal Allergies: No Past Medical History Surgery/Hospitalization HX: PE, myesthenia gravis, feeding tube Surgeries: Yes (ORIF left hip, right shoulder sx, cholecystectomy, spleenectomy) Gallbladder, Orthopedic Respiratory: Yes Pneumonia Currently Using CPAP: No Currently Using BIPAP: No Cardiac: Yes Neurological: Yes (MYASTHENIA GRAVIS) Reproductive Disorders: No Female Reproductive Disorders: Denies Sexually Transmitted Disease: No HIV/AIDS: No Genitourinary: No Gastrointestinal: Yes (GASTRITIS, MALNUTRITION, GASTRIC BYPASS, STOMACH STAPLING) Pancreatitis, Chronic Diarrhea Musculoskeletal: Yes (Kyphoplasty vertebrae of compression fx) Osteoporosis, Fractures Endocrine: No HEENT: Yes Tonsilitis Loss of Vision: Denies Hearing Impairment: Denies Cancer: No Psychosocial: Yes Anxiety Integumentary: No Blood Disorders: No Adverse Reaction/Blood Tranf: No Family Medical History Diabetes mellitus 19 MOTHER FH: lung cancer 19 FATHER No Pertinent Family Hx Physical Exam Vital Signs Vital Signs - First Documented 08/24/21 16:45 Temp 35.8 Pulse 71 Resp 16 B/P (MAP) 135/73 (93) Pulse Ox 98 O2 Delivery Room Air Capillary Refill : Less Than 3 Seconds Height, Weight, BMI Height: 5'5.00" Weight: 113lbs. 0oz. 51.416240nc; 20.00 BMI Method:Stated General Appearance: WD/WN, no apparent distress Legs: right leg other (4 cm chevron skin tear with intact flap right anterior hester, bleeding controlled. Wound is clean) Procedures/Interventions Wound Location: Lower Extremities Other Wound Location Right leg, 4 cm Wound's Depth, Shape: superficial, contused tissue Wound Explored: no foreign body removed Betadine Prep?: No Staple Repair: Stapler Skin Precise Number of Sutures: 5 Layer Closure?: 1 Sterile Dressing Applied?: Yes Progress Wound cleaned and closed and bandaged. Progress/Results/Core Measures Results/Orders Vital Signs/I&O 08/24/21 08/24/21 16:45 17:10 Temp 35.8 35.8 Pulse 71 71 Resp 16 16 B/P (MAP) 135/73 (93) 135/73 Pulse Ox 98 98 O2 Delivery Room Air Room Air Blood Pressure Mean: 93 Departure Impression Primary Impression: Laceration of right lower leg Disposition: 01 HOME, SELF-CARE Condition: Stable Departure-Patient Inst. Decision time for Depature: 17:23 Referrals: POOJA GORDON MD (PCP/Family) Primary Care Physician Patient Instructions: Laceration Repair With [facility] ED Add. Discharge Instructions: Please keep wound clean dry and covered. Apply topical antibiotic twice daily. Take ibuprofen for pain and return to the ED in 10 to 12 days for staple removal. Return sooner if signs of infection. All discharge instructions reviewed with patient and/or family. Voiced understanding. BOB QUINTERO DO Aug 24, 2021 17:15
== END 2021-08-24 17:26 | disposition home or self-care (01) ==
LOC: EDUNIT# 16:37 → ER FS 16:38
DX: S81.811A Laceration without foreign body, right lower leg, initial encounter (principal); Z72.0 Tobacco use; F41.9 Anxiety disorder, unspecified; Z79.899 Other long term (current) drug therapy; W23.1XXA Caught, crushed, jammed, or pinched between stationary objects, initial encounter

== ENCOUNTER 2021-09-05 13:21 | Emergency (ER) | payer OTHER, MEDICARE ==
--- NOTE | 2021-09-05 13:27 | ED Suture Removal/Wound Check ---
Suture/Wound Re-check Suture Removal/Wound Recheck : Suture Removal/Wound Recheck: Vanessa removed by RN General Appearance: WD/WN, no apparent distress Skin Exam: normal color, warm/dry Physical Exam Vital Signs Vital Signs - First Documented 09/05/21 13:38 Temp 35.8 Pulse 90 Resp 18 Pulse Ox 95 O2 Delivery Room Air Capillary Refill : General Appearance: WD/WN, no apparent distress Neurologic/Psychiatric: alert, oriented x 3 Skin: normal color, warm/dry Skin Problem Location: lower extremities (well healed skin tear/laceration repaired with vanessa Aug 24) Comments 5 vanessa removed by RN without difficulty. Wound appeared well healed and well approximated without drainage, increased warmth, fluctuance, or signs of infection. Departure Impression Primary Impression: Encounter for removal of vanessa Disposition: HOME, SELF-CARE Condition: Stable Departure-Patient Inst. Decision time for Depature: 13:27 Referrals: POOJA GORDON MD (PCP/Family) Primary Care Physician Patient Instructions: STAPLE REMOVAL - UNCOMPLICATED ERIN HAMILTON MD Sep 05, 2021 13:27
== END 2021-09-05 13:36 | disposition home or self-care (01) ==
LOC: EDUNIT# 13:21 → ER FS 13:22
DX: Z48.02 Encounter for removal of sutures (principal)

== ENCOUNTER 2021-10-15 02:34 | Emergency (ER) | payer MEDICARE, OTHER ==
[2021-10-15] MEDS ORDERED: morphine INJ 10 MG/ML 1ML (SYR OR VIAL) IVP STA ×2 (02:43→07:03)
[2021-10-15] MEDS ORDERED: NS IV 1000 ML 1,000 ML IV SCH (02:45)
[2021-10-15] MEDS ORDERED: ONDANSETRON 4 MG/2 ML (SDV) Z0FRAN IVP ONE ×2 (02:45→07:15)
[2021-10-15 03:56] LABS: BASOPHILS # (AUTO) 0.1 10^3/uL (0.0-0.1); BASOPHILS % (AUTO) 0 % (0-10); EOSINOPHILS # (AUTO) 0.1 10^3/uL (0.0-0.3); EOSINOPHILS % (AUTO) 1 % (0-10); HEMATOCRIT 46 % (35-52); LYMPHOCYTES # (AUTO) 2.1 10^3/uL (1.0-4.0); LYMPHOCYTES % (AUTO) 16 % (12-44); MEAN CORPUSCULAR HEMOGLOBIN 34 pg (25-34); MEAN CORPUSCULAR HGB CONC 33 g/dL (32-36); MEAN CORPUSCULAR VOLUME 103 fL (80-99); MEAN PLATELET VOLUME 9.8 fL (9.0-12.2); MONOCYTES # (AUTO) 0.8 10^3/uL (0.0-1.0); MONOCYTES % (AUTO) 6 % (0-12); NEUTROPHILS # (AUTO) 10.4 10^3/uL (1.8-7.8); NEUTROPHILS % (AUTO) 77 % (42-75); PLATELET COUNT 140 10^3/uL (130-400); WHITE BLOOD COUNT 13.5 10^3/uL (4.3-11.0)
[2021-10-15] MEDS ORDERED: IOHEXOL 350 MG/ML 100 ML (OMNIPAQUE 350) VIAL IV ONE (04:00)
[2021-10-15] MEDS ORDERED: NS 100 ML (IVPB) BAG IV ONE (04:00)
[2021-10-15] MEDS ORDERED: HOLD METFORMIN - RECEIVED CONTRAST 20 ML VIAL IV SCH (04:00)
[2021-10-15 04:07] LABS: BACTERIA,URINE TRACE /HPF; BILIRUBIN,URINE NEGATIVE (NEGATIVE); CLARITY,URINE CLEAR; COLOR,URINE YELLOW; GLUCOSE, URINE (UA) NEGATIVE (NEGATIVE); KETONES,URINE NEGATIVE (NEGATIVE); LEUKOCYTE ESTERASE ,URINE NEGATIVE (NEGATIVE); NITRITE,URINE NEGATIVE (NEGATIVE); PH,URINE 7.5 (5-9); PROTEIN,URINE NEGATIVE (NEGATIVE); RBC,URINE 0-2 /HPF; SQUAMOUS EPITHELIAL CELL,UR 0-2 /HPF; TRIPLE PHOSPHATE CRYSTAL,UR FEW /LPF; WBC,URINE 0-2 /HPF
[2021-10-15 04:17] LABS: EOSINOPHILS % (MANUAL) 1 %; LYMPHOCYTES % (MANUAL) 14 %; MONOCYTES % (MANUAL) 6 %; NEUTROPHILS % (MANUAL) 79 %
[2021-10-15 04:18] LABS: MICROCYTOSIS SLIGHT; PLATELET CLUMPS SLIGHT; SODIUM 136 MMOL/L (135-145); TOXIC GRANULATION/VACUOLAZATIO 2+
[2021-10-15 04:19] LABS: ALANINE AMINOTRANSFERASE 30 U/L (0-55); ALBUMIN 2.9 GM/DL (3.2-4.5); ALKALINE PHOSPHATASE 128 U/L (40-136); BILIRUBIN,TOTAL 0.6 MG/DL (0.1-1.0); BUN/CREATININE RATIO 29; CALCIUM 8.6 MG/DL (8.5-10.1); CARBON DIOXIDE 27 MMOL/L (21-32); CHLORIDE 99 MMOL/L (98-107); CREATININE SERUM 0.87 MG/DL (0.60-1.30); GFR ESTIMATED 71; GLUCOSE 100 MG/DL (70-105); LIPASE 10 U/L (8-78)
--- NOTE | 2021-10-15 05:58 | Diagnostic Imaging Report ---
INDICATION: Chest pain Upright portable AP view of the chest is obtained with comparison made to the study of 05/26/2021. There is continued elevation of the right hemidiaphragm. Background emphysema is noted. Heart size and pulmonary vascularity are within normal limits. There is no pneumothorax or consolidation. Surgical findings are seen in the right humerus and in the upper abdomen. There are old left rib fractures. No acute abnormality is seen. IMPRESSION: No definite acute abnormality or adverse change. Dictated by: Dictated on workstation # [id number]
--- NOTE | 2021-10-15 06:33 | ED Abdominal Pain ---
General Chief Complaint: Abdominal/GI Problems Stated Complaint: ABDOMINAL PAIN Nursing Triage Note: Pt brought in by ems with the complaint of abdominal pain. Pt states she has had nausea and abd pain a few days. Source of Information: Patient Exam Limitations: No Limitations History of Present Illness Date Seen by Provider: Oct 15, 2021 Time Seen by Provider: 02:34 Initial Comments Patient is a 70-year-old female history of remote gastric bypass performed some 40 years ago at [facility] complicated with pancreatitis and malabsorption syndrome with G-tube in place who presents with increased abdominal pain with nausea and dry heaving starting 4 hours prior to ED arrival. Patient is unable to vomit secondary to surgery. Reports some diarrhea. Pain is dull rated moderate to severe and nonradiating. Patient is unable to find position of comfort.. No fever chills, sweats. Corrective gastric bypass surgery and cholecystectomy were performed in 2005 in [facility]. Patient's sees a GI specialist and [facility]. Location: Other Radiation: Other Activities at Onset: Other Modifying Factors: Improves With Other Associated Symptoms: Other Allergies and Home Medications Allergies Coded Allergies: diphenhydramine (Verified Allergy, Intermediate, MUSCLE PAIN; AGITATION, 06/09/19) promethazine (Verified Allergy, Mild, AGITATION, 06/09/19) Patient Home Medication List Home Medication List Reviewed: Yes Abaloparatide (Tymlos) 1.56 Ml Pen.injctr, 80 MCG SC HS, (Reported) Entered as Reported by: MAY MASON on 04/17/20 1131 Calcium Citrate/Vitamin D3 (Calcium Citrate +Vit D3 Tablet) 1 Each Tablet, 2 TAB.CHEW PO TIDWM, (Reported) Entered as Reported by: ANGELO SETH on 06/09/19 1348 Carvedilol (Carvedilol) 3.125 Mg Tablet, 3.125 MG PO BID, (Reported) Entered as Reported by: ANGELO SETH on 06/09/19 1340 Cyanocobalamin (Vitamin B-12) (B-12) 500 Mcg Tablet, 500 MCG PO DAILY, (Reported) Entered as Reported by: ANGELO SETH on 06/09/19 1340 Duloxetine HCl (Duloxetine HCl) 60 Mg Capsule.dr, 60 MG PO DAILY, (Reported) Entered as Reported by: ANGELO SETH on 06/09/19 1340 Fentanyl (Fentanyl Patch 25 MCG) 1 Each Patch.td72, 25 MCG TD Q72H, (Reported) Entered as Reported by: MAY MASON on 04/17/20 113 Gabapentin (Neurontin) 300 Mg Capsule, 300 MG PO QID, (Reported) Entered as Reported by: MAY MASON on 04/17/20 1131 Hydrocodone/Acetaminophen (Hydrocodone-Acetamin 5-325 mg) 1 Each Tablet, 1-2 TAB PO Q6H PRN for PAIN-MODERATE (5-7) Prescribed by: BOB QUINTERO on 06/07/21 0220 Immune Globulin,Gamma(IgG) (Hizentra) 1 Gm/5 Ml Vial, 1 MG INJ FRIDAY, (Report ed) Entered as Reported by: ANGELO SETH on 06/09/19 134 Immune Globulin,Gamma(IgG) (Hizentra) 10 Gm/50 Ml Vial, 10 GM INJ , (Reported) Entered as Reported by: MAY MASON on 04/17/20 113 Immune Globulin,Gamma(IgG) (Hizentra) 4 Gm/20 Ml Vial, 4 GM INJ FRIDAY, (Reported) Entered as Reported by: MAY MASON on 04/17/20 113 Levothyroxine Sodium (Euthyrox) 50 Mcg Tablet, 50 MCG PO HS, (Reported) Entered as Reported by: MAY MASON on 04/17/20 113 Lipase/Protease/Amylase (Ashlee Dr 24,000 Units Capsule) 1 Each Capsule., 3 CAP PO TIDWM, (Reported) Entered as Reported by: ANGELO SETH on 06/09/19 134 Lipase/Protease/Amylase (Creon Dr 24,000 Units Capsule) 1 Each Capsule., 2 CAP PO WITH SNACKS, (Reported) Entered as Reported by: ANGELO SETH on 06/09/19 134 Meloxicam (Meloxicam) 15 Mg Tablet, 15 MG PO DAILY, (Reported) Entered as Reported by: ANGELO SETH on 06/09/19 134 Morphine Sulfate (Morphine Sulfate ER) 15 Mg Tablet.er, (Reported) Entered as Reported by: JOHNIE PASTRANA on 08/02/20 0755 Multivitamin (Multivitamins) 1 Each Tablet, 2 TAB PO DAILY, (Reported) Entered as Reported by: ANGELO SETH on 06/09/19 1340 Omeprazole (Omeprazole) 40 Mg Capsule.dr, 40 MG PO DAILY, (Reported) Entered as Reported by: RICCI BLAIR on 07/07/15 1540 Oxycodone HCl/Acetaminophen (Oxycodon-Acetaminophen 7.5-325) 1 Each Tablet, 0.5 EA PO Q6H PRN for PAIN-MODERATE (5-7), (Reported) Entered as Reported by: MAY MASON on 04/17/20 1131 Oxycodone HCl/Acetaminophen (Percocet 5-325 mg Tablet) 1 Each Tablet, 1 TAB PO Q4H PRN for PAIN-BREAKTHROUGH Prescribed by: KIRT JAMES on 06/13/20 2342 Oxycodone HCl/Acetaminophen (Oxycodone-Acetaminophen 5-325) 1 Each Tablet, (Reported) Entered as Reported by: JOHNIE PASTRANA on 08/02/20 0755 Pravastatin Sodium (Pravastatin Sodium) 10 Mg Tablet, 10 MG PO HS, (Reported) Entered as Reported by: ANGELO SETH on 06/09/19 1340 Prednisone (Prednisone) 5 Mg Tablet, 5 MG PO DAILY, (Reported) Entered as Reported by: MAY MASON on 04/17/20 113 Prednisone (Prednisone) 10 Mg Tab, 15 MG PO DAILY, (Reported) Entered as Reported by: MAY MASON on 04/17/20 113 Prednisone (Prednisone) 20 Mg Tab, 20 MG PO DAILY Prescribed by: ALCON QUINTERO on 04/27/20 1727 Pyridostigmine [place] (Mestinon) 60 Mg Tab, 60 MG PO TID, (Reported) Entered as Reported by: RICCI BLAIR on 07/07/15 1445 Pyridoxine HCl (Vitamin B-6) 100 Mg Tablet, 100 MG PO DAILY, (Reported) Entered as Reported by: ANGELO SETH on 06/09/19 1340 Ropinirole HCl (Ropinirole HCl) 0.5 Mg Tablet, 0.5 MG PO HS, (Reported) Entered as Reported by: RICCI BLAIR on 07/07/15 1540 Spironolactone (Spironolactone) 25 Mg Tablet, 25 MG PO DAILY, (Reported) Entered as Reported by: RICCI BLAIR on 07/07/15 1529 Temazepam (Temazepam) 30 Mg Capsule, 30 MG PO HS PRN for SLEEP, (Reported) Entered as Reported by: ANGELO SETH on 06/09/19 1340 Terbinafine HCl (Terbinafine HCl) 250 Mg Tablet, 250 MG PO DAILY, (Reported) Entered as Reported by: MAY MASON on 04/17/20 1131 Review of Systems Review of Systems Constitutional: see HPI EENTM: See HPI Respiratory: See HPI Cardiovascular: See HPI Gastrointestinal: See HPI Genitourinary: See HPI Musculoskeletal: see HPI Skin: see HPI Psychiatric/Neurological: See HPI Endocrine: See HPI Hematologic/Lymphatic: See HPI All Other Systems Reviewed Negative Unless Noted: Yes Past Ifaltfu-Ltoqru-Vgrjlo Hx Patient Social History Tobacco Use?: Yes Use of E-Cig and/or Vaping dev: No Substance use?: No Alcohol Use?: No Pt feels they are or have been: No Immunizations Up To Date First/Initial COVID19 Vaccinat: 10/2020 Second COVID19 Vaccination Miki: SEP 2020 Seasonal Allergies Seasonal Allergies: No Past Medical History Surgery/Hospitalization HX: PE, myesthenia gravis, feeding tube Surgeries: Yes (ORIF left hip, right shoulder sx, cholecystectomy, spleenectomy) Gallbladder, Orthopedic Respiratory: Yes Pneumonia Currently Using CPAP: No Currently Using BIPAP: No Cardiac: Yes Neurological: Yes (MYASTHENIA GRAVIS) Reproductive Disorders: No Female Reproductive Disorders: Denies Sexually Transmitted Disease: No HIV/AIDS: No Genitourinary: No Gastrointestinal: Yes (GASTRITIS, MALNUTRITION, GASTRIC BYPASS, STOMACH STAPLING) Pancreatitis, Chronic Diarrhea Musculoskeletal: Yes (Kyphoplasty vertebrae of compression fx) Osteoporosis, Fractures Endocrine: No HEENT: Yes Tonsilitis Loss of Vision: Denies Hearing Impairment: Denies Cancer: No Psychosocial: Yes Anxiety Integumentary: No Blood Disorders: No Adverse Reaction/Blood Tranf: No Family Medical History Diabetes mellitus 19 MOTHER FH: lung cancer 19 FATHER No Pertinent Family Hx Physical Exam Vital Signs Vital Signs - First Documented 10/15/21 02:41 Temp 36.4 Pulse 102 Resp 18 B/P (MAP) 134/72 (92) Pulse Ox 100 O2 Delivery Room Air Capillary Refill : Less Than 3 Seconds Height/Weight/BMI Height: 5'5.00" Weight: 113lbs. 0oz. 51.969012bj; 20.00 BMI Method:Stated General Appearance: WD/WN, mild distress HEENT: PERRL/EOMI, normal ENT inspection Neck: non-tender, full range of motion, supple Respiratory: chest non-tender, lungs clear Cardiovascular: normal peripheral pulses, regular rate, rhythm Gastrointestinal: soft, tenderness (Midepigastric, periumbilical) Extremities: normal range of motion, non-tender, no calf tenderness Back: no CVA tenderness Neurologic/Psychiatric: no motor/sensory deficits, alert, oriented x 3 Skin: normal color, warm/dry Focused Exam Sepsis Stage: Ruled Out Progress/Results/Core Measures Results/Orders Lab Results Laboratory Tests Test 10/15/21 03:30 10/15/21 03:47 Range/Units White Blood Count 13.5 H 4.3-11.0 10^3/uL Red Blood Count 4.46 3.80-5.11 10^6/uL Hemoglobin 15.0 11.5-16.0 g/dL Hematocrit 46 35-52 % Mean Corpuscular Volume 103 H 80-99 fL Mean Corpuscular Hemoglobin 34 25-34 pg Mean Corpuscular Hemoglobin Concent 33 32-36 g/dL Red Cell Distribution Width 14.7 H 10.0-14.5 % Platelet Count 140 130-400 10^3/uL Mean Platelet Volume 9.8 9.0-12.2 fL Immature Granulocyte % (Auto) 1 % Neutrophils (%) (Auto) 77 H 42-75 % Lymphocytes (%) (Auto) 16 12-44 % Monocytes (%) (Auto) 6 0-12 % Eosinophils (%) (Auto) 1 0-10 % Basophils (%) (Auto) 0 0-10 % Neutrophils # (Auto) 10.4 H 1.8-7.8 10^3/uL Lymphocytes # (Auto) 2.1 1.0-4.0 10^3/uL Monocytes # (Auto) 0.8 0.0-1.0 10^3/uL Eosinophils # (Auto) 0.1 0.0-0.3 10^3/uL Basophils # (Auto) 0.1 0.0-0.1 10^3/uL Immature Granulocyte # (Auto) 0.1 0.0-0.1 10^3/uL Neutrophils % (Manual) 79 % Lymphocytes % (Manual) 14 % Monocytes % (Manual) 6 % Eosinophils % (Manual) 1 % Toxic Granulation 2+ Clumped Platelets SLIGHT Percent Immature Platelet Fraction 2.1 0.0-7.6 % Microcytosis SLIGHT Sodium Level 136 135-145 MMOL/L Potassium Level 5.0 3.6-5.0 MMOL/L Chloride Level 99 98-107 MMOL/L Carbon Dioxide Level 27 21-32 MMOL/L Anion Gap 10 5-14 MMOL/L Blood Urea Nitrogen 25 H 7-18 MG/DL Creatinine 0.87 0.60-1.30 MG/DL Estimat Glomerular Filtration Rate 71 BUN/Creatinine Ratio 29 Glucose Level 100 70-105 MG/DL Calcium Level 8.6 8.5-10.1 MG/DL Corrected Calcium 9.5 8.5-10.1 MG/DL Total Bilirubin 0.6 0.1-1.0 MG/DL Aspartate Amino Transf (AST/SGOT) 69 H 5-34 U/L Alanine Aminotransferase (ALT/SGPT) 30 0-55 U/L Alkaline Phosphatase 128 40-136 U/L Troponin I < 0.30 <0.30 NG/ML C-Reactive Protein 0.44 <0.50 MG/DL Total Protein 6.0 L 6.4-8.2 GM/DL Albumin 2.9 L 3.2-4.5 GM/DL Lipase 10 8-78 U/L Urine Color YELLOW Urine Clarity CLEAR Urine pH 7.5 5-9 Urine Specific [place] 1.015 L 1.016-1.022 Urine Protein NEGATIVE NEGATIVE Urine Glucose (UA) NEGATIVE NEGATIVE Urine Ketones NEGATIVE NEGATIVE Urine Nitrite NEGATIVE NEGATIVE Urine Bilirubin NEGATIVE NEGATIVE Urine Urobilinogen 2.0 < = 1.0 MG/DL Urine Leukocyte Esterase NEGATIVE NEGATIVE Urine RBC (Auto) NEGATIVE NEGATIVE Urine RBC 0-2 /HPF Urine WBC 0-2 /HPF Urine Squamous Epithelial Cells 0-2 /HPF Urine Crystals PRESENT H /LPF Urine Triple Phosphate Crystals FEW H /LPF Urine Bacteria TRACE /HPF Urine Casts NONE /LPF Urine Mucus SMALL H /LPF Urine Culture Indicated NO My Orders Orders - BOB QUINTERO DO Cbc With Automated Diff (10/15/21 02:43) Comprehensive Metabolic Panel (10/15/21 02:43) Lipase (10/15/21 02:43) Troponin I Fs (10/15/21 02:43) Ekg Tracing (10/15/21 02:43) Chest 1 View Ap/Pa Only (10/15/21 02:43) Urinalysis (10/15/21 02:43) Crp Fs (10/15/21 02:43) Morphine Injection (Morphine Injection (10/15/21 02:43) Ondansetron Injection (Zofran Injectio (10/15/21 02:45) Ns Iv 1000 Ml (Sodium Chloride 0.9%) (10/15/21 02:45) Ct Abdomen/Pelvis W (10/15/21 02:45) Ed Iv/Invasive Line Start (10/15/21 03:52) Iohexol Injection (Omnipaque 350 Mg/Ml 1 (10/15/21 04:00) Received Contrast (Hold Metformin- Contr (10/15/21 04:00) Ns (Ivpb) (Sodium Chloride 0.9% Ivpb Bag (10/15/21 04:00) Manual Differential (10/15/21 03:30) Medications Given in ED Current Medications Medications Dose Ordered Sig/Lola Route Start Time Stop Time Status Last Admin Dose Admin Iohexol 100 ml ONCE ONCE IV 10/15/21 04:00 10/15/21 04:01 DC 10/15/21 04:37 100 ML Ondansetron HCl 4 mg ONCE ONCE IVP 10/15/21 02:45 10/15/21 02:47 DC 10/15/21 03:07 4 MG Sodium Chloride 100 ml ONCE ONCE IV 10/15/21 04:00 10/15/21 04:01 DC 10/15/21 04:37 100 ML Vital Signs/I&O 10/15/21 02:41 Temp 36.4 Pulse 102 Resp 18 B/P (MAP) 134/72 (92) Pulse Ox 100 O2 Delivery Room Air Blood Pressure Mean: 92 Departure Communication (Admissions) EKG: Sinus rhythm, rate 84, no acute ST-T wave changes. CT abdomen pelvis: Dilated small bowel loops, dilated CBD worse than previous. Patient with abdominal pain with findings concerning for possible small bowel o bstruction and worsening pancreatitis. LFTs and bilirubin unremarkable. IV fluids pain medication antiemetics given with improvement. Symptoms improved with treatment. CT report faxed to [facility].. Patient accepted by Dr. Willoughby Impression Primary Impression: Abdominal pain Additional Impressions: Nausea alone Small bowel obstruction Pancreatitis, chronic Disposition: XF SHT-TRM HOSP Condition: Stable Transfer Method of Transfer: EMS Departure-Patient Inst. Referrals: POOJA GORDON MD (PCP/Family) Primary Care Physician BOB QUINTERO DO Oct 15, 2021 06:33
--- NOTE | 2021-10-15 07:44 | Diagnostic Imaging Report ---
PROCEDURE: CT abdomen and pelvis with contrast. TECHNIQUE: Multiple contiguous axial images were obtained through the abdomen and pelvis after administration of intravenous contrast. Auto Exposure Controls were utilized during the CT exam to meet ALARA standards for radiation dose reduction. All CT scans use one or more of the following dose optimizing techniques: automated exposure control, MA and/or KvP adjustment based on patient size and exam type or iterative reconstruction. INDICATION: Abdominal pain COMPARISON: 05/27/2021 There is mild dependent atelectasis in the visualized lung bases with calcific granuloma in the anterior right middle lobe. There has been further increase in intra and extrahepatic biliary ductal dilatation. Dense calcifications are seen throughout the head and body of the pancreas. No obvious stone is seen within the biliary tree. The spleen is surgically absent. No adrenal gland or renal abnormality is seen. There is no significant free fluid within the abdomen or pelvis. There is moderate amount of fecal material within distal small bowel loops with feces also present in the right colon. Percutaneous catheter appears to enter distal small bowel. No organized fluid collection is appreciated. Patient has undergone hysterectomy. Surgical findings are seen in the lumbar spine and left femur. There are multiple old rib and left pelvic fractures without definite acute osseous abnormality. IMPRESSION: Increasing intra and extrahepatic biliary ductal dilatation. There is concern for obstruction, MRCP or ERCP may be of use. Fecal material in the distal small bowel may reflect stasis. Distal small bowel obstruction is not fully excluded. Otherwise, no other significant interval change is identified compared to previous study. Dictated by: Dictated on workstation # [id number]
[2021-10-15 07:46] VITALS: BP 133/68
== END 2021-10-15 07:45 | disposition short-term general hospital (02) ==
LOC: EDUNIT# 02:34 → ER FS 02:37
DX: K56.609 Unspecified intestinal obstruction, unspecified as to partial versus complete obstruction (principal); K86.1 Other chronic pancreatitis; Z72.0 Tobacco use
CPT/HCPCS: 36415; 71045; 74177; 80053; 81000; 83690; 84484; 85007; 85027; 86141; 93005; 96361; 96374; 96375; 96376

== ENCOUNTER 2021-10-29 15:33 | Emergency (ER) | payer MEDICARE ==
--- NOTE | 2021-10-29 15:59 | ED Abdominal Pain ---
General Chief Complaint: Abdominal/GI Problems Stated Complaint: ABD PAIN Nursing Triage Note: PT HAS CHRONIC ABDOMINAL PAIN FROM KNOWN STONES IN HER PANCREAS THAT HAS ADVISED HER THAT SHE IS NOT A SURGICAL CANDIDATE FOR THE OPEN ABDOMINAL SX DUE TO HER POOR HEALTH. PT REPORTS THEY ONLY GAVE HER ULTRAM AND SHE NEEDS SOMETHING FOR PAIN CONTROL. Source of Information: Patient Exam Limitations: No Limitations History of Present Illness Date Seen by Provider: Oct 29, 2021 Time Seen by Provider: 15:40 Initial Comments 70yoF with PMH of chronic pancreatitis, gastric bypass, prior PE coming in due to epigastric pain. Has been going on for roughly 2 weeks. Pain is sharp, severe, constant. At they prescribed 6 pills of Tramadol and tylenol which she says has not helped. She had been admitted to about 2 weeks ago and was told she had a stone in her pancreas and was not a surgical candidate, so they recommended symptomatic management with pain control. No n/v. Does have chronic "fatty" diarrhea. Takes zofran daily which does help with the nausea. Denies dysuria, SOA, fever, chest pain, or any other concerns. Allergies and Home Medications Allergies Coded Allergies: diphenhydramine (Verified Allergy, Intermediate, MUSCLE PAIN; AGITATION, 06/09/19) promethazine (Verified Allergy, Mild, AGITATION, 06/09/19) Patient Home Medication List Home Medication List Reviewed: Yes Abaloparatide (Tymlos) 1.56 Ml Pen.injctr, 80 MCG SC HS, (Reported) Entered as Reported by: MAY MASON on 04/17/20 1131 Calcium Citrate/Vitamin D3 (Calcium Citrate +Vit D3 Tablet) 1 Each Tablet, 2 TAB.CHEW PO TIDWM, (Reported) Entered as Reported by: ANGELO SETH on 06/09/19 1348 Carvedilol (Carvedilol) 3.125 Mg Tablet, 3.125 MG PO BID, (Reported) Entered as Reported by: ANGELO SETH on 06/09/19 1340 Cefdinir (Cefdinir) 300 Mg Capsule, 300 MG PO BID Prescribed by: BART NORMAN on 10/29/21 1825 Cyanocobalamin (Vitamin B-12) (B-12) 500 Mcg Tablet, 500 MCG PO DAILY, (Reported) Entered as Reported by: ANGELO SETH on 06/09/19 134 Duloxetine HCl (Duloxetine HCl) 60 Mg Capsule.dr, 60 MG PO DAILY, (Reported) Entered as Reported by: ANGELO SETH on 06/09/19 134 Fentanyl (Fentanyl Patch 25 MCG) 1 Each Patch.td72, 25 MCG TD Q72H, (Reported) Entered as Reported by: MAY MASON on 04/17/20 113 Gabapentin (Neurontin) 300 Mg Capsule, 300 MG PO QID, (Reported) Entered as Reported by: MAY MASON on 04/17/20 113 Hydrocodone/Acetaminophen (Hydrocodone-Acetamin 5-325 mg) 1 Each Tablet, 1-2 TAB PO Q6H PRN for PAIN-MODERATE (5-7) Prescribed by: BOB QUINTERO on 06/07/21 022 Immune Globulin,Gamma(IgG) (Hizentra) 1 Gm/5 Ml Vial, 1 MG INJ FRIDAY, (Reported) Entered as Reported by: ANGELO SETH on 06/09/19 134 Immune Globulin,Gamma(IgG) (Hizentra) 10 Gm/50 Ml Vial, 10 GM INJ , (Reported) Entered as Reported by: MAY MASON on 04/17/201130 Immune Globulin,Gamma(IgG) (Hizentra) 4 Gm/20 Ml Vial, 4 GM INJ FRIDAY, (Reported) Entered as Reported by: MAY MASON on 04/17/20 113 Levothyroxine Sodium (Euthyrox) 50 Mcg Tablet, 50 MCG PO HS, (Reported) Entered as Reported by: MYA MASON on 04/17/201130 Lipase/Protease/Amylase (Ashlee Layton 24,000 Units Capsule) 1 Each Capsule., 3 CAP PO TIDWM, (Reported) Entered as Reported by: ANGELO SETH on 06/09/19 134 Lipase/Protease/Amylase (Ashlee Layton 24,000 Units Capsule) 1 Each Capsule., 2 CAP PO WITH SNACKS, (Reported) Entered as Reported by: ANGELO SETH on 06/09/19 134 Meloxicam (Meloxicam) 15 Mg Tablet, 15 MG PO DAILY, (Reported) Entered as Reported by: ANGELO SETH on 06/09/19 1340 Morphine Sulfate (Morphine Sulfate ER) 15 Mg Tablet.er, (Reported) Entered as Reported by: JOHNIE PASTRANA on 08/02/20 0755 Multivitamin (Multivitamins) 1 Each Tablet, 2 TAB PO DAILY, (Reported) Entered as Reported by: ANGELO SETH on 06/09/19 1340 Omeprazole (Omeprazole) 40 Mg Capsule.dr, 40 MG PO DAILY, (Reported) Entered as Reported by: RICCI BLAIR on 07/07/15 1540 Oxycodone HCl (Oxycodone HCl) 5 Mg Tablet, 5 MG PO Q6H PRN for PAIN-SEVERE (8- 10) Prescribed by: BART NORMAN on 10/29/21 1818 Oxycodone HCl/Acetaminophen (Oxycodon-Acetaminophen 7.5-325) 1 Each Tablet, 0.5 EA PO Q6H PRN for PAIN-MODERATE (5-7), (Reported) Entered as Reported by: MAY MASON on 04/17/20 1131 Oxycodone HCl/Acetaminophen (Percocet 5-325 mg Tablet) 1 Each Tablet, 1 TAB PO Q4H PRN for PAIN-BREAKTHROUGH Prescribed by: KIRT JAMES on 06/13/20 2342 Oxycodone HCl/Acetaminophen (Oxycodone-Acetaminophen 5-325) 1 Each Tablet, (Reported) Entered as Reported by: JOHNIE PASTRANA on 08/02/20 0755 Pravastatin Sodium (Pravastatin Sodium) 10 Mg Tablet, 10 MG PO HS, (Reported) Entered as Reported by: ANGELO SETH on 06/09/19 1340 Prednisone (Prednisone) 5 Mg Tablet, 5 MG PO DAILY, (Reported) Entered as Reported by: MAY MASON on 04/17/20 1131 Prednisone (Prednisone) 10 Mg Tab, 15 MG PO DAILY, (Reported) Entered as Reported by: MAY MASON on 04/17/20 113 Prednisone (Prednisone) 20 Mg Tab, 20 MG PO DAILY Prescribed by: ALCON QUINTERO on 04/27/20 1727 Pyridostigmine Virgie (Mestinon) 60 Mg Tab, 60 MG PO TID, (Reported) Entered as Reported by: RICCI BLAIR on 07/07/15 1445 Pyridoxine HCl (Vitamin B-6) 100 Mg Tablet, 100 MG PO DAILY, (Reported) Entered as Reported by: ANGELO SETH on 06/09/19 1340 Ropinirole HCl (Ropinirole HCl) 0.5 Mg Tablet, 0.5 MG PO HS, (Reported) Entered as Reported by: RICCI BLAIR on 07/07/15 1540 Spironolactone (Spironolactone) 25 Mg Tablet, 25 MG PO DAILY, (Reported) Entered as Reported by: RICCI BLAIR on 07/07/15 1529 Temazepam (Temazepam) 30 Mg Capsule, 30 MG PO HS PRN for SLEEP, (Reported) Entered as Reported by: ANGELO SETH on 06/09/19 1340 Terbinafine HCl (Terbinafine HCl) 250 Mg Tablet, 250 MG PO DAILY, (Reported) Entered as Reported by: MAY MASON on 04/17/20 1131 Review of Systems Review of Systems Constitutional: No chills EENTM: No Blurred Vision Respiratory: Denies Cough Cardiovascular: Denies Chest Pain Gastrointestinal: Abdominal Pain Genitourinary: Frequency Musculoskeletal: no symptoms reported Skin: no symptoms reported Psychiatric/Neurological: No Symptoms Reported Endocrine: No Symptoms Reported Hematologic/Lymphatic: No Symptoms Reported All Other Systems Reviewed Negative Unless Noted: Yes Past Qzslpty-Qntdty-Hxfsuf Hx Patient Social History Tobacco Use?: No Use of E-Cig and/or Vaping dev: No Substance use?: No Alcohol Use?: No Pt feels they are or have been: No Immunizations Up To Date First/Initial COVID19 Vaccinat: Jul 2021 Second COVID19 Vaccination Miki: Jul 2021 Third COVID19 Vaccination Date: Jul 2021 Seasonal Allergies Seasonal Allergies: No Past Medical History Surgery/Hospitalization HX: PE, myesthenia gravis, feeding tube Surgeries: Yes (ORIF left hip, right shoulder sx, cholecystectomy, spleenectomy) Gallbladder, Orthopedic Respiratory: Yes Pneumonia Currently Using CPAP: No Currently Using BIPAP: No Cardiac: Yes Neurological: Yes (MYASTHENIA GRAVIS) Reproductive Disorders: No Female Reproductive Disorders: Denies Sexually Transmitted Disease: No HIV/AIDS: No Genitourinary: No Gastrointestinal: Yes (GASTRITIS, MALNUTRITION, GASTRIC BYPASS, STOMACH STAPLING) Pancreatitis, Chronic Diarrhea Musculoskeletal: Yes (Kyphoplasty vertebrae of compression fx) Osteoporosis, Fractures Endocrine: No HEENT: Yes Tonsilitis Loss of Vision: Denies Hearing Impairment: Denies Cancer: No Psychosocial: Yes Anxiety Integumentary: No Blood Disorders: No Adverse Reaction/Blood Tranf: No Family Medical History Diabetes mellitus 19 MOTHER FH: lung cancer 19 FATHER No Pertinent Family Hx Physical Exam Vital Signs Vital Signs - First Documented 10/29/21 15:42 Temp 37.2 Pulse 83 Resp 18 B/P (MAP) 147/94 (111) Pulse Ox 97 O2 Delivery Room Air Capillary Refill : Height/Weight/BMI Height: 5'5.00" Weight: 113lbs. 0oz. 51.989794td; 20.00 BMI Method:Stated General Appearance: WD/WN, mild distress, thin HEENT: PERRL/EOMI, normal ENT inspection, pharynx normal Neck: non-tender, full range of motion, supple, normal inspection Respiratory: chest non-tender, lungs clear, normal breath sounds, no respiratory distress, no accessory muscle use Cardiovascular: regular rate, rhythm, no edema, no murmur Gastrointestinal: normal bowel sounds, soft; No distended, No guarding, No rebound; tenderness, other (J-tube in place with the skin around it appearing normal) Extremities: normal range of motion, non-tender, normal inspection, no pedal edema, no calf tenderness, normal capillary refill Back: normal inspection, no CVA tenderness Neurologic/Psychiatric: no motor/sensory deficits, alert, normal mood/affect Skin: normal color, warm/dry Lymphatic: no adenopathy Focused Exam Lactate Level 10/29/21 16:30: Lactic Acid Level 1.47 Lactic Acid Level Laboratory Tests Test 10/29/21 16:30 Lactic Acid Level 1.47 MMOL/L (0.50-2.00) Progress/Results/Core Measures Results/Orders Lab Results Laboratory Tests Test 10/29/21 16:21 10/29/21 16:30 10/29/21 17:45 Range/Units White Blood Count 18.7 H 4.3-11.0 10^3/uL Red Blood Count 3.79 L 3.80-5.11 10^6/uL Hemoglobin 12.7 11.5-16.0 g/dL Hematocrit 38 35-52 % Mean Corpuscular Volume 100 H 80-99 fL Mean Corpuscular Hemoglobin 34 25-34 pg Mean Corpuscular Hemoglobin Concent 34 32-36 g/dL Red Cell Distribution Width 13.2 10.0-14.5 % Platelet Count 669 H 130-400 10^3/uL Mean Platelet Volume 9.4 9.0-12.2 fL Immature Granulocyte % (Auto) 1 % Neutrophils (%) (Auto) 90 H 42-75 % Lymphocytes (%) (Auto) 7 L 12-44 % Monocytes (%) (Auto) 2 0-12 % Eosinophils (%) (Auto) 0 0-10 % Basophils (%) (Auto) 0 0-10 % Neutrophils # (Auto) 16.8 H 1.8-7.8 10^3/uL Lymphocytes # (Auto) 1.3 1.0-4.0 10^3/uL Monocytes # (Auto) 0.4 0.0-1.0 10^3/uL Eosinophils # (Auto) 0.0 0.0-0.3 10^3/uL Basophils # (Auto) 0.1 0.0-0.1 10^3/uL Immature Granulocyte # (Auto) 0.2 H 0.0-0.1 10^3/uL Neutrophils % (Manual) 90 % Lymphocytes % (Manual) 4 % Monocytes % (Manual) 3 % Myelocytes % 1 % Band Neutrophils 1 % Nucleated Red Blood Cells 1 Reactive Lymphocytes 1 % Toxic Granulation 1+ Platelet Estimate INCREASED Polychromasia SLIGHT Poikilocytosis SLIGHT Target Cells SLIGHT Blood Morphology Comment ABNORMAL Prothrombin Time 12.3 12.2-14.7 SEC INR Comment 0.9 0.8-1.4 Activated Partial Thromboplast Time 24 24-35 SEC Sodium Level 135 135-145 MMOL/L Potassium Level 4.4 3.6-5.0 MMOL/L Chloride Level 99 98-107 MMOL/L Carbon Dioxide Level 25 21-32 MMOL/L Anion Gap 11 5-14 MMOL/L Blood Urea Nitrogen 24 H 7-18 MG/DL Creatinine 0.90 0.60-1.30 MG/DL Estimat Glomerular Filtration Rate 68 BUN/Creatinine Ratio 27 Glucose Level 148 H 70-105 MG/DL Calcium Level 8.9 8.5-10.1 MG/DL Corrected Calcium 9.5 8.5-10.1 MG/DL Total Bilirubin 0.3 0.1-1.0 MG/DL Aspartate Amino Transf (AST/SGOT) 38 H 5-34 U/L Alanine Aminotransferase (ALT/SGPT) 28 0-55 U/L Alkaline Phosphatase 167 H 40-136 U/L Total Protein 6.2 L 6.4-8.2 GM/DL Albumin 3.2 3.2-4.5 GM/DL Lipase 5 L 8-78 U/L Lactic Acid Level 1.47 0.50-2.00 MMOL/L Urine Color YELLOW Urine Clarity CLEAR Urine pH 6.0 5-9 Urine Specific [place] 1.010 L 1.016-1.022 Urine Protein NEGATIVE NEGATIVE Urine Glucose (UA) NEGATIVE NEGATIVE Urine Ketones NEGATIVE NEGATIVE Urine Nitrite NEGATIVE NEGATIVE Urine Bilirubin NEGATIVE NEGATIVE Urine Urobilinogen 0.2 < = 1.0 MG/DL Urine Leukocyte Esterase 1+ H NEGATIVE Urine RBC (Auto) NEGATIVE NEGATIVE Urine RBC NONE /HPF Urine WBC 2-5 /HPF Urine Squamous Epithelial Cells 0-2 /HPF Urine Renal Epithelial Cells RARE /HPF Urine Crystals PRESENT H /LPF Urine Amorphous Sediment FEW LARON URATES H /LPF Urine Bacteria FEW H /HPF Urine Casts NONE /LPF Urine Mucus SMALL H /LPF Urine Culture Indicated NO My Orders Orders - BART NORMAN MD Cbc With Automated Diff (10/29/21 16:24) Comprehensive Metabolic Panel (10/29/21 16:24) Lactic Acid Analyzer (10/29/21 16:24) Lipase (10/29/21 16:24) Protime With Inr (10/29/21 16:24) Partial Thromboplastin Time (10/29/21 16:24) Ua Culture If Indicated (10/29/21 16:24) Ns Iv 1000 Ml (Sodium Chloride 0.9%) (10/29/21 16:24) Morphine Injection (Morphine Injection (10/29/21 16:24) Manual Differential (10/29/21 16:21) Vital Signs/I&O 10/29/21 10/29/21 15:42 18:23 Temp 37.2 36.9 Pulse 83 82 Resp 18 16 B/P (MAP) 147/94 (111) 120/60 Pulse Ox 97 95 O2 Delivery Room Air Room Air Blood Pressure Mean: 111 Progress Progress Note : Progress Note 70-year-old female with above history coming in due to abdominal pain. ABCs were intact and vitals were stable on presentation. Physical exam with epigastric tenderness but no signs of peritonitis. On review of the chart, she was seen here couple weeks ago and had a CT of her abdomen and pelvis. She had a dilated common bile duct and concerns for small bowel obstruction. Her GI doctors are at so she was transferred there. I contacted and discussed her case. They said they moved her J-tube because t hey believe that was causing an obstruction and her symptoms improved significantly afterwards. She had an MRCP on October 16 with moderate dilatation and a small filling defect in the common bile duct around the pancreatic head. They favored this with sludge and not a stone. She also had a flex sigmoidoscopy which just showed diverticulosis. Her diet was advanced, she had bowel movements, and clinically did not have an obstruction. GI and surgery eventually signed off and she was sent home saying she just needs symptom management for her acute on chronic pancreatitis. She said pain continues to worsen. She ran out of the tramadol and it never seemed to help her that much. Once here an IV was placed and basic labs were obtained. She was given a bolus of IV fluids as well as 4 mg of IV morphine. Pain somewhat improved after that. I discussed with the patient admitting her for her pancreatitis for pain control versus going home and attempting pain control there. She says she does not want to be admitted at this time. She says she follows with Dr. Gordon and has an appointment tomorrow. We discussed at length switching to a palliative care approach, and she says she is very interested in this as she really just needs improvement in her symptoms. Her lipase was 5 which makes sense given her pancreas is probably burnt out at this point. She is on chronic Creon. White blood count elevated which could be reactive or due to all the stress and procedures that she has had recently. No other clinical signs of infection. Blood pressure here was in the 90s systolic which she said typically she can be in the 80s to 90 systolic on a normal day. She is not tachycardic here. On reassessment she went from being tearful on my initial presentation and interview to actually smiling and making jokes and feeling better. Her urinalysis was equivocal for infection. On repeat questioning she does seem to have some frequency type symptoms so we will treat this as a UTI. I believe she is stable for discharge with outpatient follow-up tomorrow. She was sent home with strict return precautions. Departure Impression Primary Impression: Pancreatitis, chronic Qualified Codes: K86.1 - Other chronic pancreatitis Additional Impression: UTI (urinary tract infection) Qualified Codes: N30.00 - Acute cystitis without hematuria Disposition: HOME, SELF-CARE Condition: Stable Departure-Patient Inst. Decision time for Depature: 18:24 Referrals: POOJA GORDON MD (PCP/Family) Primary Care Physician Patient Instructions: Chronic Pancreatitis Add. Discharge Instructions: Please follow-up with Dr. Gordon tomorrow as you discussed. I highly recommend discussing going on palliative care for pain management. If you have any fevers, vomiting that will not stop, or any concerns then please come back to the ER. Scripts Cefdinir (Cefdinir) 300 Mg Capsule 300 MG PO BID for 5 Days, #10 CAP 0 Refills Prov: BART NORMAN MD 10/29/21 Oxycodone HCl (Oxycodone HCl) 5 Mg Tablet 5 MG PO Q6H PRN for PAIN-SEVERE (8-10) for 2 Days, #8 TAB Prov: BART NORMAN MD 10/29/21 BART NORMAN MD Oct 29, 2021 15:59
[2021-10-29] MEDS ORDERED: morphine INJ 10 MG/ML 1ML (SYR OR VIAL) IVP STA (16:24)
[2021-10-29] MEDS ORDERED: NS IV 1000 ML 1,000 ML IV STA (16:24)
[2021-10-29 16:32] LABS: BASOPHILS # (AUTO) 0.1 10^3/uL (0.0-0.1); BASOPHILS % (AUTO) 0 % (0-10); EOSINOPHILS % (AUTO) 0 % (0-10); HEMATOCRIT 38 % (35-52); HEMOGLOBIN 12.7 g/dL (11.5-16.0); LYMPHOCYTES # (AUTO) 1.3 10^3/uL (1.0-4.0); LYMPHOCYTES % (AUTO) 7 % (12-44); MEAN CORPUSCULAR HEMOGLOBIN 34 pg (25-34); MEAN CORPUSCULAR HGB CONC 34 g/dL (32-36); MEAN CORPUSCULAR VOLUME 100 fL (80-99); MEAN PLATELET VOLUME 9.4 fL (9.0-12.2); MONOCYTES # (AUTO) 0.4 10^3/uL (0.0-1.0); MONOCYTES % (AUTO) 2 % (0-12); NEUTROPHILS # (AUTO) 16.8 10^3/uL (1.8-7.8); NEUTROPHILS % (AUTO) 90 % (42-75); PLATELET COUNT 669 10^3/uL (130-400); WHITE BLOOD COUNT 18.7 10^3/uL (4.3-11.0)
[2021-10-29 16:37] LABS: INR 0.9 (0.8-1.4); PROTHROMBIN TIME PATIENT 12.3 SEC (12.2-14.7)
[2021-10-29 16:47] LABS: BILIRUBIN,TOTAL 0.3 MG/DL (0.1-1.0); CALCIUM 8.9 MG/DL (8.5-10.1); CREATININE SERUM 0.9 MG/DL (0.60-1.30); POTASSIUM 4.4 MMOL/L (3.6-5.0); TOTAL PROTEIN 6.2 GM/DL (6.4-8.2)
[2021-10-29 16:48] LABS: ALBUMIN 3.2 GM/DL (3.2-4.5)
[2021-10-29 17:05] LABS: BAND NEUTROPHILS 1 %; LYMPHOCYTES % (MANUAL) 4 %; MONOCYTES % (MANUAL) 3 %; MYELOCYTES % 1 %; NEUTROPHILS % (MANUAL) 90 %; NUCLEATED RED BLOOD CELLS 1; PLATELET ESTIMATE INCREASED; POIKILOCYTOSIS SLIGHT; POLYCHROMASIA SLIGHT; RBC MORPH ABNORMAL; REACTIVE LYMPHOCYTES 1 %; TARGET CELLS SLIGHT
[2021-10-29 17:06] LABS: TOXIC GRANULATION/VACUOLAZATIO 1+
[2021-10-29 18:00] LABS: BILIRUBIN,URINE NEGATIVE (NEGATIVE); CLARITY,URINE CLEAR; COLOR,URINE YELLOW; GLUCOSE, URINE (UA) NEGATIVE (NEGATIVE); KETONES,URINE NEGATIVE (NEGATIVE); LEUKOCYTE ESTERASE ,URINE 1+ (NEGATIVE); NITRITE,URINE NEGATIVE (NEGATIVE); PROTEIN,URINE NEGATIVE (NEGATIVE)
[2021-10-29 18:12] LABS: BACTERIA,URINE FEW /HPF; RENAL EPITHELIAL CELLS,URINE RARE /HPF
[2021-10-29 18:13] LABS: AMORPHOUS SEDIMENT,UR FEW AMOR URATES /LPF
[2021-10-29 18:14] LABS: SQUAMOUS EPITHELIAL CELL,UR 0-2 /HPF
[2021-10-29] MEDS ORDERED: OXYC5TAB PO (18:17)
[2021-10-29 18:23] VITALS: BP 120/60
[2021-10-29] MEDS ORDERED: CEFD300C3 PO (18:25)
== END 2021-10-29 18:27 | disposition home or self-care (01) ==
LOC: EDUNIT# 15:33 → ER FS 15:34
DX: K86.1 Other chronic pancreatitis (principal); N39.0 Urinary tract infection, site not specified
CPT/HCPCS: 36415; 80053; 81000; 83605; 83690; 85007; 85027; 85610; 85730

== ENCOUNTER 2022-01-16 18:16 | Inpatient (IN) | payer MEDICARE ==
[~2022-01-16] VITALS: Ht 162.6 cm; Wt 54.6 kg
[~2022-01-16 18:16] MED LIST changes: +CEFD300C3 PO; +OXYC5TAB PO
[2022-01-16 18:45] LABS: BASOPHILS # (AUTO) 0.1 10^3/uL (0.0-0.1); BASOPHILS % (AUTO) 1 % (0-10); EOSINOPHILS # (AUTO) 0.1 10^3/uL (0.0-0.3); EOSINOPHILS % (AUTO) 0 % (0-10); HEMATOCRIT 43 % (35-52); HEMOGLOBIN 14.1 g/dL (11.5-16.0); LYMPHOCYTES # (AUTO) 2.6 10^3/uL (1.0-4.0); LYMPHOCYTES % (AUTO) 12 % (12-44); MEAN CORPUSCULAR HEMOGLOBIN 31 pg (25-34); MEAN CORPUSCULAR HGB CONC 33 g/dL (32-36); MEAN CORPUSCULAR VOLUME 94 fL (80-99); MEAN PLATELET VOLUME 9.5 fL (9.0-12.2); MONOCYTES % (AUTO) 9 % (0-12); NEUTROPHILS % (AUTO) 78 % (42-75); PLATELET COUNT 564 10^3/uL (130-400)
--- NOTE | 2022-01-16 18:56 | Diagnostic Imaging Report ---
EXAMINATION: Chest 1 view. HISTORY: Shortness of breath. COMPARISON: 10/15/2021. FINDINGS: There are surgical clips underneath the left hemidiaphragm. Right-sided humeral fixation is present. There have been multiple vertebroplasties. There is mild left base atelectasis or scarring. No pleural effusion or pneumothorax. Heart size is normal. IMPRESSION: Mild left base atelectasis or scarring. Dictated by: Dictated on workstation # [id number]
[2022-01-16 19:04] LABS: BAND NEUTROPHILS 1 %; LYMPHOCYTES % (MANUAL) 10 %; NEUTROPHILS % (MANUAL) 80 %
[2022-01-16 19:05] LABS: ATYPICAL LYMPHOCYTES 2 %; BASOPHILS % (MANUAL) 1 %; EOSINOPHILS % (MANUAL) 0 %; MONOCYTES % (MANUAL) 6 %
[2022-01-16] MEDS: NS IV 1000 ML 1,000 ML IV SCH ×2 (19:10→20:06)
[2022-01-16 19:13] LABS: BILIRUBIN,TOTAL 0.3 MG/DL (0.1-1.0); BUN/CREATININE RATIO 19; CALCIUM 9.1 MG/DL (8.5-10.1); CARBON DIOXIDE 26 MMOL/L (21-32); CHLORIDE 96 MMOL/L (98-107); CREATININE SERUM 0.95 MG/DL (0.60-1.30); GFR ESTIMATED 64; GLUCOSE 156 MG/DL (70-105); POTASSIUM 4.3 MMOL/L (3.6-5.0); SODIUM 133 MMOL/L (135-145)
[2022-01-16 19:14] LABS: ALANINE AMINOTRANSFERASE 12 U/L (0-55); ALBUMIN 3.2 GM/DL (3.2-4.5); ALKALINE PHOSPHATASE 151 U/L (40-136); TOTAL PROTEIN 6.8 GM/DL (6.4-8.2)
[2022-01-16] MEDS ORDERED: PIPERACILLIN SODIUM/TAZOBACTAM 4.5 GM in NS (IVPB) 100 ML IV ONE (20:30)
[2022-01-16] MEDS ORDERED: NS 100 ML (IVPB) BAG IV ONE (20:30)
[2022-01-16] MEDS ORDERED: IOHEXOL 350 MG/ML 150 ML (OMNIPAQUE 350) VIAL IV ONE (20:30)
[2022-01-16] MEDS ORDERED: HOLD METFORMIN - RECEIVED CONTRAST 20 ML VIAL IV SCH (20:30)
[2022-01-16] MEDS: CATHETER FLUSH 10 ML SYR IV PRN (21:02)
--- NOTE | 2022-01-16 21:11 | ED Chest Pain ---
General Chief Complaint: Chest Pain Stated Complaint: CP Source: patient Exam Limitations: no limitations History of Present Illness Date Seen by Provider: Jan 16, 2022 Time Seen by Provider: 19:00 Initial Comments Patient is a 71 year old female with h/o myasthenia gravis who presents with chest pain, palpitations, and fever. Symptoms onset for the past 2 days with pain, redness, swelling and drainage around peg tube. Tube placed 1 year ago per [facility]. Patient had Timing/Duration: 1-3 hours Severity/Quality: moderate Location: other Radiation: other Activities at Onset: other Prior CP/Workup: other Modifying Factors: improves with other Allergies and Home Medications Allergies Coded Allergies: diphenhydramine (Verified Allergy, Intermediate, MUSCLE PAIN; AGITATION, 06/09/19) promethazine (Verified Allergy, Mild, AGITATION, 06/09/19) Patient Home Medication List Home Medication List Reviewed: Yes Abaloparatide (Tymlos) 1.56 Ml Pen.injctr, 80 MCG SC HS, (Reported) Entered as Reported by: MAY MASON on 04/17/20 1131 Calcium Citrate/Vitamin D3 (Calcium Citrate +Vit D3 Tablet) 1 Each Tablet, 2 TAB.CHEW PO TIDWM, (Reported) Entered as Reported by: ANGELO SETH on 06/09/19 1348 Carvedilol (Carvedilol) 3.125 Mg Tablet, 3.125 MG PO BID, (Reported) Entered as Reported by: ANGELO SETH on 06/09/19 1340 Cefdinir (Cefdinir) 300 Mg Capsule, 300 MG PO BID Prescribed by: BART NORMAN on 10/29/21 1825 Cyanocobalamin (Vitamin B-12) (B-12) 500 Mcg Tablet, 500 MCG PO DAILY, (Reported) Entered as Reported by: ANGELO SETH on 06/09/19 1340 Duloxetine HCl (Duloxetine HCl) 60 Mg Capsule.dr, 60 MG PO DAILY, (Reported) Entered as Reported by: ANGELO SETH on 06/09/19 1340 Fentanyl (Fentanyl Patch 25 MCG) 1 Each Patch.td72, 25 MCG TD Q72H, (Reported) Entered as Reported by: MAY MASON on 04/17/20 1131 Gabapentin (Neurontin) 300 Mg Capsule, 300 MG PO QID, (Reported) Entered as Reported by: MAY MASON on 04/17/20 113 Hydrocodone/Acetaminophen (Hydrocodone-Acetamin 5-325 mg) 1 Each Tablet, 1-2 TAB PO Q6H PRN for PAIN-MODERATE (5-7) Prescribed by: BOB QUINTERO on 06/07/21 0220 Immune Globulin,Gamma(IgG) (Hizentra) 1 Gm/5 Ml Vial, 1 MG INJ FRIDAY, ( Reported) Entered as Reported by: ANGELO SETH on 06/09/19 1340 Immune Globulin,Gamma(IgG) (Hizentra) 10 Gm/50 Ml Vial, 10 GM INJ , (Reported) Entered as Reported by: MAY MASON on 04/17/20 113 Immune Globulin,Gamma(IgG) (Hizentra) 4 Gm/20 Ml Vial, 4 GM INJ FRIDAY, (Reported) Entered as Reported by: MAY MASON on 04/17/20 113 Levothyroxine Sodium (Euthyrox) 50 Mcg Tablet, 50 MCG PO HS, (Reported) Entered as Reported by: MAY MASON on 04/17/20 113 Lipase/Protease/Amylase ([place] Dr 24,000 Units Capsule) 1 Each Capsule., 3 CAP PO TIDWM, (Reported) Entered as Reported by: ANGELO SETH on 06/09/19 134 Lipase/Protease/Amylase (Creon Dr 24,000 Units Capsule) 1 Each Capsule.dr, 2 CAP PO WITH SNACKS, (Reported) Entered as Reported by: ANGELO SETH on 06/09/19 134 Meloxicam (Meloxicam) 15 Mg Tablet, 15 MG PO DAILY, (Reported) Entered as Reported by: ANGELO SETH on 06/09/19 134 Morphine Sulfate (Morphine Sulfate ER) 15 Mg Tablet.er, (Reported) Entered as Reported by: JOHNIE PASTRANA on 08/02/20 0755 Multivitamin (Multivitamins) 1 Each Tablet, 2 TAB PO DAILY, (Reported) Entered as Reported by: ANGELO SETH on 06/09/19 134 Omeprazole (Omeprazole) 40 Mg Capsule.dr, 40 MG PO DAILY, (Reported) Entered as Reported by: RICCI BLAIR on 07/07/15 1540 Oxycodone HCl (Oxycodone HCl) 5 Mg Tablet, 5 MG PO Q6H PRN for PAIN-SEVERE (8- 10) Prescribed by: BART NORMAN on 10/29/21 1818 Oxycodone HCl/Acetaminophen (Oxycodon-Acetaminophen 7.5-325) 1 Each Tablet, 0.5 EA PO Q6H PRN for PAIN-MODERATE (5-7), (Reported) Entered as Reported by: MAY MASON on 04/17/20 1131 Oxycodone HCl/Acetaminophen (Percocet 5-325 mg Tablet) 1 Each Tablet, 1 TAB PO Q4H PRN for PAIN-BREAKTHROUGH Prescribed by: KIRT JAMES on 06/13/20 2342 Oxycodone HCl/Acetaminophen (Oxycodone-Acetaminophen 5-325) 1 Each Tablet, (Reported) Entered as Reported by: JOHNIE PASTRANA on 08/02/20 0755 Pravastatin Sodium (Pravastatin Sodium) 10 Mg Tablet, 10 MG PO HS, (Reported) Entered as Reported by: ANGELO SETH on 06/09/19 1340 Prednisone (Prednisone) 5 Mg Tablet, 5 MG PO DAILY, (Reported) Entered as Reported by: MAY MASON on 04/17/20 1131 Prednisone (Prednisone) 10 Mg Tab, 15 MG PO DAILY, (Reported) Entered as Reported by: MAY MASON on 04/17/20 113 Prednisone (Prednisone) 20 Mg Tab, 20 MG PO DAILY Prescribed by: ALCON QUINTERO on 04/27/20 1727 Pyridostigmine [place] (Mestinon) 60 Mg Tab, 60 MG PO TID, (Reported) Entered as Reported by: RICCI BLAIR on 07/07/15 1445 Pyridoxine HCl (Vitamin B-6) 100 Mg Tablet, 100 MG PO DAILY, (Reported) Entered as Reported by: ANGELO SETH on 06/09/19 1340 Ropinirole HCl (Ropinirole HCl) 0.5 Mg Tablet, 0.5 MG PO HS, (Reported) Entered as Reported by: RICCI BLAIR on 07/07/15 1540 Spironolactone (Spironolactone) 25 Mg Tablet, 25 MG PO DAILY, (Reported) Entered as Reported by: RICCI BLAIR on 07/07/15 1529 Temazepam (Temazepam) 30 Mg Capsule, 30 MG PO HS PRN for SLEEP, (Reported) Entered as Reported by: ANGELO SETH on 06/09/19 1340 Terbinafine HCl (Terbinafine HCl) 250 Mg Tablet, 250 MG PO DAILY, (Reported) Entered as Reported by: MAY MASON on 04/17/20 1131 Review of Systems Review of Systems Constitutional: see HPI Respiratory: See HPI Cardiovascular: See HPI Gastrointestinal: See HPI Genitourinary: See HPI Musculoskeletal: see HPI Skin: see HPI Psychiatric/Neurological: See HPI Endocrine: See HPI Hematologic/Lymphatic: See HPI All Other Systems Reviewed Negative Unless Noted: Yes Past Eouioqw-Zlmqof-Nbsdhu Hx Patient Social History Tobacco Use?: No Substance use?: No Alcohol Use?: No Pt feels they are or have been: No Immunizations Up To Date First/Initial COVID19 Vaccinat: Jul 2021 Second COVID19 Vaccination Miki: Jul 2021 Third COVID19 Vaccination Date: Jul 2021 Seasonal Allergies Seasonal Allergies: No Past Medical History Surgery/Hospitalization HX: hospice for mystenia gravis Surgeries: Yes (ORIF left hip, right shoulder sx, cholecystectomy, spleenectomy) Gallbladder, Orthopedic Respiratory: Yes Pneumonia Currently Using CPAP: No Currently Using BIPAP: No Cardiac: Yes Neurological: Yes (MYASTHENIA GRAVIS) Reproductive Disorders: No Female Reproductive Disorders: Denies Sexually Transmitted Disease: No HIV/AIDS: No Genitourinary: No Gastrointestinal: Yes (GASTRITIS, MALNUTRITION, GASTRIC BYPASS, STOMACH STAPLING) Pancreatitis, Chronic Diarrhea Musculoskeletal: Yes (Kyphoplasty vertebrae of compression fx) Osteoporosis, Fractures Endocrine: No HEENT: Yes Tonsilitis Loss of Vision: Denies Hearing Impairment: Denies Cancer: No Psychosocial: Yes Anxiety Integumentary: No Blood Disorders: No Adverse Reaction/Blood Tranf: No Family Medical History Diabetes mellitus 19 MOTHER FH: lung cancer 19 FATHER No Pertinent Family Hx Physical Exam Vital Signs Vital Signs - First Documented 01/16/22 18:20 Temp 38.1 Pulse 136 Resp 18 B/P (MAP) 116/63 (80) Pulse Ox 96 O2 Delivery Room Air Capillary Refill : Less Than 3 Seconds Height, Weight, BMI Height: 5'5.00" Weight: 113lbs. 0oz. 51.713358ab; 18.00 BMI Method:Stated General Appearance: No Apparent Distress, WD/WN HEENT: Pharynx Normal Neck: Full Range of Motion, Normal Inspection, Non Tender Respiratory: Lungs Clear, Normal Breath Sounds Cardiovascular: No Edema Gastrointestinal: Soft, Tenderness (PEG tube insertion site with erythema and drainage. ) Neurologic/Psychiatric: Alert, Oriented x3 Skin: Normal Color Focused Exam Sepsis Stage: Sepsis Lactate Level 01/16/22 15:05: Lactic Acid Level 3.42*H 01/16/22 21:05: Lactic Acid Level 3.30*H Time of Focused Exam: 18:20 Respiratory: Lungs Clear Skin: rash Lactic Acid Level Laboratory Tests Test 01/16/22 15:05 01/16/22 21:05 Lactic Acid Level 3.42 MMOL/L (0.50-2.00) *H 3.30 MMOL/L (0.50-2.00) *H Within 3hrs of presentation: Admin fluids, Admin 30ml/kg IBW due to BMI>30, Admin ABX, Blood cultures prior to ABX's, Focus exam, Lactate level Progress/Results/Core Measures Results/Orders Lab Results Laboratory Tests Test 01/16/22 15:05 01/16/22 18:23 01/16/22 21:05 Range/Units Lactic Acid Level 3.42 *H 3.30 *H 0.50-2.00 MMOL/L White Blood Count 22.0 H 4.3-11.0 10^3/uL Red Blood Count 4.59 3.80-5.11 10^6/uL Hemoglobin 14.1 11.5-16.0 g/dL Hematocrit 43 35-52 % Mean Corpuscular Volume 94 80-99 fL Mean Corpuscular Hemoglobin 31 25-34 pg Mean Corpuscular Hemoglobin Concent 33 32-36 g/dL Red Cell Distribution Width 13.9 10.0-14.5 % Platelet Count 564 H 130-400 10^3/uL Mean Platelet Volume 9.5 9.0-12.2 fL Immature Granulocyte % (Auto) 1 % Neutrophils (%) (Auto) 78 H 42-75 % Lymphocytes (%) (Auto) 12 12-44 % Monocytes (%) (Auto) 9 0-12 % Eosinophils (%) (Auto) 0 0-10 % Basophils (%) (Auto) 1 0-10 % Neutrophils # (Auto) 17.0 H 1.8-7.8 10^3/uL Lymphocytes # (Auto) 2.6 1.0-4.0 10^3/uL Monocytes # (Auto) 2.0 H 0.0-1.0 10^3/uL Eosinophils # (Auto) 0.1 0.0-0.3 10^3/uL Basophils # (Auto) 0.1 0.0-0.1 10^3/uL Immature Granulocyte # (Auto) 0.2 H 0.0-0.1 10^3/uL Neutrophils % (Manual) 80 % Lymphocytes % (Manual) 10 % Monocytes % (Manual) 6 % Eosinophils % (Manual) 0 % Basophils % (Manual) 1 % Band Neutrophils 1 % Atypical Lymphocytes 2 % D-Dimer 1.28 H 0.00-0.49 UG/ML Sodium Level 133 L 135-145 MMOL/L Potassium Level 4.3 3.6-5.0 MMOL/L Chloride Level 96 L 98-107 MMOL/L Carbon Dioxide Level 26 21-32 MMOL/L Anion Gap 11 5-14 MMOL/L Blood Urea Nitrogen 18 7-18 MG/DL Creatinine 0.95 0.60-1.30 MG/DL Estimat Glomerular Filtration Rate 64 BUN/Creatinine Ratio 19 Glucose Level 156 H 70-105 MG/DL Calcium Level 9.1 8.5-10.1 MG/DL Corrected Calcium 9.7 8.5-10.1 MG/DL Total Bilirubin 0.3 0.1-1.0 MG/DL Aspartate Amino Transf (AST/SGOT) 29 5-34 U/L Alanine Aminotransferase (ALT/SGPT) 12 0-55 U/L Alkaline Phosphatase 151 H 40-136 U/L Troponin I < 0.30 <0.30 NG/ML Pro-B-Type Natriuretic Peptide 483.1 H <75.0 PG/ML Total Protein 6.8 6.4-8.2 GM/DL Albumin 3.2 3.2-4.5 GM/DL My Orders Orders - BOB QUINTERO DO Cbc With Automated Diff (01/16/22 18:39) Comprehensive Metabolic Panel (01/16/22 18:39) Chest 1 View Ap/Pa Only (01/16/22 18:39) Troponin I Fs (01/16/22 18:39) Probnp Fs (01/16/22 18:39) Fibrin Degradation Products (01/16/22 18:39) Manual Differential (01/16/22 18:23) Ns Iv 1000 Ml (Sodium Chloride 0.9%) (01/16/22 19:00) Lactic Acid Analyzer (01/16/22 18:49) Blood Culture (01/16/22 18:49) Blood Culture (01/16/22 18:53) Piperacillin Sodium/Tazobactam (Zosyn Vi (01/16/22 20:30) Ct Angio Chest W (01/16/22 20:22) Medications Given in ED Current Medications Medications Dose Ordered Sig/Lola Route Start Time Stop Time Status Last Admin Dose Admin Iohexol 125 ml ONCE ONCE IV 01/16/22 20:30 01/16/22 21:32 DC 01/16/22 21:02 125 ML Piperacillin Sod/ Tazobactam Sod 4.5 gm/Sodium Chloride 100 ml @ 200 mls/hr ONCE ONCE IV 01/16/22 20:30 01/16/22 20:59 DC 01/16/22 21:04 200 MLS/HR Sodium Chloride 10 ml NEEDED PRN IV 01/16/22 20:30 01/16/22 21:02 10 ML Sodium Chloride 100 ml ONCE ONCE IV 01/16/22 20:30 01/16/22 21:32 DC 01/16/22 21:02 80 ML Vital Signs/I&O 01/16/22 18:20 Temp 38.1 Pulse 136 Resp 18 B/P (MAP) 116/63 (80) Pulse Ox 96 O2 Delivery Room Air Blood Pressure Mean: 80 Departure Communication (Admissions) CTA chest: No PE. EKG: Sinus tach. Patient with sepsis with G-tube insertion site infection. IV fluids and broad- spectrum antibiotics given. Dr. Pearson admitted. Dr. Matt from e-ICU consulted. Courtesy bridge orders provided. Impression Primary Impression: Sepsis Additional Impression: G-tube site cellulitis Disposition: ADMITTED INPATIENT Condition: Critical Departure-Patient Inst. Referrals: POOJA GORDON MD (PCP/Family) Primary Care Physician BOB QUINTERO DO Jan 16, 2022 21:10
--- NOTE | 2022-01-16 21:17 | Diagnostic Imaging Report ---
PROCEDURE: CT angiography of the chest. TECHNIQUE: After intravenous administration of contrast, thin section axial CT angiography of the chest was performed. 3D MIP reconstructions were made. All CT scans use one or more of the following dose optimizing techniques: automated exposure control, MA and/or KvP adjustment based on patient size and exam type or iterative reconstruction. INDICATION: Chest pain with elevated d-dimer. COMPARISON: CT abdomen and pelvis of 10/15/2021. FINDINGS: Vasculature: No pulmonary emboli. No CT evidence of pulmonary hypertension or right ventricular strain. Thoracic aorta is normal in caliber. No aortic dissection or pseudoaneurysm. Heart and mediastinum: Visualized thyroid is normal. No supraclavicular, axillary, or intra-thoracic lymphadenopathy. The heart is normal in size without pericardial effusion. Circumferential wall thickening in the distal one-third of the esophagus may be due to esophagitis. Pleura: No pleural effusion or pneumothorax. Lungs and airway: No endoluminal lesion in the trachea or central bronchi. No pneumonia or edema. There is small amount of subpleural atelectasis within both lung bases. Upper abdomen: No acute abnormality has developed in the upper abdomen. Please see report from CT abdomen and pelvis from 10/15/2021 for more complete details. Musculoskeletal: No concerning osseous lesion. Prior vertebral augmentation procedure at T8. Old T7 compression fracture. IMPRESSION: 1. No acute cardiopulmonary process. Specifically, no pulmonary emboli or acute aortic syndrome. 2. Low-attenuation wall thickening in the lower one-third of the esophagus may represent esophagitis. Dictated by: Dictated on workstation # [id number]
--- NOTE | 2022-01-17 02:42 | Tele-ICU Consult ---
History of Present Illness History of Present Illness Date Seen by Provider: Jan 17, 2022 Time Seen by Provider: 02:44 Date of Admission ED Course: Patient is a 71 year old female with h/o myasthenia gravis who pr esents with chest pain, palpitations, and fever. Symptoms onset for the past 2 days with pain, redness, swelling and drainage around peg tube. Tube placed 1 year ago per [facility]. Sepsis: iv fluids 2l / empiric abx/ lactic acid Pt looks comfortable, not in pain. Allergies and Home Medications Allergies Coded Allergies: diphenhydramine (Verified Allergy, Intermediate, MUSCLE PAIN; AGITATION, 06/09/19) promethazine (Verified Allergy, Mild, AGITATION, 06/09/19) Home Medications Abaloparatide 1.56 Ml Pen.injctr, 80 MCG SC HS, (Reported) Calcium Citrate/Vitamin D3 1 Each Tablet, 2 TAB.CHEW PO TIDWM, (Reported) 500MG/400 UNITS Carvedilol 3.125 Mg Tablet, 3.125 MG PO BID, (Reported) HOLD FOR HR <55 BPM OR SBP<95 Cefdinir 300 Mg Capsule, 300 MG PO BID Prescribed by: BART NORMAN on 10/29/21 1825 Cyanocobalamin (Vitamin B-12) 500 Mcg Tablet, 500 MCG PO DAILY, (Reported) Duloxetine HCl 60 Mg Capsule.dr, 60 MG PO DAILY, (Reported) Fentanyl 1 Each Patch.td72, 25 MCG TD Q72H, (Reported) Gabapentin 300 Mg Capsule, 300 MG PO QID, (Reported) Hydrocodone/Acetaminophen 1 Each Tablet, 1-2 TAB PO Q6H PRN for PAIN-MODERATE (5-7) Prescribed by: BOB QUINTERO on 06/07/21 0220 Immune Globulin,Gamma(IgG) 1 Gm/5 Ml Vial, 1 MG INJ FRIDAY, (Reported) TAKES 14GM (10GM+4GM) ON MONDAYS TAKES 11GM (10GM +1GM) ON TUESDAYS Immune Globulin,Gamma(IgG) 10 Gm/50 Ml Vial, 10 GM INJ , (Reported) TAKES 14GM (10GM+4GM) ON MONDAYS TAKES 11GM (10GM +1GM) ON TUESDAYS Immune Globulin,Gamma(IgG) 4 Gm/20 Ml Vial, 4 GM INJ FRIDAY, (Reported) TAKES 14GM (10GM+4GM) ON MONDAYS TAKES 11GM (10GM +1GM) ON TUESDAYS Levothyroxine Sodium 50 Mcg Tablet, 50 MCG PO HS, (Reported) Lipase/Protease/Amylase 1 Each Capsule.dr, 3 CAP PO TIDWM, (Reported) Lipase/Protease/Amylase 1 Each Capsule.dr, 2 CAP PO WITH SNACKS, (Reported) Meloxicam 15 Mg Tablet, 15 MG PO DAILY, (Reported) Multivitamin 1 Each Tablet, 2 TAB PO DAILY, (Reported) Omeprazole 40 Mg Capsule.dr, 40 MG PO DAILY, (Reported) Oxycodone HCl 5 Mg Tablet, 5 MG PO Q6H PRN for PAIN-SEVERE (8-10) Prescribed by: BART NORMAN on 10/29/21 181 Oxycodone HCl/Acetaminophen 1 Each Tablet, 0.5 EA PO Q6H PRN for PAIN-MODERATE (5-7), (Reported) Oxycodone HCl/Acetaminophen 1 Each Tablet, 1 TAB PO Q4H PRN for PAIN- BREAKTHROUGH Prescribed by: KIRT JAMES on 06/13/20 2342 Pravastatin Sodium 10 Mg Tablet, 10 MG PO HS, (Reported) Prednisone 5 Mg Tablet, 5 MG PO DAILY, (Reported) TAKES 15MG (10MG +5MG) DAILY Prednisone 10 Mg Tab, 15 MG PO DAILY, (Reported) TAKES 15MG (10MG +5MG) DAILY Prednisone 20 Mg Tab, 20 MG PO DAILY Prescribed by: ALCON QUINTERO on 04/27/20 1727 Pyridostigmine [place] 60 Mg Tab, 60 MG PO TID, (Reported) Pyridoxine HCl 100 Mg Tablet, 100 MG PO DAILY, (Reported) Ropinirole HCl 0.5 Mg Tablet, 0.5 MG PO HS, (Reported) Spironolactone 25 Mg Tablet, 25 MG PO DAILY, (Reported) Temazepam 30 Mg Capsule, 30 MG PO HS PRN for SLEEP, (Reported) Terbinafine HCl 250 Mg Tablet, 250 MG PO DAILY, (Reported) Past Medical/Social/Family Hx Patient Social History Tobacco Use?: No Substance use?: No Alcohol Use?: No Pt stated abuse/neglect: No Immunizations Up To Date First/Initial COVID19 Vaccinat: Jul 2021 Second COVID19 Vaccination Miki: Jul 2021 Tetanus Booster (TDap): Less Than 5 Years Date of Pneumonia Vaccine: Aug 18, 2012 Current Status Communicates: Verbally Primary Language: Malawian Preferred Spoken Language: Malawian Past Medical History MG sp peg Review of Systems Constitutional: see HPI Focused Exam Sepsis Stage: Severe Sepsis Lactate Level 01/16/22 15:05: Lactic Acid Level 3.42*H 01/16/22 21:05: Lactic Acid Level 3.30*H 01/17/22 01:04: Lactic Acid Level 2.93*H Height, Weight, BMI Height: 5'5.00" Weight: 113lbs. 0oz. 51.541932oh; 18.00 BMI Method:Stated Time of Focused Exam: 18:20 Respiratory: Lungs Clear, Normal Breath Sounds, No Accessory Muscle Use Lactic Acid Level Laboratory Tests Test 01/17/22 01:04 Lactic Acid Level 2.93 MMOL/L (0.50-2.00) *H Exam Exam Patient acknowledged, consented, and participated in this virtual visit which was conducted using real time audio/video Vital Signs Date Time Temp Pulse Resp B/P (MAP) Pulse Ox O2 Delivery O2 Flow Rate FiO2 01/16/22 23:10 36.5 116 20 104/55 95 Room Air 01/16/22 18:20 38.1 136 18 116/63 (80) 96 Room Air I & O 01/17/22 06:59 Intake Total 2000 ml Balance 2000 ml Height & Weight Height: 5'5.00" Weight: 113lbs. 0oz. 51.987111go; 18.00 BMI Method:Stated General Appearance: No Apparent Distress, WD/WN HEENT: Pharynx Normal Neck: Full Range of Motion, Normal Inspection, Non Tender Respiratory: Lungs Clear Cardiovascular: No Edema Capillary Refill: Less Than 3 Seconds Neurologic/Psychiatric: Alert, Oriented x3 Skin: Normal Color Results Lab Laboratory Tests 01/16/22 18:23 Assessment/Plan Assessment/Plan Sepis -possible source abd wall cellulitis -consider peg dislodgment -ct abdomen pending - on abx/ trend lactic acid DVT prophylaxis pt visualized ILIDIA GAYTAN MD Jan 17, 2022 02:42
[2022-01-17] MEDS ORDERED: VANCOMYCIN 1 GM/NS 250 ML IVPB IV ONE ×2 (03:00)
[2022-01-17] MEDS: D5 1/2 NS W/KCL 20 MEQ/L 1,000 ML IV SCH ×4 (03:52→22:50)
[2022-01-17] MEDS ORDERED: morphine INJ 4 MG/ML 1 ML (VIAL/SYRINGE) IVP PRN (04:15)
[2022-01-17] MEDS ORDERED: HYDROmorphone 2 MG/ML VIAL (DILAUDID) IV ONE (04:15)
[2022-01-17 04:51] LABS: BASOPHILS # (AUTO) 0.1 10^3/uL (0.0-0.1); BASOPHILS % (AUTO) 1 % (0-10); EOSINOPHILS % (AUTO) 0 % (0-10); HEMATOCRIT 36 % (35-52); HEMOGLOBIN 11.7 g/dL (11.5-16.0); LYMPHOCYTES # (AUTO) 4.1 10^3/uL (1.0-4.0); LYMPHOCYTES % (AUTO) 18 % (12-44); MEAN CORPUSCULAR HEMOGLOBIN 31 pg (25-34); MEAN CORPUSCULAR HGB CONC 32 g/dL (32-36); MEAN CORPUSCULAR VOLUME 96 fL (80-99); MEAN PLATELET VOLUME 9.9 fL (9.0-12.2); MONOCYTES # (AUTO) 3.4 10^3/uL (0.0-1.0); MONOCYTES % (AUTO) 15 % (0-12); NEUTROPHILS # (AUTO) 14.7 10^3/uL (1.8-7.8); NEUTROPHILS % (AUTO) 65 % (42-75); PLATELET COUNT 483 10^3/uL (130-400); WHITE BLOOD COUNT 22.5 10^3/uL (4.3-11.0)
[2022-01-17 05:09] LABS: ALBUMIN 2.4 GM/DL (3.2-4.5); POTASSIUM 3.8 MMOL/L (3.6-5.0)
[2022-01-17 05:10] LABS: CALCIUM 7.9 MG/DL (8.5-10.1)
[2022-01-17 05:12] LABS: TOTAL PROTEIN 5.1 GM/DL (6.4-8.2)
--- NOTE | 2022-01-17 05:13 | History & Physical-Hospitalist ---
History of Present Illness HPI/Chief Complaint CC: Sepsis from J tube infection HPI: This is a 71 yr old female clinic pt of [facility]. She has a past medical history of myasthenia gravis. She receives supplement feedings through a J tube. She was found to have an infection in the J tube. Ultimately fell out this morning. She was placed on broad spectrum antibiotics. Will have Dr. Serrano replace the J tube, and will monitor pt closely. Continue IV fluids. Source: patient, old records Exam Limitations: no limitations Date Seen 01/17/22 Time Seen by a Provider: 10:00 Attending Physician Wade Jefferson MD PCP Admitting Physician: Brenda Pearson DO Attending Physician: Brenda Pearson DO Referring Physician Date of Admission Jan 16, 2022 at 23:52 Home Medications & Allergies Home Medications Reviewed patient Home Medication Reconciliation performed by pharmacy medication reconciliations fire technician and/or nursing. Patients Allergies have been reviewed. Allergies Allergies Coded Allergies diphenhydramine (Verified Allergy, Intermediate, MUSCLE PAIN; AGITATION, 06/09/19) promethazine (Verified Allergy, Mild, AGITATION, 06/09/19) Past Qeywkcr-Pzbsop-Mokeuu Hx Patient Social History Marrital Status: Employed/Student: retired Tobacco Use?: No Smoking Status: Never a Smoker Substance use?: No Alcohol Use?: No Pt feels they are or have been: No Immunizations Up To Date Date of Influenza Vaccine: Jul 06, 2015 First/Initial COVID19 Vaccinat: Jul 2021 Second COVID19 Vaccination Miki: Jul 2021 Tetanus Booster (TDap): Less Than 5 Years Date of Pneumonia Vaccine: Aug 18, 2012 Seasonal Allergies Seasonal Allergies: No Current Status Communicates: Verbally Primary Language: Kosovan Preferred Spoken Language: Kosovan Past Medical History Surgeries: Gallbladder, Orthopedic Pneumonia Currently Using CPAP: No Currently Using BIPAP: No Sexually Transmitted Disease: No HIV/AIDS: No Pancreatitis, Chronic Diarrhea Osteoporosis, Fractures Tonsilitis Loss of Vision: Denies Hearing Impairment: Denies Anxiety Blood Disorders: No Adverse Reaction/Blood Tranf: No MG sp peg Family Medical History Diabetes mellitus 19 MOTHER FH: lung cancer 19 FATHER No Pertinent Family Hx Review of Systems Constitutional: see HPI, dizziness, fever, malaise, weakness EENTM: no symptoms reported Respiratory: no symptoms reported Cardiovascular: no symptoms reported Gastrointestinal: abdominal pain, loss of appetite, nausea Genitourinary: no symptoms reported Musculoskeletal: no symptoms reported Skin: no symptoms reported Psychiatric/Neurological: No Symptoms Reported All Other Systems Reviewed Negative Unless Noted: Yes Physical Exam Physical Exam Vital Signs Vital Signs - First Documented 01/16/22 18:20 Temp 38.1 Pulse 136 Resp 18 B/P (MAP) 116/63 (80) Pulse Ox 96 O2 Delivery Room Air Capillary Refill : Less Than 3 Seconds Height, Weight, BMI Height: 5'5.00" Weight: 113lbs. 0oz. 51.773415su; 18.00 BMI Method:Stated General Appearance: No Apparent Distress, Chronically ill Eyes: Right Eye Normal Inspection, Right Eye PERRL HEENT: PERRL/EOMI, Normal ENT Inspection, Pharynx Normal, Moist Mucous Membranes Neck: Full Range of Motion, Normal Inspection, Non Tender Respiratory: Chest Non Tender, Lungs Clear, Normal Breath Sounds, No Accessory Muscle Use, No Respiratory Distress Cardiovascular: Regular Rate, Rhythm, No Edema, No Gallop, No JVD, No Murmur, Normal Peripheral Pulses Gastrointestinal: Normal Bowel Sounds, No Organomegaly, No Pulsatile Mass, Soft, Tenderness (G-tube erythema) Back: Normal Inspection, No CVA Tenderness, No Vertebral Tenderness Extremity: Normal Capillary Refill, Normal Inspection, Normal Range of Motion, Non Tender, No Calf Tenderness, No Pedal Edema Neurologic/Psychiatric: Alert, Oriented x3, No Motor/Sensory Deficits, Normal Mood/Affect Skin: Normal Color, Warm/Dry Lymphatic: No Adenopathy Results Results/Procedures Labs Laboratory Tests 01/16/22 18:23 01/17/22 04:01 01/18/22 04:29 Patient resulted labs reviewed. Assessment/Plan Admission Diagnosis Assessment: Sepsis Feeding tube infection Myasthenia gravis History pneumonia Leukocytosis Chronic pancreatitis Chronic diarrhea Plan: ICU IV fluid Restart home meds Consult Dr. Serrano Admission Status: Inpatient Order (span 2 midnights) Reason for Inpatient Admission: sepsis Diagnosis/Problems Diagnosis/Problems (1) G-tube site cellulitis Status: Acute (2) Pancreatitis, chronic Status: Acute (3) Sepsis Status: Acute (4) Myasthenia gravis Status: Acute BRENDA PEARSON DO Jan 17, 2022 05:13
[2022-01-17 05:14] LABS: BILIRUBIN,TOTAL 0.5 MG/DL (0.1-1.0)
[2022-01-17 05:15] LABS: CREATININE SERUM 0.77 MG/DL (0.60-1.30); PHOSPHORUS 3.3 MG/DL (2.3-4.7)
[2022-01-17] MEDS ORDERED: ACETAMINOPHEN 650 MG SUPP (TYLENOL) PR PRN (05:15)
[2022-01-17] MEDS ORDERED: ONDANSETRON 4 MG/2 ML (SDV) Z0FRAN IVP PRN (05:15)
[2022-01-17] MEDS ORDERED: VANCOMYCIN INJECTION 0.1 MG in NS (IVPB) 250 ML IV SCH (05:15)
[2022-01-17 05:18] LABS: MAGNESIUM 1.7 MG/DL (1.6-2.4)
[2022-01-17] MEDS: PIPERACILLIN SODIUM/TAZOBACTAM 4.5 GM in NS (IVPB) 100 ML IV SCH ×3 (05:50→18:37)
[2022-01-17] MEDS: POTASSIUM CL 10MEQ/50ML IVPB 50 ML IV SCH (05:59)
[2022-01-17] MEDS: KCL 20 MEQ TAB (K-DUR) PO SCH (05:59)
[2022-01-17] MEDS: MAGNESIUM 1 GM/100 ML IVPB 100 ML IV SCH ×3 (05:59→10:25)
--- NOTE | 2022-01-17 06:36 | Diagnostic Imaging Report ---
PROCEDURE: CT abdomen and pelvis with contrast. TECHNIQUE: Multiple contiguous axial images were obtained through the abdomen and pelvis after administration of intravenous contrast. Auto Exposure Controls were utilized during the CT exam to meet ALARA standards for radiation dose reduction. All CT scans use one or more of the following dose optimizing techniques: automated exposure control, MA and/or KvP adjustment based on patient size and exam type or iterative reconstruction. INDICATION: Abdominal pain/peritonitis The lung bases are clear. There is atelectasis at both lung bases. Liver parenchyma is unremarkable. There are dilated intra and extra hepatic bile ducts. The gallbladder surgically absent. There are calcifications in the pancreas consistent with chronic pancreatitis. There is no evidence for acute pancreatitis. Spleen appears be surgically absent. Adrenals are normal. There is no hydronephrosis in either kidney. There is aortic atherosclerosis. Small bowel is not dilated. Patient's had prior bowel resection. There is large amount stool in the colon. There is an ileostomy left lower quadrant. Urinary bladder is normal. Uterus is surgically absent. IMPRESSION: Moderate to severe fecal stasis. Chronic pancreatitis. Dilated biliary system appears similar to prior exam dated 10/07/2021. There is no ascites. Dictated by: Dictated on workstation # [id number]
--- NOTE | 2022-01-17 08:08 | Consultation-Cardiology ---
HPI-Cardiology Cardiology Consultation Date of Consultation 01/17/22 Date of Admission Time Seen by Provider: 08:04 Indication: Congestive heart failure HPI 71-year-old lady with history of feeding tube. Reporting history of congestive heart failure, reporting that her last echocardiogram done in August 2021 at and her ejection fraction was 50%. Nonischemic cardiomyopathy, reporting having cardiac catheterization done 2 to 3 years ago and having normal coronaries. She started having fever, pain at the feeding tube site. Admitted for feeding tube infection and sepsis. Still tachycardic, reporting that the feeding tube came out today. Home Medications & Allergies Allergies: Coded Allergies: diphenhydramine (Verified Allergy, Intermediate, MUSCLE PAIN; AGITATION, 06/09/19) promethazine (Verified Allergy, Mild, AGITATION, 06/09/19) Home Medication List Reviewed: Yes KQR-Wlphat-Gbynkh Hx Patient Social History Marital Status: Employed/Student: retired Smoking Status: Never a Smoker 2nd Hand Smoke Exposure: No Recent Hopitalizations: No Have you traveled recently?: No Alcohol Use?: No Immunizations Up To Date Date of Pneumonia Vaccine: Aug 18, 2012 Date of Influenza Vaccine: Jul 06, 2015 Past Medical History Discussed below Family Medical History Significant Family History: No Pertinent Family Hx Family History: Diabetes mellitus 19 MOTHER FH: lung cancer 19 FATHER Review of Systems-General Review of Systems Constitutional: see HPI, fever, malaise, weakness EENTM: see HPI Respiratory: see HPI; No cough; dyspnea on exertion; No hemoptysis, No orthopnea, No phlegm, No short of breath, No stridor, No wheezing, No other Cardiovascular: see HPI, chest pain; No edema, No Hx of Intervention, No palpitations, No syncope, No vascular heart diseas, No other Gastrointestinal: see HPI Genitourinary: see HPI Musculoskeletal: see HPI, joint pain Skin: see HPI Psychiatric/Neurological: See HPI All Other Systems Reviewed Negative Unless Noted: Yes Reviewed Test Results Reviewed Test Results Lab Laboratory Tests Test 01/16/22 15:05 01/16/22 18:23 01/16/22 21:05 01/17/22 01:04 Range/Units Lactic Acid Level 3.42 *H 3.30 *H 2.93 *H 0.50-2.00 MMOL/L White Blood Count 22.0 H 4.3-11.0 10^3/uL Red Blood Count 4.59 3.80-5.11 10^6/uL Hemoglobin 14.1 11.5-16.0 g/dL Hematocrit 43 35-52 % Mean Corpuscular Volume 94 80-99 fL Mean Corpuscular Hemoglobin 31 25-34 pg Mean Corpuscular Hemoglobin Concent 33 32-36 g/dL Red Cell Distribution Width 13.9 10.0-14.5 % Platelet Count 564 H 130-400 10^3/uL Mean Platelet Volume 9.5 9.0-12.2 fL Immature Granulocyte % (Auto) 1 % Neutrophils (%) (Auto) 78 H 42-75 % Lymphocytes (%) (Auto) 12 12-44 % Monocytes (%) (Auto) 9 0-12 % Eosinophils (%) (Auto) 0 0-10 % Basophils (%) (Auto) 1 0-10 % Neutrophils # (Auto) 17.0 H 1.8-7.8 10^3/uL Lymphocytes # (Auto) 2.6 1.0-4.0 10^3/uL Monocytes # (Auto) 2.0 H 0.0-1.0 10^3/uL Eosinophils # (Auto) 0.1 0.0-0.3 10^3/uL Basophils # (Auto) 0.1 0.0-0.1 10^3/uL Immature Granulocyte # (Auto) 0.2 H 0.0-0.1 10^3/uL Neutrophils % (Manual) 80 % Lymphocytes % (Manual) 10 % Monocytes % (Manual) 6 % Eosinophils % (Manual) 0 % Basophils % (Manual) 1 % Band Neutrophils 1 % Atypical Lymphocytes 2 % D-Dimer 1.28 H 0.00-0.49 UG/ML Sodium Level 133 L 135-145 MMOL/L Potassium Level 4.3 3.6-5.0 MMOL/L Chloride Level 96 L 98-107 MMOL/L Carbon Dioxide Level 26 21-32 MMOL/L Anion Gap 11 5-14 MMOL/L Blood Urea Nitrogen 18 7-18 MG/DL Creatinine 0.95 0.60-1.30 MG/DL Estimat Glomerular Filtration Rate 64 BUN/Creatinine Ratio 19 Glucose Level 156 H 70-105 MG/DL Calcium Level 9.1 8.5-10.1 MG/DL Corrected Calcium 9.7 8.5-10.1 MG/DL Total Bilirubin 0.3 0.1-1.0 MG/DL Aspartate Amino Transf (AST/SGOT) 29 5-34 U/L Alanine Aminotransferase (ALT/SGPT) 12 0-55 U/L Alkaline Phosphatase 151 H 40-136 U/L Troponin I < 0.30 <0.30 NG/ML Pro-B-Type Natriuretic Peptide 483.1 H <75.0 PG/ML Total Protein 6.8 6.4-8.2 GM/DL Albumin 3.2 3.2-4.5 GM/DL Test 01/17/22 03:25 01/17/22 04:01 01/17/22 06:25 Range/Units Lactic Acid Level 2.21 *H 1.89 0.50-2.00 MMOL/L White Blood Count 22.5 H 4.3-11.0 10^3/uL Red Blood Count 3.77 L 3.80-5.11 10^6/uL Hemoglobin 11.7 11.5-16.0 g/dL Hematocrit 36 35-52 % Mean Corpuscular Volume 96 80-99 fL Mean Corpuscular Hemoglobin 31 25-34 pg Mean Corpuscular Hemoglobin Concent 32 32-36 g/dL Red Cell Distribution Width 14.0 10.0-14.5 % Platelet Count 483 H 130-400 10^3/uL Mean Platelet Volume 9.9 9.0-12.2 fL Immature Granulocyte % (Auto) 1 % Neutrophils (%) (Auto) 65 42-75 % Lymphocytes (%) (Auto) 18 12-44 % Monocytes (%) (Auto) 15 H 0-12 % Eosinophils (%) (Auto) 0 0-10 % Basophils (%) (Auto) 1 0-10 % Neutrophils # (Auto) 14.7 H 1.8-7.8 10^3/uL Lymphocytes # (Auto) 4.1 H 1.0-4.0 10^3/uL Monocytes # (Auto) 3.4 H 0.0-1.0 10^3/uL Eosinophils # (Auto) 0.0 0.0-0.3 10^3/uL Basophils # (Auto) 0.1 0.0-0.1 10^3/uL Immature Granulocyte # (Auto) 0.1 0.0-0.1 10^3/uL Sodium Level 135 135-145 MMOL/L Potassium Level 3.8 3.6-5.0 MMOL/L Chloride Level 101 98-107 MMOL/L Carbon Dioxide Level 21 21-32 MMOL/L Anion Gap 13 5-14 MMOL/L Blood Urea Nitrogen 15 7-18 MG/DL Creatinine 0.77 0.60-1.30 MG/DL Estimat Glomerular Filtration Rate 82 BUN/Creatinine Ratio 19 Glucose Level 110 H 70-105 MG/DL Calcium Level 7.9 L 8.5-10.1 MG/DL Corrected Calcium 9.2 8.5-10.1 MG/DL Phosphorus Level 3.3 2.3-4.7 MG/DL Magnesium Level 1.7 1.6-2.4 MG/DL Total Bilirubin 0.5 0.1-1.0 MG/DL Aspartate Amino Transf (AST/SGOT) 43 H 5-34 U/L Alanine Aminotransferase (ALT/SGPT) 19 0-55 U/L Alkaline Phosphatase 111 40-136 U/L Total Protein 5.1 L 6.4-8.2 GM/DL Albumin 2.4 L 3.2-4.5 GM/DL Physical Exam Physical Exam Vital Signs Vital Signs - First Documented 01/16/22 18:20 Temp 38.1 Pulse 136 Resp 18 B/P (MAP) 116/63 (80) Pulse Ox 96 O2 Delivery Room Air Capillary Refill : Less Than 3 Seconds Height, Weight, BMI Height: 5'5.00" Weight: 113lbs. 0oz. 51.964617by; 21.55 BMI Method:Stated General Appearance: No Apparent Distress, WD/WN Eyes: Bilateral Eye Normal Inspection, Bilateral Eye PERRL, Bilateral Eye EOMI HEENT: Pharynx Normal Neck: Full Range of Motion, Normal Inspection, Non Tender Respiratory: Lungs Clear Cardiovascular: Regular Rate, Rhythm, No Edema Gastrointestinal: Soft, Tenderness (PEG tube insertion site with erythema and drainage. ) Back: Normal Inspection, No CVA Tenderness, No Vertebral Tenderness Extremity: Normal Capillary Refill, Normal Inspection, Normal Range of Motion, Non Tender, No Calf Tenderness, No Pedal Edema Neurologic/Psychiatric: Alert, Oriented x3 Skin: Normal Color Lymphatic: No Adenopathy A/P-Cardiology Admission Diagnosis Sepsis Feeding tube infection Congestive heart failure, chronic compensated left ventricular systolic dysfunction, nonischemic cardiomyopathy Sinus tachycardia Assessment/Plan Sepsis, feeding tube infection. Receiving antibiotic, lactic acid has improved Managed by medical team Sinus tachycardia, probably secondary to sepsis. Continue with IV fluid and monitor. Congestive heart failure, chronic compensated left ventricular systolic dysfunction, reporting that her last ejection fraction was 50% per echo done at . Nonischemic cardiomyopathy. Coronary artery disease, reporting having cardiac catheterization done 2 to 3 years ago, normal coronaries. Hypothyroidism, followed and managed by primary care physician Arthritis. Chronic prednisone use, probably will require stress dose of steroids. SINCERE DASH MD Jan 17, 2022 08:08
[2022-01-17] MEDS: PANTOPRAZOLE 40 MG (PROTONIX) VIAL IV SCH (08:53)
[2022-01-17] MEDS: ENOXAPARIN INJECTION 30 MG/0.3 ML SYR SC SCH (08:54)
[2022-01-17] MEDS: HYDROmorphone 2 MG/ML VIAL (DILAUDID) IVP PRN ×3 (12:12→22:48)
[2022-01-17] MEDS ORDERED: LACTULOSE SYRUP 10GM/15ML (ENULOSE) 30ML UDC PO PRN (14:30)
[2022-01-17] MEDS: polyethylene glycoL POWDER 17 GM (MIRALAX) PACK PO SCH ×2 (14:43→20:44)
[2022-01-17] MEDS: DOCUSATE SODIUM 100 MG (COLACE) CAP PO SCH ×2 (14:43→20:44)
[2022-01-17] MEDS: SENNA W/DOCUSATE (SENOKOT S) TABLET PO SCH ×2 (14:43→20:44)
[2022-01-17] MEDS: VANCOMYCIN 500 MG/NS 100 ML IVPB IV SCH ×2 (15:26)
--- NOTE | 2022-01-17 20:54 | Consultation - Surgery ---
History of Present Illness History of Present Illness Patient Consulted On(dillon/time) 01/17/22 20:48 Time Seen by Provider: 12:03 Reason for Visit: Congestive heart failure History of Present Illness Surgery asked to consult regarding Gastrostomy tube problems; possible abscess HPI per ED: Patient is a 71 year old female with h/o myasthenia gravis who presents with chest pain, palpitations, and fever. Symptoms onset for the past 2 days with pain, redness, swelling and drainage around peg tube. Tube placed 1 year ago per [facility]. Patient had Timing/Duration: 1-3 hours Severity/Quality: moderate When I spoke to pt this afternoon she stated she came to the ER because of chest pain, but then was admitted for possible sepsis. Apparently some time around 4am when they were transferring her to the commode, the G-tube got pulled out. Nurse reported something that "looked like pus, come out of the opening on the abdomen". Pt denied abominal pain when I saw her, stated the tube was initially placed in November of last year. It is being used for fluids and meds. Allergies and Home Medications Allergies Coded Allergies: diphenhydramine (Verified Allergy, Intermediate, MUSCLE PAIN; AGITATION, 06/09/19) promethazine (Verified Allergy, Mild, AGITATION, 06/09/19) Patient Home Medication List Home Medication List Reviewed: Yes Abaloparatide (Tymlos) 1.56 Ml Pen.injctr, 80 MCG SC HS, (Reported) Entered as Reported by: MAY MASON on 04/17/20 1131 Calcium Citrate/Vitamin D3 (Calcium Citrate +Vit D3 Tablet) 1 Each Tablet, 2 TAB.CHEW PO TIDWM, (Reported) Entered as Reported by: ANGELO SETH on 06/09/19 1348 Carvedilol (Carvedilol) 3.125 Mg Tablet, 3.125 MG PO BID, (Reported) Entered as Reported by: ANGELO SETH on 06/09/19 1340 Cefdinir (Cefdinir) 300 Mg Capsule, 300 MG PO BID Prescribed by: BART NORMAN on 10/29/21 1825 Cyanocobalamin (Vitamin B-12) (B-12) 500 Mcg Tablet, 500 MCG PO DAILY, (Reported) Entered as Reported by: ANGELO SETH on 10/23/19 1340 Duloxetine HCl (Duloxetine HCl) 60 Mg Capsule.dr, 60 MG PO DAILY, (Reported) Entered as Reported by: ANGELO SETH on 06/09/19 134 Fentanyl (Fentanyl Patch 25 MCG) 1 Each Patch.td72, 25 MCG TD Q72H, (Reported) Entered as Reported by: MAY MASON on 04/17/20 113 Gabapentin (Neurontin) 300 Mg Capsule, 300 MG PO QID, (Reported) Entered as Reported by: MAY MASON on 04/17/20 113 Hydrocodone/Acetaminophen (Hydrocodone-Acetamin 5-325 mg) 1 Each Tablet, 1-2 TAB PO Q6H PRN for PAIN-MODERATE (5-7) Prescribed by: BOB QUINTERO on 06/07/21219 Immune Globulin,Gamma(IgG) (Hizentra) 1 Gm/5 Ml Vial, 1 MG INJ FRIDAY, (Reported) Entered as Reported by: AGNELO SETH on 06/09/191339 Immune Globulin,Gamma(IgG) (Hizentra) 10 Gm/50 Ml Vial, 10 GM INJ , (Reported) Entered as Reported by: MAY MASON on 04/17/201130 Immune Globulin,Gamma(IgG) (Hizentra) 4 Gm/20 Ml Vial, 4 GM INJ FRIDAY, (Reported) Entered as Reported by: MAY MASON on 04/17/201130 Levothyroxine Sodium (Euthyrox) 50 Mcg Tablet, 50 MCG PO HS, (Reported) Entered as Reported by: MAY MASON on 04/17/201130 Lipase/Protease/Amylase (Ashlee Layton 24,000 Units Capsule) 1 Each Capsule., 3 CAP PO TIDWM, (Reported) Entered as Reported by: ANGELO SETH on 06/09/191339 Lipase/Protease/Amylase (Ashlee Layton 24,000 Units Capsule) 1 Each Capsule., 2 CAP PO WITH SNACKS, (Reported) Entered as Reported by: ANGELO SETH on 06/09/191339 Meloxicam (Meloxicam) 15 Mg Tablet, 15 MG PO DAILY, (Reported) Entered as Reported by: ANGELO SETH on 06/09/191339 Morphine Sulfate (Morphine Sulfate ER) 15 Mg Tablet.er, (Reported) Entered as Reported by: JOHNIE PASTRANA on 08/02/20 0755 Multivitamin (Multivitamins) 1 Each Tablet, 2 TAB PO DAILY, (Reported) Entered as Reported by: ANGELO SETH on 06/09/19 1340 Omeprazole (Omeprazole) 40 Mg Capsule.dr, 40 MG PO DAILY, (Reported) Entered as Reported by: RICCI BLAIR on 07/07/15 1540 Oxycodone HCl (Oxycodone HCl) 5 Mg Tablet, 5 MG PO Q6H PRN for PAIN-SEVERE (8- 10) Prescribed by: BART NORMAN on 10/29/21 1818 Oxycodone HCl/Acetaminophen (Oxycodon-Acetaminophen 7.5-325) 1 Each Tablet, 0.5 EA PO Q6H PRN for PAIN-MODERATE (5-7), (Reported) Entered as Reported by: MAY MASON on 04/17/20 1131 Oxycodone HCl/Acetaminophen (Percocet 5-325 mg Tablet) 1 Each Tablet, 1 TAB PO Q4H PRN for PAIN-BREAKTHROUGH Prescribed by: KIRT JAMES on 06/13/20 2342 Oxycodone HCl/Acetaminophen (Oxycodone-Acetaminophen 5-325) 1 Each Tablet, (Reported) Entered as Reported by: JOHNIE PASTRANA on 08/02/20 0755 Pravastatin Sodium (Pravastatin Sodium) 10 Mg Tablet, 10 MG PO HS, (Reported) Entered as Reported by: ANGELO SETH on 06/09/19 1340 Prednisone (Prednisone) 5 Mg Tablet, 5 MG PO DAILY, (Reported) Entered as Reported by: MAY MASON on 04/17/20 1131 Prednisone (Prednisone) 10 Mg Tab, 15 MG PO DAILY, (Reported) Entered as Reported by: MAY MASON on 04/17/20 1131 Prednisone (Prednisone) 20 Mg Tab, 20 MG PO DAILY Prescribed by: ALCON QUINTERO on 04/27/20 1727 Pyridostigmine [place] (Mestinon) 60 Mg Tab, 60 MG PO TID, (Reported) Entered as Reported by: RICCI BLAIR on 07/07/15 1445 Pyridoxine HCl (Vitamin B-6) 100 Mg Tablet, 100 MG PO DAILY, (Reported) Entered as Reported by: ANGELO SETH on 06/09/19 1340 Ropinirole HCl (Ropinirole HCl) 0.5 Mg Tablet, 0.5 MG PO HS, (Reported) Entered as Reported by: RICCI BLAIR on 07/07/15 1540 Spironolactone (Spironolactone) 25 Mg Tablet, 25 MG PO DAILY, (Reported) Entered as Reported by: RICCI BLAIR on 07/07/15 1529 Temazepam (Temazepam) 30 Mg Capsule, 30 MG PO HS PRN for SLEEP, (Reported) Entered as Reported by: ANGELO SETH on 06/09/19 1340 Terbinafine HCl (Terbinafine HCl) 250 Mg Tablet, 250 MG PO DAILY, (Reported) Entered as Reported by: MAY MASON on 04/17/20 1131 Past Uiewtzz-Fqhpjm-Huftlr Hx Patient Social History Smoking Status: Never a Smoker 2nd Hand Smoke Exposure: No Recent Hopitalizations: No Alcohol Use?: No Have you traveled recently?: No Immunizations Up To Date Date of Pneumonia Vaccine: Aug 18, 2012 Date of Influenza Vaccine: Jul 06, 2015 Seasonal Allergies Seasonal Allergies: No Surgeries History of Surgeries: Yes (ORIF left hip, right shoulder sx, cholecystectomy, spleenectomy) Surgeries: Gallbladder, Orthopedic Respiratory History of Respiratory Disorde: Yes Respiratory Disorders: Pneumonia Cardiovascular History of Cardiac Disorders: Yes Neurological History of Neurological Disord: Yes (MYASTHENIA GRAVIS) Reproductive System Hx Reproductive Disorders: No Sexually Transmitted Disease: No HIV/AIDS: No Female Reproductive Disorders: Denies Genitourinary History of Genitourinary Disor: No Gastrointestinal History of Gastrointestinal Di: Yes (GASTRITIS, MALNUTRITION, GASTRIC BYPASS, STOMACH STAPLING) Gastrointestinal Disorders: Pancreatitis, Chronic Diarrhea Musculoskeletal History of Musculoskeletal Dis: Yes (Kyphoplasty vertebrae of compression fx) Musculoskeletal Disorders: Osteoporosis, Fractures Endocrine History of Endocrine Disorders: No HEENT History of HEENT Disorders: Yes HEENT Disorders: Tonsilitis Loss of Vision: Denies Hearing Impairment: Denies Cancer History of Cancer: No Psychosocial History of Psychiatric Problem: Yes Behavioral Health Disorders: Anxiety Integumentary History of Skin or Integumenta: No Blood Transfusions History of Blood Disorders: No Adverse Reaction to a Blood Tr: No Family Medical History Significant Family History: Cancer, Diabetes Family Medial History: Diabetes mellitus 19 MOTHER FH: lung cancer 19 FATHER Review of Systems-General Constitutional: fever, malaise, weakness EENTM: No blurred vision, No epistaxis, No throat swelling Respiratory: No cough, No dyspnea on exertion Cardiovascular: chest pain, palpitations Gastrointestinal: abdominal pain; No nausea, No vomiting Genitourinary: No dysuria, No frequency, No hematuria Musculoskeletal: joint pain, muscle weakness Skin: No change in color, No change in hair/nails Psychiatric/Neurological: Anxiety, Numbness, Pre-Existing Deficit, Weakness Physical Exam-General Problems Physical Exam Vital Signs Vital Signs - First Documented 01/16/22 18:20 Temp 38.1 Pulse 136 Resp 18 B/P (MAP) 116/63 (80) Pulse Ox 96 O2 Delivery Room Air Capillary Refill : Less Than 3 Seconds General Appearance: mild distress, thin Eyes: Bilateral Eye PERRL, Bilateral Eye EOMI HEENT: No scleral icterus (R), No scleral icterus (L) Neck: non-tender, supple Respiratory: lungs clear, normal breath sounds, no respiratory distress, no accessory muscle use Cardiovascular: regular rate, rhythm, no murmur Gastrointestinal: soft, no organomegaly, other (Jejunstomy tube site no purulent drainage, minimal erythema) Extremities: no calf tenderness Neurologic/Psychiatric: alert, oriented x 3 Skin: normal color, warm/dry Data Review Labs Laboratory Tests 01/16/22 21:05: Lactic Acid Level 3.30*H 01/17/22 01:04: Lactic Acid Level 2.93*H 01/17/22 03:25: Lactic Acid Level 2.21*H 01/17/22 04:01: White Blood Count 22.5H, Red Blood Count 3.77L, Hemoglobin 11.7, Hematocrit 36, Mean Corpuscular Volume 96, Mean Corpuscular Hemoglobin 31, Mean Corpuscular Hemoglobin Concent 32, Red Cell Distribution Width 14.0, Platelet Count 483H, Mean Platelet Volume 9.9, Immature Granulocyte % (Auto) 1, Neutrophils (%) (Auto) 65, Lymphocytes (%) (Auto) 18, Monocytes (%) (Auto) 15H, Eosinophils (%) (Auto) 0, Basophils (%) (Auto) 1, Neutrophils # (Auto) 14.7H, Lymphocytes # (Auto) 4.1H, Monocytes # (Auto) 3.4H, Eosinophils # (Auto) 0.0, Basophils # (Auto) 0.1, Immature Granulocyte # (Auto) 0.1, Sodium Level 135, Potassium Level 3.8, Chloride Level 101, Carbon Dioxide Level 21, Anion Gap 13, Blood Urea Nitrogen 15, Creatinine 0.77, Estimat Glomerular Filtration Rate 82, BUN/Creatinine Ratio 19, Glucose Level 110H, Calcium Level 7.9L, Corrected Calc ium 9.2, Phosphorus Level 3.3, Magnesium Level 1.7, Total Bilirubin 0.5, Aspartate Amino Transf (AST/SGOT) 43H, Alanine Aminotransferase (ALT/SGPT) 19, Alkaline Phosphatase 111, Total Protein 5.1L, Albumin 2.4L 01/17/22 06:25: Lactic Acid Level 1.89 Microbiology 01/16/22 Blood Culture - Preliminary, Resulted No growth Radiology Date of Exam:01/17/22 CT ABDOMEN/PELVIS W PROCEDURE: CT abdomen and pelvis with contrast. TECHNIQUE: Multiple contiguous axial images were obtained through the abdomen and pelvis after administration of intravenous contrast. Auto Exposure Controls were utilized during the CT exam to meet ALARA standards for radiation dose reduction. All CT scans use one or more of the following dose optimizing techniques: automated exposure control, MA and/or KvP adjustment based on patient size and exam type or iterative reconstruction. INDICATION: Abdominal pain/peritonitis The lung bases are clear. There is atelectasis at both lung bases. Liver parenchyma is unremarkable. There are dilated intra and extra hepatic bile ducts. The gallbladder surgically absent. There are calcifications in the pancreas consistent with chronic pancreatitis. There is no evidence for acute pancreatitis. Spleen appears be surgically absent. Adrenals are normal. There is no hydronephrosis in either kidney. There is aortic atherosclerosis. Small bowel is not dilated. Patient's had prior bowel resection. There is large amount stool in the colon. There is an ileostomy left lower quadrant. Urinary bladder is normal. Uterus is surgically absent. IMPRESSION: Moderate to severe fecal stasis. Chronic pancreatitis. Dilated biliary system appears similar to prior exam dated 10/07/2021. There is no ascites. 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 I did not see any signs of infection around the tube site or skin. I am not sure why she has elevated WBC, but doubt it is from the tube. Pt and nurse had actually saved tube and it looked like the balloon meant to hold it in place had shredded and moved from the bottom where it normally sits. I have never seen it look like that. Pt was in her bed and I had brought up an 18Fr G-tube, placed some lube on the end of the tube and then inserted into the opening on the abdominal wall. It went in easily with some moderate to severe pain felt by pt; which immediately started improving. Inflated the balloon and flushed with some saline that went down easily; did not come back up tube or come around and onto skin. GISELLA SHARMA DO Jan 17, 2022 20:54
[2022-01-18] MEDS: PIPERACILLIN SODIUM/TAZOBACTAM 4.5 GM in NS (IVPB) 100 ML IV SCH ×3 (03:04→18:04)
[2022-01-18] MEDS: VANCOMYCIN 500 MG/NS 100 ML IVPB IV SCH ×6 (03:04→17:53)
[2022-01-18 05:21] LABS: BASOPHILS # (AUTO) 0.1 10^3/uL (0.0-0.1); BASOPHILS % (AUTO) 1 % (0-10); EOSINOPHILS # (AUTO) 0.4 10^3/uL (0.0-0.3); EOSINOPHILS % (AUTO) 3 % (0-10); HEMATOCRIT 38 % (35-52); HEMOGLOBIN 12.1 g/dL (11.5-16.0); LYMPHOCYTES # (AUTO) 3.1 10^3/uL (1.0-4.0); LYMPHOCYTES % (AUTO) 23 % (12-44); MEAN CORPUSCULAR HEMOGLOBIN 31 pg (25-34); MEAN CORPUSCULAR HGB CONC 32 g/dL (32-36); MEAN CORPUSCULAR VOLUME 96 fL (80-99); MEAN PLATELET VOLUME 9.8 fL (9.0-12.2); MONOCYTES # (AUTO) 2.1 10^3/uL (0.0-1.0); MONOCYTES % (AUTO) 15 % (0-12); NEUTROPHILS # (AUTO) 8.1 10^3/uL (1.8-7.8); NEUTROPHILS % (AUTO) 58 % (42-75); PLATELET COUNT 431 10^3/uL (130-400); WHITE BLOOD COUNT 13.9 10^3/uL (4.3-11.0)
[2022-01-18] MEDS: HYDROmorphone 2 MG/ML VIAL (DILAUDID) IVP PRN (05:26)
[2022-01-18 05:28] LABS: ALBUMIN 2.4 GM/DL (3.2-4.5); POTASSIUM 4.1 MMOL/L (3.6-5.0)
[2022-01-18 05:30] LABS: CALCIUM 8.3 MG/DL (8.5-10.1)
[2022-01-18 05:31] LABS: TOTAL PROTEIN 5.1 GM/DL (6.4-8.2)
[2022-01-18 05:32] LABS: BILIRUBIN,TOTAL 0.5 MG/DL (0.1-1.0)
[2022-01-18 05:34] LABS: PHOSPHORUS 3.5 MG/DL (2.3-4.7)
[2022-01-18 05:35] LABS: CREATININE SERUM 0.85 MG/DL (0.60-1.30)
[2022-01-18 05:37] LABS: MAGNESIUM 2.2 MG/DL (1.6-2.4)
[2022-01-18] MEDS: D5 1/2 NS W/KCL 20 MEQ/L 1,000 ML IV SCH (05:55)
--- NOTE | 2022-01-18 06:14 | Progress Note - Hospitalist ---
Subjective HPI/CC On Admission Date Seen by Provider: Jan 18, 2022 Time Seen by Provider: 11:00 CC: Sepsis from J tube infection HPI: This is a 71 yr old female clinic pt of [facility]. She has a past medical history of myasthenia gravis. She receives supplement feedings through a J tube. She was found to have an infection in the J tube. Ultimately fell out this morning. She was placed on broad spectrum antibiotics. Will have Dr. Serrano replace the J tube, and will monitor pt closely. Continue IV fluids. Subjective/Events-last exam Pt is doing a lot better Transferring to 4th floor J tube fell out again it was replaced Nystatin cream and powder will be initiated Miralax will be given through the J tube so bowels will move Review of Systems Gastrointestinal: Abdominal Pain Focused Exam Lactate Level 01/17/22 01:04: Lactic Acid Level 2.93*H 01/17/22 03:25: Lactic Acid Level 2.21*H 01/17/22 06:25: Lactic Acid Level 1.89 Time of Focused Exam: 18:20 Objective Exam Vital Signs Vital Signs Date Time Temp Pulse Resp B/P (MAP) Pulse Ox O2 Delivery O2 Flow Rate FiO2 01/18/22 15:32 36.2 91 18 106/65 97 Room Air Capillary Refill : Less Than 3 Seconds General Appearance: No Apparent Distress, WD/WN, Chronically ill Respiratory: Lungs Clear, Normal Breath Sounds Cardiovascular: Regular Rate, Rhythm Neurologic/Psychiatric: Alert, Oriented x3 Results/Procedures Lab Laboratory Tests 01/18/22 04:29 Patient resulted labs reviewed. Assessment/Plan Assessment and Plan Assess & Plan/Chief Complaint Assessment: Sepsis Feeding tube infection Myasthenia gravis History pneumonia Leukocytosis Chronic pancreatitis Chronic diarrhea Plan: ICU IV fluid Restart home meds Consult Dr. Serrano 01/18/22: Move to 4th IV abx Monitor closely Diagnosis/Problems Diagnosis/Problems (1) G-tube site cellulitis Status: Acute (2) Pancreatitis, chronic Status: Acute (3) Sepsis Status: Acute (4) Myasthenia gravis Status: Acute JESSE PHILLIPS DO Jan 18, 2022 06:14
[2022-01-18] MEDS ORDERED: DIATRIZOATE MEGLUM/SODIUM 37% 120 ML (GASTROGRAFIN) NG ONE (06:15)
[2022-01-18] MEDS: POTASSIUM CL 10MEQ/50ML IVPB 50 ML IV SCH (06:31)
[2022-01-18] MEDS: KCL 20 MEQ TAB (K-DUR) PO SCH (06:32)
[2022-01-18] MEDS: MAGNESIUM 1 GM/100 ML IVPB 100 ML IV SCH (06:33)
--- NOTE | 2022-01-18 06:44 | Cardiology Progress Note ---
Subjective Date Seen by Provider: Jan 18, 2022 Time Seen by Provider: 06:42 Subjective/Events-last exam Patient was seen at bedside, laying down comfortably Reporting recurrent episodes of chest pain dull in nature on the upper side of her chest radiating to the neck Review of Systems General: No Chills, No Night Sweats, No Fatigue, No Malaise, No Appetite, No Other HEENT: No Head Aches, No Visual Changes, No Eye Pain, No Ear Pain, No Dysphasia, No Sinus Congestion, No Post Nasal Drip, No Sore Throat, No Other Pulmonary: No Dyspnea, No Cough, No Pleuritic Chest Pain, No Other Cardiovascular: No: Chest Pain, Palpitations, Orthopnea, Paroxysmal Noc. Dyspnea, Edema, Lt Headedness, Other Focused Exam Lactate Level 01/17/22 01:04: Lactic Acid Level 2.93*H 01/17/22 03:25: Lactic Acid Level 2.21*H 01/17/22 06:25: Lactic Acid Level 1.89 Time of Focused Exam: 18:20 Objective-Cardiology Exam Last Set of Vital Signs Vital Signs 01/18/22 01/18/22 04:00 05:00 Temp 36.5 Pulse 102 Resp 15 B/P (MAP) 108/57 Pulse Ox 96 O2 Delivery Room Air I&O Intake and Output 01/18/22 00:00 Intake Total 150 ml Output Total 1130 ml Balance -980 ml Intake Oral 150 ml Output Urine Total 1130 ml # Voids 10 General: Alert, Oriented X3, Cooperative HEENT: Atraumatic, PERRLA Neck: Supple, No JVD, No Thyromegaly Lungs: Clear to Auscultation, Normal Air Movement Heart: Regular Rate, Normal S1, Normal S2, No Murmurs Abdomen: Normal Bowel Sounds, Soft, No Tenderness, No Hepatosplenomegaly, No Masses Extremities: No Clubbing, No Cyanosis, No Edema, Normal Pulses, No Tenderness/S welling Skin: No Rashes, No Breakdown, No Significant Lesion Neuro: Normal Gait, Normal Speech, Strength at 5/5 X4 Ext, Normal Tone, Sensation Intact Psych/Mental Status: Mental Status NL, Mood NL Results Lab Laboratory Tests 01/18/22 04:29 A/P-Cardiology Admission Diagnosis Sepsis Feeding tube infection Congestive heart failure, chronic compensated left ventricular systolic dysfunction, nonischemic cardiomyopathy Sinus tachycardia Assessment/Plan Sepsis, elevated lactic acid, leukocytosis Started on antibiotics and reported improvement Status post feeding tube dislodgment. Seen and evaluated with Dr. Serrano and it was reinserted and patient is feeling better. Chest pain, patient is having recurrent episodes of chest pain. No acute EKG changes. Cardiac enzymes were negative. Still having persistent recurrent chest pain, I will proceed with cardiac catheterization. Sinus tachycardia, probably secondary to sepsis. Continue with IV fluid and monitor. Congestive heart failure, chronic compensated left ventricular systolic dy sfunction, reporting that her last ejection fraction was 50% per echo done at . Nonischemic cardiomyopathy. Coronary artery disease, reporting having cardiac catheterization done 2 to 3 years ago, normal coronaries. Planning to repeat cardiac catheterization due to her persistent chest pain Hypothyroidism, followed and managed by primary care physician Arthritis. Chronic prednisone use, probably will require stress dose of steroids. History of myasthenia gravis. Managed by primary care physician SINCERE DASH MD Jan 18, 2022 06:44
[2022-01-18] MEDS ORDERED: LIDOCAINE 1% INJ 20 ML VIAL ONE (07:21)
[2022-01-18] MEDS ORDERED: HEParin (CATH LAB) 2,000 ML IV ONE (07:21)
[2022-01-18] MEDS ORDERED: NS IV 1000 ML 1,000 ML ONE ×2 (07:21→07:49)
[2022-01-18] MEDS ORDERED: fentaNYL INJ 100 MCG/2 ML AMP ONE (07:47)
[2022-01-18] MEDS ORDERED: MIDAZOLAM 5 MG/5 ML (VERSED) VIAL ONE (07:47)
--- NOTE | 2022-01-18 08:18 | Diagnostic Imaging Report ---
INDICATION: PEG tube check COMPARISON: CT dated 01/17/2022 TECHNIQUE: 2 radiographs of abdomen are obtained before and after 40 mL of Gastrografin mixed with water was instilled through the percutaneous enteric catheter. FINDINGS: [employer] imaging demonstrates surgical clips overlying the left and right upper abdomen. Vertebroplasty changes within the thoracolumbar spine with additional postsurgical changes within the lumbosacral spine. Gamma nail is partially visualized within the left femur. Additional catheter is identified extending overlying the left abdomen. Nonobstructive bowel gas pattern. Contrast was instilled through the catheter overlying the left abdomen. Contrast appears to extend into loops of small bowel. No free contrast identified within the lower pelvis. IMPRESSION: Enteric catheter is present with the distal tip appearing to extend into loops of small bowel within the mid abdomen. Therefore, this may relate to an underlying jejunostomy catheter. Recommend clinical correlation. Dictated by: Dictated on workstation # [id number]
[2022-01-18] MEDS ORDERED: PATIENT MAY USE OWN MEDS, ALL PO SCH (08:30)
--- NOTE | 2022-01-18 08:35 | Cardiac Cath Report ---
Cardiac Cath Report Physician (s)/Manager [employer] (s) Physician SINCERE DASH MD Pre-Procedure Diagnosis Pre-Procedure Diagnosis: Chest pain Post-Procedure Note Procedure Start Date: Jan 18, 2022 Name of Procedure: Left heart catheterization Findings/Procedure Note PROCEDURE NOTE: 71-year-old lady admitted with acute chest pain. Has a history of cardiomyopathy. Continue to have recurrent episodes of chest pain. I decided to proceed with cardiac catheterization possible PTCA. After explaining the procedure to the patient, all pros and cons were explained, all questions were answered. The patient signed the consent and then she was placed on the cardiac catheterization laboratory. Groin was prepped SL fashion local anesthesia was used. Sheath placed in the right femoral artery. Giovanny right and left catheter were used to access the coronary system. Giovanny right was prolapsed to the left ventricular cavity, pressure was measured. Pullback LV to aorta was done At the end of the procedure the sheath was removed. Closure device was deployed FINDINGS: Hemodynamics LV 95/10, end-diastolic pressure of 10 Aorta 102/54 mean of 73 ANATOMY: Left Main is free of obstructive disease Left Anterior Descending is small with mild disease nonobstructive disease Left Circumflex has no significant obstructive disease Right Coronary Artery has no significant obstructive disease LV Gram was not done, pressure was measured CONCLUSION: 1. Mild coronary artery disease nonobstructive disease 2. Normal left ventricular end-diastolic pressure DISCUSSION AND RECOMMENDATION: Chest pain is probably not cardiac in nature Anesthesia Type: Conscious Sedation Estimated blood loss (mL): 10 ml Contrast Amount: 22 ml Total Radiation Dose: 148 mGy Post-Procedure Diagnosis Post-operative diagnosis: Chest pain Leukocytosis Sinus tachycardia Sepsis SINCERE DASH MD Jan 18, 2022 08:35
--- NOTE | 2022-01-18 08:36 | Conscious Sedation/ASA ---
Conscious Sedation Pre-Proced Time 07:00 ASA Score 3 For ASA 3 and 4: Consider anesthesia and medical clearance. Also, for patients with a history of failed moderate sedation consider anesthesia. Airway Lungs Heart ASA score ASA 1: a normal healthy patient ASA 2: a patient with a mild systemic disease (mid diabetes, controlled hypertension, obesity x ASA 3: a patient with a severe systemic disease that limits activity (angina, COPD, prior Myocardial infarction) ASA 4: a patient with an incapacitating disease that is a constant threat to life (CHF, renal failure) ASA 5: a moribund patient not expected to survive 24 hrs. (ruptured aneurysm) ASA 6: a declared brain- patient whose organs are being harvested. For emergent operations, add the letter E after the classification Mallampati Classification Grade 3 Sedation Plan Analgesia, Amnesia, Plan communicated to team members, Discussed options with patient/fam, Discussed risks with patient/fam The patient is an appropriate candidate to undergo the planned procedure, sedation, and anesthesia. The patient immediately re-assessed prior to indication. SINCERE DASH MD Jan 18, 2022 08:36
--- NOTE | 2022-01-18 09:24 | Tele-ICU Progress Note ---
Subjective Date Seen by a Provider: Jan 18, 2022 Time Seen by a Provider: 09:24 Subjective/Events-last exam (Tele-ICU Physician , Progress Note ) Available chart/ vitals / labs / Images reviewed Video assessment done using teleICU camera, rest of exam as per RN Discussed with RN , EXAM PER RN Events overnight : Afebrile FiO2 - I/O = Drips: Pressors: , hemodynamically stable Consultants: Hospital course: A/P Jejunostomy tube complications - replaced by Sx at bedsite 01/17 - 18Fr G-tube - AND AGAIN on 01/18 Abd pain - due to above - CT 01/17 - constipation - Chronicpancreatitis. chronic Dilated biliary system- on CT Congestive heart failure -chronic compensated left ventricular systolic dysfunction, nonischemic cardiomyopathy - s/p cath 01/18 -Mild coronary artery disease nonobstructive disease - as per cards Dyspnea - RESOLVED , on RA - CTA 01/17 - no PE , nop infiltrates Leukocytosi -n vanc o and zosyn empirically Myasthenia gravis Lines : (Central Line Necessity Reviewed) Villanueva: OG: Nutrition: on hold Analgesia: Anxiety/ delirium VTE Prophylaxis: sahil 30 Stress Ulcer Prophylaxis: Plans in collaboration with bedside consultants and IM MDs. Discussed with RN to reach out if any questions or concerns A total of 32 minutes of critical care time was devoted to this patient today, required to treat and/or prevent further deterioration of critical care condition ( as above) Sepsis Event Evaluation Height, Weight, BMI Height: 5'5.00" Weight: 113lbs. 0oz. [id number]; 21.55 BMI Method:Stated Focused Exam Lactate Level 01/17/22 01:04: Lactic Acid Level 2.93*H 01/17/22 03:25: Lactic Acid Level 2.21*H 01/17/22 06:25: Lactic Acid Level 1.89 Time of Focused Exam: 18:20 Exam Exam Patient acknowledged, consented, and participated in this virtual visit which was conducted using real time audio/video Vital Signs Date Time Temp Pulse Resp B/P (MAP) Pulse Ox O2 Delivery O2 Flow Rate FiO2 01/18/22 09:00 97 8 102/64 95 Room Air 01/18/22 07:00 97 01/18/22 07:00 94 17 103/62 92 Room Air 01/18/22 06:00 106 14 108/71 95 Room Air 01/18/22 05:00 102 108/57 96 Room Air 01/18/22 04:00 94 Room Air 01/18/22 04:00 102 15 109/68 95 Room Air 01/18/22 04:00 36.5 01/18/22 03:00 87 9 103/59 93 Room Air 01/18/22 02:00 87 10 102/60 95 Room Air 01/18/22 01:00 86 01/18/22 01:00 86 12 98/62 96 Room Air 01/18/22 00:14 36.5 01/18/22 00:00 96 Room Air 01/18/22 00:00 101 10 98/52 95 Room Air 01/17/22 23:00 102 92/55 91 Room Air 01/17/22 22:00 98 17 105/58 97 Room Air 01/17/22 21:00 97 19 103/74 96 Room Air 01/17/22 20:00 94 Room Air 01/17/22 20:00 36.4 01/17/22 20:00 93 17 93/56 97 Room Air 01/17/22 19:00 100 01/17/22 19:00 100 19 97/63 98 Room Air 01/17/22 18:00 98 19 91/58 97 Room Air 01/17/22 17:00 105 11 87/72 91 Room Air 01/17/22 16:00 96 10 95/60 93 Room Air 01/17/22 16:00 93 Room Air 01/17/22 15:20 36.5 01/17/22 15:00 98 15 96/56 98 Room Air 01/17/22 14:00 98 9 96/58 96 Room Air 01/17/22 13:00 95 9 97/63 94 Room Air 01/17/22 13:00 96 01/17/22 12:00 94 Room Air 01/17/22 12:00 98 11 106/75 94 Room Air 01/17/22 12:00 36.7 01/17/22 11:00 95 17 95/60 95 Room Air 01/17/22 10:00 99 8 95/54 95 Room Air I & O 01/18/22 07:00 Intake Total 250 ml Output Total 1380 ml Balance -1130 ml Height & Weight Height: 5'5.00" Weight: 113lbs. 0oz. [id number]; 21.55 BMI Method:Stated General Appearance: No Apparent Distress, Chronically ill HEENT: PERRL/EOMI, Normal ENT Inspection, Pharynx Normal, Moist Mucous Membranes Neck: Full Range of Motion, Normal Inspection, Non Tender Respiratory: Chest Non Tender, Lungs Clear, Normal Breath Sounds, No Accessory Muscle Use, No Respiratory Distress Cardiovascular: Regular Rate, Rhythm, No Edema, No Gallop, No JVD, No Murmur, Normal Peripheral Pulses Capillary Refill: Less Than 3 Seconds Gastrointestinal: soft, no organomegaly, other (Jejunstomy tube site no purulent drainage, minimal erythema) Extremity: Normal Capillary Refill, Normal Inspection, Normal Range of Motion, Non Tender, No Calf Tenderness, No Pedal Edema Neurologic/Psychiatric: Alert, Oriented x3, No Motor/Sensory Deficits, Normal Mood/Affect Skin: Normal Color, Warm/Dry Lymphatic: No Adenopathy Results Lab Laboratory Tests 01/16/22 18:23 01/17/22 04:01 01/18/22 04:29 Assessment/Plan Assessment/Plan ` ANNA PEOPLES MD Jan 18, 2022 09:24
[2022-01-18] MEDS: polyethylene glycoL POWDER 17 GM (MIRALAX) PACK GT SCH ×3 (10:30→20:02)
[2022-01-18] MEDS: ENOXAPARIN INJECTION 30 MG/0.3 ML SYR SC SCH (12:06)
[2022-01-18] MEDS: SENNA W/DOCUSATE (SENOKOT S) TABLET PO SCH ×2 (12:06→20:03)
[2022-01-18] MEDS: DOCUSATE SODIUM 100 MG (COLACE) CAP PO SCH ×2 (12:06→20:03)
[2022-01-18] MEDS: PANTOPRAZOLE 40 MG (PROTONIX) VIAL IV SCH (12:06)
[2022-01-18] MEDS: MICONAZOLE 2% POWDER (DESENEX AF) 90 GM TOP SCH ×2 (12:09→20:02)
[2022-01-18] MEDS: NS IV 1000 ML 1,000 ML IV SCH ×2 (12:09→18:03)
[2022-01-18] MEDS: NYSTATIN CREAM (MYCOSTATIN) 30 GM TUBE TP SCH ×2 (12:09→20:02)
[2022-01-18] MEDS ORDERED: SULF-221 PO (14:22)
[2022-01-18] MEDS ORDERED: GABA-486 PO (14:26)
[2022-01-18] MEDS ORDERED: TRZ50T PO (14:26)
[2022-01-18] MEDS ORDERED: ACET-2267 PO (14:35)
[2022-01-18] MEDS ORDERED: LEVO100T7 PO (14:36)
[2022-01-18] MEDS ORDERED: TROUGH ORDER-PHARMACY XX ONE (15:00)
[2022-01-18 19:57] VITALS: BP 124/72
[2022-01-18 23:12] VITALS: BP 111/74
[2022-01-19] MEDS: PIPERACILLIN SODIUM/TAZOBACTAM 4.5 GM in NS (IVPB) 100 ML IV SCH ×3 (02:36→18:51)
[2022-01-19 04:35] VITALS: BP 96/63
[2022-01-19] MEDS: NS IV 1000 ML 1,000 ML IV SCH ×3 (04:51→23:34)
[2022-01-19 05:45] LABS: BASOPHILS # (AUTO) 0.1 10^3/uL (0.0-0.1); BASOPHILS % (AUTO) 1 % (0-10); EOSINOPHILS # (AUTO) 0.3 10^3/uL (0.0-0.3); EOSINOPHILS % (AUTO) 4 % (0-10); HEMATOCRIT 36 % (35-52); HEMOGLOBIN 11.5 g/dL (11.5-16.0); LYMPHOCYTES # (AUTO) 1.9 10^3/uL (1.0-4.0); LYMPHOCYTES % (AUTO) 23 % (12-44); MEAN CORPUSCULAR HEMOGLOBIN 31 pg (25-34); MEAN CORPUSCULAR HGB CONC 32 g/dL (32-36); MEAN CORPUSCULAR VOLUME 95 fL (80-99); MEAN PLATELET VOLUME 9.7 fL (9.0-12.2); MONOCYTES # (AUTO) 1.1 10^3/uL (0.0-1.0); MONOCYTES % (AUTO) 13 % (0-12); NEUTROPHILS # (AUTO) 4.9 10^3/uL (1.8-7.8); NEUTROPHILS % (AUTO) 59 % (42-75); PLATELET COUNT 447 10^3/uL (130-400); WHITE BLOOD COUNT 8.4 10^3/uL (4.3-11.0)
[2022-01-19 05:55] LABS: ALBUMIN 2.2 GM/DL (3.2-4.5); POTASSIUM 3.8 MMOL/L (3.6-5.0)
[2022-01-19 05:58] LABS: TOTAL PROTEIN 4.8 GM/DL (6.4-8.2)
[2022-01-19 06:00] LABS: BILIRUBIN,TOTAL 0.4 MG/DL (0.1-1.0)
[2022-01-19 06:01] LABS: CREATININE SERUM 0.78 MG/DL (0.60-1.30)
[2022-01-19 06:04] LABS: MAGNESIUM 1.9 MG/DL (1.6-2.4)
[2022-01-19] MEDS: VANCOMYCIN 500 MG/NS 100 ML IVPB IV SCH ×4 (06:46→17:37)
[2022-01-19 07:28] VITALS: BP 91/53
[2022-01-19] MEDS: PANTOPRAZOLE 40 MG (PROTONIX) VIAL IV SCH (08:57)
[2022-01-19] MEDS: polyethylene glycoL POWDER 17 GM (MIRALAX) PACK GT SCH ×2 (08:57→20:49)
[2022-01-19] MEDS: DOCUSATE SODIUM 100 MG (COLACE) CAP PO SCH ×2 (08:57→20:49)
[2022-01-19] MEDS: NYSTATIN CREAM (MYCOSTATIN) 30 GM TUBE TP SCH ×3 (08:58→20:53)
[2022-01-19] MEDS: SENNA W/DOCUSATE (SENOKOT S) TABLET PO SCH ×2 (08:58→20:49)
[2022-01-19] MEDS: MICONAZOLE 2% POWDER (DESENEX AF) 90 GM TOP SCH ×2 (08:58→20:53)
[2022-01-19] MEDS: ENOXAPARIN 40 MG/0.4 ML (LOVENOX) SYR SC SCH (09:05)
[2022-01-19 11:26] VITALS: BP 107/66
--- NOTE | 2022-01-19 11:34 | Progress Note - Hospitalist ---
Subjective HPI/CC On Admission Date Seen by Provider: Jan 19, 2022 Time Seen by Provider: 11:10 CC: Sepsis from J tube infection HPI: This is a 71 yr old female clinic pt of [facility]. She has a past medical history of myasthenia gravis. She receives supplement feedings through a J tube. She was found to have an infection in the J tube. Ultimately fell out this morning. She was placed on broad spectrum antibiotics. Will have Dr. Serrano replace the J tube, and will monitor pt closely. Continue IV fluids. Subjective/Events-last exam Patient reports decreased abdominal pain around PEG tube site. She has been tolerating solid foods and very small volume due to previous gastric bypass with revised to Fidelia-en-Y a number of years ago. She denies chills or fever. Focused Exam Lactate Level 01/17/22 01:04: Lactic Acid Level 2.93*H 01/17/22 03:25: Lactic Acid Level 2.21*H 01/17/22 06:25: Lactic Acid Level 1.89 Time of Focused Exam: 18:20 Objective Exam Vital Signs Vital Signs Date Time Temp Pulse Resp B/P (MAP) Pulse Ox O2 Delivery O2 Flow Rate FiO2 01/19/22 08:49 96 Room Air 01/19/22 07:28 36.4 70 20 91/53 (66) Capillary Refill : Less Than 3 Seconds General Appearance: No Apparent Distress, Chronically ill Respiratory: Chest Non Tender, Lungs Clear, Normal Breath Sounds, No Accessory Muscle Use, No Respiratory Distress Cardiovascular: Regular Rate, Rhythm, No Edema, No Gallop Gastrointestinal: Normal Bowel Sounds, Other (Some erythema around the G-tube site no induration which appears to be significant improvement from previous reported examination. Bowel sounds positive no distention noted.) Results/Procedures Lab Laboratory Tests 01/19/22 04:54 Patient resulted labs reviewed. Assessment/Plan Assessment and Plan Assess & Plan/Chief Complaint 1. Sepsis severe resolved secondary to PEG tube site infection from previously old failed PEG tube. The new PEG tube has not been utilized yet. She does require special feedings otherwise she reports diarrhea her will bring them in we will give her half her usual feeding to gravity tonight continue IV antibiotics today likely switch to oral therapy and consider discharge in the morning. BRADEN HOUGH MD Jan 19, 2022 11:34
--- NOTE | 2022-01-19 13:07 | Cardiology Progress Note ---
Subjective Date Seen by Provider: Jan 19, 2022 Time Seen by Provider: 13:05 Subjective/Events-last exam Patient was seen at bedside, laying down comfortably Denied any chest pain. Feeling better. Review of Systems General: No Chills, No Night Sweats, No Fatigue, No Malaise, No Appetite, No Other HEENT: No Head Aches, No Visual Changes, No Eye Pain, No Ear Pain, No D ysphasia, No Sinus Congestion, No Post Nasal Drip, No Sore Throat, No Other Pulmonary: No Dyspnea, No Cough, No Pleuritic Chest Pain, No Other Cardiovascular: No: Chest Pain, Palpitations, Orthopnea, Paroxysmal Noc. Dyspnea, Edema, Lt Headedness, Other Focused Exam Lactate Level 01/17/22 01:04: Lactic Acid Level 2.93*H 01/17/22 03:25: Lactic Acid Level 2.21*H 01/17/22 06:25: Lactic Acid Level 1.89 Time of Focused Exam: 18:20 Objective-Cardiology Exam Last Set of Vital Signs Vital Signs 01/19/22 11:26 Temp 36.3 Pulse 87 Resp 18 B/P (MAP) 107/66 (80) Pulse Ox 96 O2 Delivery Room Air I&O Intake and Output 01/19/22 00:00 Intake Total 370 ml Output Total 650 ml Balance -280 ml Intake Oral 370 ml Output Urine Total 650 ml # Voids 5 # Bowel Movements 3 General: Alert, Oriented X3, Cooperative HEENT: Atraumatic, PERRLA Neck: Supple, No JVD, No Thyromegaly Lungs: Clear to Auscultation, Normal Air Movement Heart: Regular Rate, Normal S1, Normal S2, No Murmurs Abdomen: Normal Bowel Sounds, Soft, No Tenderness, No Hepatosplenomegaly, No Masses Extremities: No Clubbing, No Cyanosis, No Edema, Normal Pulses, No Tenderness/Swelling Skin: No Rashes, No Breakdown, No Significant Lesion Neuro: Normal Gait, Normal Speech, Strength at 5/5 X4 Ext, Normal Tone, Sensation Intact Psych/Mental Status: Mental Status NL, Mood NL Results Lab Laboratory Tests 01/19/22 04:54 A/P-Cardiology Admission Diagnosis Sepsis Feeding tube infection Congestive heart failure, chronic compensated left ventricular systolic dysfunction, nonischemic cardiomyopathy Sinus tachycardia Assessment/Plan Sepsis, elevated lactic acid, leukocytosis Started on antibiotics and reported improvement Status post feeding tube dislodgment. Seen and evaluated with Dr. Serrano and it was reinserted and patient is feeling better. Chest pain, reporting improvement. Continue to monitor Coronary artery disease, was having active recurrent chest pain, currently better Cardiac catheterization was done on January 18, 2022 showing mild disease nonobstructive disease. Sinus tachycardia, better at this time. Continue to monitor Congestive heart failure, chronic compensated left ventricular systolic dysfunction, reporting that her last ejection fraction was 50% per echo done at . Nonischemic cardiomyopathy. Hypothyroidism, followed and managed by primary care physician Arthritis. Chronic prednisone use, probably will require stress dose of steroids. History of myasthenia gravis. Managed by primary care physician SINCERE DASH MD Jan 19, 2022 13:07
[2022-01-19] MEDS: HYDROmorphone 2 MG/ML VIAL (DILAUDID) IVP PRN (13:08)
[2022-01-19] MEDS: CATHETER FLUSH 10 ML SYR IV PRN (13:08)
[2022-01-19 16:03] VITALS: BP 111/71
[2022-01-19 20:19] VITALS: BP 127/81
[2022-01-19 23:35] VITALS: BP 127/78
[2022-01-20] MEDS: PIPERACILLIN SODIUM/TAZOBACTAM 4.5 GM in NS (IVPB) 100 ML IV SCH ×2 (04:05→11:06)
[2022-01-20 04:10] VITALS: BP 133/81
[2022-01-20 06:03] LABS: BASOPHILS # (AUTO) 0.1 10^3/uL (0.0-0.1); BASOPHILS % (AUTO) 1 % (0-10); EOSINOPHILS # (AUTO) 0.3 10^3/uL (0.0-0.3); EOSINOPHILS % (AUTO) 5 % (0-10); HEMATOCRIT 33 % (35-52); HEMOGLOBIN 10.8 g/dL (11.5-16.0); LYMPHOCYTES # (AUTO) 2.2 10^3/uL (1.0-4.0); LYMPHOCYTES % (AUTO) 32 % (12-44); MEAN CORPUSCULAR HEMOGLOBIN 31 pg (25-34); MEAN CORPUSCULAR HGB CONC 32 g/dL (32-36); MEAN CORPUSCULAR VOLUME 95 fL (80-99); MEAN PLATELET VOLUME 9.5 fL (9.0-12.2); MONOCYTES # (AUTO) 0.8 10^3/uL (0.0-1.0); MONOCYTES % (AUTO) 11 % (0-12); NEUTROPHILS # (AUTO) 3.4 10^3/uL (1.8-7.8); NEUTROPHILS % (AUTO) 51 % (42-75); PLATELET COUNT 446 10^3/uL (130-400); WHITE BLOOD COUNT 6.8 10^3/uL (4.3-11.0)
[2022-01-20 06:08] LABS: ALBUMIN 2.2 GM/DL (3.2-4.5)
[2022-01-20 06:09] LABS: POTASSIUM 3.7 MMOL/L (3.6-5.0)
[2022-01-20 06:10] LABS: CALCIUM 7.9 MG/DL (8.5-10.1)
[2022-01-20 06:11] LABS: TOTAL PROTEIN 4.7 GM/DL (6.4-8.2)
[2022-01-20 06:13] LABS: BILIRUBIN,TOTAL 0.3 MG/DL (0.1-1.0)
[2022-01-20 06:15] LABS: CREATININE SERUM 0.79 MG/DL (0.60-1.30)
[2022-01-20 06:17] LABS: MAGNESIUM 1.8 MG/DL (1.6-2.4)
[2022-01-20] MEDS: VANCOMYCIN 500 MG/NS 100 ML IVPB IV SCH ×2 (06:24)
[2022-01-20 07:21] VITALS: BP 129/75
[2022-01-20] MEDS: PANTOPRAZOLE 40 MG (PROTONIX) VIAL IV SCH (09:59)
[2022-01-20] MEDS: polyethylene glycoL POWDER 17 GM (MIRALAX) PACK GT SCH (09:59)
[2022-01-20] MEDS: SENNA W/DOCUSATE (SENOKOT S) TABLET PO SCH (09:59)
[2022-01-20] MEDS: ENOXAPARIN 40 MG/0.4 ML (LOVENOX) SYR SC SCH (09:59)
[2022-01-20] MEDS: DOCUSATE SODIUM 100 MG (COLACE) CAP PO SCH (09:59)
[2022-01-20] MEDS: MICONAZOLE 2% POWDER (DESENEX AF) 90 GM TOP SCH (10:00)
[2022-01-20] MEDS: NYSTATIN CREAM (MYCOSTATIN) 30 GM TUBE TP SCH (10:00)
[2022-01-20] MEDS: NS IV 1000 ML 1,000 ML IV SCH (11:06)
[2022-01-20 11:19] VITALS: BP 120/72
--- NOTE | 2022-01-20 11:47 | Cardiology Progress Note ---
Subjective Date Seen by Provider: Jan 20, 2022 Time Seen by Provider: 11:46 Subjective/Events-last exam Patient was seen at bedside, laying down comfortably, feeling better Asking about going home. Review of Systems General: No Chills, No Night Sweats, No Fatigue, No Malaise, No Appetite, No Other HEENT: No Head Aches, No Visual Changes, No Eye Pain, No Ear Pain, No Dysphasia, No Sinus Congestion, No Post Nasal Drip, No Sore Throat, No Other Pulmonary: No Dyspnea, No Cough, No Pleuritic Chest Pain, No Other Cardiovascular: No: Chest Pain, Palpitations, Orthopnea, Paroxysmal Noc. Dyspnea, Edema, Lt Headedness, Other Focused Exam Time of Focused Exam: 18:20 Objective-Cardiology Exam Last Set of Vital Signs Vital Signs 01/20/22 11:19 Temp 36.1 Pulse 58 Resp 20 B/P (MAP) 120/72 (88) Pulse Ox 94 O2 Delivery Room Air I&O Intake and Output 01/19/22 23:59 Intake Total 950 ml Output Total 400 ml Balance 550 ml Intake Oral 550 ml IV Total 400 ml Output Urine Total 400 ml # Voids 1 # Urine Diapers 2 # Bowel Movements 1 General: Alert, Oriented X3, Cooperative HEENT: Atraumatic, PERRLA Neck: Supple, No JVD, No Thyromegaly Lungs: Clear to Auscultation, Normal Air Movement Heart: Regular Rate, Normal S1, Normal S2, No Murmurs Abdomen: Normal Bowel Sounds, Soft, No Tenderness, No Hepatosplenomegaly, No Masses Extremities: No Clubbing, No Cyanosis, No Edema, Normal Pulses, No Tenderness/Swelling Skin: No Rashes, No Breakdown, No Significant Lesion Neuro: Normal Gait, Normal Speech, Strength at 5/5 X4 Ext, Normal Tone, Sen sation Intact Psych/Mental Status: Mental Status NL, Mood NL Results Lab Laboratory Tests 01/20/22 05:45 A/P-Cardiology Admission Diagnosis Sepsis Feeding tube infection Congestive heart failure, chronic compensated left ventricular systolic dysfunction, nonischemic cardiomyopathy Sinus tachycardia Assessment/Plan Status post sepsis, elevated lactic acid, leukocytosis Patient is reporting improvement, feeling better. Managed by medical team. Status post feeding tube dislodgment. Seen and evaluated with Dr. Serrano and it was reinserted and patient is feeling better. Chest pain, reporting improvement. Continue to monitor Coronary artery disease, was having active recurrent chest pain, currently better Cardiac catheterization was done on January 18, 2022 showing mild disease non obstructive disease. Sinus tachycardia, better at this time. Continue to monitor Congestive heart failure, chronic compensated left ventricular systolic dysfunction, reporting that her last ejection fraction was 50% per echo done at . Nonischemic cardiomyopathy. Hypothyroidism, followed and managed by primary care physician Arthritis. Chronic prednisone use, probably will require stress dose of steroids. History of myasthenia gravis. Managed by primary care physician SINCERE DASH MD Jan 20, 2022 11:47
--- NOTE | 2022-01-20 12:28 | Discharge Summary ---
Diagnosis/Chief Complaint Date of Admission Jan 16, 2022 at 23:52 Date of Discharge Discharge Date: Jan 20, 2022 Admission Diagnosis Assessment: Sepsis Feeding tube infection Myasthenia gravis History pneumonia Leukocytosis Chronic pancreatitis Chronic diarrhea Plan: ICU IV fluid Restart home meds Consult Dr. Serrano Primary Care Pooja Jefferson MD Discharge Diagnosis (1) G-tube site cellulitis Status: Acute (2) Pancreatitis, chronic Status: Acute (3) Sepsis Status: Acute (4) Myasthenia gravis Status: Acute Discharge Summary Discharge Physical Exam Allergies: Coded Allergies: diphenhydramine (Verified Allergy, Intermediate, MUSCLE PAIN; AGITATION, 06/09/19) promethazine (Verified Allergy, Mild, AGITATION, 06/09/19) Vitals & I&Os Vital Signs Date Time Temp Pulse Resp B/P (MAP) Pulse Ox O2 Delivery O2 Flow Rate FiO2 01/20/22 11:19 36.1 58 20 120/72 (88) 94 Room Air General Appearance: No Apparent Distress Respiratory: Chest Non Tender, Lungs Clear, Normal Breath Sounds, No Accessory Muscle Use, No Respiratory Distress Cardiovascular: Regular Rate, Rhythm, No Edema, No Gallop, No JVD, No Murmur, Normal Peripheral Pulses Gastrointestinal: Normal Bowel Sounds, No Organomegaly, No Pulsatile Mass, Non Tender, Soft, Other (Erythema resolved no purulence around the G-tube site no tenderness) Hospital Course Was the Problem List Reviewed?: Yes Patient is a 71 year old female with h/o myasthenia gravis who presents with chest pain, palpitations, and fever. Symptoms onset for the past 2 days with pain, redness, swelling and drainage around peg tube. Tube placed 1 year ago per [facility].The patient was hypotensive with a white count over 22,000 meeting criteria for severe sepsis. For this reason she was admitted to the intensive care unit for broad-spectrum antibiotics were initiated where PEG tube was replaced the patient and the nurse reported at some point there was a lot of purulent material released from the PEG tube site with significant improvement in pain. White count returned to normal with no further fever and resolution of sepsis. At the time of her discharge today she has no evidence for ongoing infection at the site reports that she feels like she is back to baseline. She tolerated tube feeding last night so will be discharged continue medications unchanged with recommendations for following up with her primary care provider within the next [address] Jefferson. No change in home medication.Cultures are negative to date. Labs (last 24 hrs) Laboratory Tests 01/20/22 05:45: White Blood Count 6.8, Red Blood Count 3.50L, Hemoglobin 10.8L, Hematocrit 33L, Mean Corpuscular Volume 95, Mean Corpuscular Hemoglobin 31, Mean Corpuscular Hemoglobin Concent 32, Red Cell Distribution Width 14.2, Platelet Count 446H, Mean Platelet Volume 9.5, Immature Granulocyte % (Auto) 0, Neutrophils (%) (Auto) 51, Lymphocytes (%) (Auto) 32, Monocytes (%) (Auto) 11, Eosinophils (%) (Auto) 5, Basophils (%) (Auto) 1, Neutrophils # (Auto) 3.4, Lymphocytes # (Auto) 2.2, Monocytes # (Auto) 0.8, Eosinophils # (Auto) 0.3, Basophils # (Auto) 0.1, Immature Granulocyte # (Auto) 0.0, Sodium Level 139, Potassium Level 3.7, Chloride Level 109H, Carbon Dioxide Level 21, Anion Gap 9, Blood Urea Nitrogen 8, Creatinine 0.79, Estimat Glomerular Filtration Rate 79, BUN/Creatinine Ratio 10, Glucose Level 106H, Calcium Level 7.9L, Corrected Calcium 9.3, Magnesium Level 1.8, Total Bilirubin 0.3, Aspartate Amino Transf (AST/SGOT) 19, Alanine Aminotransferase (ALT/SGPT) 13, Alkaline Phosphatase 81, Total Protein 4.7L, Albumin 2.2L Microbiology 01/17/22 MRSA Screen - Final, Complete MRSA not isolated 01/16/22 Blood Culture - Preliminary, Resulted No growth Patient resulted labs reviewed. Pending Labs Laboratory Tests 01/20/22 05:45: White Blood Count 6.8, Red Blood Count 3.50, Hemoglobin 10.8, Hematocrit 33, Me an Corpuscular Volume 95, Mean Corpuscular Hemoglobin 31, Mean Corpuscular Hemoglobin Concent 32, Red Cell Distribution Width 14.2, Platelet Count 446, Mean Platelet Volume 9.5, Immature Granulocyte % (Auto) 0, Neutrophils (%) (Auto) 51, Lymphocytes (%) (Auto) 32, Monocytes (%) (Auto) 11, Eosinophils (%) (Auto) 5, Basophils (%) (Auto) 1, Neutrophils # (Auto) 3.4, Lymphocytes # (Auto) 2.2, Monocytes # (Auto) 0.8, Eosinophils # (Auto) 0.3, Basophils # (Auto) 0.1, Immature Granulocyte # (Auto) 0.0, Sodium Level 139, Potassium Level 3.7, Chloride Level 109, Carbon Dioxide Level 21, Anion Gap 9, Blood Urea Nitrogen 8, Creatinine 0.79, Estimat Glomerular Filtration Rate 79, BUN/Creatinine Ratio 10, Glucose Level 106, Calcium Level 7.9, Corrected Calcium 9.3, Magnesium Level 1.8, Total Bilirubin 0.3, Aspartate Amino Transf (AST/SGOT) 19, Alanine Aminotransferase (ALT/SGPT) 13, Alkaline Phosphatase 81, Total Protein 4.7, Albumin 2.2 Discussion & Recommendations Discharge Planning: <30 minutes discharge planning Discharge Home Medications: Active Scripts Active Reported Levothyroxine Sodium 100 Mcg Tablet 100 Mcg PO HS Tylenol Extra Strength (Acetaminophen) 500 Mg Tablet 1,000 Mg PO Q8H PRN TAKES 2 (500MG) TABS Gabapentin 100 Mg Capsule 100 Mg PO QID TAKES 100MG CAPS ALONG WITH 300MG CAPS TO TOTAL 400MG Trazodone HCl 50 Mg Tablet 50 Mg PO 2000 Bactrim Ds Tablet (Sulfamethoxazole/Trimethoprim) 800 Mg-160 Mg Tablet 1 Each PO BID FILLED 01-15-2022 #14/7 DAY SUPPLY Tymlos (Abaloparatide) 1.56 Ml Pen.injctr 80 Mcg SC HS Fentanyl Patch 25 MCG (Fentanyl) 1 Each Patch.td72 25 Mcg TD Q72H Neurontin (Gabapentin) 300 Mg Capsule 400 Mg PO QID TAKES 300MG CAPS ALONG WITH 100MG CAPS TO TOTAL 400MG Temazepam 30 Mg Capsule 30 Mg PO HS PRN Pravastatin Sodium 10 Mg Tablet 10 Mg PO HS Creon Dr 24,000 Units Capsule (Lipase/Protease/Amylase) 1 Each Capsule.dr 4 Cap PO TIDWM Duloxetine HCl 60 Mg Capsule.dr 60 Mg PO BID Carvedilol 3.125 Mg Tablet 3.125 Mg PO BID HOLD FOR HR <55 BPM OR SBP<95 Ropinirole HCl 0.5 Mg Tablet 0.5 Mg PO HS Omeprazole 40 Mg Capsule. 40 Mg PO DAILY Mestinon (Pyridostigmine [place]) 60 Mg Tab 60 Mg PO TID Instructions to patient/family Please see electronic discharge instructions given to patient. Copy Copies To 1: POOJA JEFFERSON MD, MARK D MD Jan 20, 2022 12:28
== END 2022-01-20 14:41 | disposition home or self-care (01) | DRG 393 ==
LOC: EDUNIT# 18:16 → ER FS 18:17 → ICU 23:52 → 4TH 01-18 13:45
PROVIDERS: ADMIT Internal Medicine; ATTEND Internal Medicine
PROC: 0DHA7UZ Insertion of Feeding Device into Jejunum, Via Natural or Artificial Opening (ICD-10-PCS; principal; 2022-01-17)
PROC: 4A023N7 Measurement of Cardiac Sampling and Pressure, Left Heart, Percutaneous Approach (ICD-10-PCS; 2022-01-18)
PROC: B2111ZZ Fluoroscopy of Multiple Coronary Arteries using Low Osmolar Contrast (ICD-10-PCS; 2022-01-18)
DX: K94.12 Enterostomy infection (principal); A41.9 Sepsis, unspecified organism; R65.20 Severe sepsis without septic shock; L03.311 Cellulitis of abdominal wall; I50.22 Chronic systolic (congestive) heart failure; I42.9 Cardiomyopathy, unspecified; K86.1 Other chronic pancreatitis; G70.00 Myasthenia gravis without (acute) exacerbation; I25.10 Atherosclerotic heart disease of native coronary artery without angina pectoris; K52.9 Noninfective gastroenteritis and colitis, unspecified; R07.89 Other chest pain; M81.0 Age-related osteoporosis without current pathological fracture; E03.9 Hypothyroidism, unspecified; M19.91 Primary osteoarthritis, unspecified site; Z88.8 Allergy status to other drugs, medicaments and biological substances; Z79.52 Long term (current) use of systemic steroids
CPT/HCPCS: 36415; 49465; 71045; 71275; 74177; 80053; 80202; 83605; 83735; 83880; 84100; 84484; 85007; 85025; 85027; 85379; 87040; 87081; 93005; 93458; Q9967

== ENCOUNTER 2022-02-14 18:01 | Emergency (ER) | payer MEDICARE ==
[~2022-02-14] VITALS: Ht 162.7 cm; Wt 51.7 kg
[~2022-02-14 18:01] MED LIST changes: +ACET-2267 PO; +GABA-486 PO; +LEVO100T7 PO; +SULF-221 PO; +TRZ50T PO
--- NOTE | 2022-02-14 18:24 | ED General ---
General Chief Complaint: Trauma-Non Activation Stated Complaint: FALL History of Present Illness Date Seen by Provider: Feb 14, 2022 Time Seen by Provider: 18:24 Initial Comments 71-year-old female presents following a fall. Patient reports that she fell 4 days ago and presents today because she "cannot take it anymore" patient is getting a vehicle without her walker when she fell forward. Patient fell and hit her face and has multiple skin abrasions that are on her face, hit her chest wall and has pain in her left anterior chest wall sternal area and along with pain in her right knee. Patient reports that she has a "torn meniscus" in her right knee but is not a surgical candidate and sometimes goes out on her. Patient has some abrasions on her bilateral lower legs. Patient is currently on a fentanyl patch for pain medication. Allergies and Home Medications Allergies Coded Allergies: diphenhydramine (Verified Allergy, Intermediate, MUSCLE PAIN; AGITATION, 06/09/19) promethazine (Verified Allergy, Mild, AGITATION, 06/09/19) Patient Home Medication List Home Medication List Reviewed: Yes Abaloparatide (Tymlos) 1.56 Ml Pen.injctr, 80 MCG SC HS, (Reported) Entered as Reported by: MAY MASON on 04/17/20 1131 Acetaminophen (Tylenol Extra Strength) 500 Mg Tablet, 1,000 MG PO Q8H PRN for PAIN-MILD (1-4), (Reported) Entered as Reported by: DOLORES DYER on 01/18/22 1435 Carvedilol (Carvedilol) 3.125 Mg Tablet, 3.125 MG PO BID, (Reported) Entered as Reported by: ANGELO SETH on 06/09/19 1340 Duloxetine HCl (Duloxetine HCl) 60 Mg Capsule.dr, 60 MG PO BID, (Reported) Entered as Reported by: ANGELO SETH on 06/09/19 1340 Fentanyl (Fentanyl Patch 25 MCG) 1 Each Patch.td72, 25 MCG TD Q72H, (Reported) Entered as Reported by: MAY MASON on 04/17/20 1131 Gabapentin (Neurontin) 300 Mg Capsule, 400 MG PO QID, (Reported) Entered as Reported by: MAY MASON on 04/17/20 1131 Gabapentin (Gabapentin) 100 Mg Capsule, 100 MG PO QID, (Reported) Entered as Reported by: DOLORES DYER on 01/18/22 1426 Hydrocodone/Acetaminophen (Hydrocodone-Acetamin 5-325 mg) 5 Mg-325 Mg Tablet, 1 TAB PO Q8H PRN for PAIN-MODERATE (5-7) Prescribed by: HALLEY LONG on 02/14/222000 Levothyroxine Sodium (Levothyroxine Sodium) 100 Mcg Tablet, 100 MCG PO HS, (Reported) Entered as Reported by: DOLORES DYER on 01/18/22 1436 Lipase/Protease/Amylase (Creon Dr 24,000 Units Capsule) 1 Each Capsule., 4 CAP PO TIDWM, (Reported) Entered as Reported by: ANGELO SETH on 06/09/19 1340 Omeprazole (Omeprazole) 40 Mg Capsule.dr, 40 MG PO DAILY, (Reported) Entered as Reported by: RICCI BLAIR on 07/07/15 1540 Pravastatin Sodium (Pravastatin Sodium) 10 Mg Tablet, 10 MG PO HS, (Reported) Entered as Reported by: ANGELO SETH on 06/09/19 1340 Pyridostigmine [place] (Mestinon) 60 Mg Tab, 60 MG PO TID, (Reported) Entered as Reported by: RICCI BLAIR on 07/07/15 1445 Ropinirole HCl (Ropinirole HCl) 0.5 Mg Tablet, 0.5 MG PO HS, (Reported) Entered as Reported by: RICCI BLAIR on 07/07/15 1540 Sulfamethoxazole/Trimethoprim (Bactrim Ds Tablet) 800 Mg-160 Mg Tablet, 1 EACH PO BID, (Reported) Entered as Reported by: DOLORES DYER on 01/18/22 1422 Temazepam (Temazepam) 30 Mg Capsule, 30 MG PO HS PRN for SLEEP, (Reported) Entered as Reported by: ANGELO SETH on 06/09/19 1340 Trazodone HCl (Trazodone HCl) 50 Mg Tablet, 50 MG PO 2000, (Reported) Entered as Reported by: DOLORES DYER on 01/18/22 142 Review of Systems Review of Systems Constitutional: see HPI EENTM: see HPI Respiratory: No cough, No short of breath Cardiovascular: see HPI; No palpitations, No syncope Gastrointestinal: No abdominal pain, No nausea, No vomiting Musculoskeletal: see HPI Skin: see HPI Psychiatric/Neurological: No Symptoms Reported Past Jjvxheg-Nayqeb-Aniams Hx Immunizations Up To Date First/Initial COVID19 Vaccinat: 10/10/20 Second COVID19 Vaccination Miki: 11/07/20 Third COVID19 Vaccination Date: 07/30/21 Seasonal Allergies Seasonal Allergies: No Past Medical History Surgery/Hospitalization HX: hospice for mystenia gravis Surgeries: Yes (ORIF left hip, right shoulder sx, cholecystectomy, spleenectomy) Gallbladder, Orthopedic Respiratory: Yes Pneumonia Currently Using CPAP: No Currently Using BIPAP: No Cardiac: Yes Neurological: Yes (MYASTHENIA GRAVIS) Reproductive Disorders: No Female Reproductive Disorders: Denies Sexually Transmitted Disease: No HIV/AIDS: No Genitourinary: No Gastrointestinal: Yes (GASTRITIS, MALNUTRITION, GASTRIC BYPASS, STOMACH STAPLING) Pancreatitis, Chronic Diarrhea Musculoskeletal: Yes (Kyphoplasty vertebrae of compression fx) Osteoporosis, Fractures Endocrine: No HEENT: Yes Tonsilitis Loss of Vision: Denies Hearing Impairment: Denies Cancer: No Psychosocial: Yes Anxiety Integumentary: No Blood Disorders: No Adverse Reaction/Blood Tranf: No Family Medical History Diabetes mellitus 19 MOTHER FH: lung cancer 19 FATHER Cancer, Diabetes Physical Exam Vital Signs Vital Signs - First Documented 02/14/22 18:20 Temp 37.0 Pulse 116 Resp 16 B/P (MAP) 121/67 (85) Pulse Ox 99 O2 Delivery Room Air Capillary Refill : Height, Weight, BMI Height: 5'5.00" Weight: 113lbs. 0oz. 51.237727wr; 20.65 BMI Method:Stated General Appearance: No Apparent Distress, WD/WN Eyes: Bilateral Eye Normal Inspection, Bilateral Eye PERRL HEENT: Moist Mucous Membranes, Other (Small healing abrasion on her lips) Neck: Non Tender, Supple Respiratory: Lungs Clear, Normal Breath Sounds, Other (Mild tenderness to anterior chest wall along the left sternal border) Cardiovascular: Regular Rate, Rhythm, No Edema Gastrointestinal: Non Tender, Soft Extremity: Normal Capillary Refill, Normal Inspection, Swelling (Mild swelling right knee) Neurologic/Psychiatric: Alert, Oriented x3, No Motor/Sensory Deficits, Normal Mood/Affect, cycle consultant II-XII Norm as Tested Skin: Other (Multiple appropriately healing abrasion/skin tears on her face arms and bilateral knees) Progress/Results/Core Measures Suspected Sepsis SIRS Temperature: Pulse: Respiratory Rate: Blood Pressure / Mean: Results/Orders My Orders Orders - HALLEY LONG DO Ct Head/Maxillofacial Wo (02/14/22 18:29) Knee 3 View Right (02/14/22 18:29) Ribs/Bilateral With Chest (02/14/22 18:29) Hydrocodone/Apap 5/325 Tablet (Lortab 5 (02/14/22 20:00) Medications Given in ED Current Medications Medications Dose Ordered Sig/Lola Route Start Time Stop Time Status Last Admin Dose Admin Acetaminophen/ Hydrocodone Bitart 1 ea ONCE ONCE PO 02/14/22 20:00 02/14/22 20:01 DC 02/14/22 20:06 1 EA Vital Signs/I&O 02/14/22 02/14/22 18:20 20:05 Temp 37.0 Pulse 116 110 Resp 16 16 B/P (MAP) 121/67 (85) 118/61 Pulse Ox 99 97 O2 Delivery Room Air Room Air Capillary Refill : Progress Note : Progress Note Patient with no acute fractures on any of her imaging. Patient clarified that she had been on a fentanyl patch is no longer on it. I told her I would give her hydrocodone here in the ER and a couple hydrocodone's to give her time to follow-up with her primary care provider however will not provide any further pain management and that she will need to follow-up with her primary care provider for further outpatient management. Patient was stable and discharged home. Diagnostic Imaging Diagonstic Imaging: CT Plain Films/CT/US/NM/MRI: facial bones, head Comments CT HEAD/MAXILLOFACIAL WO PROCEDURE: CT head and maxillofacial without contrast. TECHNIQUE: Multiple contiguous axial images were obtained through the head and facial bones without the use of intravenous contrast. Auto Exposure Controls were utilized during the CT exam to meet ALARA standards for radiation dose reduction. INDICATION: Fall, facial bruising. Compared with head CT 05/27/2021. Head: There is no hemorrhage, hydrocephalus, edema, mass, mass effect or evidence for elevated intracerebral pressures. There has been no interval change. No abnormal extra-axial collection. Cerebral cortical volume stable. No evidence for edema. Calvarium unremarkable. No hemo-sinus. No pneumocephalus. Facial bones: Mandible intact, no bony dislocation of the temporomandibular joints. Pterygoid plates intact. There is slight lobular membrane thickening in the maxillary sinuses. The proctor are intact. The bony orbital proctor intact. No post septal or retrobulbar or orbital hematoma. The anterior and posterior proctor of the frontal sinuses intact. The ethmoid air cells clear. The orbital globes appeared unremarkable. Sphenoid sinuses clear. There is no mastoid effusion. The middle ear cavities unremarkable. Zygomatic arch is intact. The nasal bones and bony nasal septum nonacute with mild rightward nasal septal spurring chronic. IMPRESSION: CT HEAD: No hemorrhage or acute-appearing abnormality. CT FACIAL BONES: No facial fracture or hemo-sinus. Reviewed: Reviewed by Me, Reviewed/Discussed Diagonstic Imaging: Xray Plain Films/CT/US/NM/MRI: knee Comments Date of Exam:02/14/22 KNEE 3 VIEW RIGHT Indication: Fall, pain. Findings: Severe bony demineralization which increases the risk of fracture but can make nondisplaced injuries radiographically imperceptible. There is chondrocalcinosis and tricompartmental arthritis. The knee is held in near 90 degree flexion resulting in caudal positioning of the patella from its normal position. A fracture cannot be identified and no appreciable joint effusion. Impression: Severely demineralized bones with likely advanced osteoporosis. No appreciable fracture deformity. Reviewed: Reviewed by Me, Reviewed/Discussed Diagonstic Imaging: Xray Plain Films/CT/US/NM/MRI: chest Comments Date of Exam:02/14/22 RIBS/BILATERAL WITH CHEST Indication: Fall, bilateral pain. Findings: There is underlying bony demineralization which substantially limits radiographic sensitivity for demonstrating nondisplaced fracture deformities. There is an old ununited fracture of the distal 3rd of the right clavicle and postoperative changes to the proximal right humerus. There are multilevel thoracolumbar compression deformities, multiple levels showing kyphoplasty cement. No findings of lung contusion, pneumothorax or hemothorax. No free air beneath the diaphragms. No appreciable displaced rib fracture deformity of the the exuberant calcifications of the distal costal cartilage. Impression: No appreciable acute rib fracture deformity or pulmonary parenchymal/pleural injury. Old distal 3rd right clavicular fracture postop changes. Multiple treated and untreated osteoporotic vertebral compression deformities. Reviewed: Reviewed by Me, Reviewed/Discussed Departure Impression Primary Impression: Fall Qualified Codes: W19.XXXA - Unspecified fall, initial encounter Additional Impressions: Contusion of rib on left side Qualified Codes: S20.212A - Contusion of left front wall of thorax, initial encounter Contusion of face Qualified Codes: S00.83XA - Contusion of other part of head, initial encounter Abrasion, multiple sites Contusion of knee, right Qualified Codes: S80.01XA - Contusion of right knee, initial encounter Disposition: HOME, SELF-CARE Condition: Stable Departure-Patient Inst. Referrals: POOJA GORDON MD (PCP/Family) Primary Care Physician Patient Instructions: Minor Head Injury, Adult ED, Wound Care ED, Bruised Rib Add. Discharge Instructions: Follow-up with Dr. Gordon as needed for further outpatient management and pain management if needed change in your pain medication Topical lidocaine with menthol use as directed on pack Keep abrasions clean with warm soapy water All discharge instructions reviewed with patient and/or family. Voiced understanding. Scripts Hydrocodone/Acetaminophen (Hydrocodone-Acetamin 5-325 mg) 5 Mg-325 Mg Tablet 1 TAB PO Q8H PRN for PAIN-MODERATE (5-7), #6 TAB Prov: HALLEY LONG DO 02/14/22 HALLEY LONG DO Feb 14, 2022 18:24
--- NOTE | 2022-02-14 18:58 | Diagnostic Imaging Report ---
Indication: Fall, pain. Findings: Severe bony demineralization which increases the risk of fracture but can make nondisplaced injuries radiographically imperceptible. There is chondrocalcinosis and tricompartmental arthritis. The knee is held in near 90 degree flexion resulting in caudal positioning of the patella from its normal position. A fracture cannot be identified and no appreciable joint effusion. Impression: Severely demineralized bones with likely advanced osteoporosis. No appreciable fracture deformity. Dictated by: Dictated on workstation # [id number]
--- NOTE | 2022-02-14 19:01 | Diagnostic Imaging Report ---
PROCEDURE: CT head and maxillofacial without contrast. TECHNIQUE: Multiple contiguous axial images were obtained through the head and facial bones without the use of intravenous contrast. Auto Exposure Controls were utilized during the CT exam to meet ALARA standards for radiation dose reduction. INDICATION: Fall, facial bruising. Compared with head CT 05/27/2021. Head: There is no hemorrhage, hydrocephalus, edema, mass, mass effect or evidence for elevated intracerebral pressures. There has been no interval change. No abnormal extra-axial collection. Cerebral cortical volume stable. No evidence for edema. Calvarium unremarkable. No hemo-sinus. No pneumocephalus. Facial bones: Mandible intact, no bony dislocation of the temporomandibular joints. Pterygoid plates intact. There is slight lobular membrane thickening in the maxillary sinuses. The proctor are intact. The bony orbital proctor intact. No post septal or retrobulbar or orbital hematoma. The anterior and posterior proctor of the frontal sinuses intact. The ethmoid air cells clear. The orbital globes appeared unremarkable. Sphenoid sinuses clear. There is no mastoid effusion. The middle ear cavities unremarkable. Zygomatic arch is intact. The nasal bones and bony nasal septum nonacute with mild rightward nasal septal spurring chronic. IMPRESSION: CT HEAD: No hemorrhage or acute-appearing abnormality. CT FACIAL BONES: No facial fracture or hemo-sinus. Dictated by: Dictated on workstation # [id number]
--- NOTE | 2022-02-14 19:17 | Diagnostic Imaging Report ---
Indication: Fall, bilateral pain. Findings: There is underlying bony demineralization which substantially limits radiographic sensitivity for demonstrating nondisplaced fracture deformities. There is an old ununited fracture of the distal 3rd of the right clavicle and postoperative changes to the proximal right humerus. There are multilevel thoracolumbar compression deformities, multiple levels showing kyphoplasty cement. No findings of lung contusion, pneumothorax or hemothorax. No free air beneath the diaphragms. No appreciable displaced rib fracture deformity of the the exuberant calcifications of the distal costal cartilage. Impression: No appreciable acute rib fracture deformity or pulmonary parenchymal/pleural injury. Old distal 3rd right clavicular fracture postop changes. Multiple treated and untreated osteoporotic vertebral compression deformities. Dictated by: Dictated on workstation # [id number]
[2022-02-14] MEDS ORDERED: ACHD5005 PO (20:00)
[2022-02-14] MEDS ORDERED: HYDROcodone/APAP 5 MG/325 MG (LORTAB) TAB PO ONE (20:00)
[2022-02-14 20:05] VITALS: BP 118/61
== END 2022-02-14 20:07 | disposition home or self-care (01) ==
LOC: EDUNIT# 18:01 → ER FS 18:02
DX: S00.83XA Contusion of other part of head, initial encounter (principal); S20.212A Contusion of left front wall of thorax, initial encounter; S80.01XA Contusion of right knee, initial encounter; S80.212A Abrasion, left knee, initial encounter; S40.811A Abrasion of right upper arm, initial encounter; S40.812A Abrasion of left upper arm, initial encounter; W18.30XA Fall on same level, unspecified, initial encounter
CPT/HCPCS: 70450; 70486; 71111; 73562; 99283

== ENCOUNTER 2022-10-13 10:14 | Emergency (ER) | payer MEDICARE ==
[~2022-10-13] VITALS: Ht 162 cm; Wt 45.0 kg
[2022-10-13 10:33] LABS: BASOPHILS # (AUTO) 0.1 10^3/uL (0.0-0.1); BASOPHILS % (AUTO) 1 % (0-10); EOSINOPHILS # (AUTO) 0.3 10^3/uL (0.0-0.3); EOSINOPHILS % (AUTO) 4 % (0-10); HEMATOCRIT 33 % (35-52); HEMOGLOBIN 10.6 g/dL (11.5-16.0); LYMPHOCYTES # (AUTO) 2.7 10^3/uL (1.0-4.0); LYMPHOCYTES % (AUTO) 34 % (12-44); MEAN CORPUSCULAR HEMOGLOBIN 33 pg (25-34); MEAN CORPUSCULAR HGB CONC 32 g/dL (32-36); MEAN CORPUSCULAR VOLUME 102 fL (80-99); MONOCYTES % (AUTO) 13 % (0-12); NEUTROPHILS # (AUTO) 3.9 10^3/uL (1.8-7.8); NEUTROPHILS % (AUTO) 49 % (42-75); PLATELET COUNT 341 10^3/uL (130-400); WHITE BLOOD COUNT 8.1 10^3/uL (4.3-11.0)
--- NOTE | 2022-10-13 10:37 | ED General ---
General Stated Complaint: WEAKNESS, TROUBLE BREATHING Source of Information: Patient, EMS History of Present Illness Date Seen by Provider: Oct 13, 2022 Time Seen by Provider: 10:16 Initial Comments 71-year-old female presenting with complaints of increased weakness and shortness of breath since getting up to use the restroom this morning. She does have history of myasthenia gravis and feels like that is flaring up and going into crisis currently. She denies having fever or chills. She has not been c oughing. She feels like she cannot take in a breath and is speaking very softly as she seems like she is not able to get a good breath to speak with. She feels like she is weak overall but is very concerned about her breathing. She is requesting to get to for plasmapheresis as she feels again that she is in a crisis with her myasthenia gravis. Timing/Duration: 1-3 Hours Severity: Severe Associated Systoms: No Chest Pain, No Cough, No Diaphoresis, No Fever/Chills, No Headaches; Malaise; No Nausea/Vomiting, No Rash, No Seizure; Shortness of Air; No Syncope; Weakness (Generalized) Allergies and Home Medications Allergies Coded Allergies: diphenhydramine (Verified Allergy, Intermediate, MUSCLE PAIN; AGITATION, 06/09/19) promethazine (Verified Allergy, Mild, AGITATION, 06/09/19) Patient Home Medication List Home Medication List Reviewed: Yes Abaloparatide (Tymlos) 1.56 Ml Pen.injctr, 80 MCG SC HS, (Reported) Entered as Reported by: MAY MASON on 04/17/20 1131 Acetaminophen (Tylenol Extra Strength) 500 Mg Tablet, 1,000 MG PO Q8H PRN for PAIN-MILD (1-4), (Reported) Entered as Reported by: DOLORES DYER on 01/18/22 1435 Carvedilol (Carvedilol) 3.125 Mg Tablet, 3.125 MG PO BID, (Reported) Entered as Reported by: ANGELO SETH on 06/09/19 1340 Duloxetine HCl (Duloxetine HCl) 60 Mg Capsule.dr, 60 MG PO BID, (Reported) Entered as Reported by: ANGELO SETH on 06/09/19 1340 Fentanyl (Fentanyl Patch 25 MCG) 1 Each Patch.td72, 25 MCG TD Q72H, (Reported) Entered as Reported by: MAY MASON on 04/17/20 1131 Gabapentin (Neurontin) 300 Mg Capsule, 400 MG PO QID, (Reported) Entered as Reported by: MAY MASON on 04/17/20 113 Gabapentin (Gabapentin) 100 Mg Capsule, 100 MG PO QID, (Reported) Entered as Reported by: DOLORES DYER on 01/18/22 1426 Hydrocodone/Acetaminophen (Hydrocodone-Acetamin 5-325 mg) 5 Mg-325 Mg Tablet, 1 TAB PO Q8H PRN for PAIN-MODERATE (5-7) Prescribed by: HALLEY LONG on 02/14/222000 Levothyroxine Sodium (Levothyroxine Sodium) 100 Mcg Tablet, 100 MCG PO HS, (Reported) Entered as Reported by: DOLORES DYER on 01/18/22 1436 Lipase/Protease/Amylase (Creon Dr 24,000 Units Capsule) 1 Each Capsule.dr, 4 CAP PO TIDWM, (Reported) Entered as Reported by: ANGELO SETH on 06/09/19 134 Omeprazole (Omeprazole) 40 Mg Capsule.dr, 40 MG PO DAILY, (Reported) Entered as Reported by: RICCI BLAIR on 07/07/15 1540 Pravastatin Sodium (Pravastatin Sodium) 10 Mg Tablet, 10 MG PO HS, (Reported) Entered as Reported by: ANGELO SETH on 06/09/19 1340 Pyridostigmine [place] (Mestinon) 60 Mg Tab, 60 MG PO TID, (Reported) Entered as Reported by: RICCI BLAIR on 07/07/15 1445 Ropinirole HCl (Ropinirole HCl) 0.5 Mg Tablet, 0.5 MG PO HS, (Reported) Entered as Reported by: RICCI BLAIR on 07/07/15 1540 Sulfamethoxazole/Trimethoprim (Bactrim Ds Tablet) 800 Mg-160 Mg Tablet, 1 EACH PO BID, (Reported) Entered as Reported by: DOLORES DYER on 01/18/22 1422 Temazepam (Temazepam) 30 Mg Capsule, 30 MG PO HS PRN for SLEEP, (Reported) Entered as Reported by: ANGELO SETH on 06/09/19 1340 Trazodone HCl (Trazodone HCl) 50 Mg Tablet, 50 MG PO 1999, (Reported) Entered as Reported by: DOLORES DYER on 01/18/22 1426 Review of Systems Review of Systems Constitutional: No chills, No fever; malaise, weakness EENTM: no symptoms reported Respiratory: see HPI Cardiovascular: No chest pain Gastrointestinal: no symptoms reported Genitourinary: no symptoms reported Musculoskeletal: no symptoms reported Skin: no symptoms reported Psychiatric/Neurological: Anxiety Past Mpftbaj-Oqgpla-Danphd Hx Patient Social History Tobacco Use?: No Use of E-Cig and/or Vaping dev: No Substance use?: No Alcohol Use?: No Immunizations Up To Date First/Initial COVID19 Vaccinat: 10/10/20 Second COVID19 Vaccination Miki: 11/07/20 Third COVID19 Vaccination Date: 07/30/21 Seasonal Allergies Seasonal Allergies: No Past Medical History Surgery/Hospitalization HX: hospice for mystenia gravis Surgeries: Yes (ORIF left hip, right shoulder sx, cholecystectomy, spleenectomy) Gallbladder, Orthopedic Respiratory: Yes Pneumonia Currently Using CPAP: No Currently Using BIPAP: No Cardiac: Yes Neurological: Yes (MYASTHENIA GRAVIS) Reproductive Disorders: No Female Reproductive Disorders: Denies Sexually Transmitted Disease: No HIV/AIDS: No Genitourinary: No Gastrointestinal: Yes (GASTRITIS, MALNUTRITION, GASTRIC BYPASS, STOMACH STAPLING) Pancreatitis, Chronic Diarrhea Musculoskeletal: Yes (Kyphoplasty vertebrae of compression fx) Osteoporosis, Fractures Endocrine: No HEENT: Yes Tonsilitis Loss of Vision: Denies Hearing Impairment: Denies Cancer: No Psychosocial: Yes Anxiety Integumentary: No Blood Disorders: No Adverse Reaction/Blood Tranf: No Family Medical History Diabetes mellitus 19 MOTHER FH: lung cancer 19 FATHER Cancer, Diabetes Physical Exam Vital Signs Vital Signs - First Documented 10/13/22 10:34 Temp 36.5 Pulse 88 Resp 12 B/P (MAP) 123/72 (89) Pulse Ox 99 O2 Delivery Room Air Capillary Refill : Height, Weight, BMI Height: 5'5.00" Weight: 113lbs. 0oz. 51.263209cw; 19.00 BMI Method:Stated General Appearance: Anxious, Chronically ill, Mild Distress HEENT: No Moist Mucous Membranes (Slightly dry mucous membranes) Neck: Full Range of Motion, Normal Inspection, Non Tender, Supple Respiratory: Chest Non Tender, Accessory Muscle Use, Decreased Breath Sounds, Respiratory Distress Cardiovascular: Regular Rate, Rhythm, Normal Peripheral Pulses Gastrointestinal: Normal Bowel Sounds, No Pulsatile Mass, Non Tender, Soft Rectal: Deferred Extremity: Normal Capillary Refill, Normal Inspection, No Pedal Edema Neurologic/Psychiatric: Alert, Oriented x3 Skin: Warm/Dry Focused Exam Lactate Level 10/13/22 10:35: Lactic Acid Level 1.52 Lactic Acid Level Laboratory Tests Test 10/13/22 10:35 Lactic Acid Level 1.52 MMOL/L (0.50-2.00) Progress/Results/Core Measures Suspected Sepsis SIRS Temperature: Pulse: Respiratory Rate: Laboratory Tests 10/13/22 10:23: White Blood Count 8.1 Blood Pressure / Mean: 10/13/22 10:35: Lactic Acid Level 1.52 Laboratory Tests 10/13/22 10:23: Creatinine 1.06, Platelet Count 341, Total Bilirubin 0.3 Results/Orders Lab Results Laboratory Tests Test 10/13/22 10:23 10/13/22 10:35 10/13/22 11:03 10/13/22 12:05 Range/Units White Blood Count 8.1 4.3-11.0 10^3/uL Red Blood Count 3.25 L 3.80-5.11 10^6/uL Hemoglobin 10.6 L 11.5-16.0 g/dL Hematocrit 33 L 35-52 % Mean Corpuscular Volume 102 H 80-99 fL Mean Corpuscular Hemoglobin 33 25-34 pg Mean Corpuscular Hemoglobin Concent 32 32-36 g/dL Red Cell Distribution Width 14.2 10.0-14.5 % Platelet Count 341 130-400 10^3/uL Mean Platelet Volume 10.0 9.0-12.2 fL Immature Granulocyte % (Auto) 1 % Neutrophils (%) (Auto) 49 42-75 % Lymphocytes (%) (Auto) 34 12-44 % Monocytes (%) (Auto) 13 H 0-12 % Eosinophils (%) (Auto) 4 0-10 % Basophils (%) (Auto) 1 0-10 % Neutrophils # (Auto) 3.9 1.8-7.8 10^3/uL Lymphocytes # (Auto) 2.7 1.0-4.0 10^3/uL Monocytes # (Auto) 1.0 0.0-1.0 10^3/uL Eosinophils # (Auto) 0.3 0.0-0.3 10^3/uL Basophils # (Auto) 0.1 0.0-0.1 10^3/uL Immature Granulocyte # (Auto) 0.0 0.0-0.1 10^3/uL Sodium Level 139 135-145 MMOL/L Potassium Level 4.6 3.6-5.0 MMOL/L Chloride Level 103 98-107 MMOL/L Carbon Dioxide Level 28 21-32 MMOL/L Anion Gap 8 5-14 MMOL/L Blood Urea Nitrogen 29 H 7-18 MG/DL Creatinine 1.06 0.60-1.30 MG/DL Estimat Glomerular Filtration Rate 56 BUN/Creatinine Ratio 27 Glucose Level 95 70-105 MG/DL Calcium Level 8.2 L 8.5-10.1 MG/DL Corrected Calcium 9.2 8.5-10.1 MG/DL Total Bilirubin 0.3 0.1-1.0 MG/DL Aspartate Amino Transf (AST/SGOT) 17 5-34 U/L Alanine Aminotransferase (ALT/SGPT) 12 0-55 U/L Alkaline Phosphatase 98 40-136 U/L C-Reactive Protein 0.65 H <0.50 MG/DL Total Protein 5.0 L 6.4-8.2 GM/DL Albumin 2.8 L 3.2-4.5 GM/DL Lactic Acid Level 1.52 0.50-2.00 MMOL/L Influenza Type A (RT-PCR) Not Detected Not Detecte Influenza Type B (RT-PCR) Not Detected Not Detecte SARS-CoV-2 RNA (RT-PCR) Not Detected Not Detecte Urine Color YELLOW Urine Clarity CLEAR Urine pH 6.5 5-9 Urine Specific [place] 1.015 L 1.016-1.022 Urine Protein NEGATIVE NEGATIVE Urine Glucose (UA) NEGATIVE NEGATIVE Urine Ketones NEGATIVE NEGATIVE Urine Nitrite NEGATIVE NEGATIVE Urine Bilirubin NEGATIVE NEGATIVE Urine Urobilinogen 1.0 < = 1.0 MG/DL Urine Leukocyte Esterase TRACE H NEGATIVE Urine RBC (Auto) NEGATIVE NEGATIVE Urine RBC NONE /HPF Urine WBC 10-25 H /HPF Urine Squamous Epithelial Cells 5-10 /HPF Urine Crystals NONE /LPF Urine Bacteria FEW H /HPF Urine Casts NONE /LPF Urine Mucus NEGATIVE /LPF Urine Culture Indicated YES My Orders Orders - ERIN HAMILTON MD Cbc With Automated Diff (10/13/22 10:29) Comprehensive Metabolic Panel (10/13/22 10:29) Blood Culture (10/13/22 10:29) Chest 1 View Ap/Pa Only (10/13/22 10:29) O2 (10/13/22 10:29) Ed Iv/Invasive Line Start (10/13/22 10:29) Monitor-Rhythm Ecg Trace Only (10/13/22 10:29) Crp Fs (10/13/22 10:29) Lactic Acid Analyzer (10/13/22 10:29) Covid 19 Inhouse Test (10/13/22 10:59) Influenza A And B By Pcr (10/13/22 10:59) Isolation Central Supply Req (10/13/22 10:59) Ua Culture If Indicated (10/13/22 12:09) Urine Culture (10/13/22 12:05) Vital Signs/I&O 10/13/22 10/13/22 10:34 11:01 Temp 36.5 36.2 Pulse 88 80 Resp 12 16 B/P (MAP) 123/72 (89) 131/64 Pulse Ox 99 99 O2 Delivery Room Air Room Air Capillary Refill : Progress Note #1: Progress Note Potential life-threatening diagnosis of myasthenia gravis crisis, sepsis, respiratory failure, electrolyte imbalance. Obtain blood work for complete blood count, comprehensive metabolic profile, blood cultures, CRP, lactic acid. Urine specimen to perform urinalysis looking for signs of infection. Obtain chest x-ray to evaluate for possible infiltrate versus effusion versus pneumothorax versus cardiomegaly. Reviewed online medical reference of [employer] looking for treatment options for her presentation. Unfortunately it only lasts plasmapheresis and IVIG as options to treat myasthenia gravis crisis. At this point the patient's oxygen saturation is 98 to 100% and breathing 10-12 times a minute. Will place a call to transfer center at [facility] to find out if they have any beds and possible transfer as I do not have respiratory therapy or any way to check her vital capacity or NIF. 1031 d/w PAMELA Barba, at [facility] transfer center and she took basic information on the patient and will review with physician advisor and get back to us. In the meantime will have IVF infuse from EMS NS 1 Liter that was started en route to ED. Progress Note #2: Time: 10:51 Progress Note Complete blood count shows white blood cells are in normal range at 8.1 without elevation for infection. Her hemoglobin is 10.6 which is similar to blood work from last year showing anemia. She has elevation of her BUN to 29 and creatinine to 1.06 making her GFR 56. Typically in the past she has had a BUN around 8 and a creatinine around 0.7. Her CRP is slightly elevated to 0.65 which could go along with inflammation or stress or infection. Waiting on chest x-ray and to hear back from [facility]. 1056 Updated PAMELA Barba, from transfer steinauer. Advised her of labs showing some dehydration and a clear Chest xray. She advised Dr. Khan accepted the patient for transfer but wanted to review labs and have a Covid swab done to test for that. I advised her that my personal interpretation of the 1 view chest x-ray was that there was no acute infiltrate or effusion. Progress Note #3: Time: 11:32 Progress Note I reviewed the radiologist report on the 1 view chest x-ray and they did not see any infiltrate. PAMELA Barba, from [facility] called back and advised of the negative COVID and influenza swab. She we will work on the bed assignment with Dr. Khan as the accepting provider. Will call back when a room assignment is available. Diagnostic Imaging Diagonstic Imaging: Xray Plain Films/CT/US/NM/MRI: chest Comments [facility]. [place], [place] NAME: JACK CARDONA [facility] REC#: [id number] PT STATUS: REG ER : 1950 PHYSICIAN: ERIN HAMILTON MD ADMIT DATE: 10/13/22/ER FS Signed Date of Exam:10/13/22 CHEST 1 VIEW AP/PA ONLY EXAMINATION: Chest radiograph, portable AP view. DATE: 10/13/2022 11:05 AM INDICATION: 71-year-old female, shortness of breath. COMPARISON: FINDINGS: Heart size and mediastinal contours are unchanged. There is no identified pneumothorax. There is no large pleural effusion. There is no identified interval focal airspace consolidation. There is a sideplate and screw fixation hardware at the level of the right proximal humerus. There is a nonunited remote prior fracture of the lateral third of the right clavicle. There are multilevel kyphoplasty changes. IMPRESSION: 1. No identified acute cardiopulmonary abnormality. Dictated by: Dictated on workstation # [id number] Dict: 10/13/22 1107 Trans: 10/13/22 1141 [facility] [id number] Interpreted by: PIPE DELGADO MD Electronically signed by: PIPE DELGADO MD 10/13/22 1141 Reviewed: Reviewed by Me (I reviewed the radiologist report at 1145) Critical Care Note Critical Care Total Time (minutes) 45 minutes Progress 45 minutes of critical care time was spent with the patient. Time excludes separately billable procedures. Time was spent obtaining history from patient and EMS and reviewing her electronic medical record, ordering tests and reviewing results, ordering interventions and reviewing response, discussion with consultants, documentation in the chart. Patient was at risk of respiratory failure with her myasthenia gravis and concern for crisis. She required my immediate and direct monitoring and intervention to help stabilize and ensure her airway was maintained. Departure Impression Primary Impression: Myasthenia gravis in crisis Additional Impression: Dyspnea Qualified Codes: R06.02 - Shortness of breath Disposition: XFER SHT-TRM HOSP Condition: Critical Transfer Transfer Reason: Exceeds level of care (Neurology and Pulmonary services, [place] smapheresis and IVIG to treat MG crisis) Time Spoke to Accepting Phy: 10:[address] Khan, neurologist from [facility], is accepting physician for the patient. he did request that she have a covid swab to ensure that was not part of her problems. He is aware of the labs and Chest xray not showing pneumonia. 1132 Updated [facility] transfer center that patient was negative on influenza and Covid. They will call back with a bed assignment. We did check with air ambulance services but due to weather and low clouds they are not currently flying. Will go by ground as soon as bed assignment is available. Transfer Facility: [facility] Method of Transfer: EMS Departure-Patient Inst. Referrals: POOJA GORDON MD (PCP/Family) Primary Care Physician ERIN HAMILTON MD Oct 13, 2022 10:37
[2022-10-13 10:43] LABS: ALBUMIN 2.8 GM/DL (3.2-4.5); BILIRUBIN,TOTAL 0.3 MG/DL (0.1-1.0); CALCIUM 8.2 MG/DL (8.5-10.1); CREATININE SERUM 1.06 MG/DL (0.60-1.30); POTASSIUM 4.6 MMOL/L (3.6-5.0)
[2022-10-13 11:01] VITALS: BP 131/64
--- NOTE | 2022-10-13 11:11 | Diagnostic Imaging Report ---
EXAMINATION: Chest radiograph, portable AP view. DATE: 10/13/2022 11:05 AM INDICATION: 71-year-old female, shortness of breath. COMPARISON: FINDINGS: Heart size and mediastinal contours are unchanged. There is no identified pneumothorax. There is no large pleural effusion. There is no identified interval focal airspace consolidation. There is a sideplate and screw fixation hardware at the level of the right proximal humerus. There is a nonunited remote prior fracture of the lateral third of the right clavicle. There are multilevel kyphoplasty changes. IMPRESSION: 1. No identified acute cardiopulmonary abnormality. Dictated by: Dictated on workstation # [id number]
[2022-10-13 12:23] LABS: BILIRUBIN,URINE NEGATIVE (NEGATIVE); CLARITY,URINE CLEAR; COLOR,URINE YELLOW; GLUCOSE, URINE (UA) NEGATIVE (NEGATIVE); KETONES,URINE NEGATIVE (NEGATIVE); LEUKOCYTE ESTERASE ,URINE TRACE (NEGATIVE); NITRITE,URINE NEGATIVE (NEGATIVE); PH,URINE 6.5 (5-9); PROTEIN,URINE NEGATIVE (NEGATIVE)
[2022-10-13 12:26] LABS: BACTERIA,URINE FEW /HPF
== END 2022-10-13 12:15 | disposition short-term general hospital (02) ==
LOC: EDUNIT# 10:14 → ER FS 10:15
DX: G70.01 Myasthenia gravis with (acute) exacerbation (principal); R79.82 Elevated C-reactive protein (CRP); Z20.822 Contact with and (suspected) exposure to COVID-19
CPT/HCPCS: 36415; 71045; 80053; 81000; 83605; 85025; 86141; 87040; 87088; 87636; 93041

== ENCOUNTER 2022-11-16 15:44 | Emergency (ER) | payer MEDICARE ==
--- NOTE | 2022-11-16 15:54 | ED Abdominal Pain ---
General Chief Complaint: Abdominal/GI Problems Stated Complaint: ABD PAIN-GENERALIZED History of Present Illness Date Seen by Provider: Nov 16, 2022 Time Seen by Provider: 15:54 Initial Comments 72-year-old female presents with some generalized abdominal pain. She reports is been going on for about a week. Patient has a longstanding feeding tube. He reports that started around the time she switched feeds. She is concerned about maybe a pancreatitis. Patient has not called her primary care provider followed up with her general surgeon or GI specialist. No reports of fevers chills nausea or vomiting. Allergies and Home Medications Allergies Coded Allergies: diphenhydramine (Verified Allergy, Intermediate, MUSCLE PAIN; AGITATION, 06/09/19) promethazine (Verified Allergy, Mild, AGITATION, 06/09/19) Patient Home Medication List Home Medication List Reviewed: Yes Abaloparatide (Tymlos) 1.56 Ml Pen.injctr, 80 MCG SC HS, (Reported) Entered as Reported by: MAY MASON on 04/17/20 1131 Acetaminophen (Tylenol Extra Strength) 500 Mg Tablet, 1,000 MG PO Q8H PRN for PAIN-MILD (1-4), (Reported) Entered as Reported by: DOLORES DYER on 01/18/22 1435 Carvedilol (Carvedilol) 3.125 Mg Tablet, 3.125 MG PO BID, (Reported) Entered as Reported by: ANGELO SETH on 06/09/19 1340 Cephalexin (Cephalexin) 500 Mg Tablet, 500 MG PO QID Prescribed by: HALLEY LONG on 11/16/22 1758 Duloxetine HCl (Duloxetine HCl) 60 Mg Capsule.dr, 60 MG PO BID, (Reported) Entered as Reported by: ANGELO SEHT on 06/09/19 1340 Fentanyl (Fentanyl Patch 25 MCG) 1 Each Patch.td72, 25 MCG TD Q72H, (Reported) Entered as Reported by: MAY MASON on 04/17/20 1131 Gabapentin (Neurontin) 300 Mg Capsule, 400 MG PO QID, (Reported) Entered as Reported by: MAY MASON on 04/17/20 1131 Gabapentin (Gabapentin) 100 Mg Capsule, 100 MG PO QID, (Reported) Entered as Reported by: DOLORES DYER on 01/18/22 1426 Hydrocodone/Acetaminophen (Hydrocodone-Acetamin 5-325 mg) 5 Mg-325 Mg Tablet, 1 TAB PO Q8H PRN for PAIN-MODERATE (5-7) Prescribed by: HALLEY LONG on 02/14/222000 Levothyroxine Sodium (Levothyroxine Sodium) 100 Mcg Tablet, 100 MCG PO HS, (Reported) Entered as Reported by: DOLORES DYER on 01/18/22 1436 Lipase/Protease/Amylase (Creon Dr 24,000 Units Capsule) 1 Each Capsule.dr, 4 CAP PO TIDWM, (Reported) Entered as Reported by: ANGELO SETH on 06/09/19 1340 Omeprazole (Omeprazole) 40 Mg Capsule.dr, 40 MG PO DAILY, (Reported) Entered as Reported by: RICCI BLAIR on 07/07/15 1540 Pravastatin Sodium (Pravastatin Sodium) 10 Mg Tablet, 10 MG PO HS, (Reported) Entered as Reported by: ANGELO SETH on 06/09/19 1340 Pyridostigmine [place] (Mestinon) 60 Mg Tab, 60 MG PO TID, (Reported) Entered as Reported by: RICCI BLAIR on 07/07/15 1445 Ropinirole HCl (Ropinirole HCl) 0.5 Mg Tablet, 0.5 MG PO HS, (Reported) Entered as Reported by: RICCI BLAIR on 07/07/15 1540 Sulfamethoxazole/Trimethoprim (Bactrim Ds Tablet) 800 Mg-160 Mg Tablet, 1 EACH PO BID, (Reported) Entered as Reported by: DOLORES DYER on 01/18/22 1422 Temazepam (Temazepam) 30 Mg Capsule, 30 MG PO HS PRN for SLEEP, (Reported) Entered as Reported by: ANGELO SETH on 06/09/19 1340 Trazodone HCl (Trazodone HCl) 50 Mg Tablet, 50 MG PO 2000, (Reported) Entered as Reported by: DOLORES DYER on 01/18/22 1426 Review of Systems Review of Systems Constitutional: no symptoms reported EENTM: No Symptoms Reported Respiratory: No Symptoms Reported Gastrointestinal: Abdominal Pain; Denies Diarrhea, Denies Nausea Genitourinary: No Symptoms Reported Musculoskeletal: no symptoms reported Skin: no symptoms reported Psychiatric/Neurological: No Symptoms Reported Endocrine: No Symptoms Reported Past Habtzbj-Ipgzrk-Aorurg Hx Immunizations Up To Date First/Initial COVID19 Vaccinat: 10/10/20 Second COVID19 Vaccination Miki: 11/07/20 Third COVID19 Vaccination Date: 07/30/21 Seasonal Allergies Seasonal Allergies: No Past Medical History Surgery/Hospitalization HX: hospice for mystenia gravis Surgeries: Yes (ORIF left hip, right shoulder sx, cholecystectomy, spleenectomy) Gallbladder, Orthopedic Respiratory: Yes Pneumonia Currently Using CPAP: No Currently Using BIPAP: No Cardiac: Yes Neurological: Yes (MYASTHENIA GRAVIS) Reproductive Disorders: No Female Reproductive Disorders: Denies Sexually Transmitted Disease: No HIV/AIDS: No Genitourinary: No Gastrointestinal: Yes (GASTRITIS, MALNUTRITION, GASTRIC BYPASS, STOMACH STAPLING) Pancreatitis, Chronic Diarrhea Musculoskeletal: Yes (Kyphoplasty vertebrae of compression fx) Osteoporosis, Fractures Endocrine: No HEENT: Yes Tonsilitis Loss of Vision: Denies Hearing Impairment: Denies Cancer: No Psychosocial: Yes Anxiety Integumentary: No Blood Disorders: No Adverse Reaction/Blood Tranf: No Family Medical History Diabetes mellitus 19 MOTHER FH: lung cancer 19 FATHER Cancer, Diabetes Physical Exam Vital Signs Vital Signs - First Documented 11/16/22 16:00 Temp 36.4 Pulse 67 Resp 16 B/P (MAP) 94/60 (71) Pulse Ox 100 O2 Delivery Room Air Capillary Refill : Height/Weight/BMI Height: 5'5.00" Weight: 113lbs. 0oz. [id number]; 17.00 BMI Method:Stated General Appearance: WD/WN, no apparent distress Respiratory: lungs clear, normal breath sounds Cardiovascular: normal peripheral pulses, regular rate, rhythm Gastrointestinal: soft, tenderness (Generalized), other (Feeding tube in place) Extremities: non-tender Neurologic/Psychiatric: alert, normal mood/affect, oriented x 3 Skin: normal color, warm/dry Focused Exam Lactate Level 11/16/22 16:45: Lactic Acid Level 1.03 Lactic Acid Level Laboratory Tests Test 11/16/22 16:45 Lactic Acid Level 1.03 MMOL/L (0.50-2.00) Progress/Results/Core Measures Results/Orders Lab Results Laboratory Tests Test 11/16/22 16:00 11/16/22 16:45 11/16/22 17:34 Range/Units White Blood Count 18.1 H 4.3-11.0 10^3/uL Red Blood Count 3.61 L 3.80-5.11 10^6/uL Hemoglobin 11.8 11.5-16.0 g/dL Hematocrit 37 35-52 % Mean Corpuscular Volume 102 H 80-99 fL Mean Corpuscular Hemoglobin 33 25-34 pg Mean Corpuscular Hemoglobin Concent 32 32-36 g/dL Red Cell Distribution Width 12.8 10.0-14.5 % Platelet Count 379 130-400 10^3/uL Mean Platelet Volume 10.0 9.0-12.2 fL Immature Granulocyte % (Auto) 1 % Neutrophils (%) (Auto) 73 42-75 % Lymphocytes (%) (Auto) 13 12-44 % Monocytes (%) (Auto) 12 0-12 % Eosinophils (%) (Auto) 1 0-10 % Basophils (%) (Auto) 1 0-10 % Neutrophils # (Auto) 13.1 H 1.8-7.8 10^3/uL Lymphocytes # (Auto) 2.4 1.0-4.0 10^3/uL Monocytes # (Auto) 2.1 H 0.0-1.0 10^3/uL Eosinophils # (Auto) 0.2 0.0-0.3 10^3/uL Basophils # (Auto) 0.1 0.0-0.1 10^3/uL Immature Granulocyte # (Auto) 0.1 0.0-0.1 10^3/uL Neutrophils % (Manual) 79 % Lymphocytes % (Manual) 13 % Monocytes % (Manual) 8 % Sodium Level 137 135-145 MMOL/L Potassium Level 5.7 H 3.6-5.0 MMOL/L Chloride Level 104 98-107 MMOL/L Carbon Dioxide Level 26 21-32 MMOL/L Anion Gap 7 5-14 MMOL/L Blood Urea Nitrogen 23 H 7-18 MG/DL Creatinine 0.89 0.60-1.30 MG/DL Estimat Glomerular Filtration Rate 68 BUN/Creatinine Ratio 26 Glucose Level 101 70-105 MG/DL Calcium Level 8.2 L 8.5-10.1 MG/DL Corrected Calcium 8.9 8.5-10.1 MG/DL Magnesium Level 2.1 1.6-2.4 MG/DL Total Bilirubin 0.3 0.1-1.0 MG/DL Aspartate Amino Transf (AST/SGOT) 32 5-34 U/L Alanine Aminotransferase (ALT/SGPT) 21 0-55 U/L Alkaline Phosphatase 146 H 40-136 U/L Total Protein 5.7 L 6.4-8.2 GM/DL Albumin 3.1 L 3.2-4.5 GM/DL Lipase 5 L 8-78 U/L Lactic Acid Level 1.03 0.50-2.00 MMOL/L Urine Color YELLOW Urine Clarity CLEAR Urine pH 5.0 5-9 Urine Specific [place] 1.015 L 1.016-1.022 Urine Protein NEGATIVE NEGATIVE Urine Glucose (UA) NEGATIVE NEGATIVE Urine Ketones TRACE H NEGATIVE Urine Nitrite NEGATIVE NEGATIVE Urine Bilirubin NEGATIVE NEGATIVE Urine Urobilinogen 0.2 < = 1.0 MG/DL Urine Leukocyte Esterase NEGATIVE NEGATIVE Urine RBC (Auto) NEGATIVE NEGATIVE Urine RBC NONE /HPF Urine WBC RARE /HPF Urine Squamous Epithelial Cells 2-5 /HPF Urine Crystals NONE /LPF Urine Bacteria NEGATIVE /HPF Urine Casts NONE /LPF Urine Mucus NEGATIVE /LPF Urine Culture Indicated NO My Orders Orders - LONG,HALLEY L DO Cbc With Automated Diff (11/16/22 15:54) Comprehensive Metabolic Panel (11/16/22 15:54) Lipase (11/16/22 15:54) Magnesium (11/16/22 15:54) Ua Culture If Indicated (11/16/22 15:54) Manual Differential (11/16/22 16:00) Lactic Acid Analyzer (11/16/22 16:36) Ct Abdomen/Pelvis W (11/16/22 16:36) Ketorolac Injection (Toradol Injection) (11/16/22 16:37) Iohexol Injection (Omnipaque 350 Mg/Ml 1 (11/16/22 16:45) Received Contrast (Hold Metformin- Contr (11/16/22 16:45) Ns (Ivpb) (Sodium Chloride 0.9% Ivpb Bag (11/16/22 16:45) Straight Cath For Spec.-Adult (11/16/22 17:34) Medications Given in ED Current Medications Medications Dose Ordered Sig/Lola Route Start Time Stop Time Status Last Admin Dose Admin Iohexol 100 ml ONCE ONCE IV 11/16/22 16:45 11/16/22 16:46 DC 11/16/22 16:56 75 ML Sodium Chloride 100 ml ONCE ONCE IV 11/16/22 16:45 11/16/22 16:46 DC 11/16/22 16:56 100 ML Vital Signs/I&O 11/16/22 16:00 Temp 36.4 Pulse 67 Resp 16 B/P (MAP) 94/60 (71) Pulse Ox 100 O2 Delivery Room Air Progress Progress Note : Progress Note Patient's diagnostic studies were ordered reviewed and interpreted by me. She does have an elevated white count however no signs of any significant infection. She does have some mild discharge but does not appear to be purulent around her feeding tube with some mild erythema to her skin. It may be early cellulitis. Patient CT shows no acute infectious etiology or findings. Patient does continue to report that her symptoms started right after the change in new feed and her previous formula was soy-based and this was milk-based and has sugar and not may be a cause of her discomfort. Patient's pain completely resolved with Toradol. I will start her on Keflex due to the elevated white count and potential early infection around the stoma. She should follow with her primary care provider next week to discuss with him and a tobacco classer about changing her formula. She is stable and discharged home Diagnostic Imaging Diagonstic Imaging: CT Plain Films/CT/US/NM/MRI: abdomen, pelvis Comments ate of Exam:11/16/22 CT ABDOMEN/PELVIS W CT ABDOMEN/PELVIS W TECHNIQUE: Multiple contiguous axial images were obtained through the abdomen and pelvis after administration of intravenous contrast. All CT scans use one or more of the following dose optimizing techniques: automated exposure control, MA and/or KvP adjustment based on patient size and exam type or iterative reconstruction. INDICATION: Abdominal pain with elevated white blood cell count COMPARISON: 01/17/2022 FINDINGS: Lower chest: Stable calcified granuloma within the right middle lobe. Peritoneum: No free intraperitoneal air or fluid. Liver and biliary system: No concerning focal hepatic lesion. Moderate intrahepatic and extrahepatic biliary duct dilatation is unchanged and likely due to reservoir effect from cholecystectomy. Spleen and Pancreas: Splenectomy. Chronic pancreatic atrophy and parenchymal complications articular chronic pancreatitis. There is also mild dilation of the main pancreatic duct which is sequelae of chronic pancreatitis. Adrenals: Normal. tract: The kidneys enhance normally without suspicious mass or obstruction. Urinary bladder is distended without wall thickening. Hysterectomy. No adnexal mass. GI tract: Status post Fidelia-en-Y gastric bypass. No distention of the occluded stomach. There is a percutaneous jejunostomy tube in place with retention balloon inflated in the lumen of the central jejunal loop. There is a stool-filled bowel loop immediately adjacent to the jejunal loop with enteric tube present. No features of appendicitis. Vasculature and Lymph nodes: Normal caliber aorta. No abdominal or pelvic lymphadenopathy. Musculoskeletal: Multiple old chronic fractures of lumbar spine, some of which is undergone vertebral augmentation. Posterior instrumented fusion in the lower lumbar spine. Left proximal femoral nail for old healed intertrochanteric fracture. IMPRESSION: 1. No acute obstructive or inflammatory process. 2. Stool-filled small bowel loop in the central abdomen without abrupt transition. This is near the patient's jejunostomy and could be due to recent feeding. Reviewed: Reviewed by Me, Reviewed/Discussed Departure Impression Primary Impression: Abdominal pain Qualified Codes: R10.84 - Generalized abdominal pain Additional Impression: G tube feedings Disposition: HOME, SELF-CARE Condition: Stable Departure-Patient Inst. Referrals: POOJA GORDON MD (PCP/Family) Primary Care Physician Patient Instructions: How to Care for Your Gastrostomy Tube Add. Discharge Instructions: Please follow-up with your primary care provider and tobacco classer early next week to discuss new formulary. Tylenol ibuprofen as needed for discomfort. All discharge instructions reviewed with patient and/or family. Voiced understanding. Scripts Cephalexin (Cephalexin) 500 Mg Tablet 500 MG PO QID, #20 TAB 0 Refills Prov: HALLEY LONG DO 11/16/22 HALLEY LONG DO Nov 16, 2022 15:54
[2022-11-16 16:07] LABS: BASOPHILS # (AUTO) 0.1 10^3/uL (0.0-0.1); BASOPHILS % (AUTO) 1 % (0-10); EOSINOPHILS # (AUTO) 0.2 10^3/uL (0.0-0.3); EOSINOPHILS % (AUTO) 1 % (0-10); HEMATOCRIT 37 % (35-52); HEMOGLOBIN 11.8 g/dL (11.5-16.0); LYMPHOCYTES # (AUTO) 2.4 10^3/uL (1.0-4.0); LYMPHOCYTES % (AUTO) 13 % (12-44); MEAN CORPUSCULAR HEMOGLOBIN 33 pg (25-34); MEAN CORPUSCULAR HGB CONC 32 g/dL (32-36); MEAN CORPUSCULAR VOLUME 102 fL (80-99); MONOCYTES # (AUTO) 2.1 10^3/uL (0.0-1.0); MONOCYTES % (AUTO) 12 % (0-12); NEUTROPHILS # (AUTO) 13.1 10^3/uL (1.8-7.8); NEUTROPHILS % (AUTO) 73 % (42-75); PLATELET COUNT 379 10^3/uL (130-400); WHITE BLOOD COUNT 18.1 10^3/uL (4.3-11.0)
[2022-11-16 16:27] LABS: ALBUMIN 3.1 GM/DL (3.2-4.5); BILIRUBIN,TOTAL 0.3 MG/DL (0.1-1.0); CALCIUM 8.2 MG/DL (8.5-10.1); CREATININE SERUM 0.89 MG/DL (0.60-1.30); MAGNESIUM 2.1 MG/DL (1.6-2.4); POTASSIUM 5.7 MMOL/L (3.6-5.0); TOTAL PROTEIN 5.7 GM/DL (6.4-8.2)
[2022-11-16] MEDS ORDERED: KETOROLAC 30 MG/ML VIAL IVP STA (16:37)
[2022-11-16] MEDS ORDERED: HOLD METFORMIN - RECEIVED CONTRAST 20 ML VIAL IV SCH (16:45)
[2022-11-16] MEDS ORDERED: IOHEXOL 350 MG/ML 100 ML (OMNIPAQUE 350) VIAL IV ONE (16:45)
[2022-11-16] MEDS ORDERED: NS 100 ML (IVPB) BAG IV ONE (16:45)
[2022-11-16 17:15] LABS: LYMPHOCYTES % (MANUAL) 13 %; MONOCYTES % (MANUAL) 8 %; NEUTROPHILS % (MANUAL) 79 %
--- NOTE | 2022-11-16 17:18 | Diagnostic Imaging Report ---
CT ABDOMEN/PELVIS W TECHNIQUE: Multiple contiguous axial images were obtained through the abdomen and pelvis after administration of intravenous contrast. All CT scans use one or more of the following dose optimizing techniques: automated exposure control, MA and/or KvP adjustment based on patient size and exam type or iterative reconstruction. INDICATION: Abdominal pain with elevated white blood cell count COMPARISON: 01/17/2022 FINDINGS: Lower chest: Stable calcified granuloma within the right middle lobe. Peritoneum: No free intraperitoneal air or fluid. Liver and biliary system: No concerning focal hepatic lesion. Moderate intrahepatic and extrahepatic biliary duct dilatation is unchanged and likely due to reservoir effect from cholecystectomy. Spleen and Pancreas: Splenectomy. Chronic pancreatic atrophy and parenchymal complications articular chronic pancreatitis. There is also mild dilation of the main pancreatic duct which is sequelae of chronic pancreatitis. Adrenals: Normal. tract: The kidneys enhance normally without suspicious mass or obstruction. Urinary bladder is distended without wall thickening. Hysterectomy. No adnexal mass. GI tract: Status post Fidelia-en-Y gastric bypass. No distention of the occluded stomach. There is a percutaneous jejunostomy tube in place with retention balloon inflated in the lumen of the central jejunal loop. There is a stool-filled bowel loop immediately adjacent to the jejunal loop with enteric tube present. No features of appendicitis. Vasculature and Lymph nodes: Normal caliber aorta. No abdominal or pelvic lymphadenopathy. Musculoskeletal: Multiple old chronic fractures of lumbar spine, some of which is undergone vertebral augmentation. Posterior instrumented fusion in the lower lumbar spine. Left proximal femoral nail for old healed intertrochanteric fracture. IMPRESSION: 1. No acute obstructive or inflammatory process. 2. Stool-filled small bowel loop in the central abdomen without abrupt transition. This is near the patient's jejunostomy and could be due to recent feeding. Dictated by: Dictated on workstation # [id number]
[2022-11-16 17:37] LABS: BILIRUBIN,URINE NEGATIVE (NEGATIVE); CLARITY,URINE CLEAR; COLOR,URINE YELLOW; GLUCOSE, URINE (UA) NEGATIVE (NEGATIVE); KETONES,URINE TRACE (NEGATIVE); LEUKOCYTE ESTERASE ,URINE NEGATIVE (NEGATIVE); NITRITE,URINE NEGATIVE (NEGATIVE); PROTEIN,URINE NEGATIVE (NEGATIVE)
[2022-11-16 17:39] LABS: BACTERIA,URINE NEGATIVE /HPF; WBC,URINE RARE /HPF
[2022-11-16] MEDS ORDERED: CEPH500T PO (17:58)
[2022-11-16 18:00] VITALS: BP 105/60
== END 2022-11-16 18:01 | disposition home or self-care (01) ==
LOC: EDUNIT# 15:44 → ER FS 15:45
DX: R10.84 Generalized abdominal pain (principal); Z93.1 Gastrostomy status
CPT/HCPCS: 36415; 51701; 74177; 80053; 81000; 83605; 83690; 83735; 85007; 85027

== ENCOUNTER 2022-12-20 13:58 | Emergency (ER) | payer MEDICARE ==
[~2022-12-20 13:58] MED LIST changes: +CEPH500T PO
[2022-12-20] MEDS ORDERED: NS IV 1000 ML 1,000 ML IV SCH (14:15)
[2022-12-20] MEDS ORDERED: CEFEPIME INJECTION 1,000 MG in NS (IVPB) 50 ML IV ONE (14:15)
--- NOTE | 2022-12-20 14:34 | ED Cough/URI ---
General Chief Complaint: Respiratory Problems Stated Complaint: SOB; CHEST CONGESTION Source: patient, old records Exam Limitations: no limitations History of Present Illness Date Seen by Provider: December 20, 2022 Time Seen by Provider: 14:01 Initial Comments 72yoF with PMH of myasthenia gravis, CAD, CHF (echo from [facility] in 2021 with repor jacki EF 50%) coming in due to 3 days of sinus congestion, worsening cough over the past day, now feeling short of breath this morning. She reports her oxygen saturation was around 86% overnight, and she does not wear oxygen. She states she feels like she is losing her voice over the past 24 hours as well. She has taken all of her medications including she took her. Distigmine just prior to arrival. She had a previous blood clot remotely after surgery, is not currently anticoagulated. Also believes she might have had a fever over the past day, is unsure what her temperature was. Denies any focal weakness or numbness, vision changes, headache, severe chest pain, abdominal pain, vomiting, diarrhea, dysuria, or any other concerns. Allergies and Home Medications Allergies Coded Allergies: diphenhydramine (Verified Allergy, Intermediate, MUSCLE PAIN; AGITATION, 06/09/19) promethazine (Verified Allergy, Mild, AGITATION, 06/09/19) Patient Home Medication List Home Medication List Reviewed: Yes Abaloparatide (Tymlos) 1.56 Ml Pen.injctr, 80 MCG SC HS, (Reported) Entered as Reported by: MAY MASON on 04/17/20 1131 Acetaminophen (Tylenol Extra Strength) 500 Mg Tablet, 1,000 MG PO Q8H PRN for PAIN-MILD (1-4), (Reported) Entered as Reported by: DOLORES DYER on 01/18/22 1435 Carvedilol (Carvedilol) 3.125 Mg Tablet, 3.125 MG PO BID, (Reported) Entered as Reported by: ANGELO SETH on 06/09/19 1340 Cephalexin (Cephalexin) 500 Mg Tablet, 500 MG PO QID Prescribed by: HALLEY LONG on 11/16/22 1758 Duloxetine HCl (Duloxetine HCl) 60 Mg Capsule.dr, 60 MG PO BID, (Reported) Entered as Reported by: ANGELO SETH on 06/09/19 1340 Fentanyl (Fentanyl Patch 25 MCG) 1 Each Patch.td72, 25 MCG TD Q72H, (Reported) Entered as Reported by: MAY MASON on 04/17/20 1131 Gabapentin (Neurontin) 300 Mg Capsule, 400 MG PO QID, (Reported) Entered as Reported by: MAY MASON on 04/17/20 1131 Gabapentin (Gabapentin) 100 Mg Capsule, 100 MG PO QID, (Reported) Entered as Reported by: DOLORES DYER on 01/18/22 1426 Hydrocodone/Acetaminophen (Hydrocodone-Acetamin 5-325 mg) 5 Mg-325 Mg Tablet, 1 TAB PO Q8H PRN for PAIN-MODERATE (5-7) Prescribed by: HALLEY LONG on 02/14/222000 Levothyroxine Sodium (Levothyroxine Sodium) 100 Mcg Tablet, 100 MCG PO HS, (Reported) Entered as Reported by: DOLORES DYER on 01/18/22 1436 Lipase/Protease/Amylase (Creon Dr 24,000 Units Capsule) 1 Each Capsule.dr, 4 CAP PO TIDWM, (Reported) Entered as Reported by: ANGELO SETH on 06/09/19 1340 Omeprazole (Omeprazole) 40 Mg Capsule.dr, 40 MG PO DAILY, (Reported) Entered as Reported by: RICCI BLAIR on 07/07/15 1540 Pravastatin Sodium (Pravastatin Sodium) 10 Mg Tablet, 10 MG PO HS, (Reported) Entered as Reported by: ANGELO SETH on 06/09/19 1340 Pyridostigmine [place] (Mestinon) 60 Mg Tab, 60 MG PO TID, (Reported) Entered as Reported by: RICCI BLAIR on 07/07/15 1445 Ropinirole HCl (Ropinirole HCl) 0.5 Mg Tablet, 0.5 MG PO HS, (Reported) Entered as Reported by: RICCI BLAIR on 07/07/15 1540 Sulfamethoxazole/Trimethoprim (Bactrim Ds Tablet) 800 Mg-160 Mg Tablet, 1 EACH PO BID, (Reported) Entered as Reported by: DOLORES DYER on 01/18/22 1422 Temazepam (Temazepam) 30 Mg Capsule, 30 MG PO HS PRN for SLEEP, (Reported) Entered as Reported by: ANGELO SETH on 06/09/19 1340 Trazodone HCl (Trazodone HCl) 50 Mg Tablet, 50 MG PO 1999, (Reported) Entered as Reported by: DOLORES DYER on 01/18/22 1426 Review of Systems Review of Systems Constitutional: fever EENTM: nose congestion Respiratory: cough, short of breath Cardiovascular: No chest pain Gastrointestinal: no symptoms reported Genitourinary: no symptoms reported Musculoskeletal: no symptoms reported Skin: no symptoms reported Psychiatric/Neurological: See HPI Hematologic/Lymphatic: No Symptoms Reported Past [id number]-Pclmkp-[id number] Hx Patient Social History Tobacco Use?: No Immunizations Up To Date First/Initial COVID19 Vaccinat: 10/10/20 Second COVID19 Vaccination Miki: 11/07/20 Third COVID19 Vaccination Date: 07/30/21 Seasonal Allergies Seasonal Allergies: No Past Medical History Surgery/Hospitalization HX: hospice for mystenia gravis; g-tube; osteoporosis; malabsorption/malnutrition. Surgeries: Yes (ORIF left hip, right shoulder sx, cholecystectomy, spleenectomy) Gallbladder, Orthopedic Respiratory: Yes Pneumonia Currently Using CPAP: No Currently Using BIPAP: No Cardiac: Yes Neurological: Yes (MYASTHENIA GRAVIS) Reproductive Disorders: No Female Reproductive Disorders: Denies Sexually Transmitted Disease: No HIV/AIDS: No Genitourinary: No Gastrointestinal: Yes (GASTRITIS, MALNUTRITION, GASTRIC BYPASS, STOMACH STAPLING) Pancreatitis, Chronic Diarrhea Musculoskeletal: Yes (Kyphoplasty vertebrae of compression fx) Osteoporosis, Fractures Endocrine: No HEENT: Yes Tonsilitis Loss of Vision: Denies Hearing Impairment: Denies Cancer: No Psychosocial: Yes Anxiety Integumentary: No Blood Disorders: No Adverse Reaction/Blood Tranf: No Family Medical History Diabetes mellitus 19 MOTHER FH: lung cancer 19 FATHER Cancer, Diabetes Physical Exam Vital Signs - First Documented Capillary Refill : Height: 5'5.00" Weight: 113lbs. 0oz. 51.280100wy; 17.00 BMI Method:Stated General Appearance: no apparent distress, thin, other (Chronically ill-appe aring) Eyes: Bilateral Eye Normal Inspection, Bilateral Eye PERRL, Bilateral Eye EOMI HEENT: PERRL/EOMI, normal ENT inspection, pharynx normal Neck: non-tender, full range of motion, supple, normal inspection Respiratory: chest non-tender, no respiratory distress, no accessory muscle use, crackles Cardiovascular: regular rate, rhythm, no edema Gastrointestinal: normal bowel sounds, non tender, soft; No distended, No guarding, No rebound; other (J-tube in place with the skin around it appearing clean, dry, and) Genital/Rectal: other (Brown stool) Extremities: normal range of motion, non-tender, normal inspection, no pedal edema, no calf tenderness, normal capillary refill Neurologic/Psychiatric: fingerer II-XII nml as tested, no motor/sensory deficits, alert, normal mood/affect, oriented x 3 Skin: normal color, warm/dry Focused Exam Sepsis Stage: Septic Shock Possible Source: Unknown Lactate Level 12/20/22 14:22: Lactic Acid Level 2.31*H Time of Focused Exam: 15:00 Respiratory: Chest Non Tender, No Accessory Muscle Use, Rales Cardiovascular: Regular Rate, Rhythm, No Edema, Normal Peripheral Pulses Capillary Refill: Less Than 3 Seconds Peripheral Pulses: 2+ Radial Pulses (R), 2+ Radial Pulses (L) Skin: normal color, warm/dry Lactic Acid Level Laboratory Tests Test 12/20/22 14:22 Lactic Acid Level 2.31 MMOL/L (0.50-2.00) *H Within 3hrs of presentation: Admin fluids, Admin ABX, Blood cultures prior to ABX's, Focus exam, Lactate level, Other (gave over 20cc/kg of IVF, did not want to give much more due to heart failure) Procedures/Interventions Date of ETT Placement: December 20, 2022 Intubation Method: orotracheal Tube Size: 7.5 Medications: Rocuronium (and ketamine) Positive End Tide CO2: Yes Breath Sounds after Intubation: bilateral-equal Intubation Complications: no complications Post Intubation Xray: Yes advanced ETT to 22cm at the lip from 21cm Patient tolerated the procedure well Progress/Results/Core Measures Suspected Sepsis SIRS Temperature: Pulse: Respiratory Rate: Laboratory Tests 12/20/22 14:22: White Blood Count 32.6*H Blood Pressure / Mean: 12/20/22 14:22: Lactic Acid Level 2.31*H Laboratory Tests 12/20/22 14:22: Creatinine 1.35H, INR Comment 1.0, Platelet Count 307, Total Bilirubin 0.5 Results/Orders Lab Results Laboratory Tests Test 12/20/22 14:22 12/20/22 14:26 12/20/22 14:40 Range/Units White Blood Count 32.6 *H 4.3-11.0 10^3/uL Red Blood Count 3.77 L 3.80-5.11 10^6/uL Hemoglobin 12.3 11.5-16.0 g/dL Hematocrit 38 35-52 % Mean Corpuscular Volume 101 H 80-99 fL Mean Corpuscular Hemoglobin 33 25-34 pg Mean Corpuscular Hemoglobin Concent 32 32-36 g/dL Red Cell Distribution Width 14.2 10.0-14.5 % Platelet Count 307 130-400 10^3/uL Mean Platelet Volume 10.3 9.0-12.2 fL Immature Granulocyte % (Auto) 1 % Neutrophils (%) (Auto) 89 H 42-75 % Lymphocytes (%) (Auto) 5 L 12-44 % Monocytes (%) (Auto) 5 0-12 % Eosinophils (%) (Auto) 0 0-10 % Basophils (%) (Auto) 0 0-10 % Neutrophils # (Auto) 28.9 H 1.8-7.8 10^3/uL Lymphocytes # (Auto) 1.6 1.0-4.0 10^3/uL Monocytes # (Auto) 1.7 H 0.0-1.0 10^3/uL Eosinophils # (Auto) 0.1 0.0-0.3 10^3/uL Basophils # (Auto) 0.1 0.0-0.1 10^3/uL Immature Granulocyte # (Auto) 0.2 H 0.0-0.1 10^3/uL Neutrophils % (Manual) 56 % Lymphocytes % (Manual) 7 % Monocytes % (Manual) 6 % Eosinophils % (Manual) 0 % Basophils % (Manual) 1 % Band Neutrophils 30 % Prothrombin Time 13.7 12.2-14.7 SEC INR Comment 1.0 0.8-1.4 Activated Partial Thromboplast Time 29 24-35 SEC D-Dimer 1.64 H 0.00-0.49 UG/ML Sodium Level 137 135-145 MMOL/L Potassium Level 4.6 3.6-5.0 MMOL/L Chloride Level 103 98-107 MMOL/L Carbon Dioxide Level 21 21-32 MMOL/L Anion Gap 13 5-14 MMOL/L Blood Urea Nitrogen 42 H 7-18 MG/DL Creatinine 1.35 H 0.60-1.30 MG/DL Estimat Glomerular Filtration Rate 41 BUN/Creatinine Ratio 31 Glucose Level 134 H 70-105 MG/DL Lactic Acid Level 2.31 *H 0.50-2.00 MMOL/L Calcium Level 8.1 L 8.5-10.1 MG/DL Corrected Calcium 8.7 8.5-10.1 MG/DL Total Bilirubin 0.5 0.1-1.0 MG/DL Aspartate Amino Transf (AST/SGOT) 35 H 5-34 U/L Alanine Aminotransferase (ALT/SGPT) 28 0-55 U/L Alkaline Phosphatase 105 40-136 U/L Troponin I < 0.30 <0.30 NG/ML C-Reactive Protein 8.20 H <0.50 MG/DL Pro-B-Type Natriuretic Peptide 6119.0 H <125.0 PG/ML Total Protein 5.9 L 6.4-8.2 GM/DL Albumin 3.2 3.2-4.5 GM/DL Influenza Type A (RT-PCR) Not Detected Not Detecte Influenza Type B (RT-PCR) Not Detected Not Detecte SARS-CoV-2 RNA (RT-PCR) Not Detected Not Detecte Urine Color YELLOW Urine Clarity SL CLOUDY Urine pH 5.0 5-9 Urine Specific [place] 1.025 H 1.016-1.022 Urine Protein NEGATIVE NEGATIVE Urine Glucose (UA) NEGATIVE NEGATIVE Urine Ketones TRACE H NEGATIVE Urine Nitrite NEGATIVE NEGATIVE Urine Bilirubin NEGATIVE NEGATIVE Urine Urobilinogen 0.2 < = 1.0 MG/DL Urine Leukocyte Esterase TRACE H NEGATIVE Urine RBC (Auto) NEGATIVE NEGATIVE Urine RBC NONE /HPF Urine WBC 2-5 /HPF Urine Squamous Epithelial Cells 2-5 /HPF Urine Crystals NONE /LPF Urine Bacteria FEW H /HPF Urine Casts NONE /LPF Urine Mucus NEGATIVE /LPF Urine Culture Indicated YES My Orders Orders - BART NORMAN MD Cbc With Automated Diff (12/20/22 14:11) Comprehensive Metabolic Panel (12/20/22 14:11) Blood Culture (12/20/22 14:11) Sputum Culture (12/20/22 14:11) Urinalysis (12/20/22 14:11) Protime With Inr (12/20/22 14:11) Partial Thromboplastin Time (12/20/22 14:11) Chest 1 View Ap/Pa Only (12/20/22 14:11) Ed Iv/Invasive Line Start (12/20/22 14:11) Ed Iv/Invasive Line Start (12/20/22 14:11) Ekg Tracing (12/20/22 14:11) Vital Signs Adult Sepsis Patie Q15M (12/20/22 14:11) O2 (12/20/22 14:11) Remove Rings In Anticipation O (12/20/22 14:11) Lactic Acid Analyzer (12/20/22 14:11) Influenza A And B By Pcr (12/20/22 14:11) Ns Iv 1000 Ml (Sodium Chloride 0.9%) (12/20/22 14:15) Cefepime Injection (Maxipime Injection) (12/20/22 14:15) Covid 19 Inhouse Test (12/20/22 14:11) Fibrin Degradation Products (12/20/22 14:11) Probnp Fs (12/20/22 14:11) Crp Fs (12/20/22 14:11) Troponin I Fs (12/20/22 14:11) Manual Differential (12/20/22 14:22) Urine Culture (12/20/22 14:40) Enoxaparin Injection (Lovenox Injection) (12/20/22 15:15) Villanueva Cath (12/20/22 14:40) Norepinephrine 8 Mg/250 Ml (Norepinephri (12/20/22 15:34) Ns Iv 1000 Ml (Sodium Chloride 0.9%) (12/20/22 16:18) Chest 1 View Ap/Pa Only (12/20/22 16:28) Medications Given in ED Current Medications Medications Dose Ordered Sig/Lola Route Start Time Stop Time Status Last Admin Dose Admin Cefepime HCl 1000 mg/Sodium Chloride 50 ml @ 100 mls/hr ONCE ONCE IV 12/20/22 14:15 12/20/22 14:44 DC 12/20/22 14:31 100 MLS/HR Enoxaparin Sodium 45 mg ONCE ONCE SC 12/20/22 15:15 12/20/22 15:16 DC 12/20/22 15:31 45 MG Vital Signs/I&O 12/20/22 12/20/22 12/20/22 12/20/22 14:05 14:05 16:05 17:25 Temp 36.5 36.5 Pulse 84 78 94 Resp 20 18 B/P (MAP) 77/41 (53) 94/41 110/50 Pulse Ox 93 93 100 O2 Delivery Nasal Cannula Nasal Cannula Mechanical Ventilator O2 Flow Rate 2.00 2.00 Capillary Refill : Progress Note : Progress Note 72-year-old female with above history coming in cough, shortness of breath, low blood pressure. The patient's blood pressure was 70s over 30s on arrival, heart rate in the 70s, 84% on room air. She was placed on 2 L nasal cannula with improvement to the mid 90s, an IV was placed, and she was given a 1 L bolus of IV fluids. Given she is only 45 kg, this is more than 20/kg of IV fluids for her, blood pressure came up to 94/41 with a MAP of 54. Her blood pressure typically is on the lower end when I go back to the history, typically is in the higher 90s to low 100s systolic, but typically has a better diastolic blood pressure. Basic labs significant for elevated white blood cell count just under 33,000, elevated CRP, slightly elevated creatinine around 1.3, negative troponin, lactic acid slightly elevated at 2.3. Chest x-ray ordered and interpreted by me showing no obvious focal pneumonia. She was given cefepime on arrival. Her D-dimer is also elevated, given her history and the mild MERLINE, we will opt to just treat her with Lovenox 45 mg which is 1 mg/kg. EKG ordered and interpreted by me showing sinus rhythm with no acute ischemic changes. I contacted our hospitalist to discuss ICU placement, they prefer going to a hospital with a neurologist as well as potential for IVIG. I contacted since her care is there, and Dr. Monsivais accepted her to the ICU for transfer. We then contacted a helicopter for transport. The patient started feeling like she was getting weaker, I am concerned for impending respiratory compromise from myasthenic crisis, we opted to intubate her with half dose of rocuronium as well as with ketamine. Bilateral 18-gauge ultrasound-guided IVs were placed for norepinephrine. At that point, the helicopter arrived for transport, did not want to delay transport for potential central line given she had good access at this time. We will forego central line placement to if they would like to place it. ECG Initial ECG Impression Date: December 20, 2022 Initial ECG Impression Time: 14:47 Initial ECG Rate: 74 Initial ECG Rhythm: Normal Sinus Comment Narrow QRS, normal axis, no significant ST changes or T wave abnormalities Diagnostic Imaging Diagonstic Imaging: Xray (chest) Comments NAME: JACK CARDONA [facility] REC#: [id number] PT STATUS: REG ER : 1950 PHYSICIAN: BART NORMAN MD ADMIT DATE: 12/20/22/ER FS Draft Date of Exam:12/20/22 CHEST 1 VIEW AP/PA ONLY EXAMINATION: Chest 1 view HISTORY: SOB COMPARISON: 10/13/2022 FINDINGS: Heart size and pulmonary vasculature are normal. Stable prominence of the infrahilar right medial lower lung. No other consolidation, pleural effusion, or pneumothorax. Multilevel thoracic compression fractures status post vertebral augmentation. Surgical changes from right humerus ORIF. IMPRESSION: 1. No acute radiographic abnormality in the chest. Dictated on workstation # [id number] Dict: 12/20/22 1429 Trans: 12/20/22 1431 [facility] [id number] Interpreted by: EVITA HOOK DO Electronically signed by: Critical Care Note Critical Care Start Time: 14:01 Stop Time: 16:43 Total Time (minutes) 63 Progress Patient was in septic shock and respiratory failure at significant risk for hemodynamic and respiratory compromise. She required frequent reassessments at the bedside and conversations with family and other physicians. All time billed for critical care was separate from procedures Departure Impression Primary Impression: Septic shock Additional Impressions: Respiratory failure Qualified Codes: J96.01 - Acute respiratory failure with hypoxia Myasthenic crisis Disposition: XFER SHT-TRM HOSP Condition: Stable Admissions Decision to Admit/Date: December 20, 2022 Time/Decision to Admit Time: 15:20 Transfer Transfer Reason: Exceeds level of care (needs neuro and potential for IVIG) Time Spoke to Accepting Phy: 15:47 Transfer Progress Notes Accepted by Dr. Braden Monsivais to [facility] Transfer Facility: [facility] Method of Transfer: Air Departure-Patient Inst. Referrals: POOJA GORDON MD (PCP) Primary Care Physician BART NORMAN MD December 20, 2022 14:34
[2022-12-20 14:36] LABS: BASOPHILS # (AUTO) 0.1 10^3/uL (0.0-0.1); BASOPHILS % (AUTO) 0 % (0-10); EOSINOPHILS # (AUTO) 0.1 10^3/uL (0.0-0.3); EOSINOPHILS % (AUTO) 0 % (0-10); HEMATOCRIT 38 % (35-52); HEMOGLOBIN 12.3 g/dL (11.5-16.0); LYMPHOCYTES # (AUTO) 1.6 10^3/uL (1.0-4.0); LYMPHOCYTES % (AUTO) 5 % (12-44); MEAN CORPUSCULAR HEMOGLOBIN 33 pg (25-34); MEAN CORPUSCULAR HGB CONC 32 g/dL (32-36); MEAN CORPUSCULAR VOLUME 101 fL (80-99); MEAN PLATELET VOLUME 10.3 fL (9.0-12.2); MONOCYTES # (AUTO) 1.7 10^3/uL (0.0-1.0); MONOCYTES % (AUTO) 5 % (0-12); NEUTROPHILS # (AUTO) 28.9 10^3/uL (1.8-7.8); NEUTROPHILS % (AUTO) 89 % (42-75); PLATELET COUNT 307 10^3/uL (130-400)
[2022-12-20 14:47] LABS: WHITE BLOOD COUNT 32.6 10^3/uL (4.3-11.0)
[2022-12-20 14:52] LABS: BILIRUBIN,URINE NEGATIVE (NEGATIVE); CLARITY,URINE SL CLOUDY; COLOR,URINE YELLOW; GLUCOSE, URINE (UA) NEGATIVE (NEGATIVE); KETONES,URINE TRACE (NEGATIVE); LEUKOCYTE ESTERASE ,URINE TRACE (NEGATIVE); NITRITE,URINE NEGATIVE (NEGATIVE); PROTEIN,URINE NEGATIVE (NEGATIVE)
[2022-12-20 15:01] LABS: BACTERIA,URINE FEW /HPF
[2022-12-20 15:04] LABS: BILIRUBIN,TOTAL 0.5 MG/DL (0.1-1.0); BUN/CREATININE RATIO 31; CALCIUM 8.1 MG/DL (8.5-10.1); CARBON DIOXIDE 21 MMOL/L (21-32); CHLORIDE 103 MMOL/L (98-107); CREATININE SERUM 1.35 MG/DL (0.60-1.30); GFR ESTIMATED 41; GLUCOSE 134 MG/DL (70-105); POTASSIUM 4.6 MMOL/L (3.6-5.0); PROTHROMBIN TIME PATIENT 13.7 SEC (12.2-14.7); SODIUM 137 MMOL/L (135-145)
[2022-12-20 15:05] LABS: ALANINE AMINOTRANSFERASE 28 U/L (0-55); ALBUMIN 3.2 GM/DL (3.2-4.5); ALKALINE PHOSPHATASE 105 U/L (40-136); FIBRIN DEGRADATION PRODUCTS 1.64 UG/ML (0.00-0.49); TOTAL PROTEIN 5.9 GM/DL (6.4-8.2)
[2022-12-20 15:11] LABS: BAND NEUTROPHILS 30 %; BASOPHILS % (MANUAL) 1 %; EOSINOPHILS % (MANUAL) 0 %; LYMPHOCYTES % (MANUAL) 7 %; MONOCYTES % (MANUAL) 6 %; NEUTROPHILS % (MANUAL) 56 %
[2022-12-20] MEDS ORDERED: ENOXAPARIN 60 MG/0.6 ML (LOVENOX) SYR SC ONE (15:15)
[2022-12-20] MEDS ORDERED: NOREPINEPHRINE 8 MG/250 ML 250 ML IV STA (15:34)
[2022-12-20] MEDS ORDERED: NS IV 1000 ML 1,000 ML ONE (16:18)
--- NOTE | 2022-12-20 16:43 | Diagnostic Imaging Report ---
EXAMINATION: Chest, one view. HISTORY: Post intubation. COMPARISON: 12/20/2022. FINDINGS: Heart size and pulmonary vasculature are normal. The lungs are clear without consolidation, pleural effusion, or pneumothorax. The osseous structures are intact. Interval placement of an endotracheal tube, approximately 4 cm above the jenny. Stable surgical changes of the right humerus. IMPRESSION: 1. Endotracheal tube placement, 4 cm above the jenny. Otherwise, stable chest radiograph. Dictated by: Dictated on workstation # [id number]
[2022-12-20 17:25] VITALS: BP 110/50
== END 2022-12-20 17:25 | disposition short-term general hospital (02) ==
LOC: EDUNIT# 13:58 → ER FS 14:00
DX: A41.9 Sepsis, unspecified organism (principal); R65.21 Severe sepsis with septic shock; J96.90 Respiratory failure, unspecified, unspecified whether with hypoxia or hypercapnia; G70.01 Myasthenia gravis with (acute) exacerbation; Z20.822 Contact with and (suspected) exposure to COVID-19; Z99.81 Dependence on supplemental oxygen
CPT/HCPCS: 31500; 36415; 51702; 71045; 80053; 81000; 83605; 83880; 84484; 85007; 85027; 85379; 85610; 85730; 86141; 87040; 87088; 87636; 93005; 99291

== ENCOUNTER 2023-02-27 11:01 | Emergency (ER) | payer MEDICARE ==
--- NOTE | 2023-02-27 11:11 | ED Abdominal Pain ---
General Stated Complaint: ABD PAIN History of Present Illness Date Seen by Provider: Feb 27, 2023 Time Seen by Provider: 11:06 Initial Comments 69-year-old female with PMH of myasthenia gravis/chronic pain/feeding tube placement for malnourishment, is brought in by EMS with complaints of generalized abdominal pain which began today morning. Denies diarrhea, nausea and vomiting. EMS gave patient fentanyl for pain. Patient at baseline is partially bedbound. Denies fever and chills, diarrhea, constipation, vomiting, chest pain, shortness of breath. No known sick contacts. Allergies and Home Medications Allergies Coded Allergies: diphenhydramine (Verified Allergy, Intermediate, MUSCLE PAIN; AGITATION, 06/09/19) promethazine (Verified Allergy, Mild, AGITATION, 06/09/19) Patient Home Medication List Home Medication List Reviewed: Yes Abaloparatide (Tymlos) 1.56 Ml Pen.injctr, 80 MCG SC HS, (Reported) Entered as Reported by: MAY MASON on 04/17/20 1131 Acetaminophen (Tylenol Extra Strength) 500 Mg Tablet, 1,000 MG PO Q8H PRN for PAIN-MILD (1-4), (Reported) Entered as Reported by: DOLORES DYER on 01/18/22 1435 Carvedilol (Carvedilol) 3.125 Mg Tablet, 3.125 MG PO BID, (Reported) Entered as Reported by: ANGELO SETH on 06/09/19 1340 Cephalexin (Cephalexin) 500 Mg Tablet, 500 MG PO QID Prescribed by: HALLEY LONG on 11/16/22 1758 Duloxetine HCl (Duloxetine HCl) 60 Mg Capsule.dr, 60 MG PO BID, (Reported) Entered as Reported by: ANGELO SETH on 06/09/19 1340 Fentanyl (Fentanyl Patch 25 MCG) 1 Each Patch.td72, 25 MCG TD Q72H, (Reported) Entered as Reported by: MAY MASON on 04/17/20 1131 Gabapentin (Neurontin) 300 Mg Capsule, 400 MG PO QID, (Reported) Entered as Reported by: MAY MASON on 04/17/20 1131 Gabapentin (Gabapentin) 100 Mg Capsule, 100 MG PO QID, (Reported) Entered as Reported by: DOLORES DYER on 01/18/22 1426 Hydrocodone/Acetaminophen (Hydrocodone-Acetamin 5-325 mg) 5 Mg-325 Mg Tablet, 1 TAB PO Q8H PRN for PAIN-MODERATE (5-7) Prescribed by: HALLEY LONG on 02/14/222000 Lactulose (Lactulose) 10 Gram/15 Ml (15 Ml) Solution, 10 GM PO DAILY Prescribed by: JUAN CLARK MD on 02/27/23 1320 Levothyroxine Sodium (Levothyroxine Sodium) 100 Mcg Tablet, 100 MCG PO HS, (Reported) Entered as Reported by: DOLORES DYER on 01/18/22 1436 Lipase/Protease/Amylase (Creon Dr 24,000 Units Capsule) 1 Each Capsule., 4 CAP PO TIDWM, (Reported) Entered as Reported by: ANGELO SETH on 06/09/19 1340 Na Phos,M-B/Na Phos,Di-Ba (Enema Ready To Use) 19 Gram-7 Gram/118 Ml Enema, 133 ML RC ONCE Prescribed by: JUAN CLARK MD on 02/27/23 1320 Omeprazole (Omeprazole) 40 Mg Capsule., 40 MG PO DAILY, (Reported) Entered as Reported by: RICCI BLAIR on 07/07/15 1540 Pravastatin Sodium (Pravastatin Sodium) 10 Mg Tablet, 10 MG PO HS, (Reported) Entered as Reported by: ANGELO SETH on 06/09/19 1340 Pyridostigmine [place] (Mestinon) 60 Mg Tab, 60 MG PO TID, (Reported) Entered as Reported by: RICCI BLAIR on 07/07/15 1445 Ropinirole HCl (Ropinirole HCl) 0.5 Mg Tablet, 0.5 MG PO HS, (Reported) Entered as Reported by: RICCI BLAIR on 07/07/15 1540 Sennosides/Docusate Sodium (Senna-Docusate Sodium Tablet) 8.6 Mg-50 Mg Tablet, 1 EACH PO BID Prescribed by: JUAN CLARK MD on 02/27/23 1320 Sulfamethoxazole/Trimethoprim (Bactrim Ds Tablet) 800 Mg-160 Mg Tablet, 1 EACH PO BID, (Reported) Entered as Reported by: DOLORES DYER on 01/18/22 1422 Temazepam (Temazepam) 30 Mg Capsule, 30 MG PO HS PRN for SLEEP, (Reported) Entered as Reported by: ANGELO SETH on 06/09/19 1340 Trazodone HCl (Trazodone HCl) 50 Mg Tablet, 50 MG PO 1999, (Reported) Entered as Reported by: DOLORES DYER on 01/18/22 1426 Review of Systems Review of Systems Constitutional: no symptoms reported, malaise EENTM: No Symptoms Reported Respiratory: No Symptoms Reported Cardiovascular: No Symptoms Reported Gastrointestinal: Abdominal Pain Genitourinary: No Symptoms Reported Musculoskeletal: no symptoms reported Skin: no symptoms reported Psychiatric/Neurological: No Symptoms Reported Endocrine: No Symptoms Reported Hematologic/Lymphatic: No Symptoms Reported Past Bpvvwat-Vljklj-Qscxsy Hx Immunizations Up To Date First/Initial COVID19 Vaccinat: 10/10/20 Second COVID19 Vaccination Miki: 11/07/20 Third COVID19 Vaccination Date: 07/30/21 Seasonal Allergies Seasonal Allergies: No Past Medical History Surgery/Hospitalization HX: mystenia gravis; g-tube; osteoporosis; malabsorption/malnutrition. Surgeries: Yes (ORIF left hip, right shoulder sx, cholecystectomy, spleenectomy) Gallbladder, Orthopedic Respiratory: Yes Pneumonia Currently Using CPAP: No Currently Using BIPAP: No Cardiac: Yes Neurological: Yes (MYASTHENIA GRAVIS) Reproductive Disorders: No Female Reproductive Disorders: Denies Sexually Transmitted Disease: No HIV/AIDS: No Genitourinary: No Gastrointestinal: Yes (GASTRITIS, MALNUTRITION, GASTRIC BYPASS, STOMACH STAPLING) Pancreatitis, Chronic Diarrhea Musculoskeletal: Yes (Kyphoplasty vertebrae of compression fx) Osteoporosis, Fractures Endocrine: No HEENT: Yes Tonsilitis Loss of Vision: Denies Hearing Impairment: Denies Cancer: No Psychosocial: Yes Anxiety Integumentary: No Blood Disorders: No Adverse Reaction/Blood Tranf: No Family Medical History Diabetes mellitus 19 MOTHER FH: lung cancer 19 FATHER Cancer, Diabetes Physical Exam Vital Signs Vital Signs - First Documented 02/27/23 11:07 Temp 35.8 Pulse 116 Resp 18 B/P (MAP) 128/77 (94) Pulse Ox 94 O2 Delivery Room Air Capillary Refill : Height/Weight/BMI Height: 5'5.00" Weight: 113lbs. 0oz. 51.215409ru; 17.00 BMI Method:Stated General Appearance: WD/WN, mild distress HEENT: PERRL/EOMI, normal ENT inspection, other (Dry mucous membranes and dry tongue) Neck: non-tender, full range of motion Respiratory: chest non-tender, lungs clear, normal breath sounds Cardiovascular: normal peripheral pulses, regular rate, rhythm Gastrointestinal: normal bowel sounds, soft, no organomegaly, tenderness (Generalized tenderness on palpation), other (Feeding tube present) Back: no CVA tenderness Neurologic/Psychiatric: alert, normal mood/affect, oriented x 3 Focused Exam Lactate Level 02/27/23 11:00: Lactic Acid Level 2.09*H 02/27/23 13:14: Lactic Acid Level Laboratory Tests Test 02/27/23 11:00 02/27/23 13:14 Lactic Acid Level 2.09 MMOL/L (0.50-2.00) *H Procedures/Interventions Date of ETT Placement: December 20, 2022 Time of ETT Placement: 4 Progress/Results/Core Measures Results/Orders Lab Results Laboratory Tests Test 02/27/23 11:00 02/27/23 12:45 02/27/23 13:14 Range/Units White Blood Count 9.1 4.3-11.0 10^3/uL Red Blood Count 4.29 3.80-5.11 10^6/uL Hemoglobin 13.5 11.5-16.0 g/dL Hematocrit 43 35-52 % Mean Corpuscular Volume 99 80-99 fL Mean Corpuscular Hemoglobin 32 25-34 pg Mean Corpuscular Hemoglobin Concent 32 32-36 g/dL Red Cell Distribution Width 14.2 10.0-14.5 % Platelet Count 451 H 130-400 10^3/uL Mean Platelet Volume 9.5 9.0-12.2 fL Immature Granulocyte % (Auto) 0 % Neutrophils (%) (Auto) 55 42-75 % Lymphocytes (%) (Auto) 34 12-44 % Monocytes (%) (Auto) 8 0-12 % Eosinophils (%) (Auto) 1 0-10 % Basophils (%) (Auto) 1 0-10 % Neutrophils # (Auto) 5.0 1.8-7.8 10^3/uL Lymphocytes # (Auto) 3.1 1.0-4.0 10^3/uL Monocytes # (Auto) 0.7 0.0-1.0 10^3/uL Eosinophils # (Auto) 0.1 0.0-0.3 10^3/uL Basophils # (Auto) 0.1 0.0-0.1 10^3/uL Immature Granulocyte # (Auto) 0.0 0.0-0.1 10^3/uL Prothrombin Time 12.2 12.2-14.7 SEC INR Comment 0.9 0.8-1.4 Activated Partial Thromboplast Time 24 24-35 SEC Sodium Level 138 135-145 MMOL/L Potassium Level 5.3 H 3.6-5.0 MMOL/L Chloride Level 106 98-107 MMOL/L Carbon Dioxide Level 20 L 21-32 MMOL/L Anion Gap 12 5-14 MMOL/L Blood Urea Nitrogen 28 H 7-18 MG/DL Creatinine 1.11 0.60-1.30 MG/DL Estimat Glomerular Filtration Rate 52 BUN/Creatinine Ratio 25 Glucose Level 121 H 70-105 MG/DL Lactic Acid Level 2.09 *H 0.50-2.00 MMOL/L Calcium Level 8.1 L 8.5-10.1 MG/DL Corrected Calcium 8.9 8.5-10.1 MG/DL Magnesium Level 2.7 H 1.6-2.4 MG/DL Total Bilirubin < 0.2 0.1-1.0 MG/DL Aspartate Amino Transf (AST/SGOT) 23 5-34 U/L Alanine Aminotransferase (ALT/SGPT) 14 0-55 U/L Alkaline Phosphatase 122 40-136 U/L Troponin I < 0.30 <0.30 NG/ML Total Protein 6.1 L 6.4-8.2 GM/DL Albumin 3.0 L 3.2-4.5 GM/DL Lipase 6 L 8-78 U/L Urine Color YELLOW Urine Clarity CLEAR Urine pH 5.5 5-9 Urine Specific Moran 1.020 1.016-1.022 Urine Protein NEGATIVE NEGATIVE Urine Glucose (UA) NEGATIVE NEGATIVE Urine Ketones NEGATIVE NEGATIVE Urine Nitrite NEGATIVE NEGATIVE Urine Bilirubin NEGATIVE NEGATIVE Urine Urobilinogen 0.2 < = 1.0 MG/DL Urine Leukocyte Esterase NEGATIVE NEGATIVE Urine RBC (Auto) NEGATIVE NEGATIVE Urine RBC NONE /HPF Urine WBC NONE /HPF Urine Squamous Epithelial Cells 2-5 /HPF Urine Crystals NONE /LPF Urine Bacteria NEGATIVE /HPF Urine Casts NONE /LPF Urine Mucus NEGATIVE /LPF Urine Culture Indicated NO Urine Opiates Screen NEGATIVE NEGATIVE Urine Oxycodone Screen NEGATIVE NEGATIVE Urine Methadone Screen NEGATIVE NEGATIVE Urine Propoxyphene Screen NEGATIVE NEGATIVE Urine Barbiturates Screen NEGATIVE NEGATIVE Ur Tricyclic Antidepressants Screen NEGATIVE NEGATIVE Urine Phencyclidine Screen NEGATIVE NEGATIVE Urine Amphetamines Screen NEGATIVE NEGATIVE Urine Methamphetamines Screen NEGATIVE NEGATIVE Urine Benzodiazepines Screen NEGATIVE NEGATIVE Urine Cocaine Screen NEGATIVE NEGATIVE Urine Cannabinoids Screen NEGATIVE NEGATIVE My Orders Orders - JUAN CLARK MD Cbc With Automated Diff (02/27/23 11:11) Comprehensive Metabolic Panel (02/27/23 11:11) Drug Screen Stat (Urine) (02/27/23 11:11) Lactic Acid Analyzer (02/27/23 11:11) Lipase (02/27/23 11:11) Magnesium (02/27/23 11:11) Protime With Inr (02/27/23 11:11) Partial Thromboplastin Time (02/27/23 11:11) Ua Culture If Indicated (02/27/23 11:11) Troponin I Fs (02/27/23 11:11) Ct Abdomen/Pelvis W (02/27/23 11:12) Iohexol Injection (Omnipaque 350 Mg/Ml 1 (02/27/23 12:15) Received Contrast (Hold Metformin- Contr (02/27/23 12:15) Ns (Ivpb) (Sodium Chloride 0.9% Ivpb Bag (02/27/23 12:15) Ed Iv/Invasive Line Start (02/27/23 12:04) Ns Iv 1000 Ml (Sodium Chloride 0.9%) (02/27/23 12:15) Na Phos/Na Biphos Enema (Fleet Enema [place] (02/27/23 13:00) Medications Given in ED Current Medications Medications Dose Ordered Sig/Lola Route Start Time Stop Time Status Last Admin Dose Admin Iohexol 100 ml ONCE ONCE IV 02/27/23 12:15 02/27/23 12:16 DC 02/27/23 12:23 75 ML Sodium Chloride 100 ml ONCE ONCE IV 02/27/23 12:15 02/27/23 12:16 DC 02/27/23 12:23 100 ML Vital Signs/I&O 02/27/23 11:07 Temp 35.8 Pulse 116 Resp 18 B/P (MAP) 128/77 (94) Pulse Ox 94 O2 Delivery Room Air Progress Progress Note : Progress Note 1. ABDOMINAL PAIN: CONSTIPATION - CT ABD: Large volume of stool throughout the colon, suggestive of constipation. No evidence of small bowel obstruction. No free fluid or free air. - CBC: normal - Lactic acid: borderline elevated at 2.09, pt received one bag of fluids - CMP/ Lipase - UA/UDS: negative - Pt was given 50mcg of Fentanyl by EMS - Prescriptions given for senna/Colace, lactulose, Fleet enema -Advised high-fiber diet and adequate hydration -Follow-up with PCP within the next 3 days -All acute causes of abdominal pain ruled at with a full lab and imaging work-up -The patient was seen in the ED, and treated appropriately to presentation at a specific point in time. Patient is informed that there is a possibility that disease and illness can evolve and change in acuity rapidly or slowly after patient is discharged from the ER. Precautionary advice given to the patient for immediate return to ER if symptoms worsen or do not resolve, and to seek emergency care sooner rather than later. Pt also advised on the importance of PCP follow up and compliance with management and follow up plan with PCP and/or specialist, as this is part of the management plan. Pt verbally expressed understanding. Diagnostic Imaging Diagonstic Imaging: CT Plain Films/CT/US/NM/MRI: abdomen Comments NAME: JACK CARDONA [facility] REC#: [id number] PT STATUS: REG ER : 1950 PHYSICIAN: JUAN CLARK MD ADMIT DATE: 02/27/23/ER FS Draft Date of Exam:02/27/23 CT ABDOMEN/PELVIS W EXAMINATION: CT abdomen and pelvis with intravenous contrast. TECHNIQUE: Multiple contiguous axial images were obtained through the abdomen and pelvis after the uneventful administration of intravenous contrast. All CT scans use one or more of the following dose optimizing techniques: automated exposure control, MA and/or KvP adjustment based on patient size and exam type or iterative reconstruction. HISTORY: Generalized abdominal pain. COMPARISON: 11/16/2022. FINDINGS: The heart is unremarkable. Dependent atelectasis seen in the lung bases. No focal hepatic lesions. The portal vein is patent. The gallbladder is surgically absent. There is intra and extrahepatic biliary dilation, similar to the prior exam. Dilation of the pancreatic duct is also noted. Calcifications are seen within the body of the pancreas. Stable distal pancreatic resection and splenectomy. Nodule is seen in the left adrenal gland measuring 1.1 cm. The right adrenal gland is unremarkable. Stable appearance of the kidneys without acute abnormality. There is no pathologically enlarged mesenteric or retroperitoneal adenopathy. Jejunostomy tube is seen. Prior gastric bypass changes are visualized in the upper abdomen. There is a large volume of stool in the colon. Fluid-filled nondilated loops of small bowel are noted. There is no free fluid or free air. No acute osseous abnormalities. Prior kyphoplasty changes are seen at T12 and L1. Posterior fusion is seen at L5-S1. Surgical hardware is seen in the proximal left femur.. There is calcified aortic and iliac atherosclerotic plaque without aneurysm. The urinary bladder is nondistended. There is no free air, loculated collection, or adenopathy in the pelvis. IMPRESSION: 1. Large volume of stool throughout the colon, suggestive of constipation. No evidence of small bowel obstruction. No free fluid or free air. 2. Stable postsurgical changes of distal pancreectomy and splenectomy. Calcifications are again noted in the residual pancreas with dilated pancreatic duct. No discrete mass is seen. 3. Stable intra and extrahepatic biliary dilation with postcholecystectomy changes. 4. Stable nodule in the left adrenal gland measuring 1.1 cm. Dictated on workstation # [id number] Dict: 02/27/23 1238 Trans: 02/27/[address] [facility] [id number] Interpreted by: ARYAN GAINES DO Electronically signed by: Departure Impression Primary Impression: Constipation Qualified Codes: K59.01 - Slow transit constipation Disposition: HOME, SELF-CARE Condition: Stable Departure-Patient Inst. Referrals: POOJA GORDON MD (PCP/Family) Primary Care Physician Patient Instructions: Constipation, Adult (DC), Dealing with Constipation from the Drugs You Take Add. Discharge Instructions: - Prescriptions given for senna/Colace, lactulose, Fleet enema -Advised high-fiber diet and adequate hydration -Follow-up with PCP within the next 3 days Scripts Na Phos,M-B/Na Phos,Di-Ba (Enema Ready To Use) 19 Gram-7 Gram/118 Ml Enema 133 ML RC ONCE for Constipation for 2 Days, #2 EA Prov: JUAN CLARK MD 7/13/23 Sennosides/Docusate Sodium (Senna-Docusate Sodium Tablet) 8.6 Mg-50 Mg Tablet 1 EACH PO BID for 7 Days, #14 TAB Prov: JUAN CLARK MD 02/27/23 Lactulose (Lactulose) 10 Gram/15 Ml (15 Ml) Solution 10 GM PO DAILY for Constipation for 2 Days, #1 EA Prov: JUAN CLARK MD 02/27/23 JUAN CLARK MD Feb 27, 2023 11:11
[2023-02-27 11:28] LABS: BASOPHILS # (AUTO) 0.1 10^3/uL (0.0-0.1); BASOPHILS % (AUTO) 1 % (0-10); EOSINOPHILS # (AUTO) 0.1 10^3/uL (0.0-0.3); EOSINOPHILS % (AUTO) 1 % (0-10); HEMATOCRIT 43 % (35-52); HEMOGLOBIN 13.5 g/dL (11.5-16.0); LYMPHOCYTES # (AUTO) 3.1 10^3/uL (1.0-4.0); LYMPHOCYTES % (AUTO) 34 % (12-44); MEAN CORPUSCULAR HEMOGLOBIN 32 pg (25-34); MEAN CORPUSCULAR HGB CONC 32 g/dL (32-36); MEAN CORPUSCULAR VOLUME 99 fL (80-99); MEAN PLATELET VOLUME 9.5 fL (9.0-12.2); MONOCYTES # (AUTO) 0.7 10^3/uL (0.0-1.0); MONOCYTES % (AUTO) 8 % (0-12); NEUTROPHILS % (AUTO) 55 % (42-75); PLATELET COUNT 451 10^3/uL (130-400); WHITE BLOOD COUNT 9.1 10^3/uL (4.3-11.0)
[2023-02-27 11:38] LABS: INR 0.9 (0.8-1.4); PROTHROMBIN TIME PATIENT 12.2 SEC (12.2-14.7)
[2023-02-27 11:59] LABS: BUN/CREATININE RATIO 25; CALCIUM 8.1 MG/DL (8.5-10.1); CARBON DIOXIDE 20 MMOL/L (21-32); CHLORIDE 106 MMOL/L (98-107); CREATININE SERUM 1.11 MG/DL (0.60-1.30); GFR ESTIMATED 52; GLUCOSE 121 MG/DL (70-105); MAGNESIUM 2.7 MG/DL (1.6-2.4); POTASSIUM 5.3 MMOL/L (3.6-5.0); SODIUM 138 MMOL/L (135-145)
[2023-02-27 12:00] LABS: ALANINE AMINOTRANSFERASE 14 U/L (0-55); ALKALINE PHOSPHATASE 122 U/L (40-136); BILIRUBIN,TOTAL < 0.2 MG/DL (0.1-1.0); LIPASE 6 U/L (8-78); TOTAL PROTEIN 6.1 GM/DL (6.4-8.2)
[2023-02-27] MEDS ORDERED: IOHEXOL 350 MG/ML 100 ML (OMNIPAQUE 350) VIAL IV ONE (12:15)
[2023-02-27] MEDS ORDERED: NS 100 ML (IVPB) BAG IV ONE (12:15)
[2023-02-27] MEDS ORDERED: HOLD METFORMIN - RECEIVED CONTRAST 20 ML VIAL IV SCH (12:15)
[2023-02-27] MEDS ORDERED: NS IV 1000 ML 1,000 ML IV SCH (12:15)
--- NOTE | 2023-02-27 12:51 | Diagnostic Imaging Report ---
EXAMINATION: CT abdomen and pelvis with intravenous contrast. TECHNIQUE: Multiple contiguous axial images were obtained through the abdomen and pelvis after the uneventful administration of intravenous contrast. All CT scans use one or more of the following dose optimizing techniques: automated exposure control, MA and/or KvP adjustment based on patient size and exam type or iterative reconstruction. HISTORY: Generalized abdominal pain. COMPARISON: 11/16/2022. FINDINGS: The heart is unremarkable. Dependent atelectasis seen in the lung bases. No focal hepatic lesions. The portal vein is patent. The gallbladder is surgically absent. There is intra and extrahepatic biliary dilation, similar to the prior exam. Dilation of the pancreatic duct is also noted. Calcifications are seen within the body of the pancreas. Stable distal pancreatic resection and splenectomy. Nodule is seen in the left adrenal gland measuring 1.1 cm. The right adrenal gland is unremarkable. Stable appearance of the kidneys without acute abnormality. There is no pathologically enlarged mesenteric or retroperitoneal adenopathy. Jejunostomy tube is seen. Prior gastric bypass changes are visualized in the upper abdomen. There is a large volume of stool in the colon. Fluid-filled nondilated loops of small bowel are noted. There is no free fluid or free air. No acute osseous abnormalities. Prior kyphoplasty changes are seen at T12 and L1. Posterior fusion is seen at L5-S1. Surgical hardware is seen in the proximal left femur.. There is calcified aortic and iliac atherosclerotic plaque without aneurysm. The urinary bladder is nondistended. There is no free air, loculated collection, or adenopathy in the pelvis. IMPRESSION: 1. Large volume of stool throughout the colon, suggestive of constipation. No evidence of small bowel obstruction. No free fluid or free air. 2. Stable postsurgical changes of distal pancreectomy and splenectomy. Calcifications are again noted in the residual pancreas with dilated pancreatic duct. No discrete mass is seen. 3. Stable intra and extrahepatic biliary dilation with postcholecystectomy changes. 4. Stable nodule in the left adrenal gland measuring 1.1 cm. Dictated by: Dictated on workstation # [id number]
[2023-02-27 12:54] LABS: BILIRUBIN,URINE NEGATIVE (NEGATIVE); CLARITY,URINE CLEAR; COLOR,URINE YELLOW; GLUCOSE, URINE (UA) NEGATIVE (NEGATIVE); KETONES,URINE NEGATIVE (NEGATIVE); LEUKOCYTE ESTERASE ,URINE NEGATIVE (NEGATIVE); NITRITE,URINE NEGATIVE (NEGATIVE); PH,URINE 5.5 (5-9); PROTEIN,URINE NEGATIVE (NEGATIVE)
[2023-02-27 12:59] LABS: BACTERIA,URINE NEGATIVE /HPF
[2023-02-27] MEDS ORDERED: HYDROmorphone 2 MG/ML VIAL (DILAUDID) IVP ONE (13:00)
[2023-02-27] MEDS ORDERED: FLEET ENEMA ADULT 1 EA BTL PR ONE (13:00)
[2023-02-27 13:07] LABS: AMPHETAMINE SCREEN, URINE NEGATIVE (NEGATIVE); BARBITURATE SCREEN URINE NEGATIVE (NEGATIVE); BENZODIAZEPINES SCREEN URINE NEGATIVE (NEGATIVE); CANNABINOID SCREEN, URINE NEGATIVE (NEGATIVE); COCAINE SCREEN URINE NEGATIVE (NEGATIVE); METHADONE STAT NEGATIVE (NEGATIVE); OPIATE SCREEN URINE NEGATIVE (NEGATIVE); OXYCODONE STAT NEGATIVE (NEGATIVE); PROPOXYPHENE STAT NEGATIVE (NEGATIVE); TRICYCLIC ANTIDEPRESSANTS SCRE NEGATIVE (NEGATIVE)
[2023-02-27] MEDS ORDERED: NA P133E36 RC (13:20)
[2023-02-27] MEDS ORDERED: LACT10SO84 PO (13:20)
[2023-02-27] MEDS ORDERED: SENN1TAB93 PO (13:20)
[2023-02-27 13:30] VITALS: BP 129/64
== END 2023-02-27 13:33 | disposition home or self-care (01) ==
LOC: EDUNIT# 11:01 → ER FS 11:02
DX: K59.00 Constipation, unspecified (principal); Z28.310 Unvaccinated for COVID-19; Z90.49 Acquired absence of other specified parts of digestive tract
CPT/HCPCS: 36415; 74177; 80053; 80306; 81000; 83605; 83690; 83735; 84484; 85025; 85610; 85730; Q9967

== ENCOUNTER 2023-02-28 05:42 | Emergency (ER) | payer MEDICARE ==
[~2023-02-28] VITALS: Ht 155 cm; Wt 40.8 kg
[~2023-02-28 05:42] MED LIST changes: +LACT10SO84 PO; +NA P133E36 RC; +SENN1TAB93 PO
--- NOTE | 2023-02-28 06:03 | ED General ---
General Chief Complaint: General Problems/Pain Stated Complaint: SOA History of Present Illness Date Seen by Provider: Feb 28, 2023 Time Seen by Provider: 05:47 Initial Comments 69-year-old female with PMH of myasthenia gravis/chronic pain/feeding tube placement for malnourishment/ migraine headaches, is brought in by EMS with complaints of SOB and a migraine headache which began tonight. This is pt's second visit in less than 24 hours. She was here earlier for abdominal pain which was due to constipation. She had a full work-up done earlier today. EMS reports that she was on 15L of O2 when they got to the pt, and when they turned the O2 off, she was 97% on room air. In the ER she continues to be 97% on room air and has not needed O2. Pt is lying in a peculiar position with her neck hyperextended and her head tilted backwards. Pt was in this position when she came in earlier as well. Denies chest pain, palpitations, nausea, vomiting, abdominal pain. Pt has taken all her medications. Pt's constipation from morning has also improved as she had a large bowel movement at home. Allergies and Home Medications Allergies Coded Allergies: diphenhydramine (Verified Allergy, Intermediate, MUSCLE PAIN; AGITATION, 06/09/19) promethazine (Verified Allergy, Mild, AGITATION, 06/09/19) Patient Home Medication List Home Medication List Reviewed: Yes Abaloparatide (Tymlos) 1.56 Ml Pen.injctr, 80 MCG SC HS, (Reported) Entered as Reported by: MAY MASON on 04/17/20 1131 Acetaminophen (Tylenol Extra Strength) 500 Mg Tablet, 1,000 MG PO Q8H PRN for PAIN-MILD (1-4), (Reported) Entered as Reported by: DOLORES DYER on 01/18/22 1435 Carvedilol (Carvedilol) 3.125 Mg Tablet, 3.125 MG PO BID, (Reported) Entered as Reported by: ANGELO SETH on 06/09/19 1340 Cephalexin (Cephalexin) 500 Mg Tablet, 500 MG PO QID Prescribed by: HALLEY LONG on 11/16/22 1758 Duloxetine HCl (Duloxetine HCl) 60 Mg Capsule.dr, 60 MG PO BID, (Reported) Entered as Reported by: ANGELO SETH on 06/09/19 1340 Fentanyl (Fentanyl Patch 25 MCG) 1 Each Patch.td72, 25 MCG TD Q72H, (Reported) Entered as Reported by: MAY MASON on 04/17/20 1131 Gabapentin (Neurontin) 300 Mg Capsule, 400 MG PO QID, (Reported) Entered as Reported by: MAY MASON on 04/17/20 1131 Gabapentin (Gabapentin) 100 Mg Capsule, 100 MG PO QID, (Reported) Entered as Reported by: DOLORES DYER on 01/18/22 1426 Hydrocodone/Acetaminophen (Hydrocodone-Acetamin 5-325 mg) 5 Mg-325 Mg Tablet, 1 TAB PO Q8H PRN for PAIN-MODERATE (5-7) Prescribed by: HALLEY LONG on 02/14/222000 Lactulose (Lactulose) 10 Gram/15 Ml (15 Ml) Solution, 10 GM PO DAILY Prescribed by: JUAN CLARK MD on 02/27/23 1320 Levothyroxine Sodium (Levothyroxine Sodium) 100 Mcg Tablet, 100 MCG PO HS, (Reported) Entered as Reported by: DOLORES DYER on 01/18/22 1436 Lipase/Protease/Amylase (Creon Dr 24,000 Units Capsule) 1 Each Capsule., 4 CAP PO TIDWM, (Reported) Entered as Reported by: ANGELO SETH on 06/09/19 1340 Na Phos,M-B/Na Phos,Di-Ba (Enema Ready To Use) 19 Gram-7 Gram/118 Ml Enema, 133 ML RC ONCE Prescribed by: JUAN CLARK MD on 02/27/23 1320 Omeprazole (Omeprazole) 40 Mg Capsule.dr, 40 MG PO DAILY, (Reported) Entered as Reported by: RICCI BLAIR on 07/07/15 1540 Pravastatin Sodium (Pravastatin Sodium) 10 Mg Tablet, 10 MG PO HS, (Reported) Entered as Reported by: ANGELO SETH on 06/09/19 1340 Pyridostigmine [place] (Mestinon) 60 Mg Tab, 60 MG PO TID, (Reported) Entered as Reported by: RICCI BLAIR on 07/07/15 1445 Ropinirole HCl (Ropinirole HCl) 0.5 Mg Tablet, 0.5 MG PO HS, (Reported) Entered as Reported by: RICCI BLAIR on 07/07/15 1540 Sennosides/Docusate Sodium (Senna-Docusate Sodium Tablet) 8.6 Mg-50 Mg Tablet, 1 EACH PO BID Prescribed by: JUAN CLARK MD on 02/27/23 1320 Sulfamethoxazole/Trimethoprim (Bactrim Ds Tablet) 800 Mg-160 Mg Tablet, 1 EACH PO BID, (Reported) Entered as Reported by: DOLORES DYER on 01/18/22 1422 Temazepam (Temazepam) 30 Mg Capsule, 30 MG PO HS PRN for SLEEP, (Reported) Entered as Reported by: ANGELO SETH on 06/09/19 1340 Trazodone HCl (Trazodone HCl) 50 Mg Tablet, 50 MG PO 2000, (Reported) Entered as Reported by: DOLORES DYER on 01/18/22 1426 Review of Systems Review of Systems Constitutional: no symptoms reported EENTM: no symptoms reported Respiratory: see HPI, short of breath Cardiovascular: no symptoms reported Gastrointestinal: no symptoms reported Genitourinary: no symptoms reported Musculoskeletal: no symptoms reported Skin: no symptoms reported Psychiatric/Neurological: Headache Hematologic/Lymphatic: No Symptoms Reported Immunological/Allergic: no symptoms reported Past Xfwfyef-Gxwiqd-Dmkqdx Hx Patient Social History Tobacco Use?: No Use of E-Cig and/or Vaping dev: No Substance use?: No Alcohol Use?: No Immunizations Up To Date First/Initial COVID19 Vaccinat: 10/10/20 Second COVID19 Vaccination Miki: 11/07/20 Third COVID19 Vaccination Date: 07/30/21 Seasonal Allergies Seasonal Allergies: No Past Medical History Surgery/Hospitalization HX: mystenia gravis; g-tube; osteoporosis; malabsorption/malnutrition. Surgeries: Yes (ORIF left hip, right shoulder sx, cholecystectomy, spleenectomy) Gallbladder, Orthopedic Respiratory: Yes Pneumonia Currently Using CPAP: No Currently Using BIPAP: No Cardiac: Yes Neurological: Yes (MYASTHENIA GRAVIS) Reproductive Disorders: No Female Reproductive Disorders: Denies Sexually Transmitted Disease: No HIV/AIDS: No Genitourinary: No Gastrointestinal: Yes (GASTRITIS, MALNUTRITION, GASTRIC BYPASS, STOMACH STAPLING) Pancreatitis, Chronic Diarrhea Musculoskeletal: Yes (Kyphoplasty vertebrae of compression fx) Osteoporosis, Fractures Endocrine: No HEENT: Yes Tonsilitis Loss of Vision: Denies Hearing Impairment: Denies Cancer: No Psychosocial: Yes Anxiety Integumentary: No Blood Disorders: No Adverse Reaction/Blood Tranf: No Family Medical History Diabetes mellitus 19 MOTHER FH: lung cancer 19 FATHER Cancer, Diabetes Physical Exam Vital Signs Capillary Refill : Height, Weight, BMI Height: 5'5.00" Weight: 113lbs. 0oz. 51.042365cn; 17.00 BMI Method:Stated General Appearance: No Apparent Distress, WD/WN HEENT: Normal ENT Inspection Neck: Full Range of Motion, Normal Inspection, Non Tender, Supple Respiratory: Chest Non Tender, Lungs Clear, Normal Breath Sounds, No Accessory Muscle Use Cardiovascular: Regular Rate, Rhythm, No Edema Gastrointestinal: Normal Bowel Sounds, Non Tender, Soft Extremity: Normal Range of Motion Neurologic/Psychiatric: Alert, Oriented x3, No Motor/Sensory Deficits Skin: Normal Color Procedures/Interventions Date of ETT Placement: December 20, 2022 Time of ETT Placement: 1624 Progress/Results/Core Measures Suspected Sepsis SIRS Temperature: Pulse: Respiratory Rate: Blood Pressure / Mean: Results/Orders Vital Signs/I&O Capillary Refill : Progress Note : Progress Note 1. SOB DUE TO ANXIETY: - Duo neb x 1 - Pt is not needing O2. Her O2 sat in the ER is 100% on room air - Pt needs to follow up with PCP in the next 3 days -Patient has had a full lab panel work-up done in the morning which were unremarkable and did not show any acute findings. The CT abdomen showed lower half of the chest and no acute findings were seen there either. Oxygen saturation has been 100% on room air and her time in the ER right now. Patient' s symptoms are not proportional to her clinical exam and vitals. Patient would benefit from a psychiatric work-up as outpatient. - Advised to make Psych appointment to better manage her pain symptoms and to evaluate for psychogenic causes. -The patient was seen in the ED, and treated appropriately to presentation at a specific point in time. Patient is informed that there is a possibility that disease and illness can evolve and change in acuity rapidly or slowly after patient is discharged from the ER. Precautionary advice given to the patient for immediate return to ER if symptoms worsen or do not resolve, and to seek emergency care sooner rather than later. Pt also advised on the importance of PCP follow up and compliance with management and follow up plan with PCP and/or specialist, as this is part of the management plan. Pt verbally expressed understanding. 2. MIGRAINE: - Toradol im given - Pt does not want prednisone Departure Impression Primary Impression: Migraine Additional Impression: Anxiety Disposition: 01 HOME, SELF-CARE Condition: Stable Departure-Patient Inst. Referrals: POOJA GORDON MD (PCP/Family) Primary Care Physician Patient Instructions: CHRONIC PAIN, Migraines in adults, Using Cold for Pain, Anxiety, Adult ED Add. Discharge Instructions: - Pt needs to follow up with PCP in the next 3 days - Advised to make Psych appointment to better manage her pain symptoms and to evaluate for psychogenic causes. - Pt does not want prednisone All discharge instructions reviewed with patient and/or family. Voiced understanding. JUAN CLARK MD Feb 28, 2023 06:03
[2023-02-28] MEDS ORDERED: RT-ALBUTEROL/IPRATROPIUM 3 ML (DUONEB) VIAL ONE (06:08)
[2023-02-28] MEDS ORDERED: KETOROLAC 15 MG/ML VIAL ONE (06:09)
[2023-02-28] MEDS ORDERED: KETOROLAC 30 MG/ML VIAL IM ONE (06:15)
[2023-02-28] MEDS ORDERED: RT-ALBUTEROL/IPRATROPIUM 3 ML (DUONEB) VIAL INH ONE (06:15)
[2023-02-28] MEDS ORDERED: KETOROLAC 15 MG/ML VIAL IVP ONE (06:15)
[2023-02-28] MEDS ORDERED: KETOROLAC 30 MG/ML VIAL ONE (06:16)
[2023-02-28 06:56] VITALS: BP 131/86
== END 2023-02-28 06:56 | disposition home or self-care (01) ==
LOC: EDUNIT# 05:42 → ER FS 05:43
DX: G43.909 Migraine, unspecified, not intractable, without status migrainosus (principal); F41.9 Anxiety disorder, unspecified
CPT/HCPCS: 99284

== ENCOUNTER 2023-03-20 22:54 | Inpatient (IN) | payer MEDICARE ==
[~2023-03-20] VITALS: Ht 162.6 cm; Wt 40.8 kg
[2023-03-20 23:38] LABS: HEMATOCRIT 40 % (35-52); HEMOGLOBIN 13.1 g/dL (11.5-16.0); MEAN CORPUSCULAR HEMOGLOBIN 32 pg (25-34); MEAN CORPUSCULAR HGB CONC 33 g/dL (32-36); MEAN CORPUSCULAR VOLUME 96 fL (80-99); MEAN PLATELET VOLUME 10.5 fL (9.0-12.2); PLATELET COUNT 227 10^3/uL (130-400); WHITE BLOOD COUNT 11.7 10^3/uL (4.3-11.0)
[2023-03-21 00:41] LABS: POTASSIUM 4.8 MMOL/L (3.6-5.0); SODIUM 134 MMOL/L (135-145)
[2023-03-21 00:42] LABS: BILIRUBIN,DIRECT < 0.2 MG/DL (0.0-0.3); BILIRUBIN,INDIRECT 0.1 MG/DL; BILIRUBIN,TOTAL 0.3 MG/DL (0.1-1.0); BUN/CREATININE RATIO 18; CALCIUM 8.2 MG/DL (8.5-10.1); CARBON DIOXIDE 21 MMOL/L (21-32); CHLORIDE 101 MMOL/L (98-107); CREATININE SERUM 1.36 MG/DL (0.60-1.30); GFR ESTIMATED 41; GLUCOSE 102 MG/DL (70-105)
[2023-03-21 00:43] LABS: ALANINE AMINOTRANSFERASE 19 U/L (0-55); ALBUMIN 3.3 GM/DL (3.2-4.5); ALKALINE PHOSPHATASE 121 U/L (40-136); TOTAL PROTEIN 5.8 GM/DL (6.4-8.2)
[2023-03-21 00:56] LABS: BILIRUBIN,URINE NEGATIVE (NEGATIVE); CLARITY,URINE CLEAR; COLOR,URINE YELLOW; GLUCOSE, URINE (UA) NEGATIVE (NEGATIVE); KETONES,URINE NEGATIVE (NEGATIVE); LEUKOCYTE ESTERASE ,URINE TRACE (NEGATIVE); NITRITE,URINE NEGATIVE (NEGATIVE); PROTEIN,URINE NEGATIVE (NEGATIVE)
[2023-03-21 01:09] LABS: BACTERIA,URINE LARGE /HPF; RBC,URINE RARE /HPF; RENAL EPITHELIAL CELLS,URINE RARE /HPF; SQUAMOUS EPITHELIAL CELL,UR RARE /HPF; WHITE BLOOD CELL CASTS, URINE RARE /LPF
--- NOTE | 2023-03-21 02:24 | ED Trauma-Multisystem ---
General Chief Complaint: Trauma-Non Activation Stated Complaint: FALL Activation Level: Level 2 Nursing Triage Note: Arrival to ED per [facility] from [facility] for report of unwitnessed fall finding pt on her left side on tile floor with AMS/contusions/abrasions/hematoma to L side eye, face, and shoulder and not responding verbally. Pt has pinpoint pupils that are non-reactive. Pt is a DNR but admitted Mar 18 to become Hospice but patient declined to sign that day. Pt received night meds 2129 last known well time. Arrived in c-collar. Source of Information: EMS, [facility] Records Exam Limitations: Physical Impairments, Other (Change of level of consciousness) History of Present Illness Date Seen by Provider: Mar 20, 2023 Time Seen by Provider: 23:00 Initial Comments 72-year-old female patient resident of [facility] brought in by EMS because of a fall and injury to face and head. Patient has history of advanced myasthenia gravis and DNR condition and was admitted to longterm 3 days ago. Patient had unwitnessed fall and found face down on her left side on tile floor with multiple injury to her face. custodial reported that patient was not acting like her normal and not verbally responding. Patient had several sedative medication tonight as her home medication. Patient localized pain and following the commands with squeezing my hand but unable to give history or answers the question. Patient and son presented to ER and stated her primary care physician requested hospice care but patient refused to sign hospice form. Patient had tetanus booster in 2019. Location Injury Occurred: [facility] patient room Occurred: Just Prior to Arrival Method of Injury: Fall Loss of Consciousness: Unsure Allergies and Home Medications Allergies Coded Allergies: diphenhydramine (Verified Allergy, Intermediate, MUSCLE PAIN; AGITATION, 06/09/19) promethazine (Verified Allergy, Mild, AGITATION, 06/09/19) Patient Home Medication List Home Medication List Reviewed: Yes Abaloparatide (Tymlos) 1.56 Ml Pen.injctr, 80 MCG SC HS, (Reported) Entered as Reported by: MAY MASON on 04/17/20 1131 Acetaminophen (Tylenol Extra Strength) 500 Mg Tablet, 1,000 MG PO Q8H PRN for PA IN-MILD (1-4), (Reported) Entered as Reported by: DOLORES DYER on 01/18/22 1435 Carvedilol (Carvedilol) 3.125 Mg Tablet, 3.125 MG PO BID, (Reported) Entered as Reported by: ANGELO SETH on 06/09/19 1340 Cephalexin (Cephalexin) 500 Mg Tablet, 500 MG PO QID Prescribed by: HALLEY LONG on 11/16/22 1758 Duloxetine HCl (Duloxetine HCl) 60 Mg Capsule.dr, 60 MG PO BID, (Reported) Entered as Reported by: ANGELO SETH on 06/09/19 1340 Fentanyl (Fentanyl Patch 25 MCG) 1 Each Patch.td72, 25 MCG TD Q72H, (Reported) Entered as Reported by: MAY MASON on 04/17/20 113 Gabapentin (Neurontin) 300 Mg Capsule, 400 MG PO QID, (Reported) Entered as Reported by: MAY MASON on 04/17/20 113 Gabapentin (Gabapentin) 100 Mg Capsule, 100 MG PO QID, (Reported) Entered as Reported by: DOLORES DYER on 01/18/22 1426 Hydrocodone/Acetaminophen (Hydrocodone-Acetamin 5-325 mg) 5 Mg-325 Mg Tablet, 1 TAB PO Q8H PRN for PAIN-MODERATE (5-7) Prescribed by: HALLEY LONG on 02/14/222000 Lactulose (Lactulose) 10 Gram/15 Ml (15 Ml) Solution, 10 GM PO DAILY Prescribed by: JUAN CLARK MD on 02/27/23 1320 Levothyroxine Sodium (Levothyroxine Sodium) 100 Mcg Tablet, 100 MCG PO HS, (Reported) Entered as Reported by: DOLORES DYER on 01/18/22 1436 Lipase/Protease/Amylase (Creon 24,000 Units Capsule) 1 Each Capsule., 4 CAP PO TIDWM, (Reported) Entered as Reported by: ANGELO SETH on 06/09/19 1340 Na Phos,M-B/Na Phos,Di-Ba (Enema Ready To Use) 19 Gram-7 Gram/118 Ml Enema, 133 ML RC ONCE Prescribed by: JUAN CLARK MD on 02/27/23 1320 Omeprazole (Omeprazole) 40 Mg Capsule., 40 MG PO DAILY, (Reported) Entered as Reported by: RICCI BLAIR on 07/07/15 1540 Pravastatin Sodium (Pravastatin Sodium) 10 Mg Tablet, 10 MG PO HS, (Reported) Entered as Reported by: ANGELO SETH on 06/09/19 1340 Pyridostigmine [place] (Mestinon) 60 Mg Tab, 60 MG PO TID, (Reported) Entered as Reported by: RICCI BLAIR on 07/07/15 1445 Ropinirole HCl (Ropinirole HCl) 0.5 Mg Tablet, 0.5 MG PO HS, (Reported) Entered as Reported by: RICCI BLAIR on 07/07/15 1540 Sennosides/Docusate Sodium (Senna-Docusate Sodium Tablet) 8.6 Mg-50 Mg Tablet, 1 EACH PO BID Prescribed by: JUAN CLARK MD on 02/27/23 1320 Sulfamethoxazole/Trimethoprim (Bactrim Ds Tablet) 800 Mg-160 Mg Tablet, 1 EACH PO BID, (Reported) Entered as Reported by: DOLORES DYER on 01/18/22 1422 Temazepam (Temazepam) 30 Mg Capsule, 30 MG PO HS PRN for SLEEP, (Reported) Entered as Reported by: ANGELO SETH on 06/09/19 1340 Trazodone HCl (Trazodone HCl) 50 Mg Tablet, 50 MG PO 2000, (Reported) Entered as Reported by: DOLORES DYER on 01/18/22 1426 Review of Systems Review of Systems Constitutional: other (Unable to obtain, patient is not communicating verbally) Past Mojvjbi-Pwezfo-Fuepaw Hx Patient Social History Tobacco Use?: No Smoking Status: Unknown if Ever Smoked Use of E-Cig and/or Vaping dev: No Use of E-Cig and/or Vaping Juan: Unknown if Ever Used Substance use?: Unable to obtain Alcohol Use?: No Pt feels they are or have been: Unable to obtain Immunizations Up To Date First/Initial COVID19 Vaccinat: 10/10/20 Second COVID19 Vaccination Miki: 11/07/20 Third COVID19 Vaccination Date: 07/30/21 COVID19 Vaccine Nitroglycerin 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 Operator: Unknown Seasonal Allergies Seasonal Allergies: No Past Medical History Surgery/Hospitalization HX: Mystenia Gravis; g-tube; osteoporosis; malabsorption/malnutrition; bilateral shoulder fx repairs; L hip fx, hypothyroidism; CHF Surgeries: Yes (ORIF left hip, right shoulder sx, cholecystectomy, spleenect trupti) Gallbladder, Orthopedic Respiratory: Yes Pneumonia Currently Using CPAP: No Currently Using BIPAP: No Cardiac: Yes Neurological: Yes (MYASTHENIA GRAVIS) Reproductive Disorders: No Female Reproductive Disorders: Denies Sexually Transmitted Disease: No HIV/AIDS: No Genitourinary: No Gastrointestinal: Yes (GASTRITIS, MALNUTRITION, GASTRIC BYPASS, STOMACH STAPLING) Pancreatitis, Chronic Diarrhea Musculoskeletal: Yes (Kyphoplasty vertebrae of compression fx) Osteoporosis, Fractures Endocrine: No HEENT: Yes Tonsilitis Loss of Vision: Denies Hearing Impairment: Denies Cancer: No Psychosocial: Yes Anxiety Integumentary: No Blood Disorders: No Adverse Reaction/Blood Tranf: No Family Medical History Diabetes mellitus 19 MOTHER FH: lung cancer 19 FATHER Cancer, Diabetes Physical Exam Vital Signs Vital Signs - First Documented Height, Weight, BMI Height: 5'5.00" Weight: 113lbs. 0oz. 51.756155tu; 16.00 BMI Method:Stated General Appearance: Chronically ill, Cachetic Head: Ecchymosis, Lacerations, Swelling, Other (Left forehead large hematoma, 3 cm linear laceration below left eyebrow, left cheek 2 cm skin tear and several c ontusion and missing skin on cheek and left side of neck) Eyes: Bilateral Eye Abnormal EOM (Pinpoint) Ears, Nose, Throat: Other (Good gag reflex) Neck: Other (C-collar in place prior to arrival to ER) Cardiovascular: Regular Rate, Rhythm, No Edema, No Gallop Respiratory: Chest Non Tender, Lungs Clear, Normal Breath Sounds, No Accessory Muscle Use Gastrointestinal: Non Tender, Other (PEG tube in place, nontender) Extremity: Other (Left shoulder contusion and erythema, multiple old ecchymosis of bilateral lower extremities, moves right upper and lower extremities ) Skin: Ecchymosis, Erythema, Other (Multiple ecchymosis and contusions and skin tears) Hitesh Coma Score Best Eye Response (Hitesh): (2) Open to Pain Best Verbal Response (Hitesh): (2) Incomprehsible Sounds Best Motor Response (Hitesh): (5) Localizes to Pain [place] Total: 9 Procedures/Interventions Date of ETT Placement: December 20, 2022 Time of ETT Placement: 1623 Wound Location: Face (Below her left eyebrow) Other Wound Location Left cheek skin tear 2 cm Wound Length (cm): 3 Wound's Depth, Shape: superficial, linear Wound Explored: clean Other Closure Supply: Steri Strip 1/2", Wound Adhesive Progress Left cheek 2 cm skin tear was repaired with adhesive and Steri-Strip. Progress/Results/Core Measures Results/Orders Lab Results Laboratory Tests Test 03/20/23 23:30 03/20/23 23:40 03/21/23 00:10 Range/Units White Blood Count 11.7 H 4.3-11.0 10^3/uL Red Blood Count 4.16 3.80-5.11 10^6/uL Hemoglobin 13.1 11.5-16.0 g/dL Hematocrit 40 35-52 % Mean Corpuscular Volume 96 80-99 fL Mean Corpuscular Hemoglobin 32 25-34 pg Mean Corpuscular Hemoglobin Concent 33 32-36 g/dL Red Cell Distribution Width 14.5 10.0-14.5 % Platelet Count 227 130-400 10^3/uL Mean Platelet Volume 10.5 9.0-12.2 fL Urine Color YELLOW Urine Clarity CLEAR Urine pH 6.0 5-9 Urine Specific [place] 1.020 1.016-1.022 Urine Protein NEGATIVE NEGATIVE Urine Glucose (UA) NEGATIVE NEGATIVE Urine Ketones NEGATIVE NEGATIVE Urine Nitrite NEGATIVE NEGATIVE Urine Bilirubin NEGATIVE NEGATIVE Urine Urobilinogen 0.2 < = 1.0 MG/DL Urine Leukocyte Esterase TRACE H NEGATIVE Urine RBC (Auto) NEGATIVE NEGATIVE Urine RBC RARE /HPF Urine WBC 5-10 H /HPF Urine Squamous Epithelial Cells RARE /HPF Urine Renal Epithelial Cells RARE /HPF Urine Crystals NONE /LPF Urine Bacteria LARGE H /HPF Urine Casts PRESENT /LPF Urine Hyaline Casts 2-5 H /LPF Urine White Blood Cell Casts RARE H /LPF Urine Mucus SMALL H /LPF Urine Culture Indicated YES Sodium Level 134 L 135-145 MMOL/L Potassium Level 4.8 3.6-5.0 MMOL/L Chloride Level 101 98-107 MMOL/L Carbon Dioxide Level 21 21-32 MMOL/L Anion Gap 12 5-14 MMOL/L Blood Urea Nitrogen 25 H 7-18 MG/DL Creatinine 1.36 H 0.60-1.30 MG/DL Estimat Glomerular Filtration Rate 41 BUN/Creatinine Ratio 18 Glucose Level 102 70-105 MG/DL Calcium Level 8.2 L 8.5-10.1 MG/DL Total Bilirubin 0.3 0.1-1.0 MG/DL Direct Bilirubin < 0.2 0.0-0.3 MG/DL Indirect Bilirubin 0.1 MG/DL Aspartate Amino Transf (AST/SGOT) 28 5-34 U/L Alanine Aminotransferase (ALT/SGPT) 19 0-55 U/L Alkaline Phosphatase 121 40-136 U/L Total Protein 5.8 L 6.4-8.2 GM/DL Albumin 3.3 3.2-4.5 GM/DL My Orders Orders - RAMBO MENON MD Ct Head/Face/Cervical Wo (03/20/23 23:03) Cbc No Diff (03/20/23 23:12) Basic Metabolic Panel (03/20/23 23:12) Liver Panel (03/20/23 23:12) Ua Culture If Indicated (03/20/23 23:12) Chest 1 View Ap/Pa Only (03/20/23 23:12) Monitor-Rhythm Ecg Trace Only (03/20/23 23:12) Shoulder 3 View Left (03/20/23 23:12) Pelvis (Ap) (03/20/23 23:14) Urine Culture (03/20/23 23:40) Ceftriaxone Iv/Im (Ceftriaxone Iv/Im) (03/21/23 02:45) Medications Given in ED Current Medications Medications Dose Ordered Sig/Lola Route Start Time Stop Time Status Last Admin Dose Admin Ceftriaxone Sodium 1000 mg/ Sodium Chloride 50 ml @ 100 mls/hr ONCE ONCE IV 03/21/23 02:45 03/21/23 03:14 03/21/23 02:44 100 MLS/HR Vital Signs/I&O 03/20/23 03/20/23 23:55 23:55 Temp 36.3 36.3 Pulse 55 55 Resp 22 22 B/P (MAP) 132/59 (83) 132/59 (83) Pulse Ox 99 99 O2 Delivery Room Air Room Air Blood Pressure Mean: 83 Progress Progress Note : Progress Note 72-year-old female patient with history of myasthenia gravis with limited ambulation with recent longterm placement brought in by EMS because of a fall and injury to face. Patient has c-collar at arrival to ER and multiple facial laceration and abrasion and contusion and skin tear. Patient had GCS of 9 with good gag reflex. Patient is a DNR. CBC, CMP UA was ordered and reviewed by me and showed chronic renal insufficiency and UTI and Rocephin was ordered, CT head, facial and cervical spine was ordered by me and interpreted by radiologist and showed nondisplaced left orbital floor fracture, chest x-ray, left shoulder x-ray and pelvis x-ray ordered and reviewed by me and did not show acute fracture. Facial laceration and skin tear was repaired with Dermabond and Steri-Strip. Patient did not acting like her usual and longterm was not able to taking care of her. On-call hospitalist Dr. Pearson was consulted at 0202 and accepted admission to ICU. Patient family updated frequently about test result and plan of care and need for admission all questions was addressed. Diagnostic Imaging Diagonstic Imaging: Xray, CT Plain Films/CT/US/NM/MRI: chest, c-spine, pelvis, head Comments Left shoulder, 1 view chest, pelvis x-ray ordered and interpreted by me and did not show acute fracture or dislocation. CT head and cervical spine and facial bones interpreted by radiologist and reviewed by me and showed nondisplaced fracture of the floor of the left orbit without entrapment of extraocular muscle. Departure Communication (Admissions) Time/Spoke to Admitting Phy: 02:02 Dr. Pearson on-call hospitalist was informed about patient condition and agreed to admitting the patient in ICU. Family Conversation Patient's family informed about plan of care and need for admission and updated frequently about test results and plan of care Impression Primary Impression: Fall at longterm Qualified Codes: W19.XXXA - Unspecified fall, initial encounter; Y92.129 - Unspecified place in longterm as the place of occurrence of the external cause Additional Impressions: Head injury Qualified Codes: S09.90XD - Unspecified injury of head, subsequent encounter Altered level of consciousness Facial laceration Qualified Codes: S01.81XS - Laceration without foreign body of other part of head, sequela Closed fracture of left orbital floor Qualified Codes: S02.32XS - Fracture of orbital floor, left side, sequela Chronic renal insufficiency Qualified Codes: N18.9 - Chronic kidney disease, unspecified Myasthenia gravis Facial contusion Qualified Codes: S00.83XS - Contusion of other part of head, sequela Skin tear UTI (urinary tract infection) Qualified Codes: N39.0 - Urinary tract infection, site not specified Disposition: ADMITTED INPATIENT Condition: Improved Admissions Decision to Admit Reason: Admit from ER (Trauma) Decision to Admit/Date: Mar 21, 2023 Time/Decision to Admit Time: 02:05 Departure-Patient Inst. Referrals: POOJA GORDON MD (PCP/Family) Primary Care Physician RAMBO MENON MD Mar 21, 2023 02:24
[2023-03-21] MEDS ORDERED: cefTRIAXone IV/IM 1,000 MG in NS (IVPB) 50 ML 50 ML IV ONE (02:45)
[2023-03-21 03:00] VITALS: BP 119/66
[2023-03-21] MEDS ORDERED: DIPH1TAB25 PO (03:27)
[2023-03-21] MEDS ORDERED: CATHETER FLUSH 10 ML SYR IVP PRN (04:30)
--- NOTE | 2023-03-21 04:34 | Tele-ICU Progress Note ---
Subjective Date Seen by a Provider: Mar 21, 2023 Subjective/Events-last exam This virtual visit was conducted using real time audio/video. Thank you for asking us to see this patient for critical care services due to unwitnessed fall resulting in multiple contusions, abrasions, hematoma and non- displaced orbital floor fracture. Some AMS in ER which has resolved. PMH: ES M. Gravis PE: Cachectic. VSS. O2 sat 99% on RA HEENT: Extensive bruising and skin tears. No obvious masses, adenopathy or JVD. Chest: clear to auscultation. CV: RRR S1 S2 No murmur or added sounds. Abd: Non-tender. Bowel sounds Y. : Unremarkable. [place] [employer]INEER/psychiatric: Grossly intact. No obvious focal findings. Extremities: No edema. Capillary refill < 3 seconds. Skin: unremarkable. Results: Elevated BUN 25, Creat. 1.36, WCC 11.7. Decreased Na 134. CXR: Cl ear. UA c/w UTI. Available chart/ vitals / labs / images reviewed. Video assessment done using teleICU camera, rest of exam as per RN. A/P: Critical Care: Cont. monitoring, Rocephin. Likely can transfer to floor later today. Discussed with RN Sana. Asked RN to reach out to eICU if any questions or concerns later. Time spent with patient/coordination of care with other health professionals (mins): 15 Sepsis Event Evaluation Height, Weight, BMI Height: 5'5.00" Weight: 113lbs. 0oz. 51.574422zt; 16.00 BMI Method:Stated Exam Exam Patient acknowledged, consented, and participated in this virtual visit which was conducted using real time audio/video Vital Signs Date Time Temp Pulse Resp B/P (MAP) Pulse Ox O2 Delivery O2 Flow Rate FiO2 03/21/23 03:00 36.4 72 16 119/66 100 Room Air 03/21/23 03:00 36.4 72 16 119/66 (83) 100 Room Air 03/21/23 02:45 61 18 119/66 (83) 100 Room Air 03/21/23 02:30 50 15 113/75 (88) 100 Room Air 03/21/23 02:15 51 16 119/54 (75) 100 Room Air 03/21/23 02:00 50 15 117/54 (75) 100 Room Air 03/21/23 01:45 48 15 111/53 (72) 100 Room Air 03/21/23 01:30 49 16 122/54 (76) 100 Room Air 03/21/23 01:15 53 15 118/61 (80) 100 Room Air 03/21/23 01:00 53 15 131/65 (87) 100 Room Air 03/21/23 00:15 51 14 125/55 (78) 99 Room Air 03/21/23 00:00 50 15 126/51 (76) 99 Room Air 03/20/23 23:55 36.3 55 22 132/59 (83) 99 Room Air 03/20/23 23:55 36.3 55 22 132/59 (83) 99 Room Air 03/20/23 23:45 58 16 128/56 (80) 99 Room Air 03/20/23 23:15 57 16 144/53 (83) 99 Room Air 03/20/23 22:55 36.3 55 22 132/59 (83) 99 Room Air I & O 03/21/23 07:00 Intake Total 50 ml Balance 50 ml Height & Weight Height: 5'5.00" Weight: 113lbs. 0oz. 51.415024jd; 16.00 BMI Method:Stated General Appearance: Chronically ill, Cachetic Neck: Other (C-collar in place prior to arrival to ER) Respiratory: Chest Non Tender, Lungs Clear, Normal Breath Sounds, No Accessory Muscle Use Cardiovascular: Regular Rate, Rhythm, No Edema, No Gallop Capillary Refill: Less Than 3 Seconds Extremity: Other (Left shoulder contusion and erythema, multiple old ecchymosis of bilateral lower extremities, moves right upper and lower extremities ) Skin: Ecchymosis, Erythema, Other (Multiple ecchymosis and contusions and skin tears) Results Lab Laboratory Tests 03/20/23 23:30 03/21/23 00:10 Assessment/Plan Assessment/Plan See free text. Critical Care: Critically Ill Patient GALINDO MINA MD Mar 21, 2023 04:33
[2023-03-21 06:00] LABS: BASOPHILS % (AUTO) 0 % (0-10); EOSINOPHILS % (AUTO) 0 % (0-10); HEMATOCRIT 40 % (35-52); HEMOGLOBIN 13.2 g/dL (11.5-16.0); LYMPHOCYTES # (AUTO) 1.2 10^3/uL (1.0-4.0); LYMPHOCYTES % (AUTO) 7 % (12-44); MEAN CORPUSCULAR HEMOGLOBIN 32 pg (25-34); MEAN CORPUSCULAR HGB CONC 33 g/dL (32-36); MEAN CORPUSCULAR VOLUME 95 fL (80-99); MEAN PLATELET VOLUME 9.7 fL (9.0-12.2); MONOCYTES # (AUTO) 0.7 10^3/uL (0.0-1.0); MONOCYTES % (AUTO) 4 % (0-12); NEUTROPHILS # (AUTO) 15.6 10^3/uL (1.8-7.8); NEUTROPHILS % (AUTO) 89 % (42-75); PLATELET COUNT 253 10^3/uL (130-400); WHITE BLOOD COUNT 17.6 10^3/uL (4.3-11.0)
[2023-03-21] MEDS ORDERED: CATHETER FLUSH 10 ML SYR IVP SCH (06:00)
[2023-03-21 06:21] LABS: BILIRUBIN,TOTAL 0.3 MG/DL (0.1-1.0); CALCIUM 7.9 MG/DL (8.5-10.1); CREATININE SERUM 1.13 MG/DL (0.60-1.30); MAGNESIUM 2.3 MG/DL (1.6-2.4); PHOSPHORUS 4.2 MG/DL (2.3-4.7); POTASSIUM 4.7 MMOL/L (3.6-5.0); TOTAL PROTEIN 5.6 GM/DL (6.4-8.2)
[2023-03-21 06:23] LABS: NEUTROPHILS % (MANUAL) 88 %
[2023-03-21 06:24] LABS: LYMPHOCYTES % (MANUAL) 5 %; MONOCYTES % (MANUAL) 7 %
--- NOTE | 2023-03-21 08:07 | Diagnostic Imaging Report ---
INDICATION: Fall, chest wall contusion TECHNIQUE: Single view chest 12:39 AM CORRELATION STUDY: 12/20/2022 FINDINGS: Heart size, mediastinum and vasculature overall within normal limits. Calcification of the aortic arch. Lungs are clear. Multifocal kyphoplasty changes thoracic and lumbar spine. Surgical clips in the upper abdomen. Surgical hardware over the old proximal right humerus fracture. IMPRESSION: 1. Negative for acute abnormality of the chest. Dictated by: Dictated on workstation # [id number]
--- NOTE | 2023-03-21 08:08 | Diagnostic Imaging Report ---
INDICATION: Fall, chest wall contusion with pain TECHNIQUE: Three views of the left shoulder CORRELATION STUDY: 05/26/2021 FINDINGS: No acute fracture or dislocation. There is deformity of the humeral head, may be reflective of a more remote injury. Hypertrophic changes acromioclavicular joint. Soft tissues and visualized left lung apex unremarkable. Previous kyphoplasty changes thoracic spine. Old left-sided rib fracture deformities as well. IMPRESSION: 1. Negative for acute bony abnormality of the shoulder. Dictated by: Dictated on workstation # [id number]
--- NOTE | 2023-03-21 08:24 | Diagnostic Imaging Report ---
INDICATION: Post fall with head injury, pain TECHNIQUE: AP pelvis 12:33 AM CORRELATION STUDY: None FINDINGS: Old left hemipelvic fracture deformity. Internal fixation hardware of the proximal left femur. There is no acute displaced fracture. Right hip is maintained. Lumbosacral spinal fixation hardware. Generalized bony demineralization. IMPRESSION: Prior traumatic change left hemipelvis. Negative for acute fracture. Dictated by: Dictated on workstation # [id number]
--- NOTE | 2023-03-21 09:26 | Diagnostic Imaging Report ---
Clinical Indication: Patient is status post fall with head injury and contusion and altered mental status. Exam: Axial Head CT without IV contrast with sagittal and coronal reformations. Axial Maxillofacial CT scan without IV contrast with sagittal and coronal reformations. Axial CT scan of the cervical spine with sagittal and coronal reformations. Auto Exposure Controls were utilized during the CT exam to meet ALARA standards for radiation dose reduction. Comparison: CT scan of the head and maxillofacial structures dated 02/14/2022. CT scan of the head, face, cervical spine without contrast dated 06/13/2020. Findings: Head and maxillofacial CT: There is very minimal subarachnoid blood involving the left sylvian fissure region. There is interval development of very minimal high density along the right parafalcine frontal region which may represent minimal subdural blood. There is minimal high density in the subarachnoid space in the lateral left posterior fossa region. This is best seen on the coronal reformatted sequences. There are no other areas of intracranial hemorrhage. There is no intraventricular blood. There is no intraparenchymal blood. The brain parenchymal volume appears appropriate for patient's age. There is normal arevalo-white matter distinction. There is mild chronic small vessel ischemic disease. There is no hydrocephalus. There is minimal bony irregularity involving the floor of the left orbit seen. There is minimal air seen in the left intraorbital extraconal region inferiorly near the area of orbital floor bony irregularity concerning for fracture. There are large amounts of fluid and likely high density blood within the left maxillary sinus. There is no other skull or maxillofacial fracture seen. There is no retrobulbar hematoma. Globes are intact. There is minimal mucosal thickening involving the right maxillary sinus. There is a small amount of fluid within the right mastoid air cells. Cervical spine: There is no acute cervical spine fracture. There is interval mild loss of height involving the anterior right side of the T1 vertebra with no cortical disruption seen and is suspected to be chronic. Again seen, grade 1 anterolisthesis of C7 on T1. There are hypertrophic cervical spine vertebral body spurs and facet arthropathy/hypertrophy. There is no significant neck soft tissue abnormality. The visualized upper lung varela are clear. Impression: 1: There is a minimal amount of subarachnoid blood seen in the region of the left sylvian fissure, right parafalcine frontal lobe region, and left posterior fossa region laterally. There is no intraparenchymal blood or intraventricular blood seen. 2: There is a subtle nondisplaced fracture involving the left orbital floor with minimal extraconal, left intraorbital air adjacent to the fracture. There are large amounts of blood in the left maxillary sinus. 3: There is no other skull or maxillofacial fracture. 4: There is no acute cervical spine fracture. 5: There is interval development of a mild chronic compression fracture deformity involving the T1 vertebra. Results of this report were discussed with Dr. Susana Bojorquez via the telephone on 03/21/2023 at 0858 hours Dictated by: Dictated on workstation # [id number]
[2023-03-21] MEDS ORDERED: MELO15TA39 PO (12:55)
[2023-03-21] MEDS ORDERED: CYAN500T44 PO (12:55)
[2023-03-21] MEDS ORDERED: fentaNYL INJECTION 100 MCG/2 ML VIAL ONE (13:22)
[2023-03-21] MEDS ORDERED: fentaNYL INJECTION 100 MCG/2 ML VIAL IVP PRN (13:30)
--- NOTE | 2023-03-21 14:45 | Short Stay Summary-Hospitalist ---
History of Present Illness HPI/Chief Complaint Marcia Araya is a 72 year old female with PMH myasthenia gravis, chronic pancreatitis, history of gastric bypass, PEG tube, osteoporosis, who presented after a fall at her care home. She has been on hospice with [facility]. She does not remember what happened. She is a poor historian. She is exhibiting tangential thinking and paranoia. She reports being hospitalized a couple months ago requiring intubation. We discussed her recent decline and poor prognosis. We discussed returning to [facility] and she was in agreement. Source: patient Exam Limitations: no limitations Date Seen 03/21/23 Time Seen by a Provider: 09:50 Attending Physician Wade Jefferson MD PCP Admitting Physician: Brenda Pearson DO Attending Physician: Daryn Ellis MD Referring Physician Date of Admission Mar 21, 2023 at 03:40 Home Medications & Allergies Home Medications Reviewed patient Home Medication Reconciliation performed by pharmacy medication reconciliations mechanical facilities technician and/or nursing. Patients Allergies have been reviewed. Allergies Allergies Coded Allergies diphenhydramine (Verified Allergy, Intermediate, MUSCLE PAIN; AGITATION, 06/09/19) promethazine (Verified Allergy, Mild, AGITATION, 06/09/19) magnesium (Unverified Adverse Reaction, Unknown, 03/21/23) Found on care home chart as an allergy Past Wekcaks-Xlqdel-Eiyazg Hx Patient Social History Tobacco Use?: No Smoking Status: Never a Smoker Use of E-Cig and/or Vaping dev: No Use of E-Cig and/or Vaping Juan: Unknown if Ever Used Substance use?: Unable to obtain Alcohol Use?: No Pt feels they are or have been: No Immunizations Up To Date Date of Influenza Vaccine: Jul 06, 2015 First/Initial COVID19 Vaccinat: 10/10/20 Second COVID19 Vaccination Miki: 11/07/20 Tetanus Booster (TDap): Unknown Date of Pneumonia Vaccine: Aug 18, 2012 Seasonal Allergies Seasonal Allergies: No Current Status status: No status: No Advance Directives: Yes Advance Directive Location: [facility] Communicates: Verbally Primary Language: Azerbaijani Preferred Spoken Language: Azerbaijani Is interpretation needed?: No Implanted or Applied Medical D: Other Past Medical History Surgeries: Gallbladder, Orthopedic Pneumonia Currently Using CPAP: No Currently Using BIPAP: No Sexually Transmitted Disease: No HIV/AIDS: No Pancreatitis, Chronic Diarrhea Osteoporosis, Fractures Tonsilitis Loss of Vision: Denies Hearing Impairment: Denies Anxiety Blood Disorders: No Adverse Reaction/Blood Tranf: No MG sp peg Family Medical History Diabetes mellitus 19 MOTHER FH: lung cancer 19 FATHER Cancer, Diabetes Review of Systems Constitutional: see HPI Physical Exam Physical Exam Vital Signs Vital Signs - First Documented 03/20/23 22:55 Temp 36.3 Pulse 55 Resp 22 B/P (MAP) 132/59 (83) Pulse Ox 99 O2 Delivery Room Air Capillary Refill : Less Than 3 Seconds Height, Weight, BMI Height: 5'5.00" Weight: 113lbs. 0oz. 51.803798sn; 15.43 BMI Method:Stated General Appearance: Chronically ill, Cachetic Eyes: Bilateral Eye Abnormal EOM ([place]) Respiratory: Chest Non Tender, Lungs Clear, Normal Breath Sounds, No Respiratory Distress Cardiovascular: Regular Rate, Rhythm, No Edema, No Gallop Gastrointestinal: Normal Bowel Sounds, Non Tender, Soft, Other (PEG) Extremity: Normal Inspection, No Pedal Edema Neurologic/Psychiatric: Alert, Other (tangential thinking, paranoia) Skin: Warm/Dry, Ecchymosis, Other (Multiple ecchymosis and contusions and skin tears) Results Results/Procedures Labs Laboratory Tests 03/20/23 23:30 03/21/23 00:10 03/21/23 05:50 Patient resulted labs reviewed. Imaging: Reviewed Imaging Report, Discussed Imaging with Radiologist Short Stay Diagnosis Discharge Diagnosis-Short Stay Admission Diagnosis Facial fracture Final Discharge Diagnosis Facial fracture, subarachnoid hemorrhage, myasthenia gravis Conclusion Plan Fall Facial fracture Subarachnoid hemorrhage Myasthenia gravis Osteoporosis Poor prognosis Discharged back to [facility] Diagnosis/Problems Diagnosis/Problems (1) Fall at care home Status: Acute Qualifiers: Qualified Codes: W19.XXXA - Unspecified fall, initial encounter; Y92.129 - Unspecified place in care home as the place of occurrence of the external cause (2) Closed fracture of left orbital floor Status: Acute Qualifiers: Qualified Codes: S02.32XS - Fracture of orbital floor, left side, sequela (3) Facial contusion Status: Acute Qualifiers: Qualified Codes: S00.83XS - Contusion of other part of head, sequela (4) Subarachnoid hemorrhage following injury Status: Acute Qualifiers: Qualified Codes: S06.6XAA - Traumatic subarachnoid hemorrhage with loss of consciousness status unknown, initial encounter (5) Poor prognosis Status: Acute (6) Myasthenia gravis Status: Chronic DARYN ELLIS MD Mar 21, 2023 14:45
== END 2023-03-21 14:45 | disposition hospice, inpatient (51) | DRG 86 ==
LOC: EDUNIT# 22:54 → ER FS 22:55 → ICU 03-21 03:40
PROVIDERS: ADMIT Internal Medicine; ATTEND Internal Medicine
DX: S06.6X0A Traumatic subarachnoid hemorrhage without loss of consciousness, initial encounter (principal); K86.1 Other chronic pancreatitis; N39.0 Urinary tract infection, site not specified; S02.32XA Fracture of orbital floor, left side, initial encounter for closed fracture; G70.00 Myasthenia gravis without (acute) exacerbation; Y92.129 Unspecified place in nursing home as the place of occurrence of the external cause; W18.30XA Fall on same level, unspecified, initial encounter; S00.83XA Contusion of other part of head, initial encounter; M81.0 Age-related osteoporosis without current pathological fracture; F41.9 Anxiety disorder, unspecified; Z66 Do not resuscitate; Z51.5 Encounter for palliative care; N18.9 Chronic kidney disease, unspecified; E03.9 Hypothyroidism, unspecified; I50.9 Heart failure, unspecified; Z90.81 Acquired absence of spleen; Z98.84 Bariatric surgery status; R40.2422 Glasgow coma scale score 9-12, at arrival to emergency department
CPT/HCPCS: 12013; 36415; 51701; 70450; 70486; 71045; 72125; 72170; 73030; 80048; 80053; 80076; 81000; 83735; 84100; 85007; 85027; 87077; 87081; 87088; 87186; 93041; 96365

== ENCOUNTER 2023-07-12 18:03 | Emergency (ER) | payer MEDICARE, MEDICAID ==
[~2023-07-12] VITALS: Ht 162 cm; Wt 45.0 kg
[~2023-07-12 18:03] MED LIST changes: +DIPH1TAB25 PO; +ROPI0.5T37 PO; -ROPI0.5T4 PO
[2023-07-12] MEDS ORDERED: RT-Ipratropium/Albuterol NEB 3 ML VIAL INH STA (18:11)
--- NOTE | 2023-07-12 18:22 | ED Cough/URI ---
General Chief Complaint: COVID19 Suspect/Confirmed Stated Complaint: COVID+ Nursing Triage Note: SENT OVER TO ER WITH ABNORMAL VITALS AND COVID POSITIVE. PT WEARS OXYGEN AT LONG-TERM AT 2LNC. Source: patient, EMS History of Present Illness Date Seen by Provider: Jul 12, 2023 Time Seen by Provider: 18:04 Initial Comments 72-year-old female presenting with EMS from [facility]. She was diagnosed with COVID on July 01, 2023. She has had a cough and some shortness of breath. She states that she was coughing tonight and the nursing staff had reported that her vital signs showed an O2 sat of 63% with a heart rate in the 140s. EMS got oxygen saturation of 98 to 100% on 4 L by nasal cannula. Heart rate is in the 80s and sinus rhythm. Blood pressure 107/52. Patient is in no distress currently. She does have a loose sounding cough but states she is having trouble getting anything to come up. Timing/Duration: just prior to arrival Severity/Quality: moderate, dry cough Prior Episodes/Possible Cause: frequent episodes Modifying Factors: Worse With Coughing Associated Symptoms: cough, shortness of breath Allergies and Home Medications Allergies Coded Allergies: diphenhydramine (Verified Allergy, Intermediate, MUSCLE PAIN; AGITATION, 06/09/19) promethazine (Verified Allergy, Mild, AGITATION, 06/09/19) magnesium (Unverified Adverse Reaction, Unknown, 03/21/23) Found on half-way chart as an allergy Patient Home Medication List Home Medication List Reviewed: Yes Abaloparatide (Tymlos) 1.56 Ml Pen.injctr, 80 MCG SC HS, (Reported) Entered as Reported by: MAY MASON on 04/17/20 1131 Acetaminophen (Tylenol Extra Strength) 500 Mg Tablet, 1,000 MG PO Q8H PRN for PAIN-MILD (1-4), (Reported) Entered as Reported by: DOLORES DYER on 01/18/22 1435 Albuterol Sulfate (Albuterol Sulfate) 2.5 Mg/3 Ml (0.083 %) Vial.neb, 2.5 MG INH Q4H PRN for SHORTNESS OF BREATH Prescribed by: ERIN HAMILTON on 07/12/23 1837 Carvedilol (Carvedilol) 3.125 Mg Tablet, 3.125 MG PO BID, (Reported) Entered as Reported by: ANGELO SETH on 06/09/19 1340 Cyanocobalamin (Vitamin B-12) (B-12) 500 Mcg Tablet, 500 MCG PO DAILY, (Reported) Entered as Reported by: JENN EPSTEIN on 03/21/23 1255 Diphenoxylate HCl/Atropine (Diphenoxylate-Atrop 2.5-0.025) 2.5 Mg-0.025 Mg Tablet, 1 TAB PO QID, (Reported) Entered as Reported by: JOHNIE PASTRANA on 03/21/23 0327 Duloxetine HCl (Duloxetine HCl) 60 Mg Capsule.dr, 60 MG PO BID, (Reported) Entered as Reported by: ANGELO SETH on 06/09/19 1340 Gabapentin (Neurontin) 300 Mg Capsule, 400 MG PO QID, (Reported) Entered as Reported by: MAY MASON on 04/17/20 1131 Gabapentin (Gabapentin) 100 Mg Capsule, 100 MG PO QID, (Reported) Entered as Reported by: DOLORES DYER on 01/18/22 1426 Lactulose (Lactulose) 10 Gram/15 Ml (15 Ml) Solution, 10 GM PO DAILY Prescribed by: JUAN CLARK MD on 02/27/23 1320 Levothyroxine Sodium (Levothyroxine Sodium) 100 Mcg Tablet, 100 MCG PO HS, (Reported) Entered as Reported by: DOLORES DYER on 01/18/22 1436 Lipase/Protease/Amylase (Creon Dr 24,000 Units Capsule) 1 Each Capsule., 4 CAP PO TIDWM, (Reported) Entered as Reported by: ANGELO SETH on 06/09/19 1340 Meloxicam (Meloxicam) 15 Mg Tablet, 15 MG PO DAILY, (Reported) Entered as Reported by: JENN EPSTEIN on 03/21/23 1255 Omeprazole (Omeprazole) 40 Mg Capsule.dr, 40 MG PO DAILY, (Reported) Entered as Reported by: RICCI BLAIR on 07/07/15 1540 Pravastatin Sodium (Pravastatin Sodium) 10 Mg Tablet, 10 MG PO HS, (Reported) Entered as Reported by: ANGELO SETH on 06/09/19 1340 Prednisone (Prednisone) 20 Mg Tab, 40 MG PEG DAILY Prescribed by: ERIN HAMILTON on 07/12/23 1837 Pyridostigmine [place] (Mestinon) 60 Mg Tab, 60 MG PO TID, (Reported) Entered as Reported by: RICCI BLAIR on 07/07/15 1445 Ropinirole HCl (Ropinirole HCl) 0.5 Mg Tablet, 0.5 MG PO HS, (Reported) Entered as Reported by: RICCI BLAIR on 07/07/15 1540 Sennosides/Docusate Sodium (Senna-Docusate Sodium Tablet) 8.6 Mg-50 Mg Tablet, 1 EACH PO BID Prescribed by: JUAN CLARK MD on 02/27/23 1320 Temazepam (Temazepam) 30 Mg Capsule, 30 MG PO HS PRN for SLEEP, (Reported) Entered as Reported by: ANGELO SETH on 06/09/19 1340 Review of Systems Review of Systems Constitutional: chills; No fever EENTM: no symptoms reported Respiratory: see HPI, cough, short of breath; No stridor, No wheezing Cardiovascular: no symptoms reported Gastrointestinal: no symptoms reported Genitourinary: no symptoms reported Musculoskeletal: no symptoms reported Skin: no symptoms reported Psychiatric/Neurological: Weakness Past Funmxqs-Yickfx-Qvptjp Hx Patient Social History Tobacco Use?: No Substance use?: No Alcohol Use?: No Immunizations Up To Date First/Initial COVID19 Vaccinat: 10/10/20 Second COVID19 Vaccination Miki: 11/07/20 Third COVID19 Vaccination Date: 07/30/21 Seasonal Allergies Seasonal Allergies: No Past Medical History Surgery/Hospitalization HX: Mystenia Gravis; g-tube; osteoporosis; malabsorption/malnutrition; bilateral shoulder fx repairs; L hip fx, hypothyroidism; CHF; Gastric bypass w/ stomach stapling, Cholecystectomy, Spleenectomy, COVID July 01, 2023 Surgeries: Yes (ORIF left hip, right shoulder sx, cholecystectomy, spleenectomy) Gallbladder, Orthopedic Respiratory: Yes Pneumonia Currently Using CPAP: No Currently Using BIPAP: No Cardiac: Yes Neurological: Yes (MYASTHENIA GRAVIS) Reproductive Disorders: No Female Reproductive Disorders: Denies Sexually Transmitted Disease: No HIV/AIDS: No Genitourinary: No Gastrointestinal: Yes (GASTRITIS, MALNUTRITION, GASTRIC BYPASS, STOMACH STAPLING) Pancreatitis, Chronic Diarrhea Musculoskeletal: Yes (Kyphoplasty vertebrae of compression fx) Osteoporosis, Fractures Endocrine: No HEENT: Yes Tonsilitis Loss of Vision: Denies Hearing Impairment: Denies Cancer: No Psychosocial: Yes Anxiety Integumentary: No Blood Disorders: No Adverse Reaction/Blood Tranf: No Family Medical History Diabetes mellitus 19 MOTHER FH: lung cancer 19 FATHER Cancer, Diabetes Physical Exam Vital Signs - First Documented 07/12/23 18:07 Temp 37.4 Pulse 89 Resp 16 B/P (MAP) 111/53 (72) Pulse Ox 98 O2 Delivery Nasal Cannula O2 Flow Rate 2.00 Capillary Refill : Less Than 3 Seconds Height: 5'5.00" Weight: 113lbs. 0oz. 51.638621ep; 17.00 BMI Method:Stated General Appearance: no apparent distress, cachetic, other (chronically ill appearing) HEENT: PERRL/EOMI Respiratory: chest non-tender, no respiratory distress, no accessory muscle use, decreased breath sounds, rhonchi; No stridor, No wheezing Cardiovascular: normal peripheral pulses, regular rate, rhythm Neurologic/Psychiatric: alert, oriented x 3 Skin: normal color, warm/dry Procedures/Interventions Date of ETT Placement: December 20, 2022 Time of ETT Placement: 1624 Progress/Results/Core Measures Suspected Sepsis SIRS Temperature: Pulse: 89 Respiratory Rate: 16 Blood Pressure 111 /53 Mean: 72 Results/Orders My Orders Orders - ERIN HAMILTON MD Ipratropium/Albuterol Inh Soln (Ipratrop (07/12/23 18:11) Svn Small Volume Nebulizer (07/12/23 18:11) Chest 1 View Ap/Pa Only (07/12/23 18:11) O2 (07/12/23 18:11) Vital Signs/I&O 07/12/23 07/12/23 07/12/23 18:07 18:11 18:52 Temp 37.4 Pulse 89 93 Resp 16 16 B/P (MAP) 111/53 (72) 98/69 Pulse Ox 98 94 O2 Delivery Nasal Cannula Nasal Cannula Room Air O2 Flow Rate 2.00 2.00 Capillary Refill : Less Than 3 Seconds Blood Pressure Mean: 72 Progress Note #1: Progress Note Differential diagnosis includes COVID, mucous plugging, pneumonia. On arrival patient is in no distress and oxygen saturations are doing well on 2 L by nasal cannula. Will order a chest x-ray to look for signs of pneumonia or pulmonary changes and a DuoNeb breathing treatment. She states that she is not taking any Mucinex or medicine to try and loosen her cough. Will recommend trying that. At this point I did not see any respiratory distress or reason that she would require admission. Will defer blood draw and lab testing based on her vitals looking good right now. Will try checking with her primary care provider, Dr. Pooja Gordon as well. Progress Note #2: Time: 18:40 Progress Note Chest x-ray does show some diffuse bilateral pulmonary opacities consistent with viral or atypical infection. This would be consistent with COVID. Her oxygen saturation continues to remain in the mid to upper 90% range. She had some improvement with the breathing treatment. I spoke with her primary care provider, Dr. Pooja Gordon. He had been told that her oxygen saturation was in the 60 to 70% and she was tachycardic and not responding. I advised him that EMS was not seen any of that when they arrived and she has not had any hypoxia like that for us here in the ED either. He stated that she had been off of oxygen when he had last seen her. He was in agreement that she could go back to the half-way and he was agreeable to the patient getting a steroid and breathing treatments as needed. She could continue on the supplemental oxygen as needed for now. Check back with him for continued concerns. Family is here with her and they stated they can drive her back to [facility]. She states she feels that she will do fine on room air for a short trip as she does not use the oxygen all the time. Family transported patient back to [place]. Diagnostic Imaging Diagonstic Imaging: Xray Plain Films/CT/US/NM/MRI: chest Comments NAME: JACK CARODNA [employer] REC#: [id number] PT STATUS: REG ER : 1950 PHYSICIAN: ERIN HAMILTON MD ADMIT DATE: 07/12/23/ER FS Draft Date of Exam:07/12/23 CHEST 1 VIEW AP/PA ONLY INDICATION: Covid infection with cough. EXAMINATION: Portable upright AP view of the chest was obtained. COMPARISON: Study of 03/21/2023. FINDINGS: Heart size and pulmonary vascularity are within normal limits. There is increased bilateral groundglass density with a central predominance. No definite consolidation is seen. There is mild bilateral pleural fluid. IMPRESSION: Bilateral pulmonary opacity may represent pneumonitis or atypical pneumonia with mild bilateral pleural effusion. Dictated on workstation # [id number] Dict: 07/12/231831 Trans: 07/12/231836 [facility] [id number] Interpreted by: SHANNON MOYA MD Electronically signed by: Reviewed: Reviewed by Me Departure Impression Primary Impression: COVID-19 virus infection Additional Impression: Cough in adult Disposition: 01 HOME, SELF-CARE Condition: Stable Departure-Patient Inst. Decision time for Depature: 18:41 Referrals: POOJA GORDON MD (PCP/Family) Primary Care Physician Patient Instructions: COVID-19 ED, Cough, Adult ED Add. Discharge Instructions: Start taking Albuterol breathing treatments up to every 4 hours as needed for shortness of breath and cough. This will help loosen your congestion and cough. Dr. Gordon also wanted to have you start a steroid to help with your cough and breathing. Prednisone 40 mg per your PEG tube daily x 3 days to help with cough, congestion and shortness of breath. Continue on supplemental Oxygen to help with breathing. Check back with Dr. Gordon for continued concerns. All discharge instructions reviewed with patient and/or family. Voiced und erstanding. Scripts Albuterol Sulfate (Albuterol Sulfate) 2.5 Mg/3 Ml (0.083 %) Vial.neb 2.5 MG INH Q4H PRN for SHORTNESS OF BREATH for 10 Days, #75 ML 1 Refill Prov: ERIN HAMILTON MD 07/12/23 Prednisone (Prednisone) 20 Mg Tab 40 MG PEG DAILY for Covid/Cough for 3 Days, #6 TAB 0 Refills Prov: ERIN HAMILTON MD 07/12/23 ERIN HAMILTON MD Jul 12, 2023 18:22
[2023-07-12] MEDS ORDERED: PRD20T PEG (18:37)
[2023-07-12] MEDS ORDERED: ALBU2.5V4 INH (18:37)
--- NOTE | 2023-07-12 18:37 | Diagnostic Imaging Report ---
INDICATION: Covid infection with cough. EXAMINATION: Portable upright AP view of the chest was obtained. COMPARISON: Study of 03/21/2023. FINDINGS: Heart size and pulmonary vascularity are within normal limits. There is increased bilateral groundglass density with a central predominance. No definite consolidation is seen. There is mild bilateral pleural fluid. IMPRESSION: Bilateral pulmonary opacity may represent pneumonitis or atypical pneumonia with mild bilateral pleural effusion. Dictated by: Dictated on workstation # [id number]
[2023-07-12 18:52] VITALS: BP 98/69
== END 2023-07-12 18:52 | disposition home or self-care (01) ==
LOC: EDUNIT# 18:03 → ER FS 18:04
DX: U07.1 COVID-19 (principal); R05.9 Cough, unspecified; R06.02 Shortness of breath; Z73.0 Burn-out
CPT/HCPCS: 71045

== ENCOUNTER 2023-07-14 20:07 | Emergency (ER) | payer MEDICARE, MEDICAID ==
[~2023-07-14] VITALS: Ht 167 cm; Wt 43.0 kg
[2023-07-14 20:07] VITALS: BP 112/46
[~2023-07-14 20:07] MED LIST changes: +ALBU2.5V4 INH; +PRD20T PEG
--- NOTE | 2023-07-14 20:09 | ED Dyspnea ---
General Stated Complaint: SOB History of Present Illness Date Seen by Provider: Jul 14, 2023 Time Seen by Provider: 20:09 Initial Comments 72-year-old female brought in from the retirement by EMS. EMS was called for low oxygen saturations reported in the retirement in the 70s. However when EMS arrived they report that she was in the low 90s and improved to mid 90s after a DuoNeb. Patient has known COVID. No reports of fevers or chills. Patient is reported to have breathing treatments but has not been receiving them at the retirement. She has been on 5 L at the retirement. Allergies and Home Medications Allergies Coded Allergies: diphenhydramine (Verified Allergy, Intermediate, MUSCLE PAIN; AGITATION, 06/09/19) promethazine (Verified Allergy, Mild, AGITATION, 06/09/19) magnesium (Unverified Adverse Reaction, Unknown, 03/21/23) Found on retirement chart as an allergy Patient Home Medication List Home Medication List Reviewed: Yes Abaloparatide (Tymlos) 1.56 Ml Pen.injctr, 80 MCG SC HS, (Reported) Entered as Reported by: MAY MASON on 04/17/20 1131 Acetaminophen (Tylenol Extra Strength) 500 Mg Tablet, 1,000 MG PO Q8H PRN for PAIN-MILD (1-4), (Reported) Entered as Reported by: DOLORES DYER on 01/18/22 1435 Albuterol Sulfate (Albuterol Sulfate) 2.5 Mg/3 Ml (0.083 %) Vial.neb, 2.5 MG INH Q4H PRN for SHORTNESS OF BREATH Prescribed by: ERIN HAMILTON on 07/12/23 1837 Carvedilol (Carvedilol) 3.125 Mg Tablet, 3.125 MG PO BID, (Reported) Entered as Reported by: ANGELO SETH on 06/09/19 1340 Cyanocobalamin (Vitamin B-12) (B-12) 500 Mcg Tablet, 500 MCG PO DAILY, (Reported) Entered as Reported by: JENN EPSTEIN on 03/21/23 1255 Diphenoxylate HCl/Atropine (Diphenoxylate-Atrop 2.5-0.025) 2.5 Mg-0.025 Mg Tablet, 1 TAB PO QID, (Reported) Entered as Reported by: JOHNIE PASTRANA on 03/21/23 0327 Duloxetine HCl (Duloxetine HCl) 60 Mg Capsule., 60 MG PO BID, (Reported) Entered as Reported by: ANGELO SETH on 06/09/19 1340 Gabapentin (Neurontin) 300 Mg Capsule, 400 MG PO QID, (Reported) Entered as Reported by: MAY MASON on 04/17/20 1131 Gabapentin (Gabapentin) 100 Mg Capsule, 100 MG PO QID, (Reported) Entered as Reported by: DOLORES DYER on 01/18/22 1426 Lactulose (Lactulose) 10 Gram/15 Ml (15 Ml) Solution, 10 GM PO DAILY Prescribed by: JUAN CLARK MD on 02/27/23 1320 Levofloxacin (Levofloxacin) 500 Mg Tablet, 500 MG PO DAILY Prescribed by: HALLEY LONG on 07/14/23 2123 Levothyroxine Sodium (Levothyroxine Sodium) 100 Mcg Tablet, 100 MCG PO HS, (Reported) Entered as Reported by: DOLORES DYER on 01/18/22 1436 Lipase/Protease/Amylase (Creon 24,000 Units Capsule) 1 Each Capsule., 4 CAP PO TIDWM, (Reported) Entered as Reported by: ANGELO SETH on 06/09/19 1340 Meloxicam (Meloxicam) 15 Mg Tablet, 15 MG PO DAILY, (Reported) Entered as Reported by: JENN EPSTEIN on 03/21/23 1255 Omeprazole (Omeprazole) 40 Mg Capsule.dr, 40 MG PO DAILY, (Reported) Entered as Reported by: RICCI BLAIR on 07/07/15 1540 Pravastatin Sodium (Pravastatin Sodium) 10 Mg Tablet, 10 MG PO HS, (Reported) Entered as Reported by: ANGELO SETH on 06/09/19 1340 Prednisone (Prednisone) 20 Mg Tab, 40 MG PEG DAILY Prescribed by: ERIN HAMILTON on 07/12/23 1837 Pyridostigmine [place] (Mestinon) 60 Mg Tab, 60 MG PO TID, (Reported) Entered as Reported by: RICCI BLAIR on 07/07/15 1445 Ropinirole HCl (Ropinirole HCl) 0.5 Mg Tablet, 0.5 MG PO HS, (Reported) Entered as Reported by: RICCI BLARI on 07/07/15 1540 Sennosides/Docusate Sodium (Senna-Docusate Sodium Tablet) 8.6 Mg-50 Mg Tablet, 1 EACH PO BID Prescribed by: JUAN CLARK MD on 02/27/23 1320 Temazepam (Temazepam) 30 Mg Capsule, 30 MG PO HS PRN for SLEEP, (Reported) Entered as Reported by: ANGELO SETH on 06/09/19 1340 Review of Systems Review of Systems Constitutional: see HPI Respiratory: see HPI, cough, short of breath Cardiovascular: no symptoms reported Gastrointestinal: no symptoms reported Musculoskeletal: no symptoms reported Past Tcfemjj-Qwxrnl-Asppbr Hx Immunizations Up To Date First/Initial COVID19 Vaccinat: 10/10/20 Second COVID19 Vaccination Miki: 11/07/20 Third COVID19 Vaccination Date: 07/30/21 Seasonal Allergies Seasonal Allergies: No Past Medical History Surgery/Hospitalization HX: Mystenia Gravis; g-tube; osteoporosis; malabsorption/malnutrition; bilateral shoulder fx repairs; L hip fx, hypothyroidism; CHF; Gastric bypass w/ stomach stapling, Cholecystectomy, Spleenectomy, COVID July 01, 2023 Surgeries: Yes (ORIF left hip, right shoulder sx, cholecystectomy, spleenectomy) Gallbladder, Orthopedic Respiratory: Yes Pneumonia Currently Using CPAP: No Currently Using BIPAP: No Cardiac: Yes Neurological: Yes (MYASTHENIA GRAVIS) Reproductive Disorders: No Female Reproductive Disorders: Denies Sexually Transmitted Disease: No HIV/AIDS: No Genitourinary: No Gastrointestinal: Yes (GASTRITIS, MALNUTRITION, GASTRIC BYPASS, STOMACH STAPLING) Pancreatitis, Chronic Diarrhea Musculoskeletal: Yes (Kyphoplasty vertebrae of compression fx) Osteoporosis, Fractures Endocrine: No HEENT: Yes Tonsilitis Loss of Vision: Denies Hearing Impairment: Denies Cancer: No Psychosocial: Yes Anxiety Integumentary: No Blood Disorders: No Adverse Reaction/Blood Tranf: No Family Medical History Diabetes mellitus 19 MOTHER FH: lung cancer 19 FATHER Cancer, Diabetes Physical Exam Vital Signs Vital Signs - First Documented Capillary Refill : Height, Weight, BMI Height: 5'5.00" Weight: 113lbs. 0oz. 51.037926mj; 17.00 BMI Method:Stated General Appearance: Cachetic, Thin Respiratory: No Accessory Muscle Use, No Respiratory Distress, Decreased Breath Sounds, Other (Mild bilateral coarse breath sounds) Cardiovascular: Regular Rate, Rhythm, No Edema Extremity: Normal Capillary Refill Neurologic/Psychiatric: No Motor/Sensory Deficits, Normal Mood/Affect Skin: Normal Color, Warm/Dry Procedures/Interventions Date of ETT Placement: December 20, 2022 Time of ETT Placement: 1624 Progress/Results/Core Measures Results/Orders Lab Results Laboratory Tests Test 07/14/23 20:30 Range/Units White Blood Count 39.6 *H 4.3-11.0 10^3/uL Red Blood Count 3.82 3.80-5.11 10^6/uL Hemoglobin 12.0 11.5-16.0 g/dL Hematocrit 36 35-52 % Mean Corpuscular Volume 95 80-99 fL Mean Corpuscular Hemoglobin 31 25-34 pg Mean Corpuscular Hemoglobin Concent 33 32-36 g/dL Red Cell Distribution Width 14.0 10.0-14.5 % Platelet Count 422 H 130-400 10^3/uL Mean Platelet Volume 10.1 9.0-12.2 fL Immature Granulocyte % (Auto) 1 % Neutrophils (%) (Auto) 92 H 42-75 % Lymphocytes (%) (Auto) 3 L 12-44 % Monocytes (%) (Auto) 4 0-12 % Eosinophils (%) (Auto) 0 0-10 % Basophils (%) (Auto) 0 0-10 % Neutrophils # (Auto) 36.4 H 1.8-7.8 10^3/uL Lymphocytes # (Auto) 1.3 1.0-4.0 10^3/uL Monocytes # (Auto) 1.5 H 0.0-1.0 10^3/uL Eosinophils # (Auto) 0.0 0.0-0.3 10^3/uL Basophils # (Auto) 0.1 0.0-0.1 10^3/uL Immature Granulocyte # (Auto) 0.4 H 0.0-0.1 10^3/uL Neutrophils % (Manual) 79 % Lymphocytes % (Manual) 4 % Monocytes % (Manual) 4 % Metamyelocytes % 2 % Band Neutrophils 8 % Atypical Lymphocytes 2 % Reactive Lymphocytes 1 % Toxic Granulation 4+ Platelet Estimate INCREASED Poikilocytosis MODERATE Target Cells SLIGHT Acanthocytes SLIGHT Schistocytes SLIGHT Blood Morphology Comment ABNORMAL Sodium Level 134 L 135-145 MMOL/L Potassium Level 7.3 *H 3.6-5.0 MMOL/L Chloride Level 103 98-107 MMOL/L Carbon Dioxide Level 24 21-32 MMOL/L Anion Gap 7 5-14 MMOL/L Blood Urea Nitrogen 30 H 7-18 MG/DL Creatinine 1.36 H 0.60-1.30 MG/DL Estimat Glomerular Filtration Rate 41 BUN/Creatinine Ratio 22 Glucose Level 114 H 70-105 MG/DL Calcium Level 8.0 L 8.5-10.1 MG/DL Corrected Calcium 9.4 8.5-10.1 MG/DL Total Bilirubin 0.3 0.1-1.0 MG/DL Aspartate Amino Transf (AST/SGOT) 47 H 5-34 U/L Alanine Aminotransferase (ALT/SGPT) 22 0-55 U/L Alkaline Phosphatase 163 H 40-136 U/L Total Protein 5.2 L 6.4-8.2 GM/DL Albumin 2.2 L 3.2-4.5 GM/DL My Orders Orders - HALLEY LONG DO Dexamethasone Injection (Dexamethasone (07/14/23 20:15) Chest 1 View Ap/Pa Only (07/14/23 20:11) Cbc And Automated Diff (07/14/23 20:11) Comprehensive Metabolic Panel (07/14/23 20:11) Ed Iv/Invasive Line Start (07/14/23 20:12) Ns Iv 500 Ml (Ns Iv 500 Ml) (07/14/23 20:15) Manual Differential (07/14/23 20:30) Levofloxacin Tablet (Levofloxacin Tabl (07/14/23 21:30) Medications Given in ED Current Medications Medications Dose Ordered Sig/Lola Route Start Time Stop Time Status Last Admin Dose Admin Dexamethasone Sodium Phosphate 10 mg ONCE ONCE IV 07/14/23 20:15 07/14/23 20:16 DC 07/14/23 20:33 10 MG Levofloxacin 500 mg ONCE ONCE PO 07/14/23 21:30 07/14/23 21:31 DC 07/14/23 21:29 500 MG Sodium Chloride 500 ml @ 0 mls/hr Q0M ONCE IV 07/14/23 20:15 07/14/23 20:16 DC 07/14/23 20:32 0 MLS/HR Vital Signs/I&O 07/14/23 07/14/23 07/14/2323 20:07 20:07 20:47 21:55 Temp 36.7 Pulse 69 69 Resp 22 20 B/P (MAP) 112/46 (68) Pulse Ox 100 100 100 O2 Delivery Nasal Cannula Nasal Cannula Nasal Cannula Nasal Cannula O2 Flow Rate 3.00 3.00 5.00 2.00 Progress Progress Note : Progress Note Patient has a likely pneumonia right upper lobe and I will start her on Levaquin. Patient was a hospice patient however her retirement was not aware of this. Family reports that she has been on hospice for a while. Patient oxygen saturations are in the upper 90s on 2 L the whole time she was here. Due to her being on hospice and family want limited care she will be sent back on L evaquin with no further hospitalization or management needed at this time. We did make the retirement aware of her being on hospice and they will follow-up on this in the morning. Patient was stable upon discharge home. Departure Impression Primary Impression: COVID-19 virus infection Additional Impressions: Hospice care patient Pneumonia Qualified Codes: J18.9 - Pneumonia, unspecified organism Disposition: 01 HOME, SELF-CARE Condition: Unchanged Departure-Patient Inst. Referrals: POOJA GORDON MD (PCP/Family) Primary Care Physician Patient Instructions: COVID-19 (DC), Palliative Care Add. Discharge Instructions: Please use prescribed breathing treatments as directed. Scripts Levofloxacin (Levofloxacin) 500 Mg Tablet 500 MG PO DAILY, #7 TAB 0 Refills Prov: HALLEY LONG DO 07/14/23 HALLEY LONG DO Jul 14, 2023 20:09
[2023-07-14] MEDS ORDERED: dexAMETHasone INJ 10 MG/ML 1 ML VIAL IV ONE (20:15)
[2023-07-14] MEDS ORDERED: NS IV 500 ML 500 ML IV ONE (20:15)
[2023-07-14 20:37] LABS: BASOPHILS # (AUTO) 0.1 10^3/uL (0.0-0.1); BASOPHILS % (AUTO) 0 % (0-10); EOSINOPHILS % (AUTO) 0 % (0-10); HEMATOCRIT 36 % (35-52); LYMPHOCYTES # (AUTO) 1.3 10^3/uL (1.0-4.0); LYMPHOCYTES % (AUTO) 3 % (12-44); MEAN CORPUSCULAR HEMOGLOBIN 31 pg (25-34); MEAN CORPUSCULAR HGB CONC 33 g/dL (32-36); MEAN CORPUSCULAR VOLUME 95 fL (80-99); MEAN PLATELET VOLUME 10.1 fL (9.0-12.2); MONOCYTES # (AUTO) 1.5 10^3/uL (0.0-1.0); MONOCYTES % (AUTO) 4 % (0-12); NEUTROPHILS # (AUTO) 36.4 10^3/uL (1.8-7.8); NEUTROPHILS % (AUTO) 92 % (42-75); PLATELET COUNT 422 10^3/uL (130-400)
[2023-07-14 20:43] LABS: WHITE BLOOD COUNT 39.6 10^3/uL (4.3-11.0)
--- NOTE | 2023-07-14 20:47 | Diagnostic Imaging Report ---
INDICATION: Shortness of breath Portable chest 8:32 PM There is faint increased density in the right upper lung compared to the left. There may be a small left pleural effusion. Heart size and pulmonary vascularity are within normal limits. IMPRESSION: Questionable faint density right lung that could represent pneumonia. Dictated by: Dictated on workstation # [id number]
[2023-07-14 20:57] LABS: CREATININE SERUM 1.36 MG/DL (0.60-1.30); POTASSIUM 7.3 MMOL/L (3.6-5.0)
[2023-07-14 20:58] LABS: ALBUMIN 2.2 GM/DL (3.2-4.5); BILIRUBIN,TOTAL 0.3 MG/DL (0.1-1.0); TOTAL PROTEIN 5.2 GM/DL (6.4-8.2)
[2023-07-14 21:11] LABS: ATYPICAL LYMPHOCYTES 2 %; BAND NEUTROPHILS 8 %; LYMPHOCYTES % (MANUAL) 4 %; METAMYELOCYTES % 2 %; MONOCYTES % (MANUAL) 4 %; NEUTROPHILS % (MANUAL) 79 %; PLATELET ESTIMATE INCREASED; RBC MORPH ABNORMAL; REACTIVE LYMPHOCYTES 1 %
[2023-07-14 21:12] LABS: ACANTHOCYTES SLIGHT; SCHISTOCYTES SLIGHT; TARGET CELLS SLIGHT; TOXIC GRANULATION/VACUOLAZATIO 4+
[2023-07-14 21:13] LABS: POIKILOCYTOSIS MODERATE
[2023-07-14] MEDS ORDERED: LEVO-55 PO (21:23)
[2023-07-14] MEDS ORDERED: LevoFLOXacin 500 MG TABLET PO ONE (21:30)
== END 2023-07-14 21:57 | disposition home or self-care (01) ==
LOC: EDUNIT# 20:07 → ER FS 20:08
DX: U07.1 COVID-19 (principal); R06.02 Shortness of breath; J18.9 Pneumonia, unspecified organism
CPT/HCPCS: 36415; 71045; 80053; 85007; 85027